=== PATIENT | male | born 1945 | race American Indian/Alaskan Native ===

== ENCOUNTER 2017-02-07 19:18 | Inpatient (IN) | payer MEDICARE ==
[2017-02-07 19:19] VITALS: PULSE 75; BMI 17.2
[2017-02-07 19:30] LABS: BASO # 0.01 K/mm3 (0.0-2.0); BASO % 0.2 % (0.0-3.0); EOS # 0.2 (0.0-0.7); EOS % 3.4 % (1.5-5.0); GRAN # 2.99 (1.4-6.5); GRAN % 48.1 % (50.0-68.0); HEMATOCRIT 41.7 % (42.0-52.0); LYMPH # 2.5 (1.2-3.4); LYMPH % 39.5 % (22.0-35.0); MEAN CELL VOLUME 87.1 fl (80.0-105.0); MEAN CORPUSCULAR HEMOGLOBIN 28.6 pg (25.0-35.0); MEAN CORPUSCULAR HGB CONC 32.9 g/dl (31.0-37.0); MEAN PLATELET VOLUME 8.7 fl (7.0-11.0); MONO # 0.6 (0.1-0.6); MONO % 8.8 % (1.0-6.0); RED CELL DISTRIBUTION WIDTH 14.7 % (11.5-14.5); WHITE BLOOD COUNT 6.2 10^3/ul (4.5-11.0)
[2017-02-07 19:40] LABS: ALB/GLOB RATIO 1.1 (1.1-1.8); ALKALINE PHOSPHATASE 67 U/L (38-126); ALT/SGPT 47 U/L (7-56); AST/SGOT 50 U/L (17-59); BILIRUBIN,TOTAL 0.7 mg/dL (0.2-1.3); BLOOD UREA NITROGEN 15 mg/dL (7-21); CALCIUM 9.9 mg/dL (8.4-10.5); CARBON DIOXIDE 28 mmol/L (21-33); CHLORIDE 102 mmol/L (98-107); CHOLESTEROL 155 mg/dL (130-200); GFR AFRICAN-AMERICAN > 60; GLUCOSE,RANDOM 103 mg/dL (70-110); POTASSIUM 4.7 mmol/L (3.6-5.0); SODIUM 142 mmol/L (132-148); TOTAL PROTEIN 8.5 g/dL (5.8-8.3)
[2017-02-07 19:42] LABS: INR 1.03 (0.93-1.08); PARTIAL THROMBOPLASTIN TIME 23.9 Seconds (23.7-30.8)
--- NOTE | 2017-02-07 19:49 | CT ---
EXAM: CT Head Without Intravenous Contrast EXAM DATE/TIME: 02/07/2017 7:22 PM CLINICAL HISTORY: The patient age is 71 years old and is male; Screening exam; Additional info: Code stroke Facility exam id and description: Ct headstroke head w/o (code stroke) TECHNIQUE: Axial computed tomography images of the head/brain without intravenous contrast. All CT scans at this facility use one or more dose reduction techniques, viz.: automated exposure control; ma/kV adjustment per patient size (including targeted exams where dose is matched to indication; i.e. head); or iterative reconstruction technique. COMPARISON: CT - HEAD W/O CONTRAST 09/29/2015 12:19:22 PM FINDINGS: Brain: The left middle cerebral artery is hyperdense, new compared to the prior study. This is concerning for a hyperdense MCA sign associated with acute ischemic change. An acute territorial type infarct is not visualized at this time. There are periventricular foci of hypodensity, likely representing small vessel ischemic disease in a patient this age. The acuity of the white matter disease is indeterminate. There is mild prominence of the sulci, compatible with atrophy. No acute intracranial hemorrhage is seen. Midline shift: There is no midline shift. Ventricles: There is stable ventriculomegaly. Bones/joints: The calvarium demonstrates no evidence for a depressed fracture. Soft tissues: No acute abnormality. Vasculature: There is atherosclerotic calcification of the cavernous internal carotid arteries and distal vertebral arteries. Sinuses: Unremarkable as visualized. No acute sinusitis. Mastoid air cells: No mastoid effusion. IMPRESSION: 1. The left middle cerebral artery is hyperdense, new compared to the prior study. This is concerning for a hyperdense MCA sign associated with acute ischemic change. An acute territorial type infarct is not visualized at this time. MRI/MRA is recommended, as clinically indicated. 2. No acute intracranial hemorrhage. 3. There are periventricular foci of hypodensity, likely representing small vessel ischemic disease in a patient this age. 4. Mild atrophy. 5. There is stable ventriculomegaly.
[2017-02-07 19:51] LABS: TROPONIN I 0.03 ng/mL
[2017-02-07 20:01] LABS: VENOUS BLOOD GAS BASE EXCESS 3.3 mmol/L (0.0-2.0); VENOUS BLOOD PH 7.39 (7.32-7.43)
--- NOTE | 2017-02-07 21:11 | CT ---
EXAM: CT Angiography Head With Intravenous Contrast EXAM DATE/TIME: 02/07/2017 8:07 PM CLINICAL HISTORY: The patient age is 71 years old and is male; Screening exam; CVA Facility exam id and description: Ct angiohd angiography head TECHNIQUE: Axial computed tomographic angiography images of the head with intravenous contrast using CT angiography protocol. All CT scans at this facility use one or more dose reduction techniques, viz.: automated exposure control; ma/kV adjustment per patient size (including targeted exams where dose is matched to indication; i.e. head); or iterative reconstruction technique. MIP reconstructed images were created and reviewed. Coronal and sagittal reformatted images were created and reviewed. CONTRAST: 139 mL of OMNI 350 administered intravenously. COMPARISON: CT - HEAD W/O (CODE STROKE) 02/07/2017 7:20:53 PM FINDINGS: Right internal carotid artery: Atherosclerotic changes are identified of the cavernous internal carotid arteries bilaterally. There is approximately 50% stenosis of the cavernous right internal carotid artery. No aneurysm. Right anterior cerebral artery: No occlusion or significant stenosis. No aneurysm. Right middle cerebral artery: No occlusion or significant stenosis. No aneurysm. Right posterior cerebral artery: The right P1 segment of the posterior cerebral artery is hypoplastic. No occlusion or significant stenosis. No aneurysm. Right vertebral artery: A dominant distal left vertebral artery is identified. There are focal areas of nonvisualized flow within the distal right vertebral artery, consistent with severe stenoses or occlusion. Otherwise, there is a diffuse decrease in caliber of the visualized right vertebral artery. Atherosclerosis is also visualized of the distal right vertebral artery. Left internal carotid artery: There is absence of flow within the petrous left internal carotid artery, consistent with occlusion. There is decreased enhancement within the proximal cavernous left internal carotid artery, consistent with decreased blood flow. Flow is poorly visualized within the distal extracranial internal carotid artery on the left side. There is a small linear focus of enhancement in this region, which may represent residual flow within the vessel versus occlusion of the internal carotid artery and a small accessory vessel. No aneurysm. Left anterior cerebral artery: No occlusion or significant stenosis. No aneurysm. Left middle cerebral artery: No occlusion or significant stenosis. No aneurysm. Left posterior cerebral artery: No occlusion or significant stenosis. No aneurysm. Left vertebral artery: See above. Basilar artery: No significant stenosis. No occlusion. No aneurysm. Sella: Small foci of gas are identified adjacent to the sella, which are nonspecific. IMPRESSION: 1. A dominant distal left vertebral artery is identified. There are focal areas of nonvisualized flow within the distal right vertebral artery, consistent with severe stenoses or occlusion. 2. There is absence of flow within the petrous left internal carotid artery, consistent with occlusion. There is decreased enhancement within the proximal cavernous left internal carotid artery, consistent with decreased blood flow. 3. Atherosclerotic changes are identified of the cavernous internal carotid arteries bilaterally. There is approximately 50% stenosis of the cavernous right internal carotid artery. 4. Flow is poorly visualized within the distal extracranial internal carotid artery on the left side. There is a small linear focus of enhancement in this region, which may represent residual flow within the vessel versus occlusion of the internal carotid artery and a small accessory vessel. Correlation with a CTA of the neck is recommended. 5. Additional CT findings described above.
--- NOTE | 2017-02-07 21:15 | ED PDOC ---
Arrival/HPI - General Chief Complaint: Weakness/Neurological Deficit Time Seen by Provider: 02/07/17 19:21 Historian: Patient - History of Present Illness Narrative History of Present Illness (Text): 02/07/17 19:21 Geo Ewing is a 71 year old male, whose past medical history includes hypertension, atrial fibrillation, throat cancer, COPD, dilated cardiomyopathy, cirrhosis, and dementia, presents to the emergency department complaining of sudden onset right sided weakness and slurred speech 25 minutes prior to arrival. Denies any fever, chills, headache, dizziness, chest pain, difficulty breathing, nausea, vomiting, diarrhea, urinary symptoms, or any other complaints at this time. Time/Duration: 1/2 hour Symptom Onset: Sudden Symptom Course: Improving Severity Level: Moderate Activities at Onset: Rest Context: Home Past Medical History - Provider Review Nursing Documentation Reviewed: Yes - Infectious Disease Hx of Infectious Diseases: None - Cardiac Hx Cardiac Disorders: Yes (cardiomyopathy) Hx Hypertension: Yes - Pulmonary Other/Comment: Throat CA 15 years ago - Neurological Hx Dementia: Yes - Hematological/Oncological Hx Anemia: Yes Hx Cancer: Yes (throat/lung) - Integumentary Other/Comment: multiple ble skin discolorations, laceration above left eyelid - Musculoskeletal/Rheumatological Hx Falls: Yes - Gastrointestinal Hx Liver Failure: Yes (cirrhosis) - Psychiatric Hx Depression: Yes Hx Substance Use: No - Surgical History Hx Inguinal Hernia Repair: Yes (right) - Anesthesia Hx Anesthesia Reactions: No Hx Malignant Hyperthermia: No - Suicidal Assessment Feels Threatened In Home Enviroment: No Family/Social History - Physician Review Nursing Documentation Reviewed: Yes Family/Social History: No Known Family HX Smoking Status: Former Smoker Hx Alcohol Use: No Hx Substance Use: No Allergies/Home Meds Allergies/Adverse Reactions: Allergies No Known Allergies Allergy (Verified 09/29/15 11:05) Home Medications: Home Meds Medication Instructions Recorded Confirmed Fludrocortisone [Florinef Acetate] 0.1 mg PO DAILY 02/07/17 02/07/17 Furosemide [Lasix] 40 mg PO DAILY 02/07/17 02/07/17 Metoprolol Tartrate 25 mg PO DAILY 02/07/17 02/07/17 Potassium Chloride [Klor-Con 10] 10 meq PO DAILY 02/07/17 02/07/17 Review of Systems - Physician Review All systems were reviewed & negative as marked: Yes - Review of Systems Constitutional: Normal. absent: Fatigue, Fevers Respiratory: Normal. absent: SOB, Cough, Sputum Cardiovascular: Normal. absent: Chest Pain, Palpitations Gastrointestinal: Normal. absent: Abdominal Pain, Diarrhea, Nausea, Vomiting Neurological: Speech Changes (slurred speech ), Other (right sided weakness ). absent: Headache, Dizziness Physical Exam Vital Signs Reviewed: Yes Vital Signs Temp Pulse Pulse Resp BP Pulse Ox 02/07/17 23:58 97.7 F 110 H 110 H 20 153/110 H 02/07/17 23:46 166/109 H 02/07/17 23:37 112 H 184/108 H 20 L 02/07/17 19:25 99.4 F 113 H 20 183/127 H 99 Temperature: Afebrile Blood Pressure: Hypertensive Pulse: Tachycardic Respiratory Rate: Normal Appearance: Positive for: Well-Appearing, Non-Toxic, Comfortable Pain Distress: None Mental Status: Positive for: Alert and Oriented X 3 Finger Stick Blood Glucose: 114 - Systems Exam Head: Present: Atraumatic, Normocephalic Pupils: Present: PERRL Conjunctiva: Present: Normal Mouth: Present: Moist Mucous Membranes Respiratory/Chest: Present: Clear to Auscultation, Good Air Exchange. No: Respiratory Distress, Accessory Muscle Use Cardiovascular: Present: Regular Rate and Rhythm, Normal S1, S2. No: Murmurs Abdomen: Present: Normal Bowel Sounds. No: Tenderness, Distention, Peritoneal Signs Upper Extremity: Present: NORMAL PULSES, Neurovascularly Intact, Other (right upper extremity weakness ). No: Cyanosis, Edema Lower Extremity: Present: NORMAL PULSES, Neurovascularly Intact, Other (right lower extremity weakness. ). No: Edema, CALF TENDERNESS Neurological: Present: GCS=15, CN II-XII Intact. No: Speech Normal (slurred speech ) Skin: Present: Warm, Dry, Normal Color. No: Rashes Psychiatric: Present: Alert, Oriented x 3 Medical Decision Making ED Course and Treatment: Impression: A 71 year old male who presents to the emergency department complaining of right sided weakness and slurred speech for 25 minutes prior to arrival. Plan: -- EKG -- CT Head -- Labs -- Chest X-ray -- Reassess and disposition Progress Notes: 02/07/17 19:[address] Head results reviewed: IMPRESSION: 1. The left middle cerebral artery is hyperdense, new compared to the prior study. This is concerning for a hyperdense MCA sign associated with acute ischemic change. An acute territorial type infarct is not visualized at this time. MRI/MRA is recommended, as clinically indicated. 2. No acute intracranial hemorrhage. 3. There are periventricular foci of hypodensity, likely representing small vessel ischemic disease in a patient this age. 4. Mild atrophy. 5. There is stable ventriculomegaly. CT angio head results reviewed: IMPRESSION: 1. A dominant distal left vertebral artery is identified. There are focal areas of nonvisualized flow within the distal right vertebral artery, consistent with severe stenoses or occlusion. 2. There is absence of flow within the petrous left internal carotid artery, consistent with occlusion. There is decreased enhancement within the proximal cavernous left internal carotid artery, consistent with decreased blood flow. 3. Atherosclerotic changes are identified of the cavernous internal carotid arteries bilaterally. There is approximately 50% stenosis of the cavernous right internal carotid artery. 4. Flow is poorly visualized within the distal extracranial internal carotid artery on the left side. There is a small linear focus of enhancement in this region, which may represent residual flow within the vessel versus occlusion of the internal carotid artery and a small accessory vessel. Correlation with a CTA of the neck is recommended. 5. Additional CT findings described above. 02/07/17 22:[address] Bray who is aware and agrees with the plan to admit patient to telemetry for TIA. Accepts patient under hospitalist service. - Lab Interpretations Lab Results: 02/07/17 19:22 02/07/17 19:22 Lab Results 02/07/17 19:50: pO2 44, VBG pH 7.39, VBG pCO2 48.0, VBG HCO3 29.1 H, VBG Total CO2 30.6 H, VBG O2 Sat (Calc) 83.5 H, VBG Base Excess 3.3 H, VBG Potassium 4.3, Glucose 107, Lactate 1.6, FiO2 21.0, Sodium 138.0, Chloride 104.0, Venous Blood Potassium 4.3 02/07/17 19:22: Blood Type O POSITIVE, Antibody Screen Negative, BBK History Checked Patient has bt 02/07/17 19:22: Hemoglobin A1c 5.3 02/07/17 19:22: Sodium 142, Potassium 4.7, Chloride 102, Carbon Dioxide 28, Anion Gap 17, BUN 15, Creatinine 1.3, Est GFR ( Amer) > 60, Est GFR (Non- Af Amer) 55, Random Glucose 103, Calcium 9.9, Total Bilirubin 0.7, AST 50, ALT 47, Alkaline Phosphatase 67, Troponin I 0.03 D, Total Protein 8.5 H, Albumin 4.5, Globulin 4.0, Albumin/Globulin Ratio 1.1, Triglycerides 85, Cholesterol 155 , LDL Cholesterol Direct 71, HDL Cholesterol 62 H 02/07/17 19:22: PT 11.1, INR 1.03, APTT 23.9 02/07/17 19:22: WBC 6.2, RBC 4.79, Hgb 13.7 L, Hct 41.7 L, MCV 87.1, MCH 28.6, MCHC 32.9, RDW 14.7 H, Plt Count 194, MPV 8.7, Gran % 48.1 L, Lymph % (Auto) 39.5 H, Calloway % (Auto) 8.8 H, Eos % (Auto) 3.4, Baso % (Auto) 0.2, Gran # 2.99, Lymph # 2.5, Calloway # 0.6, Eos # 0.2, Baso # 0.01 I have reviewed the lab results: Yes - RAD Interpretation Narrative RAD Interpretations (Text): EXAM: CT Head Without Intravenous Contrast FINDINGS: Brain: The left middle cerebral artery is hyperdense, new compared to the prior study. This is concerning for a hyperdense MCA sign associated with acute ischemic change. An acute territorial type infarct is not visualized at this time. There are periventricular foci of hypodensity, likely representing small vessel ischemic disease in a patient this age. The acuity of the white matter disease is indeterminate. There is mild prominence of the sulci, compatible with atrophy. No acute intracranial hemorrhage is seen. Midline shift: There is no midline shift. Ventricles: There is stable ventriculomegaly. Bones/joints: The calvarium demonstrates no evidence for a depressed fracture. Soft tissues: No acute abnormality. Vasculature: There is atherosclerotic calcification of the cavernous internal carotid arteries and distal vertebral arteries. Sinuses: Unremarkable as visualized. No acute sinusitis. Mastoid air cells: No mastoid effusion. IMPRESSION: 1. The left middle cerebral artery is hyperdense, new compared to the prior study. This is concerning for a hyperdense MCA sign associated with acute ischemic change. An acute territorial type infarct is not visualized at this time. MRI/MRA is recommended, as clinically indicated. 2. No acute intracranial hemorrhage. 3. There are periventricular foci of hypodensity, likely representing small vessel ischemic disease in a patient this age. 4. Mild atrophy. 5. There is stable ventriculomegaly. EXAM: CT Angiography Head With Intravenous Contrast Dictated and Authenticated by: Burke Morocho MD FINDINGS: Right internal carotid artery: Atherosclerotic changes are identified of the cavernous internal carotid arteries bilaterally. There is approximately 50% stenosis of the cavernous right internal carotid artery. No aneurysm. Right anterior cerebral artery: No occlusion or significant stenosis. No aneurysm. Right middle cerebral artery: No occlusion or significant stenosis. No aneurysm. Right posterior cerebral artery: The right P1 segment of the posterior cerebral artery is hypoplastic. No occlusion or significant stenosis. No aneurysm. Right vertebral artery: A dominant distal left vertebral artery is identified. There are focal areas of nonvisualized flow within the distal right vertebral artery, consistent with severe stenoses or occlusion. Otherwise, there is a diffuse decrease in caliber of the visualized right vertebral artery. Atherosclerosis is also visualized of the distal right vertebral artery. Left internal carotid artery: There is absence of flow within the petrous left internal carotid artery, consistent with occlusion. There is decreased enhancement within the proximal cavernous left internal carotid artery, consistent with decreased blood flow. Flow is poorly visualized within the distal extracranial internal carotid artery on the left side. There is a small linear focus of enhancement in this region, which may represent residual flow within the vessel versus occlusion of the internal carotid artery and a small accessory vessel. No aneurysm. Left anterior cerebral artery: No occlusion or significant stenosis. No aneurysm. Left middle cerebral artery: No occlusion or significant stenosis. No aneurysm. Left posterior cerebral artery: No occlusion or significant stenosis. No aneurysm. Left vertebral artery: See above. Basilar artery: No significant stenosis. No occlusion. No aneurysm. Sella: Small foci of gas are identified adjacent to the sella, which are nonspecific. IMPRESSION: 1. A dominant distal left vertebral artery is identified. There are focal areas of nonvisualized flow within the distal right vertebral artery, consistent with severe stenoses or occlusion. 2. There is absence of flow within the petrous left internal carotid artery, consistent with occlusion. There is decreased enhancement within the proximal cavernous left internal carotid artery, consistent with decreased blood flow. 3. Atherosclerotic changes are identified of the cavernous internal carotid arteries bilaterally. There is approximately 50% stenosis of the cavernous right internal carotid artery. 4. Flow is poorly visualized within the distal extracranial internal carotid artery on the left side. There is a small linear focus of enhancement in this region, which may represent residual flow within the vessel versus occlusion of the internal carotid artery and a small accessory vessel. Correlation with a CTA of the neck is recommended. 5. Additional CT findings described above. 02/07/17 22:08 Radiology Orders: 02/07/17 19:22 HEAD W/O (CODE STROKE) [CT] Stat CHEST PORTABLE [RAD] Stat 02/07/17 20:07 ANGIOGRAPHY HEAD [CT] Stat Remote Broadcast Technician: Radiologist - Medication Orders Current Medication Orders: Aspirin (Aspirin Chewable) 81 mg PO DAILY [facility] Atorvastatin Calcium (Lipitor) 40 mg PO DIN [facility] Docusate Sodium (Colace) 100 mg PO BID [facility] Last Admin: 02/08/17 11:18 Dose: 100 mg Fludrocortisone Acetate (Florinef) 0.1 mg PO DAILY [facility] Last Admin: 02/08/17 09:47 Dose: 0.1 mg Furosemide (Lasix) 40 mg PO DAILY [facility] Last Admin: 02/08/17 09:47 Dose: 40 mg Heparin Sodium (Porcine) (Heparin) 5,000 units SC Q12 [facility] PRN Reason: Protocol Last Admin: 02/08/17 09:48 Dose: 5,000 units Metoprolol Tartrate (Lopressor) 25 mg PO DAILY [facility] Last Admin: 02/08/17 09:47 Dose: 25 mg Pantoprazole Sodium (Protonix Inj) 40 mg IVP DAILY [facility] Last Admin: 02/08/17 09:48 Dose: 40 mg Polyethylene Glycol (Miralax) 17 gm PO DAILY [facility] Last Admin: 02/08/17 11:18 Dose: 17 gm Potassium Chloride (Klor-Con 10) 10 meq PO DAILY [facility] Last Admin: 02/08/17 09:46 Dose: 10 meq Thiamine HCl (Vitamin B1 Tab) 100 mg PO BID [facility] Discontinued Medications Aspirin (Aspirin) 325 mg PO DAILY [facility] Last Admin: 02/08/17 09:46 Dose: 325 mg Aspirin (Ecotrin) Confirm Administered Dose 325 mg PO .STK-MED ONE Stop: 02/07/17 23:54 Last Admin: 02/08/17 00:00 Dose: Aspirin (Ecotrin) 325 mg PO STAT STA Stop: 02/07/17 23:54 Last Admin: 02/07/17 23:59 Dose: 325 mg Iohexol (Omnipaque 350 150 Ml) Confirm Administered Dose 150 ml .ROUTE .STK-MED ONE Stop: 02/07/17 20:13 NIHSS Scale (Bessie) Time Performed: 19:22 - How Severe is the Stoke Baseline Level of Consciousness: 0=Alert LOC to Questions: 0=Both comments correct LOC to commands: 0=Obeys both correctly Best Gaze: 0=Normal Visual: 0=No visual loss Facial: 0=Normal Motor Arm - Left: 0=No drift Motor Arm - Right: 3=No effort against gravity (falls immediately) Motor Leg - Left: 0=No drift Motor Leg - Right: 3=No effort against gravity (falls immediately) Limb Ataxia: 1=Present Upper or Lower Sensory: 1=Mild to moderate loss Best Language: 0=No aphasia Dysarthia: 1=Mild to moderate slurring Extinction & Inattention (Neglect): 1=Partial neglect (mild alfa-attention) Score: 10 Risk Level: Mod Stroke Risk rTPA Inclusion/Exclusion - Refusal of Treatment Patient Refused Treatment: No - Inclusion Criteria for Altepase Patient is 18 years or Older: Yes The Clinical Diagnosis of Ischemic Stroke That is Causing a Potentially Disabling Neurological Deficit: Yes Time of Onset is Well Established to be Less Than 270 Minute Before Treatment Would Begin: Yes Risk/Benefit Discussed With Patient/Family Member Present: Yes - Exclusion Criteria for Altepase Uncontrolled Hypertension at Time of Treatment (Systolic BP above 185 or Diastolic BP above 110 mmHg): No Active Internal Bleeding: No Known Bleeding Diathesis Including but Not Limited to: Platelets Below 100,000/ mm,PTT Above 40 sec After Heparin Use, Current Use of Oral Anitcoagulant With INR Greater Than 1.7 or PT Greater Than 15 secs: No Evidence of an Intracranial Hemorrhage: No Evidence of Major Acute Infarct With Signs Greater Than 1/3 MCA Territory: No Suspicion of Subarachnoid Hemorrhage on Pretreatment Evaluation Even if CT Head Negative For Hemorrhage: No - Warning to TPA With Conditions Condition: Rapid Improvement - Scribe Statement The provider has reviewed the documentation as recorded by the Hadleyibe King Godinez Provider Attestation: Provider Scribe Attestation: All medical record entries made by the Fernando were at my direction and personally dictated by me. I have reviewed the chart and agree that the record accurately reflects my personal performance of the history, physical exam, medical decision making, and the department course for this patient. I have also personally directed, reviewed, and agree with the discharge instructions and disposition. Disposition/Present on Arrival - Present on Arrival Any Indicators Present on Arrival: No History of DVT/PE: No History of Uncontrolled Diabetes: No Urinary Catheter: No History of Decub. Ulcer: No History Surgical Site Infection Following: None - Disposition Have Diagnosis and Disposition been Completed?: Yes Diagnosis: Transient ischemic attack (TIA) Disposition: HOSPITALIZED Disposition Time: 22:00 Condition: FAIR
--- NOTE | 2017-02-07 23:39 | CP.PCM.HP ---
History of Present Illness - History of Present Illness History of Present Illness: Geo Ewing is a 71 year old male with PMH of hypertension, atrial fibrillation, throat cancer, COPD, dilated cardiomyopathy, cirrhosis, and dementia, presents with complaining of sudden onset right sided weakness and slurred speech 25 minutes prior to arrival. Unable to get a complete ROS due to mental status. PMH: hypertension, atrial fibrillation, throat cancer, COPD, dilated cardiomyopathy, cirrhosis, and dementia PSH: unable to obtain FamilyHx: unable to obtain Meds: Metropolol, Klor Con, Lasix, Fludrocortisone Allergies: NKDA Social: Tobacco use in the past Present on Admission - Present on Admission Any Indicators Present on Admission: No Review of Systems - Review of Systems Systems not reviewed;Unavailable: Dementia Past Patient History - Infectious Disease Hx of Infectious Diseases: None - Past Social History Smoking Status: Former Smoker - CARDIAC Hx Cardiac Disorders: Yes (cardiomyopathy) Hx Hypertension: Yes - PULMONARY Other/Comment: Throat CA 15 years ago - NEUROLOGICAL Hx Dementia: Yes - HEMATOLOGICAL/ONCOLOGICAL Hx Anemia: Yes Hx Cancer: Yes (throat/lung) - INTEGUMENTARY Other/Comment: multiple ble skin discolorations, laceration above left eyelid - MUSCULOSKELETAL/RHEUMATOLOGICAL Hx Falls: Yes - GASTROINTESTINAL Hx Liver Failure: Yes (cirrhosis) - PSYCHIATRIC Hx Depression: Yes Hx Substance Use: No - SURGICAL HISTORY Hx Herniorrhaphy: Yes - ANESTHESIA Hx Anesthesia Reactions: No Hx Malignant Hyperthermia: No Meds Home Medications: Home Medication List Medication Instructions Recorded Confirmed Type Atorvastatin [Lipitor] 40 mg PO DIN #30 tab 02/09/17 Rx Rivaroxaban [Xarelto] 20 mg PO DAILY #30 tab 02/09/17 Rx Thiamine [Vitamin B1 Tab] 100 mg PO BID #14 tab 02/09/17 Rx Allergies/Adverse Reactions: Allergies Allergy/AdvReac Type Severity Reaction Status Date / Time No Known Allergies Allergy Verified 09/29/15 11:05 Physical Exam - Constitutional Appears: Confused, Cachectic - Head Exam Head Exam: NORMAL INSPECTION - Eye Exam Eye Exam: Normal appearance - Respiratory Exam Respiratory Exam: NORMAL BREATHING PATTERN - Extremities Exam Additional comments: 4/5 Strength in upper and lower extremeties - Neurological Exam Neurological exam: Reflexes Normal Additional comments: not oriented to person, place or time Results - Vital Signs Recent Vital Signs: Last Vital Signs Temp 99.4 F 02/07/17 19:25 Pulse 113 H 09/12/17 19:25 Resp 20 02/07/17 19:25 BP 183/127 H 02/07/17 19:25 Pulse Ox 99 02/07/17 19:25 - Labs Result Diagrams: 02/09/17 06:50 02/09/17 06:50 Assessment & Plan - Assessment and Plan (Free Text) Assessment: Geo Ewing is a 71 year old male with PMH of hypertension, atrial fibrillation, throat cancer, COPD, dilated cardiomyopathy, cirrhosis, and dementia, presents with complaining of sudden onset right sided weakness and slurred speech 25 minutes prior to arrival. Patient worked up for TIA. Plan: 1. TIA- rule out acute stroke - code stroke called - began stroke workup - CT head ordered and obtained: The left middle cerebral artery is hyperdense, new compared to the prior study. This is concerning for a hyperdense MCA sign associated with acute ischemic change. An acute territorial type infarct is not visualized at this time. MRI/MRA is recommended , as clinically indicated. No acute intracranial hemorrhage. There are periventricular foci of hypodensity, likely representing small vessel ischemic disease in a patient this age. Mild atrophy. There is stable ventriculomegaly. - CT angio of the head ordered and obtained: A dominant distal left vertebral artery is identified. There are focal areas of nonvisualized flow within the distal right vertebral artery, consistent with severe stenoses or occlusion. There is absence of flow within the petrous left internal carotid artery, consistent with occlusion. There is decreased enhancement within the proximal cavernous left internal carotid artery, consistent with decreased blood flow. Atherosclerotic changes are identified of the cavernous internal carotid arteries bilaterally. There is approximately 50% stenosis of the cavernous right internal carotid artery. Flow is poorly visualized within the distal extracranial internal carotid artery on the left side. There is a small linear focus of enhancement in this region, which may represent residual flow within the vessel versus occlusion of the internal carotid artery and a small accessory vessel. -Per David from ED, Dr. Rivera was spoken to about the stenosis in the carotid artery and he mentioned the use of TPA to the daughter of the patient, and she she said no to the use of it. - Neurology Dr. Rivera consulted - Started on Aspirin 325 - Placed on Neuro Check every 4 hours - Stroke scale ordered - Swallow evaluation ordered - Lipid panel ordered 2. COPD - medication if needed currently pt not clinically in respiratory distress or wheezing 3. Dilated Cardiomyopathy - continue lasix 4. HTN -continue home med lasix 5. Hx Afib - continue metropolol 6. DVT Prophylaxis - started on heparin 7. GI prophylaxis -started on protonix
[2017-02-07] MEDS ORDERED: Aspirin 325 mg EC Tablets PO ONE (23:53)
[2017-02-07] MEDS ORDERED: Aspirin 325 mg EC Tablets PO STA (23:53)
[2017-02-08 07:10] LABS: ALB/GLOB RATIO 1.1 (1.1-1.8); ALKALINE PHOSPHATASE 48 U/L (38-126); ALT/SGPT 40 U/L (7-56); AST/SGOT 37 U/L (17-59); BILIRUBIN,TOTAL 0.7 mg/dL (0.2-1.3); BLOOD UREA NITROGEN 14 mg/dL (7-21); CALCIUM 9.3 mg/dL (8.4-10.5); CARBON DIOXIDE 27 mmol/L (21-33); CHLORIDE 104 mmol/L (98-107); GFR AFRICAN-AMERICAN > 60; GLUCOSE,RANDOM 89 mg/dL (70-110); POTASSIUM 4.3 mmol/L (3.6-5.0); SODIUM 140 mmol/L (132-148); TOTAL PROTEIN 6.7 g/dL (5.8-8.3)
--- NOTE | 2017-02-08 08:56 | RAD ---
HISTORY: cva COMPARISON: 09/29/2015 FINDINGS: LUNGS: No active pulmonary disease. PLEURA: No significant pleural effusion identified, no pneumothorax apparent. CARDIOVASCULAR: Normal. OSSEOUS STRUCTURES: No significant abnormalities. VISUALIZED UPPER ABDOMEN: Normal. OTHER FINDINGS: None. IMPRESSION: No active disease.
[2017-02-08] MEDS: Potassium Chloride 10 mEq ER Tab PO SCH (09:46)
[2017-02-08] MEDS ORDERED: POLYETHYLENE GLYCOL 3350 17 GM/Dose PACKET PO SCH (10:00)
--- NOTE | 2017-02-08 10:02 | CARD ---
APPROVED REPORT EKG Measurement Heart [id number] NH 208P [id number] <Conclusion> Sinus tachycardia Nonspecific ST and T wave abnormality High Voltage-LVH.
[2017-02-08] MEDS: POLYETHYLENE GLYCOL 3350 17 GM/Dose PACKET PO SCH (11:18)
[2017-02-08 11:49] LABS: CHOLESTEROL 127 mg/dL (130-200)
--- NOTE | 2017-02-08 11:50 | CP.PCM.PN ---
<PABLITO THAKKAR - Last Filed: 02/08/17 15:35> Subjective - Date & Time of Evaluation Date of Evaluation: 02/08/17 Time of Evaluation: 10:00 - Subjective Subjective: patient was seen and examined bedside. Unable to verbalize any complaints. Objective - Vital Signs/Intake and Output Vital Signs (last 24 hours): Temp Pulse Resp BP Pulse Ox 98.9 F 115 H 20 136/85 99 02/08/17 06:00 02/08/17 10:00 02/08/17 06:00 02/08/17 09:47 02/08/17 06:00 Intake and Output: 02/08/17 02/08/17 06:59 18:59 Intake Total 380 Output Total 400 Balance -20 - Medications Medications: Current Medications Aspirin (Aspirin) 325 mg PO DAILY [facility] Last Admin: 02/08/17 09:46 Dose: 325 mg Docusate Sodium (Colace) 100 mg PO BID [facility] Last Admin: 02/08/17 11:18 Dose: 100 mg Fludrocortisone Acetate (Florinef) 0.1 mg PO DAILY [facility] Last Admin: 02/08/17 09:47 Dose: 0.1 mg Furosemide (Lasix) 40 mg PO DAILY [facility] Last Admin: 02/08/17 09:47 Dose: 40 mg Heparin Sodium (Porcine) (Heparin) 5,000 units SC Q12 [facility] PRN Reason: Protocol Last Admin: 02/08/17 09:48 Dose: 5,000 units Metoprolol Tartrate (Lopressor) 25 mg PO DAILY [facility] Last Admin: 02/08/17 09:47 Dose: 25 mg Pantoprazole Sodium (Protonix Inj) 40 mg IVP DAILY [facility] Last Admin: 02/08/17 09:48 Dose: 40 mg Polyethylene Glycol (Miralax) 17 gm PO DAILY [facility] Last Admin: 02/08/17 11:18 Dose: 17 gm Potassium Chloride (Klor-Con 10) 10 meq PO DAILY [facility] Last Admin: 02/08/17 09:46 Dose: 10 meq - Labs Labs: 02/08/17 05:30 PT 11.1 Seconds (9.9-11.8) 02/07/17 19:22 INR 1.03 (0.93-1.08) 02/07/17 19:22 APTT 23.9 Seconds (23.7-30.8) 02/07/17 19:22 - Constitutional Appears: No Acute Distress, Confused, Cachectic, Chronically Ill - Head Exam Head Exam: ATRAUMATIC, NORMAL INSPECTION - Eye Exam Eye Exam: Normal appearance, PERRL - ENT Exam ENT Exam: Mucous Membranes Moist Additional comments: L cheek is more puffed than R s/p throat CA - Neck Exam Neck Exam: Normal Inspection. absent: Lymphadenopathy, Meningismus - Respiratory Exam Respiratory Exam: Clear to Ausculation Bilateral, NORMAL BREATHING PATTERN. absent: Rales, Rhonchi, Wheezes, Respiratory Distress - Cardiovascular Exam Cardiovascular Exam: Tachycardia, REGULAR RHYTHM. absent: Gallop, JVD, Rubs, Murmur - GI/Abdominal Exam GI & Abdominal Exam: Soft, Normal Bowel Sounds. absent: Distended, Tenderness - Extremities Exam Extremities Exam: Full ROM, Normal Inspection. absent: Pedal Edema - Back Exam Back Exam: Full ROM, NORMAL INSPECTION - Neurological Exam Neurological Exam: Altered (pt follows simple commands, but is not able to verbalize words). absent: Motor Sensory Deficit, Oriented x3 (oriented x1 ( responds to name, but unable to verbalize other answers)) Neuro motor strength exam: Left Upper Extremity: 5, Right Upper Extremity: 5, Left Lower Extremity: 5, Right Lower Extremity: 5 Additional comments: pt not slurring words pt is aphasic no facial drooping noted - Skin Skin Exam: Normal Color, Warm Assessment and Plan - Assessment and Plan (Free Text) Assessment: 71 year old male with PMH of hypertension, atrial fibrillation, throat cancer, COPD, dilated cardiomyopathy, cirrhosis, and baseline dementia, presents with sudden onset "right sided weakness and slurred speech 25 minutes prior to arrival." Code stroke was called; NIHSS in ED was 10. TIA likely because pt currently shows no focal deficits or facial palsy. Difficult to assess baseline due to aphasia 2/2 ?old CVA vs dementia Plan: 1. TIA vs CVA - CT head showed hyperdense MCA sign associated with acute ischemic change. No acute intracranial hemorrhage. There are periventricular foci of hypodensity, likely representing small vessel ischemic disease in a patient this age. Mild atrophy. There is stable ventriculomegaly. - CT angio of the head showed focal areas of nonvisualized flow within the distal right vertebral artery, consistent with severe stenoses or occlusion. absence of flow within the petrous left internal carotid artery, consistent with occlusion. There is approximately 50% stenosis of the cavernous right internal carotid artery. - tPA was offered to pt by Dr. Rivera, but daughter refused; unclear why at this point - Neurology consulted, recs appreciated - ASA 81 and Lipitor 40mg PO daily - thiamine 100mg PO BID started per Neuro recs - PT/OT eval - f/u brain MRI and MRA neck 2. Hx COPD - pt not clinically in resp distress or wheezing 3. Hx Dilated Cardiomyopathy - continue lasix 40mg PO daily 4. Hx HTN - continue home meds metropolol and lasix - maintain SBP 120-130's, avoid aggressive drops in BP to avoid watershed infarct 5. Hx Afib - currently sinus tachy - pt on metoprolol HHD heparin/protonix Patient was seen, evaluated and discussed with attending, Dr. Asa Thakkar PGY1 <Yohana Bray - Last Filed: 02/10/17 18:30> Objective - Vital Signs/Intake and Output Vital Signs (last 24 hours): Temp Pulse Resp BP Pulse Ox 91.3 F L 76 20 123/92 H 99 02/10/17 12:00 02/10/17 10:05 02/10/17 06:00 02/10/17 12:00 02/10/17 06:00 - Labs Labs: 02/10/17 06:40 02/10/17 06:40 PT 11.1 Seconds (9.9-11.8) 02/07/17 19:22 INR 1.03 (0.93-1.08) 02/07/17 19:22 APTT 23.9 Seconds (23.7-30.8) 02/07/17 19:22 Attending/Attestation - Attestation I have personally seen and examined this patient.: Yes I have fully participated in the care of the patient.: Yes I have reviewed all pertinent clinical information, including history, physical exam and plan: Yes Notes (Text): I have seen and examined the patient at bedside. Agree with the above note with the following additions/ exceptions: Briefly this is 71 year old male with dementia, HTN, PAF, throat cancer, COPD, DCMP and cirrhosis who was admitted with right sided weakness and slurred speech due to CVA. CT head was noted. TPA was refused by the patients daughter. Patient passed swallow eval. Continue aspirin, thiamine and lipitor. PT eval pending. Neuro recommended MRI and MRA. Patient is in sinus rhythm and is rate controlled. He was on xarelto however was non complaint due to the side effects. Dr Yohana Bray.
--- NOTE | 2017-02-08 13:16 | CP.PCM.CON ---
<Sam Luo - Last Filed: 02/08/17 13:04> History of Present Illness - History of Present Illness History of Present Illness: Neuorology Consult Note for Dr. Rivera Service Consulted for TIA HPI: This is a 71 yo AA M with PMH of hypertension, atrial fibrillation, throat cancer, COPD, dilated cardiomyopathy, cirrhosis, and dementia who was brought to [facility] for sudden onset right-sided weakness and slurred speech, ~25 minutes prior to arrival. HPI/ROS limited due to patient's dementia, and no family present at time of exam. Details obtained from ED charting and discussion with admitting team. Patient without clear right-sided weakness or motor deficit at time of examination by admitting team, some slurred speech but unclear what patient's baseline speech is. CT head was notable for hyperdense MCA sign on the left, and CT angio of head was obtained, notable for R verterbal artery stenosis vs occlusion and possible occlusion of petrous L ICA. In discussion with Neuro, tPA was recommended, but as per ED and admitting team notes, the patient's daughter refused tPA. Patient was given ASA 324 mg, PMH: as above PSH: right inguinal hernia repair (per charting) FHx: unknown SHx: Tobacco use documented in the past, no reported EtOH or Illicit use PMD: None recorded Review of Systems - Review of Systems Systems not reviewed;Unavailable: Dementia Past Patient History - Infectious Disease Hx of Infectious Diseases: None - Past Social History Smoking Status: Former Smoker - CARDIAC Hx Cardiac Disorders: Yes (cardiomyopathy) Hx Hypertension: Yes - PULMONARY Other/Comment: Throat CA 15 years ago - NEUROLOGICAL Hx Dementia: Yes - HEENT Hx HEENT Problems: No - RENAL Hx Chronic Kidney Disease: No - ENDOCRINE/METABOLIC Hx Endocrine Disorders: No - HEMATOLOGICAL/ONCOLOGICAL Hx Anemia: Yes Hx Cancer: Yes (throat/lung) - INTEGUMENTARY Other/Comment: multiple ble skin discolorations, laceration above left eyelid - MUSCULOSKELETAL/RHEUMATOLOGICAL Hx Falls: Yes - GASTROINTESTINAL Hx Liver Failure: Yes (cirrhosis) - PSYCHIATRIC Hx Depression: Yes Hx Substance Use: No - SURGICAL HISTORY Hx Herniorrhaphy: Yes - ANESTHESIA Hx Anesthesia Reactions: No Hx Malignant Hyperthermia: No Meds Allergies/Adverse Reactions: Allergies Allergy/AdvReac Type Severity Reaction Status Date / Time No Known Allergies Allergy Verified 09/29/15 11:05 - Medications Medications: Current Medications Aspirin (Aspirin) 325 mg PO DAILY [facility] Last Admin: 02/08/17 09:46 Dose: 325 mg Docusate Sodium (Colace) 100 mg PO BID [facility] Last Admin: 02/08/17 11:18 Dose: 100 mg Fludrocortisone Acetate (Florinef) 0.1 mg PO DAILY [facility] Last Admin: 02/08/17 09:47 Dose: 0.1 mg Furosemide (Lasix) 40 mg PO DAILY [facility] Last Admin: 02/08/17 09:47 Dose: 40 mg Heparin Sodium (Porcine) (Heparin) 5,000 units SC Q12 [facility] PRN Reason: Protocol Last Admin: 02/08/17 09:48 Dose: 5,000 units Metoprolol Tartrate (Lopressor) 25 mg PO DAILY [facility] Last Admin: 02/08/17 09:47 Dose: 25 mg Pantoprazole Sodium (Protonix Inj) 40 mg IVP DAILY [facility] Last Admin: 02/08/17 09:48 Dose: 40 mg Polyethylene Glycol (Miralax) 17 gm PO DAILY [facility] Last Admin: 02/08/17 11:18 Dose: 17 gm Potassium Chloride (Klor-Con 10) 10 meq PO DAILY [facility] Last Admin: 02/08/17 09:46 Dose: 10 meq Physical Exam - Constitutional Appears: Non-toxic, No Acute Distress, Chronically Ill Additional comments: Exam limited due to patient's poor comprehension, physically able to follow commands but often does not understand command or does opposite of command ( i.e. bending arm when told to straighten arm). - Head Exam Head Exam: ATRAUMATIC, NORMAL INSPECTION, NORMOCEPHALIC - Eye Exam Eye Exam: EOMI, Normal appearance, PERRL. absent: Conjunctival injection, Scleral icterus Pupil Exam: NORMAL ACCOMODATION, PERRL. absent: Fixed, Irregular, Unequal - ENT Exam ENT Exam: Mucous Membranes Moist. absent: Mucous Membranes Dry - Neck Exam Neck exam: Positive for: Full Rom - Respiratory Exam Respiratory Exam: Decreased Breath Sounds (mildly decreased breath sounds in all irwin), Clear to Auscultation Bilateral, NORMAL BREATHING PATTERN. absent : Accessory Muscle Use, Chest Wall Tenderness, Rales, Rhonchi, Wheezes - Cardiovascular Exam Cardiovascular Exam: Tachycardia, REGULAR RHYTHM, +S1, +S2. absent: Bradycardia , Irregular Rhythm, JVD, +S4 - GI/Abdominal Exam GI & Abdominal Exam: Normal Bowel Sounds, Soft. absent: Diminished Bowel Sounds , Distended, Firm, Guarding, Hyperactive Bowel Sounds, Hypoactive Bowel Sounds, Rigid, Tenderness - Extremities Exam Extremities exam: Positive for: normal capillary refill, normal inspection, pedal pulses present. Negative for: calf tenderness, pedal edema - Neurological Exam Additional comments: awake and alert, not oriented at all and speaking non-sensically Some spontaneous movements of all extremities Gross movement of extremities is intact, but (likely due to poor comprehension) not following commands appropriately Muscle strength 5/5 on bilateral UE and LE, 5/5 cash controller strength No facial muscle droop, no tongue fasiculations at rest or deviation when extruded, no ataxia with upper extremity movement, no resting or intention tremors, no pronator drift - Psychiatric Exam Additional comments: Not grossly agitated or anxious, pleasantly demented, not oriented at all Speaking non-sensically, can answer yes/no questions but unclear that he is answering appropriately Word finding difficulties - Skin Skin Exam: Dry, Intact, Normal Color, Warm Results - Vital Signs Recent Vital Signs: Last Vital Signs Temp 97.7 F 02/08/17 12:00 Pulse 111 H 02/08/17 12:00 Resp 20 02/08/17 12:00 BP 122/86 02/08/17 12:00 Pulse Ox 99 02/08/17 06:00 - Labs Result Diagrams: 02/07/17 19:22 02/08/17 05:30 Labs: Laboratory Results - last 24 hr 02/08/17 02/08/17 02/08/17 05:30 07:13 11:06 Sodium 140 Potassium 4.3 Chloride 104 Carbon Dioxide 27 Anion Gap 13 BUN 14 Creatinine 1.2 Est GFR ( Amer) > 60 Est GFR (Non-Af Amer) 60 POC Glucose (mg/dL) 96 100 Random Glucose 89 Calcium 9.3 Total Bilirubin 0.7 AST 37 ALT 40 Alkaline Phosphatase 48 Total Protein 6.7 Albumin 3.5 Globulin 3.3 Albumin/Globulin Ratio 1.1 Triglycerides Cholesterol LDL Cholesterol Direct HDL Cholesterol TSH 3rd Generation 02/08/17 02/08/17 11:30 11:30 Sodium Potassium Chloride Carbon Dioxide Anion Gap BUN Creatinine Est GFR ( Amer) Est GFR (Non-Af Amer) POC Glucose (mg/dL) Random Glucose Calcium Total Bilirubin AST ALT Alkaline Phosphatase Total Protein Albumin Globulin Albumin/Globulin Ratio Triglycerides 62 Cholesterol 127 L LDL Cholesterol Direct 57 HDL Cholesterol 47 TSH 3rd Generation 1.77 Assessment & Plan - Assessment and Plan (Free Text) Assessment: This is a 71 yo AA M with PMH of hypertension, atrial fibrillation, throat cancer, COPD, dilated cardiomyopathy, cirrhosis, and dementia who was brought to [facility] for sudden onset right-sided weakness and slurred speech, ~25 minutes prior to arrival. Due to concern for stroke at time of admission, tPA was recommended and offered, but patient's daughter refused. At this time, patient appears to have had a TIA, given resolution of his weakness and no signs of any sided neurological deficit. The possible occlusions on his CT angio of the head may represent vasospasm caught at time of scanning. Will obtain and MRI of brain and MRA of the neck to confirm no acute disease process. His altered mental status is likely 2/2 underlying dementia and chronic medical conditions, may also be a component of hospital- associated delirium. Given elevated BP's at time of admission (SBP 180's), likely a hypertensive urgency component as well. Plan: 1) ASA 81mg PO daily and Lipitor 40mg PO daily for stroke prevention 2) f/u Brain MRI and Neck MRA 3) Maintain SBP 120-130's, avoid aggressive drops in blood pressure to avoid watershed infarct 4) PT/OT 5) Thiamine 100mg PO BID 6) PT/OT Patient seen, reviewed, and examined with attending, Dr. Rivera. <Sunil Rivera - Last Filed: 02/08/17 13:35> Meds - Medications Medications: Current Medications Aspirin (Aspirin) 325 mg PO DAILY [facility] Last Admin: 02/08/17 09:46 Dose: 325 mg Docusate Sodium (Colace) 100 mg PO BID [facility] Last Admin: 02/08/17 11:18 Dose: 100 mg Fludrocortisone Acetate (Florinef) 0.1 mg PO DAILY [facility] Last Admin: 02/08/17 09:47 Dose: 0.1 mg Furosemide (Lasix) 40 mg PO DAILY [facility] Last Admin: 02/08/17 09:47 Dose: 40 mg Heparin Sodium (Porcine) (Heparin) 5,000 units SC Q12 [facility] PRN Reason: Protocol Last Admin: 02/08/17 09:48 Dose: 5,000 units Metoprolol Tartrate (Lopressor) 25 mg PO DAILY [facility] Last Admin: 09/13/17 09:47 Dose: 25 mg Pantoprazole Sodium (Protonix Inj) 40 mg IVP DAILY [facility] Last Admin: 02/08/17 09:48 Dose: 40 mg Polyethylene Glycol (Miralax) 17 gm PO DAILY [facility] Last Admin: 02/08/17 11:18 Dose: 17 gm Potassium Chloride (Klor-Con 10) 10 meq PO DAILY [facility] Last Admin: 02/08/17 09:46 Dose: 10 meq Results - Vital Signs Recent Vital Signs: Last Vital Signs Temp 97.7 F 02/08/17 12:00 Pulse 111 H 02/08/17 12:00 Resp 20 02/08/17 12:00 BP 122/86 02/08/17 12:00 Pulse Ox 99 02/08/17 06:00 - Labs Result Diagrams: 02/07/17 19:22 02/08/17 05:30 Labs: Laboratory Results - last 24 hr 02/08/17 02/08/17 02/08/17 05:30 07:13 11:06 Sodium 140 Potassium 4.3 Chloride 104 Carbon Dioxide 27 Anion Gap 13 BUN 14 Creatinine 1.2 Est GFR ( Amer) > 60 Est GFR (Non-Af Amer) 60 POC Glucose (mg/dL) 96 100 Random Glucose 89 Calcium 9.3 Total Bilirubin 0.7 AST 37 ALT 40 Alkaline Phosphatase 48 Total Protein 6.7 Albumin 3.5 Globulin 3.3 Albumin/Globulin Ratio 1.1 Triglycerides Cholesterol LDL Cholesterol Direct HDL Cholesterol TSH 3rd Generation 02/08/17 02/08/17 11:30 11:30 Sodium Potassium Chloride Carbon Dioxide Anion Gap BUN Creatinine Est GFR ( Amer) Est GFR (Non-Af Amer) POC Glucose (mg/dL) Random Glucose Calcium Total Bilirubin AST ALT Alkaline Phosphatase Total Protein Albumin Globulin Albumin/Globulin Ratio Triglycerides 62 Cholesterol 127 L LDL Cholesterol Direct 57 HDL Cholesterol 47 TSH 3rd Generation 1.77 Attending/Attestation - Attestation I have personally seen and examined this patient.: Yes I have fully participated in the care of the patient.: Yes I have reviewed all pertinent clinical information: Yes
--- NOTE | 2017-02-08 20:16 | MRI ---
EXAM: MR Head Without Intravenous Contrast EXAM DATE/TIME: 02/08/2017 11:17 AM CLINICAL HISTORY: The patient age is 71 years old and is male; Signs and symptoms; Other: CVA Facility exam id and description: Mri br s brain without contrast TECHNIQUE: Magnetic resonance images of the head/brain without intravenous contrast in multiple planes. COMPARISON: CT - ANGIOGRAPHY HEAD 02/07/2017 8:13:27 PM FINDINGS: Artifacts: Motion artifact limits this study. Brain: There is an area of restricted diffusion within the left frontal cortex and extending to the insular cortex. This is consistent with acute infarct. Additional foci of restricted diffusion are identified within the left frontal, parietal, and temporal lobes, also consistent with acute ischemic change in the left MCA territory. There is prominence of the ventricles and sulci, compatible with atrophy. There are scattered additional foci of high FLAIR signal intensity within the cerebral white matter. There is no mass effect or restricted diffusion associated with these foci. In a patient this age, this likely represents chronic small vessel ischemic disease. A few small foci of magnetic susceptibility are identified within the left frontal white matter, without abnormal signal intensity on the FLAIR sequence. This likely represents foci of hemosiderin or chronic hemorrhage. Additional foci of T2 hyperintensity are seen within the basal ganglia, bilateral thalami, and brainstem, consistent with chronic ischemic changes. Mild FLAIR hyperintense gliosis is identified within the right frontal cortex, consistent with chronic ischemic change. Ventricles: There is ventriculomegaly. Normal pressure hydrocephalus cannot be excluded. Bones/joints: No acute abnormality. Sinuses: No acute sinusitis. Mastoid air cells: Mild mucosal thickening of the left mastoid air cells. Orbits: Evaluation limited by motion artifact. Internal carotid arteries: There is loss of the normal flow void within the left internal carotid artery, concerning for hemodynamically significant decreased blood flow or occlusion. IMPRESSION: 1. There is an area of restricted diffusion within the left frontal cortex and extending to the insular cortex. This is consistent with acute infarct. Additional foci of restricted diffusion are identified within the left frontal, parietal, and temporal lobes, also consistent with acute ischemic change in the left MCA territory. 2. Atrophy. 3. There are scattered additional foci of high FLAIR signal intensity within the cerebral white matter. In a patient this age, this likely represents chronic small vessel ischemic disease. 4. There is ventriculomegaly. Normal pressure hydrocephalus cannot be excluded. 5. There is loss of the normal flow void within the left internal carotid artery, concerning for hemodynamically significant decreased blood flow or occlusion. This correlates with the findings on the previous CTA head. 6. Additional chronic ischemic changes are noted above. 7. A few small foci of magnetic susceptibility are identified within the left frontal white matter. This likely represents foci of hemosiderin or chronic hemorrhage.
[2017-02-09 07:30] LABS: BASO # 0.01 K/mm3 (0.0-2.0); BASO % 0.2 % (0.0-3.0); EOS # 0.2 (0.0-0.7); GRAN # 3.3 (1.4-6.5); HEMATOCRIT 38.5 % (42.0-52.0); LYMPH # 1.1 (1.2-3.4); MEAN CELL VOLUME 86.3 fl (80.0-105.0); MEAN CORPUSCULAR HEMOGLOBIN 27.6 pg (25.0-35.0); MEAN CORPUSCULAR HGB CONC 31.9 g/dl (31.0-37.0); MEAN PLATELET VOLUME 9.1 fl (7.0-11.0); MONO # 0.6 (0.1-0.6); MONO % 11.8 % (1.0-6.0); RED CELL DISTRIBUTION WIDTH 14.8 % (11.5-14.5); WHITE BLOOD COUNT 5.2 10^3/ul (4.5-11.0)
[2017-02-09 07:40] LABS: ALB/GLOB RATIO 1.1 (1.1-1.8); ALKALINE PHOSPHATASE 55 U/L (38-126); ALT/SGPT 42 U/L (7-56); AST/SGOT 42 U/L (17-59); BILIRUBIN,TOTAL 0.8 mg/dL (0.2-1.3); BLOOD UREA NITROGEN 20 mg/dL (7-21); CALCIUM 9.2 mg/dL (8.4-10.5); CARBON DIOXIDE 29 mmol/L (21-33); CHLORIDE 102 mmol/L (98-107); GFR AFRICAN-AMERICAN > 60; GLUCOSE,RANDOM 75 mg/dL (70-110); POTASSIUM 3.9 mmol/L (3.6-5.0); SODIUM 140 mmol/L (132-148)
[2017-02-09] MEDS: Potassium Chloride 10 mEq ER Tab PO SCH (12:50)
[2017-02-09] MEDS: POLYETHYLENE GLYCOL 3350 17 GM/Dose PACKET PO SCH (12:54)
--- NOTE | 2017-02-09 14:24 | CARD ---
APPROVED REPORT EXAM: Two-dimensional and M-mode echocardiogram with Doppler and color Doppler. INDICATION CVA/TIA 2D DIMENSIONS Left Atrium (2D)4.5 (1.6-4.0cm)IVSd1.3 (0.7-1.1cm) LVDd4.6 (3.9-5.9cm)PWd1.1 (0.7-1.1cm) LVDs4.1 (2.5-4.0cm)FS (%) 9.5 % LVEF (%)20.9 (>50%) M-Mode DIMENSIONS Aortic Root3.10 (2.2-3.7cm)Aortic Cusp Exc.2.10 (1.5-2.0cm) Aortic Valve AoV Peak [place]60.7cm/Dianne Peak GR.2mmHg Mitral Valve E/A ratio0.0 TDI E/Lateral E'0.0E/Medial E'0.0 Tricuspid Valve TR Peak [id number] [id number] Peak Gr.21mmHg [id number] LEFT VENTRICLE The left ventricle is normal size. There is borderline to mild concentric left ventricular hypertrophy. The systolic function is severely impaired.EF-20-25% There is mild to moderate hypokinesis in the apical anterior wall. Transmitral Doppler flow pattern is Grade II-pseudonormal filling dynamics. No left ventricle thrombus noted on this study. There is no ventricular septal defect visualized. There is no left ventricular aneurysm. There is no mass noted in the left ventricle. RIGHT VENTRICLE The right ventricle is normal size. There is normal right ventricular wall thickness. The right ventricular systolic function is normal. ATRIA The left atrium is severely dilated. The right atrium is mildly dilated. The interatrial septum is intact with no evidence for an atrial septal defect. AORTIC VALVE The aortic valve is thickened but opens well. No aortic regurgitation is present. There is no aortic valvular stenosis. There is no aortic valvular vegetation. MITRAL VALVE The mitral valve is thickened but opens well. Mitral regurgitation is mild. There is no mitral valve stenosis. There is no evidence of mitral valve prolapse. TRICUSPID VALVE The tricuspid valve leaflets are thickened , but open well. There is mild to moderate tricuspid regurgitation.RVSP-31 mmof hg. There is no tricuspid valve stenosis. There is no tricuspid valve prolapse or vegetation. PULMONIC VALVE The pulmonic valve is not well visualized. There is no pulmonic valvular regurgitation. There is no pulmonic valvular stenosis. GREAT VESSELS The aortic root is normal in size. The ascending aorta is normal in size. The pulmonary artery is normal. The IVC is normal in size and collapses >50% with inspiration. PERICARDIAL EFFUSION There is no pleural effusion. There is no pericardial effusion. <Conclusion> The left ventricle is normal size. There is borderline to mild concentric left ventricular hypertrophy. The systolic function is severely impaired.EF-20-25% Mitral regurgitation is mild. There is mild to moderate tricuspid regurgitation.RVSP-31 mmof hg. The IVC is normal in size and collapses >50% with inspiration. There is no pericardial effusion. No thrombus or vegetation Noted.
--- NOTE | 2017-02-09 17:49 | CP.PCM.PN ---
<Sam Luo - Last Filed: 02/09/17 17:45> Subjective - Date & Time of Evaluation Date of Evaluation: 02/09/17 Time of Evaluation: 09:10 - Subjective Subjective: Neurology Progress Note for Dr. Rivera Service Patient seen and examined at bedside. No acute events overnight. Mentation improved today; patient oriented to self (only), able to answer yes/no questions appropriately, following most commands appropriately. On 1:1 at time of exam. Brain MRI obtained yesterday, and read as left MCA territory infarct. Objective - Vital Signs/Intake and Output Vital Signs (last 24 hours): Temp Pulse Resp BP Pulse Ox 99 F 115 H 20 107/61 100 02/09/17 12:00 02/09/17 12:52 02/09/17 12:00 02/09/17 12:53 02/09/17 06:00 Intake and Output: 02/09/17 02/09/17 06:59 18:59 Intake Total 120 Balance 120 - Medications Medications: Current Medications Atorvastatin Calcium (Lipitor) 40 mg PO DIN [facility] Last Admin: 02/09/17 17:15 Dose: 40 mg Docusate Sodium (Colace) 100 mg PO BID [facility] Last Admin: 02/09/17 17:15 Dose: 100 mg Fludrocortisone Acetate (Florinef) 0.1 mg PO DAILY [facility] Last Admin: 02/09/17 12:51 Dose: 0.1 mg Furosemide (Lasix) 40 mg PO DAILY [facility] Last Admin: 02/09/17 12:53 Dose: 40 mg Metoprolol Tartrate (Lopressor) 25 mg PO DAILY [facility] Last Admin: 02/09/17 12:52 Dose: 25 mg Pantoprazole Sodium (Protonix Ec Tab) 40 mg PO 0600 [facility] Polyethylene Glycol (Miralax) 17 gm PO DAILY [facility] Last Admin: 02/09/17 12:54 Dose: 17 gm Potassium Chloride (Klor-Con 10) 10 meq PO DAILY [facility] Last Admin: 02/09/17 12:50 Dose: 10 meq Rivaroxaban (Xarelto) 20 mg PO DAILY [facility] PRN Reason: Protocol Last Admin: 02/09/17 17:15 Dose: 20 mg Thiamine HCl (Vitamin B1 Tab) 100 mg PO BID [facility] Last Admin: 02/09/17 17:15 Dose: 100 mg - Labs Labs: 02/09/17 06:50 02/09/17 06:50 PT 11.1 Seconds (9.9-11.8) 02/07/17 19:22 INR 1.03 (0.93-1.08) 02/07/17 19:22 APTT 23.9 Seconds (23.7-30.8) 02/07/17 19:22 - Additional Findings Additional findings: - Constitutional Appears: Non-toxic, No Acute Distress, Chronically Ill, Exam limited due to patient's poor comprehension (but improved over yesterday, easier to examine today) - Head Exam Head Exam: ATRAUMATIC, NORMAL INSPECTION, NORMOCEPHALIC - Eye Exam Eye Exam: Normal appearance. absent: Conjunctival injection, Scleral icterus Unable to examine pupils or test EOMI, patient intentionally keeping eyes closed and rolls eyes upward when eyelids pulled up by staff, avoiding direct light challenge for pupillary accommodation assessment - ENT Exam ENT Exam: Mucous Membranes Moist. absent: Mucous Membranes Dry - Neck Exam Neck exam: Positive for: Full Rom - Respiratory Exam Respiratory Exam: Decreased Breath Sounds (mildly decreased breath sounds in all [place]), Clear to Auscultation Bilateral, NORMAL BREATHING PATTERN. absent : Accessory Muscle Use, Chest Wall Tenderness, Rales, Rhonchi, Wheezes - Cardiovascular Exam Cardiovascular Exam: Tachycardia, REGULAR RHYTHM, +S1, +S2. absent: Bradycardia , Irregular Rhythm, JVD, +S4 - GI/Abdominal Exam GI & Abdominal Exam: Normal Bowel Sounds, Soft. absent: Diminished Bowel Sounds , Distended, Firm, Guarding, Hyperactive Bowel Sounds, Hypoactive Bowel Sounds, Rigid, Tenderness - Extremities Exam Extremities exam: Positive for: normal capillary refill, normal inspection, pedal pulses present. Negative for: calf tenderness, pedal edema - Neurological Exam awake and alert, oriented only to self and answering most yes/no questions appropriately Some spontaneous movements of all extremities Gross movement of extremities is intact, following some commands appropriately Muscle strength 5/5 on bilateral UE and LE, 5/5 ad taker strength No facial muscle droop, no tongue fasiculations at rest or deviation when extruded, no ataxia with upper extremity movement, no resting or intention tremors, no pronator drift - Psychiatric Exam Not grossly agitated or anxious, pleasantly demented, oriented only to self Word finding difficulties - Skin Skin Exam: Dry, Intact, Normal Color, Warm Assessment and Plan - Assessment and Plan (Free Text) Assessment: This is a 71 yo AA M with PMH of hypertension, atrial fibrillation, throat cancer, COPD, dilated cardiomyopathy, cirrhosis, and dementia who was brought to [facility] [place] for sudden onset right-sided weakness and slurred speech, ~25 minutes prior to arrival. Due to concern for stroke at time of admission, tPA was recommended and offered, but patient's daughter refused. MRI confirmed L MCA territory infarct, likely 2/2 diffuse atherosclerotic disease, and this infarct is likely a combination of ischemic and embolic. His weakness has resolved, but his dysarthria persists and is likely 2/2 to the infarct. His altered mental status is likely 2/2 underlying dementia and chronic medical conditions, may also be a component of hospital-associated delirium. Given elevated BP's at time of admission (SBP 180's), likely a hypertensive urgency component as well. Will need speech therapy and likely will need Sub-acute rehab after discharge as well. Given hx of afib and embolic stroke, would normally recommend anticoagulation, but given his deconditioning and risk of falls, will defer to cardiology to determine if anticoagulation appropriate. Will cover with ASA/Plavix/Lipitor for stroke prevention. Plan: 1) Continue ASA/Lipitor/Plavix for stroke prevention 2) Recommend Speech therapy and SB after discharge 3) Delirium precautions (frequent daytime reorientations, avoid nighttime interruptions) 4) Avoid strongly sedative medications, Xanax 0.25mg PO q12 PRN for agitation Patient seen, reviewed, and discussed with attending, Dr. Rivera. Neurologically stable at this time, will sign off. Please reconsult if patient experiences acute change in condition. <Sunil Rivera - Last Filed: 02/10/17 12:54> Objective - Vital Signs/Intake and Output Vital Signs (last 24 hours): Temp Pulse Resp BP Pulse Ox 97.9 F 76 20 136/72 99 02/10/17 06:00 02/10/17 10:05 02/10/17 06:00 02/10/17 10:07 02/10/17 06:00 - Medications Medications: Current Medications Alprazolam (Xanax) 0.25 mg PO [id number] PRN; Protocol PRN Reason: Agitation Stop: 02/16/17 18:01 Atorvastatin Calcium (Lipitor) 40 mg PO DIN [facility] Last Admin: 02/09/17 17:15 Dose: 40 mg Docusate Sodium (Colace) 100 mg PO BID [facility] Last Admin: 02/10/17 10:05 Dose: 100 mg Fludrocortisone Acetate (Florinef) 0.1 mg PO DAILY [facility] Last Admin: 02/10/17 10:06 Dose: 0.1 mg Furosemide (Lasix) 40 mg PO DAILY [facility] Last Admin: 02/10/17 10:07 Dose: 40 mg Metoprolol Tartrate (Lopressor) 25 mg PO BID [facility] Last Admin: 02/10/17 10:05 Dose: 25 mg Pantoprazole Sodium (Protonix Ec Tab) 40 mg PO 0600 [facility] Last Admin: 02/10/17 05:09 Dose: Not Given Polyethylene Glycol (Miralax) 17 gm PO DAILY [facility] Last Admin: 02/10/17 10:04 Dose: 17 gm Potassium Chloride (Klor-Con 10) 10 meq PO DAILY [facility] Last Admin: 02/10/17 10:04 Dose: 10 meq Rivaroxaban (Xarelto) 20 mg PO DAILY [facility] PRN Reason: Protocol Last Admin: 02/10/17 10:04 Dose: 20 mg Thiamine HCl (Vitamin B1 Tab) 100 mg PO BID [facility] Last Admin: 02/10/17 10:06 Dose: 100 mg - Labs Labs: 02/10/17 06:40 02/10/17 06:40 PT 11.1 Seconds (9.9-11.8) 02/07/17 19:22 INR 1.03 (0.93-1.08) 02/07/17 19:22 APTT 23.9 Seconds (23.7-30.8) 02/07/17 19:22 Attending/Attestation - Attestation I have personally seen and examined this patient.: Yes I have fully participated in the care of the patient.: Yes I have reviewed all pertinent clinical information, including history, physical exam and plan: Yes
--- NOTE | 2017-02-09 22:38 | CP.PCM.DIS ---
<PABLITO ESPINAL - Last Filed: 02/09/17 22:26> Provider - Provider Date of Admission: 02/07/17 22:06 Attending physician: Yohana Bray MD Primary care physician: NO PRIMARY CARE PROVIDER Time Spent in preparation of Discharge (in minutes): 45 Hospital Course - Lab Results Lab Results: Most Recent Lab Values WBC 5.2 10^3/ul (4.5-11.0) 02/09/17 06:50 RBC 4.46 10^6/uL (3.5-6.1) 02/09/17 06:50 Hgb 12.3 g/dL (14.0-18.0) L 02/09/17 06:50 Hct 38.5 % (42.0-52.0) L 02/09/17 06:50 MCV 86.3 fl (80.0-105.0) 02/09/17 06:50 MCH 27.6 pg (25.0-35.0) 02/09/17 06:50 MCHC 31.9 g/dl (31.0-37.0) 02/09/17 06:50 RDW 14.8 % (11.5-14.5) H 02/09/17 06:50 Plt Count 204 10^3/uL (120.0-450.0) 02/09/17 06:50 MPV 9.1 fl (7.0-11.0) 02/09/17 06:50 Gran % 63.0 % (50.0-68.0) 02/09/17 06:50 Lymph % (Auto) 21.0 % (22.0-35.0) L 02/09/17 06:50 Rankin % (Auto) 11.8 % (1.0-6.0) H 02/09/17 06:50 Eos % (Auto) 4.0 % (1.5-5.0) 02/09/17 06:50 Baso % (Auto) 0.2 % (0.0-3.0) 02/09/17 06:50 Gran # 3.30 (1.4-6.5) 02/09/17 06:50 Lymph # 1.1 (1.2-3.4) L 02/09/17 06:50 Rankin # 0.6 (0.1-0.6) 02/09/17 06:50 Eos # 0.2 (0.0-0.7) 02/09/17 06:50 Baso # 0.01 K/mm3 (0.0-2.0) 02/09/17 06:50 PT 11.1 Seconds (9.9-11.8) 02/07/17 19: INR 1.03 (0.93-1.08) 02/07/17 19:22 APTT 23.9 Seconds (23.7-30.8) 02/07/17 19:22 pO2 44 mm/Hg (30-55) 02/07/17 19:50 VBG pH 7.39 (7.32-7.43) 02/07/17 19:50 VBG pCO2 48.0 (40-60) 02/07/17 19:50 VBG HCO3 29.1 mmol/l (21-28) H 02/07/17 19:50 VBG Total CO2 30.6 mmol.L (22-28) H 02/07/17 19:50 VBG O2 Sat (Calc) 83.5 % (40-65) H 02/07/17 19:50 VBG Base Excess 3.3 mmol/L (0.0-2.0) H 02/07/17 19:50 VBG Potassium 4.3 mmol/L (3.6-5.2) 02/07/17 19:50 Sodium 138.0 mmol/L (132-148) 02/07/17 19:50 Chloride 104.0 mmol/L (98-107) 02/07/17 19:50 Glucose 107 mg/dl (75-110) 02/07/17 19:50 Lactate 1.6 mmol/L (0.7-2.1) 02/07/17 19:50 FiO2 21.0 % 02/07/17 19:50 Sodium 140 mmol/L (132-148) 02/09/17 06:50 Potassium 3.9 mmol/L (3.6-5.0) 02/09/17 06:50 Chloride 102 mmol/L (98-107) 02/09/17 06:50 Carbon Dioxide 29 mmol/L (21-33) 02/09/17 06:50 Anion Gap 13 (10-20) 02/09/17 06:50 BUN 20 mg/dL (7-21) 02/09/17 06:50 Creatinine 1.4 mg/dL (0.5-1.4) 02/09/17 06:50 Est GFR ( Amer) > 60 02/09/17 06:50 Est GFR (Non-Af Amer) 50 02/09/17 06:50 POC Glucose (mg/dL) 121 mg/dL (65-110) H 02/09/17 21:24 Random Glucose 75 mg/dL (70-110) 02/09/17 06:50 Hemoglobin A1c 5.3 % (4.2-6.5) 02/07/17 19:22 Calcium 9.2 mg/dL (8.4-10.5) 02/09/17 06:50 Total Bilirubin 0.8 mg/dL (0.2-1.3) 02/09/17 06:50 AST 42 U/L (17-59) 02/09/17 06:50 ALT 42 U/L (7-56) 02/09/17 06:50 Alkaline Phosphatase 55 U/L (38-126) 02/09/17 06:50 Troponin I 0.03 ng/mL D 02/07/17 19:22 Total Protein 7.0 g/dL (5.8-8.3) 02/09/17 06:50 Albumin 3.7 g/dL (3.0-4.8) 02/09/17 06:50 Globulin 3.4 gm/dL 02/09/17 06:50 Albumin/Globulin Ratio 1.1 (1.1-1.8) 02/09/17 06:50 Triglycerides 62 mg/dL (35-160) 02/08/17 11:30 Cholesterol 127 mg/dL (130-200) L 02/08/17 11:30 LDL Cholesterol Direct 57 mg/dL (0-129) 02/08/17 11:30 HDL Cholesterol 47 mg/dL (29-60) 02/08/17 11:30 TSH 3rd Generation 1.77 mIU/mL (0.46-4.68) 02/08/17 11:30 Venous Blood Potassium 4.3 mmol/L (3.6-5.2) 02/07/17 19:50 Blood Type O POSITIVE 02/07/17 19:22 Antibody Screen Negative 02/07/17 19:22 BBK History Checked Patient has bt 02/07/17 19:22 - Hospital Course Hospital Course: Geo Ewing is a 71 year old male with PMH of hypertension, atrial fibrillation, throat cancer, COPD, dilated cardiomyopathy, cirrhosis, and dementia, presents with complaining of sudden onset right sided weakness and slurred speech 25 minutes prior to arrival. CODE STROKE was called. Initially, unable to get a complete ROS due to mental status. No focal deficits were noted in ED. Neurology was consulted for TIA r/o CVA. Dr. Rivera spoke with pt's daughter regarding tPA but she declined. [facility]. Pt is noted to have aphasia and trouble forming sentences, likely due to baseline dementia vs CVA. No slurring of words, focal deficits, or facial asymmetry/droop were noted. CT head showed hyperdense MCA sign associated with acute ischemic change. No acute intracranial hemorrhage. There are periventricular foci of hypodensity, likely representing small vessel ischemic disease in a patient this age. Mild atrophy. There is stable ventriculomegaly. CT angio of the head showed focal areas of nonvisualized flow within the distal right vertebral artery, consistent with severe stenoses or occlusion. absence of flow within the petrous left internal carotid artery, consistent with occlusion. There is approximately 50% stenosis of the cavernous right internal carotid artery. MRI confirmed L MCA territory infarct. ASA, Lipitor and Plavix were started for stroke prevention. Echo was done and showed EF 20%, mild MR and TR, with no vegetations noted. Cardiology was consulted regarding anticoagulation due to hx Afib, and recommended dc ASA and Plavix and started Xarelto; pt was previously on Xarelto. PT eval rec home w / services; per daughter, there is strong social support at home and pt previously had aide at home. Patient was clear to d/c and on morning of d/c, he was more alert and oriented than prior days. He has no new focal deficits and is medically stable for d/c and continuing rehab. Pt prescribed Lipitor, Xarelto and thiamine and to cont home meds. - Date & Time of H&P Date of H&P: 02/07/17 Time of H&P: 23:35 Discharge Exam - Additional Findings Additional findings: - Constitutional Appears: No Acute Distress, Cachectic, Chronically Ill - Head Exam Head Exam: ATRAUMATIC, NORMAL INSPECTION - Eye Exam Eye Exam: Normal appearance, PERRL - ENT Exam ENT Exam: Mucous Membranes Moist Additional comments: L cheek is more puffed than R s/p throat CA - Neck Exam Neck Exam: Normal Inspection. absent: Lymphadenopathy, Meningismus - Respiratory Exam Respiratory Exam: Clear to Ausculation Bilateral, NORMAL BREATHING PATTERN. absent: Rales, Rhonchi, Wheezes, Respiratory Distress - Cardiovascular Exam Cardiovascular Exam: Tachycardia, REGULAR RHYTHM. absent: Gallop, JVD, Rubs, Murmur - GI/Abdominal Exam GI & Abdominal Exam: Soft, Normal Bowel Sounds. absent: Distended, Tenderness - Extremities Exam Extremities Exam: Full ROM, Normal Inspection. absent: Pedal Edema - Back Exam Back Exam: Full ROM, NORMAL INSPECTION - Neurological Exam Neurological Exam: Altered (pt follows simple commands, and is answering simple questions). absent: Motor Sensory Deficit, Oriented x3 (oriented x2 (person and place but not time)) Neuro motor strength exam: Left Upper Extremity: 5, Right Upper Extremity: 5, Left Lower Extremity: 5, Right Lower Extremity: 5 Additional comments: pt not slurring words pt is aphasic no facial drooping noted no pronator drift Discharge Plan - Discharge Medications Prescriptions: Atorvastatin [Lipitor] 40 mg PO DIN #30 tab Rivaroxaban [Xarelto] 20 mg PO DAILY #30 tab Thiamine [Vitamin B1 Tab] 100 mg PO BID #14 tab - Follow Up Plan Condition: FAIR Disposition: HOME/ ROUTINE Instructions: Transient Ischemic Attack (DC), Transient Ischemic Attack (GEN) Additional Instructions: speech therapy as an outpatient. Referrals: Mariana Fernandez MD [Staff Provider] - PCP,ELIAZAR [Primary Care Provider] - <Yohana Bray - Last Filed: 02/10/17 18:42> Provider - Provider Date of Admission: 02/07/17 22:06 Attending physician: Yohana Bray MD Primary care physician: NO PRIMARY CARE PROVIDER Hospital Course - Lab Results Lab Results: Most Recent Lab Values WBC 5.5 10^3/ul (4.5-11.0) 02/10/17 06:40 RBC 4.78 10^6/uL (3.5-6.1) 02/10/17 06:40 Hgb 13.3 g/dL (14.0-18.0) L 02/10/17 06:40 Hct 41.2 % (42.0-52.0) L 02/10/17 06:40 MCV 86.2 fl (80.0-105.0) 02/10/17 06:40 MCH 27.8 pg (25.0-35.0) 02/10/17 06:40 MCHC 32.3 g/dl (31.0-37.0) 02/10/17 06:40 RDW 14.3 % (11.5-14.5) 02/10/17 06:40 Plt Count 202 10^3/uL (120.0-450.0) 02/10/17 06:40 MPV 9.0 fl (7.0-11.0) 02/10/17 06:40 Gran % 61.5 % (50.0-68.0) 02/10/17 06:40 Lymph % (Auto) 22.3 % (22.0-35.0) 02/10/17 06:40 Rankin % (Auto) 12.0 % (1.0-6.0) H 02/10/17 06:40 Eos % (Auto) 3.8 % (1.5-5.0) 02/10/17 06:40 Baso % (Auto) 0.4 % (0.0-3.0) 02/10/17 06:40 Gran # 3.39 (1.4-6.5) 02/10/17 06:40 Lymph # 1.2 (1.2-3.4) 02/10/17 06:40 Rankin # 0.7 (0.1-0.6) H 02/10/17 06:40 Eos # 0.2 (0.0-0.7) 02/10/17 06:40 Baso # 0.02 K/mm3 (0.0-2.0) 02/10/17 06:40 PT 11.1 Seconds (9.9-11.8) 02/07/17 19:22 INR 1.03 (0.93-1.08) 02/07/17 19:22 APTT 23.9 Seconds (23.7-30.8) 02/07/17 19:22 pO2 44 mm/Hg (30-55) 02/07/17 19:50 VBG pH 7.39 (7.32-7.43) 02/07/17 19:50 VBG pCO2 48.0 (40-60) 02/07/17 19:50 VBG HCO3 29.1 mmol/l (21-28) H 02/07/17 19:50 VBG Total CO2 30.6 mmol.L (22-28) H 02/07/17 19:50 VBG O2 Sat (Calc) 83.5 % (40-65) H 02/07/17 19:50 VBG Base Excess 3.3 mmol/L (0.0-2.0) H 02/07/17 19:50 VBG Potassium 4.3 mmol/L (3.6-5.2) 02/07/17 19:50 Sodium 138.0 mmol/L (132-148) 02/07/17 19:50 Chloride 104.0 mmol/L (98-107) 02/07/17 19:50 Glucose 107 mg/dl (75-110) 02/07/17 19:50 Lactate 1.6 mmol/L (0.7-2.1) 02/07/17 19:50 FiO2 21.0 % 02/07/17 19:50 Sodium 138 mmol/L (132-148) 02/10/17 06:40 Potassium 4.6 mmol/L (3.6-5.0) 02/10/17 06:40 Chloride 98 mmol/L (95-110) 02/10/17 06:40 Carbon Dioxide 31 mmol/L (21-33) 02/10/17 06:40 Anion Gap 14 (10-20) 02/10/17 06:40 BUN 24 mg/dL (7-21) H 02/10/17 06:40 Creatinine 1.3 mg/dL (0.5-1.4) 02/10/17 06:40 Est GFR ( Amer) > 60 02/10/17 06:40 Est GFR (Non-Af Amer) 55 02/10/17 06:40 POC Glucose (mg/dL) 70 mg/dL (65-110) 02/10/17 11:39 Random Glucose 79 mg/dL (70-110) 02/10/17 06:40 Hemoglobin A1c 5.3 % (4.2-6.5) 02/07/17 19:22 Calcium 9.3 mg/dL (8.4-10.5) 02/10/17 06:40 Total Bilirubin 1.0 mg/dL (0.2-1.3) 02/10/17 06:40 AST 45 U/L (17-59) 02/10/17 06:40 ALT 43 U/L (7-56) 02/10/17 06:40 Alkaline Phosphatase 53 U/L (38-126) 02/10/17 06:40 Troponin I 0.03 ng/mL D 02/07/17 19:22 Total Protein 7.7 g/dL (5.8-8.3) 02/10/17 06:40 Albumin 3.8 g/dL (3.0-4.8) 02/10/17 06:40 Globulin 3.9 gm/dL 02/10/17 06:40 Albumin/Globulin Ratio 1.0 (1.1-1.8) L 02/10/17 06:40 Triglycerides 62 mg/dL (35-160) 02/08/17 11:30 Cholesterol 127 mg/dL (130-200) L 02/08/17 11:30 LDL Cholesterol Direct 57 mg/dL (0-129) 02/08/17 11:30 HDL Cholesterol 47 mg/dL (29-60) 02/08/17 11:30 TSH 3rd Generation 1.77 mIU/mL (0.46-4.68) 02/08/17 11:30 Venous Blood Potassium 4.3 mmol/L (3.6-5.2) 02/07/17 19:50 Blood Type O POSITIVE 02/07/17 19:22 Antibody Screen Negative 02/07/17 19:22 BBK History Checked Patient has bt 02/07/17 19:22 Attending/Attestation - Attestation I have personally seen and examined this patient.: Yes I have fully participated in the care of the patient.: Yes I have reviewed all pertinent clinical information, including history, physical exam and plan: Yes Notes (Text): I have seen and examined the patient at bedside. Agree with the above note with the following additions/ exceptions: Briefly this is 71 year old male with dementia, HTN, PAF, throat cancer, COPD, DCMP EF 20% and cirrhosis who was admitted with right sided weakness and slurred speech due to CVA. CT head was noted. TPA was refused by the patients daughter. MRI confirmed L MCA territory infarct. Patients stroke is most likely due to thromboembolism. Cardio consult appreciated. Will start patient on Xarelto. It was discussed in detail with patient's daughter. Patient passed swallow eval. PT cleared the patient for discharge. He will need speech therapy as an outpatient. Patient is in sinus rhythm and is rate controlled. Patient will follow up with Dr Fernandez as an outpatient. Dr Yohana Bray.
[2017-02-10 00:20] VITALS: RESP 20
--- NOTE | 2017-02-10 02:17 | CON ---
DATE: 02/09/2017 CONSULT SERVICE: Cardiology. REASON FOR THE CONSULTATION: History of atrial fibrillation and cardiac consult is called for anticoagulation option for atrial fibrillation in this gentleman. History of dementia. History of paroxysmal atrial fibrillation, admitted with TIA, and possible CVA. BRIEF CLINICAL HISTORY: This is 71-year-old male with past medical history significant for atrial fibrillation, multiple admissions with AFib, rapid ventricular rate, COPD, throat cancer, hypertension, dilated cardiomyopathy, cirrhosis, and dementia. In one of the chart, it is mentioned that the patient was on Xarelto at one point, but most recent medication on arrival did not mention Xarelto, who admitted at this time with altered mental status, slurring of speech, and right-sided weakness. CT of head was noticeable for MCA territory possibly infarct. The patient is demented, unable to give any history. Information obtained from the chart and from reel operator, Dr. Bray. PAST MEDICAL HISTORY: History of atrial fibrillation with the patient admitted 09/30/2015, dilated cardiomyopathy, hypertension, was on Xarelto in 2016 in the chart mentioned, and history of alcohol abuse in the past as well. SOCIAL HISTORY: Smokes and drinks and live with the daughter. As per family, the patient is very noncompliant. CURRENT MEDICATIONS: At home in the medication list mentioned, the patient is taking metoprolol 25 mg, potassium 40 once a day, Florinef 0.1 mg daily, and potassium chloride 10 mEq daily. Recent cardiac workup as follows, the patient had echocardiography done today that showed LV hypertrophy, decreased LV function, ejection fraction 20%-25%, mild mitral regurgitation, [id number] tricuspid regurgitation, and RV systolic pressure 31. No pericardial effusion. No thrombus or vegetation noted. The patient's prior echo in 2013 moderately dilated LA, RA, LV hypokinesis, dilated RV, pulmonary hypertension, RV systolic pressure at that time is 44, and ejection fraction 18%. Then, the patient had another echo on 09/30/2015, severely decreased LV function. At this admission, EKG shows normal sinus dated 02/07/2017. Prior EKG 10/01/2015, the patient's atrial fibrillation and flutter with 2:1 conduction and then again 09/28/2016, the patient atrial flutter. REVIEW OF SYSTEMS: As per HPI. PHYSICAL EXAMINATION: VITAL SIGNS: As follows; temperature afebrile, heart rate 109, and blood pressure 105/76. HEENT: PERRLA. Extraocular muscles intact. NECK: Supple. No carotid bruits or thyromegaly. CHEST: Clear to auscultation. HEART: S1 and S2 regular. ABDOMEN: Soft. EXTREMITIES: Clubbing and cyanosis negative. LABORATORY DATA: Blood workup as follows; WBC 5.8, hemoglobin 13.3, hematocrit 38.5, and platelet count 204. Sodium 140, potassium 3.9, chloride 102, carbon dioxide 29, anion gap of 13, BUN 20, and creatinine 1.4. EKG; sinus tachycardia. Most recent brain MRI done yesterday that showed area of restricted diffusion with left frontal cortex extending consistent with acute infarct and the MCA territory infarct. IMPRESSION AND PLAN: This is a 71-year-old male with past medical history significant for dilated cardiomyopathy as far as the report goes back since 2013, the patient has a dilated cardiomyopathy and atrial fibrillation, was at one point on Xarelto in 2005 and then it stopped sometime down the line possibly noncompliant. History of cirrhosis, throat cancer, probably secondary to dilated cardiomyopathy secondary to chemotherapy, dementia, admitted with middle cerebral artery territory infarct. History of chronic obstructive pulmonary disease and history of dilated cardiomyopathy more than 3 years and proximal atrial fibrillation. In view of above questions asked for the consult that what kind of anticoagulation suitable for him. Currently, the patient has been placed on aspirin and Plavix. If we calculate the patient's LEYDA score is high risk for thromboembolic complication because of atrial fibrillation. History of stroke that points to history of cardiomyopathy with severe decrease in left ventricular function, ejection fraction 20%-25% and underlying coronary artery disease and so that patient's risk score more than 3 and the patient's mandate long-term anticoagulation. The questions is if the patient's gait is very unstable, high risk of fall then aspirin and Plavix can be substituted, though it does not completely protect the patient from subsequent thromboembolic stroke or ischemic stroke and if the risk is not high then we will strongly recommend either novel anticoagulation and either Pradaxa, Eliquis, Xarelto, also compliance issues Xarelto once a day is better or conventional Coumadin with anticoagulation with the Coumadin. Try to reach the daughter, Eladia Knapp, telephone number [phone] discussed all this in length, but unfortunately could not get through, so I left the text message and try to reach again. Also discussed with Dr. Bray, attending. So, at this point, we are going to discontinue aspirin, discontinue Plavix, and start Xarelto. We will follow with you. Also, we will get lipid profile, TSH, and hemoglobin A1c. Thank you Dr. Bray for providing me the opportunity in taking care of the patient, Geo Ewing. Fatoumata Hyunh MD
[2017-02-10] MEDS ORDERED: Pantoprazole 40 mg EC Tab PO SCH (06:00)
[2017-02-10 06:30] VITALS: O2SAT 99
[2017-02-10 07:22] LABS: BASO # 0.02 K/mm3 (0.0-2.0); BASO % 0.4 % (0.0-3.0); EOS # 0.2 (0.0-0.7); EOS % 3.8 % (1.5-5.0); GRAN # 3.39 (1.4-6.5); GRAN % 61.5 % (50.0-68.0); HEMATOCRIT 41.2 % (42.0-52.0); LYMPH # 1.2 (1.2-3.4); LYMPH % 22.3 % (22.0-35.0); MEAN CELL VOLUME 86.2 fl (80.0-105.0); MEAN CORPUSCULAR HEMOGLOBIN 27.8 pg (25.0-35.0); MEAN CORPUSCULAR HGB CONC 32.3 g/dl (31.0-37.0); MONO # 0.7 (0.1-0.6); RED CELL DISTRIBUTION WIDTH 14.3 % (11.5-14.5); WHITE BLOOD COUNT 5.5 10^3/ul (4.5-11.0)
[2017-02-10 07:35] LABS: ALKALINE PHOSPHATASE 53 U/L (38-126); ALT/SGPT 43 U/L (7-56); AST/SGOT 45 U/L (17-59); BLOOD UREA NITROGEN 24 mg/dL (7-21); CALCIUM 9.3 mg/dL (8.4-10.5); CARBON DIOXIDE 31 mmol/L (21-33); CHLORIDE 98 mmol/L (95-110); GFR AFRICAN-AMERICAN > 60; GLUCOSE,RANDOM 79 mg/dL (70-110); POTASSIUM 4.6 mmol/L (3.6-5.0); SODIUM 138 mmol/L (132-148); TOTAL PROTEIN 7.7 g/dL (5.8-8.3)
[2017-02-10] MEDS: POLYETHYLENE GLYCOL 3350 17 GM/Dose PACKET PO SCH (10:04)
[2017-02-10] MEDS: Potassium Chloride 10 mEq ER Tab PO SCH (10:04)
[2017-02-10 10:08] VITALS: PULSE 76
[2017-02-10 14:47] VITALS: BP 123/92; TEMP 91.3
--- NOTE | 2017-02-10 15:35 | PN ---
DATE: REASON FOR CONSULTATION: History of atrial fibrillation, cardiomyopathy, admitted with CVA. SUBJECTIVE: Denies any chest pain, shortness of breath, any palpitation. OBJECTIVE: GENERAL: Lying flat on the bed, not in apparent distress. Examination as follows: VITAL SIGNS: Temperature afebrile, heart rate 81, blood pressure 104/69. HEENT: PERRLA. Extraocular muscles intact. NECK: Supple. No carotid bruit. No thyromegaly. CHEST: Clear to auscultation. HEART: S1 and S2 regular. ABDOMEN: Soft. EXTREMITIES: Clubbing and cyanosis negative. LABORATORY DATA: Blood workup as follows. WBC 5.5, hemoglobin 13, hematocrit 41.2, platelet count 202. Chemistry shows sodium 130, potassium 4.0, chloride 90, carbon dioxide 31, anion gap of 14, BUN 24, creatinine 1.3. IMPRESSION: A 71-year-old male with past medical history significant for paroxysmal atrial fibrillation in the past, history of cardiomyopathy dated go back to 2013. Most recent echo done yesterday that shows ejection fraction 20% to 25%, mild mitral regurgitation, [id number] tricuspid regurgitation and right ventricular systolic pressure 31, admitted with cardiovascular accident. Cardiac consult was called to assess the need of anticoagulation. The patient's high LEYDA score risk discussed with Dr. Yohana Bray, attending and also discussed with Dr. Sunil Rivera, neurologist. All are felt the patient is at high risk for subsequent future event for cerebrovascular accident because of high LEYDA score and paroxysmal atrial fibrillation. So, the patient was started on anticoagulation Xarelto, and Plavix and aspirin were discontinued because Plavix and aspirin would not substitute to prevent him from stroke as well as continuation of Plavix in addition to Xarelto will increase more risk of bleeding. So, we will continue Xarelto with increase metoprolol tartrate, he is taking once a day b.i.d. and discontinue telemetry. Discharge pending. Continue atorvastatin. Left the message to the daughter, Eladia, on above findings and options of the treatment. We will discontinue telemetry. Thank you Dr. Bray for providing me the opportunity in taking care of patient, Geo Ewing. Fatoumata Huynh MD [facility] # [id number]
--- NOTE | 2017-02-10 17:43 | CP.PCM.PN ---
<PABLITO THAKKAR - Last Filed: 02/10/17 17:38> Subjective - Date & Time of Evaluation Date of Evaluation: 02/10/17 Time of Evaluation: 09:00 - Subjective Subjective: pt was seen and examined. sitting on the chair. no complaints and is more alert. denies fever, chills, cp, sob. Ready to d/c. Per nurse, getting picked up today bt daughter Objective - Vital Signs/Intake and Output Vital Signs (last 24 hours): Temp Pulse Resp BP Pulse Ox 91.3 F L 76 20 123/92 H 99 02/10/17 12:00 02/10/17 10:05 02/10/17 06:00 02/10/17 12:00 02/10/17 06:00 - Medications Medications: Current Medications Alprazolam (Xanax) 0.25 mg PO [id number] PRN; Protocol PRN Reason: Agitation Stop: 02/16/17 18:01 Atorvastatin Calcium (Lipitor) 40 mg PO DIN [facility] Last Admin: 02/09/17 17:15 Dose: 40 mg Docusate Sodium (Colace) 100 mg PO BID [facility] Last Admin: 02/10/17 10:05 Dose: 100 mg Fludrocortisone Acetate (Florinef) 0.1 mg PO DAILY [facility] Last Admin: 02/10/17 10:06 Dose: 0.1 mg Furosemide (Lasix) 40 mg PO DAILY [facility] Last Admin: 02/10/17 10:07 Dose: 40 mg Metoprolol Tartrate (Lopressor) 25 mg PO BID [facility] Last Admin: 02/10/17 10:05 Dose: 25 mg Pantoprazole Sodium (Protonix Ec Tab) 40 mg PO 0600 [facility] Last Admin: 02/10/17 05:09 Dose: Not Given Polyethylene Glycol (Miralax) 17 gm PO DAILY [facility] Last Admin: 02/10/17 10:04 Dose: 17 gm Potassium Chloride (Klor-Con 10) 10 meq PO DAILY [facility] Last Admin: 02/10/17 10:04 Dose: 10 meq Rivaroxaban (Xarelto) 20 mg PO DAILY [facility] PRN Reason: Protocol Last Admin: 02/10/17 10:04 Dose: 20 mg Thiamine HCl (Vitamin B1 Tab) 100 mg PO BID [facility] Last Admin: 02/10/17 10:06 Dose: 100 mg - Labs Labs: 02/10/17 06:40 02/10/17 06:40 PT 11.1 Seconds (9.9-11.8) 02/07/17 19:22 INR 1.03 (0.93-1.08) 02/07/17 19:22 APTT 23.9 Seconds (23.7-30.8) 02/07/17 19:22 - Additional Findings Additional findings: - Constitutional Appears: No Acute Distress, Confused, Cachectic, Chronically Ill - Head Exam Head Exam: ATRAUMATIC, NORMAL INSPECTION - Eye Exam Eye Exam: Normal appearance, PERRL - ENT Exam ENT Exam: Mucous Membranes Moist Additional comments: L cheek is more puffed than R s/p throat CA - Neck Exam Neck Exam: Normal Inspection. absent: Lymphadenopathy, Meningismus - Respiratory Exam Respiratory Exam: Clear to Ausculation Bilateral, NORMAL BREATHING PATTERN. absent: Rales, Rhonchi, Wheezes, Respiratory Distress - Cardiovascular Exam Cardiovascular Exam: Tachycardia, REGULAR RHYTHM. absent: Gallop, JVD, Rubs, Murmur - GI/Abdominal Exam GI & Abdominal Exam: Soft, Normal Bowel Sounds. absent: Distended, Tenderness - Extremities Exam Extremities Exam: Full ROM, Normal Inspection. absent: Pedal Edema - Back Exam Back Exam: Full ROM, NORMAL INSPECTION - Neurological Exam Neurological Exam: Altered (pt follows simple commands, and verbalizing words). absent: Motor Sensory Deficit, Oriented x3 (oriented x1 (responds to name, but unable to verbalize other answers)) Neuro motor strength exam: Left Upper Extremity: 5, Right Upper Extremity: 5, Left Lower Extremity: 5, Right Lower Extremity: 5 Additional comments: pt not slurring words pt is aphasic no facial drooping noted - Skin Skin Exam: Normal Color, Warm Assessment and Plan - Assessment and Plan (Free Text) Assessment: 71 year old male with PMH of hypertension, atrial fibrillation, throat cancer, COPD, dilated cardiomyopathy, cirrhosis, and baseline dementia, presents with sudden onset "right sided weakness and slurred speech 25 minutes prior to arrival." Code stroke was called; NIHSS in ED was 10. TIA likely because pt currently shows no focal deficits or facial palsy. Awake and oriented, follows commands and able to ambulate. D/c order yesterday but pt did not go home due to social issues. will be picked up by daughter today. Plan: - refer to yesterday's d/c summary for details of discharge. Patient was seen, evaluated and discussed with attending, Dr. Asa Thakkar PGY1 <Yohana Bray - Last Filed: 02/10/17 18:43> Objective - Vital Signs/Intake and Output Vital Signs (last 24 hours): Temp Pulse Resp BP Pulse Ox 91.3 F L 76 20 123/92 H 99 02/10/17 12:00 02/10/17 10:05 02/10/17 06:00 02/10/17 12:00 02/10/17 06:00 - Labs Labs: 02/10/17 06:40 02/10/17 06:40 PT 11.1 Seconds (9.9-11.8) 02/07/17 19:22 INR 1.03 (0.93-1.08) 02/07/17 19:22 APTT 23.9 Seconds (23.7-30.8) 02/07/17 19:22 Attending/Attestation - Attestation I have personally seen and examined this patient.: Yes I have fully participated in the care of the patient.: Yes I have reviewed all pertinent clinical information, including history, physical exam and plan: Yes Notes (Text): I have seen and examined the patient at bedside. Agree with the above note with the following additions/ exceptions: Briefly this is 71 year old male with dementia, HTN, PAF, throat cancer, COPD, DCMP EF 20% and cirrhosis who was admitted with right sided weakness and slurred speech due to CVA. CT head was noted. TPA was refused by the patients daughter. MRI confirmed L MCA territory infarct. Patients stroke is most likely due to thromboembolism. Cardio consult appreciated. Will start patient on Xarelto. It was discussed in detail with patient's daughter. Patient passed swallow eval. PT cleared the patient for discharge. He will need speech therapy as an outpatient. Patient is in sinus rhythm and is rate controlled. He was supposed to go home yesterday but was unable to due to social reasons. Patient will follow up with Dr Fernandez as an outpatient. Dr Yohana Bray.
== END 2017-02-10 17:42 | disposition home or self-care (01) | DRG 65 ==
LOC: ED 19:18 → ERH 22:06 → 2RNO 02-08 00:11
PROVIDERS: ADMIT Hospitalist; ATTEND Hospitalist
DX: I63.412 Cerebral infarction due to embolism of left middle cerebral artery (principal); I42.0 Dilated cardiomyopathy; I16.0 Hypertensive urgency; F05 Delirium due to known physiological condition; I48.0 Paroxysmal atrial fibrillation; F03.90 Unspecified dementia, unspecified severity, without behavioral disturbance, psychotic disturbance, mood disturbance, and anxiety; K74.60 Unspecified cirrhosis of liver; J44.9 Chronic obstructive pulmonary disease, unspecified; R47.01 Aphasia; R47.1 Dysarthria and anarthria; R29.710 NIHSS score 10; Z85.819 Personal history of malignant neoplasm of unspecified site of lip, oral cavity, and pharynx; Z87.891 Personal history of nicotine dependence

== ENCOUNTER 2017-07-28 08:59 | Inpatient (IN) | payer MEDICARE, OTHER ==
[2017-07-28 08:59] VITALS: PULSE 75
[2017-07-28] MEDS: Sodium Chloride 0.9% 1,000 ML IV SCH ×2 (09:35→19:59)
--- NOTE | 2017-07-28 09:36 | ED PDOC ---
Arrival/HPI - General Chief Complaint: Weakness/Neurological Deficit Time Seen by Provider: 07/28/17 09:18 Historian: Patient, Other (daughter) - History of Present Illness Narrative History of Present Illness (Text): 07/28/17 09:20 A 71 year old male, whose past medical history includes A fib on Xarelto, hypertension, COPD, throat cancer, cirrhosis, Dementia and TIA with right sided weakness, 01/2017, was brought in by EMS to the emergency department for evaluation of left sided weakness witnessed at 08:00 this morning. Patient's daughter stated patient was last normal at 23:00 last night. This is the last time well. She found patient laying in bed, slanted, this morning with slurred speech. Reports patient was unable to move L arms and legs. Patient's daughter states patient's right sided function came back in less than a day, no permanent deficits from last TIA. Patient denies any fever, cough, dyspnea, vomiting, or other complaints at this time. Symptom Onset: Sudden Symptom Course: Unchanged Activities at Onset: Rest Context: Home Past Medical History - Provider Review Nursing Documentation Reviewed: Yes - Infectious Disease Hx of Infectious Diseases: None - Cardiac Hx Cardiac Disorders: Yes (cardiomyopathy) Hx Hypertension: Yes - Pulmonary Other/Comment: Throat CA 15 years ago - Neurological Hx Dementia: Yes - HEENT Hx HEENT Disorder: No - Renal Hx Renal Disorder: No - Endocrine/Metabolic Hx Endocrine Disorders: No - Hematological/Oncological Hx Anemia: Yes Hx Cancer: Yes (throat/lung) - Integumentary Other/Comment: multiple ble skin discolorations, laceration above left eyelid - Musculoskeletal/Rheumatological Hx Falls: Yes - Gastrointestinal Hx Liver Failure: Yes (cirrhosis) - Psychiatric Hx Depression: Yes Hx Substance Use: No - Surgical History Hx Inguinal Hernia Repair: Yes (right) - Anesthesia Hx Anesthesia Reactions: No Hx Malignant Hyperthermia: No - Suicidal Assessment Feels Threatened In Home Enviroment: No Family/Social History - Physician Review Nursing Documentation Reviewed: Yes Family/Social History: No Known Family HX Smoking Status: Former Smoker Hx Alcohol Use: No Hx Substance Use: No Allergies/Home Meds Allergies/Adverse Reactions: Allergies No Known Allergies Allergy (Verified 07/28/17 09:29) Review of Systems - Physician Review All systems were reviewed & negative as marked: Yes - Review of Systems Constitutional: absent: Fevers Respiratory: absent: SOB Physical Exam - Physical Exam Narrative Physical Exam (Text): 07/28/17 09:38 Constitutional: No acute distress. Head: Normocephalic. Atraumatic. Eyes: Rightward gaze ENT: Moist mucous membranes. Neck: Supple. Cardiovascular: Borderline tachycardic. Chest: No tenderness. Respiratory: Clear to auscultation bilaterally. GI: Soft. Nontender. Nondistended. Back: No CVA tenderness. Musculoskeletal: No tenderness or swelling of extremities. Skin: No rash. Neurologic: Alert. Moves all extremities (patient's daughter at bedside states he could not do just an hour prior at home.) Vital Signs Reviewed: Yes Vital Signs Pulse Resp BP Pulse Ox 07/28/17 10:46 109 H 18 172/112 H 96 Appearance: Positive for: Comfortable Pain Distress: None Finger Stick Blood Glucose: 94 Medical Decision Making ED Course and Treatment: 07/28/17 09:20 Impression: A 71 year old male with left sided weakness and slurred speech. Plan: -- EKG -- chest xray -- CTA head/neck -- CT head -- labs -- IV fluids -- Reassess and disposition Prior Visits: Notes and results from previous visits were reviewed. Patient was last seen in the emergency department on 02/07/17 for evaluation of right sided weakness and slurred speech. Progress Notes: 07/28/17 09:23 Code stroke called. 07/28/17 09:55 CT HEAD WITHOUT CONTRAST Creator : Daniel Woody MD FINDINGS: HEMORRHAGE: No intracranial hemorrhage. BRAIN: No mass effect or edema. There is encephalomalacia in the left frontal lobe which corresponds to the acute infarct seen on the previous MRI. There are no acute intracranial findings. VENTRICLES: Unremarkable. No hydrocephalus. CALVARIUM: Unremarkable. PARANASAL SINUSES: Unremarkable as visualized. No significant inflammatory changes. MASTOID AIR CELLS: Unremarkable as visualized. No inflammatory changes. OTHER FINDINGS: Dr. Marcelino was called at 9:48 a.m. IMPRESSION: No acute intracranial findings. 07/28/17 10:11 chest xray- Creator : Mariah Webb MD IMPRESSION: Right lower lobe atelectasis/pneumonia. Mild congestive heart failure with bilateral pleural effusions, larger on the right. 07/28/17 10:11 EKG: Ordered, reviewed, and independently interpreted the EKG. Rate : 110 BPM Rhythm : NSR Interpretation : No ST elevations, ST depression v6 07/28/17 11:55 CT Angiography of the neck with contrast Creator : Daniel Woody MD FINDINGS: RIGHT CAROTID ARTERIES: Common Carotid Artery: Normal. Carotid Bifurcation: Calcified plaque is seen in the carotid bifurcation without significant stenosis. Internal Carotid Artery:Normal. External Carotid Artery (proximal branches): Normal. LEFT CAROTID ARTERIES: Common Carotid Artery: Normal. Carotid Bifurcation: There is complete occlusion of the internal carotid Internal Carotid Artery:Complete occlusion External Carotid Artery (proximal branches): Normal. VERTEBRAL ARTERIES: Right Vertebral Artery: Normal. Left Vertebral Artery: Normal. IMPRESSION: Complete occlusion of the left internal carotid CT Angiography of the Brain IMPRESSION: Occlusion of the left internal carotid. Occlusion found on CTA chronic and consistent with prior presentation, not today 's. Dr. Pak recommends allow permissive HTN, will bolus [address] Fernandez accepts patient to her service. ASA not administered, on Xarelto. - Lab Interpretations Lab Results: 07/28/17 09:50 07/28/17 09:50 Lab Results 07/28/17 09:50: Blood Type O POSITIVE, Antibody Screen Negative, BBK History Checked Patient has bt 07/28/17 09:50: Sodium 141, Potassium 4.7, Chloride 106, Carbon Dioxide 24, Anion Gap 16, BUN 15, Creatinine 1.3, Est GFR ( Amer) > 60, Est GFR (Non- Af Amer) 55, Random Glucose 105, Calcium 9.7, Total Bilirubin 0.9, AST 43, ALT 40, Alkaline Phosphatase 59, Troponin I < 0.01 D, Total Protein 7.9, Albumin 4.1, Globulin 3.8, Albumin/Globulin Ratio 1.1, Triglycerides 85, Cholesterol 121 L, LDL Cholesterol Direct 47, HDL Cholesterol 54 07/28/17 09:50: PT 12.7 H, INR 1.10 H, APTT 27.3 07/28/17 09:50: WBC 6.9 D, RBC 4.69, Hgb 13.2 L, Hct 41.2 L, MCV 87.8, MCH 28.1 , MCHC 32.0, RDW 14.4, Plt Count 177, MPV 8.9, Gran % 85.5 H, Lymph % (Auto) 9.0 L, [place] % (Auto) 4.8, Eos % (Auto) 0.6 L, Baso % (Auto) 0.1, Gran # 5.89, Lymph # (Auto) 0.6 L, [place] # (Auto) 0.3, Eos # (Auto) 0.0, Baso # (Auto) 0.01 I have reviewed the lab results: Yes - RAD Interpretation Radiology Orders: 07/28/17 09:29 CTA HEAD/NECK CODE STROKE [CT] Stat HEAD W/O (CODE STROKE) [CT] Stat CHEST PORTABLE [RAD] Stat - EKG Interpretation Interpreted by ED Physician: Yes Type: 12 lead EKG - Medication Orders Current Medication Orders: Sodium Chloride (Sodium Chloride 0.9%) 1,000 mls @ 100 mls/hr IV .Q10H [facility]IDE Last Admin: 07/28/17 09:35 Dose: 100 mls/hr eMAR Start Stop Document 07/28/17 09:35 SRE (Rec: 07/28/17 10:38 SRE [id number]) Intravenous Solution Start Date 07/28/17 Start Time 09:35 Sodium Chloride (Sodium Chloride 0.9%) 1,000 mls @ 100 mls/hr IV .Q10H STA Stop: 07/28/17 21:08 Last Admin: 07/28/17 12:31 Dose: NIHSS Scale ([place]) Time Performed: 09:00 - How Severe is the Stoke Baseline Level of Consciousness: 0=Alert LOC to Questions: 0=Both comments correct LOC to commands: 0=Obeys both correctly Best Gaze: 2=Forced deviation Visual: 0=No visual loss Facial: 0=Normal Motor Arm - Left: 0=No drift Motor Arm - Right: 0=No drift Motor Leg - Left: 0=No drift Motor Leg - Right: 0=No drift Limb Ataxia: 0=Absent Sensory: 0=Normal Best Language: 0=No aphasia Dysarthia: 0=Normal articulation Extinction & Inattention (Neglect): 2=Profound neglect(does not recognize own hand or orients to one side) Score: 4 Risk Level: Minor Stroke Risk rTPA Inclusion/Exclusion - Refusal of Treatment Patient Refused Treatment: No - Inclusion Criteria for Altepase Patient is 18 years or Older: Yes The Clinical Diagnosis of Ischemic Stroke That is Causing a Potentially Disabling Neurological Deficit: Yes Time of Onset is Well Established to be Less Than 270 Minute Before Treatment Would Begin: No Risk/Benefit Discussed With Patient/Family Member Present: Yes - Scribe Statement The provider has reviewed the documentation as recorded by the Fernando Wilkerson Provider Scribe Attestation: All medical record entries made by the Scribe were at my direction and personally dictated by me. I have reviewed the chart and agree that the record accurately reflects my personal performance of the history, physical exam, medical decision making, and the department course for this patient. I have also personally directed, reviewed, and agree with the discharge instructions and disposition. Disposition/Present on Arrival - Present on Arrival Any Indicators Present on Arrival: No History of DVT/PE: No History of Uncontrolled Diabetes: No Urinary Catheter: No History of Decub. Ulcer: No History Surgical Site Infection Following: None - Disposition Have Diagnosis and Disposition been Completed?: Yes Diagnosis: Ischemic stroke Disposition: HOSPITALIZED Disposition Time: 12:00 Patient Plan: Admission, Telemetry Patient Problems: Current Active Problems Problem Status Onset Ischemic stroke Acute Condition: GUARDED Referrals: Darcie Morel, [Primary Care Provider] - Follow up with primary Forms: [employer] (Chinese)
--- NOTE | 2017-07-28 09:53 | CT ---
PROCEDURE: CT HEAD WITHOUT CONTRAST. HISTORY: Code Stroke COMPARISON: MRI of the brain 02/08/2017 TECHNIQUE: Axial computed tomography images were obtained through the head/brain without intravenous contrast. Radiation dose: Total exam DLP = 925 mGy-cm. This CT exam was performed using one or more of the following dose reduction techniques: Automated exposure control, adjustment of the mA and/or kV according to patient size, and/or use of iterative reconstruction technique. FINDINGS: HEMORRHAGE: No intracranial hemorrhage. BRAIN: No mass effect or edema. There is encephalomalacia in the left frontal lobe which corresponds to the acute infarct seen on the previous MRI. There are no acute intracranial findings. VENTRICLES: Unremarkable. No hydrocephalus. CALVARIUM: Unremarkable. PARANASAL SINUSES: Unremarkable as visualized. No significant inflammatory changes. MASTOID AIR CELLS: Unremarkable as visualized. No inflammatory changes. OTHER FINDINGS: Dr. Marcelino was called at 9:48 a.m. IMPRESSION: No acute intracranial findings
[2017-07-28 10:05] LABS: BASO # 0.01 K/mm3 (0.0-2.0); BASO % 0.1 % (0.0-3.0); EOS % 0.6 % (1.5-5.0); GRAN # 5.89 (1.4-6.5); GRAN % 85.5 % (50.0-68.0); HEMOGLOBIN 13.2 g/dL (14.0-18.0); LYMPH # 0.6 (1.2-3.4); MEAN CELL VOLUME 87.8 fl (80.0-105.0); MEAN CORPUSCULAR HEMOGLOBIN 28.1 pg (25.0-35.0); MEAN PLATELET VOLUME 8.9 fl (7.0-11.0); MONO # 0.3 (0.1-0.6); MONO % 4.8 % (1.0-6.0); RBC 4.69 10^6/uL (3.5-6.1); RED CELL DISTRIBUTION WIDTH 14.4 % (11.5-14.5); WHITE BLOOD COUNT 6.9 10^3/ul (4.5-11.0)
--- NOTE | 2017-07-28 10:10 | RAD ---
HISTORY: Code Stroke COMPARISON: 02/07/2017. FINDINGS: LUNGS: The lungs are well inflated. There is moderate airspace disease in the right lower lobe. There is mild pulmonary venous congestion. PLEURA: Bilateral pleural effusions, right larger than left stop, no pneumothorax apparent. CARDIOVASCULAR: There is mild cardiomegaly. OSSEOUS STRUCTURES: No significant abnormalities. VISUALIZED UPPER ABDOMEN: Normal. OTHER FINDINGS: None. IMPRESSION: Right lower lobe atelectasis/pneumonia. Mild congestive heart failure with bilateral pleural effusions, larger on the right.
[2017-07-28 10:15] LABS: ALB/GLOB RATIO 1.1 (1.1-1.8); ALBUMIN 4.1 g/dL (3.0-4.8); ALT/SGPT 40 U/L (7-56); AST/SGOT 43 U/L (17-59); BLOOD UREA NITROGEN 15 mg/dL (7-21); CALCIUM 9.7 mg/dL (8.4-10.5); GFR AFRICAN-AMERICAN > 60; GFR NON-AFRICAN AMERICAN 55; HDL CHOLESTEROL 54 mg/dL (29-60); INR 1.1 (0.93-1.08); PARTIAL THROMBOPLASTIN TIME 27.3 Seconds (25.1-36.5); PROTHROMBIN TIME 12.7 SECONDS (9.4-12.5)
[2017-07-28 10:25] LABS: TROPONIN I < 0.01 ng/mL
[2017-07-28 10:26] LABS: LDL CHOLESTEROL 47 mg/dL (0-129)
--- NOTE | 2017-07-28 11:45 | CP.PCM.CON ---
History of Present Illness - History of Present Illness History of Present Illness: Mr. Ewing is a 71-year-old man with a past medical history of A fib, hypertension, COPD, throat cancer, cirrhosis, Dementia, previous left frontal lobe infarct, on Xarelto, who was last at his baseline last night at around 11 PM. He was found this morning at 8 AM, with left side weakness that seemed to fluctuate with examination. He was brought to the ED and a stroke alert was called. CT scan of the head did not show any acute findings, but did demonstrate the chronic left frontal lobe infarct. When I saw the patient, he had a left side neglect, but not a significant amount of weakness. NIHSS=3. He was not a candidate for IV tPA due to being on Xarelto and was outside the 4.5 hour time window. Review of Systems - Review of Systems All systems: reviewed and no additional remarkable complaints except Past Patient History - Infectious Disease Hx of Infectious Diseases: None - Past Social History Smoking Status: Former Smoker - CARDIAC Hx Cardiac Disorders: Yes (cardiomyopathy) Hx Hypertension: Yes - PULMONARY Other/Comment: Throat CA 15 years ago - NEUROLOGICAL Hx Dementia: Yes - HEENT Hx HEENT Problems: No - RENAL Hx Chronic Kidney Disease: No - ENDOCRINE/METABOLIC Hx Endocrine Disorders: No - HEMATOLOGICAL/ONCOLOGICAL Hx Anemia: Yes Hx Cancer: Yes (throat/lung) - INTEGUMENTARY Other/Comment: multiple ble skin discolorations, laceration above left eyelid - MUSCULOSKELETAL/RHEUMATOLOGICAL Hx Falls: Yes - GASTROINTESTINAL Hx Liver Failure: Yes (cirrhosis) - PSYCHIATRIC Hx Depression: Yes Hx Substance Use: No - SURGICAL HISTORY Hx Herniorrhaphy: Yes - ANESTHESIA Hx Anesthesia Reactions: No Hx Malignant Hyperthermia: No Meds Allergies/Adverse Reactions: Allergies Allergy/AdvReac Type Severity Reaction Status Date / Time No Known Allergies Allergy Verified 07/28/17 09:29 - Medications Medications: Current Medications Sodium Chloride (Sodium Chloride 0.9%) 1,000 mls @ 100 mls/hr IV .Q10H [facility] Last Admin: 07/28/17 09:35 Dose: 100 mls/hr Sodium Chloride (Sodium Chloride 0.9%) 1,000 mls @ 100 mls/hr IV .Q10H STA Stop: 07/28/17 21:08 Physical Exam - Neurological Exam Additional comments: Awake, alert and oriented to person and place, not time. He had a right gaze preference and left side neglect. Strength was relatively symmetrical, but he had a pronator drift of the left arm. Reflexes were brisk throughout. Plantar response was upgoing on the right. Gait was not assessed. NIHSS = 4 Results - Vital Signs Recent Vital Signs: Last Vital Signs Temp Pulse 109 H 07/28/17 10:46 Resp 18 07/28/17 10:46 BP 172/112 H 07/28/17 10:46 Pulse Ox 96 07/28/17 10:46 - Labs Result Diagrams: 07/28/17 09:50 07/28/17 09:50 Labs: Laboratory Results - last 24 hr 07/28/17 07/28/17 07/28/17 09:50 09:50 09:50 WBC 6.9 D RBC 4.69 Hgb 13.2 L Hct 41.2 L MCV 87.8 MCH 28.1 MCHC 32.0 RDW 14.4 Plt Count 177 MPV 8.9 Gran % 85.5 H Lymph % (Auto) 9.0 L [place] % (Auto) 4.8 Eos % (Auto) 0.6 L Baso % (Auto) 0.1 Gran # 5.89 Lymph # (Auto) 0.6 L [place] # (Auto) 0.3 Eos # (Auto) 0.0 Baso # (Auto) 0.01 PT 12.7 H INR 1.10 H APTT 27.3 Sodium 141 Potassium 4.7 Chloride 106 Carbon Dioxide 24 Anion Gap 16 BUN 15 Creatinine 1.3 Est GFR ( Amer) > 60 Est GFR (Non-Af Amer) 55 Random Glucose 105 Calcium 9.7 Total Bilirubin 0.9 AST 43 ALT 40 Alkaline Phosphatase 59 Troponin I < 0.01 D Total Protein 7.9 Albumin 4.1 Globulin 3.8 Albumin/Globulin Ratio 1.1 Triglycerides 85 Cholesterol 121 L LDL Cholesterol Direct 47 HDL Cholesterol 54 Blood Type Antibody Screen BBK History Checked 07/28/17 09:50 WBC RBC Hgb Hct MCV MCH MCHC RDW Plt Count MPV Gran % Lymph % (Auto) [place] % (Auto) Eos % (Auto) Baso % (Auto) Gran # Lymph # (Auto) [place] # (Auto) Eos # (Auto) Baso # (Auto) PT INR APTT Sodium Potassium Chloride Carbon Dioxide Anion Gap BUN Creatinine Est GFR ( Amer) Est GFR (Non-Af Amer) Random Glucose Calcium Total Bilirubin AST ALT Alkaline Phosphatase Troponin I Total Protein Albumin Globulin Albumin/Globulin Ratio Triglycerides Cholesterol LDL Cholesterol Direct HDL Cholesterol Blood Type O POSITIVE Antibody Screen Negative BBK History Checked Patient has bt Assessment & Plan (1) Ischemic stroke Assessment and Plan: Symptoms are of acute onset and not in the same territory of the previous known stroke. I recommend the followin. Telemetry 2. STAT CTA of the head/neck 3. MRI of the brain without contrast, when logistically possible 4. Echocardiogram with bubble study 5. Continue Xarelto 6. Fluids with NS at 100 mL/hr 7. Permissive HTN (only treat BP that is higher than 220/110 mm Hg) 8. PT/OT eval and treat 9. Check HbA1c, lipid panel, B12, folate, TSH/T3/T4, Vitamin D levels. 10. Statin to maintain LDL< 70 mg/dL 11. Case management consult. Thank you for this consultation. Status: Acute Priority: High
--- NOTE | 2017-07-28 11:52 | CT ---
PROCEDURE: CT Angiography of the neck with contrast HISTORY: code stroke COMPARISON: None available. TECHNIQUE: Contiguous axial images of the neck were obtained from the level of the skull-base to the superior mediastinum in the arteriographic phase of enhancement. Coronal and sagittal reformats or also generated. IV contrast dose: 150 cc of Omni 350 Radiation Dose - DLP: 459 mGy-cm This CT exam was performed using one or more of the following dose reduction techniques: Automated exposure control, adjustment of the mA and/or kV according to patient size, and/or use of iterative reconstruction technique. FINDINGS: RIGHT CAROTID ARTERIES: Common Carotid Artery: Normal. Carotid Bifurcation: Calcified plaque is seen in the carotid bifurcation without significant stenosis. Internal Carotid Artery:Normal. External Carotid Artery (proximal branches): Normal. LEFT CAROTID ARTERIES: Common Carotid Artery: Normal. Carotid Bifurcation: There is complete occlusion of the internal carotid Internal Carotid Artery:Complete occlusion External Carotid Artery (proximal branches): Normal. VERTEBRAL ARTERIES: Right Vertebral Artery: Normal. Left Vertebral Artery: Normal. OTHER FINDINGS: None. IMPRESSION: Complete occlusion of the left internal carotid CT Angiography of the Brain. HISTORY: code stroke COMPARISON: None available. TECHNIQUE: CT angiography of the intracranial arteries was performed. Coronal and sagittal maximum intensity projection reformated images were generated. This CT exam was performed using one or more of the following dose reduction techniques: Automated exposure control, adjustment of the mA and/or kV according to patient size, and/or use of iterative reconstruction technique. FINDINGS: INTERNAL CEREBRAL ARTERIES: Occlusion of the left internal carotid ANTERIOR CEREBRAL ARTERIES: Unremarkable. A1 and A2 segments are widely patent. Smaller distal branches unremarkable, as visualized. MIDDLE CEREBRAL ARTERIES: Unremarkable. M1 and M2 segments are widely patent. Perisylvian branches grossly symmetric. POSTERIOR CIRCULATION: Basilar Artery: Unremarkable. Distal Vertebral Arteries: Unremarkable. Posterior Cerebral Arteries: Unremarkable. Posterior Inferior Cerebellar Arteries: Unremarkable. ANEURYSM/ VASCULAR MALFORMATIONS: None. OTHER FINDINGS: None. IMPRESSION: Occlusion of the left internal carotid.
[2017-07-28] MEDS: Sodium Chloride 0.9% 1,000 ML IV STA ×2 (12:31→17:31)
--- NOTE | 2017-07-28 15:31 | CARD ---
APPROVED REPORT EKG Measurement Heart [id number] <Conclusion> Sinus tachycardia with short SD Left ventricular hypertrophy with repolarization abnormality Abnormal ECG
[2017-07-28 18:21] VITALS: BMI 18.4
[2017-07-28] MEDS ORDERED: Pneumococcal 23-Valent Vaccine IM ONE (18:21)
[2017-07-28] MEDS ORDERED: Influenza Vaccine 60 mcg/0.5 mL SYR (4YR UP) IM ONE (18:21)
[2017-07-29] MEDS: Sodium Chloride 0.9% 1,000 ML IV SCH ×3 (02:50→12:39)
[2017-07-29] MEDS ORDERED: cefTRIAXone 1 gm 1 GM/100 ML BAG IVPB SCH (03:00)
--- NOTE | 2017-07-29 04:56 | CP.PCM.PN ---
Subjective - Date & Time of Evaluation Date of Evaluation: 07/29/17 Time of Evaluation: 03:00 - Subjective Subjective: called by nurse pt has temp of 101.pt is admitted yesterday , pt has multiple medical problems including throat cancer cirrhosis of liver htn copd .pt had chest x-ray showed rt lower lobe infiltrate.wbc was nl. Objective - Vital Signs/Intake and Output Vital Signs (last 24 hours): Temp Pulse Resp BP Pulse Ox 101.6 F H 118 H 18 136/81 96 07/29/17 02:10 07/29/17 02:10 07/29/17 02:10 07/28/17 23:33 07/28/17 23:33 - Medications Medications: Current Medications Acetaminophen (Tylenol 650 Mg Supp) 650 mg RC Q4H PRN PRN Reason: Fever >100.4 F Last Admin: 07/29/17 02:38 Dose: 650 mg Sodium Chloride (Sodium Chloride 0.9%) 1,000 mls @ 100 mls/hr IV .Q10H HEIDE Last Admin: 07/29/17 02:50 Dose: 100 mls/hr Ceftriaxone Sodium (Rocephin 1 Gram Ivpb) 1 gm in 100 mls @ 100 mls/hr IVPB DAILY HEIDE PRN Reason: Protocol Last Admin: 07/29/17 02:38 Dose: 100 mls/hr - Labs Labs: PT 12.7 SECONDS (9.4-12.5) H 07/28/17 09:50 INR 1.10 (0.93-1.08) H 07/28/17 09:50 APTT 27.3 Seconds (25.1-36.5) 07/28/17 09:50 - Constitutional Appears: No Acute Distress - Head Exam Head Exam: NORMOCEPHALIC - Eye Exam Eye Exam: PERRL - ENT Exam ENT Exam: Mucous Membranes Moist - Neck Exam Neck Exam: Normal Inspection - Respiratory Exam Respiratory Exam: NORMAL BREATHING PATTERN - Cardiovascular Exam Cardiovascular Exam: REGULAR RHYTHM, +S1, +S2 - GI/Abdominal Exam GI & Abdominal Exam: Soft, Normal Bowel Sounds - Extremities Exam Extremities Exam: Normal Inspection - Neurological Exam Neurological Exam: Awake - Psychiatric Exam Psychiatric exam: Normal Affect - Skin Skin Exam: Warm Assessment and Plan - Assessment and Plan (Free Text) Assessment: fever /rt lower lobe pneumonia. throat cancer . cirrhosis of liver. Plan: blood c/s stat. tylenol suppository. rocephine 1 gm stat.
[2017-07-29] MEDS: cefTRIAXone 1 gm 1 GM/100 ML BAG IVPB SCH (15:17)
[2017-07-29 16:46] LABS: IRON 75 ug/dL (45-180)
[2017-07-29 16:55] LABS: % IRON SATURATION 26 % (20-55); TOTAL IRON BINDING CAPACITY 284 ug/dL (261-462)
--- NOTE | 2017-07-29 17:30 | CP.PCM.CON ---
History of Present Illness - History of Present Illness History of Present Illness: Chief complaint: Dysphonia/dysphagia HPI: Patient is a 71 y/o Male admitted to [facility] [place]/community health with admitting diagnosis of acute CVA. Pt has a remote hx of Head and Neck Cancer (presumed throat cancer unclear type). Due to neck findings pt appears to have had a left radical neck dissection with subsequent XRT. Pt is a poor historian. He is coughing during the time of my exam. Patient denies voice changes. Noted coughing with swallowing saliva at time of questioning and exam. Patient denies pain. Review of Systems - Constitutional Constitutional: Weakness. absent: As Per HPI, Anorexia, Chills, Daytime Sleepiness, Excessive Sweating, Fatigue, Fever, Frequent Falls, Headache, Increased Appetite, Lethargy, Malaise, Night Sweats, Snoring, Sleep Apnea, Weight Gain, Weight Loss, Other - EENT Eyes: As Per HPI Ears: As Per HPI Nose/Mouth/Throat: As Per HPI, Dysphagia. absent: Change in Voice, Throat Swelling, Tongue Swelling, Facial Pain - Cardiovascular Cardiovascular: As Per HPI - Respiratory Respiratory: As Per HPI - Gastrointestinal Gastrointestinal: As Per HPI - Genitourinary Genitourinary: As Per HPI - Musculoskeletal Musculoskeletal: As Per HPI - Integumentary Integumentary: As Per HPI - Neurological Neurological: As Per HPI, Focal Weakness - Psychiatric Psychiatric: As Per HPI - Hematologic/Lymphatic Hematologic: As Per HPI Past Patient History - Infectious Disease Hx of Infectious Diseases: None - Past Medical History & Family History Past Medical History?: Yes - Past Social History Smoking Status: Former Smoker - CARDIAC Hx Cardiac Disorders: Yes Hx Hypertension: Yes - PULMONARY Hx Chronic Obstructive Pulmonary Disease (COPD): Yes - NEUROLOGICAL HX Cerebrovascular Accident: Yes (TIA 02/12) - HEENT Hx HEENT Problems: No - RENAL Hx Chronic Kidney Disease: No - ENDOCRINE/METABOLIC Hx Endocrine Disorders: No - HEMATOLOGICAL/ONCOLOGICAL Hx Cancer: Yes (throat) - INTEGUMENTARY Hx Dermatological Problems: Yes Other/Comment: multiple ble skin discolorations, laceration above left eyelid - MUSCULOSKELETAL/RHEUMATOLOGICAL Hx Musculoskeletal Disorders: Yes Hx Falls: Yes Hx Fractures: Yes (CLOSED FX ACETABULUM) - GASTROINTESTINAL Hx Gastrointestinal Disorders: Yes (L INGUINAL HERNIA) Hx Liver Failure: Yes (cirrhosis) - PSYCHIATRIC Hx Psychophysiologic Disorder: Yes Hx Depression: Yes Hx Substance Use: No - SURGICAL HISTORY Hx Surgeries: Yes - ANESTHESIA Hx Anesthesia Reactions: No Hx Malignant Hyperthermia: No Meds Allergies/Adverse Reactions: Allergies Allergy/AdvReac Type Severity Reaction Status Date / Time No Known Allergies Allergy Verified 07/28/17 13:29 - Medications Medications: Current Medications Acetaminophen (Tylenol 650 Mg Supp) 650 mg RC Q4H PRN PRN Reason: Fever >100.4 F Last Admin: 07/29/17 06:46 Dose: 650 mg Sodium Chloride (Sodium Chloride 0.9%) 1,000 mls @ 100 mls/hr IV .Q10H HEIDE Last Admin: 07/29/17 12:39 Dose: 100 mls/hr Ceftriaxone Sodium (Rocephin 1 Gram Ivpb) 1 gm in 100 mls @ 100 mls/hr IVPB DAILY HEIDE PRN Reason: Protocol Last Admin: 07/29/17 15:17 Dose: 100 mls/hr Pantoprazole Sodium (Protonix Inj) 40 mg IVP DAILY HEIDE Physical Exam - Constitutional Appears: Well, Non-toxic, No Acute Distress, Cachectic - Head Exam Head Exam: ATRAUMATIC, NORMAL INSPECTION, NORMOCEPHALIC - Eye Exam Eye Exam: EOMI, Normal appearance, PERRL - ENT Exam ENT Exam: Normal External Ear Exam, Normal Oropharynx, TM's Normal Bilaterally Additional comments: tympanic membranes wnl bilaterally PROCEDURE: FLEXIBLE FIBEROPTIC LARYNGOSCOPY: A flexible laryngoscopy exam was performed to further assess the patient's larynx. Fiberoptic exam was indicated for patient's anatomy and gag reflex would not allow for mirror exam. The scope was inserted into the left nares and advanced to the level of the supraglottis. Findings are listed as: Oropharynx: no mass, Base of tongue wnl. no lesions Supraglottis: post radiation changes, wnl no lesions/masses Glottis: wnl, post radiation changes no lesions/masses Hypopharynx: wnl no lesions/masses, post radiation changes Glottic motion: wnl Of note patient had brian aspiration of secretions during my exam. Thick mucus was going in and out of the glottis. Pt was coughing up the mucus. - Expanded ENT Exam Expanded Mouth exam: normal external inspection, tongue elevation, tongue normal Teeth exam: dental caries Throat exam: Normal Inspection - Neck Exam Neck exam: Negative for: Lymphadenopathy Additional comments: post surgical changes (radial neck dissection left side), radiation changes noted - Respiratory Exam Respiratory Exam: NORMAL BREATHING PATTERN - Psychiatric Exam Psychiatric exam: Normal Affect, Normal Mood Results - Vital Signs Recent Vital Signs: Last Vital Signs Temp 99.2 F 07/29/17 12:00 Pulse 111 H 07/29/17 14:00 Resp 20 07/29/17 12:00 BP 147/98 H 07/29/17 12:00 Pulse Ox 98 07/29/17 06:00 - Labs Result Diagrams: 07/28/17 09:50 07/28/17 09:50 Labs: Laboratory Results - last 24 hr 07/28/17 07/29/17 07/29/17 21:19 05:20 07:11 POC Glucose (mg/dL) 120 H 115 H Iron TIBC % Saturation Triglycerides LDL Cholesterol Direct HDL Cholesterol Procalcitonin 0.05 L 07/29/17 07/29/17 07/29/17 11:04 12:30 12:30 POC Glucose (mg/dL) 101 Iron 75 TIBC 284 % Saturation 26 Triglycerides 81 LDL Cholesterol Direct 42 HDL Cholesterol 46 Procalcitonin 07/29/17 16:15 POC Glucose (mg/dL) 85 Iron TIBC % Saturation Triglycerides LDL Cholesterol Direct HDL Cholesterol Procalcitonin Assessment & Plan (1) Ischemic stroke Status: Acute Priority: High (2) Transient ischemic attack (TIA) Status: Acute (3) Oropharyngeal aspiration Status: Acute Priority: High (4) Oropharyngeal dysphagia Status: Acute Priority: High (5) Other voice and resonance disorders Status: Acute (6) Cancer of neck Status: Acute (7) Head and neck malignancy Status: Acute (8) Aspiration into lower respiratory tract Status: Acute Priority: High - Assessment and Plan (Free Text) Assessment: as above assessment Plan: Recommend NPO status- based on witnessed aspiration of secretions on fiberoptic laryngoscopy exam, Recommend GI consult for nutrition. Your medical and neurology management of the patient. Further w/o regarding cancer surveillance as out patient. Thank you for the consultation - Date & Time Date: 07/29/17 Time: 17:27
[2017-07-29] MEDS: Enoxaparin 30 mg Syringe SC SCH (18:09)
[2017-07-29 21:27] LABS: FOLATE 12.3 ng/mL
[2017-07-30] MEDS: Sodium Chloride 0.9% 1,000 ML IV SCH (00:12)
--- NOTE | 2017-07-30 03:06 | HP ---
CHIEF COMPLAINT: Weakness, neurological deficit. HISTORY OF PRESENT ILLNESS: Mr. Geo Ewing is a 71-year-old male with past medical history of atrial fibrillation, on Xarelto; hypertension; COPD; throat cancer; cirrhosis; dementia; TIA, has right-sided weakness since 01/2017, was brought in by EMS to the Emergency Department for evaluation of left-sided weakness unwitnessed at 8 a.m. At the morning of admission, patient's daughter stated patient was last normal at 2300 last night. This is the last time he was well. He found the patient lying in the bed , with slurred speech. Reports the patient was unable to move left arm and leg. Patient's daughter states that the patient's right side function came back in less than a day. No permanent deficit from last TIA. Patient denies fever, chills, nausea, vomiting, diarrhea. I saw the patient earlier in the presence of the nurse. No fever. No chills. All this happened sudden and unchanged since admission. PAST MEDICAL HISTORY: As above. He has cardiomyopathy, hypertension, throat CA 15 years ago, dementia, multiple skin discoloration, laceration above the left eyelid, cirrhosis of the liver, inguinal hernia repair of the right side. FAMILY HISTORY: Father and mother, noncontributory. HABITS: Former smoker. No alcohol. No substance abuse. ALLERGIES: THE PATIENT IS NOT ALLERGIC TO ANY MEDICATIONS. REVIEW OF SYSTEMS: The patient was seen and examined at bedside in his room. Nurse was standing at the bedside. Having weakness on the left side. Right side power is normal. Conversing, but cannot eat. Last night failed swallowing evaluation. Today again supposed to go for swallowing evaluation. No fever. No chills. No nausea, vomiting, or diarrhea. PHYSICAL EXAMINATION: VITAL SIGNS: Pulse 109, respiratory rate 18, blood pressure 172/112, pulse oximetry 96. HEENT: Head normocephalic and atraumatic. Eyes PERRLA. Extraocular muscles intact. Conjunctivae clear. Nose patent. Mucous membrane moist. NECK: Supple. No carotid bruits, JVD, or thyromegaly. CHEST: Bilaterally symmetrical. HEART: S1, S2 positive. LUNGS: Clear to auscultation. ABDOMEN: Soft. Bowel sounds present. No organomegaly. EXTREMITIES: No edema. No cyanosis. NEUROLOGIC: The patient is awake, alert. LABORATORY DATA: White blood cells 6.9, hemoglobin 13.2, hematocrit 41.2, platelets 177. Sodium 141, potassium 4.7, BUN 15, creatinine 1.3, glucose 105. ASSESSMENT AND PLAN: Mr. Geo Ewing is a 71-year-old male with anemia, came with ischemic stroke. Seen by Dr. Rishabh Pak. Discussion done with Emergency Room physician, Dr. Giorgio Marcelino. Patient with history of atrial fibrillation, hypertension, chronic obstructive pulmonary disease, throat cancer, cirrhosis of the liver, dementia, previous left frontal lobe infarction, on Xarelto. It looks like he had acute onset and not in the same territory of the previous known stroke. Patient admitted to Telemetry prior to CTA of the head and neck done. MRA of the brain without contrast when logistically possible, echocardiography with bubble study. Continue Xarelto as per Dr. Pak, blood pressure control, physical therapy/occupational therapy. We will repeat labs. Discussion done with the patient's nursing staff. Patient went for swallow evaluation yesterday in Emergency Room and failed and today second evaluation done, but still he failed. Then we called consult with Gastroenterology and ENT to make sure that his previous throat cancer is not coming back. We will repeat labs. We will follow up. Mariana Fernandez MD MTDJaclyn
[2017-07-30] MEDS: Enoxaparin 30 mg Syringe SC SCH ×2 (04:15→16:48)
[2017-07-30 06:56] LABS: HEMOGLOBIN 11.9 g/dL (14.0-18.0); MEAN CELL VOLUME 86.9 fl (80.0-105.0); MEAN CORPUSCULAR HEMOGLOBIN 27.9 pg (25.0-35.0); MEAN CORPUSCULAR HGB CONC 32.1 g/dl (31.0-37.0); MEAN PLATELET VOLUME 9.4 fl (7.0-11.0); RBC 4.27 10^6/uL (3.5-6.1); RED CELL DISTRIBUTION WIDTH 14.4 % (11.5-14.5); WHITE BLOOD COUNT 6.5 10^3/ul (4.5-11.0)
[2017-07-30 07:27] LABS: BLOOD UREA NITROGEN 19 mg/dL (7-21); CALCIUM 9.3 mg/dL (8.4-10.5); GFR AFRICAN-AMERICAN > 60; GFR NON-AFRICAN AMERICAN 60
--- NOTE | 2017-07-30 11:03 | CP.PCM.CON ---
<Talya Monreal - Last Filed: 07/30/17 11:08> History of Present Illness - History of Present Illness History of Present Illness: Initial PGY4 GI Consult Note Geo Ewing is a 71M w/ hx acute CVA, dementia, HTN, HL, Neck cancer s/p neck dissection and radiation who presented to the hospital with left sided neglect. Pt has a remote hx of Head and Neck Cancer (presumed throat cancer unclear type). Due to neck findings, pt appears to have had a left radical neck dissection with subsequent XRT. Pt is a poor historian and all information was obtained from the chart and Daughter (Danuta). As per ENT and speech eval, there was significant aspiration during evaluation. As per daughter, he has had poor oral intake at home. He was refusing to eat at times and has declined in weight. He did have a PEG after his initial stroke and neck surgery. She notes that due to his dementia, he has pulled his PEG many times in the past. Denies any abd pain. Denies any BRBPR, melena, nausea, vomiting, or hematemesis. PMHx: acute CVA, dementia, HTN, HL, Neck cancer s/p neck dissection and radiation PSHx: Neck dissection and PEG placement + removal Social hx: unknown Family Hx: unknon Endo Hx: Unknown ROS: 12-point ROS conducted, neg other than above Past Patient History - Infectious Disease Hx of Infectious Diseases: None - Past Medical History & Family History Past Medical History?: Yes - Past Social History Smoking Status: Former Smoker - CARDIAC Hx Cardiac Disorders: Yes Hx Hypertension: Yes - PULMONARY Hx Chronic Obstructive Pulmonary Disease (COPD): Yes - NEUROLOGICAL HX Cerebrovascular Accident: Yes (TIA 02/12) - HEENT Hx HEENT Problems: No - RENAL Hx Chronic Kidney Disease: No - ENDOCRINE/METABOLIC Hx Endocrine Disorders: No - HEMATOLOGICAL/ONCOLOGICAL Hx Cancer: Yes (throat) - INTEGUMENTARY Hx Dermatological Problems: Yes Other/Comment: multiple ble skin discolorations, laceration above left eyelid - MUSCULOSKELETAL/RHEUMATOLOGICAL Hx Musculoskeletal Disorders: Yes Hx Falls: Yes Hx Fractures: Yes (CLOSED FX ACETABULUM) - GASTROINTESTINAL Hx Gastrointestinal Disorders: Yes (L INGUINAL HERNIA) Hx Liver Failure: Yes (cirrhosis) - PSYCHIATRIC Hx Psychophysiologic Disorder: Yes Hx Depression: Yes Hx Substance Use: No - SURGICAL HISTORY Hx Surgeries: Yes - ANESTHESIA Hx Anesthesia Reactions: No Hx Malignant Hyperthermia: No Meds Allergies/Adverse Reactions: Allergies Allergy/AdvReac Type Severity Reaction Status Date / Time No Known Allergies Allergy Verified 07/28/17 13:29 - Medications Medications: Current Medications Acetaminophen (Tylenol 650 Mg Supp) 650 mg RC Q4H PRN PRN Reason: Fever >100.4 F Last Admin: 07/29/17 06:46 Dose: 650 mg Enoxaparin Sodium (Lovenox) 30 mg SC Q12H [facility] PRN Reason: Protocol Last Admin: 07/30/17 04:15 Dose: 30 mg Sodium Chloride (Sodium Chloride 0.9%) 1,000 mls @ 100 mls/hr IV .Q10H [facility] Last Admin: 07/30/17 00:12 Dose: 100 mls/hr Ceftriaxone Sodium (Rocephin 1 Gram Ivpb) 1 gm in 100 mls @ 100 mls/hr IVPB DAILY [facility] PRN Reason: Protocol Last Admin: 07/29/17 15:17 Dose: 100 mls/hr Doxycycline Hyclate 100 mg/ (Sodium Chloride) 100 mls @ 100 mls/hr IVPB Q12 [facility] PRN Reason: Protocol Last Admin: 07/29/17 21:04 Dose: 100 mls/hr Pantoprazole Sodium (Protonix Inj) 40 mg IVP DAILY [facility] Last Admin: 07/29/17 18:08 Dose: 40 mg Physical Exam - Constitutional Appears: Well, No Acute Distress - Head Exam Head Exam: ATRAUMATIC, NORMOCEPHALIC - Eye Exam Eye Exam: Normal appearance - ENT Exam ENT Exam: Mucous Membranes Moist, Normal Exam - Neck Exam Additional comments: old scar vertical from previous surgery - Respiratory Exam Respiratory Exam: Clear to Auscultation Bilateral, NORMAL BREATHING PATTERN. absent: Rales, Rhonchi, Wheezes, Respiratory Distress - Cardiovascular Exam Cardiovascular Exam: REGULAR RHYTHM, +S1, +S2 - GI/Abdominal Exam GI & Abdominal Exam: Normal Bowel Sounds, Soft. absent: Guarding, Hernia, Organomegaly, Rebound, Rigid - Extremities Exam Extremities exam: Negative for: joint swelling, pedal edema - Neurological Exam Neurological exam: Alert, Oriented x3 - Psychiatric Exam Psychiatric exam: Normal Affect, Normal Mood - Skin Skin Exam: Dry, Intact, Normal Color, Warm Results - Vital Signs Recent Vital Signs: Last Vital Signs Temp 99.5 F 07/30/17 06:00 Pulse 115 H 07/30/17 06:00 Resp 20 07/30/17 06:00 BP 159/101 H 07/30/17 06:00 Pulse Ox 99 07/30/17 06:00 - Labs Result Diagrams: 07/30/17 06:30 07/30/17 06:30 Labs: Laboratory Results - last 24 hr 07/29/17 07/29/17 07/29/17 05:20 11:04 12:30 WBC RBC Hgb Hct MCV MCH MCHC RDW Plt Count MPV Sodium Potassium Chloride Carbon Dioxide Anion Gap BUN Creatinine Est GFR ( Amer) Est GFR (Non-Af Amer) POC Glucose (mg/dL) 101 Random Glucose Calcium Iron TIBC % Saturation Triglycerides 81 Cholesterol 112 L LDL Cholesterol Direct 42 HDL Cholesterol 46 Vitamin B12 286 Folate 12.3 Procalcitonin 0.05 L TSH 3rd Generation 07/29/17 07/29/17 07/29/17 12:30 16:15 21:43 WBC RBC Hgb Hct MCV MCH MCHC RDW Plt Count MPV Sodium Potassium Chloride Carbon Dioxide Anion Gap BUN Creatinine Est GFR ( Amer) Est GFR (Non-Af Amer) POC Glucose (mg/dL) 85 93 Random Glucose Calcium Iron 75 TIBC 284 % Saturation 26 Triglycerides Cholesterol LDL Cholesterol Direct HDL Cholesterol Vitamin B12 Folate Procalcitonin TSH 3rd Generation 07/30/17 07/30/17 07/30/17 06:30 06:30 06:30 WBC 6.5 RBC 4.27 Hgb 11.9 L Hct 37.1 L MCV 86.9 MCH 27.9 MCHC 32.1 RDW 14.4 Plt Count 138 MPV 9.4 Sodium 140 Potassium 3.8 Chloride 107 Carbon Dioxide 23 Anion Gap 13 BUN 19 Creatinine 1.2 Est GFR ( Amer) > 60 Est GFR (Non-Af Amer) 60 POC Glucose (mg/dL) Random Glucose 88 Calcium 9.3 Iron TIBC % Saturation Triglycerides Cholesterol LDL Cholesterol Direct HDL Cholesterol Vitamin B12 Folate Procalcitonin TSH 3rd Generation 1.48 07/30/17 07:23 WBC RBC Hgb Hct MCV MCH MCHC RDW Plt Count MPV Sodium Potassium Chloride Carbon Dioxide Anion Gap BUN Creatinine Est GFR ( Amer) Est GFR (Non-Af Amer) POC Glucose (mg/dL) 78 Random Glucose Calcium Iron TIBC % Saturation Triglycerides Cholesterol LDL Cholesterol Direct HDL Cholesterol Vitamin B12 Folate Procalcitonin TSH 3rd Generation Assessment & Plan - Assessment and Plan (Free Text) Assessment: Kaylin Guardado is a 71M w. hx of neck cancer s/p radiation and resection, CVA, dementia who presents to the hospital with new CVA. GI evaluation for Dyphagia and possible PEG Dysphagia, likely 2/2 CVA Poor oral intake Dementia Plan: -keep NPO for now -spoke with daughter (Danuta), is okay wih PEG placement, but will inform us tomorrow. -may need to hold lovenox if we proceed with PEG -will need neuro clearance to hold anticoag when the times arrives -strict aspiration precautions -hx of pulling PEG in the past, will need a binder -can place an NG if needed for meds and feeds -continue rest of care as per primary team D/W Dr. El <Gene El - Last Filed: 07/30/17 11:57> Meds - Medications Medications: Current Medications Acetaminophen (Tylenol 650 Mg Supp) 650 mg RC Q4H PRN PRN Reason: Fever >100.4 F Last Admin: 07/29/17 06:46 Dose: 650 mg Enoxaparin Sodium (Lovenox) 30 mg SC Q12H [facility] PRN Reason: Protocol Last Admin: 07/30/17 04:15 Dose: 30 mg Sodium Chloride (Sodium Chloride 0.9%) 1,000 mls @ 100 mls/hr IV .Q10H [facility] Last Admin: 07/30/17 00:12 Dose: 100 mls/hr Ceftriaxone Sodium (Rocephin 1 Gram Ivpb) 1 gm in 100 mls @ 100 mls/hr IVPB DAILY [facility] PRN Reason: Protocol Last Admin: 07/29/17 15:17 Dose: 100 mls/hr Doxycycline Hyclate 100 mg/ (Sodium Chloride) 100 mls @ 100 mls/hr IVPB Q12 [facility] PRN Reason: Protocol Last Admin: 07/30/17 11:21 Dose: 100 mls/hr Pantoprazole Sodium (Protonix Inj) 40 mg IVP DAILY [facility] Last Admin: 07/30/17 11:25 Dose: 40 mg Results - Vital Signs Recent Vital Signs: Last Vital Signs Temp 99.5 F 07/30/17 06:00 Pulse 115 H 07/30/17 06:00 Resp 20 07/30/17 06:00 BP 159/101 H 07/30/17 06:00 Pulse Ox 99 07/30/17 06:00 - Labs Result Diagrams: 07/30/17 06:30 07/30/17 06:30 Labs: Laboratory Results - last 24 hr 07/29/17 07/29/17 07/29/17 05:20 12:30 12:30 WBC RBC Hgb Hct MCV MCH MCHC RDW Plt Count MPV Sodium Potassium Chloride Carbon Dioxide Anion Gap BUN Creatinine Est GFR ( Amer) Est GFR (Non-Af Amer) POC Glucose (mg/dL) Random Glucose Calcium Iron 75 TIBC 284 % Saturation 26 Triglycerides 81 Cholesterol 112 L LDL Cholesterol Direct 42 HDL Cholesterol 46 Vitamin B12 286 Folate 12.3 Procalcitonin 0.05 L TSH 3rd Generation 07/29/17 07/29/17 07/30/17 16:15 21:43 06:30 WBC 6.5 RBC 4.27 Hgb 11.9 L Hct 37.1 L MCV 86.9 MCH 27.9 MCHC 32.1 RDW 14.4 Plt Count 138 MPV 9.4 Sodium Potassium Chloride Carbon Dioxide Anion Gap BUN Creatinine Est GFR ( Amer) Est GFR (Non-Af Amer) POC Glucose (mg/dL) 85 93 Random Glucose Calcium Iron TIBC % Saturation Triglycerides Cholesterol LDL Cholesterol Direct HDL Cholesterol Vitamin B12 Folate Procalcitonin TSH 3rd Generation 07/30/17 07/30/17 07/30/17 06:30 06:30 07:23 WBC RBC Hgb Hct MCV MCH MCHC RDW Plt Count MPV Sodium 140 Potassium 3.8 Chloride 107 Carbon Dioxide 23 Anion Gap 13 BUN 19 Creatinine 1.2 Est GFR ( Amer) > 60 Est GFR (Non-Af Amer) 60 POC Glucose (mg/dL) 78 Random Glucose 88 Calcium 9.3 Iron TIBC % Saturation Triglycerides Cholesterol LDL Cholesterol Direct HDL Cholesterol Vitamin B12 Folate Procalcitonin TSH 3rd Generation 1.48 07/30/17 11:09 WBC RBC Hgb Hct MCV MCH MCHC RDW Plt Count MPV Sodium Potassium Chloride Carbon Dioxide Anion Gap BUN Creatinine Est GFR ( Amer) Est GFR (Non-Af Amer) POC Glucose (mg/dL) 86 Random Glucose Calcium Iron TIBC % Saturation Triglycerides Cholesterol LDL Cholesterol Direct HDL Cholesterol Vitamin B12 Folate Procalcitonin TSH 3rd Generation Attending/Attestation - Attestation I have personally seen and examined this patient.: Yes I have fully participated in the care of the patient.: Yes I have reviewed all pertinent clinical information: Yes Notes (Text): 07/30/17 11:56 71 year old male with h/o head and neck tumor s/p surgery/xrt, stroke, with dysphagia and aspiration related to stroke. He will likely need a PEG. Will need to obtain consent from the family.
--- NOTE | 2017-07-30 11:42 | CP.PCM.PN ---
Subjective - Date & Time of Evaluation Date of Evaluation: 07/30/17 Time of Evaluation: 11:39 - Subjective Subjective: Mr. Ewing was seen and examined at the bedside. He is alert, oriented with dysarthria. He is able to answer and follow commands. He denies any headache, dizziness, lightheadedness, nausea. He remains on NPO due to dysphagia, EENT saw the patient with suggestion of peg placement. Patient cannot swallow even his own saliva. He has left facial droop, left side hemiphlegia. There was no untoward events overnight. Objective - Vital Signs/Intake and Output Vital Signs (last 24 hours): Temp Pulse Resp BP Pulse Ox 99.5 F 115 H 20 159/101 H 99 07/30/17 06:00 07/30/17 06:00 07/30/17 06:00 07/30/17 06:00 07/30/17 06:00 Intake and Output: 07/30/17 07/30/17 06:59 18:59 Intake Total 1200 Balance 1200 - Medications Medications: Current Medications Acetaminophen (Tylenol 650 Mg Supp) 650 mg RC Q4H PRN PRN Reason: Fever >100.4 F Last Admin: 07/29/17 06:46 Dose: 650 mg Enoxaparin Sodium (Lovenox) 30 mg SC Q12H [facility] PRN Reason: Protocol Last Admin: 07/30/17 04:15 Dose: 30 mg Sodium Chloride (Sodium Chloride 0.9%) 1,000 mls @ 100 mls/hr IV .Q10H [facility] Last Admin: 07/30/17 00:12 Dose: 100 mls/hr Ceftriaxone Sodium (Rocephin 1 Gram Ivpb) 1 gm in 100 mls @ 100 mls/hr IVPB DAILY [facility] PRN Reason: Protocol Last Admin: 07/29/17 15:17 Dose: 100 mls/hr Doxycycline Hyclate 100 mg/ (Sodium Chloride) 100 mls @ 100 mls/hr IVPB Q12 [facility] PRN Reason: Protocol Last Admin: 07/30/17 11:21 Dose: 100 mls/hr Pantoprazole Sodium (Protonix Inj) 40 mg IVP DAILY [facility] Last Admin: 07/30/17 11:25 Dose: 40 mg - Labs Labs: 07/30/17 06:30 07/30/17 06:30 PT 12.7 SECONDS (9.4-12.5) H 07/28/17 09:50 INR 1.10 (0.93-1.08) H 07/28/17 09:50 APTT 27.3 Seconds (25.1-36.5) 07/28/17 09:50 - Constitutional Appears: No Acute Distress - Head Exam Head Exam: NORMAL INSPECTION - Neurological Exam Neurological Exam: Alert, Awake, Oriented x3 Neuro motor strength exam: Left Upper Extremity: 0, Right Upper Extremity: 5, Left Lower Extremity: 0, Right Lower Extremity: 4 Additional comments: He is able to follow commands, left facial droop, left side paralysis. Assessment and Plan (1) Ischemic stroke Assessment & Plan: Case discussed with Dr. Pak, continue all current medical regimen. Recommend MRI of the brain, MRA of the head and neck. Due to patient dysphagia, lovenox was ordered. No aspirin is needed at this time, patient needs anti-coagulant than antiplatelet at this time. REcommend PT, OT, and speech therapies eval and treat. Echocardiogram with bubble study. Permissive HTN (only treat BP that is higher than 220/110 mm Hg) Status: Acute
[2017-07-30] MEDS ORDERED: Gadodiamide 287 MG/ML VIAL (15ML) IV ONE (14:11)
[2017-07-30] MEDS: Dextrose 5%/0.9% NS 1,000 ML IV SCH (15:57)
[2017-07-30] MEDS: cefTRIAXone 1 gm 1 GM/100 ML BAG IVPB SCH (15:58)
[2017-07-30] MEDS ORDERED: Vancomycin 1gm in NS 250ml 1 GM/250 ML BAG IVPB STA (16:04)
--- NOTE | 2017-07-30 16:16 | MRI ---
PROCEDURE: MRI BRAIN WITH AND WITHOUT CONTRAST HISTORY: Left hemiphegia COMPARISON: 07/28/2017 CT TECHNIQUE: Multiplanar, multisequence MR images of the brain were obtained with and without intravenous contrast enhancement. FINDINGS: HEMORRHAGE: None DWI: There is a new large infarct in the right hemisphere in the distribution of the middle cerebral artery. This involves the entire frontal lobe and portions of the parietal lobe and temporal lobe. There is edema and mass effect with effacement of the sulci and a mild amount of midline shift to the left. BRAIN PARENCHYMA: There is an old infarct in the left frontal lobe. ENHANCEMENT: No abnormal intracranial enhancement. VENTRICLES: Unremarkable. No hydrocephalus. CRANIUM: Unremarkable. ORBITS: Grossly unremarkable. PARANASAL SINUSES/MASTOIDS: Clear VASCULAR SYSTEM: Skull base flow voids intact. OTHER FINDINGS: None . IMPRESSION: Acute right hemispheric infarct in the distribution of the middle cerebral artery. There is a mild amount of mass effect with cortical edema and effacement of sulci. No evidence of hemorrhage
--- NOTE | 2017-07-30 16:24 | CP.PCM.CON ---
History of Present Illness - History of Present Illness History of Present Illness: 71 year old male with PMH of HTN, COPD, atrial fibrillation, throat cancer, dementia, history of CVA of left frontal lobe, liver cirrhosis was [place] [facility] [place] was noted to have increased weakness of his left side. In the ED , he was also noted to have fevers. CXR was done which showed right lower lobe airspace disease. There is no note of rhinorrhea, no vomiting, no loss of consciousness, no diarrhea, no convulsions. ROS is limited due to the patient's dementia. Infectious Diseases consult is requested to further evaluate and manage. Review of Systems - Review of Systems Systems not reviewed;Unavailable: Dementia Past Patient History - Infectious Disease Hx of Infectious Diseases: None - Past Medical History & Family History Past Medical History?: Yes - Past Social History Smoking Status: Former Smoker - CARDIAC Hx Cardiac Disorders: Yes Hx Hypertension: Yes - PULMONARY Hx Chronic Obstructive Pulmonary Disease (COPD): Yes - NEUROLOGICAL HX Cerebrovascular Accident: Yes (TIA 02/12) - HEENT Hx HEENT Problems: No - RENAL Hx Chronic Kidney Disease: No - ENDOCRINE/METABOLIC Hx Endocrine Disorders: No - HEMATOLOGICAL/ONCOLOGICAL Hx Cancer: Yes (throat) - INTEGUMENTARY Hx Dermatological Problems: Yes Other/Comment: multiple ble skin discolorations, laceration above left eyelid - MUSCULOSKELETAL/RHEUMATOLOGICAL Hx Musculoskeletal Disorders: Yes Hx Falls: Yes Hx Fractures: Yes (CLOSED FX ACETABULUM) - GASTROINTESTINAL Hx Gastrointestinal Disorders: Yes (L INGUINAL HERNIA) Hx Liver Failure: Yes (cirrhosis) - PSYCHIATRIC Hx Psychophysiologic Disorder: Yes Hx Depression: Yes Hx Substance Use: No - SURGICAL HISTORY Hx Surgeries: Yes - ANESTHESIA Hx Anesthesia Reactions: No Hx Malignant Hyperthermia: No Meds Allergies/Adverse Reactions: Allergies Allergy/AdvReac Type Severity Reaction Status Date / Time No Known Allergies Allergy Verified 07/28/17 13:29 - Medications Medications: Current Medications Acetaminophen (Tylenol 650 Mg Supp) 650 mg RC Q4H PRN PRN Reason: Fever >100.4 F Last Admin: 07/29/17 06:46 Dose: 650 mg Enoxaparin Sodium (Lovenox) 30 mg SC Q12H [facility] PRN Reason: Protocol Sodium Chloride (Sodium Chloride 0.9%) 1,000 mls @ 100 mls/hr IV .Q10H [facility] Last Admin: 07/29/17 12:39 Dose: 100 mls/hr Ceftriaxone Sodium (Rocephin 1 Gram Ivpb) 1 gm in 100 mls @ 100 mls/hr IVPB DAILY [facility] PRN Reason: Protocol Last Admin: 07/29/17 15:17 Dose: 100 mls/hr Doxycycline Hyclate 100 mg/ (Sodium Chloride) 100 mls @ 100 mls/hr IVPB Q12 [facility] PRN Reason: Protocol Pantoprazole Sodium (Protonix Inj) 40 mg IVP DAILY [facility] Physical Exam - Constitutional Appears: Non-toxic, Chronically Ill - Head Exam Head Exam: NORMAL INSPECTION - ENT Exam ENT Exam: Mucous Membranes Moist - Neck Exam Neck exam: Negative for: Meningismus - Respiratory Exam Respiratory Exam: Decreased Breath Sounds - Cardiovascular Exam Cardiovascular Exam: +S1, +S2 - GI/Abdominal Exam GI & Abdominal Exam: Soft. absent: Tenderness Results - Vital Signs Recent Vital Signs: Last Vital Signs Temp 99.2 F 07/29/17 12:00 Pulse 111 H 07/29/17 14:00 Resp 20 07/29/17 12:00 BP 147/98 H 07/29/17 12:00 Pulse Ox 98 07/29/17 06:00 - Labs Result Diagrams: 07/30/17 06:30 07/30/17 06:30 Labs: Laboratory Results - last 24 hr 07/28/17 07/29/17 07/29/17 21:19 05:20 07:11 POC Glucose (mg/dL) 120 H 115 H Iron TIBC % Saturation Triglycerides Cholesterol LDL Cholesterol Direct HDL Cholesterol Procalcitonin 0.05 L 07/29/17 07/29/17 07/29/17 11:04 12:30 12:30 POC Glucose (mg/dL) 101 Iron 75 TIBC 284 % Saturation 26 Triglycerides 81 Cholesterol 112 L LDL Cholesterol Direct 42 HDL Cholesterol 46 Procalcitonin 07/29/17 16:15 POC Glucose (mg/dL) 85 Iron TIBC % Saturation Triglycerides Cholesterol LDL Cholesterol Direct HDL Cholesterol Procalcitonin Assessment & Plan - Assessment and Plan (Free Text) Plan: Assessment Consider sepsis due to right lower lobe HCAP HTN COPD atrial fibrillation throat cancer dementia history of CVA of left frontal lobe liver cirrhosis Plan Started patient on Vancomycin, Cefepime and Doxycycline pending blood and sputum cx; follow up PCT; reviewed CXR follow up rapid Flu test will monitor clinically
--- NOTE | 2017-07-30 16:31 | MRI ---
PROCEDURE: Magnetic Resonance Angiography Brain HISTORY: L Hemiphelgia COMPARISON: CT angio 07/28/2017 TECHNIQUE: 3D time of flight MR angiography of the intracranial arteries was performed. Rotating maximum intensity projection images were generated. FINDINGS: INTERNAL CAROTID ARTERIES: As noted on the CT angio there is complete occlusion of the left internal carotid. Despite the presence of the large right hemispheric infarct flow is seen in the right middle cerebral artery. There is diminished flow in the left middle cerebral. ANTERIOR CEREBRAL ARTERIES: Unremarkable. A1 and A2 segments are widely patent. Smaller distal branches unremarkable, as visualized. MIDDLE CEREBRAL ARTERIES: Diminished flow on the mid left middle cerebral artery. No occlusions seen on the right POSTERIOR CIRCULATION: Basilar Artery: Unremarkable. Distal Vertebral Arteries: Unremarkable. Posterior Cerebral Arteries: Unremarkable. Posterior Inferior Cerebellar Arteries: Unremarkable. ANEURYSM/ VASCULAR MALFORMATIONS: None. OTHER FINDINGS: None. IMPRESSION: Occlusion of the left internal carotid artery with diminished flow in the left middle cerebral artery. No occlusion on the right side to correspond to the large right hemispheric infarct
--- NOTE | 2017-07-30 16:34 | MRI ---
PROCEDURE: MR Angiography of the neck without contrast HISTORY: CVA COMPARISON: CTA 07/28/2017 TECHNIQUE: 3D [id number] angiography of the neck was performed. Rotating maximum intensity projection images of the cervical carotid and vertebral arteries were generated. The origins of the common carotid arteries were not visualized, which is a limitation inherent to the non-contrast time of flight technique. FINDINGS: RIGHT CAROTID ARTERIES: Common Carotid Artery: Normal. Carotid Bifurcation: Normal. Internal Carotid Artery:Normal. External Carotid Artery (proximal branches): Normal. LEFT CAROTID ARTERIES: Common Carotid Artery: Normal. Carotid Bifurcation: Occluded left internal carotid Internal Carotid Artery:Occluded External Carotid Artery (proximal branches): Normal. VERTEBRAL ARTERIES: Right Vertebral Artery: Normal. Left Vertebral Artery: Dominant OTHER FINDINGS: None. IMPRESSION: Occlusion of the left internal carotid artery.
[2017-07-30] MEDS: Cefepime IV 2 gm in NS 2 GM/100 ML BAG IVPB SCH ×2 (19:26→22:04)
[2017-07-30] MEDS: Albuterol-Ipratrop 3 mg / 0.5 (3 ml) UD IH SCH (21:00)
--- NOTE | 2017-07-30 23:27 | PN ---
DATE: SUBJECTIVE: This is a 71-year-old male. The patient is seen and examined at the bedside, looking comfortable. No nausea, vomiting, or diarrhea. No hematuria or hematochezia. No headache or dizziness. No chest pain, no palpitation. No fever, no chills. Failed swallowing evaluation, cannot eat, planning to do PEG tube due to dysphagia, seen by neurologist. Still having weakness of the left side of the body, especially left lower extremity, has facial droop. Went for MRI today. PHYSICAL EXAMINATION: VITAL SIGNS: Temperature 98.6, pulse 111, respiratory rate 20, blood pressure 147/98, pulse oxymetry 98. HEENT: Head: Normocephalic and atraumatic. Eyes: PERRLA. Extraocular muscles intact. Conjunctivae clear. Nose: Patent. Mucous membranes moist. NECK: Supple. No carotid bruit, JVD, or thyromegaly. CHEST: Bilaterally symmetrical. HEART: S1, S2 positive. LUNGS: Clear to auscultation. ABDOMEN: Soft. Bowel sounds present. No organomegaly. EXTREMITIES: Left upper and lower extremities power is 0. Right upper and lower extremities power is 5/5. Obeying simple orders with dysarthria. MEDICATIONS: doxycycline, Lovenox, cefepime, Protonix, and Tylenol. LABORATORY DATA: White blood cells 6.5, hemoglobin 11.9, hematocrit 37.1, platelets 138. Sodium 140, potassium 3.8, BUN 90, creatinine 1.2, glucose 89. ASSESSMENT AND PLAN: Mr. Geo Ewing is a 71-year-old male who has multiple medical problems, hypertension, chronic obstructive pulmonary disease, atrial fibrillation, history of throat cancer, dementia, history of cerebrovascular accident of left frontal lobe, liver cirrhosis, anemia. Consider sepsis due to right lower lobe healthcare-associated pneumonia. The patient is getting vancomycin, cefepime, doxycycline. Blood and sputum cultures are pending. Follow up rapid flu test. Seen by Dr. Pak, neurologist. Found to have ischemic stroke. Dr. Pak recommended MRI of the brain, MRI of the head and neck. Lovenox ordered. PT/OT. Recommended echocardiographic bubble study. GI and DVT prophylaxes. Repeat labs. We will follow up with MRI. Mariana Fernandez MD JAMES
[2017-07-31] MEDS: Dextrose 5%/0.9% NS 1,000 ML IV SCH ×4 (01:32→22:41)
--- NOTE | 2017-07-31 02:35 | CON ---
DATE: 07/30/2017 REFERRING PHYSICIAN: Mariana Fernandez MD REASON FOR CONSULTATION: Aspiration pneumonia, chronic lung disease. HISTORY OF PRESENT ILLNESS: This is a 71-year-old gentleman with known history of some sort of throat cancer, history of head and neck surgery, hypertension, chronic lung disease, atrial fibrillation, history of old stroke, cirrhotic liver, brought into emergency room with weakness, fever, had a chest x-ray done which shows right lower lobe pneumonia, also found to have a new ischemic stroke, seen by Neurology. Presently, lying in the bed, head at 45 degrees. Has a facial droop, n.p.o. because of severe oropharyngeal dysphagia. No hemoptysis, hematemesis, hematuria, or diarrhea reported in the past. Had a G-tube which had been pulled out a while ago. PAST MEDICAL HISTORY: Chronic lung disease, hypertension, atrial fibrillation, history of throat cancer, dementia, CVA, cirrhotic liver, had a history of multiple skin discolorations, history of hip fracture. Has a inguinal hernia. ALLERGIES: NONE KNOWN SOCIAL HISTORY: Positive for history of smoking in the past. No history of alcohol abuse. FAMILY HISTORY: No significant cardiopulmonary disease is reported. MEDICATIONS: He is on IV fluid D5 normal [id number] mL/hour, doxycycline 100 mg twice a day, Lovenox 30 mg subcutaneous q. 12 hours, cefepime is 2 gm IV q. 8 hours, Protonix 40 mg daily, Tylenol p.r.n. REVIEW OF SYSTEMS: No headache, no rhinitis. Has mild cough. No sputum production. No hemoptysis or hematemesis. No hematuria or diarrhea reported. PHYSICAL EXAMINATION: GENERAL: Lying in the bed, no acute distress. VITAL SIGNS: Temperature is 98, heart rate is 101, respiratory rate is 20, blood pressure 160/99, pulse ox 99% on room air. HEENT: Moist mucous membrane. Crowded airway. Mallampati score 4. NECK: Supple. No JVD. LUNGS: Has a scattered rhonchi. HEART: S1 and S2, irregular. ABDOMEN: Soft, nontender. No organomegaly. EXTREMITIES: No edema. NEUROLOGICAL: Awake, alert, does follow simple commands. LABORATORY DATA: Shows hemoglobin 11.9, hematocrit 37.1, WBC 6.5, platelet is 138. Sodium 140, potassium 3.8, chloride 107, bicarbonate 23, BUN 19, creatinine 1.2, glucose 89, calcium is 9.3. Influenza A and B have been negative. Microbiology, blood culture so far there is no growth. Had an MRI of the brain done which shows acute right hemispheric infarct in the distribution of the middle cerebral artery. There is a mild amount of mass effect with cortical edema and effacement of the sulci. No hemorrhage reported. Head MRA is done, which shows occlusion of the left internal carotid artery with diminished flow in the left middle cerebral artery. No occlusion in the right side corresponding the edema reported. Had a chest x-ray done on admission, which shows mild congestive heart failure with bilateral pleural effusion, larger on the right. Also, has a right lower lobe pneumonia versus atelectasis. IMPRESSION AND PLAN: History of head and neck cancer, chronic obstructive lung disease, hypertension, cardiac arrhythmia, history of atrial fibrillation, ischemic stroke, also a carotid occlusion. The patient was seen by Neurology as well as Ear, Nose, and Throat, very poor gag reflex with respirations. Continue antibiotics. Keep head at 45 degrees, n.p.o. Hopefully, we can get the gastrostomy tube tomorrow or so, if not needs nasogastric tube to start feeding. Gastric prophylaxis, sequential compression devices to lower extremity. Deep venous thrombosis prophylaxis. Thank you, and we will follow with you. Fatoumata Cruz MD
[2017-07-31] MEDS: Albuterol-Ipratrop 3 mg / 0.5 (3 ml) UD IH SCH ×4 (02:40→20:45)
[2017-07-31] MEDS: Enoxaparin 30 mg Syringe SC SCH ×2 (05:19→19:13)
[2017-07-31] MEDS: Cefepime IV 2 gm in NS 2 GM/100 ML BAG IVPB SCH ×3 (05:19→22:42)
--- NOTE | 2017-07-31 11:01 | CP.PCM.PN ---
<LópezBrittany - Last Filed: 07/31/17 14:01> Subjective - Date & Time of Evaluation Date of Evaluation: 07/31/17 Time of Evaluation: 07:00 - Subjective Subjective: GI Fellow PGY 4 Progress Note Pt seen and evaluated at bedside, pt lethargic and difficult to arouse, on breathing treatment at this am. ROS: Unable to be obtained Objective - Vital Signs/Intake and Output Vital Signs (last 24 hours): Temp Pulse Resp BP Pulse Ox 98.1 F 103 H 18 161/105 H 100 07/30/17 23:55 07/31/17 05:47 07/30/17 23:55 07/30/17 23:55 07/30/17 23:55 Intake and Output: 07/31/17 07/31/17 06:59 18:59 Intake Total 1200 0 Balance 1200 0 - Medications Medications: Current Medications Acetaminophen (Tylenol 650 Mg Supp) 650 mg RC Q4H PRN PRN Reason: Fever >100.4 F Last Admin: 07/29/17 06:46 Dose: 650 mg Albuterol/Ipratropium (Duoneb 3 Mg/0.5 Mg (3 Ml) Ud) 3 ml IH [id number] HEIDE Last Admin: 07/31/17 08:09 Dose: 3 ml Enoxaparin Sodium (Lovenox) 30 mg SC Q12H HEIDE PRN Reason: Protocol Last Admin: 07/31/17 05:19 Dose: 30 mg Doxycycline Hyclate 100 mg/ (Sodium Chloride) 100 mls @ 100 mls/hr IVPB Q12 HEIDE PRN Reason: Protocol Last Admin: 07/31/17 09:21 Dose: 100 mls/hr Dextrose/Sodium Chloride (Dextrose 5%/0.9% Ns 1000 Ml) 1,000 mls @ 100 mls/hr IV .Q10H HEIDE Last Admin: 07/31/17 05:38 Dose: 100 mls/hr Cefepime HCl (Maxipime 2gm) 2 gm in 100 mls @ 100 mls/hr IVPB Q8 HEIDE PRN Reason: Protocol Stop: 08/04/17 16:16 Last Admin: 07/31/17 05:19 Dose: 100 mls/hr Pantoprazole Sodium (Protonix Inj) 40 mg IVP DAILY HEIDE Last Admin: 07/31/17 09:22 Dose: 40 mg - Labs Labs: 07/30/17 06:30 07/30/17 06:30 PT 12.7 SECONDS (9.4-12.5) H 07/28/17 09:50 INR 1.10 (0.93-1.08) H 07/28/17 09:50 APTT 27.3 Seconds (25.1-36.5) 07/28/17 09:50 - Constitutional Appears: Non-toxic, No Acute Distress, Cachectic, Chronically Ill - Head Exam Head Exam: ATRAUMATIC, NORMAL INSPECTION, NORMOCEPHALIC - ENT Exam ENT Exam: Mucous Membranes Dry - Respiratory Exam Respiratory Exam: Rhonchi, NORMAL BREATHING PATTERN - Cardiovascular Exam Cardiovascular Exam: REGULAR RHYTHM - GI/Abdominal Exam GI & Abdominal Exam: Soft, Normal Bowel Sounds. absent: Distended, Rigid, Tenderness - Extremities Exam Extremities Exam: Normal Inspection - Skin Skin Exam: Dry, Intact, Normal Color, Warm Assessment and Plan - Assessment and Plan (Free Text) Assessment: This is a 71M w. hx of neck cancer s/p radiation and resection, CVA, dementia who presents to the hospital with new CVA. GI evaluation for Dyphagia and possible PEG 1. Dysphagia, likely 2/2 CVA 2. Poor oral intake 3. Dementia 4. Hx of neck cancer s/p radiation and resection Plan: -Called and discussed with pt's daughter need for PEG for nutritional status and she would like to wait and see if he can start eating on his own. She is concerned he will pull out his PEG tube like in the past. Also, reports prior to coming into the hospital he was eating pureed food with no issues. Discussed with her finding from speech and swallow evaluation with concern for aspiration and recommend Npo. Pt's daughter will like to wait and hold for PEG and see if any clinical improvement. -keep NPO for now -strict aspiration precautions -hx of pulling PEG in the past, will need a binder -can place an NG if needed for meds and feeds -continue rest of care as per primary team -Please call if plan for PEG <Gene El - Last Filed: 07/31/17 14:45> Objective - Vital Signs/Intake and Output Vital Signs (last 24 hours): Temp Pulse Resp BP Pulse Ox 98.3 F 109 H 20 145/97 H 100 07/31/17 12:00 07/31/17 12:00 07/31/17 12:00 07/31/17 12:00 07/30/17 23:55 Intake and Output: 07/31/17 07/31/17 06:59 18:59 Intake Total 1200 0 Balance 1200 0 - Medications Medications: Current Medications Acetaminophen (Tylenol 650 Mg Supp) 650 mg RC Q4H PRN PRN Reason: Fever >100.4 F Last Admin: 07/29/17 06:46 Dose: 650 mg Albuterol/Ipratropium (Duoneb 3 Mg/0.5 Mg (3 Ml) Ud) 3 ml IH [id number] HEIDE Last Admin: 07/31/17 13:20 Dose: 3 ml Enoxaparin Sodium (Lovenox) 30 mg SC Q12H HEIDE PRN Reason: Protocol Last Admin: 07/31/17 05:19 Dose: 30 mg Doxycycline Hyclate 100 mg/ (Sodium Chloride) 100 mls @ 100 mls/hr IVPB Q12 HEIDE PRN Reason: Protocol Last Admin: 07/31/17 09:21 Dose: 100 mls/hr Dextrose/Sodium Chloride (Dextrose 5%/0.9% Ns 1000 Ml) 1,000 mls @ 100 mls/hr IV .Q10H HEIDE Last Admin: 07/31/17 05:38 Dose: 100 mls/hr Cefepime HCl (Maxipime 2gm) 2 gm in 100 mls @ 100 mls/hr IVPB Q8 HEIDE PRN Reason: Protocol Stop: 08/04/17 16:16 Last Admin: 07/31/17 14:29 Dose: 100 mls/hr Pantoprazole Sodium (Protonix Inj) 40 mg IVP DAILY [facility] Last Admin: 07/31/17 09:22 Dose: 40 mg - Labs Labs: 07/30/17 06:30 07/30/17 06:30 PT 12.7 SECONDS (9.4-12.5) H 07/28/17 09:50 INR 1.10 (0.93-1.08) H 07/28/17 09:50 APTT 27.3 Seconds (25.1-36.5) 07/28/17 09:50 Attending/Attestation - Attestation I have personally seen and examined this patient.: Yes I have fully participated in the care of the patient.: Yes I have reviewed all pertinent clinical information, including history, physical exam and plan: Yes Notes (Text): 07/31/17 14:44 71 year old male with h/o head and neck tumor s/p surgery/xrt, stroke, with dysphagia and aspiration related to stroke. He will likely need a PEG. Family reluctant to give consent. When they are agreeable, we can proceed with scheduling PEG.
--- NOTE | 2017-07-31 12:30 | CP.PCM.PN ---
Subjective - Date & Time of Evaluation Date of Evaluation: 07/31/17 Time of Evaluation: 10:25 - Subjective Subjective: Neuro progress note: Pt was seen and examined at the bedside. No acute events overnight. Pt still with left sided upper and lower weakness with facial droop. Baseline dementia. He remains on NPO due to dysphagia, EENT saw the patient with suggestion of peg placement but family do not wish PEG placement as of now. No other complaints. 12 Point ROS performed and neg other than stated above. Objective - Vital Signs/Intake and Output Vital Signs (last 24 hours): Temp Pulse Resp BP Pulse Ox 98.3 F 109 H 20 145/97 H 100 07/31/17 12:00 07/31/17 12:00 07/31/17 12:00 07/31/17 12:00 07/30/17 23:55 Intake and Output: 07/31/17 07/31/17 06:59 18:59 Intake Total 1200 0 Balance 1200 0 - Medications Medications: Current Medications Acetaminophen (Tylenol 650 Mg Supp) 650 mg RC Q4H PRN PRN Reason: Fever >100.4 F Last Admin: 07/29/17 06:46 Dose: 650 mg Albuterol/Ipratropium (Duoneb 3 Mg/0.5 Mg (3 Ml) Ud) 3 ml IH [id number] HEIDE Last Admin: 07/31/17 08:09 Dose: 3 ml Enoxaparin Sodium (Lovenox) 30 mg SC Q12H HEIDE PRN Reason: Protocol Last Admin: 07/31/17 05:19 Dose: 30 mg Doxycycline Hyclate 100 mg/ (Sodium Chloride) 100 mls @ 100 mls/hr IVPB Q12 HEIDE PRN Reason: Protocol Last Admin: 07/31/17 09:21 Dose: 100 mls/hr Dextrose/Sodium Chloride (Dextrose 5%/0.9% Ns 1000 Ml) 1,000 mls @ 100 mls/hr IV .Q10H HEIDE Last Admin: 07/31/17 05:38 Dose: 100 mls/hr Cefepime HCl (Maxipime 2gm) 2 gm in 100 mls @ 100 mls/hr IVPB Q8 HEIDE PRN Reason: Protocol Stop: 08/04/17 16:16 Last Admin: 07/31/17 05:19 Dose: 100 mls/hr Pantoprazole Sodium (Protonix Inj) 40 mg IVP DAILY [facility]IDE Last Admin: 07/31/17 09:22 Dose: 40 mg - Labs Labs: 07/30/17 06:30 07/30/17 06:30 PT 12.7 SECONDS (9.4-12.5) H 07/28/17 09:50 INR 1.10 (0.93-1.08) H 07/28/17 09:50 APTT 27.3 Seconds (25.1-36.5) 07/28/17 09:50 - Constitutional Appears: No Acute Distress - Eye Exam Eye Exam: EOMI, PERRL - Neurological Exam Neurological Exam: Alert, Awake. absent: Oriented x3 Neuro motor strength exam: Left Upper Extremity: 3, Right Upper Extremity: 5, Left Lower Extremity: 4, Right Lower Extremity: 5 Assessment and Plan - Assessment and Plan (Free Text) Assessment: 71 M with acute R hemispheric infarct in MCA distribution, mild mass effect and cortical edema; and Left ICA occlusion. - CTA showed occlusion of Left ICA - Dr Nolasco consulted for any possible neurointervention - MRI brain shows acute R hemispheric infarct in MCA distribution, mild mass effect and cortical edema - F/u MRA head and neck reviewed - Left ICA stenosis and diminished flow in L MCA - F/u echo with bubble study - pending - Currently on lovenox 30mg Q12 due to patients dysphagia - F/u family recs regarding PEG - Maintain BP control with systolic BP <220/110 for permissive hypertension for 24-36 hours post stroke - followed by systolic <160 - PT and OT; Speech eval case and plan was reviewed and discussed with Dr Quintana.
--- NOTE | 2017-07-31 14:46 | CP.PCM.PN ---
Subjective - Date & Time of Evaluation Date of Evaluation: 07/31/17 Time of Evaluation: 09:45 - Subjective Subjective: Comfortable, breathing better, improved cough, no fevers. Objective - Vital Signs/Intake and Output Vital Signs (last 24 hours): Temp Pulse Resp BP Pulse Ox 97.5 F L 98 H 20 160/95 H 99 07/30/17 12:00 07/30/17 12:00 07/30/17 12:00 07/30/17 12:00 07/30/17 06:00 Intake and Output: 07/30/17 07/30/17 06:59 18:59 Intake Total 1200 Balance 1200 - Medications Medications: Current Medications Acetaminophen (Tylenol 650 Mg Supp) 650 mg RC Q4H PRN PRN Reason: Fever >100.4 F Last Admin: 07/29/17 06:46 Dose: 650 mg Enoxaparin Sodium (Lovenox) 30 mg SC Q12H HEIDE PRN Reason: Protocol Last Admin: 07/30/17 04:15 Dose: 30 mg Doxycycline Hyclate 100 mg/ (Sodium Chloride) 100 mls @ 100 mls/hr IVPB Q12 HEIDE PRN Reason: Protocol Last Admin: 07/30/17 11:21 Dose: 100 mls/hr Dextrose/Sodium Chloride (Dextrose 5%/0.9% Ns 1000 Ml) 1,000 mls @ 100 mls/hr IV .Q10H HEIDE Cefepime HCl (Maxipime 2gm) 2 gm in 100 mls @ 100 mls/hr IVPB Q8 HEIDE PRN Reason: Protocol Stop: 08/04/17 16:16 Vancomycin HCl (Vancomycin 1gm) 1 gm in 250 mls @ 167 mls/hr IVPB STAT STA PRN Reason: Protocol Stop: 07/30/17 17:33 Pantoprazole Sodium (Protonix Inj) 40 mg IVP DAILY HEIDE Last Admin: 07/30/17 11:25 Dose: 40 mg - Labs Labs: 07/30/17 06:30 07/30/17 06:30 PT 12.7 SECONDS (9.4-12.5) H 07/28/17 09:50 INR 1.10 (0.93-1.08) H 07/28/17 09:50 APTT 27.3 Seconds (25.1-36.5) 07/28/17 09:50 - Constitutional Appears: Chronically Ill - Head Exam Head Exam: NORMAL INSPECTION - Neck Exam Neck Exam: absent: Meningismus - Respiratory Exam Respiratory Exam: Decreased Breath Sounds - Cardiovascular Exam Cardiovascular Exam: +S1, +S2 - GI/Abdominal Exam GI & Abdominal Exam: Soft. absent: Tenderness Assessment and Plan - Assessment and Plan (Free Text) Plan: Assessment Consider sepsis due to right lower lobe HCAP HTN COPD atrial fibrillation throat cancer dementia history of CVA of left frontal lobe liver cirrhosis Plan Started patient on a dose of IV Vancomycin and continue on Cefepime and Doxycycline day 2; blood cx are negative; PCT is 0.05 - if cultures continue to be negative, may d/c cefepime as well; reviewed CXR rapid Flu test is negative will continue to monitor clinically
--- NOTE | 2017-07-31 15:31 | CP.PCM.PN ---
<Iesha Ramos - Last Filed: 07/31/17 15:28> Subjective - Date & Time of Evaluation Date of Evaluation: 07/31/17 Time of Evaluation: 10:40 - Subjective Subjective: Chief complaint: AMS, dysphagia 71 yr male with history of Afib (on Xarelto), HTN, COPD, throat cancer (s/p radiation), cirrhosis, Dementia and TIA (R sided weakness). Pt admitted to [facility] [place] for AMS, slurred speech and new L onset sided weakness. Pt was found to have acute R hemispheric infarct with occlusion of L internal carotid. R lower lobe atelectasis/peumonia also being treated. Today, pt seen at bedside. He is confused and a poor historian. Denies any shortness of breath , chest pain, headache, fever, chills, diarrhea, constipation, paraesthesias, or urinary changes. Objective - Vital Signs/Intake and Output Vital Signs (last 24 hours): Temp Pulse Resp BP Pulse Ox 98.3 F 109 H 20 145/97 H 100 07/31/17 12:00 07/31/17 14:00 07/31/17 12:00 07/31/17 12:00 07/30/17 23:55 Intake and Output: 07/31/17 07/31/17 06:59 18:59 Intake Total 1200 0 Balance 1200 0 - Medications Medications: Current Medications Acetaminophen (Tylenol 650 Mg Supp) 650 mg RC Q4H PRN PRN Reason: Fever >100.4 F Last Admin: 07/29/17 06:46 Dose: 650 mg Albuterol/Ipratropium (Duoneb 3 Mg/0.5 Mg (3 Ml) Ud) 3 ml IH [id number] [facility] Last Admin: 07/31/17 13:20 Dose: 3 ml Enoxaparin Sodium (Lovenox) 30 mg SC Q12H HEIDE PRN Reason: Protocol Last Admin: 07/31/17 05:19 Dose: 30 mg Doxycycline Hyclate 100 mg/ (Sodium Chloride) 100 mls @ 100 mls/hr IVPB Q12 HEIDE PRN Reason: Protocol Last Admin: 07/31/17 09:21 Dose: 100 mls/hr Dextrose/Sodium Chloride (Dextrose 5%/0.9% Ns 1000 Ml) 1,000 mls @ 100 mls/hr IV .Q10H HEIDE Last Admin: 07/31/17 05:38 Dose: 100 mls/hr Cefepime HCl (Maxipime 2gm) 2 gm in 100 mls @ 100 mls/hr IVPB Q8 [facility] PRN Reason: Protocol Stop: 08/04/17 16:16 Last Admin: 07/31/17 14:29 Dose: 100 mls/hr Pantoprazole Sodium (Protonix Inj) 40 mg IVP DAILY [facility] Last Admin: 07/31/17 09:22 Dose: 40 mg - Labs Labs: 07/30/17 06:30 07/30/17 06:30 PT 12.7 SECONDS (9.4-12.5) H 07/28/17 09:50 INR 1.10 (0.93-1.08) H 07/28/17 09:50 APTT 27.3 Seconds (25.1-36.5) 07/28/17 09:50 - Constitutional Appears: Chronically Ill - Head Exam Head Exam: ATRAUMATIC Additional comments: L facial droop - Eye Exam Eye Exam: Normal appearance Pupil Exam: NORMAL ACCOMODATION, PERRL - ENT Exam ENT Exam: Mucous Membranes Dry - Neck Exam Neck Exam: Full ROM - Respiratory Exam Respiratory Exam: Clear to Ausculation Bilateral, Rhonchi - Cardiovascular Exam Cardiovascular Exam: REGULAR RHYTHM, +S1, +S2 - GI/Abdominal Exam GI & Abdominal Exam: Soft, Normal Bowel Sounds - Extremities Exam Extremities Exam: Pedal Edema Additional comments: L leg hemiplagia, L arm weakness R leg, R arm weakness - Back Exam Back Exam: NORMAL INSPECTION - Neurological Exam Neurological Exam: Alert - Psychiatric Exam Psychiatric exam: Normal Affect, Normal Mood - Skin Skin Exam: Dry, Intact, Normal Color, Warm Assessment and Plan (1) Anemia Status: Acute (2) Pneumonia Status: Acute (3) Congestive heart failure Status: Acute (4) Pleural effusion Status: Acute (5) Right hemisphere, cerebral infarction Status: Acute (6) Facial droop as late effect of cerebrovascular accident (CVA) Status: Acute (7) Aspiration into lower respiratory tract Status: Acute (8) Cancer of neck Status: Acute (9) Head and neck malignancy Status: Acute (10) Ischemic stroke Status: Acute (11) Oropharyngeal aspiration Status: Acute (12) Oropharyngeal dysphagia Status: Acute - Assessment and Plan (Free Text) Plan: ECHO ordered. Pt failed swallow eval x2, continue NPO diet. possible PEG tube placement pending. Aspiration precautions. PO doxycyline. IV cefepime. Blood cultures NEGATIVE. VTE/ GI prophlyaxis. PT/OT on board. Consults: Neuro - Dr. Nolasco Neuro - Dr. Pak GI - Dr. El ENT - Dr. Howard ID - Dr. Craig Pulmo - Dr. Cruz Reviewed: CXR = R lower lobe atelectasis/peumonia, mild congestive heart failure, with bilateral pleural effusions larger on R. CT head = WNL CT head/neck = occlusion of L internal carotid MRI brain = acute R hemispheric infarct in the distribution of the middle cerebral artery. mild amount of mass effect with cortical; edema & effacement of sulci MRA head = occlusion of L internal carotid artery w diminished flow in <Mariana Fernandez - Last Filed: 08/01/17 17:00> Objective - Vital Signs/Intake and Output Vital Signs (last 24 hours): Temp Pulse Resp BP Pulse Ox 98.7 F 109 H 20 155/99 H 98 08/01/17 11:51 08/01/17 14:00 08/01/17 11:51 08/01/17 11:51 08/01/17 06:00 Intake and Output: 08/01/17 08/01/17 06:59 18:59 Intake Total 1200 0 Output Total 0 Balance 1200 0 - Medications Medications: Current Medications Acetaminophen (Tylenol 650 Mg Supp) 650 mg RC Q4H PRN PRN Reason: Fever >100.4 F Last Admin: 07/29/17 06:46 Dose: 650 mg Albuterol/Ipratropium (Duoneb 3 Mg/0.5 Mg (3 Ml) Ud) 3 ml IH [id number] HEIDE Last Admin: 08/01/17 13:59 Dose: 3 ml Enoxaparin Sodium (Lovenox) 30 mg SC Q12H HEIDE PRN Reason: Protocol Last Admin: 08/01/17 05:55 Dose: 30 mg Doxycycline Hyclate 100 mg/ (Sodium Chloride) 100 mls @ 100 mls/hr IVPB Q12 HEIDE PRN Reason: Protocol Last Admin: 08/01/17 09:41 Dose: 100 mls/hr Dextrose/Sodium Chloride (Dextrose 5%/0.9% Ns 1000 Ml) 1,000 mls @ 100 mls/hr IV .Q10H [facility] Last Admin: 08/01/17 13:01 Dose: 100 mls/hr Cefepime HCl (Maxipime 2gm) 2 gm in 100 mls @ 100 mls/hr IVPB Q8 [facility] PRN Reason: Protocol Stop: 08/04/17 16:16 Last Admin: 08/01/17 15:06 Dose: 100 mls/hr Metoprolol Tartrate (Lopressor) 25 mg PO BRKDIN [facility] Last Admin: 08/01/17 09:21 Dose: Not Given Pantoprazole Sodium (Protonix Inj) 40 mg IVP DAILY [facility] Last Admin: 08/01/17 09:41 Dose: 40 mg - Labs Labs: 07/30/17 06:30 07/30/17 06:30 PT 12.7 SECONDS (9.4-12.5) H 07/28/17 09:50 INR 1.10 (0.93-1.08) H 07/28/17 09:50 APTT 27.3 Seconds (25.1-36.5) 07/28/17 09:50 Assessment and Plan - Assessment and Plan (Free Text) Plan: 71 yr male with history of Afib (on Xarelto), HTN, COPD, throat cancer (s/p radiation), cirrhosis, Dementia and TIA (R sided weakness). Pt admitted to [facility] for AMS, slurred speech and new L onset sided weakness. Pt was found to have acute R hemispheric infarct with occlusion of L internal carotid. R lower lobe atelectasis/peumonia also being treated. Today, pt seen at bedside. He is confused and a poor historian. Denies any shortness of breath , chest pain, headache, fever, chills, diarrhea, constipation, paraesthesias, or urinary changes.pt is seenand examined at bed side looking comfortable .agreed all chart, meds and labs noted
--- NOTE | 2017-07-31 21:41 | PN ---
DATE: 07/31/2017 PULMONARY PROGRESS NOTE REFERRING PHYSICIAN: Dr. Fernandez. SUBJECTIVE: He is lying in the bed, head at 45 degrees. Night was unremarkable. Had some cough. No sputum production. No hemoptysis. No hematemesis. No hematuria. No diarrhea reported. OBJECTIVE: GENERAL: In no acute distress. VITAL SIGNS: Temp is 98, heart rate is 109, respiratory rate is 20, blood pressure 151/106, pulse ox is 98% on room air. HEENT: Moist mucous membrane. Crowded airway. NECK: Supple. No JVD. LUNGS: Have a few scattered rhonchi. HEART: S1 and S2. ABDOMEN: Soft and nontender. No organomegaly. EXTREMITIES: No edema. NEUROLOGICAL: Awake and alert. Follows simple command. LABORATORY DATA: Reviewed and noted. Blood sugar is 96. Microbiology: Blood culture has been negative. MEDICATIONS: He is on IV fluid D5 normal [id number] mL/hour, doxycycline 100 mg twice a day, albuterol/Atrovent nebulizer q. 6 hours, Lovenox 30 mg q. 12 hours, cefepime 2 gm IV q. 8 hours, Protonix 40 mg daily, Tylenol p.r.n. basis. IMPRESSION AND PLAN: Head and neck cancer in the remote past, requiring radical dissection, chronic obstructive lung disease, hypertension, cardiac arrhythmia, history of atrial fibrillation, ischemic stroke. Has a left carotid occlusion. Spoke to nursing staff. Apparently, family refused gastrostomy tube placement understanding this covers recurrent aspiration. We will get swallow evaluation tomorrow. Continue bronchodilator. Keep head at 45 degrees. Gastric prophylaxis. Sequential compression device to lower extremity. We will start him on beta yessenia. Thank you and we will follow with you. Fatoumata Cruz MD
[2017-08-01] MEDS: Albuterol-Ipratrop 3 mg / 0.5 (3 ml) UD IH SCH ×4 (02:40→19:36)
[2017-08-01] MEDS ORDERED: Metoprolol 1 mg/ml Inj IVP ONE (05:21)
[2017-08-01] MEDS: Cefepime IV 2 gm in NS 2 GM/100 ML BAG IVPB SCH ×3 (05:55→22:45)
[2017-08-01] MEDS: Enoxaparin 30 mg Syringe SC SCH ×2 (05:55→17:43)
--- NOTE | 2017-08-01 05:57 | CP.PCM.PN ---
Subjective - Date & Time of Evaluation Date of Evaluation: 08/01/17 Time of Evaluation: 05:51 - Subjective Subjective: Patient was seen at bed side. His blood pressure is 149/101 mm Hg.HR 109/min. Monitor shows atrial fibrillation. Has little lightheadedness. No other complaints. Medical record was reviewed. He has an order for lopressor 25 mg PO daily. He has failed swallow eval. This 71 years old male is admitted with slurred speech, left arm and leg weakness. Has PMH of HTN,CMP, throat cancer,dementia, cirrhosis, right inguinal hernia repair. Objective - Vital Signs/Intake and Output Vital Signs (last 24 hours): Temp Pulse Resp BP Pulse Ox 97.4 F L 100 H 19 148/100 H 97 08/01/17 00:01 08/01/17 02:00 08/01/17 00:01 08/01/17 00:01 08/01/17 00:01 Intake and Output: 07/31/17 08/01/17 18:59 06:59 Intake Total 0 Balance 0 - Medications Medications: Current Medications Acetaminophen (Tylenol 650 Mg Supp) 650 mg RC Q4H PRN PRN Reason: Fever >100.4 F Last Admin: 07/29/17 06:46 Dose: 650 mg Albuterol/Ipratropium (Duoneb 3 Mg/0.5 Mg (3 Ml) Ud) 3 ml IH [id number] [facility] Last Admin: 08/01/17 02:40 Dose: 3 ml Enoxaparin Sodium (Lovenox) 30 mg SC Q12H HEIDE PRN Reason: Protocol Last Admin: 07/31/17 19:13 Dose: 30 mg Doxycycline Hyclate 100 mg/ (Sodium Chloride) 100 mls @ 100 mls/hr IVPB Q12 HEIDE PRN Reason: Protocol Last Admin: 07/31/17 22:43 Dose: 100 mls/hr Dextrose/Sodium Chloride (Dextrose 5%/0.9% Ns 1000 Ml) 1,000 mls @ 100 mls/hr IV .Q10H [facility] Last Admin: 07/31/17 22:41 Dose: Not Given Cefepime HCl (Maxipime 2gm) 2 gm in 100 mls @ 100 mls/hr IVPB Q8 HEIDE PRN Reason: Protocol Stop: 08/04/17 16:16 Last Admin: 07/31/17 22:42 Dose: 100 mls/hr Metoprolol Tartrate (Lopressor) 25 mg PO BRKDIN HEIDE Pantoprazole Sodium (Protonix Inj) 40 mg IVP DAILY HEIDE Last Admin: 07/31/17 09:22 Dose: 40 mg - Labs Labs: 07/30/17 06:30 07/30/17 06:30 PT 12.7 SECONDS (9.4-12.5) H 07/28/17 09:50 INR 1.10 (0.93-1.08) H 07/28/17 09:50 APTT 27.3 Seconds (25.1-36.5) 07/28/17 09:50 Micro Results 07/29/17 02:30 Blood-Venous Blood Culture - Preliminary NO GROWTH AFTER 3 DAYS 07/29/17 02:30 Blood-Venous Blood Culture - Preliminary NO GROWTH AFTER 3 DAYS Most Recent Lab Values WBC 6.5 10^3/ul (4.5-11.0) 07/30/17 06:30 RBC 4.27 10^6/uL (3.5-6.1) 07/30/17 06:30 Hgb 11.9 g/dL (14.0-18.0) L 07/30/17 06:30 Hct 37.1 % (42.0-52.0) L 07/30/17 06:30 MCV 86.9 fl (80.0-105.0) 07/30/17 06:30 MCH 27.9 pg (25.0-35.0) 07/30/17 06:30 MCHC 32.1 g/dl (31.0-37.0) 07/30/17 06:30 RDW 14.4 % (11.5-14.5) 07/30/17 06:30 Plt Count 138 10^3/uL (120.0-450.0) 07/30/17 06:30 MPV 9.4 fl (7.0-11.0) 07/30/17 06:30 Gran % 85.5 % (50.0-68.0) H 07/28/17 09:50 Lymph % (Auto) 9.0 % (22.0-35.0) L 07/28/17 09:50 [place] % (Auto) 4.8 % (1.0-6.0) 07/28/17 09:50 Eos % (Auto) 0.6 % (1.5-5.0) L 07/28/17 09:50 Baso % (Auto) 0.1 % (0.0-3.0) 07/28/17 09:50 Gran # 5.89 (1.4-6.5) 07/28/17 09:50 Lymph # (Auto) 0.6 (1.2-3.4) L 07/28/17 09:50 [place] # (Auto) 0.3 (0.1-0.6) 07/28/17 09:50 Eos # (Auto) 0.0 (0.0-0.7) 07/28/17 09:50 Baso # (Auto) 0.01 K/mm3 (0.0-2.0) 07/28/17 09:50 PT 12.7 SECONDS (9.4-12.5) H 07/28/17 09:50 INR 1.10 (0.93-1.08) H 07/28/17 09:50 APTT 27.3 Seconds (25.1-36.5) 07/28/17 09:50 Sodium 140 mmol/L (132-148) 07/30/17 06:30 Potassium 3.8 mmol/L (3.6-5.0) 07/30/17 06:30 Chloride 107 mmol/L (98-107) 07/30/17 06:30 Carbon Dioxide 23 mmol/L (21-33) 07/30/17 06:30 Anion Gap 13 (10-20) 07/30/17 06:30 BUN 19 mg/dL (7-21) 07/30/17 06:30 Creatinine 1.2 mg/dl (0.8-1.5) 07/30/17 06:30 Est GFR ( Amer) > 60 07/30/17 06:30 Est GFR (Non-Af Amer) 60 07/30/17 06:30 POC Glucose (mg/dL) 96 mg/dL (65-110) 07/31/17 16:52 Random Glucose 88 mg/dL (70-110) 07/30/17 06:30 Hemoglobin A1c 5.2 % (4.2-6.5) 07/30/17 06:30 Calcium 9.3 mg/dL (8.4-10.5) 07/30/17 06:30 Iron 75 ug/dL (45-180) 07/29/17 12:30 TIBC 284 ug/dL (261-462) 07/29/17 12:30 % Saturation 26 % (20-55) 07/29/17 12:30 Total Bilirubin 0.9 mg/dL (0.2-1.3) 07/28/17 09:50 AST 43 U/L (17-59) 07/28/17 09:50 ALT 40 U/L (7-56) 07/28/17 09:50 Alkaline Phosphatase 59 U/L (38-126) 07/28/17 09:50 Troponin I < 0.01 ng/mL D 07/28/17 09:50 Total Protein 7.9 g/dL (5.8-8.3) 07/28/17 09:50 Albumin 4.1 g/dL (3.0-4.8) 07/28/17 09:50 Globulin 3.8 gm/dL 07/28/17 09:50 Albumin/Globulin Ratio 1.1 (1.1-1.8) 07/28/17 09:50 Triglycerides 81 mg/dL (35-160) 07/29/17 12:30 Cholesterol 112 mg/dL (130-200) L 07/29/17 12:30 LDL Cholesterol Direct 42 mg/dL (0-129) 07/29/17 12:30 HDL Cholesterol 46 mg/dL (29-60) 07/29/17 12:30 Vitamin B12 286 pg/mL (239-931) 07/29/17 12:30 Folate 12.3 ng/mL 07/29/17 12:30 Procalcitonin 0.05 NG/ML (0.19-0.49) L 07/29/17 05:20 TSH 3rd Generation 1.48 mIU/mL (0.46-4.68) 07/30/17 06:30 Influenza Typ A,B (EIA) Negative for flu a/b (NEGATIVE) 07/30/17 16:15 Blood Type O POSITIVE 07/28/17 09:50 Antibody Screen Negative 07/28/17 09:50 BBK History Checked Patient has bt 07/28/17 09:50 - Constitutional Appears: Well, No Acute Distress - Head Exam Head Exam: ATRAUMATIC, NORMAL INSPECTION, NORMOCEPHALIC - Eye Exam Eye Exam: Normal appearance - ENT Exam ENT Exam: Normal External Ear Exam - Neck Exam Neck Exam: Normal Inspection - Respiratory Exam Respiratory Exam: NORMAL BREATHING PATTERN - Cardiovascular Exam Cardiovascular Exam: absent: JVD - GI/Abdominal Exam GI & Abdominal Exam: absent: Distended - Rectal Exam Rectal Exam: Deferred - Exam Additional comments: deferred. - Extremities Exam Extremities Exam: Normal Inspection - Back Exam Back Exam: NORMAL INSPECTION - Neurological Exam Neurological Exam: Alert - Psychiatric Exam Psychiatric exam: Normal Affect, Normal Mood - Skin Skin Exam: Normal Color Assessment and Plan - Assessment and Plan (Free Text) Assessment: Elevated blood pressure reading. Atrial fibrillation with moderate rate. Hypertension. TIa/CVA. HTN. Throat cancer. Dementia. Cirrhosis. Plan: Lopressor 2.5 mg IV x 1. Continue present management .
--- NOTE | 2017-08-01 09:57 | CP.PCM.PN ---
<López,Brittany - Last Filed: 08/01/17 12:18> Subjective - Date & Time of Evaluation Date of Evaluation: 08/01/17 Time of Evaluation: 06:00 - Subjective Subjective: GI Fellow PGY4 Progress Note Pt seen and evaluated at bedside, pt doing well this am, more alert and awake and answering questions. Pt does have dementia at baseline. No events overnight. ROS: A 12pt ROS was negative except as above Objective - Vital Signs/Intake and Output Vital Signs (last 24 hours): Temp Pulse Resp BP Pulse Ox 98 F 105 H 18 149/101 H 98 08/01/17 06:00 08/01/17 06:00 08/01/17 06:00 08/01/17 06:00 08/01/17 06:00 Intake and Output: 08/01/17 08/01/17 06:59 18:59 Intake Total 1200 Output Total 0 Balance 1200 - Medications Medications: Current Medications Acetaminophen (Tylenol 650 Mg Supp) 650 mg RC Q4H PRN PRN Reason: Fever >100.4 F Last Admin: 07/29/17 06:46 Dose: 650 mg Albuterol/Ipratropium (Duoneb 3 Mg/0.5 Mg (3 Ml) Ud) 3 ml IH [id number] HEIDE Last Admin: 08/01/17 07:54 Dose: 3 ml Enoxaparin Sodium (Lovenox) 30 mg SC Q12H HEIDE PRN Reason: Protocol Last Admin: 08/01/17 05:55 Dose: 30 mg Doxycycline Hyclate 100 mg/ (Sodium Chloride) 100 mls @ 100 mls/hr IVPB Q12 HEIDE PRN Reason: Protocol Last Admin: 08/01/17 09:41 Dose: 100 mls/hr Dextrose/Sodium Chloride (Dextrose 5%/0.9% Ns 1000 Ml) 1,000 mls @ 100 mls/hr IV .Q10H [facility] Last Admin: 07/31/17 22:41 Dose: Not Given Cefepime HCl (Maxipime 2gm) 2 gm in 100 mls @ 100 mls/hr IVPB Q8 HEIDE PRN Reason: Protocol Stop: 08/04/17 16:16 Last Admin: 08/01/17 05:55 Dose: 100 mls/hr Metoprolol Tartrate (Lopressor) 25 mg PO BRKDIN HE[facility] Last Admin: 08/01/17 09:21 Dose: Not Given Pantoprazole Sodium (Protonix Inj) 40 mg IVP DAILY [facility] Last Admin: 08/01/17 09:41 Dose: 40 mg - Labs Labs: 07/30/17 06:30 07/30/17 06:30 PT 12.7 SECONDS (9.4-12.5) H 07/28/17 09:50 INR 1.10 (0.93-1.08) H 07/28/17 09:50 APTT 27.3 Seconds (25.1-36.5) 07/28/17 09:50 - Constitutional Appears: Non-toxic, No Acute Distress, Older Than Stated Age, Cachectic - Head Exam Head Exam: ATRAUMATIC, NORMAL INSPECTION, NORMOCEPHALIC - Eye Exam Eye Exam: EOMI, Normal appearance, PERRL - ENT Exam ENT Exam: Mucous Membranes Dry - Neck Exam Neck Exam: Full ROM - Respiratory Exam Respiratory Exam: Clear to Ausculation Bilateral, NORMAL BREATHING PATTERN - Cardiovascular Exam Cardiovascular Exam: REGULAR RHYTHM - GI/Abdominal Exam GI & Abdominal Exam: Soft, Normal Bowel Sounds. absent: Distended, Guarding, Tenderness - Extremities Exam Extremities Exam: Normal Inspection - Back Exam Back Exam: NORMAL INSPECTION - Neurological Exam Neurological Exam: Alert, Awake - Psychiatric Exam Psychiatric exam: Normal Affect, Normal Mood - Skin Skin Exam: Dry, Intact, Normal Color, Warm Assessment and Plan - Assessment and Plan (Free Text) Assessment: This is a 71M w. hx of neck cancer s/p radiation and resection, CVA, dementia who presents to the hospital with new CVA. GI evaluation for Dyphagia and possible PEG 1. Dysphagia, likely 2/2 CVA 2. Poor oral intake 3. Dementia 4. Hx of neck cancer s/p radiation and resection Plan: -keep NPO for now -strict aspiration precautions -hx of pulling PEG in the past, will need a binder -continue rest of care as per primary team -Plan for possible PEG tomorrow, will discuss with daughter today and get consent <Gene El - Last Filed: 08/01/17 13:52> Objective - Vital Signs/Intake and Output Vital Signs (last 24 hours): Temp Pulse Resp BP Pulse Ox 98.7 F 98 H 20 155/99 H 98 08/01/17 11:51 08/01/17 11:51 08/01/17 11:51 08/01/17 11:51 08/01/17 06:00 Intake and Output: 08/01/17 08/01/17 06:59 18:59 Intake Total 1200 Output Total 0 Balance 1200 - Medications Medications: Current Medications Acetaminophen (Tylenol 650 Mg Supp) 650 mg RC Q4H PRN PRN Reason: Fever >100.4 F Last Admin: 07/29/17 06:46 Dose: 650 mg Albuterol/Ipratropium (Duoneb 3 Mg/0.5 Mg (3 Ml) Ud) 3 ml IH [id number] HEIDE Last Admin: 08/01/17 07:54 Dose: 3 ml Enoxaparin Sodium (Lovenox) 30 mg SC Q12H HEIDE PRN Reason: Protocol Last Admin: 08/01/17 05:55 Dose: 30 mg Doxycycline Hyclate 100 mg/ (Sodium Chloride) 100 mls @ 100 mls/hr IVPB Q12 HEIDE PRN Reason: Protocol Last Admin: 08/01/17 09:41 Dose: 100 mls/hr Dextrose/Sodium Chloride (Dextrose 5%/0.9% Ns 1000 Ml) 1,000 mls @ 100 mls/hr IV .Q10H [facility] Last Admin: 08/01/17 13:01 Dose: 100 mls/hr Cefepime HCl (Maxipime 2gm) 2 gm in 100 mls @ 100 mls/hr IVPB Q8 HEIDE PRN Reason: Protocol Stop: 08/04/17 16:16 Last Admin: 08/01/17 05:55 Dose: 100 mls/hr Metoprolol Tartrate (Lopressor) 25 mg PO BRKDIN [facility] Last Admin: 08/01/17 09:21 Dose: Not Given Pantoprazole Sodium (Protonix Inj) 40 mg IVP DAILY [facility] Last Admin: 08/01/17 09:41 Dose: 40 mg - Labs Labs: 07/30/17 06:30 07/30/17 06:30 PT 12.7 SECONDS (9.4-12.5) H 07/28/17 09:50 INR 1.10 (0.93-1.08) H 07/28/17 09:50 APTT 27.3 Seconds (25.1-36.5) 07/28/17 09:50 Attending/Attestation - Attestation I have personally seen and examined this patient.: Yes I have fully participated in the care of the patient.: Yes I have reviewed all pertinent clinical information, including history, physical exam and plan: Yes Notes (Text): 08/01/17 13:51 71 year old male with h/o head and neck tumor s/p surgery/xrt, stroke, with dysphagia and aspiration related to stroke. Plan for PEG tomorrow.
[2017-08-01] MEDS: Dextrose 5%/0.9% NS 1,000 ML IV SCH ×2 (10:02→13:01)
--- NOTE | 2017-08-01 10:33 | CP.PCM.PN ---
Subjective - Date & Time of Evaluation Date of Evaluation: 08/01/17 Time of Evaluation: 07:20 - Subjective Subjective: Neuro progress note: Pt was seen and examined at the bedside. No acute events overnight. Pt complaining of left sided upper and lower weakness. Baseline dementia. I spoke to the patient daughter regarding PEG tube placement as patient has failed swallow eval. Daughter seems agreeable and to finally decide later today. No other complaints. 12 Point ROS performed and neg other than stated above. Objective - Vital Signs/Intake and Output Vital Signs (last 24 hours): Temp Pulse Resp BP Pulse Ox 98 F 105 H 18 149/101 H 98 08/01/17 06:00 08/01/17 06:00 08/01/17 06:00 08/01/17 06:00 08/01/17 06:00 Intake and Output: 08/01/17 08/01/17 06:59 18:59 Intake Total 1200 Output Total 0 Balance 1200 - Medications Medications: Current Medications Acetaminophen (Tylenol 650 Mg Supp) 650 mg RC Q4H PRN PRN Reason: Fever >100.4 F Last Admin: 07/29/17 06:46 Dose: 650 mg Albuterol/Ipratropium (Duoneb 3 Mg/0.5 Mg (3 Ml) Ud) 3 ml IH [id number] [facility] Last Admin: 08/01/17 07:54 Dose: 3 ml Enoxaparin Sodium (Lovenox) 30 mg SC Q12H HEIDE PRN Reason: Protocol Last Admin: 08/01/17 05:55 Dose: 30 mg Doxycycline Hyclate 100 mg/ (Sodium Chloride) 100 mls @ 100 mls/hr IVPB Q12 HEIDE PRN Reason: Protocol Last Admin: 08/01/17 09:41 Dose: 100 mls/hr Dextrose/Sodium Chloride (Dextrose 5%/0.9% Ns 1000 Ml) 1,000 mls @ 100 mls/hr IV .Q10H [facility] Last Admin: 08/01/17 10:02 Dose: Not Given Cefepime HCl (Maxipime 2gm) 2 gm in 100 mls @ 100 mls/hr IVPB Q8 HEIDE PRN Reason: Protocol Stop: 08/04/17 16:16 Last Admin: 08/01/17 05:55 Dose: 100 mls/hr Metoprolol Tartrate (Lopressor) 25 mg PO BRKDIN HEIDE Last Admin: 08/01/17 09:21 Dose: Not Given Pantoprazole Sodium (Protonix Inj) 40 mg IVP DAILY [facility] Last Admin: 08/01/17 09:41 Dose: 40 mg - Labs Labs: 07/30/17 06:30 07/30/17 06:30 PT 12.7 SECONDS (9.4-12.5) H 07/28/17 09:50 INR 1.10 (0.93-1.08) H 07/28/17 09:50 APTT 27.3 Seconds (25.1-36.5) 07/28/17 09:50 - Constitutional Appears: No Acute Distress - Eye Exam Eye Exam: EOMI, PERRL Pupil Exam: NORMAL ACCOMODATION - Neurological Exam Neurological Exam: Alert, Awake Neuro motor strength exam: Left Upper Extremity: 3, Right Upper Extremity: 5, Left Lower Extremity: 4, Right Lower Extremity: 4 Assessment and Plan - Assessment and Plan (Free Text) Assessment: 71 M with acute R hemispheric infarct in MCA distribution, mild mass effect and cortical edema; and Left ICA occlusion. - CTA showed occlusion of Left ICA - Dr Joya consulted for any possible neurointervention - F/u family recs regarding PEG tube placement - currently NPO - MRI brain shows acute R hemispheric infarct in MCA distribution, mild mass effect and cortical edema - F/u MRA head and neck reviewed - Left ICA stenosis and diminished flow in L MCA - F/u echo with bubble study - pending - Currently on lovenox 30mg Q12 - Maintain BP control with systolic <160 - PT and OT; Speech eval case and plan was reviewed and discussed with Dr Quintana.
--- NOTE | 2017-08-01 15:08 | CP.PCM.CON ---
History of Present Illness - History of Present Illness History of Present Illness: The patient is a 71 y/o male with a PMH signifigant for afib, HTN, COPD, cancer of the throat, Cirrhosis, dementia and previous left frontal lobe infarction. The patient is on Xarelto. Initial presentation was for stroke with NIHSS of 3 for left sided neglect and mild weakness. CTH initally normal. Not an IV tpa candidate due to being on Xarelto and outside of the 4.5 hour time window. MRI showed an acute right MCA infarct. Non-invasive vascular imaging showed an occlusion of the left ICA on CTA and a suggestion of non-occlusive thrombus in the left MCA on MRA. Review of Systems - Constitutional Constitutional: As Per HPI - EENT Eyes: As Per HPI - Cardiovascular Cardiovascular: As Per HPI - Respiratory Respiratory: absent: As Per HPI, Cough, Dyspnea, Hemoptysis, Dyspnea on Exertion , Wheezing, Snoring, Stridor, Pain on Inspiration, Chest Congestion, Excessive Mucous Production, Change in Mucous Color, Pain with Coughing, Other - Gastrointestinal Gastrointestinal: As Per HPI - Musculoskeletal Musculoskeletal: As Per HPI, Abnormal Gait, Arthralgias, Atrophy, Back Pain, Deformity, Joint Swelling, Limited Range of Motion, Loss of Height, Muscle Cramps, Muscle Weakness, Myalgias, Neck Pain, Numbness, Radiating Pain into Limb , Stiffness, Tingling, Other - Neurological Neurological: As Per HPI Past Patient History - Infectious Disease Hx of Infectious Diseases: None - Past Medical History & Family History Past Medical History?: Yes - Past Social History Smoking Status: Former Smoker - CARDIAC Hx Cardiac Disorders: Yes Hx Hypertension: Yes - PULMONARY Hx Chronic Obstructive Pulmonary Disease (COPD): Yes - NEUROLOGICAL HX Cerebrovascular Accident: Yes (TIA 02/12) - HEENT Hx HEENT Problems: No - RENAL Hx Chronic Kidney Disease: No - ENDOCRINE/METABOLIC Hx Endocrine Disorders: No - HEMATOLOGICAL/ONCOLOGICAL Hx Cancer: Yes (throat) - INTEGUMENTARY Hx Dermatological Problems: Yes Other/Comment: multiple ble skin discolorations, laceration above left eyelid - MUSCULOSKELETAL/RHEUMATOLOGICAL Hx Musculoskeletal Disorders: Yes Hx Falls: Yes Hx Fractures: Yes (CLOSED FX ACETABULUM) - GASTROINTESTINAL Hx Gastrointestinal Disorders: Yes (L INGUINAL HERNIA) Hx Liver Failure: Yes (cirrhosis) - PSYCHIATRIC Hx Psychophysiologic Disorder: Yes Hx Depression: Yes Hx Substance Use: No - SURGICAL HISTORY Hx Surgeries: Yes - ANESTHESIA Hx Anesthesia Reactions: No Hx Malignant Hyperthermia: No Meds Allergies/Adverse Reactions: Allergies Allergy/AdvReac Type Severity Reaction Status Date / Time No Known Allergies Allergy Verified 07/28/17 13:29 - Medications Medications: Current Medications Acetaminophen (Tylenol 650 Mg Supp) 650 mg RC Q4H PRN PRN Reason: Fever >100.4 F Last Admin: 07/29/17 06:46 Dose: 650 mg Albuterol/Ipratropium (Duoneb 3 Mg/0.5 Mg (3 Ml) Ud) 3 ml IH [id number] [facility] Last Admin: 08/01/17 07:54 Dose: 3 ml Enoxaparin Sodium (Lovenox) 30 mg SC Q12H HEIDE PRN Reason: Protocol Last Admin: 08/01/17 05:55 Dose: 30 mg Doxycycline Hyclate 100 mg/ (Sodium Chloride) 100 mls @ 100 mls/hr IVPB Q12 HEIDE PRN Reason: Protocol Last Admin: 08/01/17 09:41 Dose: 100 mls/hr Dextrose/Sodium Chloride (Dextrose 5%/0.9% Ns 1000 Ml) 1,000 mls @ 100 mls/hr IV .Q10H [facility] Last Admin: 08/01/17 10:02 Dose: Not Given Cefepime HCl (Maxipime 2gm) 2 gm in 100 mls @ 100 mls/hr IVPB Q8 HEIDE PRN Reason: Protocol Stop: 08/04/17 16:16 Last Admin: 08/01/17 05:55 Dose: 100 mls/hr Metoprolol Tartrate (Lopressor) 25 mg PO BRKDIN [facility] Last Admin: 08/01/17 09:21 Dose: Not Given Pantoprazole Sodium (Protonix Inj) 40 mg IVP DAILY [facility] Last Admin: 08/01/17 09:41 Dose: 40 mg Physical Exam - Neurological Exam Additional comments: Awake and alert conversant +left facial droop left arm 0/5 left leg 3+/5 Results - Vital Signs Recent Vital Signs: Last Vital Signs Temp 98.7 F 08/01/17 11:51 Pulse 98 H 08/01/17 11:51 Resp 20 08/01/17 11:51 BP 155/99 H 08/01/17 11:51 Pulse Ox 98 03/06/18 06:00 - Labs Result Diagrams: 07/30/17 06:30 07/30/17 06:30 Labs: Laboratory Results - last 24 hr 07/31/17 07/31/17 08/01/17 11:55 16:52 07:26 POC Glucose (mg/dL) 98 96 85 Assessment & Plan - Assessment and Plan (Free Text) Assessment: 71 year old male with a large right MCA infarction. There is a left ICA occlusion which is chronic in appearance, and the likely mechanism of stroke was cardioembolic. Plan: 1-Continue current mangment as per Dr. Quintana of Neurology 2-Repeat CT head in next 24 hours for stability 3-Will have the patient follow up in the office after discharge - Date & Time Date: 08/01/17 Time: 15:08
--- NOTE | 2017-08-01 18:49 | CARD ---
APPROVED REPORT EXAM: Two-dimensional and M-mode echocardiogram with Doppler and color Doppler. INDICATION CVA/TIA 2D DIMENSIONS Left Atrium (2D)5.0 (1.6-4.0cm)IVSd1.2 (0.7-1.1cm) LVDd5.0 (3.9-5.9cm)PWd1.2 (0.7-1.1cm) LVDs4.4 (2.5-4.0cm)FS (%) 11.9 % LVEF (%)25.6 (>50%) M-Mode DIMENSIONS Aortic Root2.70 (2.2-3.7cm)Aortic Cusp Exc.1.90 (1.5-2.0cm) Aortic Valve AoV Peak Xyhzyhfw66.7cm/Dianne Peak GR.2mmHg Mitral Valve E/A ratio0.0 TDI E/Lateral E'0.0E/Medial E'0.0 Tricuspid Valve TR Peak [id number] [id number] Peak Gr.38mmHg [id number] LEFT VENTRICLE The Left Ventricle is borderline dilated. There is normal left ventricular wall thickness. The systolic function is severely impaired. There is global hypokinesis of the left ventricle. No left ventricle thrombus noted on this study. RIGHT VENTRICLE The right ventricle is normal size. There is normal right ventricular wall thickness. RV Systolic function is severely reduced. ATRIA The left atrium is moderately dilated. The right atrium is moderately dilated. The interatrial septum is intact with no evidence for an atrial septal defect. AORTIC VALVE The aortic valve is mildly thickened. No aortic regurgitation is present. There is no aortic valvular stenosis. MITRAL VALVE The mitral valve is mildly thickened. Mitral regurgitation is mild. TRICUSPID VALVE There is mild tricuspid regurgitation. There is mild to moderate pulmonary hypertension. GREAT VESSELS The aortic root is normal in size. PERICARDIAL EFFUSION There is no pericardial effusion. <Conclusion> The Left Ventricle is borderline dilated. There is normal left ventricular wall thickness. The systolic function is severely impaired. There is global hypokinesis of the left ventricle. No left ventricle thrombus noted on this study. Mitral regurgitation is mild. There is mild tricuspid regurgitation. There is mild to moderate pulmonary hypertension. The interatrial septum is intact with no evidence for an atrial septal defect.
--- NOTE | 2017-08-01 19:23 | PN ---
DATE: 08/01/2017 SUBJECTIVE: Patient was seen early this morning in room 267, bed 2. Patient is in bed, in no acute distress, nontoxic, uneventful night. PHYSICAL EXAMINATION: VITAL SIGNS: Temperature of 98, he has been afebrile now for several days with a heart rate of 98, blood pressure is 140/101, respiratory rate of 20. HEENT: Unremarkable. NECK: Supple. LUNGS: Decreased breath sounds. HEART: Normal S1, S2. ABDOMEN: Soft, nontender. LABORATORY EXAMINATION: Reveals the patient's white count of 6.5, hemoglobin of 11, and platelets of 138. Chemistries reveal creatinine of 1.2. Procalcitonin is 0.05. Serology is noted. Microbiology reveals the blood cultures are negative. Patient had an echo, the results are pending. Dr. Brenton Cummings's consultation is reviewed and Dr. El's note is reviewed. Dr. Quintana's progress note is appreciated. ASSESSMENT AND PLAN: A 71-year-old male who was seen early this morning in room 267, bed 2 with sepsis due to right lower lobe healthcare-associated aspiration pneumonia in a patient with hypertension, chronic obstructive lung disease, atrial fibrillation, throat cancer, dementia, history of cerebrovascular accident in the left frontal lobe, and liver cirrhosis; on vancomycin, cefepime, doxycycline day #3 with negative blood cultures and negative procalcitonin. The vancomycin was discontinued. The patient is on cefepime which will be discontinued within next 24 hours. Patient presenting with a new cerebrovascular accident. We will follow with you. Efra Craig MD
--- NOTE | 2017-08-01 20:31 | PCM.RRT ---
<Grady Cheema - Last Filed: 08/01/17 22:18> MANAGER CIVIL Nurse Assessment - Situation Date: 08/01/17 Time MANAGER CIVIL was called: 20:01 MANAGER CIVIL Responder Arrival Time: 20:05 MANAGER CIVIL Location:: [address] [place] [address] Room Number: [id number] MANAGER CIVIL Reason for Call: Tachycardia MANAGER CIVIL Called By: RN - IV IV Inserted during MANAGER CIVIL?: No - Respiratory Oxygen Delivery Method: Room Air - Medication Medications Administered During MANAGER CIVIL: Cardizem 10 mg IVP - Diagnostic Test Ordered EKG: Yes Chest X-Ray: No CT Scan: No - Stat Labs Ordered MANAGER CIVIL Stat Labs Ordered: CBC, TROPONIN CPR started during MANAGER CIVIL?: No - Vital Signs Vital Sign: Rapid Response Vital Sign Blood Pressure 125/106 Pulse Rate 210 Respiratory Rate 20 Temperature 98.4 F - Finger Stick Blood Glucose Finger Stick Blood Glucose: 110 - Time MANAGER CIVIL Ended Time MANAGER CIVIL Ended: 20:15 - Vital Signs at end of MANAGER CIVIL Vital Signs at end of MANAGER CIVIL: Rapid Response End Vital Sign Blood Pressure 110/70 Pulse Rate 113 Respiratory Rate 20 I.Reason for MANAGER CIVIL - A) Acute Change in Patient: Subjective: Rapid response was called on patient in bed 267-2 at 20:05. Arrived to room at 20:08. Patient lying in hospital bed in no apparent distress. Rapid response was called for elevated heart rate, reported by nursing staff to be 220-230s and irregularly irregular. Patient evaluated in room and found to have BP of 125 /106, Pulse 210 on portable monitor noted to be fluctuating from atrial fibrillation and atrial flutter, SaO2 98% on room air. Bedside EKG was preformed showing irregularly irregular rhythm with elevated heart rate. Patient was given IV cardizem 10mg push, peripheral IV line not intact, IV showed infiltrate, estimated 5mg delivery 5 mg infiltrated. New peripheral IV line insertion was placed on left forearm, 20 gauge. Patient was revaluated and found to have BP was 110/70, Pulse 113, SaO2 97% on room air. CBC, CMP, Mg, Phos and troponin. Patient will remain on telemetry floor for further medical management and observation. - Neurological Status (Select all that apply): Alert, Responsive, Verbal - Respiratory Oxygen Delivery Method: Room Air - Constitutional Appears: Non-toxic, No Acute Distress - Head Head Exam: ATRAUMATIC, NORMAL INSPECTION, NORMOCEPHALIC - Eyes Eye Exam: EOMI, PERRL - Respiratory Exam Respiratory Exam: Clear to Ausculation Bilateral, NORMAL BREATHING PATTERN. absent: Rhonchi, Wheezes - Cardiovascular Exam Cardiovascular Exam: Tachycardia, Irregular Rhythm - GI/Abdominal Exam GI & Abdominal Exam: Soft, Normal Bowel Sounds. absent: Guarding, Rigid, Tenderness - Neurological Exam Neurological Exam: Alert, Awake Additional exam: Residual left sided upper extremity and lower extremity weakness, hx prior CVA - Extremities Exam Extremities Exam: absent: Calf Tenderness, Pedal Edema Plan - Assessment of Findings&Treatment Plan - called for rapid afib - IV cardizem 10mg push administered, peripheral IV line not intact, IV showed infiltrate, estimated 5mg delivery 5 mg infiltrated - f/u labs CBC, CMP, Mg, Phos - Troponin at RR, repeat troponin in AM - Repeat EKG - continue telemetry monitoring <Mai Delvalle - Last Filed: 08/01/17 23:27> MANAGER CIVIL Nurse Assessment - Vital Signs Vital Sign: Rapid Response Vital Sign Blood Pressure 125/106 Pulse Rate 210 Respiratory Rate 20 Temperature 98.4 F - Vital Signs at end of MANAGER CIVIL Vital Signs at end of MANAGER CIVIL: Rapid Response End Vital Sign Blood Pressure 110/70 Pulse Rate 113 Respiratory Rate 20 Attending/Attestation - Attestation I have personally seen and examined this patient.: Yes I have fully participated in the care of the patient.: Yes I have reviewed all pertinent clinical information, including history, physical exam and plan: Yes Notes (Text): 08/01/17 23:26 Agree with documentation and orders placed
[2017-08-01 20:51] LABS: HEMOGLOBIN 11.6 g/dL (14.0-18.0); MEAN CELL VOLUME 86.3 fl (80.0-105.0); MEAN CORPUSCULAR HEMOGLOBIN 27.9 pg (25.0-35.0); MEAN CORPUSCULAR HGB CONC 32.3 g/dl (31.0-37.0); MEAN PLATELET VOLUME 8.8 fl (7.0-11.0); RBC 4.16 10^6/uL (3.5-6.1); RED CELL DISTRIBUTION WIDTH 14.1 % (11.5-14.5)
[2017-08-01 21:08] LABS: TROPONIN I 0.01 ng/mL
[2017-08-01 21:13] LABS: ALB/GLOB RATIO 0.9 (1.1-1.8); ALT/SGPT 31 U/L (7-56); AST/SGOT 40 U/L (17-59); BLOOD UREA NITROGEN 12 mg/dL (7-21); GFR AFRICAN-AMERICAN > 60; GFR NON-AFRICAN AMERICAN > 60
[2017-08-01] MEDS ORDERED: diltiaZEM IVPB 100mg in NS 100 ML IV SCH (22:00)
--- NOTE | 2017-08-01 22:18 | PN ---
DATE: SUBJECTIVE: The patient is seen and examined on the bedside, looking comfortable. No nausea, vomiting or diarrhea. No hematuria or hematochezia. No swelling of the leg. No chest pain, no palpitation. No acute event overnight. Complaining of left-sided upper and lower extremity weakness. The patient failed swallowing evaluation a couple of times. REVIEW OF SYSTEMS: A 12-point review of systems performed and negative other than stated above. PHYSICAL EXAMINATION: VITAL SIGNS: Temperature 98, pulse 105, respirations 18, blood pressure is 141/101, pulse oximetry is 98. HEENT: Head normocephalic, atraumatic. Eyes: PERRLA. Extraocular muscles intact. Conjunctivae clear. Nose patent. Mucous membrane moist. NECK: Supple. No carotid bruit. No JVD or thyromegaly. CHEST: Bilaterally symmetrical. HEART: S1 and S2 positive. LUNGS: Clear to auscultation. ABDOMEN: Soft. Bowel sounds present. No organomegaly. EXTREMITIES: No edema. No cyanosis. NEUROLOGICAL: The patient is awake and alert. Obeying simple order. MEDICATIONS: Tylenol, DuoNeb, Lovenox, doxycycline, dextrose, Maxipime, Lopressor, Protonix. LABORATORY DATA: White blood cell is 6.5, hemoglobin 11.9, hematocrit 37.1, platelets 138. ASSESSMENT AND PLAN: Mr. 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 CAT scan shows occlusion of the left internal carotid artery. Dr. Cummings consulted for any possible neuro intervention. Family is working on getting agreement of percutaneous endoscopic gastrostomy tube placement, n.p.o., failed swallowing evaluation. Magnetic resonance imaging of brain showed acute right hemispheric infarct in middle cerebral artery distribution and mild mass effect and cortical edema. Currently on Lovenox, physical therapy/occupational therapy, last neurology, neurologist on the case. Reviewed Dr. Brenton Cummings's notes, neuro interventionalist. patient is not IV tissue plasminogen activator candidate due to being on Xarelto and outside of time window. Continue current management as per Neurology, according to Dr. Cummings. The patient is seen by Dr. Gene El, customer equipment engineer. History of head and neck tumor status post surgery, dysphagia, aspiration precautions, gastrointestinal and deep venous thrombosis prophylaxis. Repeat labs. We will follow up. Mariana Fernandez MD MTDJaclyn
--- NOTE | 2017-08-01 22:46 | PN ---
DATE: 08/01/2017 PULMONARY PROGRESS NOTE REFERRING PHYSICIAN: Mariana Fernandez MD. SUBJECTIVE: He is lying in the bed, head at 45 degrees. Has some cough. No sputum production. No hemoptysis. No hematemesis. No hematuria. No diarrhea. Failed swallow evaluation. Finally, family agreed for a G-tube placement, will be scheduled for tomorrow. OBJECTIVE: GENERAL: In no acute distress. VITAL SIGNS: Temperature is 98, heart rate is 110, respiratory rate is 20, blood pressure 158/98, pulse ox 98% on room air. HEENT: Moist mucous membrane. Crowded airway. NECK: Supple. No JVD. LUNGS: Have a few scattered rhonchi. HEART: S1, S2. ABDOMEN: Soft, nontender. No organomegaly. EXTREMITIES: There is no edema. NEUROLOGIC: Awake, alert. Follows simple command. MEDICATIONS: He is on IV fluid normal saline 100 mL per hour, doxycycline 100 mg twice a day, nebulizer treatment albuterol/Atrovent q.6 hours, metoprolol tartrate 25 mg twice a day, Lovenox is 30 mg q.12 hours, cefepime 2 g IV q.8 hours, Protonix 40 mg daily and Tylenol p.r.n. basis. LABORATORY DATA: Microbiology, blood culture has been negative. Blood sugar today is 92. He had echocardiogram done today, which shows right ventricular systolic pressure is 48, systolic function is severely impaired of LV, global hypokinesia of the left ventricle. Has moderate pulmonary hypertension. IMPRESSION AND PLAN: Head and neck cancer in the remote past requiring surgery, chronic obstructive lung disease, hypertension, cardiac arrhythmia, history of atrial fibrillation, ischemic stroke, has a severe cardiomyopathy. Need to rule out cardiac thrombus. May need transesophageal echocardiogram. Keep head elevated at 45 degrees. Continue bronchodilator. Keep n.p.o. Scheduled for PEG tube placement. Aspiration precaution. Continue antibiotics. Gastric prophylaxis. Thank you and we will follow with you. Fatoumata Cruz MD
[2017-08-02] MEDS: Albuterol-Ipratrop 3 mg / 0.5 (3 ml) UD IH SCH ×5 (00:57→20:32)
[2017-08-02] MEDS: Dextrose 5%/0.9% NS 1,000 ML IV SCH ×3 (02:10→22:57)
[2017-08-02 06:28] LABS: HEMOGLOBIN 11.8 g/dL (14.0-18.0); MEAN CELL VOLUME 85.8 fl (80.0-105.0); MEAN CORPUSCULAR HEMOGLOBIN 27.5 pg (25.0-35.0); MEAN CORPUSCULAR HGB CONC 32.1 g/dl (31.0-37.0); MEAN PLATELET VOLUME 9.2 fl (7.0-11.0); RBC 4.29 10^6/uL (3.5-6.1); RED CELL DISTRIBUTION WIDTH 14.1 % (11.5-14.5); WHITE BLOOD COUNT 5.2 10^3/ul (4.5-11.0)
[2017-08-02] MEDS: Enoxaparin 30 mg Syringe SC SCH (06:44)
[2017-08-02 06:49] LABS: ALB/GLOB RATIO 0.8 (1.1-1.8); ALT/SGPT 37 U/L (7-56); AST/SGOT 40 U/L (17-59); BLOOD UREA NITROGEN 11 mg/dL (7-21); CALCIUM 8.9 mg/dL (8.4-10.5); GFR AFRICAN-AMERICAN > 60; GFR NON-AFRICAN AMERICAN > 60
[2017-08-02] MEDS: Cefepime IV 2 gm in NS 2 GM/100 ML BAG IVPB SCH ×2 (06:50→14:41)
[2017-08-02 06:56] LABS: TROPONIN I 0.02 ng/mL
[2017-08-02 06:58] LABS: INR 1.29 (0.93-1.08); PROTHROMBIN TIME 14.9 SECONDS (9.4-12.5)
--- NOTE | 2017-08-02 07:49 | CP.PCM.PN ---
Subjective - Date & Time of Evaluation Date of Evaluation: 08/02/17 Time of Evaluation: 07:00 - Subjective Subjective: Neuro progress note: Pt was seen and examined at the bedside. Patient had [employer] overnight for rapid afib placed on cardizem drip. NPO for PEG placement. Pt with L hemineglect and weakness of L sided extremities. Following commands. No complaints. 12 Point ROS performed and neg other than stated above. Objective - Vital Signs/Intake and Output Vital Signs (last 24 hours): Temp Pulse Resp BP Pulse Ox 98.1 F 107 H 18 140/86 94 L 08/02/17 06:00 08/02/17 06:00 08/02/17 06:00 08/02/17 06:00 08/02/17 06:00 Intake and Output: 08/02/17 08/02/17 06:59 18:59 Intake Total 1290 Balance 1290 - Medications Medications: Current Medications Acetaminophen (Tylenol 650 Mg Supp) 650 mg RC Q4H PRN PRN Reason: Fever >100.4 F Last Admin: 07/29/17 06:46 Dose: 650 mg Albuterol/Ipratropium (Duoneb 3 Mg/0.5 Mg (3 Ml) Ud) 3 ml IH [id number] [facility] Last Admin: 08/02/17 01:12 Dose: Not Given Enoxaparin Sodium (Lovenox) 30 mg SC Q12H [facility] PRN Reason: Protocol Last Admin: 08/02/17 06:44 Dose: Not Given Doxycycline Hyclate 100 mg/ (Sodium Chloride) 100 mls @ 100 mls/hr IVPB Q12 [facility] PRN Reason: Protocol Last Admin: 08/01/17 22:45 Dose: 100 mls/hr Dextrose/Sodium Chloride (Dextrose 5%/0.9% Ns 1000 Ml) 1,000 mls @ 100 mls/hr IV .Q10H [facility] Last Admin: 08/02/17 06:43 Dose: Not Given Cefepime HCl (Maxipime 2gm) 2 gm in 100 mls @ 100 mls/hr IVPB Q8 [facility] PRN Reason: Protocol Stop: 08/04/17 16:16 Last Admin: 08/02/17 06:50 Dose: 100 mls/hr diltiaZEM IVPB 100mg in NS (Cardizem 100mg In Ns) 100 mls @ 10 mls/hr IV .Q10H [facility] PRN Reason: 10 MG/HR Last Admin: 08/01/17 22:44 Dose: 10 mls/hr Potassium Chloride (Potassium Chloride 10 Meq/100 Ml) 10 meq in 100 mls @ 50 mls/hr IVPB Q2H [facility] Stop: 08/02/17 11:44 Metoprolol Tartrate (Lopressor) 25 mg PO BRKDIN [facility] Last Admin: 08/02/17 07:28 Dose: Not Given Pantoprazole Sodium (Protonix Inj) 40 mg IVP DAILY [facility] Last Admin: 08/01/17 09:41 Dose: 40 mg - Labs Labs: 08/02/17 06:00 08/02/17 06:00 PT 14.9 SECONDS (9.4-12.5) H 08/02/17 06:00 INR 1.29 (0.93-1.08) H 08/02/17 06:00 APTT 27.3 Seconds (25.1-36.5) 07/28/17 09:50 - Constitutional Appears: No Acute Distress - Eye Exam Eye Exam: EOMI, PERRL Pupil Exam: NORMAL ACCOMODATION - Neurological Exam Neurological Exam: Alert, Awake Neuro motor strength exam: Left Upper Extremity: 2/1, Right Upper Extremity: 5, Left Lower Extremity: 2/1, Right Lower Extremity: 4 Assessment and Plan - Assessment and Plan (Free Text) Assessment: 71 M with acute R hemispheric infarct in MCA distribution, mild mass effect and cortical edema; and Left ICA occlusion. - Plan for PEG placement today - CTA showed occlusion of Left ICA - Dr Joya consulted for any possible neurointervention - CT head for checking stability, - Follow up as outpatient - MRI brain shows acute R hemispheric infarct in MCA distribution, mild mass effect and cortical edema - F/u MRA head and neck reviewed - Left ICA stenosis and diminished flow in L MCA - Echo with bubble study - neg for PFO - Currently on lovenox 30mg Q12 - Hold - Maintain BP control with systolic <160 - PT and OT; Speech eval case and plan was reviewed and discussed with Dr Quintana.
--- NOTE | 2017-08-02 08:43 | CP.PCM.PN ---
<LópezBrittany - Last Filed: 08/02/17 18:47> Subjective - Date & Time of Evaluation Date of Evaluation: 08/02/17 Time of Evaluation: 07:00 - Subjective Subjective: GI Fellow PGY4 Progress Note Pt seen and evaluated at bedside, pt with no complaints, denies CP or SOB. Overnight pt went into Afib/Aflutter HR 200s, started on Cardizem drip. Pt's electrolytes low including K+ and Mag+. Pt then had a 2.36sec pause and cardizem drip was held. ROS: A 12pt ROS was negative except as above Objective - Vital Signs/Intake and Output Vital Signs (last 24 hours): Temp Pulse Resp BP Pulse Ox 98.1 F 107 H 18 140/86 94 L 08/02/17 06:00 08/02/17 06:00 08/02/17 06:00 08/02/17 06:00 08/02/17 06:00 Intake and Output: 08/02/17 08/02/17 06:59 18:59 Intake Total 1290 Balance 1290 - Medications Medications: Current Medications Acetaminophen (Tylenol 650 Mg Supp) 650 mg RC Q4H PRN PRN Reason: Fever >100.4 F Last Admin: 07/29/17 06:46 Dose: 650 mg Albuterol/Ipratropium (Duoneb 3 Mg/0.5 Mg (3 Ml) Ud) 3 ml IH [id number] [facility] Last Admin: 08/02/17 07:48 Dose: 3 ml Enoxaparin Sodium (Lovenox) 30 mg SC Q12H [facility] PRN Reason: Protocol Last Admin: 08/02/17 06:44 Dose: Not Given Doxycycline Hyclate 100 mg/ (Sodium Chloride) 100 mls @ 100 mls/hr IVPB Q12 [facility] PRN Reason: Protocol Last Admin: 08/01/17 22:45 Dose: 100 mls/hr Dextrose/Sodium Chloride (Dextrose 5%/0.9% Ns 1000 Ml) 1,000 mls @ 100 mls/hr IV .Q10H [facility] Last Admin: 08/02/17 06:43 Dose: Not Given Cefepime HCl (Maxipime 2gm) 2 gm in 100 mls @ 100 mls/hr IVPB Q8 [facility] PRN Reason: Protocol Stop: 08/04/17 16:16 Last Admin: 08/02/17 06:50 Dose: 100 mls/hr diltiaZEM IVPB 100mg in NS (Cardizem 100mg In Ns) 100 mls @ 10 mls/hr IV .Q10H [facility] PRN Reason: 10 MG/HR Last Admin: 08/01/17 22:44 Dose: 10 mls/hr Potassium Chloride (Potassium Chloride 10 Meq/100 Ml) 10 meq in 100 mls @ 50 mls/hr IVPB Q2H [facility] Stop: 08/02/17 11:44 Last Admin: 08/02/17 07:54 Dose: 50 mls/hr Metoprolol Tartrate (Lopressor) 25 mg PO BRKDIN [facility] Last Admin: 08/02/17 07:28 Dose: Not Given Pantoprazole Sodium (Protonix Inj) 40 mg IVP DAILY [facility] Last Admin: 08/01/17 09:41 Dose: 40 mg - Labs Labs: 08/02/17 06:00 08/02/17 06:00 PT 14.9 SECONDS (9.4-12.5) H 08/02/17 06:00 INR 1.29 (0.93-1.08) H 08/02/17 06:00 APTT 27.3 Seconds (25.1-36.5) 07/28/17 09:50 - Constitutional Appears: Non-toxic, No Acute Distress - Head Exam Head Exam: ATRAUMATIC, NORMAL INSPECTION, NORMOCEPHALIC - Eye Exam Eye Exam: EOMI, Normal appearance Pupil Exam: PERRL - ENT Exam ENT Exam: Mucous Membranes Dry - Neck Exam Neck Exam: Full ROM - Respiratory Exam Respiratory Exam: Clear to Ausculation Bilateral, NORMAL BREATHING PATTERN - Cardiovascular Exam Cardiovascular Exam: Tachycardia, Irregular Rhythm - GI/Abdominal Exam GI & Abdominal Exam: Soft, Normal Bowel Sounds. absent: Distended, Rigid, Tenderness - Extremities Exam Extremities Exam: Full ROM, Normal Inspection - Back Exam Back Exam: NORMAL INSPECTION - Neurological Exam Neurological Exam: Alert, Awake - Psychiatric Exam Psychiatric exam: Normal Affect, Normal Mood - Skin Skin Exam: Dry, Intact, Normal Color, Warm Assessment and Plan - Assessment and Plan (Free Text) Assessment: This is a 71M w. hx of neck cancer s/p radiation and resection, CVA, dementia who presents to the hospital with new CVA. GI evaluation for Dyphagia and possible PEG 1. Dysphagia, likely 2/2 CVA 2. Poor oral intake 3. Dementia 4. Hx of neck cancer s/p radiation and resection 5. CHF/Afib/Aflutter 6. CVA Plan: -Pt with cardiac issues at this time with irregular HR, afib/aflutter on cardizem drip -2d echo reviewed with EF 25% -Recommend to replete electrolytes with low K+ and Mag+ levels -Recommend cardiac optimization prior to any endoscopic PEG placement -Recommend starting PPN as pt has not been receiving any nutrition for days and will hold off on PEG with current cardiac events -Keep NPO for now due to strict aspiration precautions -Please call for PEG once pt has been medically optimized and cardiac clearance for endoscopic procedure <Sourav Goncalves - Last Filed: 08/02/17 19:06> Objective - Vital Signs/Intake and Output Vital Signs (last 24 hours): Temp Pulse Resp BP Pulse Ox 98.4 F 109 H 19 171/94 H 100 08/02/17 18:16 08/02/17 18:16 08/02/17 18:16 08/02/17 18:16 08/02/17 18:16 - Medications Medications: Current Medications Acetaminophen (Tylenol 650 Mg Supp) 650 mg RC Q4H PRN PRN Reason: Fever >100.4 F Last Admin: 07/29/17 06:46 Dose: 650 mg Albuterol/Ipratropium (Duoneb 3 Mg/0.5 Mg (3 Ml) Ud) 3 ml IH [id number] [facility] Last Admin: 08/02/17 14:01 Dose: 3 ml Doxycycline Hyclate 100 mg/ (Sodium Chloride) 100 mls @ 100 mls/hr IVPB Q12 [facility] PRN Reason: Protocol Last Admin: 08/02/17 09:46 Dose: 100 mls/hr Dextrose/Sodium Chloride (Dextrose 5%/0.9% Ns 1000 Ml) 1,000 mls @ 100 mls/hr IV .Q10H [facility] Last Admin: 08/02/17 06:43 Dose: Not Given Cefepime HCl (Maxipime 2gm) 2 gm in 100 mls @ 100 mls/hr IVPB Q8 [facility] PRN Reason: Protocol Stop: 08/04/17 16:16 Last Admin: 08/02/17 14:41 Dose: 100 mls/hr diltiaZEM IVPB 100mg in NS (Cardizem 100mg In Ns) 100 mls @ 10 mls/hr IV .Q10H [facility] PRN Reason: 10 MG/HR Last Admin: 08/01/17 22:44 Dose: 10 mls/hr Metoprolol Tartrate (Lopressor) 25 mg PO BRKDIN [facility] Last Admin: 08/02/17 17:12 Dose: Not Given Pantoprazole Sodium (Protonix Inj) 40 mg IVP DAILY [facility] Last Admin: 08/02/17 09:46 Dose: 40 mg - Labs Labs: 08/02/17 06:00 08/02/17 06:00 PT 14.9 SECONDS (9.4-12.5) H 08/02/17 06:00 INR 1.29 (0.93-1.08) H 08/02/17 06:00 APTT 27.3 Seconds (25.1-36.5) 07/28/17 09:50 Attending/Attestation - Attestation I have personally seen and examined this patient.: Yes I have fully participated in the care of the patient.: Yes I have reviewed all pertinent clinical information, including history, physical exam and plan: Yes Notes (Text): 08/02/17 19:00 Patient seen with GI fellow earlier this am. This is a 71 yr old M with history of neck cancer s/p radiation and resection, CVA, dementia who presents to the hospital with new CVA. GI evaluation for requested for dysphagia and possible PEG. He was scheduled for this am but had [employer] last night for new onset arrythmia. On cardiazem drip today. Due to new onset of cardiac issues at this time with irregular HR, afib/aflutter on cardizem drip will reschedule PEG once acute issues have subsided and cardiology cleared the patient for anesthesia. Recommend to replete electrolytes with low K+ and Mag+ levels. Start PPN for nutrition. Please reconsult prn
[2017-08-02] MEDS ORDERED: Magnesium Sulfate 2 GM in Sodium Chloride 0.9% 100 ML IVPB ONE (09:41)
--- NOTE | 2017-08-02 14:49 | CP.PCM.PN ---
<Iesha Ramos - Last Filed: 08/02/17 14:46> Subjective - Date & Time of Evaluation Date of Evaluation: 08/02/17 Time of Evaluation: 12:00 - Subjective Subjective: Chief complaint: AMS, dysphagia, Afib/Aflutter w. pauses 72 yr male with history of Afib (on Xarelto), HTN, COPD, throat cancer (s/p radiation), cirrhosis, Dementia and TIA (R sided weakness). Pt admitted to [facility] for AMS, slurred speech and new L onset sided weakness. Pt was found to have acute R hemispheric infarct with occlusion of L internal carotid. R lower lobe atelectasis/peumonia also being treated. Rapid response team called for acute Afib/Aflutter on 08/01. Pt stablized w/ IV cardizem, however , occassional pauses noted. Today, pt seen at bedside on his birthday. He is confused and a poor historian. Denies any shortness of breath, chest pain, headache, fever, chills, diarrhea, constipation, paraesthesias, or urinary changes. Objective - Vital Signs/Intake and Output Vital Signs (last 24 hours): Temp Pulse Resp BP Pulse Ox 98.3 F 109 H 20 148/103 H 94 L 08/02/17 12:00 08/02/17 12:00 08/02/17 12:00 08/02/17 12:00 08/02/17 06:00 Intake and Output: 08/02/17 08/02/17 06:59 18:59 Intake Total 1290 Balance 1290 - Medications Medications: Current Medications Acetaminophen (Tylenol 650 Mg Supp) 650 mg RC Q4H PRN PRN Reason: Fever >100.4 F Last Admin: 07/29/17 06:46 Dose: 650 mg Albuterol/Ipratropium (Duoneb 3 Mg/0.5 Mg (3 Ml) Ud) 3 ml IH [id number] HEIDE Last Admin: 08/02/17 14:01 Dose: 3 ml Doxycycline Hyclate 100 mg/ (Sodium Chloride) 100 mls @ 100 mls/hr IVPB Q12 HEIDE PRN Reason: Protocol Last Admin: 08/02/17 09:46 Dose: 100 mls/hr Dextrose/Sodium Chloride (Dextrose 5%/0.9% Ns 1000 Ml) 1,000 mls @ 100 mls/hr IV .Q10H [facility] Last Admin: 08/02/17 06:43 Dose: Not Given Cefepime HCl (Maxipime 2gm) 2 gm in 100 mls @ 100 mls/hr IVPB Q8 HEIDE PRN Reason: Protocol Stop: 08/04/17 16:16 Last Admin: 08/02/17 06:50 Dose: 100 mls/hr diltiaZEM IVPB 100mg in NS (Cardizem 100mg In Ns) 100 mls @ 10 mls/hr IV .Q10H HEIDE PRN Reason: 10 MG/HR Last Admin: 08/01/17 22:44 Dose: 10 mls/hr Metoprolol Tartrate (Lopressor) 25 mg PO BRKDIN [facility] Last Admin: 08/02/17 07:28 Dose: Not Given Pantoprazole Sodium (Protonix Inj) 40 mg IVP DAILY [facility] Last Admin: 08/02/17 09:46 Dose: 40 mg - Labs Labs: 08/02/17 06:00 08/02/17 06:00 PT 14.9 SECONDS (9.4-12.5) H 08/02/17 06:00 INR 1.29 (0.93-1.08) H 08/02/17 06:00 APTT 27.3 Seconds (25.1-36.5) 07/28/17 09:50 - Constitutional Appears: No Acute Distress, Chronically Ill - Head Exam Additional comments: L facial droop - Eye Exam Eye Exam: EOMI, Normal appearance, PERRL Pupil Exam: NORMAL ACCOMODATION, PERRL - ENT Exam ENT Exam: Mucous Membranes Dry - Neck Exam Neck Exam: Normal Inspection - Respiratory Exam Respiratory Exam: Clear to Ausculation Bilateral, NORMAL BREATHING PATTERN - Cardiovascular Exam Cardiovascular Exam: Tachycardia, Irregular Rhythm - GI/Abdominal Exam GI & Abdominal Exam: Soft, Normal Bowel Sounds. absent: Tenderness - Extremities Exam Extremities Exam: Pedal Edema Additional comments: L leg hemiplagia, L arm weakness R leg, R arm weakness - Neurological Exam Neurological Exam: Alert, Awake - Psychiatric Exam Psychiatric exam: Normal Affect, Normal Mood - Skin Skin Exam: Dry, Normal Color, Warm Assessment and Plan (1) Malnutrition Status: Acute (2) Pulmonary hypertension Status: Acute (3) Atrial fibrillation and flutter Status: Acute (4) Systolic dysfunction with heart failure Status: Acute (5) Anemia Status: Acute (6) Pneumonia Status: Acute (7) Congestive heart failure Status: Acute (8) Pleural effusion Status: Acute (9) Right hemisphere, cerebral infarction Status: Acute (10) Facial droop as late effect of cerebrovascular accident (CVA) Status: Acute (11) Aspiration into lower respiratory tract Status: Acute (12) Cancer of neck Status: Acute (13) Head and neck malignancy Status: Acute (14) Ischemic stroke Status: Acute (15) Oropharyngeal aspiration Status: Acute - Assessment and Plan (Free Text) Plan: Aspiration precautions. Pt failed swallow eval x2, continue NPO diet, recommend TPN. Possible PEG tube placement pending clearance by Cardio. IV cardizem drip. For pneumonia: PO doxycyline. IV cefepime. Blood cultures NEGATIVE. VTE/ GI prophlyaxis. PT/OT on board. Consults: Neuro - Dr. Nolasco Neuro - Dr. Pak GI - Dr. El ENT - Dr. Howard ID - Dr. Craig Pulmo - Dr. Cruz Reviewed: ECHO = LVEF 25.6% systolic function severely impaired, mild to mod pulmonary hypertension CXR = R lower lobe atelectasis/peumonia, mild congestive heart failure, with bilateral pleural effusions larger on R. CT head = WNL CT head/neck = occlusion of L internal carotid MRI brain = acute R hemispheric infarct in the distribution of the middle cerebral artery. mild amount of mass effect with cortical; edema & effacement of sulci MRA head = occlusion of L internal carotid artery w diminished flow in <Mariana Fernandez - Last Filed: 08/03/17 22:19> Objective - Vital Signs/Intake and Output Vital Signs (last 24 hours): Temp Pulse Resp BP Pulse Ox 98.4 F 109 H 20 164/94 H 98 08/03/17 17:23 08/03/17 18:00 08/03/17 17:23 08/03/17 17:53 08/03/17 12:35 Intake and Output: 08/03/17 08/04/17 18:59 06:59 Intake Total 1200 Balance 1200 - Medications Medications: Current Medications Acetaminophen (Tylenol 650 Mg Supp) 650 mg RC Q4H PRN PRN Reason: Fever >100.4 F Last Admin: 07/29/17 06:46 Dose: 650 mg Albuterol/Ipratropium (Duoneb 3 Mg/0.5 Mg (3 Ml) Ud) 3 ml IH [id number] [facility] Last Admin: 08/03/17 14:03 Dose: 3 ml Hydralazine HCl (Apresoline) 10 mg IVP Q6 PRN PRN Reason: for SBP>170 Last Admin: 08/03/17 17:53 Dose: 10 mg Dextrose/Sodium Chloride (Dextrose 5%/0.9% Ns 1000 Ml) 1,000 mls @ 50 mls/hr IV .Q20H [facility] Last Admin: 08/03/17 18:45 Dose: 50 mls/hr diltiaZEM IVPB 100mg in NS (Cardizem 100mg In Ns) 100 mls @ 10 mls/hr IV .Q10H [facility] PRN Reason: 10 MG/HR Last Admin: 08/03/17 21:49 Dose: 10 mls/hr Cefazolin Sodium (Ancef 1gm In Ns) 1 gm in 100 mls @ 100 mls/hr IVPB Q8 [facility] Last Admin: 08/03/17 21:50 Dose: 100 mls/hr Metoprolol Tartrate (Lopressor) 25 mg PO BRKDIN [facility] Last Admin: 08/03/17 17:49 Dose: Not Given Pantoprazole Sodium (Protonix Inj) 40 mg IVP DAILY [facility] Last Admin: 08/03/17 10:10 Dose: Not Given - Labs Labs: 08/03/17 05:00 08/03/17 05:30 PT 14.2 SECONDS (9.4-12.5) H 08/03/17 05:30 INR 1.23 (0.93-1.08) H 08/03/17 05:30 APTT 27.3 Seconds (25.1-36.5) 07/28/17 09:50 Assessment and Plan - Assessment and Plan (Free Text) Plan: 72 yr male with history of Afib (on Xarelto), HTN, COPD, throat cancer (s/p radiation), cirrhosis, Dementia and TIA (R sided weakness). Pt admitted to [facility] for AMS, slurred speech and new L onset sided weakness. Pt was found to have acute R hemispheric infarct with occlusion of L internal carotid. R lower lobe atelectasis/peumonia also being treated. Rapid response team called for acute Afib/Aflutter on 08/01. Pt stablized w/ IV cardizem, however , occassional pauses noted. Today, pt seen at bedside on his birthday. He is confused and a poor historian. Denies any shortness of breath, chest pain, headache, fever, chills, diarrhea, constipation, paraesthesias, or urinary changes.agreed all above . chart , meds and labs noted . d/d with structurer , will f/u
--- NOTE | 2017-08-02 17:19 | CARD ---
APPROVED REPORT EKG Measurement Heart [id number] <Conclusion> A Fib with RVR Nonspecific ST and T wave abnormality Abnormal ECG
--- NOTE | 2017-08-02 17:21 | CARD ---
APPROVED REPORT EKG Measurement Heart [id number] <Conclusion> A Fib with RVR Marked ST abnormality, possible inferolateral subendocardial injury Abnormal ECG
--- NOTE | 2017-08-02 19:14 | CON ---
DATE: CARDIOLOGY CONSULTATION REASON FOR CONSULTATION AND FOLLOWUP: Tachybrady syndrome, atrial fibrillation, sick sinus syndrome, rule out need for pacemaker. BRIEF CLINICAL HISTORY: A 72-year-old male with past medical history significant for atrial fibrillation, on Xarelto; hypertension; COPD; throat cancer; cirrhosis; dementia; TIA; right-sided weakness; who admitted initially on 07/28/2017. Since then, patient has multiple times pauses more than 3 second pauses, 3.5 on 07/28, 3.6 on 07/29, and 4 second 07/31. Yesterday, last night, patient had a rapid response because the heart rate went to 220. Cardizem bolus was given and drip started. At 2 a.m., patient's heart rate dropped to 40 with 2.5 seconds, it was discontinued. Patient denies any chest pain, shortness of breath, or any palpitation. Currently, patient is off Cardizem, heart rate in the 80, atrial fibrillation. PAST MEDICAL HISTORY: Significant for cardiomyopathy, hypertension, throat CA 15 years ago, radical neck dissection, dementia, multiple skin ulcers and laceration, history of CVA, swallowing difficulty, awaiting for placement of PEG and scheduled for today. SOCIAL HISTORY: Active smoker. No history of alcohol abuse. FAMILY HISTORY: Noncontributory. ALLERGIES: NO KNOWN DRUG ALLERGY. CURRENT MEDICATIONS: Patient is strict n.p.o., was on IV Cardizem last night, was held because of the bradycardia. Currently, not on medication except IV fluid. REVIEW OF SYSTEMS: As per HPI. PHYSICAL EXAMINATION: As follows: VITAL SIGNS: Temperature afebrile, heart rate 86, blood pressure 140/86. HEENT: PERRLA. Extraocular muscles intact. NECK: Supple. No carotid bruit or thyromegaly. CHEST: Clear to auscultation. HEART: S1 and S2, regular. ABDOMEN: Soft. EXTREMITIES: Clubbing and cyanosis negative. PREVIOUS MEDICATION: Patient told the patient was on Xarelto at home for atrial fibrillation. PREVIOUS CARDIAC WORKUP: As follows: Patient's echocardiography on 02/09/2017, that showed ejection fraction 20% to 25%, mild mitral regurgitation, [id number] tricuspid regurgitation, RV systolic pressure of 31. IVC dilated more than 50% on restricted mode in inspiration. No pericardial effusion. No thrombus or vegetation noted. History of atrial fibrillation, on Xarelto, on previous admission dated 02/07/2017. History of MCA territory infarct in the past and history of dementia. History of metoprolol on the previous admission. IMPRESSION: A 72-year-old male with past medical history significant for chronic atrial fibrillation, now admitted with history of cerebrovascular accident in the past with history of residual abnormality, atrial fibrillation on Xarelto in the past, cardiomyopathy, and the patient is on Xarelto since 2016 as per the old medical record. History of last echo showed ejection fraction 25%, mitral regurgitation, tricuspid regurgitation. Currently, patient is having tachybrady syndrome, sick sinus syndrome. Since admission, patient on 07/28, had multiple pauses; on 07/28, 3-second pause, on 07/29, 3.2-second pause and 4-second pause; last night, 2.5-second pause. So in view of above, we will cancel PEG placement and we will do a pacemaker tomorrow. We will discuss with daughter, Marcia and if they agree, we will proceed for implantation of the pacemaker. We will hold Lovenox and once the pacemaker was placed, patient needs PEG placement for feeding and medication p.o. We will keep off Cardizem drip and if the heart rate goes back again, we will start at 5 mg per hour. We will follow with you. We will stop Lovenox also for preparation of the pacemaker, off Xarelto since yesterday. Thank you, Dr. Fernandez for providing me the opportunity in taking care of the patient, Geo Ewing. Fatoumata Huynh MD
--- NOTE | 2017-08-02 20:42 | PN ---
DATE: PULMONARY PROGRESS NOTE REFERRING PHYSICIAN: Mariana Fernandez MD. SUBJECTIVE: He is lying in the bed, head at 45 degrees. Night was unremarkable. Not much cough. No sputum production. No hemoptysis, no hematemesis, no hematuria, no diarrhea reported. He is n.p.o. PHYSICAL EXAMINATION: GENERAL: In no acute distress. VITAL SIGNS: Temperature is 98, heart rate is 109, respiratory rate is 20, blood pressure 148/103, pulse ox 94% on room air. HEENT: Moist mucous membrane. Crowded airway. NECK: Supple. No JVD. LUNGS: Have a few scattered rhonchi. HEART: S1, S2. ABDOMEN: Soft, nontender. No organomegaly. EXTREMITIES: No edema. NEUROLOGIC: Awake, alert, follows simple commands. MEDICATIONS: He is on diltiazem IV drip, doxycycline 100 mg twice a day, albuterol/Atrovent nebulizer q.6 hours, metoprolol tartrate 25 mg twice a day, cefepime 2 g IV q.8 hours, Protonix 40 mg daily, Tylenol p.r.n. basis. LABORATORY DATA: Shows hemoglobin 11.8, hematocrit 36.8, WBC 5.2, platelet is 154; INR 1.29. Sodium 139, potassium 2.1, chloride 110, bicarbonate 21, BUN 11, creatinine 1.0, glucose is 90, calcium is 8.9, magnesium 1.5. AST 40, ALT 37, alkaline phosphatase is 41. Albumin is 3.0. Microbiology: Blood culture has been negative. IMPRESSION AND PLAN: Status post acute stroke with oropharyngeal dysphagia, history of head and neck cancer in the remote past, hypertension, cardiac arrhythmia, atrial fibrillation, has severe cardiomyopathy. Rapid response was called yesterday evening because of atrial fibrillation with rapid ventricular response and patient was placed on Cardizem, could not give p.o. beta-yessenia because of n.p.o. Awaiting gastrostomy tube placement. Continue antibiotics, head at 45 degrees, bronchodilators, gastric prophylaxis, anticoagulation when cleared by Neurology. Until then, try to keep rate control of atrial fibrillation. Thank you and we will follow with you. Fatoumata Cruz MD [facility] # [id number]
--- NOTE | 2017-08-02 23:42 | CP.PCM.PN ---
Subjective - Date & Time of Evaluation Date of Evaluation: 08/02/17 Time of Evaluation: 14:00 - Subjective Subjective: Patient seen and examined doing well. Events noted. Patient is a poor historian. Denies pain. Objective - Vital Signs/Intake and Output Vital Signs (last 24 hours): Temp Pulse Resp BP Pulse Ox 98.4 F 109 H 19 171/94 H 100 08/02/17 18:16 08/02/17 18:16 08/02/17 18:16 08/02/17 18:16 08/02/17 18:16 - Medications Medications: Current Medications Acetaminophen (Tylenol 650 Mg Supp) 650 mg RC Q4H PRN PRN Reason: Fever >100.4 F Last Admin: 07/29/17 06:46 Dose: 650 mg Albuterol/Ipratropium (Duoneb 3 Mg/0.5 Mg (3 Ml) Ud) 3 ml IH [id number] [facility] Last Admin: 08/02/17 20:32 Dose: 3 ml Dextrose/Sodium Chloride (Dextrose 5%/0.9% Ns 1000 Ml) 1,000 mls @ 100 mls/hr IV .Q10H [facility] Last Admin: 08/02/17 22:57 Dose: 100 mls/hr diltiaZEM IVPB 100mg in NS (Cardizem 100mg In Ns) 100 mls @ 10 mls/hr IV .Q10H [facility] PRN Reason: 10 MG/HR Last Admin: 08/01/17 22:44 Dose: 10 mls/hr Metoprolol Tartrate (Lopressor) 25 mg PO BRKDIN [facility] Last Admin: 08/02/17 17:12 Dose: Not Given Pantoprazole Sodium (Protonix Inj) 40 mg IVP DAILY [facility] Last Admin: 08/02/17 09:46 Dose: 40 mg - Labs Labs: 08/02/17 06:00 08/02/17 06:00 PT 14.9 SECONDS (9.4-12.5) H 08/02/17 06:00 INR 1.29 (0.93-1.08) H 08/02/17 06:00 APTT 27.3 Seconds (25.1-36.5) 07/28/17 09:50 - Constitutional Appears: Well, Non-toxic, No Acute Distress - Head Exam Head Exam: ATRAUMATIC, NORMAL INSPECTION, NORMOCEPHALIC - Eye Exam Eye Exam: Normal appearance - ENT Exam ENT Exam: Mucous Membranes Dry, Normal Exam, Normal External Ear Exam, Normal Oropharynx. absent: Mucous Membranes Moist - Neck Exam Neck Exam: Normal Inspection. absent: Full ROM, Lymphadenopathy, Meningismus, Tenderness, Thyromegaly - Respiratory Exam Respiratory Exam: NORMAL BREATHING PATTERN - Skin Skin Exam: Normal Color Assessment and Plan (1) Ischemic stroke Status: Acute (2) Transient ischemic attack (TIA) Status: Acute (3) Oropharyngeal aspiration Status: Acute (4) Oropharyngeal dysphagia Status: Acute (5) Other voice and resonance disorders Status: Acute (6) Cancer of neck Status: Acute (7) Head and neck malignancy Status: Acute (8) Aspiration into lower respiratory tract Status: Acute (9) Facial droop as late effect of cerebrovascular accident (CVA) Status: Acute - Assessment and Plan (Free Text) Assessment: Assessment As Above Plan: Continue with your GI, Neurology and medical management of the is patient.
--- NOTE | 2017-08-03 00:07 | PN ---
DATE: SUBJECTIVE: Patient is in bed, in no acute distress, nontoxic. PHYSICAL EXAMINATION: VITAL SIGNS: Temperature is 98, blood pressure is 170/90, respiratory rate of 18. HEENT: Unremarkable. NECK: Supple. LUNGS: Have decreased breath sounds. HEART: Normal S1, S2. ABDOMEN: Soft. LABORATORY DATA: Reveals the patient's white count is 5.2, hemoglobin of 11. Chemistries reveal a BUN of 11, creatinine of 1.0. Patient had a rapid response, report is reviewed which was written by Dr. Delvalle. ASSESSMENT AND PLAN: He is a 72-year-old male who was seen early this morning in room 267 with sepsis, right lower lobe healthcare-associated pneumonia, hypertension, chronic obstructive lung disease, history of cerebrovascular accident, throat cancer, dementia, chronic obstructive pulmonary disease, atrial fibrillation, hypertension, liver cirrhosis, and received vancomycin, cefepime, and doxycycline; today is day number 4. Vancomycin was discontinued. Cultures negative. Influenza negative. Procalcitonin is negative. We will discontinue the IV cefepime and IV doxycycline. Dr. Curz's note is reviewed. We will follow closely with you. Patient is at very high risk of developing nosocomial infections as completed the antibiotic therapy. Patient's x-ray, which was done on 07/28/2017 is noted. Moderate airspace disease, mild pulmonary congestion. Efra Craig MD
[2017-08-03] MEDS: Albuterol-Ipratrop 3 mg / 0.5 (3 ml) UD IH SCH ×4 (01:06→22:49)
[2017-08-03] MEDS ORDERED: Levalbuterol 0.63 MG/3 ML Inhal Soln UD IH STA (01:35)
--- NOTE | 2017-08-03 03:34 | PCM.RRT ---
IVF EMBRYOLOGIST Nurse Assessment - Situation Date: 08/03/17 Time IVF EMBRYOLOGIST was called: 01:25 IVF EMBRYOLOGIST Responder Arrival Time: 01:27 IVF EMBRYOLOGIST Location:: [address] [place] [address] Room Number: 267-2 IVF EMBRYOLOGIST Reason for Call: Tachycardia IVF EMBRYOLOGIST Called By: RN - IV IV Inserted during IVF EMBRYOLOGIST?: No - Respiratory Oxygen Delivery Method: Room Air Received Nebulizer Treatments:: Yes Was the Patient Ventilated with Bag/Mask 100% O2?: No Secretions Suctioned?: No Was the Patient Intubated?: No Was the Patient Placed on a Ventilator?: No - Medication Medications Administered During IVF EMBRYOLOGIST: Cardizem 10 mg IVP - Diagnostic Test Ordered EKG: Yes Chest X-Ray: No CT Scan: No - Stat Labs Ordered IVF EMBRYOLOGIST Stat Labs Ordered: CBC, TROPONIN CPR started during IVF EMBRYOLOGIST?: No - Vital Signs Vital Sign: Rapid Response Vital Sign Blood Pressure 157/108 Pulse Rate 217 Respiratory Rate 20 Temperature 98.6 F - Finger Stick Blood Glucose Finger Stick Blood Glucose: 96 - Time IVF EMBRYOLOGIST Ended Time IVF EMBRYOLOGIST Ended: 01:37 - Vital Signs at end of IVF EMBRYOLOGIST Vital Signs at end of IVF EMBRYOLOGIST: Rapid Response End Vital Sign Blood Pressure 164/108 Pulse Rate 116 Respiratory Rate 20 I.Reason for IVF EMBRYOLOGIST - A) Acute Change in Patient: Subjective: Rapid response was called on patient for elevated heart rate reported to be 210- 220 with rhythm strip suggesting SVT. Rapid response team arrived at patient bedside and evaluated patient. Patient was noted to be resting comfortably. Patient vital signs were taken and noted to be BP 164/108, heart rate of 116, RR of 20. At time of arrival patient rhythm was checked with bedside precast molder and showed irregular heart rate of 105-115. Patient reported no symptoms of chest discomfort, shortness of breath, nausea, vomiting. Verbal orders given to nursing staff for 5mg IV Cardizem push prn SVT HR>150, Xopenox, CMP, Mg, Phos. - Respiratory Oxygen Delivery Method: Room Air - Constitutional Appears: Non-toxic - Head Head Exam: ATRAUMATIC, NORMAL INSPECTION, NORMOCEPHALIC - Eyes Eye Exam: EOMI - Respiratory Exam Respiratory Exam: Clear to Ausculation Bilateral, NORMAL BREATHING PATTERN. absent: Rhonchi, Wheezes - Cardiovascular Exam Cardiovascular Exam: Irregular Rhythm, +S1, +S2 - GI/Abdominal Exam GI & Abdominal Exam: Soft, Normal Bowel Sounds. absent: Tenderness - Neurological Exam Neurological Exam: Alert, Awake, Oriented x3 - Extremities Exam Extremities Exam: Normal Inspection. absent: Calf Tenderness Plan - Assessment of Findings&Treatment Plan - CBC, Mg, Phos - Cardizem 5mg IV push prn SVT, heart rate >150 - Xopenex tx - f/u electrolytes
[2017-08-03 06:34] LABS: HEMOGLOBIN 12.4 g/dL (14.0-18.0); MEAN CELL VOLUME 85.7 fl (80.0-105.0); MEAN CORPUSCULAR HEMOGLOBIN 27.6 pg (25.0-35.0); MEAN CORPUSCULAR HGB CONC 32.2 g/dl (31.0-37.0); RBC 4.49 10^6/uL (3.5-6.1); RED CELL DISTRIBUTION WIDTH 14.1 % (11.5-14.5); WHITE BLOOD COUNT 5.3 10^3/ul (4.5-11.0)
[2017-08-03 06:57] LABS: INR 1.23 (0.93-1.08); PROTHROMBIN TIME 14.2 SECONDS (9.4-12.5)
[2017-08-03 07:15] LABS: ALB/GLOB RATIO 0.9 (1.1-1.8); ALBUMIN 3.2 g/dL (3.0-4.8); ALT/SGPT 37 U/L (7-56); AST/SGOT 41 U/L (17-59); BLOOD UREA NITROGEN 9 mg/dL (7-21); CALCIUM 9.1 mg/dL (8.4-10.5); GFR AFRICAN-AMERICAN > 60; GFR NON-AFRICAN AMERICAN > 60
--- NOTE | 2017-08-03 08:51 | CT ---
PROCEDURE: CT HEAD WITHOUT CONTRAST. HISTORY: Check stability of stroke COMPARISON: MRI brain without contrast from 07/30/2017. TECHNIQUE: Axial computed tomography images were obtained through the head/brain without intravenous contrast. Radiation dose: Total exam DLP = 918.20 mGy-cm. This CT exam was performed using one or more of the following dose reduction techniques: Automated exposure control, adjustment of the mA and/or kV according to patient size, and/or use of iterative reconstruction technique. FINDINGS: HEMORRHAGE: No intracranial hemorrhage. BRAIN: There is redemonstration of multifocal large low-attenuation areas in the right frontal and parietal lobes with mild associated edema and mass effect on the right lateral ventricle and 5 mm midline shift from right to left. There is cystic encephalomalacia in the left anterior parietal lobe. There are coarse atherosclerotic calcifications in the cavernous carotid arteries. There is no mass or extra-axial fluid collection. VENTRICLES: There is moderate age-related global parenchymal volume loss and proportionate enlargement of the ventricles and cortical sulci CALVARIUM: The skull base and calvarium are normal. PARANASAL SINUSES: Predominantly clear. MASTOID AIR CELLS: Predominantly clear. OTHER FINDINGS: None. IMPRESSION: No acute intracranial abnormality. Redemonstration of evolving large subacute right ALEXANDRE and MCA territory infarctions involving the frontal and parietal lobes with associated edema, regional mass effect on the right lateral ventricle and 5 mm midline shift from right to left. No evidence for hemorrhagic transformation.
[2017-08-03] MEDS ORDERED: Lidocaine 2% Inj (20ml) ONE (09:50)
[2017-08-03] MEDS ORDERED: Phenylephrine 10 mg/ml Inj ONE (09:50)
[2017-08-03] MEDS ORDERED: Midazolam 2 MG/2 ML VIAL ONE (10:06)
[2017-08-03] MEDS: Dextrose 5%/0.9% NS 1,000 ML IV SCH ×2 (10:07→18:45)
[2017-08-03] MEDS ORDERED: Iodixanol 320 MG/ML 100 ML BOTTLE IV ONE (10:38)
[2017-08-03] MEDS ORDERED: Flumazenil 0.1 mg/ml Inj (5ml) IVP ONE (11:31)
[2017-08-03] MEDS ORDERED: Naloxone 0.4 mg/ml Inj (Adult) ONE (11:31)
--- NOTE | 2017-08-03 12:01 | CARD ---
APPROVED REPORT HISTORY The Patient is a 72 year-old male with a history of Ch. Afib, Hx of CVA, H & N cancer in past , NPO B/c of dysphagia admitted with tachy destiny syndrome and multiple pauses without meds INDICATIONS SSS Tacybrady syndrome Multiple pauses more than 4 seconds without meds A fib RVR CONSCIOUS SEDATION AGENTS Versed Fentanyl 2mg versed and 100 mcg total give by dr. Huynh IMPLANTED DEVICES Medtronic 5092 - 58 cm 5092 - 58 cm 5092-58 cm V lead Passive Pulse generator SENSIA SR IS-1 Medtronic OPERATIVE NOTE The patient was brought to the Cardiac Catheterization Laboratory in a fasting state and was prepped and draped in a sterile manner. The left subclavian region was infiltrated with 2% Lidocaine, subcutaneous anesthesia. A transverse incision was made in the left subclavicular area. The subcutaneous pocket was formed via blunt dissection, Percutaneous venous access was achieved and an introducer sheath was inserted into the Lt Subclavian vein. Through the introducer sheath, the ventricular lead wire was postitioned in the right ventricular apex utilizing fluoroscopic guidance. THE VENTRICULAR ELECTRODE PARAMETERS R WAVE 12 THRESHOLD0.5 RESISTANCE 621 The ventricular lead was then secured using Silk 0. The subcutaneous pocket was irrigated with Betadine. The ventricular lead was attached to the appropriate receptacle on the pulse generator and set screws firmly tightened to insure adequate contact and stability. The lead and pulse generator were placed into the subcutaneous pocket. Sharp and sponge counts were confirmed to be correct. At this time the pocket was closed subcutaneously with a 2.0 Vicryl and the skin was closed with a 4.0 Vicryl .The operative site was dressed in sterile fashion. The patient tolerated the procedure well and was transferred to the floor in stable condition. COMPLICATIONS The patient tolerated the procedure well and there were no complications associated with the procedure. CONCLUSION Successful mplantation of VVIR Medtronic SENSIA SR IS-1 and ventricular Yenifer lead ( Passive). Arrangement has been made for F/u in PPM clinic at [place]. Pt. is cleared from cardiology point to go for PEG placement in am, CC; Romina Carlson MD
--- NOTE | 2017-08-03 12:43 | RAD ---
HISTORY: R/O pneumothorax, S/p PPM COMPARISON: 07/28/2017. FINDINGS: LUNGS: Examination is limited due to patient rotation to the left. There is a left retrocardiac opacity. PLEURA: There are layering pleural effusions, larger on the right, no pneumothorax apparent. CARDIOVASCULAR: The heart remains enlarged. There is interval placement of unipolar left-sided permanent pacing device. OSSEOUS STRUCTURES: No significant abnormalities. VISUALIZED UPPER ABDOMEN: Normal. OTHER FINDINGS: None. IMPRESSION: Limited portable examination, allowing for this no large pneumothorax. Interval placement of a unipolar left-sided permanent pacing device. Layering pleural effusions, larger on the right. Left retrocardiac opacity may represent atelectasis or pneumonia. Follow-up is advised.
[2017-08-03] MEDS: diltiaZEM IVPB 100mg in NS 100 ML IV SCH ×2 (13:00→21:49)
[2017-08-03] MEDS: ceFAZolin 1 gm in NS 1 GM/100 ML BAG IVPB SCH ×2 (13:58→21:50)
--- NOTE | 2017-08-03 20:57 | PN ---
DATE: 08/03/2017 SUBJECTIVE: Patient is in bed, in no acute distress, nontoxic. PHYSICAL EXAMINATION: VITAL SIGNS: Temperature is 97, blood pressure is 140/80, respiratory rate of 18, heart rate of 101. HEENT: Unremarkable. NECK: Supple. LUNGS: Have decreased breath sounds. HEART: Normal S1, S2. ABDOMEN: Soft, nontender. LABORATORY EXAMINATION: Reveals a white count of 5.3, hemoglobin of 12 and chemistries reveals a BUN of 9, creatinine of 1.0. Serology is noted. Microbiology reveals the blood cultures are negative and patient had a chest x-ray done today, which revealed limited study and a left-sided permanent pacemaker is noted. Dr. Huynh's cardiac procedure note is reviewed. ASSESSMENT AND PLAN: This 72-year-old male who was seen earlier this morning in room 267, bed 2, who was admitted with sepsis, right lower lobe healthcare-associated pneumonia, history of hypertension and chronic obstructive lung disease, cerebrovascular accident, throat cancer, dementia, atrial fibrillation, hypertension, liver cirrhosis, had received antibiotics of vancomycin, cefepime and doxycycline and patient had a tachybrady syndrome with multiple pauses without medications and now pacemaker placement, and patient is currently off of antibiotics. Patient was given cefazolin empirically for procedure of the pacemaker placement and risk for developing nosocomial infections. Efra Craig MD
--- NOTE | 2017-08-03 23:08 | PN ---
DATE: PULMONARY PROGRESS NOTE REFERRING PHYSICIAN: Mariana Fernandez MD. SUBJECTIVE: He is lying in the bed, head at 45 degrees, ended up receiving pacemaker because of destiny-tachy syndrome. No hemoptysis, no hematemesis, no hematuria, no diarrhea. No leg pain or leg swelling. OBJECTIVE: GENERAL: In no acute distress. VITAL SIGNS: Temperature 98, heart rate 108, respiratory rate is 20, blood pressure 164/94, pulse ox 98% on 3 L nasal cannula. HEENT: Moist mucous membrane. Crowded airway. NECK: Supple. No JVD. LUNGS: Fair air flow. No rhonchi. HEART: S1, S2. ABDOMEN: Soft, nontender. No organomegaly. EXTREMITIES: There is no edema. NEUROLOGIC: Awake, alert, does follow simple commands. MEDICATIONS: He is on Ancef 1 g IV q.8 hour, hydralazine 10 mg q.6 hour p.r.n., Cardizem IV 10 mL per hour, DuoNeb q.6 hour, metoprolol tartrate 25 mg twice a day, potassium with IV fluids 100 mL per hour, Protonix 40 mg daily, Tylenol p.r.n. basis. LABORATORY DATA: Hemoglobin 12.4, hematocrit 38.5, WBC 5.3, platelet count is 163, INR 1.23. Sodium 139, potassium 3.0, chloride 108, bicarbonate 23, BUN 9, creatinine 1.0, glucose 103, calcium is 9.1, magnesium 1.8. AST 14, ALT 37, alk phos is 49, albumin 3.2. Microbiology: Blood culture has been negative. Chest x-ray done this morning shows there is no pneumothorax, unipolar left-sided permanent pacemaker noted, has pleural effusion, could be left lower lobe some atelectasis/pneumonia. IMPRESSION AND PLAN: Status post acute stroke with oropharyngeal dysphagia. He is n.p.o. waiting for G-tube. Had a few rapid response because of atrial fibrillation with rapid ventricular response, also with hypertension, severe cardiomyopathy. Patient ended up with a pacemaker today. probably can increase beta-yessenia, calcium channel yessenia. Pulmonary point of view, keep head at 45 degree, continue antibiotics, bronchodilator, aspiration precaution. Thank you and we will follow with you. Fatoumata Cruz MD [facility] # [id number]
[2017-08-04] MEDS: Albuterol-Ipratrop 3 mg / 0.5 (3 ml) UD IH SCH ×4 (02:04→20:59)
--- NOTE | 2017-08-04 02:53 | PN ---
DATE: SUBJECTIVE: The patient is a 72-year-old male. The patient is seen and examined early in the morning, came back after defibrillator placement. Discussion done with Dr. Huynh. He cleared the patient for the defib. Patient is supposed to go for PEG tube tomorrow. No fever. No chills. No nausea, vomiting or diarrhea. Patient is still n.p.o. No headaches. No dizziness. PHYSICAL EXAMINATION: VITAL SIGNS: Temperature is 97, heart rate 101, blood pressure 140/80. HEENT: Head: Normocephalic, atraumatic. Eyes: PERRLA. Extraocular muscles intact. Conjunctivae clear. Nose patent. Mucous membrane moist. NECK: Supple. No carotid bruit. No JVD or thyromegaly. CHEST: Bilaterally symmetrical. HEART: S1 and S2 positive. LUNGS: Clear to auscultation. ABDOMEN: Soft. Bowel sounds present. No organomegaly. EXTREMITIES: No edema. No cyanosis. NEUROLOGIC: The patient is awake and alert. Moving all 4 extremities. No focal deficits. MEDICATIONS: Ancef, hydralazine, Cardizem, dextrose, DuoNeb, Lopressor, Protonix, and Tylenol. LABORATORY DATA: White blood cell is 5.3, hemoglobin 12.4, hematocrit 38.5, platelets 163. Sodium 139, potassium 3.0, chloride 108, BUN 9, creatinine 1.0, glucose is 102. ASSESSMENT AND PLAN: Mr. Geo Ewing is a 72-year-old male with anemia, hypokalemia, hyperchloremia, seen by Dr. Efra Craig, Infectious Disease specialist, has sepsis, right lower lobe healthcare associated pneumonia, history of hypertension, chronic obstructive lung disease, cerebrovascular accident, throat cancer, dementia, atrial fibrillation, hypertension, liver cirrhosis. Got vancomycin, cefepime and doxycycline. Patient had tachycardia syndrome with multiple pauses without medications and now pacemaker placement. Patient is currently off the antibiotics as per Infectious Disease. Patient was given . empirically for procedure of the pacemaker placement and risk of developing a nosocomial infection. Today there was rapid response later of the day. I reviewed that, due to tachycardia, slip tender is on the case. GI and DVT prophylaxis. Repeat labs. We will follow up. Mariana Fernandez MD [facility] # [id number] JAMES
[2017-08-04] MEDS: ceFAZolin 1 gm in NS 1 GM/100 ML BAG IVPB SCH ×3 (05:14→21:56)
[2017-08-04 06:53] LABS: BASO # 0.01 K/mm3 (0.0-2.0); BASO % 0.1 % (0.0-3.0); EOS # 0.1 (0.0-0.7); EOS % 1.6 % (1.5-5.0); GRAN # 5.68 (1.4-6.5); GRAN % 82.2 % (50.0-68.0); HEMOGLOBIN 12.2 g/dL (14.0-18.0); LYMPH # 0.6 (1.2-3.4); LYMPH % 8.2 % (22.0-35.0); MEAN CELL VOLUME 85.6 fl (80.0-105.0); MEAN CORPUSCULAR HEMOGLOBIN 27.9 pg (25.0-35.0); MEAN CORPUSCULAR HGB CONC 32.6 g/dl (31.0-37.0); MEAN PLATELET VOLUME 8.7 fl (7.0-11.0); MONO # 0.6 (0.1-0.6); MONO % 7.9 % (1.0-6.0); RBC 4.37 10^6/uL (3.5-6.1); RED CELL DISTRIBUTION WIDTH 14.3 % (11.5-14.5); WHITE BLOOD COUNT 6.9 10^3/ul (4.5-11.0)
[2017-08-04 07:18] LABS: BLOOD UREA NITROGEN 10 mg/dL (7-21); GFR AFRICAN-AMERICAN > 60; GFR NON-AFRICAN AMERICAN > 60
--- NOTE | 2017-08-04 08:35 | PN ---
DATE: 08/03/2017 REASON FOR CONSULTATION: Follow up of tachy-destniy syndrome, atrial fibrillation, sick sinus syndrome, status post permanent pacemaker. SUBJECTIVE: The patient denies any chest pain, shortness of breath or any palpitations. OBJECTIVE: GENERAL: Not in apparent distress. VITAL SIGNS: As follows: Temperature afebrile, heart rate 100, blood pressure 160/107. HEENT: PERRLA, intact. NECK: Supple. No carotid bruit or thyromegaly. CHEST: Clear to auscultation. HEART: S1 and S2, regular. ABDOMEN: Soft. EXTREMITIES: Clubbing and cyanosis negative. LABORATORY DATA: Blood workup as follows: WBC 5.3, hemoglobin 12.4, hematocrit 38.5, platelet count 163. Chemistry shows sodium 139, potassium 3, chloride 108, carbon dioxide 23, anion gap of 11, BUN 9, creatinine 1.0. IMPRESSION: Multiple electrolyte abnormality, sick sinus syndrome, tachy-destiny syndrome, atrial fibrillation, head and neck cancer, multiple pauses, got rapid response rapid rate, status post permanent pacemaker. RECOMMENDATIONS: We will start IV Cardizem 10 mg an hour, now patient with permanent pacemaker. Cut down the fluid to D5 normal at 50 mL an hour. Patient is cleared from Cardiology point of view to go for the PEG placement. Once the PEG is placed in, we will start Xarelto anticoagulation as well as beta-yessenia and Cardizem. Chest x-ray stat, rule out pneumonia, status post permanent pacemaker, followup chest x-ray in the morning. In physician communication, as mentioned, the patient is okay to go for PEG placement. Thank you Dr. Fernandez for providing us the opportunity in taking care of the patient, Geo Ewing. Fatoumata Huynh MD
[2017-08-04] MEDS: diltiaZEM IVPB 100mg in NS 100 ML IV SCH ×2 (08:40→19:16)
[2017-08-04] MEDS ORDERED: Magnesium Sulfate 2 GM in Sodium Chloride 0.9% 100 ML IVPB ONE (08:58)
--- NOTE | 2017-08-04 09:35 | PN ---
DATE: 08/04/2017 REASON FOR THE CONSULTATION: Follow up tachy-destiny syndrome, atrial fibrillation, sick sinus syndrome, status post permanent pacemaker. SUBJECTIVE: The patient denies any chest pain, shortness of breath, any palpitation. OBJECTIVE: GENERAL: Lying flat on the bed. VITAL SIGNS: Temperature afebrile, heart rate 107, blood pressure 122/76. HEENT: PERRLA. Extraocular muscles intact. NECK: Supple. No carotid bruit. No thyromegaly. CHEST: Clear to auscultation. HEART: S1 and S2 regular. ABDOMEN: Soft. EXTREMITIES: Clubbing and cyanosis negative. LABORATORY DATA: Blood workup as follows; WBC 6.9, hemoglobin 12.8, hematocrit 37.4, platelet count 158. Chemistry shows sodium 130, potassium 3.7, chloride 111, carbon dioxide 19, BUN 10, creatinine 1.0, magnesium 1.6. IMPRESSION: Multiple electrolytes abnormality. N.p.o. because of laryngeal dysphagia. High risk of aspiration. Sick sinus syndrome, tachycardia-bradycardia syndrome with status post permanent pacemaker, atrial fibrillation. RECOMMENDATION: The patient is cleared from cardiac point of view to go for PEG placement. We will start beta yessenia also 5 mg q. 6, first dose now and we will supplement aggressively potassium and magnesium. The patient is cleared from cardiac point of view to go for PEG. Once the PEG is placed, we will start p.o. meds and we will start anticoagulation as well for AFib. We will restart Xarelto. The patient was on Xarelto at home. The patient had echocardiography done 2 days ago in the [place] and read by Dr. Cruz as systolic function severely impaired, global hypokinesis of the left ventricle. Ejection fraction reported 25%. Prior to that, the patient had echo also on 02/09/2017, which shows ejection fraction 20-25%. Mild mitral regurgitation, mild to moderate tricuspid regurgitation, RV systolic pressure 31. Recommendation as mentioned above. Continue Cardizem. We will start IV Lopressor to control the heart rate. Once the PEG is placed, we will switch over to beta yessenia, Cardizem as well as restart Xarelto. The patient is off anticoagulation because of possible placement of the PEG. We will aggressively supplement magnesium and potassium. Thank you, Dr. Fernandez for providing us the opportunity in taking care of the patient, Geo Ewing. Fatoumata Huynh MD
--- NOTE | 2017-08-04 10:27 | RAD ---
HISTORY: R/O pneumothorax and compre COMPARISON: No prior. FINDINGS: LUNGS: No active pulmonary disease. PLEURA: Right-sided pleural effusion. No pneumothorax CARDIOVASCULAR: Normal. OSSEOUS STRUCTURES: No significant abnormalities. VISUALIZED UPPER ABDOMEN: Normal. OTHER FINDINGS: Single lead pacemaker IMPRESSION: Right-sided pleural effusion. No evidence of pneumothorax
[2017-08-04] MEDS: Metoprolol 1 mg/ml Inj IV SCH ×3 (11:03→21:56)
[2017-08-04] MEDS ORDERED: Etomidate 20 mg/10ml Inj IV ONE (11:08)
[2017-08-04] MEDS ORDERED: Lidocaine 1% Inj (20ml) ONE (11:09)
[2017-08-04] MEDS ORDERED: ePHEDrine 50 mg/ml Inj ONE (11:26)
--- NOTE | 2017-08-04 11:37 | CP.PCM.PN ---
<Iesha Ramos - Last Filed: 08/04/17 11:33> Subjective - Date & Time of Evaluation Date of Evaluation: 08/04/17 Time of Evaluation: 09:30 - Subjective Subjective: Chief complaint: LCW pacemaker, dysphagia 71 yr male with history of Afib (on Xarelto), HTN, COPD, throat cancer (s/p radiation), cirrhosis, Dementia and TIA (R sided weakness). Pt admitted to [facility] [place] for AMS, slurred speech and new L onset sided weakness. Pt was found to have acute R hemispheric infarct with occlusion of L internal carotid. R lower lobe atelectasis/peumonia also being treated. Rapid response team called for acute Afib/Aflutter on 08/01. Pt stablized w/ IV cardizem, however , occassional pauses noted. s/p AICD pacemaker insterion on 08/03. Today, pt seen at bedside. He is confused and a poor historian. Denies any shortness of breath , chest pain, headache, fever, chills, diarrhea, constipation, paraesthesias, or urinary changes. Objective - Vital Signs/Intake and Output Vital Signs (last 24 hours): Temp Pulse Resp BP Pulse Ox 98.1 F 107 H 18 122/76 18 L 08/04/17 06:00 08/04/17 11:03 08/04/17 06:00 08/04/17 11:03 08/04/17 06:00 Intake and Output: 08/04/17 08/04/17 06:59 18:59 Intake Total 920 Output Total 1 Balance 919 - Medications Medications: Current Medications Acetaminophen (Tylenol 650 Mg Supp) 650 mg RC Q4H PRN PRN Reason: Fever >100.4 F Last Admin: 07/29/17 06:46 Dose: 650 mg Albuterol/Ipratropium (Duoneb 3 Mg/0.5 Mg (3 Ml) Ud) 3 ml IH [id number] HEIDE Last Admin: 08/04/17 07:53 Dose: 3 ml Hydralazine HCl (Apresoline) 10 mg IVP Q6 PRN PRN Reason: for SBP>170 Last Admin: 08/03/17 17:53 Dose: 10 mg Dextrose/Sodium Chloride (Dextrose 5%/0.9% Ns 1000 Ml) 1,000 mls @ 50 mls/hr IV .Q20H [facility] Last Admin: 08/03/17 18:45 Dose: 50 mls/hr diltiaZEM IVPB 100mg in NS (Cardizem 100mg In Ns) 100 mls @ 10 mls/hr IV .Q10H [facility] PRN Reason: 10 MG/HR Last Admin: 08/04/17 08:40 Dose: 10 mls/hr Cefazolin Sodium (Ancef 1gm In Ns) 1 gm in 100 mls @ 100 mls/hr IVPB Q8 [facility] Last Admin: 08/04/17 05:14 Dose: 100 mls/hr Metoprolol Tartrate (Lopressor) 25 mg PO BRKDIN [facility] Last Admin: 08/04/17 08:39 Dose: 25 mg Metoprolol Tartrate (Lopressor) 5 mg IV Q6H [facility] Last Admin: 08/04/17 11:03 Dose: 5 mg Pantoprazole Sodium (Protonix Inj) 40 mg IVP DAILY [facility] Last Admin: 08/04/17 11:02 Dose: 40 mg - Labs Labs: 08/04/17 06:49 08/04/17 06:49 PT 14.2 SECONDS (9.4-12.5) H 08/03/17 05:30 INR 1.23 (0.93-1.08) H 08/03/17 05:30 APTT 27.3 Seconds (25.1-36.5) 07/28/17 09:50 - Constitutional Appears: Chronically Ill - Head Exam Head Exam: ATRAUMATIC, NORMAL INSPECTION, NORMOCEPHALIC Additional comments: L facial droop - Eye Exam Eye Exam: Normal appearance Pupil Exam: NORMAL ACCOMODATION - ENT Exam ENT Exam: Mucous Membranes Moist, Normal Exam - Neck Exam Neck Exam: Normal Inspection - Respiratory Exam Respiratory Exam: Clear to Ausculation Bilateral, NORMAL BREATHING PATTERN - Cardiovascular Exam Cardiovascular Exam: Irregular Rhythm, +S1, +S2 Additional comments: L CW dermabond - GI/Abdominal Exam GI & Abdominal Exam: Soft, Normal Bowel Sounds - Extremities Exam Additional comments: L leg hemiplagia, L arm weakness R leg, R arm weakness - Back Exam Back Exam: NORMAL INSPECTION - Neurological Exam Neurological Exam: Alert, Awake - Psychiatric Exam Psychiatric exam: Normal Affect, Normal Mood - Skin Skin Exam: Dry, Intact, Normal Color, Warm Assessment and Plan (1) Tachy-destiny syndrome Status: Resolved (2) SSS (sick sinus syndrome) Status: Resolved (3) Malnutrition Status: Acute (4) Pulmonary hypertension Status: Acute (5) Atrial fibrillation and flutter Status: Acute (6) Systolic dysfunction with heart failure Status: Acute (7) Anemia Status: Acute (8) Pneumonia Status: Acute (9) Congestive heart failure Status: Acute (10) Pleural effusion Status: Acute (11) Right hemisphere, cerebral infarction Status: Acute (12) Facial droop as late effect of cerebrovascular accident (CVA) Status: Acute (13) Aspiration into lower respiratory tract Status: Acute (14) Cancer of neck Status: Acute (15) Head and neck malignancy Status: Acute (16) Ischemic stroke Status: Acute (17) Oropharyngeal aspiration Status: Acute - Assessment and Plan (Free Text) Plan: Pt cleared by commercial accountant for Pegtube insertion today. Aspiration precautions. NPO diet. Pt failed swallow eval x2. For pneumonia: PO doxycyline. IV cefepime. Blood cultures NEGATIVE. VTE/ GI prophlyaxis. PT/OT on board. Consults: Neuro - Dr. Nolasco Neuro - Dr. Pak GI - Dr. El ENT - Dr. Howard ID - Dr. Craig Pulmo - Dr. Cruz Reviewed: CXR = 08/04 - R sided pleural effusion ECHO = LVEF 25.6% systolic function severely impaired. mild to mod pulmonary hypertension CXR = R lower lobe atelectasis/peumonia, mild congestive heart failure, with bilateral pleural effusions larger on R. CT head = WNL CT head/neck = occlusion of L internal carotid MRI brain = acute R hemispheric infarct in the distribution of the middle cerebral artery. mild amount of mass effect with cortical; edema & effacement of sulci MRA head = occlusion of L internal carotid artery w diminished flow <Mariana Fernandez - Last Filed: 08/04/17 20:58> Objective - Vital Signs/Intake and Output Vital Signs (last 24 hours): Temp Pulse Resp BP Pulse Ox 98.4 F 101 H 20 122/74 99 08/04/17 17:51 08/04/17 18:21 08/04/17 17:51 08/04/17 18:21 08/04/17 12:30 Intake and Output: 08/04/17 08/05/17 18:59 06:59 Intake Total 0 Balance 0 - Medications Medications: Current Medications Acetaminophen (Tylenol 650 Mg Supp) 650 mg RC Q4H PRN PRN Reason: Fever >100.4 F Last Admin: 07/29/17 06:46 Dose: 650 mg Albuterol/Ipratropium (Duoneb 3 Mg/0.5 Mg (3 Ml) Ud) 3 ml IH [id number] [facility] Last Admin: 08/04/17 13:29 Dose: 3 ml Hydralazine HCl (Apresoline) 10 mg IVP Q6 PRN PRN Reason: for SBP>170 Last Admin: 08/03/17 17:53 Dose: 10 mg Dextrose/Sodium Chloride (Dextrose 5%/0.9% Ns 1000 Ml) 1,000 mls @ 50 mls/hr IV .Q20H [facility] Last Admin: 08/03/17 18:45 Dose: 50 mls/hr diltiaZEM IVPB 100mg in NS (Cardizem 100mg In Ns) 100 mls @ 10 mls/hr IV .Q10H [facility] PRN Reason: 10 MG/HR Last Admin: 08/04/17 19:16 Dose: 10 mls/hr Cefazolin Sodium (Ancef 1gm In Ns) 1 gm in 100 mls @ 100 mls/hr IVPB Q8 [facility] Last Admin: 08/04/17 14:51 Dose: 100 mls/hr Metoprolol Tartrate (Lopressor) 25 mg PO BRKDIN [facility] Last Admin: 08/04/17 18:21 Dose: 25 mg Metoprolol Tartrate (Lopressor) 5 mg IV Q6H [facility] Last Admin: 08/04/17 15:08 Dose: 5 mg Pantoprazole Sodium (Protonix Inj) 40 mg IVP DAILY [facility] Last Admin: 08/04/17 11:02 Dose: 40 mg - Labs Labs: 08/04/17 06:49 08/04/17 06:49 PT 14.2 SECONDS (9.4-12.5) H 08/03/17 05:30 INR 1.23 (0.93-1.08) H 08/03/17 05:30 APTT 27.3 Seconds (25.1-36.5) 07/28/17 09:50 Assessment and Plan - Assessment and Plan (Free Text) Plan: 71 yr male with history of Afib (on Xarelto), HTN, COPD, throat cancer (s/p radiation), cirrhosis, Dementia and TIA (R sided weakness). Pt admitted to [facility] for AMS, slurred speech and new L onset sided weakness. Pt was found to have acute R hemispheric infarct with occlusion of L internal carotid. R lower lobe atelectasis/peumonia also being treated. Rapid response team called for acute Afib/Aflutter on 08/01. Pt stablized w/ IV cardizem, however , occassional pauses noted. s/p AICD pacemaker insterion on 08/03. Today, pt seen at bedside. He is confused and a poor historian. Denies any shortness of breath , chest pain, headache, fever, chills, diarrhea, constipation, paraesthesias, or urinary changes.pt is seen and examined at bed side . looking comfortable , agreed all above , chart , meds and labs noted , will f/u
--- NOTE | 2017-08-04 15:59 | CP.PCM.PN ---
Subjective - Date & Time of Evaluation Date of Evaluation: 08/04/17 Time of Evaluation: 10:05 - Subjective Subjective: Comfortable, no fevers. Objective - Vital Signs/Intake and Output Vital Signs (last 24 hours): Temp Pulse Resp BP Pulse Ox 98.1 F 107 H 18 122/76 18 L 08/04/17 06:00 08/04/17 08:39 08/04/17 06:00 08/04/17 08:39 08/04/17 06:00 Intake and Output: 08/04/17 08/04/17 06:59 18:59 Intake Total 920 Output Total 1 Balance 919 - Medications Medications: Current Medications Acetaminophen (Tylenol 650 Mg Supp) 650 mg RC Q4H PRN PRN Reason: Fever >100.4 F Last Admin: 07/29/17 06:46 Dose: 650 mg Albuterol/Ipratropium (Duoneb 3 Mg/0.5 Mg (3 Ml) Ud) 3 ml IH [id number] HEIDE Last Admin: 08/04/17 07:53 Dose: 3 ml Hydralazine HCl (Apresoline) 10 mg IVP Q6 PRN PRN Reason: for SBP>170 Last Admin: 08/03/17 17:53 Dose: 10 mg Dextrose/Sodium Chloride (Dextrose 5%/0.9% Ns 1000 Ml) 1,000 mls @ 50 mls/hr IV .Q20H [facility] Last Admin: 08/03/17 18:45 Dose: 50 mls/hr diltiaZEM IVPB 100mg in NS (Cardizem 100mg In Ns) 100 mls @ 10 mls/hr IV .Q10H [facility] PRN Reason: 10 MG/HR Last Admin: 08/04/17 08:40 Dose: 10 mls/hr Cefazolin Sodium (Ancef 1gm In Ns) 1 gm in 100 mls @ 100 mls/hr IVPB Q8 [facility] Last Admin: 08/04/17 05:14 Dose: 100 mls/hr Potassium Chloride (Potassium Chloride 20 Meq/100 Ml) 20 meq in 100 mls @ 50 mls/hr IVPB ONCE ONE Stop: 08/04/17 10:57 Metoprolol Tartrate (Lopressor) 25 mg PO BRKDIN [facility] Last Admin: 08/04/17 08:39 Dose: 25 mg Metoprolol Tartrate (Lopressor) 5 mg IV Q6H [facility] Pantoprazole Sodium (Protonix Inj) 40 mg IVP DAILY [facility] Last Admin: 08/03/17 10:10 Dose: Not Given - Labs Labs: 08/04/17 06:49 08/04/17 06:49 PT 14.2 SECONDS (9.4-12.5) H 08/03/17 05:30 INR 1.23 (0.93-1.08) H 08/03/17 05:30 APTT 27.3 Seconds (25.1-36.5) 07/28/17 09:50 - Constitutional Appears: Chronically Ill - Head Exam Head Exam: NORMAL INSPECTION - ENT Exam ENT Exam: Mucous Membranes Moist - Neck Exam Neck Exam: absent: Meningismus - Respiratory Exam Respiratory Exam: Decreased Breath Sounds - Cardiovascular Exam Cardiovascular Exam: +S1, +S2 - GI/Abdominal Exam GI & Abdominal Exam: Soft. absent: Tenderness Assessment and Plan - Assessment and Plan (Free Text) Plan: Assessment S/P sepsis due to right lower lobe HCAP HTN COPD atrial fibrillation throat cancer dementia history of CVA of left frontal lobe liver cirrhosis Plan completed course of Vancomycin, Cefepime and Doxycycline will continue to monitor clinically off antibiotics since he is at risk for nosocomial infections
[2017-08-04] MEDS: Dextrose 5%/0.9% NS 1,000 ML IV SCH (21:58)
--- NOTE | 2017-08-04 22:28 | PN ---
DATE: 08/04/2017 PULMONARY PROGRESS NOTE REFERRING PHYSICIAN: Dr. Fernandez. SUBJECTIVE: He is lying in the bed, head at 45 degrees. Night was unremarkable status post G-tube placement. No cough. No sputum production. No chest pain. Mild abdominal discomfort. No nausea, no vomiting. No diarrhea. No leg pain or leg swelling. OBJECTIVE: GENERAL: In no acute distress. VITAL SIGNS: Temperature is 98, heart rate is 101, respiratory rate is 20, blood pressure 122/74, pulse ox of 99% on 2 liters nasal cannula. HEENT: Moist mucous membrane. Crowded airway. NECK: Supple. No JVD. LUNGS: Has fair airflow with few rhonchi. HEART: S1 and S2. ABDOMEN: G-tube area looks okay. EXTREMITIES: There is no edema. NEUROLOGIC: Awake and alert, follows simple command. MEDICATIONS: Shows he is on Ancef 1 g q.8 hour, hydralazine 10 mg IV q. 6 hours p.r.n., diltiazem IV drips, DuoNeb q. 6 hours, metoprolol tartrate 25 mg twice a day, also on metoprolol IV, Protonix 40 mg daily, Tylenol p.r.n. basis. LABORATORY DATA: Shows hemoglobin 12.7, hematocrit 37.4, WBC 6.9, platelet is 158. Sodium 137, potassium 2.6, chloride 111, bicarbonate 19, BUN 10, creatinine 1.0, glucose is 95, calcium is 9.0, phosphorus 2.9, magnesium 1.6. Serology is negative for influenza. Microbiology, blood culture has been negative. IMPRESSION AND PLAN: Status post acute stroke, oropharyngeal dysphagia, status post gastrotomy tube placement, had a destiny tachy syndrome requiring pacemaker and atrial fibrillation, hypertension, severe cardiomyopathy, may have sleep apnea syndrome. Pulmonary point view, doing okay. Keep head at 45 degrees. Aspiration precaution. Start gastrotomy tube feeding when cleared by GI, gastric prophylaxis. Sequential compression device to lower extremity. Also has a small effusion on the right side on x-ray. Thank you and we will follow with you. Fatoumata Cruz MD [facility] # [phone]
[2017-08-05] MEDS: Albuterol-Ipratrop 3 mg / 0.5 (3 ml) UD IH SCH ×4 (02:56→19:15)
[2017-08-05] MEDS: diltiaZEM IVPB 100mg in NS 100 ML IV SCH ×3 (03:58→22:55)
[2017-08-05] MEDS: Metoprolol 1 mg/ml Inj IV SCH ×3 (04:16→16:37)
[2017-08-05] MEDS: ceFAZolin 1 gm in NS 1 GM/100 ML BAG IVPB SCH (05:19)
--- NOTE | 2017-08-05 06:46 | CP.PCM.PN ---
Subjective - Date & Time of Evaluation Date of Evaluation: 08/05/17 Time of Evaluation: 08:00 - Subjective Subjective: GI Fellow PGY4 Progress Note Pt seen and evaluated at bedside, pt with no complaints, denies abdominal pain. Pt is s/p PEG placement with no complications. ROS: A 12pt ROS was negative except as above Objective - Vital Signs/Intake and Output Vital Signs (last 24 hours): Temp Pulse Resp BP Pulse Ox 98.1 F 108 H 18 124/81 99 08/05/17 06:00 08/05/17 06:00 08/05/17 06:00 08/05/17 06:00 08/05/17 06:00 Intake and Output: 08/04/17 08/05/17 18:59 06:59 Intake Total 0 820 Output Total 0 Balance 0 820 - Medications Medications: Current Medications Acetaminophen (Tylenol 650 Mg Supp) 650 mg RC Q4H PRN PRN Reason: Fever >100.4 F Last Admin: 07/29/17 06:46 Dose: 650 mg Albuterol/Ipratropium (Duoneb 3 Mg/0.5 Mg (3 Ml) Ud) 3 ml IH [id number] [facility] Last Admin: 08/05/17 02:56 Dose: 3 ml Hydralazine HCl (Apresoline) 10 mg IVP Q6 PRN PRN Reason: for SBP>170 Last Admin: 08/03/17 17:53 Dose: 10 mg Dextrose/Sodium Chloride (Dextrose 5%/0.9% Ns 1000 Ml) 1,000 mls @ 50 mls/hr IV .Q20H [facility] Last Admin: 08/04/17 21:58 Dose: 50 mls/hr diltiaZEM IVPB 100mg in NS (Cardizem 100mg In Ns) 100 mls @ 10 mls/hr IV .Q10H [facility] PRN Reason: 10 MG/HR Last Admin: 08/05/17 03:58 Dose: 10 mls/hr Cefazolin Sodium (Ancef 1gm In Ns) 1 gm in 100 mls @ 100 mls/hr IVPB Q8 [facility] Last Admin: 08/05/17 05:19 Dose: 100 mls/hr Metoprolol Tartrate (Lopressor) 25 mg PO BRKDIN [facility] Last Admin: 08/04/17 18:21 Dose: 25 mg Metoprolol Tartrate (Lopressor) 5 mg IV Q6H [facility] Last Admin: 08/05/17 04:16 Dose: 5 mg Pantoprazole Sodium (Protonix Inj) 40 mg IVP DAILY [facility] Last Admin: 08/04/17 11:02 Dose: 40 mg - Labs Labs: 08/04/17 06:49 08/04/17 06:49 PT 14.2 SECONDS (9.4-12.5) H 08/03/17 05:30 INR 1.23 (0.93-1.08) H 08/03/17 05:30 APTT 27.3 Seconds (25.1-36.5) 07/28/17 09:50 - Constitutional Appears: Toxic, No Acute Distress, Cachectic - Head Exam Head Exam: ATRAUMATIC, NORMAL INSPECTION, NORMOCEPHALIC - Eye Exam Eye Exam: EOMI, Normal appearance, PERRL - ENT Exam ENT Exam: Mucous Membranes Dry - Respiratory Exam Respiratory Exam: Clear to Ausculation Bilateral, NORMAL BREATHING PATTERN - Cardiovascular Exam Cardiovascular Exam: Irregular Rhythm - GI/Abdominal Exam GI & Abdominal Exam: Distended, Soft, Normal Bowel Sounds. absent: Guarding, Tenderness Additional comments: PEG - Extremities Exam Extremities Exam: Normal Inspection - Neurological Exam Neurological Exam: Alert, Awake - Psychiatric Exam Psychiatric exam: Normal Affect, Normal Mood - Skin Skin Exam: Dry, Intact, Normal Color, Warm Assessment and Plan - Assessment and Plan (Free Text) Assessment: This is a 71M w. hx of neck cancer s/p radiation and resection, CVA, dementia who presents to the hospital with new CVA. GI evaluation for Dyphagia and possible PEG 1. Dysphagia s/p PEG POD#1 2. Poor oral intake 3. Dementia 4. Hx of neck cancer s/p radiation and resection 5. CHF/Afib/Aflutter 6. CVA Plan: -Continue supportive care -Pt is s/p PEG with no complications -PEG bummer loosened at bedside -Okay to start TF at 20cc/hr and increase as tolerated and water flushes, meds via PEG today, discussed with RN aware of order -Recommend nutritional cs for TF goals -Continue PPI -Bowel regimen with miralax -Okay to restart OAC -Please call with any questions or concerns
[2017-08-05] MEDS ORDERED: Magnesium Sulfate 1 gm in D5W 1 GM/100 ML BAG IVPB ONE (12:24)
--- NOTE | 2017-08-05 13:26 | PN ---
DATE: 08/05/2017 SUBJECTIVE: The patient is in bed, in no acute distress, nontoxic. PHYSICAL EXAMINATION: VITAL SIGNS: Temperature is 97, blood pressure is 114/70, respiratory rate of 18, heart rate of 89. HEENT: Examination of HEENT is unremarkable. NECK: Supple. LUNGS: Have decreased breath sounds. HEART: Normal S1 and S2. ABDOMEN: Soft. LABORATORY DATA: Laboratory examination reveals a white count of 6.9, hemoglobin of 12, platelets of 158. Chemistries revealed a BUN of 10, creatinine of 1.0. Serology is noted. Influenza is negative. Microbiology is noted. Blood cultures are negative. ASSESSMENT AND PLAN: A 71-year-old with sepsis status post secondary to right lower lobe healthcare-associated pneumonia, hypertension, chronic obstructive lung disease, atrial fibrillation, dementia, history of cerebrovascular accidents in left frontal lobe. Completed a course of the antibiotics. Currently, off of antibiotics. He was seen early this morning in 264, bed 1. Review of orders reveals the patient is still on the cefazolin for pacemaker placement. The patient has had tachycardia-bradycardia syndrome requiring a pacemaker. We will discontinue the Ancef. Efra Craig MD
--- NOTE | 2017-08-05 15:40 | PN ---
DATE: SUBJECTIVE: The patient is 72 years old male. The patient seen and examined on the bedside, checking cleaning up from the staff, still n.p.o. No complaints, no nausea, vomiting or diarrhea. Status post PEG tube placement without complications. I spoke to the nurse. We will start feeding today. No hematuria, no hematochezia, no fever, no chills. REVIEW OF SYSTEMS: A 12-point review of system negative except as above. PHYSICAL EXAMINATION: VITAL SIGNS: Temperature 98.1, pulse 108, respirations 18, blood pressure 124/81, pulse oximetry 99%. HEENT: Head: Normocephalic, atraumatic. Eyes: PERRLA. Extraocular muscles intact. Conjunctivae clear. Nose patent. NECK: Supple. No carotid bruit, no JVD or thyromegaly. CHEST: Bilaterally symmetrical. HEART: S1, S2 positive. LUNGS: Clear to auscultation. ABDOMEN: Soft, bowel sounds present. No organomegaly. EXTREMITIES: No edema, no cyanosis. NEUROLOGIC: Patient awake and alert, obeying simple orders. MEDICATIONS: Tylenol, DuoNeb, hydralazine, dextrose, diltiazem, cefazolin, Lopressor, Protonix. LABORATORY DATA: White blood cells 6.9, hemoglobin 12.2, hematocrit 37.4, platelets 158. Sodium 137, potassium 3.6, BUN 12, creatinine 1.0, glucose 95. ASSESSMENT AND PLAN: Mr. Geo Ewing is a 72-year-old male with anemia, hyperchloremia, history of neck cancer, status post radiation and resection, cerebrovascular accident, dementia, came with new onset cerebrovascular accident, has dysphagia, GI evaluation done, status post percutaneous endoscopic gastrostomy tube placement, poor oral intake, congestive heart failure, atrial fibrillation/flutter. Continue supportive care. We will start feeding today and according to GI, start tube feeding at 20 mL per hour, increase as tolerated with water flush and medicine so can use percutaneous endoscopic gastrostomy tube. Discussion done with patient's nurse and staff. have proton pump inhibitor. Appreciated GI input, seen by Dr. Cruz, Infectious Disease by Dr. Clark Desouza, see the receiving barn custodian for abnormal heart rate, tachycardia. Patient has destiny-tachyarrhythmia syndrome requiring pacemaker and atrial fibrillation, severe cardiomyopathy, sleep apnea syndrome, still aspiration precautions, physical therapy. We will follow up. Mariana Fernandez MD [facility]
--- NOTE | 2017-08-05 16:45 | PN ---
DATE: 08/05/2017 LOCATION: Room 264, bed 1. REASON FOR CONSULTATION AND FOLLOWUP: Tachy-destiny syndrome, atrial fibrillation, sick sinus syndrome, status post permanent pacemaker insertion, status post PEG insertion, gastrostomy tube. SUBJECTIVE: The patient is lying flat in bed without chest pain, shortness of breath, or palpitation. PHYSICAL EXAMINATION: VITAL SIGNS: Blood pressure 124/81, respiration 18, pulse 108, temperature 98.1. HEENT: Head is normocephalic. Eyes: Pupils normal. Conjunctivae slightly pale. NECK: JVP low. Carotid equal. THORAX: AP diameter normal. LUNGS: Clear. CARDIOVASCULAR: S1 and S2. Pacemaker site healing well. ABDOMEN: Soft. No organomegaly. The patient has PEG tube. EXTREMITIES: No clubbing. No cyanosis. LABORATORY DATA: WBC 6.9, hemoglobin 12.2, hematocrit 37.4, and platelets 158. Sodium 137, potassium 3.6, BUN 10, creatinine 1.0, magnesium 1.6. Calcium and phosphorous normal. Echo on 02/09/2017 showed ejection fraction 20% to 25%, mild mitral regurgitation, [id number] tricuspid regurgitation, RV systolic pressure 31 mmHg. ASSESSMENT: status post percutaneous endoscopic gastrostomy insertion, tachy-destiny syndrome, status post pacemaker insertion, atrial fibrillation, cardiomyopathy. PLAN: We will continue the patient on diltiazem drip, IV fluid, metoprolol 25 b.i.d. Magnesium oxide was given yesterday. We will give another magnesium bolus today. We will repeat labs in the morning. Protonix 40 IV daily. We will monitor the patient. We will follow with you. Fatoumata Torres MD
[2017-08-05] MEDS: Dextrose 5%/0.9% NS 1,000 ML IV SCH (19:46)
--- NOTE | 2017-08-05 20:32 | PN ---
DATE: 08/05/2017 PULMONARY PROGRESS NOTE REFERRING PHYSICIAN: Dr. Fernandez. SUBJECTIVE: Patient lying in the bed, head at 45 degrees. Speech therapy at bedside. Night was unremarkable, status post G-tube. G-tube feeding is being started. Not much cough. No sputum production. No nausea. No leg pain or leg swelling. OBJECTIVE: GENERAL: In no acute distress. VITAL SIGNS: Temperature is 98, heart rate is 89, respiratory rate is 18, blood pressure 114/71, pulse ox 99% on room air. HEENT: Moist mucous membrane. Crowded airway. NECK: Supple. No JVD. LUNGS: Has fair airflow with few rhonchi. HEART: S1 and S2. ABDOMEN: Soft, nontender. No organomegaly. G-tube area looks okay. EXTREMITIES: No edema. NEUROLOGIC: Awake and alert, follows simple command. MEDICATIONS: He is on hydralazine 10 mg q. 6 hours p.r.n., Cardizem IV, also on DuoNeb q. 6 hours, metoprolol tartrate 25 mg twice a day and also metoprolol tartrate 5 mg IV q. 6 hours, Protonix 40 mg daily, Tylenol p.r.n. basis. LABORATORY DATA: Shows no new lab is available since yesterday. IMPRESSION AND PLAN: Status post acute stroke, oropharyngeal dysphagia, status post gastrostomy tube placement, destiny tachy syndrome end up receiving pacemaker, hypertension, severe cardiomyopathy, may have sleep apnea syndrome. Case discussed speech therapy. Pulmonary point of view, doing okay. Continue bronchodilator, keep head at 45 degrees. Aspiration precaution. May discontinue intravenous beta yessenia and continue gastrotomy tube beta-yessenia, taper of Cardizem. Aspiration precaution. Thank you and we will follow with you. Fatoumata Cruz MD
[2017-08-06] MEDS: Albuterol-Ipratrop 3 mg / 0.5 (3 ml) UD IH SCH ×5 (01:28→20:17)
--- NOTE | 2017-08-06 06:03 | CP.PCM.PN ---
Subjective - Date & Time of Evaluation Date of Evaluation: 08/06/17 Time of Evaluation: 06:01 - Subjective Subjective: Mr. berumen was seen and examined at the bedside. He is alert, but unable to verbalize place and time. He is able to answer some questions appropriately and follow simple commands. He remains with left hemiplegia. He is tolerating peg feedings. He is currently receiving Cardizem drip for his A-fib. He has bilateral lower extremities SCD's. There was no untoward events overnight. Objective - Vital Signs/Intake and Output Vital Signs (last 24 hours): Temp Pulse Resp BP Pulse Ox 99.2 F 84 20 120/70 98 08/05/17 23:22 08/06/17 03:00 08/05/17 23:22 08/05/17 23:22 08/05/17 17:11 - Medications Medications: Current Medications Acetaminophen (Tylenol 650 Mg Supp) 650 mg RC Q4H PRN PRN Reason: Fever >100.4 F Last Admin: 07/29/17 06:46 Dose: 650 mg Albuterol/Ipratropium (Duoneb 3 Mg/0.5 Mg (3 Ml) Ud) 3 ml IH [id number] [facility] Last Admin: 08/06/17 01:30 Dose: Not Given Hydralazine HCl (Apresoline) 10 mg IVP Q6 PRN PRN Reason: for SBP>170 Last Admin: 08/03/17 17:53 Dose: 10 mg Dextrose/Sodium Chloride (Dextrose 5%/0.9% Ns 1000 Ml) 1,000 mls @ 50 mls/hr IV .Q20H [facility] Last Admin: 08/05/17 19:46 Dose: Not Given diltiaZEM IVPB 100mg in NS (Cardizem 100mg In Ns) 100 mls @ 10 mls/hr IV .Q10H [facility] PRN Reason: 10 MG/HR Last Admin: 08/05/17 22:55 Dose: 10 mls/hr Metoprolol Tartrate (Lopressor) 50 mg PO BRKDIN [facility] Last Admin: 08/05/17 17:10 Dose: Not Given Pantoprazole Sodium (Protonix Inj) 40 mg IVP DAILY [facility] Last Admin: 08/05/17 10:03 Dose: 40 mg - Labs Labs: 08/04/17 06:49 08/04/17 06:49 PT 14.2 SECONDS (9.4-12.5) H 08/03/17 05:30 INR 1.23 (0.93-1.08) H 08/03/17 05:30 APTT 27.3 Seconds (25.1-36.5) 07/28/17 09:50 - Constitutional Appears: No Acute Distress - Head Exam Head Exam: NORMAL INSPECTION - Neurological Exam Neurological Exam: Alert, Awake Neuro motor strength exam: Left Upper Extremity: 2/1, Right Upper Extremity: 5, Left Lower Extremity: 2/1, Right Lower Extremity: 5 Additional comments: He is able to answer questions and follows commands. Sensation remains intact. Assessment and Plan (1) Ischemic stroke Assessment & Plan: Case discussed with Dr. Quintana, continue all current medical, physical, and occupational therapies. Recommend blood pressure control and any cardiology orders for his A-fib. Status: Acute
[2017-08-06 07:31] LABS: BLOOD UREA NITROGEN 11 mg/dL (7-21); CALCIUM 9.1 mg/dL (8.4-10.5); GFR AFRICAN-AMERICAN > 60; GFR NON-AFRICAN AMERICAN > 60
[2017-08-06] MEDS ORDERED: Potassium Chloride 20 mEq/15 ml LIQ UD PEG STA (09:25)
[2017-08-06] MEDS: diltiaZEM IVPB 100mg in NS 100 ML IV SCH (11:45)
--- NOTE | 2017-08-06 14:19 | PN ---
DATE: 08/05/2017 LOCATION: The patient in room 264, bed 1. REASON FOR CONSULTATION AND FOLLOWUP: Tachy-destiny syndrome, status post pacemaker insertion; atrial fibrillation; status post PEG insertion. SUBJECTIVE: The patient lying flat in bed without any chest pain, shortness of breath or palpitation. PHYSICAL EXAMINATION VITAL SIGNS: Blood pressure 117/72, respirations 20, pulse 102, temperature 98.4. HEENT: Head is normocephalic. Eyes, pupils normal. Conjunctivae, slightly pale. NECK: JVP low. Carotid equal. THORAX: AP diameter normal. LUNGS: Clear. CARDIOVASCULAR: S1 and S2. ABDOMEN: The patient has PEG tube. EXTREMITIES: No clubbing. No cyanosis. LABORATORY DATA: WBC 6.9, hemoglobin 12.2, hematocrit 37.4, platelets 158,000. Sodium 136, potassium 3.3, BUN 11, creatinine 1.0, calcium 9.1, phosphorus 2.4, magnesium 1.8. DIAGNOSES: Atrial fibrillation; tachy-destiny syndrome, status post pacemaker insertion; feeding gastrostomy tube; cardiomyopathy. PLAN: We will change Cardizem 60 mg q. 8 hours through the feeding tube and we will stop the Cardizem drip. The patient also will receive Lopressor 50 mg b.i.d. through the feeding tube. The patient is on Protonix 40 mg IV daily. We will also start Xarelto, no PEG tube has been put in. Echo was done which showed LV ejection fraction 25%. [id number] tricuspid regurgitation, mild mitral regurgitation, RV systolic pressure of 31. We will discontinue IV fluids. We will follow with you. Fatoumata Torres MD
--- NOTE | 2017-08-06 16:22 | PN ---
DATE: 08/06/2017 SUBJECTIVE: The patient is in bed, in no acute distress, was seen early this morning in 264. No fevers and no chills, uneventful night. PHYSICAL EXAMINATION: VITAL SIGNS: Temperature is 98, blood pressure is 112/70, respiratory 20, heart rate of 102. HEENT: Unremarkable. NECK: Supple. LUNGS: Have decreased breath sounds. HEART: Normal S1, S2. ABDOMEN: Soft, nontender. LABORATORY DATA: Reveals a white count of 6.9, hemoglobin of 12, platelets of 158. Chemistry reveals a BUN of 11, creatinine of 1 and procalcitonin 0.05. Influenza is negative. ASSESSMENT AND PLAN: A 72-year-old male who was seen earlier this morning initially sepsis, status post secondary to right lower lobe healthcare-associated pneumonia, hypertension, chronic obstructive lung disease, atrial fibrillation, dementia, history of cerebrovascular accident that completed a course of antibiotics and the patient had tachycardia-bradycardia and required pacemaker placement, currently off of antibiotics, afebrile. Review of the orders reveals and confirms the patient to be off of antibiotics. The patient is at risk for developing nosocomial infection. Efra Craig MD
--- NOTE | 2017-08-06 19:55 | PN ---
DATE: SUBJECTIVE: The patient is a 72-year-old male. The patient is seen and examined at the bedside. Getting the feeding with PEG tube, tolerating it very well. No overnight event happened. Following simple commands, but is not oriented x3. No fever. No chills. No headache. No dizziness. The patient is a poor historian. PHYSICAL EXAMINATION: VITAL SIGNS: Temperature 99.2, pulse 84, respiratory rate 20, blood pressure 120/70, and pulse oximetry 98. HEENT: Head normocephalic, atraumatic. Eyes: PERRLA. Extraocular muscles intact. Conjunctivae clear. Nose patent. Mucous membrane moist. NECK: Supple. No carotid bruit. No JVD or thyromegaly. CHEST: Bilaterally symmetrical. HEART: S1, S2 positive. LUNGS: Clear to auscultation. ABDOMEN: Soft, has PEG tube. EXTREMITIES: No edema, no cyanosis. NEUROLOGICAL: The patient is awake and alert, but not oriented x3. MEDICATIONS: Acetaminophen, hydralazine, dextrose, diltiazem, Lopressor, and pantoprazole. LABORATORY DATA: White blood cells 6.9, hemoglobin 12.2, hematocrit 37.4, and platelets 158. Sodium 137, potassium 3.6, BUN 10, creatinine 1, and glucose 95. ASSESSMENT AND PLAN: Mr. Geo Ewing is a 72-year-old male with anemia; hyperchloremia; has ischemic stroke, seen by neurologist and neurosurgeon, need physical and occupational therapy; has dysphagia, got percutaneous endoscopic gastrostomy tube, getting feeding with the percutaneous endoscopic gastrostomy tube; status post destiny-tachyarrhythmia syndrome, ended up receiving pacemaker; hypertension; severe cardiomyopathy; sleep apnea syndrome. Continue bronchodilators, beta-blockers, tapering dose of Cardizem. We will talk to the family about rehab. ID is on the case. The patient has dementia. Continue present treatment. Gastrointestinal and deep venous thrombosis prophylaxis. Repeat labs. Out of bed, physical therapy. Mariana Fernandez MD
--- NOTE | 2017-08-07 01:06 | PN ---
DATE: 08/06/2017 PULMONARY PROGRESS NOTE REFERRING PHYSICIAN: Dr. Fernandez. SUBJECTIVE: The patient is lying in the bed, head at 45 degrees, night was unremarkable, tolerating G-tube feeding well. No cough, no sputum production, no nausea, no diarrhea, no leg swelling reported. OBJECTIVE: GENERAL: In no acute distress. VITAL SIGNS: Temperature is 98, heart rate is 80, respiratory rate is 18, blood pressure 104/69, pulse ox 98% on room air. HEENT: Moist mucous membrane. No ulcer or thrush noted. NECK: Supple. No JVD. LUNGS: Have a fair airflow with a few rhonchi. HEART: S1 and S2 ABDOMEN: Soft, nontender. No organomegaly. EXTREMITIES: No edema. NEUROLOGIC: Awake, alert. Follows simple commands. MEDICATIONS: He is on hydralazine 10 mg q. 6 hour p.r.n., Cardizem 60 mg q. 8 hours, DuoNeb q. 6 hours round the clock, Eliquis 5 mg twice a day, metoprolol tartrate 50 mg twice a day, Protonix 40 mg daily, Tylenol p.r.n. basis. LABORATORY DATA: Reviewed. Noted sodium 136, potassium , chloride 108, bicarbonate 21, BUN 11, creatinine 1.0, glucose 102, calcium 9.1, phosphorus 3.4, magnesium is 1.8. Microbiology: Blood culture was negative. IMPRESSION AND PLAN: Status post acute stroke, oropharyngeal dysphagia ended up with gastrostomy tube, destiny-tachy syndrome requiring pacemaker, hypertension, severe cardiomyopathy, may have sleep apnea syndrome. From a Pulmonary point of view, doing okay. Keep head at 45 degrees, careful with sedation, continue antibiotics, bronchodilator, aspiration precaution, gastric prophylaxis on anticoagulation, out of bed to chair, will benefit from acute inpatient rehab. Thank you and we will follow with you. Fatoumata Cruz MD
[2017-08-07] MEDS: Albuterol-Ipratrop 3 mg / 0.5 (3 ml) UD IH SCH ×3 (01:27→13:45)
[2017-08-07 06:36] LABS: HEMOGLOBIN 13.2 g/dL (14.0-18.0); MEAN CELL VOLUME 85.8 fl (80.0-105.0); MEAN CORPUSCULAR HEMOGLOBIN 27.9 pg (25.0-35.0); MEAN CORPUSCULAR HGB CONC 32.5 g/dl (31.0-37.0); MEAN PLATELET VOLUME 8.9 fl (7.0-11.0); RBC 4.73 10^6/uL (3.5-6.1); RED CELL DISTRIBUTION WIDTH 14.4 % (11.5-14.5); WHITE BLOOD COUNT 9.1 10^3/ul (4.5-11.0)
[2017-08-07 06:58] VITALS: RESP 18; O2SAT 97
[2017-08-07 07:05] LABS: BLOOD UREA NITROGEN 18 mg/dL (7-21); CALCIUM 9.5 mg/dL (8.4-10.5); GFR AFRICAN-AMERICAN > 60; GFR NON-AFRICAN AMERICAN > 60
[2017-08-07 12:40] VITALS: BP 136/96; PULSE 106; TEMP 97.9
--- NOTE | 2017-08-07 12:47 | CP.PCM.DIS ---
<RamosIeshaz - Last Filed: 08/07/17 12:41> Provider - Provider Date of Admission: 07/28/17 12:43 Attending physician: Mariana Fernandez MD Consults: Neuro - Dr. Nolasco Neuro - Dr. Mellisa HUITRON - Dr. El ENT - Dr. Lee WHELAN - Dr. Rafa See - Dr. Cruz Time Spent in preparation of Discharge (in minutes): 50 Diagnosis - Discharge Diagnosis (1) Tachy-destiny syndrome Status: Resolved (2) SSS (sick sinus syndrome) Status: Resolved (3) Malnutrition Status: Acute (4) Pulmonary hypertension Status: Acute (5) Atrial fibrillation and flutter Status: Acute (6) Systolic dysfunction with heart failure Status: Acute (7) Anemia Status: Acute (8) Pneumonia Status: Acute (9) Congestive heart failure Status: Acute (10) Pleural effusion Status: Acute (11) Right hemisphere, cerebral infarction Status: Acute (12) Facial droop as late effect of cerebrovascular accident (CVA) Status: Acute (13) Aspiration into lower respiratory tract Status: Acute Priority: High (14) Cancer of neck Status: Acute (15) Head and neck malignancy Status: Acute (16) Ischemic stroke Status: Acute Priority: High (17) Oropharyngeal aspiration Status: Acute Priority: High Hospital Course - Lab Results Lab Results: Micro Results 07/29/17 02:30 Blood-Venous Blood Culture - Final NO GROWTH AFTER 5 DAYS 07/29/17 02:30 Blood-Venous Gram Stain - Final TEST NOT PERFORMED 07/29/17 02:30 Blood-Venous Blood Culture - Final NO GROWTH AFTER 5 DAYS 07/29/17 02:30 Blood-Venous Gram Stain - Final TEST NOT PERFORMED Most Recent Lab Values WBC 9.1 10^3/ul (4.5-11.0) D 08/07/17 05:30 RBC 4.73 10^6/uL (3.5-6.1) 08/07/17 05:30 Hgb 13.2 g/dL (14.0-18.0) L 08/07/17 05:30 Hct 40.6 % (42.0-52.0) L 08/07/17 05:30 MCV 85.8 fl (80.0-105.0) 08/07/17 05:30 MCH 27.9 pg (25.0-35.0) 08/07/17 05:30 MCHC 32.5 g/dl (31.0-37.0) 08/07/17 05:30 RDW 14.4 % (11.5-14.5) 08/07/17 05:30 Plt Count 217 10^3/uL (120.0-450.0) 08/07/17 05:30 MPV 8.9 fl (7.0-11.0) 08/07/17 05:30 Gran % 82.2 % (50.0-68.0) H 08/04/17 06:49 Lymph % (Auto) 8.2 % (22.0-35.0) L 08/04/17 06:49 [place] % (Auto) 7.9 % (1.0-6.0) H 08/04/17 06:49 Eos % (Auto) 1.6 % (1.5-5.0) 08/04/17 06:49 Baso % (Auto) 0.1 % (0.0-3.0) 08/04/17 06:49 Gran # 5.68 (1.4-6.5) 08/04/17 06:49 Lymph # (Auto) 0.6 (1.2-3.4) L 08/04/17 06:49 [place] # (Auto) 0.6 (0.1-0.6) 08/04/17 06:49 Eos # (Auto) 0.1 (0.0-0.7) 08/04/17 06:49 Baso # (Auto) 0.01 K/mm3 (0.0-2.0) 08/04/17 06:49 PT 14.2 SECONDS (9.4-12.5) H 08/03/17 05:30 INR 1.23 (0.93-1.08) H 08/03/17 05:30 APTT 27.3 Seconds (25.1-36.5) 07/28/17 09:50 Sodium 138 mmol/L (132-148) 08/07/17 05:30 Potassium 4.1 mmol/L (3.6-5.0) 08/07/17 05:30 Chloride 110 mmol/L (98-107) H 08/07/17 05:30 Carbon Dioxide 23 mmol/L (21-33) 08/07/17 05:30 Anion Gap 10 (10-20) 08/07/17 05:30 BUN 18 mg/dL (7-21) 08/07/17 05:30 Creatinine 1.1 mg/dl (0.8-1.5) 08/07/17 05:30 Est GFR ( Amer) > 60 08/07/17 05:30 Est GFR (Non-Af Amer) > 60 08/07/17 05:30 POC Glucose (mg/dL) 93 mg/dL (65-110) 08/04/17 03:50 Random Glucose 116 mg/dL (70-110) H 08/07/17 05:30 Hemoglobin A1c 5.2 % (4.2-6.5) 07/30/17 06:30 Calcium 9.5 mg/dL (8.4-10.5) 08/07/17 05:30 Phosphorus 3.9 mg/dL (2.5-4.5) 08/07/17 05:30 Magnesium 1.7 mg/dL (1.7-2.2) 08/07/17 05:30 Iron 75 ug/dL (45-180) 07/29/17 12:30 TIBC 284 ug/dL (261-462) 07/29/17 12:30 % Saturation 26 % (20-55) 07/29/17 12:30 Total Bilirubin 1.0 mg/dL (0.2-1.3) 08/03/17 05:30 AST 41 U/L (17-59) 08/03/17 05:30 ALT 37 U/L (7-56) 08/03/17 05:30 Alkaline Phosphatase 49 U/L (38-126) 08/03/17 05:30 Troponin I 0.02 ng/mL D 08/02/17 06:00 Total Protein 6.8 g/dL (5.8-8.3) 08/03/17 05:30 Albumin 3.2 g/dL (3.0-4.8) 08/03/17 05:30 Globulin 3.6 gm/dL 08/03/17 05:30 Albumin/Globulin Ratio 0.9 (1.1-1.8) L 08/03/17 05:30 Triglycerides 81 mg/dL (35-160) 07/29/17 12:30 Cholesterol 112 mg/dL (130-200) L 07/29/17 12:30 LDL Cholesterol Direct 42 mg/dL (0-129) 07/29/17 12:30 HDL Cholesterol 46 mg/dL (29-60) 07/29/17 12:30 Vitamin B12 286 pg/mL (239-931) 07/29/17 12:30 Folate 12.3 ng/mL 07/29/17 12:30 Procalcitonin 0.05 NG/ML (0.19-0.49) L 07/29/17 05:20 TSH 3rd Generation 1.48 mIU/mL (0.46-4.68) 07/30/17 06:30 Influenza Typ A,B (EIA) Negative for flu a/b (NEGATIVE) 07/30/17 16:15 Blood Type O POSITIVE 07/28/17 09:50 Antibody Screen Negative 07/28/17 09:50 BBK History Checked Patient has bt 07/28/17 09:50 - Hospital Course Hospital Course: 72 yr male with history of Afib (on Xarelto), HTN, COPD, throat cancer (s/p radiation), cirrhosis, Dementia and TIA (R sided weakness). Pt admitted to [facility] for AMS, slurred speech and new L onset sided weakness. Pt was found to have acute R hemispheric infarct with occlusion of L internal carotid. R lower lobe atelectasis/peumonia also being treated. Rapid response team called for acute Afib/Aflutter on 08/01. Pt stablized w/ IV cardizem, however , occasional pauses noted. Pt is s/p AICD pacemaker insterion on 08/03. Pegtube insertion done 08/04/17. Continue aspiration precautions & NPO diet. Pt failed swallow eval x2. Pt was treate for pneumonia: with PO doxycyline, IV cefepime and IV vancomycin. Blood cultures NEGATIVE. Pt is cleared for SB in [facility]. He will continue PO cardizem, PO eliquis, and PT/OT in facility. Reviewed: CXR = 08/04 - R sided pleural effusion ECHO = LVEF 25.6% systolic function severely impaired. mild to mod pulmonary hypertension CXR = R lower lobe atelectasis/peumonia, mild congestive heart failure, with bilateral pleural effusions larger on R. CT head = WNL CT head/neck = occlusion of L internal carotid MRI brain = acute R hemispheric infarct in the distribution of the middle cerebral artery. mild amount of mass effect with cortical; edema & effacement of sulci MRA head = occlusion of L internal carotid artery w diminished flow - Date & Time of H&P Date of H&P: 08/07/17 Time of H&P: 11:30 Discharge Exam - Head Exam Head Exam: NORMAL INSPECTION Discharge Plan - Follow Up Plan Condition: GUARDED Disposition: TRANSF TO [facility] Instructions: Stroke (DC), Heart Failure (DC), Pacemaker (DC), Pulmonary Edema (DC), Malnutrition (DC), Ascites (DC) Additional Instructions: Patient being transferred to [facility] Referrals: Mariana Fernandez MD [Staff Provider] - <Mariana Fernandez - Last Filed: 08/07/17 21:52> Provider - Provider Date of Admission: 07/28/17 12:43 Attending physician: Mariana Fernandez MD Hospital Course - Lab Results Lab Results: Micro Results 07/29/17 02:30 Blood-Venous Blood Culture - Final NO GROWTH AFTER 5 DAYS 07/29/17 02:30 Blood-Venous Gram Stain - Final TEST NOT PERFORMED 07/29/17 02:30 Blood-Venous Blood Culture - Final NO GROWTH AFTER 5 DAYS 07/29/17 02:30 Blood-Venous Gram Stain - Final TEST NOT PERFORMED Most Recent Lab Values WBC 9.1 10^3/ul (4.5-11.0) D 08/07/17 05:30 RBC 4.73 10^6/uL (3.5-6.1) 08/07/17 05:30 Hgb 13.2 g/dL (14.0-18.0) L 08/07/17 05:30 Hct 40.6 % (42.0-52.0) L 08/07/17 05:30 MCV 85.8 fl (80.0-105.0) 08/07/17 05:30 MCH 27.9 pg (25.0-35.0) 08/07/17 05:30 MCHC 32.5 g/dl (31.0-37.0) 08/07/17 05:30 RDW 14.4 % (11.5-14.5) 08/07/17 05:30 Plt Count 217 10^3/uL (120.0-450.0) 08/07/17 05:30 MPV 8.9 fl (7.0-11.0) 08/07/17 05:30 Gran % 82.2 % (50.0-68.0) H 08/04/17 06:49 Lymph % (Auto) 8.2 % (22.0-35.0) L 08/04/17 06:49 [place] % (Auto) 7.9 % (1.0-6.0) H 08/04/17 06:49 Eos % (Auto) 1.6 % (1.5-5.0) 08/04/17 06:49 Baso % (Auto) 0.1 % (0.0-3.0) 08/04/17 06:49 Gran # 5.68 (1.4-6.5) 08/04/17 06:49 Lymph # (Auto) 0.6 (1.2-3.4) L 08/04/17 06:49 [place] # (Auto) 0.6 (0.1-0.6) 08/04/17 06:49 Eos # (Auto) 0.1 (0.0-0.7) 08/04/17 06:49 Baso # (Auto) 0.01 K/mm3 (0.0-2.0) 08/04/17 06:49 PT 14.2 SECONDS (9.4-12.5) H 08/03/17 05:30 INR 1.23 (0.93-1.08) H 08/03/17 05:30 APTT 27.3 Seconds (25.1-36.5) 07/28/17 09:50 Sodium 138 mmol/L (132-148) 08/07/17 05:30 Potassium 4.1 mmol/L (3.6-5.0) 08/07/17 05:30 Chloride 110 mmol/L (98-107) H 08/07/17 05:30 Carbon Dioxide 23 mmol/L (21-33) 08/07/17 05:30 Anion Gap 10 (10-20) 08/07/17 05:30 BUN 18 mg/dL (7-21) 08/07/17 05:30 Creatinine 1.1 mg/dl (0.8-1.5) 08/07/17 05:30 Est GFR ( Amer) > 60 08/07/17 05:30 Est GFR (Non-Af Amer) > 60 08/07/17 05:30 POC Glucose (mg/dL) 93 mg/dL (65-110) 08/04/17 03:50 Random Glucose 116 mg/dL (70-110) H 08/07/17 05:30 Hemoglobin A1c 5.2 % (4.2-6.5) 07/30/17 06:30 Calcium 9.5 mg/dL (8.4-10.5) 08/07/17 05:30 Phosphorus 3.9 mg/dL (2.5-4.5) 08/07/17 05:30 Magnesium 1.7 mg/dL (1.7-2.2) 08/07/17 05:30 Iron 75 ug/dL (45-180) 07/29/17 12:30 TIBC 284 ug/dL (261-462) 07/29/17 12:30 % Saturation 26 % (20-55) 07/29/17 12:30 Total Bilirubin 1.0 mg/dL (0.2-1.3) 08/03/17 05:30 AST 41 U/L (17-59) 08/03/17 05:30 ALT 37 U/L (7-56) 08/03/17 05:30 Alkaline Phosphatase 49 U/L (38-126) 08/03/17 05:30 Troponin I 0.02 ng/mL D 08/02/17 06:00 Total Protein 6.8 g/dL (5.8-8.3) 08/03/17 05:30 Albumin 3.2 g/dL (3.0-4.8) 08/03/17 05:30 Globulin 3.6 gm/dL 08/03/17 05:30 Albumin/Globulin Ratio 0.9 (1.1-1.8) L 08/03/17 05:30 Triglycerides 81 mg/dL (35-160) 07/29/17 12:30 Cholesterol 112 mg/dL (130-200) L 07/29/17 12:30 LDL Cholesterol Direct 42 mg/dL (0-129) 07/29/17 12:30 HDL Cholesterol 46 mg/dL (29-60) 07/29/17 12:30 Vitamin B12 286 pg/mL (239-931) 07/29/17 12:30 Folate 12.3 ng/mL 07/29/17 12:30 Procalcitonin 0.05 NG/ML (0.19-0.49) L 07/29/17 05:20 TSH 3rd Generation 1.48 mIU/mL (0.46-4.68) 07/30/17 06:30 Influenza Typ A,B (EIA) Negative for flu a/b (NEGATIVE) 07/30/17 16:15 Blood Type O POSITIVE 07/28/17 09:50 Antibody Screen Negative 07/28/17 09:50 BBK History Checked Patient has bt 07/28/17 09:50 - Hospital Course Hospital Course: pt is seen and examined at bed side , looking comfortable , agreed all above , chart , meds and labs noted , will f/u dc pt to [facility] for cont. of care ,
--- NOTE | 2017-08-07 13:25 | CP.PCM.PN ---
Subjective - Date & Time of Evaluation Date of Evaluation: 08/07/17 Time of Evaluation: 10:55 - Subjective Subjective: Comfortable, no fevers. Objective - Vital Signs/Intake and Output Vital Signs (last 24 hours): Temp Pulse Resp BP Pulse Ox 98.0 F 108 H 18 154/103 H 97 08/07/17 06:00 08/07/17 08:36 08/07/17 06:00 08/07/17 08:36 08/07/17 06:00 Intake and Output: 08/07/17 08/07/17 06:59 18:59 Intake Total 1240 Balance 1240 - Medications Medications: Current Medications Acetaminophen (Tylenol 650 Mg Supp) 650 mg RC Q4H PRN PRN Reason: Fever >100.4 F Last Admin: 07/29/17 06:46 Dose: 650 mg Albuterol/Ipratropium (Duoneb 3 Mg/0.5 Mg (3 Ml) Ud) 3 ml IH [id number] [facility] Last Admin: 08/07/17 08:01 Dose: 3 ml Apixaban (Eliquis) 5 mg PEG BID HEIDE PRN Reason: Protocol Last Admin: 08/07/17 10:18 Dose: 5 mg Diltiazem HCl (Cardizem) 60 mg PEG Q8 [facility] Last Admin: 08/07/17 06:30 Dose: 60 mg Hydralazine HCl (Apresoline) 10 mg IVP Q6 PRN PRN Reason: for SBP>170 Last Admin: 08/03/17 17:53 Dose: 10 mg Metoprolol Tartrate (Lopressor) 50 mg PEG BRKDIN [facility] Last Admin: 08/07/17 08:36 Dose: 50 mg Pantoprazole Sodium (Protonix Inj) 40 mg IVP DAILY [facility] Last Admin: 08/07/17 10:19 Dose: 40 mg - Labs Labs: 08/07/17 05:30 08/07/17 05:30 PT 14.2 SECONDS (9.4-12.5) H 08/03/17 05:30 INR 1.23 (0.93-1.08) H 08/03/17 05:30 APTT 27.3 Seconds (25.1-36.5) 07/28/17 09:50 - Constitutional Appears: Chronically Ill - Head Exam Head Exam: NORMAL INSPECTION - Respiratory Exam Respiratory Exam: Decreased Breath Sounds - Cardiovascular Exam Cardiovascular Exam: +S1, +S2 - GI/Abdominal Exam GI & Abdominal Exam: Soft. absent: Tenderness Assessment and Plan - Assessment and Plan (Free Text) Plan: Assessment S/P sepsis due to right lower lobe HCAP HTN COPD atrial fibrillation throat cancer dementia history of CVA of left frontal lobe liver cirrhosis Plan will continue to monitor clinically off antibiotics while the patient is in the hospital since he is at risk for hospital-acquired infections
--- NOTE | 2017-08-07 13:51 | CP.PCM.PN ---
Subjective - Date & Time of Evaluation Date of Evaluation: 08/07/17 Time of Evaluation: 13:49 - Subjective Subjective: Mr. berumen was seen and examined at the bedside. He is alert, but unable to verbalize place and time. He is able to answer some questions appropriately and follow simple commands. He remains with left side weakness. He is tolerating peg feedings. He has bilateral lower extremities SCD's. There was no untoward events overnight. Objective - Vital Signs/Intake and Output Vital Signs (last 24 hours): Temp Pulse Resp BP Pulse Ox 97.9 F 106 H 18 136/96 H 97 08/07/17 12:00 08/07/17 12:00 08/07/17 12:00 08/07/17 12:00 08/07/17 06:00 Intake and Output: 08/07/17 08/07/17 06:59 18:59 Intake Total 1240 Balance 1240 - Medications Medications: Current Medications Acetaminophen (Tylenol 650 Mg Supp) 650 mg RC Q4H PRN PRN Reason: Fever >100.4 F Last Admin: 07/29/17 06:46 Dose: 650 mg Albuterol/Ipratropium (Duoneb 3 Mg/0.5 Mg (3 Ml) Ud) 3 ml IH [id number] [facility] Last Admin: 08/07/17 13:45 Dose: 3 ml Apixaban (Eliquis) 5 mg PEG BID [facility] PRN Reason: Protocol Last Admin: 08/07/17 10:18 Dose: 5 mg Diltiazem HCl (Cardizem) 60 mg PEG Q8 [facility] Last Admin: 08/07/17 06:30 Dose: 60 mg Hydralazine HCl (Apresoline) 10 mg IVP Q6 PRN PRN Reason: for SBP>170 Last Admin: 08/03/17 17:53 Dose: 10 mg Metoprolol Tartrate (Lopressor) 50 mg PEG BRKDIN [facility] Last Admin: 08/07/17 08:36 Dose: 50 mg Pantoprazole Sodium (Protonix Inj) 40 mg IVP DAILY [facility] Last Admin: 08/07/17 10:19 Dose: 40 mg - Labs Labs: 08/07/17 05:30 08/07/17 05:30 PT 14.2 SECONDS (9.4-12.5) H 08/03/17 05:30 INR 1.23 (0.93-1.08) H 08/03/17 05:30 APTT 27.3 Seconds (25.1-36.5) 07/28/17 09:50 - Constitutional Appears: No Acute Distress - Head Exam Head Exam: NORMAL INSPECTION - Neurological Exam Neurological Exam: Alert, Awake Neuro motor strength exam: Left Upper Extremity: 2/1, Right Upper Extremity: 4, Left Lower Extremity: 2/1, Right Lower Extremity: 4 Additional comments: Neurological unchanged from previous examination. Assessment and Plan (1) Ischemic stroke Assessment & Plan: Case discussed with Dr. Pak, continue all current medical, physical, occupational, and speech therapies. Recommend rehab placement for discharge planning, and blood pressure control. Status: Acute
--- NOTE | 2017-08-07 16:20 | PN ---
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 SUBJECTIVE: The patient denies any chest pain, shortness of breath, denied any palpitation. OBJECTIVE: GENERAL: Not in any apparent distress. VITAL SIGNS: Temperature afebrile, heart rate 108, blood pressure 154/103. HEENT: PERRLA. Extraocular muscles are intact. NECK: Supple. No carotid bruit. No thyromegaly. CHEST: Clear to auscultation. HEART: S1 and S2 regular. ABDOMEN: Soft. EXTREMITIES: Clubbing and cyanosis negative. LABORATORY DATA: Blood workup are as follows: WBC 9.2, hemoglobin 13.2, hematocrit 40.6, platelet count 217,000. Chemistry shows sodium of 130, potassium 4.0, chloride 110, carbon dioxide 23, anion gap 10, BUN 18, creatinine 1.1. IMPRESSION: Chronic atrial fibrillation, sick sinus syndrome with status post permanent pacemaker, bradycardia with atrial fibrillation with slow rate, tachy-destiny syndrome, swallowing difficulty, status post percutaneous endoscopic gastrostomy placement. RECOMMENDATIONS: We will start Cardizem p.o. through the feeding tube. Discontinue Cardizem drip. I will start of with Lopressor 50 mg. We will start Xarelto also. We will discontinue telemetry. Last echo showed ejection fraction of 25%, mild to moderate tricuspid regurgitation, mild mitral regurgitation, right ventricular systolic pressure of 31. Dr. Torres started Eliquis 5 mg p.o. b.i.d., also started Cardizem 60 mg q. 8h. and metoprolol 50 mg b.i.d., we will continue. We have started free fluid through the PEG. Discontinue IV fluid, and we will discontinue telemetry. Thank you, Dr. Fernandez, for providing us the opportunity in taking care of the patient, Geo Ewing. Fatoumata Huynh MD
== END 2017-08-07 15:47 | DRG 40 ==
LOC: ED 08:59 → ERH 12:43 → UNDODISIN 14:44 → 2RNO 14:47
PROVIDERS: ADMIT Internal Medicine; ATTEND Internal Medicine
PROC: 3E0F7GC Introduction of Other Therapeutic Substance into Respiratory Tract, Via Natural or Artificial Opening (ICD-10-PCS; 2017-07-30)
PROC: 0JH605Z Insertion of Pacemaker, Single Chamber Rate Responsive into Chest Subcutaneous Tissue and Fascia, Open Approach (ICD-10-PCS; principal; 2017-08-03)
PROC: 02HK3JZ Insertion of Pacemaker Lead into Right Ventricle, Percutaneous Approach (ICD-10-PCS; 2017-08-03)
PROC: 0DH63UZ Insertion of Feeding Device into Stomach, Percutaneous Approach (ICD-10-PCS; 2017-08-04)
PROC: 0DJ08ZZ Inspection of Upper Intestinal Tract, Via Natural or Artificial Opening Endoscopic (ICD-10-PCS; 2017-08-04)
PROC: 3E0G76Z Introduction of Nutritional Substance into Upper GI, Via Natural or Artificial Opening (ICD-10-PCS; 2017-08-05)
DX: I63.511 Cerebral infarction due to unspecified occlusion or stenosis of right middle cerebral artery (principal); A41.9 Sepsis, unspecified organism; J69.0 Pneumonitis due to inhalation of food and vomit; I50.21 Acute systolic (congestive) heart failure; E46 Unspecified protein-calorie malnutrition; I27.20 Pulmonary hypertension, unspecified; G81.94 Hemiplegia, unspecified affecting left nondominant side; R13.12 Dysphagia, oropharyngeal phase; I08.1 Rheumatic disorders of both mitral and tricuspid valves; I42.9 Cardiomyopathy, unspecified; I48.2 Chronic atrial fibrillation; I48.92 Unspecified atrial flutter; R41.4 Neurologic neglect syndrome; Z68.1 Body mass index [BMI] 19.9 or less, adult; I49.5 Sick sinus syndrome; I11.0 Hypertensive heart disease with heart failure; D64.9 Anemia, unspecified; J44.9 Chronic obstructive pulmonary disease, unspecified; K74.60 Unspecified cirrhosis of liver; F03.90 Unspecified dementia, unspecified severity, without behavioral disturbance, psychotic disturbance, mood disturbance, and anxiety; K40.90 Unilateral inguinal hernia, without obstruction or gangrene, not specified as recurrent; R29.704 NIHSS score 4; I65.22 Occlusion and stenosis of left carotid artery; I69.392 Facial weakness following cerebral infarction; E87.6 Hypokalemia; G47.30 Sleep apnea, unspecified; Y95 Nosocomial condition; F17.200 Nicotine dependence, unspecified, uncomplicated; Z79.01 Long term (current) use of anticoagulants; Z85.819 Personal history of malignant neoplasm of unspecified site of lip, oral cavity, and pharynx; Z87.81 Personal history of (healed) traumatic fracture; Z92.3 Personal history of irradiation

== ENCOUNTER 2017-11-25 21:11 | Inpatient (IN) | payer MEDICARE, OTHER ==
[2017-11-25 21:12] VITALS: PULSE 75
--- NOTE | 2017-11-25 21:54 | ED PDOC ---
Arrival/HPI - General Chief Complaint: Seizure Time Seen by Provider: 11/25/17 21:15 Historian: Patient - History of Present Illness Narrative History of Present Illness (Text): 11/25/17 21:48 72 year old male, with past medical history of A-fib on Eliquis, hypertension, COPD, throat cancer, cirrhosis, dementia, TIA, and CVA (01/2017) with right sided hemiparesis, presents to the Emergency department for evaluation following a witnessed seizure at 5pm today according to collateral information attained. Patient is transferred from [facility] for medical evaluation. Upon arrival to the Emergency department, patient is awake and alert , but does not recall the event. Patient does not remember any head trauma or loss of consciousness. Patient denies any headache, chest pain, shortness of breath, neck pain, back pain, fever, chills, nausea, vomiting, diarrhea, abdominal pain or any other complaints. PMD: Dr. Fernandez Time/Duration: Other (5pm) Symptom Onset: Sudden Symptom Course: Improving Activities at Onset: Light Context: Other ([facility]) Past Medical History - Provider Review Nursing Documentation Reviewed: Yes - Infectious Disease Hx of Infectious Diseases: None - Cardiac Hx Cardiac Disorders: Yes Hx Hypertension: Yes - Pulmonary Hx Chronic Obstructive Pulmonary Disease (COPD): Yes - Neurological HX Cerebrovascular Accident: Yes (TIA 02/12) - HEENT Hx HEENT Disorder: No - Renal Hx Renal Disorder: No - Endocrine/Metabolic Hx Endocrine Disorders: No - Hematological/Oncological Hx Blood Transfusions: No Hx Blood Transfusion Reaction: No - Integumentary Hx Dermatological Disorder: Yes Other/Comment: multiple ble skin discolorations, laceration above left eyelid - Musculoskeletal/Rheumatological Hx Musculoskeletal Disorders: Yes Hx Falls: Yes Hx Fractures: Yes (CLOSED FX ACETABULUM) - Gastrointestinal Hx Gastrointestinal Disorders: Yes (L INGUINAL HERNIA) Hx Liver Failure: Yes (cirrhosis) - Psychiatric Hx Psychophysiologic Disorder: Yes Hx Depression: Yes Hx Substance Use: No - Surgical History Hx Inguinal Hernia Repair: Yes (right) - Anesthesia Hx Anesthesia Reactions: No Hx Malignant Hyperthermia: No - Suicidal Assessment Feels Threatened In Home Enviroment: No Family/Social History - Physician Review Nursing Documentation Reviewed: Yes Family/Social History: No Known Family HX Smoking Status: Former Smoker Hx Alcohol Use: No Hx Substance Use: No Allergies/Home Meds Allergies/Adverse Reactions: Allergies No Known Allergies Allergy (Verified 07/28/17 13:29) Review of Systems - Physician Review All systems were reviewed & negative as marked: Yes - Review of Systems Constitutional: Normal. absent: Fevers Eyes: Normal ENT: Normal Respiratory: Normal. absent: SOB Cardiovascular: Normal. absent: Chest Pain Gastrointestinal: Normal. absent: Abdominal Pain, Diarrhea, Nausea, Vomiting Genitourinary Male: Normal Musculoskeletal: Normal. absent: Back Pain, Neck Pain Skin: Normal Neurological: Seizure. absent: Headache Endocrine: Normal Hemo/Lymphatic: Normal Psychiatric: Normal Physical Exam Vital Signs Reviewed: Yes Vital Signs Temp Pulse Resp BP Pulse Ox 11/25/17 21:32 98.5 F 108 H 20 153/97 H 100 Temperature: Afebrile Blood Pressure: Hypertensive Pulse: Tachycardic Respiratory Rate: Normal Appearance: Positive for: Well-Appearing, Non-Toxic, Comfortable Pain Distress: None Mental Status: Positive for: Alert and Oriented X 3 - Systems Exam Head: Present: Atraumatic, Normocephalic Pupils: Present: PERRL Extroacular Muscles: Present: EOMI Conjunctiva: Present: Normal Mouth: Present: Moist Mucous Membranes Neck: Present: Normal Range of Motion Respiratory/Chest: Present: Clear to Auscultation, Good Air Exchange. No: Respiratory Distress, Accessory Muscle Use Cardiovascular: Present: Regular Rate and Rhythm, Normal S1, S2. No: Murmurs Abdomen: No: Tenderness, Distention, Peritoneal Signs Back: Present: Normal Inspection Upper Extremity: Present: Normal Inspection. No: Cyanosis, Edema Lower Extremity: Present: Normal Inspection. No: Edema Neurological: Present: GCS=15, CN II-XII Intact, Speech Normal, Other (right sided hemiparesis) Skin: Present: Warm, Dry, Normal Color. No: Rashes Psychiatric: Present: Alert, Oriented x 3, Normal Insight, Normal Concentration Medical Decision Making ED Course and Treatment: 11/25/17 21:48 Impression: 72 year old male presents to the Emergency department for evaluation of witnessed seizure. Differential Diagnosis included but are not limited to: Seizure Plan: -- CT of Head -- EKG -- Labs -- CXR -- Reassess and disposition Prior Visits: Notes and results from previous visits were reviewed. Progress Notes: 11/25/17 23:57 Chest X-ray reviewed, shows no acute processes. 11/26/17 00:44 CT head reviewed by radiologist, shows: Age-appropriate atrophy and chronic microvascular change. 11/26/17 02:51 EKG: Ordered, reviewed, and independently interpreted the EKG. Rate : 107 BPM Rhythm : A-fib Interpretation : Non Specific ST/T wave changes. 11/26/17 02:[address] Fernandez, who is aware and agrees with Emergency department management plan, accepts patient under her service to Telemetry/ Observation. Remains questionable regarding history of syncopal episode and possible seizure. As per request, Dr. Rivera will be on neurology consult. - Lab Interpretations Lab Results: 11/25/17 21:50 11/25/17 21:50 Lab Results 11/25/17 21:50: WBC 7.0 D, RBC 4.27, Hgb 11.4 L, Hct 34.0 L, MCV 79.6 L D, MCH 26.7, MCHC 33.5, RDW 13.9, Plt Count 338, MPV 8.3 11/25/17 21:50: Sodium 134, Potassium 4.1, Chloride 99, Carbon Dioxide 25, Anion Gap 15, BUN 19, Creatinine 0.9, Est GFR ( Amer) > 60, Est GFR (Non- Af Amer) > 60, Random Glucose 95, Calcium 9.3, Total Bilirubin 0.6, AST 50, ALT 45, Alkaline Phosphatase 71, Lactate Dehydrogenase 603, Total Creatine Kinase 224, Troponin I 0.01 D, Total Protein 7.8, Albumin 3.7, Globulin 4.1, Albumin/ Globulin Ratio 0.9 L 11/25/17 21:50: PT 19.3 H, INR 1.68 H, APTT 30.9 - RAD Interpretation Radiology Orders: 11/25/17 21:48 HEAD W/O CONTRAST [CT] Stat CHEST PORTABLE [RAD] Stat Glass Sander: ED Physician, Radiologist - EKG Interpretation Interpreted by ED Physician: Yes Type: 12 lead EKG - Scribe Statement The provider has reviewed the documentation as recorded by the Scribe Hao Lara. All medical record entries made by the Scribe were at my direction and personally dictated by me. I have reviewed the chart and agree that the record accurately reflects my personal performance of the history, physical exam, medical decision making, and the department course for this patient. I have also personally directed, reviewed, and agree with the discharge instructions and disposition. Disposition/Present on Arrival - Present on Arrival Any Indicators Present on Arrival: No History of DVT/PE: No History of Uncontrolled Diabetes: No Urinary Catheter: No History of Decub. Ulcer: No History Surgical Site Infection Following: None - Disposition Have Diagnosis and Disposition been Completed?: Yes Diagnosis: Syncope, Seizure Disposition: HOSPITALIZED Disposition Time: 02:53 Patient Plan: Observation Patient Problems: Current Active Problems Problem Status Onset Seizure Acute Syncope Acute Condition: STABLE Discharge Instructions (ExitCare): Syncope (ED) Referrals: Mariana Fernandez MD [Primary Care Provider] - Follow up with primary Forms: [facility] ([place])
[2017-11-25 22:03] LABS: HEMOGLOBIN 11.4 g/dL (14.0-18.0); MEAN CELL VOLUME 79.6 fl (80.0-105.0); MEAN CORPUSCULAR HEMOGLOBIN 26.7 pg (25.0-35.0); MEAN CORPUSCULAR HGB CONC 33.5 g/dl (31.0-37.0); MEAN PLATELET VOLUME 8.3 fl (7.0-11.0); RBC 4.27 10^6/uL (3.5-6.1); RED CELL DISTRIBUTION WIDTH 13.9 % (11.5-14.5)
[2017-11-25 22:13] LABS: INR 1.68 (0.93-1.08); PARTIAL THROMBOPLASTIN TIME 30.9 Seconds (25.1-36.5); PROTHROMBIN TIME 19.3 SECONDS (9.4-12.5)
[2017-11-25 22:15] LABS: ALB/GLOB RATIO 0.9 (1.1-1.8); ALBUMIN 3.7 g/dL (3.0-4.8); ALT/SGPT 45 U/L (7-56); AST/SGOT 50 U/L (17-59); BLOOD UREA NITROGEN 19 mg/dL (7-21); CALCIUM 9.3 mg/dL (8.4-10.5); GFR AFRICAN-AMERICAN > 60; GFR NON-AFRICAN AMERICAN > 60
[2017-11-25 22:26] LABS: TROPONIN I 0.01 ng/mL
--- NOTE | 2017-11-26 08:42 | CT ---
PROCEDURE: CT HEAD WITHOUT CONTRAST. HISTORY: seizure COMPARISON: None available. TECHNIQUE: Axial computed tomography images were obtained through the head/brain without intravenous contrast. Radiation dose: Total exam DLP = 896.78 mGy-cm. This CT exam was performed using one or more of the following dose reduction techniques: Automated exposure control, adjustment of the mA and/or kV according to patient size, and/or use of iterative reconstruction technique. FINDINGS: HEMORRHAGE: No intracranial hemorrhage. BRAIN: No mass effect or edema. Encephalomalacia change related to left frontal infarction. Encephalomalacia change right frontal parietal region the sequela of prior infarcts. Additional area of cortical infarction convexity right parietal lobe. VENTRICLES: Unremarkable. No hydrocephalus. CALVARIUM: Unremarkable. PARANASAL SINUSES: Unremarkable as visualized. No significant inflammatory changes. MASTOID AIR CELLS: Unremarkable as visualized. No inflammatory changes. OTHER FINDINGS: None. IMPRESSION: No acute findings. There is a subacute cortical infarction identified August 03, 2017 are now encephalomalacia regions. Underlying atrophy identified.
--- NOTE | 2017-11-26 10:25 | RAD ---
HISTORY: Fever COMPARISON: 08/04/2017. FINDINGS: LUNGS: No active pulmonary disease. PLEURA: No significant pleural effusion identified, no pneumothorax apparent. CARDIOVASCULAR: No radiographic findings to suggest acute or significant cardiovascular disease. Position/ configuration of pacemaker device: Satisfactory. OSSEOUS STRUCTURES: No significant abnormalities. VISUALIZED UPPER ABDOMEN: Normal. OTHER FINDINGS: None. IMPRESSION: No active disease. No significant interval change compared to the prior examination(s).
[2017-11-26 12:41] LABS: HDL CHOLESTEROL 47 mg/dL (29-60)
[2017-11-26 12:44] LABS: IRON 68 ug/dL (45-180)
[2017-11-26 12:53] LABS: % IRON SATURATION 22 % (20-55); LDL CHOLESTEROL 64 mg/dL (0-129); TOTAL IRON BINDING CAPACITY 314 ug/dL (261-462)
--- NOTE | 2017-11-26 17:01 | CARD ---
APPROVED REPORT EKG Measurement Heart [id number] <Conclusion> A Fib with RVR Voltage criteria for left ventricular hypertrophy Marked ST abnormality, possible inferior subendocardial injury Abnormal ECG
[2017-11-26 17:20] LABS: FOLATE > 20.0 ng/mL
--- NOTE | 2017-11-27 01:56 | CON ---
DATE: 11/26/2017 This is [facility] visit on the telemetry floor. Consult for Dr. Phipps on the telemetry floor. CHIEF COMPLAINT: Witnessed seizure, weight loss. HISTORY OF PRESENT ILLNESS: The patient is a 72-year-old black male with past medical history significant for atrial fibrillation, COPD, dementia, TIA, CVA with right hemiparesis, having had a witnessed seizure early yesterday with transfer from [facility] as per Dr. Llamas, his primary doctor with the patient postictal in the Emergency Room not recalling the event with denying any trauma or loss of consciousness. At present, he appears in no acute distress with the patient known to have a PEG tube, which has not been used as the patient is tolerating p.o. better than previous visits according to Dr. Fernandez. The patient has a history of throat cancer, which is not readily available as he may have been treated at different facility with this information not apparent. However, the patient was hospitalized earlier this year with evaluation by Dr. Howard, Ear, Nose, and Throat design consultant in 08/13 with the patient having had a left radical neck dissection with subsequent radiation with evaluation at that time Dr. Howard reporting the patient having had brian aspiration of secretions during the exam with no masses seen at that time. At present, he appears to be in no acute distress. ALLERGIES: NO KNOWN ALLERGIES. MEDICATIONS: The patient's meds at this point include Eliquis, Lopressor, Pepcid, Tylenol, and Zofran. PAST MEDICAL HISTORY: Significant for atrial fibrillation, hypertension, history of throat cancer, alcohol abuse with cirrhosis, dementia, history of tobacco use, COPD, status post previous left frontal lobe infarct with left-sided hemiparesis with aspiration, status post PEG tube placement. The patient is also status post heart failure with pacer, history of pulmonary edema, malnutrition. The pacer was for tachybrady syndrome with severe cardiomyopathy. SOCIAL HISTORY: History of increased tobacco use, history of alcohol abuse, otherwise noncontributory. REVIEW OF SYSTEMS: Twelve-point review of systems is done, which was negative to questioning except for items mentioned in the history of present illness. PHYSICAL EXAMINATION: VITAL SIGNS: Temperature 98, pulse 109, respirations 18, blood pressure 170/96, pulse ox 98%. HEENT: Unremarkable. Tongue is moist. NECK: Supple. HEART: Regular rate, occasional ectopic beat. LUNGS: Clear. ABDOMEN: Soft with a viable functional PEG tube. EXTREMITIES: No edema. History of right hemiparesis with decreased use of the right upper extremity. SKIN: Warm and dry. NEUROLOGIC: Awake and alert. The patient also has a pacer. LABORATORY DATA: The patient's labs were done. White blood cell count 7, hemoglobin 11.4, hematocrit of 34, platelet count of 338,000 with a chem metabolic panel completely within normal range. Iron saturation of 22. His INR is 1.68. The patient's other tests include a chest x-ray done yesterday. It was read as no active disease, no significant interval change compared to prior exams. The CAT scan of his head was done yesterday. It was read as no acute findings, subacute cortical infarction identified on 08/03/2017 are now encephalomalacia regions, underlying atrophy identified. He had an EKG done which was read by the emergency room doctor with rate of 107 with AFib, nonspecific ST-T changes. ASSESSMENT: For this patient is that of witnessed seizure activity, history of cerebrovascular accident, transient ischemic attack, right hemiparesis, dementia, history of throat cancer, chronic obstructive pulmonary disease, hypertension, atrial fibrillation, status post pacemaker, ethanol abuse history, cardiomyopathy, and also weight loss, questionable. PLAN: For this patient after conversation with Dr. Phipps is to continue present medical regimen with his Eliquis continuing. Medications at this point include Eliquis, Lopressor, Pepcid, Tylenol, and Zofran. Eliquis is to continue. We will ask for consult with Dr. Rivera regarding his questionable seizure activity with testing as per findings. We will repeat his labs in the morning including TSH with recommendations for a swallowing evaluation with considerations for a calorie count. We will also order for a CEA value with consideration for a PET CT scan once he is able to be discharged as this is not done in the hospital due to insurance issues. The patient is now on a modified consistency diet. We will stop his heart healthy diet, which is recommended by the emergency room doctor with further recommendations once the results of testing as above is known. Prognosis for this patient is guarded. Also, consideration for seizure prophylaxis as per Dr. Rivera. This is a complex patient with a comprehensive medically necessary and appropriate visit carried out in excess of 45 minutes with half that time spent with [id number] contact with the patient with the history obtained from Dr. Fernandez at the bedside, also with the patient's previous hospitalization records reviewed at length. We will also ask for a calorie count. Ck Warren MD
--- NOTE | 2017-11-27 07:03 | HP ---
DATE OF EXAM: 11/26/2017 CHIEF COMPLAINT: Seizure. HISTORY OF PRESENT ILLNESS: Mr. Geo Ewing is a 72-year-old male with past medical history of atrial fibrillation on Eliquis, hypertension, COPD, throat cancer, cirrhosis of the liver, dementia, TIA, CVA with right-sided hemiparesis, came to the emergency room for evaluation of dizziness with seizures at 05:00 p.m. on the day of admission. collateral information , patient transferred from [facility] to [facility] upon my request by EMT, but does not recall the event. Patient does not remember any head injury or loss of consciousness. Patient denies any headache, nausea, vomiting or diarrhea. Patient is a poor historian. Dr. Dakotah Juarez covering for Dr. Phipps was standing on the bedside also. PAST MEDICAL HISTORY: Hypertension, COPD, TIA, multiple skin discolorations, laceration above the left eyelid, history of closed acetabulum fracture, inguinal hernia, cirrhosis, depression. FAMILY HISTORY: Father and mother noncontributory. HABITS: Former smoker, now not smoking. No drugs. No ethanol. ALLERGIES: THE PATIENT IS NOT ALLERGIC WITH ANY MEDICATIONS. REVIEW OF SYSTEMS: The patient was seen and examined at the bedside. Looking comfortable. No shortness of breath. No fever. No chills. No headache. No dizziness. No hematuria. No hematochezia. PHYSICAL EXAMINATION: VITAL SIGNS: Temperature 98.5, pulse 108, respiratory rate 20, blood pressure 120/97 . HEENT: Head: Normocephalic, atraumatic. Eyes: PERRLA. Extraocular muscles are intact. Conjunctivae are clear. Nose patent. Mucous membrane moist. NECK: Supple. No carotid bruits, JVD or thyromegaly. CHEST: Bilaterally symmetrical. HEART: S1 and S2 positive. LUNGS: Clear to auscultation. ABDOMEN: Soft, nontender, having PEG tube, looks like has discontinued. EXTREMITIES: No edema, no cyanosis. NEUROLOGIC: Patient is awake and alert, follows simple commands, but he is not a good historian. LABORATORY DATA: White blood cells 7, hemoglobin 11.4, hematocrit 34, platelets 338. Sodium 134, potassium 4.1, BUN 19, creatinine 0.9. Glucose 95. ASSESSMENT AND PLAN: Mr. Geo Ewing is a 72-year-old male with anemia, came with syncopal attack, new onset seizures witnessed by [facility] staff, history of atrial fibrillation - on Eliquis, hypertension, chronic obstructive pulmonary disease, throat cancer, cirrhosis, dementia, transient ischemic attack, cerebrovascular accident in 01/2017. We admitted the patient. Neurology consult called with Dr. Rivera. CAT scan of the head was done. Consult called with Oncology. Hypertension, restarted patient on metoprolol. Gastrointestinal prophylaxis was given. Zofran was started. Tylenol for mild pain. Length of time discussion done with Dr. Dakotah Juarez covering Dr. Phipps about patient's losing in the [facility]. Gastrointestinal and deep venous thrombosis prophylaxis. Repeat labs. We will follow up. Mariana Fernandez MD JAMES
[2017-11-27 07:25] LABS: BLOOD UREA NITROGEN 23 mg/dL (7-21); CALCIUM 9.4 mg/dL (8.4-10.5); GFR AFRICAN-AMERICAN > 60; GFR NON-AFRICAN AMERICAN 60
[2017-11-27 07:29] LABS: HEMOGLOBIN 12.7 g/dL (14.0-18.0); MEAN CELL VOLUME 80.5 fl (80.0-105.0); MEAN CORPUSCULAR HEMOGLOBIN 26.3 pg (25.0-35.0); MEAN CORPUSCULAR HGB CONC 32.7 g/dl (31.0-37.0); RBC 4.82 10^6/uL (3.5-6.1); RED CELL DISTRIBUTION WIDTH 13.9 % (11.5-14.5); WHITE BLOOD COUNT 6.9 10^3/ul (4.5-11.0)
--- NOTE | 2017-11-27 09:59 | CP.PCM.PN ---
Subjective - Date & Time of Evaluation Date of Evaluation: 11/27/17 Time of Evaluation: 07:40 - Subjective Subjective: Praneeth Mata PGY-[address] Phipps. Pt seen and examined at bedside. Pt did not respond to questions or commands. History of vascular dementia, and at baseline is nonverbal. Objective - Vital Signs/Intake and Output Vital Signs (last 24 hours): Temp Pulse Resp BP Pulse Ox 98.1 F 112 H 19 110/72 94 L 11/27/17 06:00 11/27/17 09:53 11/27/17 06:00 11/27/17 09:53 11/27/17 06:00 Intake and Output: 11/27/17 11/27/17 06:59 18:59 Intake Total 120 Balance 120 - Medications Medications: Current Medications Acetaminophen (Tylenol 325mg Tab) 650 mg PO Q4H PRN PRN Reason: pain fever Apixaban (Eliquis) 5 mg PO BID [facility] PRN Reason: Protocol Last Admin: 11/27/17 09:53 Dose: 5 mg Famotidine (Pepcid) 40 mg PO HS [facility] Last Admin: 11/26/17 22:00 Dose: 40 mg Metoprolol Tartrate (Lopressor) 50 mg PO DAILY [facility] Last Admin: 11/27/17 09:53 Dose: 50 mg Ondansetron HCl (Zofran Inj) 4 mg IVP Q6 PRN PRN Reason: Nausea/Vomiting - Labs Labs: 11/27/17 06:30 11/27/17 06:30 PT 19.3 SECONDS (9.4-12.5) H 11/25/17 21:50 INR 1.68 (0.93-1.08) H 11/25/17 21:50 APTT 30.9 Seconds (25.1-36.5) 11/25/17 21:50 - Constitutional Appears: Chronically Ill - Head Exam Head Exam: ATRAUMATIC - Respiratory Exam Respiratory Exam: Clear to Ausculation Bilateral, NORMAL BREATHING PATTERN - Cardiovascular Exam Cardiovascular Exam: REGULAR RHYTHM, RRR, +S1, +S2 - GI/Abdominal Exam GI & Abdominal Exam: Normal Bowel Sounds - Rectal Exam Rectal Exam: Deferred - Extremities Exam Extremities Exam: Normal Inspection - Neurological Exam Neurological Exam: Awake Additional comments: neuro exam limited due to pt inability to follow and obey commands. - Psychiatric Exam Psychiatric exam: Flat Affect - Skin Skin Exam: Normal Color Assessment and Plan - Assessment and Plan (Free Text) Plan: 72 year old male, with past medical history of A-fib on Eliquis, hypertension, COPD, throat cancer s/p left radical neck dissection with radiation therapy, cirrhosis, dementia, TIA, and CVA (01/2017) with right sided hemiparesis, presents to the Emergency department for evaluation following a witnessed seizure at 5pm today according to collateral information attained. CT of the head showed No acute findings. There is a subacute cortical infarction identified August 03, 2017 are now encephalomalacia regions. Underlying atrophy identified. Per neurology, Dr Rivera, EEG ordered. Discussed the possibility of metastases from head and neck cancer and the utility of MRI. Pt started on prophylaxis Keppra and continuing Beta yessenia and Eliquis, per primary. [place] [facility] [place] and treatments related to pt cancer. Would recommend MRI to rule out metastatic lesions to the brain.
[2017-11-27] MEDS: levETIRAcetam 500mg IVPB 500 MG/100 ML BAG IV SCH ×2 (11:32→21:42)
--- NOTE | 2017-11-27 15:01 | CON ---
DATE: 11/27/2017 CHIEF COMPLAINT: Seizure. HISTORY OF PRESENT ILLNESS: A 72-year-old man with past medical history of bilateral MCA territory infarct with right spastic hemiplegia, which is in 07/29/2017; history of cirrhosis of liver; history of vascular dementia; TIA; COPD; atrial fibrillation, on Eliquis and left carotid artery stenosis who came in to the Emergency Room for evaluation of dizziness at 05:00 p.m. and questionable seizure-like event and the patient does not remember the event at all. He has also a history of head and neck cancer, which Dr. Phipps is evaluating. CAT scan of the head show bilateral encephalomalacia in the left frontal and right frontoparietal and right temporal areas. Currently, the patient responds to commands, he follows simple commands though he is alert and oriented to person and place, not much to month or year. He is slow to respond. Poor insight. Poor attention span. Slow thought process. He answers questions appropriately. He has chronic right-sided weakness as well as bilateral weakness overall from bilateral CVAs. PAST MEDICAL HISTORY: As above. SOCIAL HISTORY: No illicit drug use, smoking, or EtOH abuse at this time. FAMILY HISTORY: Noncontributory. ALLERGIES: NO KNOWN DRUG ALLERGIES. MEDICATIONS: Reviewed by nurse per reconciliation sheet. LABORATORY DATA: Sodium is 126, potassium 4.2, chloride 90, carbon dioxide 27. BUN of 23, creatinine 1.2. Random glucose of 84. PHYSICAL EXAMINATION: VITAL SIGNS: Temperature of 98.1, pulse rate of , blood pressure 120/87, respiratory rate 19, oxygen saturation 98% via nasal cannula. GENERAL: The patient is sitting up in bed, in no acute distress. HEENT: Atraumatic, normocephalic. PERRLA. Extraocular muscles intact. NECK: Supple. No JVD. No adenopathy noted. LUNGS: Clear to auscultation. No adventitious sounds. HEART: S1, S2. Normal rate and rhythm. No murmurs, rubs or gallops. ABDOMEN: Soft, nontender and nondistended. Bowel sounds are present. EXTREMITIES: No clubbing. No cyanosis. Peripheral pulses 2+ felt bilaterally. NEUROLOGIC: The patient is alert and oriented to person and place, not much to month or year. Poor attention span and slow thought process. Recall is 0/3, flat affect. Cranial nerves II through XII intact. Motor exam: Spastic, bilateral weakness mostly on the right when compared to left as 4/5 throughout, from bilateral CVAs. Sensory exam, light touch intact. DTRs are 1+ throughout. Coordination: Gait deferred for now. ASSESSMENT AND PLAN: This is a 72-year-old man with past medical history of bilateral cerebrovascular accident especially in the left frontal and right frontoparietal as well as temporal areas, last being 07/2017 with a left internal carotid artery stenosis. History of atrial fibrillation, on Eliquis; hypertension; chronic obstructive pulmonary disease; history of throat cancer, being managed by Oncology, he had a witnessed seizure, his witness seizure is secondary to bilateral encephalomalacia in the left frontal and right frontal and parietal areas, which is a seizure focus. At this time, we will recommend, 1. We will place him on Keppra 500 mg p.o. b.i.d. for seizure prophylaxis. 2. Delirium precaution is advised. 3. Keep his systolic blood pressure between 130s to 140s and diastolic 70s to 80s. 4. He should be rate controlled due to his underlying tachycardia, history of atrial fibrillation. 5. MRI of the brain and EEG. Thank you for this consult. Sunil Rivera MD
--- NOTE | 2017-11-28 00:26 | PN ---
DATE: 11/27/2017 SUBJECTIVE: The patient was seen and examined on the bedside, looking comfortable. No nausea, vomiting, diarrhea. No hematuria or hematochezia. No swelling of the legs. No chest pain. No palpitation. No headache. No dizziness. PHYSICAL EXAMINATION: VITAL SIGNS: Temperature 98, heart rate 80, blood pressure 120/87, respiratory rate 18, oxygen saturation 98%. HEENT: Head normocephalic, atraumatic. Eyes PERRLA. Extraocular muscles intact. Conjunctivae clear. Nose patent. Mucous membrane moist. NECK: Supple. No carotid bruit. No JVD or thyromegaly. CHEST: Bilaterally symmetrical. HEART: S1 and S2 positive. LUNGS: Clear to auscultation. ABDOMEN: Soft. Bowel sounds positive. No organomegaly. EXTREMITIES: No edema. No cyanosis. NEUROLOGICAL: The patient is awake and alert. Moving all 4 extremities. No focal deficits. MEDICATIONS: Eliquis, Keppra, Lopressor, Pepcid, Tylenol, Zofran. LABORATORY DATA: White blood cells 6.9, hemoglobin 12.7, hematocrit 38.8, platelets 345. Sodium 136, potassium 4.2, BUN 23, creatinine 1.2. ASSESSMENT AND PLAN: Mr. Geo Ewing, 72-year-old male with anemia, new onset seizures, syncopal attack, history of atrial fibrillation, Eliquis, hypertension, chronic obstructive pulmonary disease, throat cancer, status post left radical neck dissection with radiation therapy, cirrhosis of the liver, mild dementia, transient ischemic attack, cerebrovascular accident with right-sided hemiparesis. CT of the head shows no acute findings. CAT scan and EEG reviewed. Discussed with possibility of metastasis from head and neck cancer and the utility of MRI. The patient started on prophylaxis, Keppra and continue beta blockers and Eliquis per vulcanizer operator. The patient was referred to [facility]. Accordingly to neurologist, they will try to get from there. Recommend MRI to rule out metastatic lesion to the brain. Gastrointestinal, deep venous thrombosis prophylaxis. Appreciated Dr. Phipps's input. Repeat labs. We will follow up. Mariana Fernandez MD
--- NOTE | 2017-11-28 06:54 | CP.PCM.PN ---
Subjective - Date & Time of Evaluation Date of Evaluation: 11/28/17 Time of Evaluation: 06:45 - Subjective Subjective: Pt seen and examined at bedside this morning. Pt awake and alert. Able to answer questions after a long delay. Follows simple commands. Pt denies n/v/c/d , chest pain, SOB. Objective - Vital Signs/Intake and Output Vital Signs (last 24 hours): Temp Pulse Resp BP Pulse Ox 97.9 F 107 H 21 120/83 99 11/28/17 00:01 11/28/17 02:00 11/28/17 00:01 11/28/17 00:01 11/28/17 00:01 Intake and Output: 11/27/17 11/28/17 18:59 06:59 Intake Total 820 120 Balance 820 120 - Medications Medications: Current Medications Acetaminophen (Tylenol 325mg Tab) 650 mg PO Q4H PRN PRN Reason: pain fever Apixaban (Eliquis) 5 mg PO BID [facility] PRN Reason: Protocol Last Admin: 11/27/17 17:51 Dose: 5 mg Famotidine (Pepcid) 40 mg PO HS [facility] Last Admin: 11/27/17 21:43 Dose: 40 mg Levetiracetam (Keppra 500mg Ivpb) 500 mg in 100 mls @ 400 mls/hr IV Q12 [facility] Last Admin: 11/27/17 21:42 Dose: 400 mls/hr Metoprolol Tartrate (Lopressor) 50 mg PO DAILY [facility] Last Admin: 11/27/17 09:53 Dose: 50 mg Ondansetron HCl (Zofran Inj) 4 mg IVP Q6 PRN PRN Reason: Nausea/Vomiting - Labs Labs: 11/27/17 06:30 11/27/17 06:30 PT 19.3 SECONDS (9.4-12.5) H 11/25/17 21:50 INR 1.68 (0.93-1.08) H 11/25/17 21:50 APTT 30.9 Seconds (25.1-36.5) 11/25/17 21:50 - Constitutional Appears: No Acute Distress, Chronically Ill - Head Exam Head Exam: ATRAUMATIC - Eye Exam Eye Exam: EOMI - ENT Exam ENT Exam: Normal Exam - Neck Exam Neck Exam: Normal Inspection - Respiratory Exam Respiratory Exam: Clear to Ausculation Bilateral, NORMAL BREATHING PATTERN - Cardiovascular Exam Cardiovascular Exam: Tachycardia, RRR, +S1, +S2 - GI/Abdominal Exam GI & Abdominal Exam: Soft, Normal Bowel Sounds Additional comments: PEG tube in place - Rectal Exam Rectal Exam: Deferred - Extremities Exam Extremities Exam: Normal Inspection Additional comments: no pedal edema, no pain to palpation - Neurological Exam Neurological Exam: Alert, Awake, CN II-XII Intact Additional comments: limited neuro exam do to long delay after given commands, moves all 4 extremities spontaneously Assessment and Plan - Assessment and Plan (Free Text) Assessment: 72 year old male, with past medical history of A-fib on Eliquis, hypertension, COPD, throat cancer s/p left radical neck dissection with radiation therapy, cirrhosis, dementia, TIA, and CVA (01/2017) with right sided hemiparesis, presents to the Emergency department for evaluation following a witnessed seizure. CT of the head showed No acute findings. There is a subacute cortical infarction identified August 03, 2017 are now encephalomalacia regions. Underlying atrophy identified. Per neurology, Dr Rivera, EEG showed slow waves, no sz activity, continue with Keppra and follow up out pt. Pt cannot undergo MRI because he has a pacemaker. Continue prophylaxis Keppra and continuing Beta yessenia and Eliquis, per primary. Dietitian consult. DC oral feedings, continue to use PEG tube because of increased risk of aspiration.
[2017-11-28] MEDS: levETIRAcetam 500mg IVPB 500 MG/100 ML BAG IV SCH (10:13)
--- NOTE | 2017-11-28 11:22 | CP.PCM.PCO ---
Physician Communication Note - Physician Communication Note Physician Communication Note: EEG showed slow waves, no sz activity. c/w ale f/u outpt.
--- NOTE | 2017-11-28 12:02 | EEG ---
DATE: 11/28/2017 CONDITION OF THE RECORDING: Drowsy. DIAGNOSIS: Seizure. MEDICATIONS: Reviewed by nurse's reconciliation sheet. INTERPRETATION: This is a 16-channel international recording. Background activity of this tracing was composed of 6-7 cycles per second. There was small amount of beta activity of 16-20 cycles per second seen in this recording. There was increased amount of theta activity of 5-7 cycles per second seen in this tracing. Drowsiness was characterized by mixed beta and theta activities. The sleep was characterized by vertex transient waves, sleep spindles and bilateral slowing. Photic stimulation showed no changes in the tracing. No paroxysmal activities noted in the recording. CONCLUSION: This is an abnormal electroencephalogram due to presence of diffuse slowing throughout the recording consistent with moderate bilateral cerebral dysfunction. No evidence of any epileptiform activity. Please clinically correlate. Sunil Rivera MD
[2017-11-28] MEDS ORDERED: Sodium Chloride 0.9% 1,000 ML IV SCH (15:00)
--- NOTE | 2017-11-29 10:27 | CP.PCM.PN ---
Subjective - Date & Time of Evaluation Date of Evaluation: 11/29/17 Time of Evaluation: 08:45 - Subjective Subjective: Praneeth Mata DO, PGY-1. Hematology Oncology Progress Note for Dr Phipps Pt seen and examined. Pt laying comfortably in bed. Pt is in no acute distress. Pt is able to answer questions and follow simple commands. Pt has a very long delay before being able to answer. Per nursing, pt did not experience any adverse events overnight. Pt denies n/v/c/d, chest pain or SOB. Objective - Vital Signs/Intake and Output Vital Signs (last 24 hours): Temp Pulse Resp BP Pulse Ox 97.5 F L 107 H 18 132/83 100 11/29/17 05:54 11/29/17 05:54 11/29/17 05:54 11/29/17 05:54 11/29/17 05:54 Intake and Output: 11/29/17 11/29/17 06:59 18:59 Intake Total 360 Balance 360 - Medications Medications: Current Medications Acetaminophen (Tylenol 325mg Tab) 650 mg PO Q4H PRN PRN Reason: pain fever Apixaban (Eliquis) 5 mg PO BID [facility] PRN Reason: Protocol Last Admin: 11/29/17 09:20 Dose: 5 mg Famotidine (Pepcid) 40 mg PO [facility] Last Admin: 11/28/17 21:17 Dose: 40 mg Levetiracetam (Keppra) 500 mg PO BID [facility] Last Admin: 11/29/17 09:20 Dose: 500 mg Metoprolol Tartrate (Lopressor) 50 mg PO DAILY [facility] Last Admin: 11/29/17 09:20 Dose: 50 mg Ondansetron HCl (Zofran Inj) 4 mg IVP Q6 PRN PRN Reason: Nausea/Vomiting - Labs Labs: 11/27/17 06:30 11/27/17 06:30 PT 19.3 SECONDS (9.4-12.5) H 11/25/17 21:50 INR 1.68 (0.93-1.08) H 11/25/17 21:50 APTT 30.9 Seconds (25.1-36.5) 11/25/17 21:50 - Constitutional Appears: No Acute Distress, Chronically Ill - Head Exam Head Exam: ATRAUMATIC, NORMAL INSPECTION, NORMOCEPHALIC - Eye Exam Eye Exam: EOMI, Normal appearance - ENT Exam ENT Exam: Mucous Membranes Moist, Normal Exam - Neck Exam Neck Exam: Full ROM, Normal Inspection - Respiratory Exam Respiratory Exam: Clear to Ausculation Bilateral, NORMAL BREATHING PATTERN - Cardiovascular Exam Cardiovascular Exam: REGULAR RHYTHM, RRR, +S1, +S2 - GI/Abdominal Exam GI & Abdominal Exam: Soft, Normal Bowel Sounds - Rectal Exam Rectal Exam: Deferred - Extremities Exam Extremities Exam: Normal Inspection - Neurological Exam Neurological Exam: Awake Assessment and Plan - Assessment and Plan (Free Text) Assessment: 72 year old male, with past medical history of A-fib on Eliquis, hypertension, COPD, throat cancer s/p left radical neck dissection with radiation therapy, cirrhosis, dementia, TIA, and 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 CT of the head at that time showed No acute findings. There is a subacute cortical infarction identified August 03, 2017 are now encephalomalacia regions. Underlying atrophy identified. Per neurology, Dr Rivera, EEG showed slow waves, no sz activity, continue with Keppra and follow up out pt. Pt has been switched from IV to PO Keppra. Discussed the possibility of metastases from head and neck cancer and the utility of MRI, although given that pt has a pacemaker, MRI is contraindicated. Continuing Beta yessenia and Eliquis, per primary. Continue to use PEG tube because of increased risk of aspiration. Dietary consult recommendations: Calorie Count for one day completed. Est intake, 955 calories/42 gms Protein. Meeting 50% of est Calorie needs, 63% of Protein needs. Suggested to consider Bolus feed of Jevity 1.2. 1 can per meal for 3 meals. Case reviewed and discussed with Dr. Oglesby. Praneeth Mata PGY-1
--- NOTE | 2017-11-29 10:38 | CP.PCM.PN ---
<Magy Davenport - Last Filed: 11/29/17 10:30> Subjective - Date & Time of Evaluation Date of Evaluation: 11/29/17 Time of Evaluation: 07:00 - Subjective Subjective: Medicine Progress Note for Dr. Wong (covering for Dr. Fernandez), Darío Davenport PGY3 Patient seen and examined at bedside. There were no acute overnight events as per nursing staff. Patient was resting comfortably in bed. He is A&O to person. He denies chest pain, shortness of breath, nausea/vomiting/diarrhea, fever/ chills, numbness/tingling, dysuria or hematuria. Objective - Vital Signs/Intake and Output Vital Signs (last 24 hours): Temp Pulse Resp BP Pulse Ox 97.5 F L 107 H 18 132/83 100 11/29/17 05:54 11/29/17 05:54 11/29/17 05:54 11/29/17 05:54 11/29/17 05:54 Intake and Output: 11/29/17 11/29/17 06:59 18:59 Intake Total 360 Balance 360 - Medications Medications: Current Medications Acetaminophen (Tylenol 325mg Tab) 650 mg PO Q4H PRN PRN Reason: pain fever Apixaban (Eliquis) 5 mg PO BID [facility] PRN Reason: Protocol Last Admin: 11/29/17 09:20 Dose: 5 mg Famotidine (Pepcid) 40 mg PO HS [facility] Last Admin: 11/28/17 21:17 Dose: 40 mg Levetiracetam (Keppra) 500 mg PO BID [facility] Last Admin: 11/29/17 09:20 Dose: 500 mg Metoprolol Tartrate (Lopressor) 50 mg PO DAILY [facility] Last Admin: 11/29/17 09:20 Dose: 50 mg Ondansetron HCl (Zofran Inj) 4 mg IVP Q6 PRN PRN Reason: Nausea/Vomiting - Labs Labs: 11/27/17 06:30 11/27/17 06:30 PT 19.3 SECONDS (9.4-12.5) H 11/25/17 21:50 INR 1.68 (0.93-1.08) H 11/25/17 21:50 APTT 30.9 Seconds (25.1-36.5) 11/25/17 21:50 - Constitutional Appears: No Acute Distress, Chronically Ill - Head Exam Head Exam: ATRAUMATIC, NORMAL INSPECTION, NORMOCEPHALIC - Eye Exam Eye Exam: Normal appearance, PERRL Pupil Exam: NORMAL ACCOMODATION, PERRL - ENT Exam ENT Exam: Mucous Membranes Moist - Respiratory Exam Respiratory Exam: Clear to Ausculation Bilateral, NORMAL BREATHING PATTERN. absent: Rales, Rhonchi, Wheezes - Cardiovascular Exam Cardiovascular Exam: REGULAR RHYTHM, +S1, +S2. absent: Gallop, Rubs, Murmur - GI/Abdominal Exam GI & Abdominal Exam: Soft, Normal Bowel Sounds. absent: Rigid, Tenderness, Mass , Rebound - Extremities Exam Extremities Exam: absent: Pedal Edema - Neurological Exam Neurological Exam: Awake, CN II-XII Intact - Skin Skin Exam: Dry, Warm Assessment and Plan - Assessment and Plan (Free Text) Assessment: This is a 72yo male with past medical history of anemia of chronic disease, a.fib (on Eliquis), HTN, dementia, liver cirrhosis, CVA w/ residual R hemiplegia , throat cancer who was admitted for 1. Syncope - can be secondary seizure from bilateral encephalomalacia seen on head CT - EEG showed no evidence of seizure 2. A.fib - rate controlled 3. HTN 4. Anemia of chronic dz - Hgb stable 5. CVA w/ residual R hemiplegia 6. Hx of throat cancer Plan: Neurology consulted and recommended Keppra for seizure prophylaxis. Patient is on Eliquis and Metoprolol. Hgb has been stable without over signs of bleeding. Patient is on Pepcid as well as Zofran prn. Oncology recommended PET scan as outpatient. Of note, patient was discharged yesterday. Patient was sent in from [facility] [place], but daughter wanted to bring patient home. Daughter has not been answering or returning phone calls. Case seen, discussed and reviewed with Dr. Wong. Darío Davenport PGY3 <Tylor Wong - Last Filed: 11/29/17 11:51> Objective - Vital Signs/Intake and Output Vital Signs (last 24 hours): Temp Pulse Resp BP Pulse Ox 97.5 F L 107 H 18 132/83 100 11/29/17 05:54 11/29/17 05:54 11/29/17 05:54 11/29/17 05:54 11/29/17 05:54 Intake and Output: 11/29/17 11/29/17 06:59 18:59 Intake Total 360 Balance 360 - Medications Medications: Current Medications Acetaminophen (Tylenol 325mg Tab) 650 mg PO Q4H PRN PRN Reason: pain fever Apixaban (Eliquis) 5 mg PO BID [facility] PRN Reason: Protocol Last Admin: 11/29/17 09:20 Dose: 5 mg Famotidine (Pepcid) 40 mg PO HS [facility] Last Admin: 11/28/17 21:17 Dose: 40 mg Levetiracetam (Keppra) 500 mg PO BID [facility] Last Admin: 11/29/17 09:20 Dose: 500 mg Metoprolol Tartrate (Lopressor) 50 mg PO DAILY [facility] Last Admin: 11/29/17 09:20 Dose: 50 mg Ondansetron HCl (Zofran Inj) 4 mg IVP Q6 PRN PRN Reason: Nausea/Vomiting - Labs Labs: 11/27/17 06:30 11/27/17 06:30 PT 19.3 SECONDS (9.4-12.5) H 11/25/17 21:50 INR 1.68 (0.93-1.08) H 11/25/17 21:50 APTT 30.9 Seconds (25.1-36.5) 11/25/17 21:50 Assessment and Plan - Assessment and Plan (Free Text) Plan: Pt seen and examined by me. The labs and medications have been reviewed. I reviewed the note of the spanish medical interpreter and I agree with it.D/C tele. Pt is waiting to go home and be picked up by daughter. Daughter did not want rehab/ NH.
--- NOTE | 2017-11-29 16:02 | PN ---
DATE: 11/28/2017 SUBJECTIVE: The patient is a 72-year-old male. The patient was seen and examined on the bedside on 11/28/2017, looks comfortable. Awake and alert. Answering most of the questions. Physical therapy is on the case for evaluation. No nausea, vomiting, or diarrhea. No hematuria. No hematochezia. Discussion done with Tori nurse practitioner and Dr. Mirian Barry. PHYSICAL EXAMINATION: VITAL SIGNS: Temperature 97.9, pulse 107, respiratory rate 21, blood pressure 120/86, pulse oximetry 99%. HEENT: Head: Normocephalic, atraumatic. Eyes: PERRLA. Extraocular muscles intact. Conjunctivae clear. Nose: Patent. Mucous membrane moist. NECK: Supple. No carotid bruit. No JVD or thyromegaly. CHEST: Bilaterally symmetrical. HEART: S1 and S2 positive. LUNGS: Clear to auscultation. ABDOMEN: Soft. Bowel sounds positive. No organomegaly. Has PEG tube, looks healthy. EXTREMITIES: No edema. No cyanosis. NEUROLOGIC: Patient is awake and alert. Answering simple questions. MEDICATIONS: Eliquis, Pepcid, Keppra, Lopressor, and Zofran. LABORATORY DATA: White blood cells 6.9, hemoglobin 12.7, hematocrit 38.8, and platelets 345. Sodium 136, potassium 4.2. BUN 23, creatinine 1.2. Glucose 84. ASSESSMENT AND PLAN: Mr. Geo Ewing is 72 years old male with anemia, history of atrial fibrillation on Eliquis, hypertension, chronic obstructive pulmonary disease, throat cancer, status post left radical neck dissection with radiation therapy, cirrhosis of the liver, dementia, transient ischemic attack, cerebrovascular accident, and history of dysphagia. Has a percutaneous endoscopic gastrostomy tube. Right-sided hemiparesis, has a new onset of witnessed seizure. The CAT scan of the head done showed no acute findings. Neurologist is on the case. EEG and CAT scan reviewed. According to Dr. Rivear, EEG showed slow wave, no seizure activity. Plan is continue with Keppra. The patient cannot undergo MRI because of his pacemaker. Continue prophylaxis, Keppra, beta-blockers, and Eliquis. Because of increased risk of aspiration, continue PEG tube as per Neurology physician. Discussion done with nurse mary Valle. The patient will go home on 11/28/2017, starting physical therapy, GI and DVT prophylaxes, repeat labs. We will follow up. Mariana Fernandez MD
[2017-11-30 06:41] VITALS: O2SAT 96
--- NOTE | 2017-11-30 07:44 | CP.PCM.PN ---
Subjective - Date & Time of Evaluation Date of Evaluation: 11/30/17 Time of Evaluation: 07:30 - Subjective Subjective: Praneeth Mata DO, PGY-1. Hematology Oncology Progress Note for Dr Phipps Pt seen and examined this morning at bedside. Pt sleeping comfortably upon arrival. He denies any n/v/c/d, chest pain or SOB. Pt has no new complaints at this time. Pt is able to answer questions but his answers are delayed and require a long pause. He has no new complaints at this time. Objective - Vital Signs/Intake and Output Vital Signs (last 24 hours): Temp Pulse Resp BP Pulse Ox 98.3 F 54 L 19 127/87 96 11/30/17 06:00 11/30/17 06:00 11/30/17 06:00 11/30/17 06:00 11/30/17 06:00 Intake and Output: 11/30/17 11/30/17 06:59 18:59 Intake Total 360 Balance 360 - Medications Medications: Current Medications Acetaminophen (Tylenol 325mg Tab) 650 mg PO Q4H PRN PRN Reason: pain fever Apixaban (Eliquis) 5 mg PO BID [facility] PRN Reason: Protocol Last Admin: 11/29/17 17:13 Dose: 5 mg Famotidine (Pepcid) 40 mg PO HS [facility] Last Admin: 11/29/17 22:36 Dose: 40 mg Levetiracetam (Keppra) 500 mg PO BID [facility] Last Admin: 11/29/17 17:13 Dose: 500 mg Metoprolol Tartrate (Lopressor) 50 mg PO DAILY [facility] Last Admin: 11/29/17 09:20 Dose: 50 mg Ondansetron HCl (Zofran Inj) 4 mg IVP Q6 PRN PRN Reason: Nausea/Vomiting - Labs Labs: 11/27/17 06:30 11/27/17 06:30 PT 19.3 SECONDS (9.4-12.5) H 11/25/17 21:50 INR 1.68 (0.93-1.08) H 11/25/17 21:50 APTT 30.9 Seconds (25.1-36.5) 11/25/17 21:50 - Constitutional Appears: No Acute Distress - Head Exam Head Exam: ATRAUMATIC, NORMAL INSPECTION, NORMOCEPHALIC - Eye Exam Eye Exam: EOMI Pupil Exam: NORMAL ACCOMODATION - Neck Exam Neck Exam: Full ROM - Respiratory Exam Respiratory Exam: Clear to Ausculation Bilateral, NORMAL BREATHING PATTERN - Cardiovascular Exam Cardiovascular Exam: REGULAR RHYTHM, RRR, +S1, +S2 - GI/Abdominal Exam GI & Abdominal Exam: Soft, Normal Bowel Sounds - Rectal Exam Rectal Exam: Deferred - Neurological Exam Neurological Exam: Alert, Awake - Psychiatric Exam Psychiatric exam: Normal Affect - Skin Skin Exam: Normal Color Assessment and Plan - Assessment and Plan (Free Text) Assessment: 72 year old male, with past medical history of A-fib on Eliquis, hypertension, COPD, throat cancer s/p left radical neck dissection with radiation therapy, cirrhosis, dementia, TIA, and 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 CT of the head at that time showed No acute findings. There is a subacute cortical infarction identified August 03, 2017 are now encephalomalacia regions. Underlying atrophy identified. Per neurology, Dr Rivera, EEG showed slow waves, no sz activity, continue with Keppra and follow up out pt. Pt has been switched from IV to PO Keppra. Discussed the possibility of metastases from head and neck cancer and the utility of MRI, although given that pt has a pacemaker, MRI is contraindicated. Continuing Beta yessenia and Eliquis, per primary. Continue PEG tube feedings because of increased risk of aspiration. 11/29/17 After a one day calorie count, dietary found that pt is only meeting 50% of est Calorie needs, 63% of Protein needs, and suggested to consider bolus feed of Jevity 1.2. 1 can per meal for 3 meals. Per nursing note, pt daughter was reached today, she is going to mushroom picker her father sometime today. Case reviewed and discussed with Dr. Oglesby, Dr Phipps. Praneeth Mata DO, PGY-1
[2017-11-30 09:36] VITALS: BP 142/88
--- NOTE | 2017-11-30 11:11 | CP.PCM.DIS ---
<IssacMagy - Last Filed: 11/30/17 11:05> Provider - Provider Date of Admission: 11/26/17 02:54 Attending physician: Mariana Fernandez MD Primary care physician: Mariana Fernandez MD Consults: Neuro: Dr. Rivera Heme/Onc: Dr. Phipps Time Spent in preparation of Discharge (in minutes): 35 Hospital Course - Lab Results Lab Results: Most Recent Lab Values WBC 6.9 10^3/ul (4.5-11.0) 11/27/17 06:30 RBC 4.82 10^6/uL (3.5-6.1) 11/27/17 06:30 Hgb 12.7 g/dL (14.0-18.0) L 11/27/17 06:30 Hct 38.8 % (42.0-52.0) L 11/27/17 06:30 MCV 80.5 fl (80.0-105.0) 11/27/17 06:30 MCH 26.3 pg (25.0-35.0) 11/27/17 06:30 MCHC 32.7 g/dl (31.0-37.0) 11/27/17 06:30 RDW 13.9 % (11.5-14.5) 11/27/17 06:30 Plt Count 345 10^3/uL (120.0-450.0) 11/27/17 06:30 MPV 9.0 fl (7.0-11.0) 11/27/17 06:30 PT 19.3 SECONDS (9.4-12.5) H 11/25/17 21:50 INR 1.68 (0.93-1.08) H 11/25/17 21:50 APTT 30.9 Seconds (25.1-36.5) 11/25/17 21:50 Sodium 136 mmol/L (132-148) 11/27/17 06:30 Potassium 4.2 mmol/L (3.6-5.0) 11/27/17 06:30 Chloride 98 mmol/L (98-107) 11/27/17 06:30 Carbon Dioxide 27 mmol/L (21-33) 11/27/17 06:30 Anion Gap 15 (10-20) 11/27/17 06:30 BUN 23 mg/dL (7-21) H 11/27/17 06:30 Creatinine 1.2 mg/dl (0.8-1.5) 11/27/17 06:30 Est GFR ( Amer) > 60 11/27/17 06:30 Est GFR (Non-Af Amer) 60 11/27/17 06:30 Random Glucose 84 mg/dL (70-110) 11/27/17 06:30 Hemoglobin A1c 5.4 % (4.2-6.5) 11/26/17 12:00 Calcium 9.4 mg/dL (8.4-10.5) 11/27/17 06:30 Iron 68 ug/dL (45-180) 11/26/17 12:00 TIBC 314 ug/dL (261-462) 11/26/17 12:00 % Saturation 22 % (20-55) 11/26/17 12:00 Total Bilirubin 0.6 mg/dL (0.2-1.3) 11/25/17 21:50 AST 50 U/L (17-59) 11/25/17 21:50 ALT 45 U/L (7-56) 11/25/17 21:50 Alkaline Phosphatase 71 U/L (38-126) 11/25/17 21:50 Lactate Dehydrogenase 603 U/L (333-699) 11/25/17 21:50 Total Creatine Kinase 224 U/L (35-230) 11/25/17 21:50 Troponin I 0.01 ng/mL D 11/25/17 21:50 Total Protein 7.8 g/dL (5.8-8.3) 11/25/17 21:50 Albumin 3.7 g/dL (3.0-4.8) 11/25/17 21:50 Globulin 4.1 gm/dL 11/25/17 21:50 Albumin/Globulin Ratio 0.9 (1.1-1.8) L 11/25/17 21:50 Triglycerides 65 mg/dL (35-160) 11/26/17 12:00 Cholesterol 135 mg/dL (130-200) 11/26/17 12:00 LDL Cholesterol Direct 64 mg/dL (0-129) 11/26/17 12:00 HDL Cholesterol 47 mg/dL (29-60) 11/26/17 12:00 Carcinoembryonic Ag 2.0 ng/mL (0.0-3.0) 11/27/17 06:30 Vitamin B12 647 pg/mL (239-931) 11/26/17 12:00 Folate > 20.0 ng/mL 11/26/17 12:00 TSH 3rd Generation 3.10 mIU/mL (0.46-4.68) 11/27/17 06:30 - Hospital Course Hospital Course: This is a 72yo male with past medical history of anemia of chronic disease, a.fib (on Eliquis), pacer, HTN, dementia, liver cirrhosis, CVA w/ residual R hemiplegia, throat cancer who was admitted for syncope. Neurology was consulted and patient was found to have bilateral encephalomalacia on head CT. EEG was done which does not show evidence of seizure. Patient unable to get MRI due to history of pacemaker. He will continue Keppra for seizure prophylaxis and follow up with neurology as outpatient. Home medications were continued. Hgb has been stable without over signs of bleeding. Patient is tolerating diet and plan for peg tube removal as outpatient. Oncology recommended PET scan as outpatient. Patient will be d/c home with daughter who wants to be optometric technologist for her father. Patient will also follow up with PMD, Dr. Fernandez as outpatient upon discharge. - Date & Time of H&P Date of H&P: 11/26/17 Time of H&P: 09:00 Discharge Exam - Head Exam Head Exam: ATRAUMATIC, NORMAL INSPECTION, NORMOCEPHALIC - Eye Exam Eye Exam: Normal appearance, PERRL Pupil Exam: NORMAL ACCOMODATION - ENT Exam ENT Exam: Mucous Membranes Moist - Respiratory Exam Respiratory Exam: Clear to PA & Lateral, NORMAL BREATHING PATTERN, UNREMARKABLE. absent: Rales, Wheezes, Respiratory Distress - Cardiovascular Exam Cardiovascular Exam: REGULAR RHYTHM, +S1, +S2. absent: Gallop, Rubs, Systolic Murmur - GI/Abdominal Exam GI & Abdominal Exam: Normal Bowel Sounds, Soft, Unremarkable. absent: Rigid, Tenderness Additional comments: peg in place- clean and dry - Extremities Exam Extremities exam: normal inspection - Neurological Exam Neurological exam: Alert - Skin Skin Exam: Dry, Warm Discharge Plan - Follow Up Plan Condition: STABLE Disposition: HOME/ ROUTINE Instructions: Preventing Falls in the Older Adult, Syncope (Fainting) (DC), Preventing Falls, Seizures, Dysphagia (DC), Syncope (DC), Syncope (GEN) Additional Instructions: Discharge instructions: Please follow up with primary physician Dr. Fernandez within one week. Please discharge patient with "elastic binder" and utilize daily. Please also schedule procedure to removed PEG tube - as outpatient. Schedule follow up appointments with Dr. Phipps and neurologist within 1-2 weeks. Due to high risks of aspirations; discontinue PEG feedings. Home physical therapy was ordered and needs to continue to strengthen. Diet: Advance bite size - level 3 with [place] Thicken liquids;. Ensure pudding 3x/day. NO STRAWS! NO SPOON! Only cups. Referrals: Mariana Fernandez MD [Primary Care Provider] - <Tylor Wong S - Last Filed: 11/30/17 18:58> Provider - Provider Date of Admission: 11/27/17 23:38 Attending physician: Mariana Fernandez MD Primary care physician: Mariana Fernandez MD Hospital Course - Lab Results Lab Results: Most Recent Lab Values WBC 6.9 10^3/ul (4.5-11.0) 11/27/17 06:30 RBC 4.82 10^6/uL (3.5-6.1) 11/27/17 06:30 Hgb 12.7 g/dL (14.0-18.0) L 11/27/17 06:30 Hct 38.8 % (42.0-52.0) L 11/27/17 06:30 MCV 80.5 fl (80.0-105.0) 11/27/17 06:30 MCH 26.3 pg (25.0-35.0) 11/27/17 06:30 MCHC 32.7 g/dl (31.0-37.0) 11/27/17 06:30 RDW 13.9 % (11.5-14.5) 11/27/17 06:30 Plt Count 345 10^3/uL (120.0-450.0) 11/27/17 06:30 MPV 9.0 fl (7.0-11.0) 11/27/17 06:30 PT 19.3 SECONDS (9.4-12.5) H 11/25/17 21:50 INR 1.68 (0.93-1.08) H 11/25/17 21:50 APTT 30.9 Seconds (25.1-36.5) 11/25/17 21:50 Sodium 136 mmol/L (132-148) 11/27/17 06:30 Potassium 4.2 mmol/L (3.6-5.0) 11/27/17 06:30 Chloride 98 mmol/L (98-107) 11/27/17 06:30 Carbon Dioxide 27 mmol/L (21-33) 11/27/17 06:30 Anion Gap 15 (10-20) 11/27/17 06:30 BUN 23 mg/dL (7-21) H 11/27/17 06:30 Creatinine 1.2 mg/dl (0.8-1.5) 11/27/17 06:30 Est GFR ( Amer) > 60 11/27/17 06:30 Est GFR (Non-Af Amer) 60 11/27/17 06:30 Random Glucose 84 mg/dL (70-110) 11/27/17 06:30 Hemoglobin A1c 5.4 % (4.2-6.5) 11/26/17 12:00 Calcium 9.4 mg/dL (8.4-10.5) 11/27/17 06:30 Iron 68 ug/dL (45-180) 11/26/17 12:00 TIBC 314 ug/dL (261-462) 11/26/17 12:00 % Saturation 22 % (20-55) 11/26/17 12:00 Total Bilirubin 0.6 mg/dL (0.2-1.3) 11/25/17 21:50 AST 50 U/L (17-59) 11/25/17 21:50 ALT 45 U/L (7-56) 11/25/17 21:50 Alkaline Phosphatase 71 U/L (38-126) 11/25/17 21:50 Lactate Dehydrogenase 603 U/L (333-699) 11/25/17 21:50 Total Creatine Kinase 224 U/L (35-230) 11/25/17 21:50 Troponin I 0.01 ng/mL D 11/25/17 21:50 Total Protein 7.8 g/dL (5.8-8.3) 11/25/17 21:50 Albumin 3.7 g/dL (3.0-4.8) 11/25/17 21:50 Globulin 4.1 gm/dL 11/25/17 21:50 Albumin/Globulin Ratio 0.9 (1.1-1.8) L 11/25/17 21:50 Triglycerides 65 mg/dL (35-160) 11/26/17 12:00 Cholesterol 135 mg/dL (130-200) 11/26/17 12:00 LDL Cholesterol Direct 64 mg/dL (0-129) 11/26/17 12:00 HDL Cholesterol 47 mg/dL (29-60) 11/26/17 12:00 Carcinoembryonic Ag 2.0 ng/mL (0.0-3.0) 11/27/17 06:30 Vitamin B12 647 pg/mL (239-931) 11/26/17 12:00 Folate > 20.0 ng/mL 11/26/17 12:00 TSH 3rd Generation 3.10 mIU/mL (0.46-4.68) 11/27/17 06:30 - Hospital Course Hospital Course: Pt seen and examined. I have reviewed the note of the medical pathologist and agree with it. I have discussed the assessment and plan with the resident. I have reviewed the patient's labs and medications. Pt will go home today. 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
[2017-11-30 13:22] VITALS: PULSE 104; RESP 20; TEMP 97.7
== END 2017-11-30 16:01 | disposition home or self-care (01) | DRG 71 ==
LOC: ED 21:11 → ERH 11-26 02:54 → 2RSO 11-26 04:58 → OBSVTOIN 11-27 23:38
PROVIDERS: ADMIT Internal Medicine; ATTEND Internal Medicine
DX: G93.89 Other specified disorders of brain (principal); I69.351 Hemiplegia and hemiparesis following cerebral infarction affecting right dominant side; R56.9 Unspecified convulsions; I42.9 Cardiomyopathy, unspecified; K74.60 Unspecified cirrhosis of liver; I48.91 Unspecified atrial fibrillation; D63.8 Anemia in other chronic diseases classified elsewhere; I10 Essential (primary) hypertension; J44.9 Chronic obstructive pulmonary disease, unspecified; F01.50 Vascular dementia, unspecified severity, without behavioral disturbance, psychotic disturbance, mood disturbance, and anxiety; I65.22 Occlusion and stenosis of left carotid artery; Z79.01 Long term (current) use of anticoagulants; Z85.819 Personal history of malignant neoplasm of unspecified site of lip, oral cavity, and pharynx; Z93.1 Gastrostomy status; Z92.3 Personal history of irradiation; Z95.0 Presence of cardiac pacemaker; Z87.891 Personal history of nicotine dependence

== ENCOUNTER 2017-12-04 10:56 | Inpatient (IN) | payer MEDICARE, OTHER ==
[2017-12-04 10:57] VITALS: PULSE 75
--- NOTE | 2017-12-04 11:19 | ED PDOC ---
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 Patient denies any other complaints and requests medical evaluation. HPI and ROS limited due to dementia and poor response. Time/Duration: Prior to Arrival Symptom Onset: Sudden Symptom Course: Unchanged Quality: Aching Activities at Onset: Light Context: Home Past Medical History - Provider Review Nursing Documentation Reviewed: Yes - Infectious Disease Hx of Infectious Diseases: None - Cardiac Hx Cardiac Disorders: Yes Hx Hypertension: Yes - Pulmonary Hx Chronic Obstructive Pulmonary Disease (COPD): Yes - Neurological HX Cerebrovascular Accident: Yes (R sided weakness) - HEENT Hx HEENT Disorder: No - Renal Hx Renal Disorder: No - Endocrine/Metabolic Hx Endocrine Disorders: No - Hematological/Oncological Hx Cancer: Yes (throat) - Integumentary Hx Dermatological Disorder: Yes Other/Comment: multiple ble skin discolorations, laceration above left eyelid - Musculoskeletal/Rheumatological Hx Falls: No - Gastrointestinal Hx Gastrointestinal Disorders: Yes (L INGUINAL HERNIA) Hx Liver Failure: Yes (cirrhosis) - Psychiatric Hx Psychophysiologic Disorder: Yes Hx Depression: Yes Hx Substance Use: No - Surgical History Hx Inguinal Hernia Repair: Yes (right) - Anesthesia Hx Anesthesia Reactions: No Hx Malignant Hyperthermia: No - Suicidal Assessment Feels Threatened In Home Enviroment: No Family/Social History - Physician Review Nursing Documentation Reviewed: Yes Family/Social History: No Known Family HX Smoking Status: Unknown If Ever Smoked Hx Alcohol Use: No Hx Substance Use: No Allergies/Home Meds Allergies/Adverse Reactions: Allergies No Known Allergies Allergy (Verified 12/04/17 11:06) Home Medications: Home Meds Medication Instructions Recorded Confirmed levETIRAcetam [Keppra] 500 mg PO Q12 11/28/17 12/04/17 Review of Systems - Review of Systems Systems not reviewed;Unavailable: Other (Dementia) Musculoskeletal: Other (left wrist pain) Physical Exam - Physical Exam Narrative Physical Exam (Text): 12/04/17 11:20 Gen: VS reviewed, alert, well developed, cachectic, nontoxic, mild distress ENT: dry mucus membrane, normal pharynx Eye: EOMI, PERRL Neck: no JVD, supple, no adenopathy CV: regular rate, regular rhythm, no rubs,no murmur, no gallops, S1, S2, pulses equal and strong Pulm: no distress, clear to auscultation, no wheeze, no rhonchi, breath sounds equal, no rales Abd: Binder in place, feeding tube in place, dry and intact Ext: no edema, swelling and bruising noted on left wrist Skin: good color, no rash, no cyanosis Psych: limited secondary to dementia Neuro: limited secondary to dementia Vital Signs Reviewed: Yes Vital Signs Temp Pulse Resp BP Pulse Ox 12/04/17 12:57 107 H 21 155/99 H 100 12/04/17 10:57 97.8 F 108 H 18 121/82 100 Temperature: Afebrile Blood Pressure: Normal Pulse: Tachycardic Respiratory Rate: Normal Appearance: Positive for: Cachectic Pain Distress: Mild Mental Status: Positive for: other (limited secondary to dementia) Medical Decision Making ED Course and Treatment: 12/04/17 11:28 Impression: 72 year old male presents to the Emergency department for left wrist pain. Plan: --CT cervical spine --CT head --EKG --labs --Chest X-ray --Urine Culture --X-ray of left forearm --X-ray of pelvis --X-ray of left wrist --Urinalysis -- Reassess and disposition Prior Visits: Notes and results from previous visits were reviewed. Progress Notes: 12/04/17 11:32 12/04/17 11:49 patient seen for weakness and suspected fall, patient is an unreliable historian second to dementia. patient found to have swelling of the left wrist and clearly withdraws arms when palpated. will workup for trauma. Patient does admit to a fall but cannot elaborate on circumstance. 12/04/17 13:33 discussed with daughter, Eladia, number file, states that the patient did not fall at home. she states that the patient was walking with a walker after CVA, subsequently had a seizure and was admitted to the hospital for 5 days, discharged home this past but has not eaten or drank anything since getting home. She also states that she does not have a food to give through feeding tube. She states physical therapy was at home today but could not provide service second to pain(site unknown). 12/04/17 13:[address] ortega, patient to be admitted for dehydration, failure to thrive, left wrist pain but no overt fracture on xray. ivf held in the ED due to extensive cardiac hx including CHF. - Lab Interpretations Lab Results: 12/04/17 11:30 12/04/17 11:30 Lab Results 12/04/17 13:46: Uric Acid 5.6 12/04/17 11:30: Urine Color Yellow, Urine Appearance Clear, Urine pH 6.0, Ur Specific [place] 1.025, Urine Protein Trace H, Urine Glucose (UA) Negative, Urine Ketones Trace H, Urine Blood Negative, Urine Nitrate Negative, Urine Bilirubin Negative, Urine Urobilinogen 0.2, Ur Leukocyte Esterase Negative, Urine RBC 0 - 2, Urine WBC 0 - 2, Ur Epithelial Cells 0 - 2, Amorphous Sediment Few, Urine Bacteria Mod 12/04/17 11:30: WBC 7.8, RBC 4.93, Hgb 13.2 L, Hct 39.9 L, MCV 80.9, MCH 26.8, MCHC 33.1, RDW 14.1, Plt Count 312, MPV 8.8, Gran % 76.8 H, Lymph % (Auto) 15.2 L, [place] % (Auto) 7.3 H, Eos % (Auto) 0.6 L, Baso % (Auto) 0.1, Gran # 6.01, Lymph # (Auto) 1.2, [place] # (Auto) 0.6, Eos # (Auto) 0.1, Baso # (Auto) 0.01 12/04/17 11:30: Sodium 142, Potassium 4.3, Chloride 104, Carbon Dioxide 26, Anion Gap 16, BUN 19, Creatinine 1.1, Est GFR ( Amer) > 60, Est GFR (Non- Af Amer) > 60, Random Glucose 103, Calcium 9.7, Phosphorus 3.9, Magnesium 1.5 L , Total Bilirubin 0.7, AST 74 H D, ALT 43, Alkaline Phosphatase 69, Total Protein 8.4 H, Albumin 3.9, Globulin 4.5, Albumin/Globulin Ratio 0.9 L - RAD Interpretation Narrative RAD Interpretations (Text): 12/04/17 13:20 CT of head reviewed by radiologist, shows: No acute parenchymal, subarachnoid nor extra-axial hemorrhage. Re- demonstrated are extensive cystic encephalomalacia changes right frontal lobe, to a slightly lesser degree right parietal, anterior superior temporal lobes and anterolateral basal ganglia. Lesser cystic encephalomalacia changes noted in the left frontal lobe and anterolateral basal ganglia. . Note that the possibility of a small hyperacute infarct cannot be excluded based on this exam Significant atrophy. CT of cervical spine reviewed by radiologist, shows: No acute fractures. Multilevel degenerative spondylosis. These changes most notably affect the exit foramina at nearly every level. X-ray of left wrist reviewed by radiologist, shows: Limited study demonstrating no definitive evidence of acute displaced fracture nor dislocation. calcification changes of the triangular fibrocartilage. There appear to be mild degenerative changes at the radiocarpal articulation Degenerative osteoarthritis seen at the 1st metacarpal/ greater multangular articulation. X-ray of left forearm reviewed by radiologist, shows: No definitive evidence of acute displaced fracture nor dislocation. If symptoms persist or occult fracture suspected clinically recommend followup on radiographs in 7-10 days as most fractures should become radiographically evident in this timeframe. . X-ray of pelvis reviewed by radiologist, shows: No definitive radiographic evidence of acute displaced fracture of the right and left hips or pelvis. Chest x-ray reviewed by radiologist, shows: No acute consolidation. Radiology Orders: 12/04/17 11:17 CHEST ONE VIEW [RAD] Stat 12/04/17 11:18 PELVIS ONE VIEW [RAD] Stat 12/04/17 11:19 FOREARM LEFT [RAD] Stat WRIST, LEFT 3 VIEWS [RAD] Stat 12/04/17 11:20 CERVICAL SPINE W/O CONTRAST [CT] Stat HEAD W/O CONTRAST [CT] Stat - EKG Interpretation EKG Interpretation (Text): 12/04/17 11:17 Sinus tach @ 109 bpm, nml qrs, nml axis, nonspecific lateral t wave abnormality. Interpreted by ED Physician: Yes Type: 12 lead EKG - Scribe Statement The provider has reviewed the documentation as recorded by the Scribe Taye Dominguez, training under [facility]. All medical record entries made by the Scribe were at my direction and personally dictated by me. I have reviewed the chart and agree that the record accurately reflects my personal performance of the history, physical exam, medical decision making, and the department course for this patient. I have also personally directed, reviewed, and agree with the discharge instructions and disposition. Disposition/Present on Arrival - Present on Arrival Any Indicators Present on Arrival: No History of DVT/PE: No History of Uncontrolled Diabetes: No Urinary Catheter: No History of Decub. Ulcer: Yes History Surgical Site Infection Following: None - Disposition Have Diagnosis and Disposition been Completed?: Yes Diagnosis: Failure to thrive Disposition Time: 14:11 Condition: GOOD Forms: [facility] (Kiswahili)
[2017-12-04 12:12] LABS: BASO # 0.01 K/mm3 (0.0-2.0); BASO % 0.1 % (0.0-3.0); EOS # 0.1 (0.0-0.7); EOS % 0.6 % (1.5-5.0); GRAN # 6.01 (1.4-6.5); GRAN % 76.8 % (50.0-68.0); HEMOGLOBIN 13.2 g/dL (14.0-18.0); LYMPH # 1.2 (1.2-3.4); LYMPH % 15.2 % (22.0-35.0); MEAN CELL VOLUME 80.9 fl (80.0-105.0); MEAN CORPUSCULAR HEMOGLOBIN 26.8 pg (25.0-35.0); MEAN CORPUSCULAR HGB CONC 33.1 g/dl (31.0-37.0); MEAN PLATELET VOLUME 8.8 fl (7.0-11.0); MONO # 0.6 (0.1-0.6); MONO % 7.3 % (1.0-6.0); RBC 4.93 10^6/uL (3.5-6.1); RED CELL DISTRIBUTION WIDTH 14.1 % (11.5-14.5); URINE BILIRUBIN NEGATIVE (NEGATIVE); URINE BLOOD NEGATIVE (NEGATIVE); URINE GLUCOSE (UA) NEGATIVE (NEGATIVE); URINE LEUKOCYTE ESTERASE NEGATIVE Leu/uL (NEGATIVE); URINE PROTEIN TRACE mg/dL (<30 mg/dL); URINE UROBILINOGEN 0.2 E.U./dL (<1 E.U./dL); WHITE BLOOD COUNT 7.8 10^3/ul (4.5-11.0)
[2017-12-04 12:16] LABS: ALB/GLOB RATIO 0.9 (1.1-1.8); ALBUMIN 3.9 g/dL (3.0-4.8); ALT/SGPT 43 U/L (7-56); AST/SGOT 74 U/L (17-59); BLOOD UREA NITROGEN 19 mg/dL (7-21); CALCIUM 9.7 mg/dL (8.4-10.5); GFR AFRICAN-AMERICAN > 60; GFR NON-AFRICAN AMERICAN > 60; URINE APPEARANCE CLEAR (CLEAR); URINE COLOR YELLOW (YELLOW)
[2017-12-04 12:34] LABS: URINE AMORPHOUS SEDIMENT FEW; URINE BACTERIA MOD (NEG); URINE EPITHELIAL CELLS 0 - 2 /hpf (0-5); URINE RBC 0 - 2 /hpf (0-2); URINE WBC 0 - 2 /hpf (0-6)
--- NOTE | 2017-12-04 12:37 | CT ---
PROCEDURE: CT HEAD WITHOUT CONTRAST. HISTORY: Trauma COMPARISON: Comparison made with CT scan brain 11/25/2017 TECHNIQUE: Axial computed tomography images were obtained through the head/brain without intravenous contrast. Radiation dose: Total exam DLP = 799.25 mGy-cm. This CT exam was performed using one or more of the following dose reduction techniques: Automated exposure control, adjustment of the mA and/or kV according to patient size, and/or use of iterative reconstruction technique. FINDINGS: HEMORRHAGE: No acute parenchymal, subarachnoid nor extra-axial hemorrhage. BRAIN: Re- demonstrated are extensive cystic encephalomalacia changes right frontal lobe, to a slightly lesser degree right parietal, anterior superior temporal lobes and anterolateral basal ganglia. Lesser cystic encephalomalacia changes noted in the left frontal lobe and anterolateral basal ganglia. .Small chronic left pontine infarct. Note that the possibility of a small hyperacute infarct cannot be excluded based on this exam . Significant atrophy. Vascular calcifications both carotid siphons. VENTRICLES: There is ex vacuo dilatation of the ventricles due to the aforementioned cystic encephalomalacia as well mild central volume loss. CALVARIUM: No acute calvarial fractures. PARANASAL SINUSES: Unremarkable as visualized. No significant inflammatory changes. MASTOID AIR CELLS: Unremarkable as visualized. No inflammatory changes. OTHER FINDINGS: None. IMPRESSION: No acute parenchymal, subarachnoid nor extra-axial hemorrhage. Re- demonstrated are extensive cystic encephalomalacia changes right frontal lobe, to a slightly lesser degree right parietal, anterior superior temporal lobes and anterolateral basal ganglia. Lesser cystic encephalomalacia changes noted in the left frontal lobe and anterolateral basal ganglia. . Note that the possibility of a small hyperacute infarct cannot be excluded based on this exam Significant atrophy.
--- NOTE | 2017-12-04 12:44 | RAD ---
PROCEDURE: Radiographs of the pelvis. HISTORY: fall COMPARISON: Comparison made with the pelvis right hip radiographs and CT scan pelvis right hip dated 07/08/2015 and 06/02/2015 respectively. The the FINDINGS: BONES: Pelvic Bones: Unremarkable. Hips: Grossly unremarkable. JOINTS: Hip joints: Mild degenerative osteoarthritis both hip joints Sacroiliac Joints: Unremarkable. Pubic Symphysis: Unremarkable. OTHER FINDINGS: Mild vascular calcifications IMPRESSION: No definitive radiographic evidence of acute displaced fracture of the right and left hips or pelvis.
--- NOTE | 2017-12-04 12:56 | RAD ---
PROCEDURE: Left forearm dated 12/04/2017. Two cross-table lateral views of the left forearm obtained. HISTORY: Injury. COMPARISON: Correlation made with concurrent radiographs of the left wrist. Note that the study is somewhat limited due to poor patient positioning on the lateral projection TECHNIQUE: Frontal and lateral views obtained. FINDINGS: BONES: No definitive radiographic evidence of acute displaced fracture nor dislocation. JOINT SPACES: There are calcification changes of the triangular fibrocartilage. There appear to be mild degenerative changes at the radiocarpal articulation Degenerative osteoarthritis seen at the 1st metacarpal/ greater multangular articulation. . There is a tiny enthesophyte arising from the posterior margin of the olecranon OTHER FINDINGS: Vascular calcifications are present. IMPRESSION: No definitive evidence of acute displaced fracture nor dislocation. If symptoms persist or occult fracture suspected clinically recommend followup on radiographs in 7-10 days as most fractures should become radiographically evident in this timeframe. .
--- NOTE | 2017-12-04 12:57 | RAD ---
PROCEDURE: Left Wrist Radiographs. Three cross table lateral views of the left wrist performed HISTORY: trauma COMPARISON: Correlation made with concurrent radiographs of the left forearm. FINDINGS: BONES: No evidence acute displaced fracture nor dislocation. Osseous structures appear intact so far as can be seen. JOINTS: There are calcification changes of the triangular fibrocartilage. There appear to be mild degenerative changes at the radiocarpal articulation Degenerative osteoarthritis seen at the 1st metacarpal/ greater multangular articulation. . SOFT TISSUES: Vascular calcifications are noted OTHER FINDINGS: None. IMPRESSION: Limited study demonstrating no definitive evidence of acute displaced fracture nor dislocation. calcification changes of the triangular fibrocartilage. There appear to be mild degenerative changes at the radiocarpal articulation Degenerative osteoarthritis seen at the 1st metacarpal/ greater multangular articulation. .
--- NOTE | 2017-12-04 12:59 | RAD ---
PROCEDURE: CHEST RADIOGRAPH, 1 VIEW. The study is slightly limited due to patient rotation to the left side. HISTORY: Status post fall COMPARISON: None available. FINDINGS: LUNGS: Clear. PLEURA: No pneumothorax or pleural fluid seen. Minor biapical pleural thickening CARDIOVASCULAR: Heart is upper limits normal/ borderline enlarged. No change single lead pacemaker/defibrillator OSSEOUS STRUCTURES: Osseous structures appear intact so far as can be seen VISUALIZED UPPER ABDOMEN: Normal. OTHER FINDINGS: None. IMPRESSION: No acute consolidation.
--- NOTE | 2017-12-04 13:22 | CT ---
PROCEDURE: CT scan cervical spine 12/04/2017 HISTORY: Injury COMPARISON: None available. TECHNIQUE: Contiguous helical/transaxial computed tomography images were obtained of the cervical spine without the use of intravenous contrast. Coronal and sagittal reformatted images were created and reviewed. Radiation dose: Total exam DLP = 321.37 mGy-cm. This CT exam was performed using one or more of the following dose reduction techniques: Automated exposure control, adjustment of the mA and/or kV according to patient size, and/or use of iterative reconstruction technique. FINDINGS: VERTEBRAE: No evidence of acute compression nor displaced fracture nor retropulsed fragments. Minor chronic appearing anterior stature loss of the C6 segment and to a lesser degree C5 segments felt to be degenerative in origin. Remaining vertebral bodies otherwise exhibit relatively normal stature. Minimal posterior subluxation C5 over C6. The remaining vertebral bodies otherwise exhibit normal alignment. Facets normally aligned. DISCS/SPINAL CANAL/NEURAL FORAMINA: Multilevel degenerative spondylosis is present. At the C5-C6 level, there is disc space narrowing degenerative endplate/chronic Schmorl's nodes changes on end what appears represent a peripherally calcified central and bilateral focal disc herniation which indents the ventral surface of the thecal sac and also appears to indent the ventral surface cord. The overall central canal appears marginal to adequate at this level. Uncovertebral and facet arthropathy present. Exit foramina are narrowed bilaterally right greater than left. At the C6-C7 level, there is relatively adequate disc height. Small posteriorly a calcified focal disc bulge indents the ventral surface of the thecal sac. Due to crossing streak and beam hardening artifact the central canal is somewhat obscured however the bony canal appears adequate so far as can be determined. Exit foramina appear mildly narrowed due to overgrown uncovertebral joints. At the C4-C5 level, there is minimal intradiscal calcification and minor posterior disc space narrowing. . Small broad-based bulge of the posterior annulus with associated tiny posterior calcification flattens the ventral surface of the thecal sac reaching but not significantly compressing the cord so far as can be seen. Seven canal appears adequate. Uncovertebral facets are hypertrophic the latter more so than former with bilateral foraminal stenosis. At the C3-C4 level, small amount of intradiscal calcifications present. There is some minor flattening of the ventral surface of the thecal sac with no obvious significant cord compression. Central canal is marginal to adequate. The facet joints are quite hypertrophic on the right and mildly hypertrophic on the left. The uncovertebral joints also hypertrophic. Exit foramina stenotic bilaterally right greater than left. At the C2-C3 level, there is also mild disc space narrowing with small broad-based disc bulge that also flattens the ventral surface of the thecal sac. The central canal appears quite capacious facet joints are hypertrophic. The uncovertebral joints also mildly overgrown. Exit foramina stenotic bilaterally. PARASPINAL SOFT TISSUES: Unremarkable. OTHER FINDINGS: Vascular calcifications both the distal common carotid artery is/carotid bifurcations and proximal internal carotid artery's more so on the right. Mild biapical pleural thickening right greater than left. Some curvilinear calcification changes within the left apical pleural thickening likely due to chronic inflammation IMPRESSION: No acute fractures. Multilevel degenerative spondylosis. These changes most notably affect the exit foramina at nearly every level.
--- NOTE | 2017-12-04 15:42 | CARD ---
APPROVED REPORT EKG Measurement Heart [id number] <Conclusion> Sinus tachycardia with short GA ST & T wave abnormality, consider lateral ischemia Abnormal ECG
[2017-12-04] MEDS: Sodium Chloride 0.9% 1,000 ML IV SCH (17:31)
[2017-12-04] MEDS ORDERED: Pneumococcal 23-Valent Vaccine IM ONE (18:17)
[2017-12-04 18:18] VITALS: BMI 20.1
--- NOTE | 2017-12-05 05:35 | HP ---
Patient was seen and examined at the bedside on 12/04/2017. CHIEF COMPLAINTS: Weakness, neurological deficit. HISTORY OF PRESENT ILLNESS: Mr. Geo Ewing, 72-year-old male, well known to me from previous admission and rehab with past medical history of atrial fibrillation, on Eliquis; hypertension; COPD; throat cancer; cirrhosis of the liver; dementia; TIA; CVA with right-sided hemiparesis. Came to the Emergency Department via EMS complaining of left wrist discomfort status post fall at home prior to arrival. Patient denies any other complaints , Patient has history of PEG tube. As per family, the patient has poor appetite. We admitted the patient, did x-ray of the wrist. PAST MEDICAL HISTORY: As above, hypertension, COPD, right-sided weakness, throat cancer, multiple skin discoloration, laceration above the left eyelid, cirrhosis of the liver, depression, inguinal hernia repair. ALLERGIES: THE PATIENT IS NOT ALLERGIC WITH ANY MEDICATION. HOME MEDICATIONS: Keppra. REVIEW OF SYSTEMS: Patient was seen and examined on the bedside, looking comfortable, having left wrist pain. No fever. No chills. No hematuria. No hematochezia. No headache, no dizziness. Patient is a poor historian. PHYSICAL EXAMINATION: VITAL SIGNS: Temperature 97.8, pulse 108, respiratory rate 18, blood pressure 120/82, pulse oximetry 100. HEENT: Head: Normocephalic, atraumatic. Eyes: PERRLA. Extraocular muscles intact. Conjunctivae clear. Nose: Patent. Mucous membrane moist. NECK: Supple. No carotid bruit. No JVD or thyromegaly. CHEST: Bilaterally symmetrical. HEART: S1 and S2 positive. LUNGS: Clear to auscultation. ABDOMEN: Soft. Bowel sounds positive. No organomegaly. EXTREMITIES: Lower extremities, no edema, no cyanosis. NEUROLOGICAL: Patient is awake, alert. Follows simple commands. LABORATORY DATA: White blood cells 7.8, hemoglobin 13.2, hematocrit 39.9, platelet 312. Sodium 142, potassium 4.3, BUN 19, creatinine 1.1, glucose 103. ASSESSMENT AND PLAN: Mr. Geo Ewing, a 72-year-old male with anemia. CT of the head done, reviewed by me. CT of cervical spine done, has multilevel degenerative spondylosis. X-ray of the left wrist, no definitive evidence of acute displaced fracture or dislocation. X-ray of the left forearm done. No definite evidence of acute displaced fracture. X-ray of the pelvis was done. No definitive radiographic evidence of acute displaced fracture of the right and left hip and pelvis. History of fall, failure to thrive, dehydration. We admitted the patient. Restarted home medications. History of atrial fibrillation, he is on Eliquis; hypertension; chronic obstructive pulmonary disease; throat cancer; is heigh risk for aspiration pneumonia , so should at 45 degree , so nick hspital bed , to adjust position , pt is bed ridden , at risk for decubetus ulers , position should be changed more often , had cirrhosis of the liver; dementia; transient ischemic attack; cerebrovascular accident in 01/2017 with right-sided hemiparesis. Left wrist discomfort status post fall. Gastrointestinal, deep venous thrombosis prophylaxis. Repeat labs. We will follow up. Mariana Fernandez MD MTDJaclyn
[2017-12-05 06:39] LABS: HEMOGLOBIN 11.6 g/dL (14.0-18.0); MEAN CELL VOLUME 80.9 fl (80.0-105.0); MEAN CORPUSCULAR HEMOGLOBIN 26.1 pg (25.0-35.0); MEAN CORPUSCULAR HGB CONC 32.2 g/dl (31.0-37.0); MEAN PLATELET VOLUME 8.5 fl (7.0-11.0); RBC 4.45 10^6/uL (3.5-6.1); RED CELL DISTRIBUTION WIDTH 14.1 % (11.5-14.5); WHITE BLOOD COUNT 6.5 10^3/ul (4.5-11.0)
[2017-12-05 06:53] LABS: HDL CHOLESTEROL 35 mg/dL (29-60)
[2017-12-05 06:56] LABS: IRON 27 ug/dL (45-180)
[2017-12-05 07:06] LABS: LDL CHOLESTEROL 49 mg/dL (0-129)
[2017-12-05 07:09] LABS: % IRON SATURATION 11 % (20-55); TOTAL IRON BINDING CAPACITY 256 ug/dL (261-462)
--- NOTE | 2017-12-05 13:30 | CON ---
DATE: 12/05/2017 REFERRING PHYSICIAN: Dr. Mariana Fernandez. REASON FOR CONSULTATION: History of throat cancer, chronic obstructive lung disease, status post multiple falls. HISTORY OF PRESENT ILLNESS: This is a 72-year-old gentleman with multiple medical issues including history of throat cancer, chronic obstructive lung disease and hypertension, atrial fibrillation, history of stroke, has left-sided hemiparesis, brought into ER with multiple falls, had multiple x-rays done, was unremarkable for any fractures. Presently lying in the bed. Has some cough and shortness of breath with exertion. No nausea, no vomiting, leg pain or leg swelling. PAST MEDICAL HISTORY: As per history of present illness. Also has cirrhotic liver, depression, history of inguinal hernia hypertension. ALLERGIES: NONE KNOWN. SOCIAL HISTORY Not active smoker. Denies any alcohol use. FAMILY HISTORY: No significant cardiopulmonary disease reported. MEDICATIONS: He is on Eliquis 5 mg twice a day, Keppra 500 mg twice a day, metoprolol tartrate 50 mg twice a day, Pepcid 20 mg at bedtime, IV fluid normal saline 100 mL per hour. REVIEW OF SYSTEM: No headache, no rhinitis. Mild cough and shortness of breath. No chest pain. No nausea, no vomiting. Poor appetite. No dysuria. No leg pain or leg swelling. PHYSICAL EXAMINATION: GENERAL: Lying in the bed, no acute distress. VITAL SIGNS: Temperature is 98, heart rate 106, respiratory rate is 20, blood pressure 140/90, pulse ox 99% on room air. HEENT: Dry mucous membrane. Crowded airway. NECK: Supple. No JVD. LUNGS: Had few scattered rhonchi. HEART: S1, S2. ABDOMEN: Soft, nontender, nondistended. G-tube area looks okay. EXTREMITIES: No edema. NEUROLOGIC: Awake, alert, does follow simple commands. LABORATORY DATA: Shows hemoglobin 11.6, hematocrit 36, WBC 6.5, platelet is 281. Sodium 142, potassium 4.3, chloride 104, bicarbonate 26, BUN 19, creatinine 1.1, uric acid 5.6, calcium 9.7, phosphorus 3.9, magnesium 1.5. Iron is 27, AST 74, ALT 43, alk phos is 69. Albumin is 3.9. Cholesterol is 112. TSH 2.58. Urinalysis shows rbc's 0 to 2, wbc's 0 to 2. Chest x-ray done in ER does not show any infiltrate. Also had a head CAT scan which was unremarkable. IMPRESSION AND PLAN: Chronic obstructive lung disease, history of throat cancer, oropharyngeal dysphagia requiring G-tube, atrial fibrillation, history of cerebrovascular accident with left hemiparesis, history of liver cirrhosis, hypertension. We will add inhaled bronchodilator. Keep head at 45 degrees. Aspiration precaution. May continue feeding through the G-tube. Gastric prophylaxis. Pressure ulcer precaution, dietitian consult to readjust G-tube feeding. Follow up labs in the morning. Thank you and we will follow with you. Fatoumata Cruz MD
[2017-12-05] MEDS: Sodium Chloride 0.9% 1,000 ML IV SCH ×2 (13:59→23:28)
[2017-12-05 14:21] LABS: FOLATE > 20.0 ng/mL
--- NOTE | 2017-12-05 16:37 | CON ---
DATE: 12/05/2017 ORTHOPEDIC CONSULT LOCATION: Room 276, bed 2. I was asked to see him for left wrist pain with a history of falling at home and injuring his left wrist. It appears that he has left upper extremity spastic paresis with tenderness to the left wrist. X-rays within normal limits. There is calcified artery on the radial side and has no undue swelling, but he appears to have tenderness to deep palpation as if he has a left wrist sprain, but no fracture that is obvious on the left wrist area by x-ray. I will put him in a left wrist splint since this actually happened a couple of days ago when he fell and we will see how he does with protection and because he is starting to get a flexion contracture of his left wrist, this will keep at neutral. FINAL DIAGNOSIS: Left wrist sprain with spastic paresis of his left upper extremity and we will get him up out of bed and therapy he get indoor. Daniel Segal DO
[2017-12-05 18:35] LABS: BASO # 0.02 K/mm3 (0.0-2.0); BASO % 0.3 % (0.0-3.0); EOS # 0.1 (0.0-0.7); EOS % 2.2 % (1.5-5.0); GRAN # 4.48 (1.4-6.5); GRAN % 76.5 % (50.0-68.0); HEMOGLOBIN 12.2 g/dL (14.0-18.0); LYMPH # 0.9 (1.2-3.4); LYMPH % 15.4 % (22.0-35.0); MEAN CELL VOLUME 82.6 fl (80.0-105.0); MEAN CORPUSCULAR HEMOGLOBIN 26.2 pg (25.0-35.0); MEAN CORPUSCULAR HGB CONC 31.7 g/dl (31.0-37.0); MEAN PLATELET VOLUME 8.8 fl (7.0-11.0); MONO # 0.3 (0.1-0.6); MONO % 5.6 % (1.0-6.0); RBC 4.66 10^6/uL (3.5-6.1); RED CELL DISTRIBUTION WIDTH 14.1 % (11.5-14.5); WHITE BLOOD COUNT 5.9 10^3/ul (4.5-11.0)
[2017-12-05 18:40] LABS: BLOOD UREA NITROGEN 22 mg/dL (7-21); CALCIUM 9.3 mg/dL (8.4-10.5); GFR AFRICAN-AMERICAN > 60; GFR NON-AFRICAN AMERICAN > 60
--- NOTE | 2017-12-05 18:59 | CON ---
DATE: 12/05/2017 SERVICE: Cardiology. REASON FOR THE CONSULTATION AND FOLLOWUP: Atrial fibrillation, flutter, arrhythmia. Admitted with failure to thrive. BRIEF CLINICAL HISTORY: This is a 72-year-old male with past medical history significant for atrial fibrillation, on Eliquis; hypertension; COPD; throat cancer; cirrhosis of the liver; dementia; TIA; CVA with right-sided hemiparesis. Came to the Emergency Room after having a fall and complaining of left wrist. The patient was found to be failure to thrive, so admitted here. PAST MEDICAL HISTORY: Past history significant for history of PEG placement, history of CVA, history of throat cancer, history of COPD, history of atrial fibrillation. Past history significant for cardiomyopathy, hypertension, throat CA 15 years ago, radical neck dissection, dementia, multiple skin ulcers and laceration, history of CVA, swallowing difficulty, status post PEG placement, history of sick sinus syndrome, status post multiple pauses, history of chronic atrial fibrillation, history of permanent pacemaker, successful implantation of VVI pacemaker on 08/03/2017. PREVIOUS CARDIAC WORKUP: History of atrial fibrillation, sick sinus syndrome with status post permanent pacemaker because of bradycardia on 08/03/2017. History of last echocardiography on 08/01/2017 shows normal LV size, normal LV thickness, systolic function severely impaired, global hypokinesis of LV, mild mitral regurgitation, mild tricuspid regurgitation, [id number] pulmonary hypertension, RV systolic pressure of 48, calculated ejection fraction 25% dated 08/01/2017, read by Dr. Cruz. Multiple EKG shows atrial fibrillation on the previous admission. PAST SURGICAL HISTORY: Significant for head and neck cancer, status post radical resection of the neck, status post PEG placement in 07/2017, status post permanent pacemaker placement on 08/01/2017, history of CVA, history of swallowing difficulty. SOCIAL HISTORY: History of smoking in the past. No history of alcohol abuse. FAMILY HISTORY: Noncontributory. ALLERGIES: NO KNOWN DRUG ALLERGY. CURRENT MEDICATIONS: The patient is taking at home Keppra 500 mg daily, metoprolol tartrate 50 mg daily, Eliquis 5 mg p.o. b.i.d, Pepcid 40 mg daily. REVIEW OF SYSTEMS: As per HPI. PHYSICAL EXAMINATION: VITAL SIGNS: Temperature afebrile, heart rate 103, blood pressure 141/90. HEENT: PERRLA. Extraocular muscles intact. NECK: Supple. No carotid bruit. No thyromegaly. CHEST: Clear to auscultation. HEART: S1 and S2 regular. ABDOMEN: Soft. EXTREMITIES: Clubbing and cyanosis negative. LABORATORY DATA: Blood workup as follows: WBC 6.5, hemoglobin 11.6, hematocrit 36, platelet count 281. Chemistry shows sodium 140, potassium 4.3, chloride 104, carbon dioxide 26, anion gap of 16, BUN 19, creatinine 1.1, total protein 8.4, albumin 3.9, albumin and globulin ratio 0.9, TSH 2.58. EKG shows sinus tach, short ND interval. IMPRESSION: A 72-year-old male with past medical history significant for head and neck cancer, status post radical resection, admitted with failure to thrive, cardiac evaluation for atrial fibrillation, with status post permanent pacemaker on 08/01/2017 for tachy-destiny syndrome with multiple long pauses, history of difficulty in swallowing because of the head and neck cancer, status post percutaneous endoscopic gastrostomy placement, failure to thrive, severely decreased left ventricular function, ejection fraction 25%, [id number] mitral regurgitation, mild pulmonary hypertension. RECOMMENDATIONS: Resume back anticoagulation, increase nutritional support, continue Eliquis. Resume back metoprolol 50 p.o. b.i.d. to control the heart rate. The patient . We will follow with you. History of left-sided CVA, history of seizure disorder, history of dementia. As mentioned, history of throat cancer 15 years ago, status post radical neck dissection, dementia, multiple ulcers, laceration, history of cerebrovascular accident. Continue supportive care. We will increase the beta yessenia. Further recommendations depending on the hospital course. We will increase the beta yessenia to 50 b.i.d. If needs, we will put verapamil as well. Thank you, Dr. Fernandez, for providing us the opportunity in taking care of the patient, Geo Ewing. Fatoumata Huynh MD
[2017-12-05] MEDS: Arformoterol 15 mcg/2 ml Inh Sol IH SCH (20:12)
[2017-12-05] MEDS: Budesonide 0.5 mg/2 ml Inhal Susp UD IH SCH (20:12)
--- NOTE | 2017-12-06 00:40 | PN ---
DATE: 12/05/2017 SUBJECTIVE: Patient is a 72-year-old male. Patient is seen and examined at the bedside complaining of pain in the left wrist, having brace on that. No nausea or vomiting. Appetite is not great. Getting bolus feeding with G-tube three times a day. No fever, no chills. No headache, no dizziness. Patient is a very quiet man, not a big historian. Mild cough and shortness of breath on exertion. No chest pain. No dysuria. No swelling of lower extremities. PHYSICAL EXAMINATION: VITAL SIGNS: Temperature 98, heart rate 102, respiratory rate is 20, blood pressure 140/90, pulse oximetry 99% on room air. HEENT: Head: Normocephalic, atraumatic. Eyes: PERRLA. Extraocular muscles intact. Conjunctivae clear. Nose: Patent. Mucous membrane moist. NECK: Supple. No carotid bruits. No JVD or thyromegaly. CHEST: Bilaterally symmetrical. HEART: S1 and S2 positive. LUNGS: Clear to auscultation. ABDOMEN: Soft. Has PEG tube. Nondistended. G-tube looking healthy. EXTREMITIES: Lower extremities: No edema, no cyanosis. Upper extremities: Left wrist is tender and having brace. LABS: Hemoglobin 11.6, hematocrit noted , white blood cell 6.5, platelets 281. Sodium 142, potassium 4.3. BUN 19, creatinine 1.1. AST 74, ALT 43. ASSESSMENT AND PLAN: Mr. Geo Ewing with multiple medical problems that has a fall at home, pain in the left wrist, chronic obstructive lung disease, history of throat cancer, oropharyngeal dysphagia requiring a G-tube, atrial fibrillation, history of cerebrovascular accident with left hemiparesis, history of liver cirrhosis, hypertension. Dr. Cruz added inhaled bronchodilators. Keep head elevated at 45 degrees. Aspiration precautions. Continue feeding through the G-tube. Given bolus feeding. Dietitian evaluation done with speech pathology evaluation. Pressure ulcer precaution. Orthopedic is on the case. Dr. Segal saw the patient. It appears that he has left upper extremity spastic paresis with tenderness of the left wrist, actually within normal limits, difficult to find artery on the radial side and has no undue swelling, but he appears to have tenderness on deep palpation as if he has left wrist sprain, but no fractures that is obvious on the left wrist x-rays. Dr. Segal put a left wrist splint since this actually happened a couple of days ago when he fell and we will see how he does with protection and because of his starting to get flexion, contraction of left wrist, this will keep the neutral position by splint. So, patient had left wrist pain with spastic paresis of the left upper extremity. We will do physical therapy, getting him out of the bed. Discussion done with Tori, nurse practitioner. Appreciated all doctors' input. Mariana Fernandez MD MTDD
[2017-12-06 06:39] LABS: BASO # 0.01 K/mm3 (0.0-2.0); BASO % 0.2 % (0.0-3.0); EOS # 0.2 (0.0-0.7); EOS % 3.2 % (1.5-5.0); GRAN # 3.82 (1.4-6.5); GRAN % 71.5 % (50.0-68.0); HEMOGLOBIN 10.8 g/dL (14.0-18.0); MEAN CELL VOLUME 81.6 fl (80.0-105.0); MEAN CORPUSCULAR HEMOGLOBIN 25.5 pg (25.0-35.0); MEAN CORPUSCULAR HGB CONC 31.3 g/dl (31.0-37.0); MEAN PLATELET VOLUME 8.9 fl (7.0-11.0); MONO # 0.4 (0.1-0.6); MONO % 7.1 % (1.0-6.0); RBC 4.23 10^6/uL (3.5-6.1); RED CELL DISTRIBUTION WIDTH 14.1 % (11.5-14.5); WHITE BLOOD COUNT 5.3 10^3/ul (4.5-11.0)
[2017-12-06 07:10] LABS: ALB/GLOB RATIO 0.8 (1.1-1.8); ALBUMIN 2.8 g/dL (3.0-4.8); ALT/SGPT 38 U/L (7-56); AST/SGOT 36 U/L (17-59); BLOOD UREA NITROGEN 17 mg/dL (7-21); GFR AFRICAN-AMERICAN > 60; GFR NON-AFRICAN AMERICAN > 60
[2017-12-06] MEDS: Budesonide 0.5 mg/2 ml Inhal Susp UD IH SCH ×2 (07:43→19:39)
[2017-12-06] MEDS: Arformoterol 15 mcg/2 ml Inh Sol IH SCH ×2 (07:43→19:39)
[2017-12-06] MEDS ORDERED: Magnesium 2 gm/50 ml NS 2 GM/50 ML BAG IVPB ONE (08:38)
[2017-12-06] MEDS: Magnesium Oxide 400 mg Tab UD PO SCH ×2 (10:16→17:35)
[2017-12-06] MEDS: Sodium Chloride 0.9% 1,000 ML IV SCH (10:17)
--- NOTE | 2017-12-06 10:52 | PN ---
DATE: 12/06/2017 LOCATION: The patient in room 276, bed 2. REASON FOR CONSULTATION: Follow up atrial flutter/fibrillation, failure to thrive, throat cancer, cirrhosis of liver, dementia, COPD, hypertension, CVA with right-sided hemiparesis. BRIEF CLINICAL HISTORY: The patient is known to have above conditions. Admitted with fall and complaining left wrist pain. The patient was found to be in failure to thrive situation. The patient denies chest pain, shortness of breath or palpitation. PHYSICAL EXAMINATION: VITAL SIGNS: Blood pressure 131/84, respirations 20, pulse is 103, temperature 97.5. HEENT: Head is normocephalic. Eyes: Pupils normal. Conjunctivae slightly pale. NECK: JVP low. Carotids equal. THORAX: AP diameter normal. LUNGS: No significant rales. CARDIOVASCULAR: S1 and S2. Irregular rhythm due to atrial fibrillation. ABDOMEN: Soft, nontender. No organomegaly. Bowel sounds normal. EXTREMITIES: No clubbing. No cyanosis. LABORATORY DATA: Labs show WBC 5.3, hemoglobin 10.8, hematocrit 34.5, platelet 284. Sodium 142, potassium 4.1, BUN 17, creatinine 0.7, calcium 9, phosphorus 2.8, magnesium 1.4. AST, ALT normal. Total protein 6.4, albumin 2.8. Echocardiography: The patient had an echo on 08/01/2017, showed normal-sized LV, normal LV thickness, systolic function severely impaired, global hypokinesis. Calculated ejection fraction about 25%. Mild tricuspid regurg, mild to moderate pulmonary hypertension. RV systolic pressure of 48 mmHg. Multiple EKGs in the past had shown atrial flutter/fibrillation. The patient also has pacemaker insertion for bradyarrhythmias on 08/01/2017. DIAGNOSES: Atrial flutter/fibrillation, status post permanent pacemaker insertion, history of throat cancer, chronic obstructive pulmonary disease, old cerebrovascular accident with hemiparesis, difficulty in swallowing, head and neck cancer, history of gastrostomy tube placement, failure to thrive, cardiomyopathy with ejection fraction of 25%, mild to moderate mitral regurgitation, mild pulmonary hypertension. PLAN: To increase the nutritional support. The patient's magnesium level is low. We will replace the magnesium IV. The patient is on Eliquis 5 mg b.i.d., iron sucrose IV has been already ordered, Keppra 500 mg p.o. every 12 hours, metoprolol tartrate 50 mg b.i.d, magnesium oxide 400 mg b.i.d., mag sulfate 2 g IV has been ordered for today, Pepcid 20 mg at bedtime. The patient is getting sodium chloride 100 mL an hour fluid. Chest x-ray on 12/04/2017: Lung, clear lungs. We will continue present therapy. We will repeat CBC, SMA-7, magnesium level in the morning. We will follow with you. Fatoumata Torres MD
--- NOTE | 2017-12-06 13:14 | PN ---
DATE: 12/06/2017 PULMONARY PROGRESS NOTE REFERRING PHYSICIAN: Mariana Fernandez MD. SUBJECTIVE: He is lying in the bed, head at 45 degrees, sleepy, arousable. Mild cough. No shortness breath. No chest pain. No nausea. No vomiting. No diarrhea. No dysuria, leg pain, leg swelling. OBJECTIVE: GENERAL: In no acute distress. VITAL SIGNS: Temperature is 98, heart rate is 102, respiratory rate is 20, blood pressure 123/76, pulse ox 95% on room air. HEENT: Moist mucous membrane. Crowded airway. NECK: Supple. No JVD. LUNGS: Have a fair airflow with rhonchi. HEART: S1 and S2. ABDOMEN: Soft, nontender, nondistended. G-tube area looks okay. EXTREMITIES: There is no edema. NEUROLOGICAL: Sleepy, arousable. Follows simple command. MEDICATIONS: He is on Brovana inhaled twice a day, Eliquis 5 mg twice a day, Keppra 500 mg twice a day, metoprolol tartrate 50 mg twice a day, mag oxide 400 mg twice a day, Pepcid 20 mg at bedtime, Pulmicort inhaled twice a day, IV fluid normal saline 100 mL/hour. LABORATORY DATA: Shows hemoglobin 10.8, hematocrit 34.5, WBC 5.3, platelet count is 284. Sodium 142, potassium 4.1, chloride 111, bicarbonate is 22, BUN 17, creatinine 0.7, glucose is 86, calcium is 9, phosphorus is 2.8, magnesium is 1.4, AST 36, ALT 38, alk phos is 56, albumin is 2.8. Microbiology: Urine culture, there is no growth. IMPRESSION AND PLAN: Chronic obstructive lung disease, history of head and neck cancer, oropharyngeal dysphagia requiring gastrostomy tube, atrial fibrillation, history of cerebrovascular accident, left hemiparesis, cirrhotic liver, hypertension, malnutrition. Pulmonary point of view, continue bronchodilator, keep head at 45 degrees, aspiration precaution. Can have Speech to evaluate the patient for oropharyngeal dysphagia, dietitian for gastrostomy tube recommendations. Gastric prophylaxis, anticoagulation, out of bed to chair, fall precaution. We will get therapy involved. Thank you and we will follow with you. Fatoumata Cruz MD [facility] # [id number]
--- NOTE | 2017-12-07 00:11 | PN ---
DATE: 12/06/2017 SUBJECTIVE: The patient is a 72-year-old male. The patient was seen and examined at the bedside on 12/06/2017, looking comfortable. No nausea, vomiting or diarrhea. No hematuria. No hematochezia. His head is at 45 degrees. Sleepy, arousable. Mild coughing. No fever, no chills. No dysuria. No swelling of the leg. PHYSICAL EXAMINATION: VITAL SIGNS: Temperature 98, heart rate 102, respiratory rate 20, blood pressure 143/76, pulse oximetry 95% on room air. HEENT: Head: Normocephalic, atraumatic. Eyes: PERRLA. Extraocular muscles intact. Conjunctivae clear. Nose: Patent. Mucous membrane moist. NECK: Supple. No carotid bruits. No JVD or thyromegaly. CHEST: Bilaterally symmetrical. HEART: S1 and S2 positive. LUNGS: Fair air flow with rhonchi. ABDOMEN: Soft, nontender. No organomegaly, Nondistended. Has G-tube area looking okay. EXTREMITIES: No edema, no cyanosis. NEUROLOGIC: The patient is sleepy, arousable, following simple commands. MEDICATIONS: Brovana, Eliquis, Keppra, metoprolol, Pepcid, Pulmicort, Lipitor. LABORATORY DATA: Hemoglobin 10.8, hematocrit 34.5, white blood cells 5.6, platelets 284. Sodium 142, potassium 4.1. BUN 17, creatinine 0.7, glucose 86. AST 36, ALT 38. ASSESSMENT AND PLAN: Mr. Geo Ewing is a 72-year-old male with multiple medical problems, history of chronic obstructive lung disease, history of head and neck cancer, oropharyngeal dysphagia requiring gastrostomy tube, atrial fibrillation, history of cerebrovascular accident with left hemiparesis, cirrhosis of liver, hypertension, malnutrition. Plan is to continue bronchodilators, aspiration precautions. Speech evaluation for the patient to see oropharyngeal dysphagia, consulted dietitian for G-tube feeding recommendation, gastric prophylaxis. Out of bed to the chair, fall precautions. Length of time discussion done with the patient's daughter, Eladia. All questions answered. The patient requires hospital bed for frequent positioning to alleviate pain and decubitus ulcers, not feasible with ordinary bed. The patient already has ulcers on the feet, heel and in distal scrotal area as per family and the patient has pharyngeal carcinoma and is on aspiration risk, so we requires head of the bed to be elevated more than 30 degrees most of the time due to copd , with hemiparesis . The patient has history of , ca of head and neck so had dysphagia , is at risk for aspiration and skin breakdown , has PEG tube. We will continue present treatment. Gastrointestinal and deep venous thrombosis prophylaxis. Repeat labs. We will follow. Mariana Fernandez MD MTDJaclyn
[2017-12-07 06:41] LABS: BASO # 0.01 K/mm3 (0.0-2.0); BASO % 0.2 % (0.0-3.0); EOS # 0.2 (0.0-0.7); GRAN # 4.1 (1.4-6.5); GRAN % 67.7 % (50.0-68.0); HEMOGLOBIN 10.8 g/dL (14.0-18.0); LYMPH # 1.2 (1.2-3.4); LYMPH % 20.5 % (22.0-35.0); MEAN CELL VOLUME 80.8 fl (80.0-105.0); MEAN CORPUSCULAR HGB CONC 32.1 g/dl (31.0-37.0); MEAN PLATELET VOLUME 8.8 fl (7.0-11.0); MONO # 0.5 (0.1-0.6); MONO % 7.6 % (1.0-6.0); RBC 4.16 10^6/uL (3.5-6.1); RED CELL DISTRIBUTION WIDTH 14.1 % (11.5-14.5); WHITE BLOOD COUNT 6.1 10^3/ul (4.5-11.0)
[2017-12-07 06:47] LABS: BLOOD UREA NITROGEN 15 mg/dL (7-21); CALCIUM 8.4 mg/dL (8.4-10.5); GFR AFRICAN-AMERICAN > 60; GFR NON-AFRICAN AMERICAN > 60
[2017-12-07] MEDS: Arformoterol 15 mcg/2 ml Inh Sol IH SCH ×2 (08:07→19:55)
[2017-12-07] MEDS: Budesonide 0.5 mg/2 ml Inhal Susp UD IH SCH ×2 (08:07→19:55)
--- NOTE | 2017-12-07 09:45 | CP.PCM.PN ---
Subjective - Date & Time of Evaluation Date of Evaluation: 12/07/17 Time of Evaluation: 07:00 - Subjective Subjective: Lying in bed, awake, no distress Reason for consultation and follow up:Cardiac evaluation,history of atrial fibrillation on Eliquis,TIA, CVA (01/2017), right sided weakness/hemiparesis, hypertension, COPD,throat cancer, cirrhosis, dementia Seen and examined by me and Dr. Huynh Objective - Vital Signs/Intake and Output Vital Signs (last 24 hours): Temp Pulse Resp BP Pulse Ox 98.1 F 101 H 20 119/88 98 12/07/17 00:01 12/07/17 06:00 12/07/17 00:01 12/07/17 00:01 12/07/17 00:01 Intake and Output: 12/07/17 12/07/17 06:59 18:59 Intake Total 240 Balance 240 - Medications Medications: Current Medications Apixaban (Eliquis) 5 mg PO BID [facility] PRN Reason: Protocol Last Admin: 12/06/17 17:35 Dose: 5 mg Arformoterol Tartrate (Brovana) 15 mcg IH [id number] [facility] Last Admin: 12/07/17 08:07 Dose: 15 mcg Budesonide (Pulmicort Respules) 0.5 mg IH [id number] [facility] Last Admin: 12/07/17 08:07 Dose: 0.5 mg Famotidine (Pepcid) 20 mg PO HS [facility] Last Admin: 12/06/17 22:20 Dose: 20 mg Levetiracetam (Keppra) 500 mg PO Q12 [facility] Last Admin: 12/06/17 22:20 Dose: 500 mg Magnesium Oxide (Mag-Ox) 400 mg PO BID [facility] Last Admin: 12/06/17 17:35 Dose: 400 mg Metoprolol Tartrate (Lopressor) 50 mg PO BID [facility] Last Admin: 12/06/17 17:36 Dose: 50 mg - Labs Labs: 12/07/17 06:15 12/07/17 06:15 - Constitutional Appears: No Acute Distress - ENT Exam ENT Exam: Mucous Membranes Dry - Respiratory Exam Respiratory Exam: Decreased Breath Sounds, NORMAL BREATHING PATTERN - Cardiovascular Exam Cardiovascular Exam: Irregular Rhythm, +S1, +S2 Additional comments: Afib/Aflutter 100's - GI/Abdominal Exam GI & Abdominal Exam: Soft, Normal Bowel Sounds Additional comments: PEG intact - Extremities Exam Additional comments: left heel ulcer - Neurological Exam Neurological Exam: Alert, Awake - Skin Skin Exam: Dry, Warm Assessment and Plan - Assessment and Plan (Free Text) Assessment: A 72 year old male who came to the ER due to left wrist pain from fall. Admitted for failure to thrive.History of atrial fibrillation on Eliquis,TIA, CVA (01/2017), right sided weakness/hemiparesis, hypertension, COPD,cirrhosis, dementia, throat cancer 15 years ago with radical neck dissection, swallowing difficulty post PEG insertion, history of sick sinus syndrome with multiple pauses thus PPM inserted (VVI PPM 08/03/2017) ECHO 08/01/2017 LVEF 25%,systolic function severely impaired, glocal hypokinesis , mild MR/TR, moderate pulmonary hypertension, EKG- atrial fibrillation. Plan: Swallowing evaluation done-bite size food Nutritional support Jevity via PEG Aspiration precaution Heart rate 100's Atrial flutter Continue Eliquis 5 mg BID,Lopressor 50 mg BID Blood pressure controlled Replenish magnesium Continue current treatment Continue current medications Will follow up Plan and treatment discussed with Dr. Huynh
[2017-12-07] MEDS: Magnesium Oxide 400 mg Tab UD PO SCH ×2 (10:05→18:29)
[2017-12-07] MEDS ORDERED: Magnesium Sulfate 2 gm/50 ml 2 GM/50 ML BAG IVPB ONE (10:11)
--- NOTE | 2017-12-08 00:26 | PN ---
DATE: 12/07/2017 PULMONARY PROGRESS NOTE REFERRING PHYSICIAN: Mariana Fernandez MD. SUBJECTIVE: He is lying in the bed, head at 45 degrees. Has a poor appetite. Nursing staff at bedside. No headache, no rhinitis. Short of breath on exertion. No nausea, no dysuria. No leg pain, no leg swelling. OBJECTIVE: GENERAL: In no acute distress. VITAL SIGNS: Temperature is 98, heart is 101, respiratory rate is 20, blood pressure 135/72, pulse ox 38% on nasal cannula. HEENT: Moist mucous membranes. No ulcer or thrush noted. NECK: Supple. No JVD. LUNGS: Have a fair airflow with rhonchi. HEART: S1 and S2. ABDOMEN: Soft, nontender, nondistended. G-tube area looks okay. EXTREMITIES: There is no edema. NEUROLOGIC: Awake, alert, follows simple command. MEDICATIONS: He is on Brovana inhaled twice a day, Eliquis 5 mg twice a day, Keppra 500 mg twice a day, metoprolol tartrate 100 mg twice a day, magnesium oxide 400 mg twice a day, Pepcid 20 mg daily, Pulmicort inhale twice a day. LABORTORY DATA: Shows hemoglobin 10.8, hematocrit 33.6, WBC 6.1, platelet count is 249. Sodium 139, potassium 3.8, chloride 110, bicarbonate 22, BUN 15, creatinine 0.7, glucose 88, calcium is 8.4, phosphorus 2.5, magnesium 1.5. AST 36, ALT 38, alk phos is 56, albumin 2.8. IMPRESSION AND PLAN: Chronic obstructive lung disease, history of head and neck cancer, oropharyngeal dysphagia requiring gastrostomy tube, atrial fibrillation, history of cerebrovascular accident with left hemipareses, cirrhotic liver, hypertension, malnutrition. Spoke to nursing staff. Requested the patient needs less than 75% of the meal. May give Ensure one can three times a day with the meal. Continue inhaled bronchodilator. Keep head at 45 degrees. Gastric and deep venous thrombosis prophylaxis. Thank you and we will follow with you. Fatoumata Cruz MD [facility] # [id number]
--- NOTE | 2017-12-08 02:27 | PN ---
DATE: 12/07/2017 SUBJECTIVE: Patient is a 72-year-old male. Patient seen and examined on the bedside, looking comfortable. Sometime coughing especially when he was eating, getting shortness of breath, but better. No fever. No chills. No headache. No dizziness. No nausea, vomiting, or diarrhea. PHYSICAL EXAMINATION: VITAL SIGNS: Temperature 97.3, pulse 101, blood pressure 120/80 respiratory rate 20. HEENT: Head normocephalic, atraumatic. Eyes PERRLA. Extraocular muscles intact. Conjunctivae clear. Nose patent. Mucous membrane moist. NECK: Supple. No carotid bruit. No JVD or thyromegaly. CHEST: Bilaterally symmetrical. HEART: S1 and S2 positive. LUNGS: Positive wheezing bilaterally. ABDOMEN: Soft. Bowel sounds present. No organomegaly. Having PEG tube. EXTREMITIES: Lower extremities, no edema, no cyanosis. Left upper hand has brace. NEUROLOGIC: Patient is awake. Follow simple commands. MEDICATIONS: Brovana inhalers, Eliquis, Keppra, metoprolol, Pepcid, Pulmicort, and IV fluid. LABORATORY DATA: White blood cells 6.1, hemoglobin 10.8, hematocrit 33.6, platelets 88. Sodium 139, potassium 3.8, BUN 15, creatinine 0.7, glucose 117, magnesium 1.5. ASSESSMENT: Mr. Geo Ewing is a 72-year-old male with anemia, hyperchloremia, hyperglycemia, hypomagnesemia, hypoalbuminemia, proteinuria, ketonuria, has chronic obstructive lung disease, history of head and neck cancer, oropharyngeal dysphagia, requiring a gastrostomy tube, atrial fibrillation, history of cerebrovascular accident, history of hemiparesis, cirrhosis of the liver, hypertension, malnutrition, cachexic. PLAN: Continue bronchodilator. Keep head elevated at more than 30 degrees. Patient has COPD. Need head elevation more than 30 degrees and need hospital bed for frequent changing of position. Patient has a history of aspiration pneumonia and due to the cancer of the head and neck, he is at risk for more aspiration and because of COPD in his lying position, he cannot breathe very well, need to change patient position more often and had to keep head at more than 45 degree due to COPD and because of decubitus ulcer, patient's position should be changed also more often and that is not feasible with regular bed, need hospital bed. Social workers are working on that. Gastric prophylaxis. Anticoagulation. Fall precautions. We will follow up. Mariana Fernandez MD MTDD
--- NOTE | 2017-12-08 06:48 | CP.PCM.PN ---
Subjective - Date & Time of Evaluation Date of Evaluation: 12/08/17 Time of Evaluation: 06:10 - Subjective Subjective: Awake,lying in bed, awake, no distress Reason for consultation and follow up:Cardiac evaluation,history of atrial fibrillation on Eliquis,TIA, CVA (01/2017), right sided weakness/hemiparesis, hypertension, COPD,throat cancer, cirrhosis, dementia Seen and examined by me and Dr. Huynh Objective - Vital Signs/Intake and Output Vital Signs (last 24 hours): Temp Pulse Resp BP Pulse Ox 97.3 F L 101 H 21 135/72 98 12/07/17 12:00 12/07/17 12:00 12/07/17 12:00 12/07/17 18:29 12/07/17 00:01 Intake and Output: 12/07/17 12/08/17 18:59 06:59 Intake Total 50 420 Balance 50 420 - Medications Medications: Current Medications Apixaban (Eliquis) 5 mg PO BID [facility] PRN Reason: Protocol Last Admin: 12/07/17 18:29 Dose: 5 mg Arformoterol Tartrate (Brovana) 15 mcg IH [id number] [facility] Last Admin: 12/07/17 19:55 Dose: 15 mcg Budesonide (Pulmicort Respules) 0.5 mg IH [id number] [facility] Last Admin: 12/07/17 19:55 Dose: 0.5 mg Famotidine (Pepcid) 20 mg PO HS [facility] Last Admin: 12/07/17 21:28 Dose: 20 mg Levetiracetam (Keppra) 500 mg PO Q12 [facility] Last Admin: 12/07/17 21:28 Dose: 500 mg Magnesium Oxide (Mag-Ox) 400 mg PO BID [facility] Last Admin: 12/07/17 18:29 Dose: 400 mg Metoprolol Tartrate (Lopressor) 100 mg PO BID [facility] Last Admin: 12/07/17 18:29 Dose: 100 mg - Labs Labs: 12/07/17 06:15 12/07/17 06:15 - Constitutional Appears: No Acute Distress - Eye Exam Eye Exam: Normal appearance - ENT Exam ENT Exam: Mucous Membranes Moist - Respiratory Exam Respiratory Exam: Clear to Ausculation Bilateral, NORMAL BREATHING PATTERN - Cardiovascular Exam Cardiovascular Exam: +S1, +S2 - GI/Abdominal Exam GI & Abdominal Exam: Soft, Normal Bowel Sounds Additional comments: PEG - Extremities Exam Extremities Exam: Normal Capillary Refill - Neurological Exam Neurological Exam: Alert, Awake - Psychiatric Exam Psychiatric exam: Normal Affect - Skin Skin Exam: Intact, Warm Assessment and Plan - Assessment and Plan (Free Text) Assessment: A 72 year old male who came to the ER due to left wrist pain from fall. Admitted for failure to thrive.History of atrial fibrillation on Eliquis,TIA, CVA (01/2017), right sided weakness/hemiparesis, hypertension, COPD,cirrhosis, dementia, throat cancer 15 years ago with radical neck dissection, swallowing difficulty post PEG insertion, history of sick sinus syndrome with multiple pauses thus PPM inserted (VVI PPM 08/03/2017) ECHO 08/01/2017 LVEF 25%,systolic function severely impaired, glocal hypokinesis , mild MR/TR, moderate pulmonary hypertension, EKG- atrial fibrillation.Swallowing evaluation done-bite size food, Jevity to PEG. Plan: Verbalized doing okay Aspiration precaution Stable cardiac status Off telemetry Heart rate controlled Continue Eliquis 5 mg BID,Lopressor 50 mg BID Blood pressure controlled Continue current treatment Continue current medications Will follow up Plan and treatment discussed with Dr. Huynh
[2017-12-08] MEDS: Budesonide 0.5 mg/2 ml Inhal Susp UD IH SCH (07:18)
[2017-12-08] MEDS: Arformoterol 15 mcg/2 ml Inh Sol IH SCH (07:18)
[2017-12-08] MEDS: Magnesium Oxide 400 mg Tab UD PO SCH ×2 (09:38→16:59)
[2017-12-08] MEDS ORDERED: Magnesium Sulfate 1 gm in D5W 1 GM/100 ML BAG IVPB ONE (10:01)
[2017-12-08 17:53] VITALS: BP 130/89; PULSE 102; RESP 20; TEMP 97.9; O2SAT 100
--- NOTE | 2017-12-08 21:43 | PN ---
DATE: 12/08/2017 PULMONARY PROGRESS NOTE REFERRING PHYSICIAN: Mariana Fernandez MD. SUBJECTIVE: Patient is sitting up in bed, feels okay. Ate entire breakfast this morning. He is pending discharge today. No headache. No rhinitis. Has some shortness of breath. No cough. No nausea. No hematuria. No leg pain or leg swelling reported. OBJECTIVE: VITAL SIGNS: Temperature 98.5, blood pressure 135/72, pulse 87, respirations 18, pulse ox 98% on room air. GENERAL: Patient is sitting up in bed, in no acute distress. HEENT: Moist mucous membrane. NECK: Supple. No JVD. LUNGS: Fair airflow with few rhonchi. CARDIAC: S1, S2. ABDOMEN: Soft, nontender. G-tube site looks okay. EXTREMITIES: No edema. NEUROLOGIC: Awake, alert, follows command. LABORATORY DATA: Reviewed. Magnesium 1.6. No other results since yesterday. MEDICATIONS: Reviewed. Magnesium sulfate IV piggyback 1 g one time dose. No other changes to medications since yesterday. IMPRESSION AND PLAN: Chronic obstructive lung disease, history of head and neck cancer, oropharyngeal dysphagia requiring G-tube, atrial fibrillation, history of cerebrovascular accident with left hemiparesis, on anticoagulation, cirrhotic liver, hypertension, malnutrition. Pulmonary point of view, case discussed with nursing staff. Discharge planning for today. Continue supplemental nutrition when patient eats less than 75% via Gtube. Keep head elevated at 45 degrees. Gastric prophylaxis, deep vein thrombosis prophylaxis. Continue inhaled bronchodilators. This patient was examined with Dr. Cruz and discussed assessment and plan as described above. Thank you for this consult and we will follow with you. Aruna Pang APN Fatoumata Cruz MD. MTDJaclyn
== END 2017-12-08 18:20 | disposition home or self-care (01) | DRG 563 ==
LOC: ED 10:56 → ERH 13:45 → 2RSO 15:33 → 5RNO 12-07 14:23
PROVIDERS: ADMIT Internal Medicine; ATTEND Internal Medicine
DX: S63.502A Unspecified sprain of left wrist, initial encounter (principal); I42.9 Cardiomyopathy, unspecified; I69.351 Hemiplegia and hemiparesis following cerebral infarction affecting right dominant side; I69.354 Hemiplegia and hemiparesis following cerebral infarction affecting left non-dominant side; W19.XXXA Unspecified fall, initial encounter; Y92.009 Unspecified place in unspecified non-institutional (private) residence as the place of occurrence of the external cause; I10 Essential (primary) hypertension; Z85.819 Personal history of malignant neoplasm of unspecified site of lip, oral cavity, and pharynx; R13.12 Dysphagia, oropharyngeal phase; M47.9 Spondylosis, unspecified; D64.9 Anemia, unspecified; E83.42 Hypomagnesemia; E87.8 Other disorders of electrolyte and fluid balance, not elsewhere classified; E88.09 Other disorders of plasma-protein metabolism, not elsewhere classified; F03.90 Unspecified dementia, unspecified severity, without behavioral disturbance, psychotic disturbance, mood disturbance, and anxiety; I08.1 Rheumatic disorders of both mitral and tricuspid valves; I27.20 Pulmonary hypertension, unspecified; I48.2 Chronic atrial fibrillation; J44.9 Chronic obstructive pulmonary disease, unspecified; K74.60 Unspecified cirrhosis of liver; L89.619 Pressure ulcer of right heel, unspecified stage; R29.6 Repeated falls; R62.7 Adult failure to thrive; Z79.01 Long term (current) use of anticoagulants; Z87.891 Personal history of nicotine dependence; Z91.81 History of falling; Z93.1 Gastrostomy status; Z95.0 Presence of cardiac pacemaker; L89.629 Pressure ulcer of left heel, unspecified stage

== ENCOUNTER 2018-02-06 19:01 | Inpatient (IN) | payer MEDICARE, OTHER ==
[2018-02-06 19:01] VITALS: PULSE 75
[2018-02-06 21:32] LABS: BASO # 0.01 K/mm3 (0.0-2.0); BASO % 0.1 % (0.0-3.0); EOS # 0.1 (0.0-0.7); EOS % 1.9 % (1.5-5.0); GRAN # 5.14 (1.4-6.5); GRAN % 74.5 % (50.0-68.0); HEMOGLOBIN 12.1 g/dL (14.0-18.0); LYMPH # 1.2 (1.2-3.4); LYMPH % 16.7 % (22.0-35.0); MEAN CELL VOLUME 81.9 fl (80.0-105.0); MEAN CORPUSCULAR HEMOGLOBIN 26.4 pg (25.0-35.0); MEAN CORPUSCULAR HGB CONC 32.3 g/dl (31.0-37.0); MEAN PLATELET VOLUME 8.7 fl (7.0-11.0); MONO # 0.5 (0.1-0.6); MONO % 6.8 % (1.0-6.0); RBC 4.58 10^6/uL (3.5-6.1); RED CELL DISTRIBUTION WIDTH 15.8 % (11.5-14.5); WHITE BLOOD COUNT 6.9 10^3/ul (4.5-11.0)
[2018-02-06 21:41] LABS: INR 1.2; PARTIAL THROMBOPLASTIN TIME 26.6 Seconds (25.1-36.5); PROTHROMBIN TIME 13.7 SECONDS (9.4-12.5)
[2018-02-06 22:06] LABS: ALB/GLOB RATIO 0.9 (1.1-1.8); ALBUMIN 3.4 g/dL (3.0-4.8); ALT/SGPT 37 U/L (7-56); AST/SGOT 44 U/L (17-59); BLOOD UREA NITROGEN 23 mg/dL (7-21); CALCIUM 9.2 mg/dL (8.4-10.5); GFR NON-AFRICAN AMERICAN > 60
[2018-02-06 22:18] LABS: TROPONIN I 0.02 ng/mL
[2018-02-06] MEDS ORDERED: Vancomycin 1gm in NS 250ml 1 GM/250 ML BAG IVPB STA (22:20)
[2018-02-06] MEDS ORDERED: metroNIDAZOLE IV 500 mg/100 ml 500 MG/100 ML BAG IVPB STA (22:21)
[2018-02-06] MEDS: Sodium Chloride 0.9% 1,000 ML IV SCH (22:48)
--- NOTE | 2018-02-06 23:49 | ED PDOC ---
Arrival/HPI - General Chief Complaint: Upper Extremity Problem/Injury Time Seen by Provider: 02/06/18 19:31 Historian: Patient - History of Present Illness Narrative History of Present Illness (Text): 02/06/18 19:31 72 year old male, whose past medical history includes A fib, hypertension, COPD , throat cancer, cirrhosis, Dementia and TIA, presents to the emergency department by family members, for evaluation of generalized weakness and poor appetite. Patient is confused and unable to offer ROS. HPI is limited due to patient's mental state. Time/Duration: Prior to Arrival Symptom Onset: Gradual Symptom Course: Unchanged Past Medical History - Provider Review Nursing Documentation Reviewed: Yes - Infectious Disease Hx of Infectious Diseases: None - Cardiac Hx Hypertension: Yes - Pulmonary Hx Chronic Obstructive Pulmonary Disease (COPD): Yes - Neurological HX Cerebrovascular Accident: Yes (L sided weakness) - HEENT Hx HEENT Disorder: No - Renal Hx Renal Disorder: No - Endocrine/Metabolic Hx Endocrine Disorders: No - Hematological/Oncological Hx Blood Disorders: Yes Hx Anemia: Yes Hx Cancer: Yes (throat) - Integumentary Hx Dermatological Disorder: Yes Other/Comment: multiple ble skin discolorations, laceration above left eyelid - Musculoskeletal/Rheumatological Hx Arthritis: Yes - Gastrointestinal Hx Gastrointestinal Disorders: Yes (L INGUINAL HERNIA) Hx Liver Failure: Yes (cirrhosis) - Genitourinary/Gynecological Hx Genitourinary Disorders: Yes Hx Incontinence: Yes - Psychiatric Hx Psychophysiologic Disorder: Yes Hx Depression: Yes Hx Substance Use: No - Surgical History Hx Inguinal Hernia Repair: Yes (right) - Anesthesia Hx Anesthesia Reactions: No Hx Malignant Hyperthermia: No - Suicidal Assessment Feels Threatened In Home Enviroment: No Family/Social History - Physician Review Nursing Documentation Reviewed: Yes Family/Social History: No Known Family HX Smoking Status: Unknown If Ever Smoked Hx Alcohol Use: No Hx Substance Use: No Allergies/Home Meds Allergies/Adverse Reactions: Allergies No Known Allergies Allergy (Verified 02/06/18 22:49) Home Medications: Home Meds Medication Instructions Recorded Confirmed levETIRAcetam [Keppra] 500 mg PO Q12 11/28/17 02/06/18 Review of Systems - Review of Systems Systems not reviewed;Unavailable: Altered Mental Status Physical Exam Vital Signs Reviewed: Yes Vital Signs Temp Pulse Resp BP Pulse Ox 02/06/18 23:32 98.1 F 106 H 18 146/93 H 100 02/06/18 22:52 107 H 18 147/97 H 100 Temperature: Afebrile Blood Pressure: Normal Pulse: Regular Respiratory Rate: Normal Appearance: Positive for: Well-Appearing, Non-Toxic, Comfortable Pain Distress: None Mental Status: Positive for: Alert and Oriented X 3 - Systems Exam Head: Present: Atraumatic, Normocephalic Pupils: Present: PERRL Extroacular Muscles: Present: EOMI Conjunctiva: Present: Normal Mouth: Present: Moist Mucous Membranes Neck: Present: Normal Range of Motion Respiratory/Chest: Present: Clear to Auscultation, Good Air Exchange. No: Respiratory Distress, Accessory Muscle Use Cardiovascular: Present: Regular Rate and Rhythm, Normal S1, S2. No: Murmurs Abdomen: Present: Other (purulent material surrounding G-Tube). No: Tenderness , Distention, Peritoneal Signs Back: Present: Normal Inspection Upper Extremity: Present: Normal Inspection, NORMAL PULSES, Neurovascularly Intact. No: Cyanosis, Edema, Deformity Lower Extremity: Present: Normal Inspection. No: Edema Neurological: Present: GCS=15, CN II-XII Intact, Speech Normal. No: Motor Func Grossly Intact (left sided weakness) Skin: Present: Warm, Dry, Normal Color. No: Rashes Psychiatric: Present: Alert Medical Decision Making ED Course and Treatment: 02/06/18 20:00 Impression: 72 year old male presents to the emergency department sent by family for evaluation status post generalized weakness and poor appetite. Plan: -- EKG -- Chest X-ray -- CT Head -- Labs -- Flagyl -- Vancomycin -- X-ray left wrist -- Reassess and disposition Prior Visits: Notes and results from previous visits were reviewed. case d/w dr lewis will admit for iv ab Progress Notes: 02/07/18 00:38 - Lab Interpretations Lab Results: 02/06/18 21:20 02/06/18 21:45 Lab Results 02/06/18 21:45: Sodium 136, Potassium 4.7, Chloride 103, Carbon Dioxide 30, Anion Gap 8 L, BUN 23 H, Creatinine 0.8, Est GFR ( Amer) > 60, Est GFR ( Non-Af Amer) > 60, Random Glucose 96, Calcium 9.2, Total Bilirubin 0.4, AST 44, ALT 37, Alkaline Phosphatase 68, Troponin I 0.02 D, Total Protein 7.3, Albumin 3.4, Globulin 3.9, Albumin/Globulin Ratio 0.9 L 02/06/18 21:20: PT 13.7 H, INR 1.20, APTT 26.6 02/06/18 21:20: WBC 6.9, RBC 4.58, Hgb 12.1 L, Hct 37.5 L, MCV 81.9, MCH 26.4, MCHC 32.3, RDW 15.8 H, Plt Count 348, MPV 8.7, Gran % 74.5 H, Lymph % (Auto) 16.7 L, Emanuel % (Auto) 6.8 H, Eos % (Auto) 1.9, Baso % (Auto) 0.1, Gran # 5.14, Lymph # (Auto) 1.2, Emanuel # (Auto) 0.5, Eos # (Auto) 0.1, Baso # (Auto) 0.01 - RAD Interpretation Radiology Orders: 02/06/18 20:08 HEAD W/O CONTRAST [CT] Stat 02/06/18 20:09 CHEST ONE VIEW [RAD] Stat WRIST, LEFT 3 VIEWS [RAD] Stat - EKG Interpretation EKG Interpretation (Text): 02/07/18 00:18 nsr rate 105 lvh with strain nssts changes - Medication Orders Current Medication Orders: Acetaminophen (Tylenol 325mg Tab) 650 mg PO Q4H PRN PRN Reason: Pain, Mild (1-3) Sodium Chloride (Sodium Chloride 0.9%) 1,000 mls @ 80 mls/hr IV .[id number] [facility] Last Admin: 02/06/18 22:48 Dose: 80 mls/hr eMAR Start Stop Document 02/06/18 22:48 HI (Rec: 02/06/18 22:48 HI [id number]) Intravenous Solution Start Date 02/06/18 Start Time 21:00 Sodium Chloride (Sodium Chloride 0.9%) 1,000 mls @ 100 mls/hr IV .Q10H STA Stop: 02/07/18 10:03 Last Admin: 02/07/18 00:31 Dose: 100 mls/hr eMAR Start Stop Document 02/07/18 00:31 OCS (Rec: 02/07/18 00:32 OCS [id number]) Intravenous Solution Start Date 02/07/18 Start Time 00:31 Discontinued Medications Metronidazole (Flagyl) 500 mg in 100 mls @ 100 mls/hr IVPB STAT STA PRN Reason: Protocol Stop: 02/06/18 23:20 Last Admin: 02/06/18 22:47 Dose: 100 mls/hr eMAR Start Stop Document 02/06/18 22:47 HI (Rec: 02/06/18 22:48 HI [id number]) Intravenous Solution Start Date 02/06/18 Start Time 22:48 Vancomycin HCl (Vancomycin 1gm) 1 gm in 250 mls @ 167 mls/hr IVPB STAT STA PRN Reason: Protocol Stop: 02/06/18 23:49 Last Admin: 02/07/18 00:30 Dose: 167 mls/hr eMAR Start Stop Document 02/07/18 00:30 OCS (Rec: 02/07/18 00:31 OCS [id number]) Intravenous Solution Start Date 02/07/18 Start Time 00:31 End Date 02/07/18 End time 02:01 Total Infusion Time 90 - Scribe Statement The provider has reviewed the documentation as recorded by the Fernando Dominguez Provider Scribe Attestation: All medical record entries made by the Fernando were at my direction and personally dictated by me. I have reviewed the chart and agree that the record accurately reflects my personal performance of the history, physical exam, medical decision making, and the department course for this patient. I have also personally directed, reviewed, and agree with the discharge instructions and disposition. Disposition/Present on Arrival - Present on Arrival Any Indicators Present on Arrival: No History of DVT/PE: No History of Uncontrolled Diabetes: No Urinary Catheter: No History of Decub. Ulcer: No History Surgical Site Infection Following: None - Disposition Have Diagnosis and Disposition been Completed?: Yes Diagnosis: Malnutrition, Abdominal wall cellulitis Disposition: HOSPITALIZED Disposition Time: 20:00 Condition: FAIR
[2018-02-07] MEDS ORDERED: Sodium Chloride 0.9% 1,000 ML IV STA (00:04)
[2018-02-07 03:14] VITALS: BMI 24.4
--- NOTE | 2018-02-07 09:16 | CT ---
Date of service: 02/07/2018 PROCEDURE: CT HEAD WITHOUT CONTRAST. HISTORY: weakness COMPARISON: 12/04/2017 TECHNIQUE: Axial computed tomography images were obtained through the head/brain without intravenous contrast. Radiation dose: Total exam DLP = 918 mGy-cm. This CT exam was performed using one or more of the following dose reduction techniques: Automated exposure control, adjustment of the mA and/or kV according to patient size, and/or use of iterative reconstruction technique. FINDINGS: HEMORRHAGE: No intracranial hemorrhage. BRAIN: No mass effect or edema. Multiple areas of cystic encephalomalacia can be seen in the right frontal and right parietal lobes as well as left frontal lobe. There are no acute findings. VENTRICLES: Unremarkable. No hydrocephalus. CALVARIUM: Unremarkable. PARANASAL SINUSES: Unremarkable as visualized. No significant inflammatory changes. MASTOID AIR CELLS: Unremarkable as visualized. No inflammatory changes. OTHER FINDINGS: None. IMPRESSION: No acute intracranial findings
[2018-02-07 09:33] LABS: HDL CHOLESTEROL 31 mg/dL (29-60)
[2018-02-07 09:37] LABS: IRON 46 ug/dL (45-180)
[2018-02-07 09:44] LABS: LDL CHOLESTEROL 43 mg/dL (0-129)
[2018-02-07 09:47] LABS: % IRON SATURATION 20 % (20-55); TOTAL IRON BINDING CAPACITY 226 ug/dL (261-462)
[2018-02-07] MEDS: Magnesium Oxide 400 mg Tab UD PO SCH ×2 (10:07→17:44)
--- NOTE | 2018-02-07 10:45 | RAD ---
Date of service: 02/06/2018 PROCEDURE: CHEST RADIOGRAPH, 1 VIEW HISTORY: pain COMPARISON: 12/04/2017 FINDINGS: LUNGS: Clear. PLEURA: No pneumothorax or pleural fluid seen. CARDIOVASCULAR: Mild cardiomegaly. Single lead pacemaker OSSEOUS STRUCTURES: No significant abnormalities. VISUALIZED UPPER ABDOMEN: Normal. OTHER FINDINGS: None. IMPRESSION: No active disease.
[2018-02-07] MEDS: Sodium Chloride 0.9% 1,000 ML IV SCH (11:05)
--- NOTE | 2018-02-07 11:18 | CARD ---
APPROVED REPORT Date of service: 02/06/2018 EKG Measurement Heart [id number] 104P [id number] <Conclusion> Poor data quality, interpretation may be adversely affected Sinus tachycardia with short [place] Voltage criteria for left ventricular hypertrophy ST-T Changes. Abnormal ECG
--- NOTE | 2018-02-07 12:19 | RAD ---
Date of service: 02/07/2018 PROCEDURE: Left Wrist Radiographs. HISTORY: fall COMPARISON: None. FINDINGS: BONES: Normal. No fracture. JOINTS: Normal. No dislocation. SOFT TISSUES: Normal. OTHER FINDINGS: None. IMPRESSION: No acute findings
[2018-02-07] MEDS ORDERED: Barium Sulfate Susp 2.1% w/v, 2.0% w/w 450 mL Bottle PO ONE (13:25)
--- NOTE | 2018-02-07 13:29 | CP.PCM.CON ---
<Robert Mcpherson - Last Filed: 02/07/18 13:26> History of Present Illness - History of Present Illness History of Present Illness: Podiatry Consult Note for Dr. Herndon 72M with PMH A fib, hypertension, COPD, throat cancer, cirrhosis, Dementia and TIA seen at bedside for left heel ulceration and DTI. Patient is asleep during visit but easily arousable. Per nursing no recent N/V/F/C/CP/SOB/D Review of Systems - Review of Systems All systems: reviewed and no additional remarkable complaints except Review of Systems: as per HPI Past Patient History - Infectious Disease Hx of Infectious Diseases: None - Past Medical History & Family History Past Medical History?: Yes - Past Social History Smoking Status: Unknown If Ever Smoked - CARDIAC Hx Hypertension: Yes Hx Pacemaker: Yes - PULMONARY Hx Chronic Obstructive Pulmonary Disease (COPD): Yes - NEUROLOGICAL HX Cerebrovascular Accident: Yes (L sided weakness) - HEENT Hx HEENT Problems: No - RENAL Hx Chronic Kidney Disease: No - ENDOCRINE/METABOLIC Hx Endocrine Disorders: No - HEMATOLOGICAL/ONCOLOGICAL Hx Blood Disorders: Yes Hx Anemia: Yes Hx Cancer: Yes (throat) - INTEGUMENTARY Other/Comment: multiple ble skin discolorations - MUSCULOSKELETAL/RHEUMATOLOGICAL Hx Falls: Yes - GASTROINTESTINAL Hx Gastrointestinal Disorders: Yes (L INGUINAL HERNIA) Hx Liver Failure: Yes (cirrhosis) - GENITOURINARY/GYNECOLOGICAL Hx Incontinence: Yes - PSYCHIATRIC Hx Psychophysiologic Disorder: Yes Hx Depression: Yes - SURGICAL HISTORY Hx Surgeries: Yes - ANESTHESIA Hx Anesthesia Reactions: No Hx Malignant Hyperthermia: No Meds Allergies/Adverse Reactions: Allergies Allergy/AdvReac Type Severity Reaction Status Date / Time No Known Allergies Allergy Verified 02/06/18 22:49 - Medications Medications: Current Medications Acetaminophen (Tylenol 325mg Tab) 650 mg PO Q4H PRN PRN Reason: Pain, Mild (1-3) Apixaban (Eliquis) 5 mg PO BID [facility] PRN Reason: Protocol Last Admin: 02/07/18 10:06 Dose: 5 mg Arformoterol Tartrate (Brovana) 15 mcg IH [id number] [facility] Budesonide (Pulmicort Respules) 0.5 mg IH [id number] [facility] Famotidine (Pepcid) 40 mg PO HS [facility] Sodium Chloride (Sodium Chloride 0.9%) 1,000 mls @ 80 mls/hr IV .[id number] [facility] Last Admin: 02/07/18 11:05 Dose: 80 mls/hr Levetiracetam (Keppra) 500 mg PO Q12 [facility] Last Admin: 02/07/18 11:06 Dose: 500 mg Magnesium Oxide (Mag-Ox) 400 mg PO BID [facility] Last Admin: 02/07/18 10:07 Dose: 400 mg Metoprolol Tartrate (Lopressor) 100 mg PO BID [facility] Last Admin: 02/07/18 11:07 Dose: 100 mg Physical Exam - Constitutional Appears: Well, Non-toxic, No Acute Distress - Extremities Exam Additional comments: LE focused exam: Vasc: DP/PT pulses fainly palpable 1/4 b/l. Skin temperature warm to warm from proximal to distal. CFT < 3 seconds to all digits b/l. No edema noted b/l Neuro: Epicritic and protective sensation grossly intact b/l Derm: Ulceration and DTI noted to left heel. No erythema, malodor, drainage, tracking, tunneling, undermining, probe to bone, or other clinical signs of infection noted MSK: Minimal tenderness on palpation to left heel. Rigid contractures of all digits 1-5 b/l. Otherwise, no gross deformities noted. Unable to assess muscle strength secondary to patient mental status - Neurological Exam Neurological exam: Alert, Altered - Psychiatric Exam Psychiatric exam: Normal Affect, Normal Mood Results - Vital Signs Recent Vital Signs: Last Vital Signs Temp 98.2 F 02/07/18 06:04 Pulse 101 H 02/07/18 11:07 Resp 18 02/07/18 06:04 BP 148/100 H 02/07/18 11:07 Pulse Ox 100 02/07/18 06:04 - Labs Result Diagrams: 02/06/18 21:20 02/06/18 21:45 Labs: Laboratory Results - last 24 hr 02/07/18 02/07/18 09:20 09:20 Iron 46 TIBC 226 L % Saturation 20 Triglycerides 67 Cholesterol 99 L LDL Cholesterol Direct 43 HDL Cholesterol 31 Assessment & Plan - Assessment and Plan (Free Text) Assessment: 72M with PMH A fib, hypertension, COPD, throat cancer, cirrhosis, Dementia and TIA seen at bedside for left heel ulceration and DTI Plan: Patient seen and evaluated with Dr. Herndon Afebrile, absent leukocytosis Wound appears clinically stable at this time Both heals dressed with Exuderm dressings Offloading boots applied to b/l heels No plan for surgical intervention at this time Podiatry will continue follow while patient in house - Date & Time Date: 02/07/18 Time: 13:35 <Mona Herndon - Last Filed: 02/18/18 18:57> Results - Vital Signs Recent Vital Signs: Last Vital Signs Temp 99 F 02/12/18 14:28 Pulse 105 H 02/12/18 17:23 Resp 20 02/12/18 14:28 BP 115/65 02/12/18 17:23 Pulse Ox 99 02/12/18 14:28 - Labs Result Diagrams: 02/12/18 06:15 02/12/18 06:15 Attending/Attestation - Attestation I have personally seen and examined this patient.: Yes I have fully participated in the care of the patient.: Yes I have reviewed all pertinent clinical information: Yes
--- NOTE | 2018-02-07 15:46 | CON ---
DATE: 02/07/2018 PULMONARY CONSULT REFERRING PHYSICIAN: Mariana Fernandez MD. REASON FOR CONSULT: Chronic lung disease. HISTORY OF PRESENT ILLNESS: This is a 72-year gentleman with past medical history significant for chronic obstructive lung disease; history of throat cancer, resected; also atrial fibrillation; hypertension; cirrhotic liver; dementia brought in because of poor appetite, not eating well, generalized weakness, confused, sleepy and presently lying in the bed, does not follow command. Getting IV fluids. Has some cough. No sputum production. No hemoptysis. No hematemesis. No hematuria. Has a lower extremity heel protector. PAST MEDICAL HISTORY: Chronic lung disease, history of throat cancer, oropharyngeal dysphagia, cirrhotic liver, dementia, TIA, hypertension, atrial fibrillation. FAMILY HISTORY: No significant cardiopulmonary disease reported. ALLERGIES: NONE KNOWN. MEDICATIONS: He is on Brovana inhaled twice a day, Eliquis 5 mg twice a day, Keppra 500 mg twice a day, metoprolol tartrate 100 mg twice a day, magnesium oxide 400 mg twice a day, Pepcid 40 mg daily, Pulmicort inhaled twice a day, IV fluid normal saline 80 mL/hour, Tylenol on p.r.n. basis. REVIEW OF SYSTEMS: Sleepy, tired. Mild cough. No sputum production. No vomiting, no hematuria, no diarrhea; leg swelling. Has pressure ulcers in the heel. PHYSICAL EXAMINATION: GENERAL: In no acute distress. VITAL SIGNS: Temperature 98, heart rate is 101, respiratory rate is 18, blood pressure 148/100, pulse ox 100% on nasal cannula. HEENT: Small oral cavity. Crowded airway. NECK: Supple. No JVD. LUNGS: Have a few scattered rhonchi. HEART: S1, S2. Irregular. ABDOMEN: Soft, nontender. No organomegaly. EXTREMITIES: Has pressure ulcers on the heels. NEUROLOGIC: Awake, alert, nonverbal, does not follow much commands. DATA: Laboratory data shows hemoglobin 12.1, hematocrit 37.5, WBC 6.9, platelet is 348. INR 1.20. PTT 27. Sodium 136, potassium 4.7, chloride 103, bicarbonate 30, BUN 23, creatinine 0.8, glucose 96, calcium 9.2. Iron is 46, total bili 0.4, AST 44, ALT 37, alkaline phosphatase is 68. Albumin is 3.4. Cholesterol is 99. B12 is pending. Folate is pending. CAT scan of the head done on admission shows no acute intracranial finding. Chest x-ray done in the ER shows no infiltrate or effusion. IMPRESSION AND PLAN: 1. Chronic obstructive lung disease. 2. History of head and neck cancer. 3. Oropharyngeal dysphagia, requiring gastrostomy tube. 4. Atrial fibrillation. 5. History of cerebrovascular accident. 6. Left hemiparesis. 7. Cirrhotic liver. 8. Hypertension. 9. Malnutrition. We will continue inhaled bronchodilator. Keep head at 45 degrees. We will get ABG to assess pCO2 and O2. Speech therapy evaluation. Continue gastric prophylaxis, anticoagulation. Follow up labs in the morning. Thank you and we will follow with you. Fatoumata Cruz MD
--- NOTE | 2018-02-07 16:07 | CP.PCM.CON ---
History of Present Illness - History of Present Illness History of Present Illness: Infectious Disease Consultation: February 07, 2018 72 yo male with PMHx of Hypertension, Atrial Fibrillation, COPD, cirrhosis, TIA , Dementia, left sided hemiparesis, and throat cancer. The patient presents with left heel ulcer, generalized weakness, fatigue, and poor appetite. Patient is a poor historian and has a known history of dementia. PMHx: Hypertension, Atrial Fibrillation, COPD, cirrhosis, TIA, Dementia, left sided hemiparesis, depression, multiple skin ulcers and lacerations, sick sinus syndrome, and throat cancer PSHx: PEG, Radical neck dissection, permanent pacemaker (VVI pacemaker on 08/03/2017) Allergies: NKDA Social hx: No tobacco, EtOH, or illicit drug use. Patient is an Ex-smoker Active Medications Acetaminophen (Tylenol 325mg Tab) 650 mg PO Q4H PRN PRN Reason: Pain, Mild (1-3) Apixaban (Eliquis) 5 mg PO BID [facility] PRN Reason: Protocol Last Admin: 02/07/18 10:06 Dose: 5 mg Arformoterol Tartrate (Brovana) 15 mcg IH [id number] [facility] Budesonide (Pulmicort Respules) 0.5 mg IH [id number] [facility] Famotidine (Pepcid) 40 mg PO HS [facility] Sodium Chloride (Sodium Chloride 0.9%) 1,000 mls @ 80 mls/hr IV .[id number] [facility] Last Admin: 02/07/18 11:05 Dose: 80 mls/hr Ampicillin Sodium/Sulbactam (Sodium 3 gm/ Sodium Chloride) 100 mls @ 100 mls/ hr IVPB Q8 [facility] PRN Reason: Protocol Last Admin: 02/07/18 15:10 Dose: 100 mls/hr Levetiracetam (Keppra) 500 mg PO Q12 [facility] Last Admin: 02/07/18 11:06 Dose: 500 mg Magnesium Oxide (Mag-Ox) 400 mg PO BID [facility] Last Admin: 02/07/18 10:07 Dose: 400 mg Metoprolol Tartrate (Lopressor) 100 mg PO BID [facility] Last Admin: 02/07/18 11:07 Dose: 100 mg Family Hx: none given ROS: Unable to obtain from the patient. Past Patient History - Infectious Disease Hx of Infectious Diseases: None - Past Medical History & Family History Past Medical History?: Yes - Past Social History Smoking Status: Unknown If Ever Smoked - CARDIAC Hx Hypertension: Yes Hx Pacemaker: Yes - PULMONARY Hx Chronic Obstructive Pulmonary Disease (COPD): Yes - NEUROLOGICAL HX Cerebrovascular Accident: Yes (L sided weakness) - HEENT Hx HEENT Problems: No - RENAL Hx Chronic Kidney Disease: No - ENDOCRINE/METABOLIC Hx Endocrine Disorders: No - HEMATOLOGICAL/ONCOLOGICAL Hx Blood Disorders: Yes Hx Anemia: Yes Hx Cancer: Yes (throat) - INTEGUMENTARY Other/Comment: multiple ble skin discolorations - MUSCULOSKELETAL/RHEUMATOLOGICAL Hx Falls: Yes - GASTROINTESTINAL Hx Gastrointestinal Disorders: Yes (L INGUINAL HERNIA) Hx Liver Failure: Yes (cirrhosis) - GENITOURINARY/GYNECOLOGICAL Hx Incontinence: Yes - PSYCHIATRIC Hx Psychophysiologic Disorder: Yes Hx Depression: Yes - SURGICAL HISTORY Hx Surgeries: Yes - ANESTHESIA Hx Anesthesia Reactions: No Hx Malignant Hyperthermia: No Meds Allergies/Adverse Reactions: Allergies Allergy/AdvReac Type Severity Reaction Status Date / Time No Known Allergies Allergy Verified 02/06/18 22:49 - Medications Medications: Current Medications Acetaminophen (Tylenol 325mg Tab) 650 mg PO Q4H PRN PRN Reason: Pain, Mild (1-3) Apixaban (Eliquis) 5 mg PO BID [facility] PRN Reason: Protocol Last Admin: 02/07/18 10:06 Dose: 5 mg Arformoterol Tartrate (Brovana) 15 mcg IH [id number] [facility] Budesonide (Pulmicort Respules) 0.5 mg IH [id number] [facility] Famotidine (Pepcid) 40 mg PO HS [facility] Sodium Chloride (Sodium Chloride 0.9%) 1,000 mls @ 80 mls/hr IV .[id number] [facility] Last Admin: 02/07/18 11:05 Dose: 80 mls/hr Ampicillin Sodium/Sulbactam (Sodium 3 gm/ Sodium Chloride) 100 mls @ 100 mls/ hr IVPB Q8 [facility] PRN Reason: Protocol Last Admin: 02/07/18 15:10 Dose: 100 mls/hr Levetiracetam (Keppra) 500 mg PO Q12 [facility] Last Admin: 02/07/18 11:06 Dose: 500 mg Magnesium Oxide (Mag-Ox) 400 mg PO BID [facility] Last Admin: 02/07/18 10:07 Dose: 400 mg Metoprolol Tartrate (Lopressor) 100 mg PO BID [facility] Last Admin: 02/07/18 11:07 Dose: 100 mg Physical Exam - Constitutional Appears: Non-toxic, No Acute Distress, Chronically Ill - Head Exam Head Exam: ATRAUMATIC, NORMOCEPHALIC - Eye Exam Eye Exam: EOMI, PERRL Pupil Exam: NORMAL ACCOMODATION, PERRL - ENT Exam ENT Exam: Mucous Membranes Moist, Normal External Ear Exam, TM's Normal Bilaterally - Neck Exam Neck exam: Positive for: Full Rom, Normal Inspection - Respiratory Exam Respiratory Exam: Clear to Auscultation Bilateral, NORMAL BREATHING PATTERN. absent: Rales, Rhonchi, Wheezes - Cardiovascular Exam Cardiovascular Exam: REGULAR RHYTHM, RRR, +S1, +S2 - GI/Abdominal Exam GI & Abdominal Exam: Normal Bowel Sounds, Soft. absent: Distended, Tenderness - Extremities Exam Additional comments: Ulceration and DTI noted to left heel. No erythema, malodor, drainage, tracking , tunneling, undermining, probe to bone, or other clinical signs of infection noted. Weak distal pulses. Debridement by Dr. Herndon at bedside this morning... at worse Stage II ulcer. Results - Vital Signs Recent Vital Signs: Last Vital Signs Temp 98.2 F 02/07/18 06:04 Pulse 101 H 02/07/18 11:07 Resp 18 02/07/18 06:04 BP 148/100 H 02/07/18 11:07 Pulse Ox 100 02/07/18 06:04 - Labs Result Diagrams: 02/06/18 21:20 02/06/18 21:45 Labs: Laboratory Results - last 24 hr 02/07/18 02/07/18 09:20 09:20 Iron 46 TIBC 226 L % Saturation 20 Triglycerides 67 Cholesterol 99 L LDL Cholesterol Direct 43 HDL Cholesterol 31 Assessment & Plan - Assessment and Plan (Free Text) Assessment: 72 yo male with left heel ulceration and an extensive medical history. No erythema or drainage. No leukocytosis. Spoke with Dr. Herndon. Currently on Unasyn for antibiotic coverage. Given physical appearance of the heel and the lack of fevers or leukocytosis, will maintain on Unasyn alone. No need at this time to add Vancomycin IV. Local wound care as per podiatry. Thank you for allowing me to participate in the care of the patient, we will follow with you.
--- NOTE | 2018-02-07 16:26 | US ---
PROCEDURE: Left upper extremity venous ultrasound HISTORY: Arm pain and swelling. Evaluate for deep venous thrombosis. PHYSICIAN(S): Taye Meraz MD. FINDINGS: The patient is in a position unable to cooperate. The left internal jugular vein is not visualized and presumed occluded. The visualized segments of the left subclavian vein are patent. The left axillary vein is patent. The visualized segments of the proximal left upper extremity are patent. IMPRESSION: 1. Chronically occluded left internal jugular vein 2. No evidence of acute DVT. 3. Very limited ultrasound
[2018-02-07 16:28] LABS: ARTERIAL BLOOD GAS HCO3 23.1 mmol/L (21-28); ARTERIAL BLOOD GAS HEMOGLOBIN 10.7 g/dL (11.7-17.4); ARTERIAL BLOOD GAS O2 CAPACITY 14.7 mL/dl (16-24); ARTERIAL BLOOD GAS O2 CONTENT 14.5 ML/dl (15-23); ARTERIAL BLOOD GAS O2 SAT 98.7 % (95-98); ARTERIAL BLOOD GAS PCO2 34 mm/Hg (35-45); ARTERIAL BLOOD GAS PH 7.44 (7.35-7.45); ARTERIAL BLOOD GAS TCO2 24.1 mmol.L (22-28)
[2018-02-07 16:50] LABS: FOLATE > 20.0 ng/mL
--- NOTE | 2018-02-07 17:01 | CP.PCM.CON ---
Addendum entered by Charley Malik MD 02/08/18 23:43: Original Note: <Karli Edward - Last Filed: 02/07/18 17:00> History of Present Illness - History of Present Illness History of Present Illness: Seen and examined at bedside, chart reviewed. Request for consult is for evaluation g-tube/abdominal wall cellulitis. HPI: Mr. Baker is a 72 y.o male with a PMH of Throat cancer, Atrial fibrillation on Eliquis,COPD, Dementia, and /CVA w/ left sided weakness,TIA was taken to the ER by family for further evaluation of patient having generalized weakness and poor appetite. Patient is awake , alert and appear a the moment oriented. He answers question but is a poor historian. History obtained from medical chart and nursing staff. Patient has PEG tube and there is a concern for cellulitis of abdominal wall. The PEGD is reported to be used only when the patient is not taking proper nutrition, otherwise the patient consumes soft diet as per nursing staff. Patient denies N/V , abdominal pain, dysphagia, diarrhea or overt GI bleeding. He had EGD/PEG on 07/[address] Caldwell and found gastritis. PMH: as stated above PSH: egd/peg 07/2017 Allergies: MEDs: reviewed as per MAR Social Hx: Family HX: noncontributory at this time ROS: systems reviewed w/ positive findings, see hpi Past Patient History - Infectious Disease Hx of Infectious Diseases: None - Past Medical History & Family History Past Medical History?: Yes - Past Social History Smoking Status: Unknown If Ever Smoked - CARDIAC Hx Hypertension: Yes Hx Pacemaker: Yes - PULMONARY Hx Chronic Obstructive Pulmonary Disease (COPD): Yes - NEUROLOGICAL HX Cerebrovascular Accident: Yes (L sided weakness) - HEENT Hx HEENT Problems: No - RENAL Hx Chronic Kidney Disease: No - ENDOCRINE/METABOLIC Hx Endocrine Disorders: No - HEMATOLOGICAL/ONCOLOGICAL Hx Blood Disorders: Yes Hx Anemia: Yes Hx Cancer: Yes (throat) - INTEGUMENTARY Other/Comment: multiple ble skin discolorations - MUSCULOSKELETAL/RHEUMATOLOGICAL Hx Falls: Yes - GASTROINTESTINAL Hx Gastrointestinal Disorders: Yes (L INGUINAL HERNIA) Hx Liver Failure: Yes (cirrhosis) - GENITOURINARY/GYNECOLOGICAL Hx Incontinence: Yes - PSYCHIATRIC Hx Psychophysiologic Disorder: Yes Hx Depression: Yes - SURGICAL HISTORY Hx Surgeries: Yes - ANESTHESIA Hx Anesthesia Reactions: No Hx Malignant Hyperthermia: No Meds Allergies/Adverse Reactions: Allergies Allergy/AdvReac Type Severity Reaction Status Date / Time No Known Allergies Allergy Verified 02/06/18 22:49 - Medications Medications: Current Medications Acetaminophen (Tylenol 325mg Tab) 650 mg PO Q4H PRN PRN Reason: Pain, Mild (1-3) Apixaban (Eliquis) 5 mg PO BID [facility] PRN Reason: Protocol Last Admin: 02/07/18 10:06 Dose: 5 mg Arformoterol Tartrate (Brovana) 15 mcg IH [id number] [facility] Budesonide (Pulmicort Respules) 0.5 mg IH [id number] [facility] Famotidine (Pepcid) 40 mg PO HS [facility] Sodium Chloride (Sodium Chloride 0.9%) 1,000 mls @ 80 mls/hr IV .[id number] [facility] Last Admin: 02/07/18 11:05 Dose: 80 mls/hr Ampicillin Sodium/Sulbactam (Sodium 3 gm/ Sodium Chloride) 100 mls @ 100 mls/hr IVPB Q8 [facility] PRN Reason: Protocol Last Admin: 02/07/18 15:10 Dose: 100 mls/hr Levetiracetam (Keppra) 500 mg PO Q12 [facility] Last Admin: 02/07/18 11:06 Dose: 500 mg Magnesium Oxide (Mag-Ox) 400 mg PO BID [facility] Last Admin: 02/07/18 10:07 Dose: 400 mg Metoprolol Tartrate (Lopressor) 100 mg PO BID [facility] Last Admin: 02/07/18 11:07 Dose: 100 mg Physical Exam - Constitutional Appears: No Acute Distress - Head Exam Head Exam: NORMOCEPHALIC - Eye Exam Eye Exam: Normal appearance. absent: Scleral icterus - ENT Exam ENT Exam: Mucous Membranes Moist - Neck Exam Neck exam: Positive for: Normal Inspection - Respiratory Exam Respiratory Exam: NORMAL BREATHING PATTERN. absent: Respiratory Distress - Cardiovascular Exam Cardiovascular Exam: +S1, +S2 - GI/Abdominal Exam GI & Abdominal Exam: Normal Bowel Sounds, Soft. absent: Guarding, Rebound, Tenderness Additional comments: (+) PEG, no drainage noted at this time, PEG tube has secretion that appear red, PEG tube flushed and aspirated, appear pink tinge, medication., nontender, although near insertion site of PEG at 11-12 oclock felt raised on palpation, no erythema. - Extremities Exam Extremities exam: Positive for: pedal pulses present. Negative for: calf tenderness Additional comments: left arm contracted - Neurological Exam Neurological exam: Alert - Skin Skin Exam: Dry, Warm Results - Vital Signs Recent Vital Signs: Last Vital Signs Temp 98.2 F 02/07/18 06:04 Pulse 101 H 02/07/18 11:07 Resp 18 02/07/18 06:04 BP 148/100 H 02/07/18 11:07 Pulse Ox 100 02/07/18 06:04 - Labs Result Diagrams: 02/06/18 21:20 02/06/18 21:45 Labs: Laboratory Results - last 24 hr 02/07/18 02/07/18 02/07/18 09:20 09:20 09:20 pCO2 pO2 HCO3 ABG pH ABG Total CO2 ABG O2 Saturation ABG O2 Content ABG Base Excess ABG Hemoglobin ABG Carboxyhemoglobin POC ABG HHb (Measured) ABG Methemoglobin ABG O2 Capacity Hgb O2 Saturation FiO2 Hemoglobin A1c 5.3 Iron 46 TIBC 226 L % Saturation 20 Triglycerides 67 Cholesterol 99 L LDL Cholesterol Direct 43 HDL Cholesterol 31 02/07/18 16:25 pCO2 34 L pO2 81.0 HCO3 23.1 ABG pH 7.44 ABG Total CO2 24.1 ABG O2 Saturation 98.7 H ABG O2 Content 14.5 L ABG Base Excess -0.7 ABG Hemoglobin 10.7 L ABG Carboxyhemoglobin 2.1 H POC ABG HHb (Measured) 1.3 ABG Methemoglobin 0.8 ABG O2 Capacity 14.7 L Hgb O2 Saturation 95.7 FiO2 21.0 Hemoglobin A1c Iron TIBC % Saturation Triglycerides Cholesterol LDL Cholesterol Direct HDL Cholesterol Assessment & Plan - Assessment and Plan (Free Text) Assessment: ASSESSMENT: Abdominal wall cellulites Throat cancer S/P PEG (07/2017) Atrial fibrillation on Eliquis COPD Dementia CVA, left side weak PLAN: request for ct scan with only oral contrast via PEG continue Pepcid s/p swallow evaluation. on puree diet IV antibiotics continue IVF on Eliquis Thank you for this consult and for allowing us to participate in your patient care, further recommendation based upon clinical course. Seen and discussed w/ Dr. Malik. <Charley Malik V - Last Filed: 02/08/18 23:38> Meds - Medications Medications: Current Medications Acetaminophen (Tylenol 325mg Tab) 650 mg PO Q4H PRN PRN Reason: Pain, Mild (1-3) Apixaban (Eliquis) 5 mg PO BID [facility] PRN Reason: Protocol Last Admin: 02/08/18 17:57 Dose: 5 mg Arformoterol Tartrate (Brovana) 15 mcg IH [id number] [facility] Last Admin: 02/08/18 07:15 Dose: 15 mcg Budesonide (Pulmicort Respules) 0.5 mg IH [id number] [facility] Last Admin: 02/08/18 07:15 Dose: 0.5 mg Famotidine (Pepcid) 40 mg PO HS [facility] Last Admin: 02/08/18 22:14 Dose: 40 mg Sodium Chloride (Sodium Chloride 0.9%) 1,000 mls @ 80 mls/hr IV .[id number] [facility] Last Admin: 02/08/18 01:00 Dose: 80 mls/hr Ampicillin Sodium/Sulbactam (Sodium 3 gm/ Sodium Chloride) 100 mls @ 100 mls/hr IVPB Q8 [facility] PRN Reason: Protocol Last Admin: 02/08/18 22:14 Dose: 100 mls/hr Levetiracetam (Keppra) 500 mg PO Q12 [facility] Last Admin: 02/08/18 22:14 Dose: 500 mg Magnesium Oxide (Mag-Ox) 400 mg PO BID [facility] Last Admin: 02/08/18 17:58 Dose: 400 mg Metoprolol Tartrate (Lopressor) 100 mg PO BID [facility] Last Admin: 02/08/18 17:57 Dose: 100 mg Polyethylene Glycol (Miralax) 17 gm PO QID [facility] Last Admin: 02/08/18 22:14 Dose: 17 gm Results - Vital Signs Recent Vital Signs: Last Vital Signs Temp 98.2 F 02/08/18 23:18 Pulse 107 H 02/08/18 23:18 Resp 20 02/08/18 23:18 BP 116/76 02/08/18 23:18 Pulse Ox 98 02/08/18 23:18 - Labs Result Diagrams: 02/08/18 06:15 02/08/18 06:15 Labs: Laboratory Results - last 24 hr 02/08/18 02/08/18 02/08/18 06:15 06:15 06:15 WBC 6.9 RBC 4.17 Hgb 10.7 L Hct 33.5 L MCV 80.3 MCH 25.7 MCHC 31.9 RDW 15.3 H Plt Count 310 MPV 8.4 Sodium 136 Potassium 4.1 Chloride 106 Carbon Dioxide 23 Anion Gap 11 BUN 14 Creatinine 0.7 L Est GFR ( Amer) > 60 Est GFR (Non-Af Amer) > 60 Random Glucose 80 Calcium 8.4 TSH 3rd Generation 2.95 Attending/Attestation - Attestation I have personally seen and examined this patient.: Yes I have fully participated in the care of the patient.: Yes I have reviewed all pertinent clinical information: Yes Notes (Text): This is an addendum to GI cconsult report dictated by Karli Edward APN.The patient was seen and examined earlier. Medical records, lab studies, imagings were reviewed. Last 24 hours events reviewed. Agreed with the above treatment plan as outlined in Karli Edward APN's notes with the addition of the following This patient tolerates PO as per family rarely uses PEG tube CT requested to locate the PEG tube location and to rule out abdominal wall infection ordered 02/08/18 23:36
[2018-02-07] MEDS ORDERED: POLYETHYLENE GLYCOL 3350 17 GM/Dose PACKET PO ONE (21:18)
[2018-02-07] MEDS: Budesonide 0.5 mg/2 ml Inhal Susp UD IH SCH (21:30)
[2018-02-07] MEDS: Arformoterol 15 mcg/2 ml Inh Sol IH SCH (21:30)
[2018-02-08] MEDS: Sodium Chloride 0.9% 1,000 ML IV SCH (01:00)
--- NOTE | 2018-02-08 01:42 | PN ---
DATE: 02/07/2018 The patient is a 72-year-old male. SUBJECTIVE: The patient was seen and examined on the bedside on 02/07/2018, looking comfortable. Left upper extremity swollen. No fever, no chills. Looks tired. Mild cough. No sputum production. No vomiting. No hematuria. No diarrhea. No swelling of the leg. Has pressure ulcer on the heel. PHYSICAL EXAMINATION VITAL SIGNS: Temperature 98, heart rate 101, respiratory rate 18, HEENT: Head is normocephalic and atraumatic. Eyes; PERRLA. Extraocular muscles are intact. Conjunctivae are clear. Nose is patent. Mucous membranes are moist. NECK: Supple. No carotid bruit. No JVD or thyromegaly. CHEST: Bilaterally symmetrical. HEART: S1 and S2 positive. LUNGS: Clear to auscultation. ABDOMEN: Soft. Bowel sounds are positive. No organomegaly. EXTREMITIES: No edema. No cyanosis. NEUROLOGICAL: The patient is awake and alert. Moving all four extremities. No focal deficit. LABORATORY DATA: Hemoglobin 12.1, hematocrit 37.5, white blood cells 6.9, and platelets 348. Sodium 136, potassium 4.7. AST 44, ALT 37. CAT scan of the head, on admission, showed no acute intracranial finding. ASSESSMENT AND PLAN: Mr. Geo Ewing has chronic obstructive lung disease; history of head and neck cancer; oropharyngeal dysphagia, requiring gastrostomy tube in the past; today the patient passed the swallowing evaluation and restarted for feeding; atrial fibrillation; he had history of cerebrovascular accident; left hemiparesis; cirrhosis of the liver; hypertension; malnutrition. PEG tube looks like infected. Inhaled bronchodilators. Speech Therapy evaluation. Gastrointestinal and deep venous thrombosis prophylaxes. Appreciated Dr. Cruz's, Dr. Ferrara's, and Karli Edward' input. CAT scan of abdomen and pelvis done. Upper extremity ultrasound done. Has abdominal wall cellulitis. Getting antibiotics. Atrial fibrillation, on Eliquis. Dementia. Continue Pepcid. We will follow up. Mariana Fernandez MD JAMES
[2018-02-08 06:47] LABS: HEMOGLOBIN 10.7 g/dL (14.0-18.0); MEAN CELL VOLUME 80.3 fl (80.0-105.0); MEAN CORPUSCULAR HEMOGLOBIN 25.7 pg (25.0-35.0); MEAN CORPUSCULAR HGB CONC 31.9 g/dl (31.0-37.0); MEAN PLATELET VOLUME 8.4 fl (7.0-11.0); RBC 4.17 10^6/uL (3.5-6.1); RED CELL DISTRIBUTION WIDTH 15.3 % (11.5-14.5); WHITE BLOOD COUNT 6.9 10^3/ul (4.5-11.0)
[2018-02-08] MEDS: Budesonide 0.5 mg/2 ml Inhal Susp UD IH SCH ×2 (07:15→23:48)
[2018-02-08] MEDS: Arformoterol 15 mcg/2 ml Inh Sol IH SCH ×2 (07:15→23:48)
[2018-02-08 07:16] LABS: BLOOD UREA NITROGEN 14 mg/dL (7-21); CALCIUM 8.4 mg/dL (8.4-10.5); GFR NON-AFRICAN AMERICAN > 60
--- NOTE | 2018-02-08 09:38 | CT ---
Date of service: 02/07/2018 PROCEDURE: CT Abdomen and Pelvis with contrast HISTORY: drain from PEG COMPARISON: None. TECHNIQUE: Helical CT of the abdomen and pelvis was performed following oral contrast administration. Intravenous contrast was not administered as per referring physician request. Coronal and sagittal reformats were generated. Contrast dose: None Radiation dose: Total exam DLP = 292.89 mGy-cm. This CT exam was performed using one or more of the following dose reduction techniques: Automated exposure control, adjustment of the mA and/or kV according to patient size, and/or use of iterative reconstruction technique. FINDINGS: LOWER THORAX: Trace right pleural effusion identified. Limited bilateral basilar atelectasis. Cardiomegaly. Pacemaker lead identified in the right heart. LIVER: Unremarkable. No gross lesion or ductal dilatation. GALLBLADDER AND BILE DUCTS: Unremarkable. PANCREAS: Unremarkable. No gross lesion or ductal dilatation. SPLEEN: Unremarkable. ADRENALS: Right adrenal gland appears unremarkable left renal gland may be hyperplastic. Artifacts obscure its evaluation somewhat. KIDNEYS AND URETERS: Unremarkable. No hydronephrosis. No solid mass. VASCULATURE: Unremarkable. No aortic aneurysm. BOWEL: Gastrostomy tube is identified within the antrum lumen. No extravasation of oral contrast material appreciated. No fluid collections appreciated in the anterior abdominal wall including the level of the gastrostomy. Stomach is mildly distend with retained oral contrast and air. No bowel obstruction appreciable. Small bowel is unremarkable. Prominent retained fecal material scattered throughout the large bowel with borderline rectal fecal impaction developing. APPENDIX: None identified. No CT evidence to suggest appendicitis. PERITONEUM: Unremarkable. No free fluid. No free air. LYMPH NODES: Unremarkable. No enlarged lymph nodes. BLADDER: Unremarkable. REPRODUCTIVE: Mild prostate gland enlargement. BONES: Multiple anterior wedge compression fracture of indeterminate age including T9, T12, L1, L2 and L4. OTHER FINDINGS: None. IMPRESSION: 1. Left upper quadrant gastrostomy placement appears unremarkable with no extravasation of oral contrast material or local fluid collection appreciated, including the anterior abdominal wall. 2. Moderate constipation suspected with borderline rectal fecal impaction. No bowel obstruction, perienteric or pericolic reactive change. 3. Mild prostate gland enlargement. 4. Incidental multilevel thoracolumbar compression fractures of indeterminate age.
[2018-02-08] MEDS: Magnesium Oxide 400 mg Tab UD PO SCH ×2 (09:49→17:58)
[2018-02-08] MEDS: POLYETHYLENE GLYCOL 3350 17 GM/Dose PACKET PO SCH ×4 (09:49→22:14)
--- NOTE | 2018-02-08 12:36 | CP.PCM.PN ---
<Eddie Rothman - Last Filed: 02/08/18 12:32> Subjective - Date & Time of Evaluation Date of Evaluation: 02/08/18 Time of Evaluation: 12:32 - Subjective Subjective: GI Progress Note for Dr. Malik's Service- Good, PGY2 Patient seen and assessed at bedside. No acute events noted overnight. He has been tolerating his diet well according to nursing reports. Patient denies any BM since admission at this time. Patient denies any fevers, chills, chest pain, SOB, abdominal pain, N/V/D, hematochezia, melena, changes in urine output or any skin changes. Objective - Vital Signs/Intake and Output Vital Signs (last 24 hours): Temp Pulse Resp BP Pulse Ox 97.4 F L 100 H 18 130/82 100 02/08/18 06:00 02/08/18 09:47 02/08/18 06:00 02/08/18 09:47 02/08/18 06:00 Intake and Output: 02/08/18 02/08/18 06:59 18:59 Intake Total 2039 Balance 2039 - Medications Medications: Current Medications Acetaminophen (Tylenol 325mg Tab) 650 mg PO Q4H PRN PRN Reason: Pain, Mild (1-3) Apixaban (Eliquis) 5 mg PO BID HEIDE PRN Reason: Protocol Last Admin: 02/08/18 09:47 Dose: 5 mg Arformoterol Tartrate (Brovana) 15 mcg IH [id number] [facility] Last Admin: 02/08/18 07:15 Dose: 15 mcg Budesonide (Pulmicort Respules) 0.5 mg IH [id number] [facility] Last Admin: 02/08/18 07:15 Dose: 0.5 mg Famotidine (Pepcid) 40 mg PO HS [facility] Last Admin: 02/07/18 21:59 Dose: 40 mg Sodium Chloride (Sodium Chloride 0.9%) 1,000 mls @ 80 mls/hr IV .[id number] [facility] Last Admin: 02/08/18 01:00 Dose: 80 mls/hr Ampicillin Sodium/Sulbactam (Sodium 3 gm/ Sodium Chloride) 100 mls @ 100 mls/ hr IVPB Q8 HEIDE PRN Reason: Protocol Last Admin: 09/13/18 05:30 Dose: 100 mls/hr Levetiracetam (Keppra) 500 mg PO Q12 [facility] Last Admin: 02/08/18 09:47 Dose: 500 mg Magnesium Oxide (Mag-Ox) 400 mg PO BID [facility] Last Admin: 02/08/18 09:49 Dose: 400 mg Metoprolol Tartrate (Lopressor) 100 mg PO BID [facility] Last Admin: 02/08/18 09:47 Dose: 100 mg Polyethylene Glycol (Miralax) 17 gm PO TID [facility] Last Admin: 02/08/18 09:49 Dose: 17 gm - Labs Labs: 02/08/18 06:15 02/08/18 06:15 PT 13.7 SECONDS (9.4-12.5) H 02/06/18 21:20 INR 1.20 02/06/18 21:20 APTT 26.6 Seconds (25.1-36.5) 02/06/18 21:20 - Constitutional Appears: Non-toxic, No Acute Distress - Head Exam Head Exam: ATRAUMATIC, NORMOCEPHALIC - Eye Exam Eye Exam: EOMI - ENT Exam ENT Exam: Mucous Membranes Moist - Neck Exam Neck Exam: Full ROM - Respiratory Exam Respiratory Exam: NORMAL BREATHING PATTERN. absent: Accessory Muscle Use, Respiratory Distress - Cardiovascular Exam Cardiovascular Exam: RRR, +S1, +S2 - GI/Abdominal Exam GI & Abdominal Exam: Soft, Normal Bowel Sounds. absent: Distended, Firm, Guarding, Rigid, Tenderness, Hernia, Mass Additional comments: PEG tube noted in LUQ with no drainage noted at this time; Surrounding non- tender without signs of clinical infection - Rectal Exam Rectal Exam: Deferred - Extremities Exam Extremities Exam: absent: Calf Tenderness Additional comments: LUE edematous distally extending proximally from the hand to the distal forearm ; No erythema or discharge noted; Multiple healing lacerations on left hand - Neurological Exam Neurological Exam: Alert, Awake - Skin Skin Exam: Dry, Intact, Normal Color, Warm Assessment and Plan - Assessment and Plan (Free Text) Assessment: 72 year old male with a past medical history significant for prior CVA with residual left sided weakness, Atrial Fibrillation on Eliquis, COPD, dementia, unspecified throat cancer s/p PEG (07/2017) who presented to the GI service with presumed abdominal wall cellulitis. Plan: -CT Abdomen/Pelvis showed left upper quadrant gastrostomy placement appears unremarkable with no extravasation of oral contrast material or local fluid collection appreciated, including the anterior abdominal wall and moderate constipation with borderline rectal fecal impaction. No bowel obstruction, perienteric or pericolic reactive change were noted. -Continue Miralax -Continue IVF -Pureed Diet with Thin Liquids and Ensure Enlive supplementation BID -Continue Pepcid -Continue Unasyn, all ID recommendations appreciated Patient seen and case discussed with attending, Dr. Malik. <Charley Malik V - Last Filed: 02/08/18 23:40> Objective - Vital Signs/Intake and Output Vital Signs (last 24 hours): Temp Pulse Resp BP Pulse Ox 98.2 F 107 H 20 116/76 98 02/08/18 23:18 02/08/18 23:18 02/08/18 23:18 02/08/18 23:18 02/08/18 23:18 Intake and Output: 02/08/18 02/09/18 18:59 06:59 Intake Total 240 Balance 240 - Medications Medications: Current Medications Acetaminophen (Tylenol 325mg Tab) 650 mg PO Q4H PRN PRN Reason: Pain, Mild (1-3) Apixaban (Eliquis) 5 mg PO BID HEIDE PRN Reason: Protocol Last Admin: 02/08/18 17:57 Dose: 5 mg Arformoterol Tartrate (Brovana) 15 mcg IH [id number] [facility] Last Admin: 02/08/18 07:15 Dose: 15 mcg Budesonide (Pulmicort Respules) 0.5 mg IH [id number] [facility] Last Admin: 02/08/18 07:15 Dose: 0.5 mg Famotidine (Pepcid) 40 mg PO HS [facility] Last Admin: 02/08/18 22:14 Dose: 40 mg Sodium Chloride (Sodium Chloride 0.9%) 1,000 mls @ 80 mls/hr IV .[id number] [facility] Last Admin: 02/08/18 01:00 Dose: 80 mls/hr Ampicillin Sodium/Sulbactam (Sodium 3 gm/ Sodium Chloride) 100 mls @ 100 mls/ hr IVPB Q8 HEIDE PRN Reason: Protocol Last Admin: 02/08/18 22:14 Dose: 100 mls/hr Levetiracetam (Keppra) 500 mg PO Q12 [facility] Last Admin: 02/08/18 22:14 Dose: 500 mg Magnesium Oxide (Mag-Ox) 400 mg PO BID [facility] Last Admin: 02/08/18 17:58 Dose: 400 mg Metoprolol Tartrate (Lopressor) 100 mg PO BID [facility] Last Admin: 02/08/18 17:57 Dose: 100 mg Polyethylene Glycol (Miralax) 17 gm PO QID [facility] Last Admin: 02/08/18 22:14 Dose: 17 gm - Labs Labs: 02/08/18 06:15 02/08/18 06:15 PT 13.7 SECONDS (9.4-12.5) H 02/06/18 21:20 INR 1.20 02/06/18 21:20 APTT 26.6 Seconds (25.1-36.5) 02/06/18 21:20 Attending/Attestation - Attestation I have personally seen and examined this patient.: Yes I have fully participated in the care of the patient.: Yes I have reviewed all pertinent clinical information, including history, physical exam and plan: Yes Notes (Text): This is an addendum to GI followup report dictated by the [employer] Vice President. The patient was seen and evaluated earlier. Medical records, lab studies, imagings were reviewed. Last 24 hours events reviewed. Agreed with the above treatment plan as outlined in [employer] Vice President 's notes with the addition of the following CT scan was reviewed no significant inflammatory change noticed at abdominal wall Significant constipation large amount of stool in the colon Will start Miralax via G tube 02/08/18 23:39
--- NOTE | 2018-02-08 18:48 | CP.PCM.PN ---
Subjective - Date & Time of Evaluation Date of Evaluation: 02/08/18 Time of Evaluation: 18:00 - Subjective Subjective: Infectious Disease Follow Up: February 08, 2018 72 yo male with PMHx of Hypertension, Atrial Fibrillation, COPD, cirrhosis, TIA , Dementia, left sided hemiparesis, and throat cancer. The patient presents with left heel ulcer, generalized weakness, fatigue, and poor appetite. Patient is a poor historian and has a known history of dementia. Mild cellulitis at PEG site but overall PEG site appears well maintained. Patient appears fairly comfortable. Objective - Vital Signs/Intake and Output Vital Signs (last 24 hours): Temp Pulse Resp BP Pulse Ox 97.4 F L 100 H 18 117/80 99 02/08/18 14:00 02/08/18 17:57 02/08/18 14:00 02/08/18 17:57 02/08/18 14:00 Intake and Output: 02/08/18 02/08/18 06:59 18:59 Intake Total 2039 Balance 2040 - Medications Medications: Current Medications Acetaminophen (Tylenol 325mg Tab) 650 mg PO Q4H PRN PRN Reason: Pain, Mild (1-3) Apixaban (Eliquis) 5 mg PO BID HEIDE PRN Reason: Protocol Last Admin: 02/08/18 17:57 Dose: 5 mg Arformoterol Tartrate (Brovana) 15 mcg IH [id number] [facility] Last Admin: 02/08/18 07:15 Dose: 15 mcg Budesonide (Pulmicort Respules) 0.5 mg IH [id number] [facility] Last Admin: 02/08/18 07:15 Dose: 0.5 mg Famotidine (Pepcid) 40 mg PO HS [facility] Last Admin: 02/07/18 21:59 Dose: 40 mg Sodium Chloride (Sodium Chloride 0.9%) 1,000 mls @ 80 mls/hr IV .[id number] [facility] Last Admin: 02/08/18 01:00 Dose: 80 mls/hr Ampicillin Sodium/Sulbactam (Sodium 3 gm/ Sodium Chloride) 100 mls @ 100 mls/ hr IVPB Q8 HEIDE PRN Reason: Protocol Last Admin: 02/08/18 13:20 Dose: 100 mls/hr Levetiracetam (Keppra) 500 mg PO Q12 [facility] Last Admin: 02/08/18 09:47 Dose: 500 mg Magnesium Oxide (Mag-Ox) 400 mg PO BID [facility] Last Admin: 02/08/18 17:58 Dose: 400 mg Metoprolol Tartrate (Lopressor) 100 mg PO BID [facility] Last Admin: 02/08/18 17:57 Dose: 100 mg Polyethylene Glycol (Miralax) 17 gm PO TID [facility] Last Admin: 02/08/18 17:59 Dose: 17 gm - Labs Labs: 02/08/18 06:15 02/08/18 06:15 PT 13.7 SECONDS (9.4-12.5) H 02/06/18 21:20 INR 1.20 02/06/18 21:20 APTT 26.6 Seconds (25.1-36.5) 02/06/18 21:20 - Constitutional Appears: Non-toxic, No Acute Distress, Chronically Ill - Head Exam Head Exam: ATRAUMATIC, NORMOCEPHALIC - Eye Exam Eye Exam: EOMI, PERRL Pupil Exam: NORMAL ACCOMODATION, PERRL - ENT Exam ENT Exam: Mucous Membranes Moist, Normal External Ear Exam, TM's Normal Bilaterally - Neck Exam Neck Exam: Full ROM, Normal Inspection - Respiratory Exam Respiratory Exam: Clear to Ausculation Bilateral, NORMAL BREATHING PATTERN. absent: Rales, Rhonchi, Wheezes - Cardiovascular Exam Cardiovascular Exam: REGULAR RHYTHM, RRR, +S1, +S2 - GI/Abdominal Exam GI & Abdominal Exam: Soft, Normal Bowel Sounds. absent: Distended, Tenderness Additional comments: PEG in place... overall well maintained. - Extremities Exam Additional comments: Ulceration and DTI noted to left heel. No erythema, malodor, drainage, tracking , tunneling, undermining, probe to bone, or other clinical signs of infection noted. Weak distal pulses. Debridement by Dr. Herndon at bedside this morning... at worse Stage II ulcer. - Neurological Exam Neurological Exam: Alert, Awake, CN II-XII Intact - Psychiatric Exam Psychiatric exam: Normal Affect, Normal Mood - Skin Skin Exam: Intact, Normal Color Assessment and Plan - Assessment and Plan (Free Text) Assessment: 72 yo male with left heel ulceration and an extensive medical history. No erythema or drainage. No leukocytosis. Spoke with Dr. Herndon. Currently on Unasyn for antibiotic coverage. Given physical appearance of the heel and the lack of fevers or leukocytosis, will maintain on Unasyn alone. No need at this time to add Vancomycin IV. Local wound care as per podiatry. PEG site appears fairly clean. While in hospital, maintain on Unasyn. Thank you for allowing me to participate in the care of the patient, we will follow with you.
--- NOTE | 2018-02-08 22:46 | PN ---
DATE: 02/08/2018 PULMONARY PROGRESS NOTE REFERRING PHYSICIAN: Mariana Fernandez MD. SUBJECTIVE: He is lying in the bed, head at 45 degrees. Awake, alert. No cough. No sputum production. No chest pain. No abdominal pain. No dysuria. No leg pain or leg swelling. PHYSICAL EXAMINATION: GENERAL: In no acute distress. VITAL SIGNS: Temperature is 98, heart rate is 100, respiratory rate is 18, blood pressure 117/80, pulse ox 99% on room air. HEENT: Moist mucous membrane. Crowded airway. NECK: Supple. No JVD. LUNGS: Have a fair airflow with rhonchi. HEART: S1 and S2. ABDOMEN: Soft. G-tube area looks okay. EXTREMITIES: There is no edema. Has bilateral heel ulcers. NEUROLOGIC: Awake, alert, and follows simple command. MEDICATIONS: He is on Unasyn 3 g IV every 8 hours, Brovana inhaled twice a day, Eliquis 5 mg twice a day, Keppra 500 mg twice a day, metoprolol tartrate 100 mg twice a day, mag oxide 400 mg twice a day, MiraLax 17 g four times a day, Pepcid 40 mg at bedtime, Pulmicort inhaled twice a day, IV fluid normal saline 80 mL per hour, Tylenol p.r.n. LABORATORY DATA: Shows hemoglobin 10.7, hematocrit 33.5, WBC 6.9, platelet is 310. Sodium 136, potassium 4.1, chloride 106, bicarbonate 23, BUN 14, creatinine 0.7, glucose 80, calcium is 8.4. Microbiology, blood culture has been negative. IMPRESSION AND PLAN: Chronic obstructive lung disease, head and neck cancer, history of tumor resection in the past, oropharyngeal dysphagia, has a gastrostomy tube, atrial fibrillation, history of cerebrovascular accident, left hemiparesis, cirrhotic liver, hypertension, malnutrition, sepsis. We will continue antibiotics. Keep head elevated at 45 degrees. Gastric prophylaxis. Pressure ulcer precaution. Being followed by Infectious Diseases and GI. Thank you and we will follow with you. Fatoumata Cruz MD
--- NOTE | 2018-02-09 01:21 | PN ---
DATE: 02/08/2018 SUBJECTIVE: Patient is a 72-year-old male. Patient was seen and examined on the bedside on 02/08/2018, awake, alert, and looking comfortable. No fever. No chills. No nausea, vomiting, or diarrhea. No abdominal pain. No hematuria or hematochezia. No swelling of the legs. PHYSICAL EXAMINATION: VITAL SIGNS: Temperature 98, heart rate 102, respiratory rate 18, blood pressure 120/80, pulse oximetry 99% on room air. HEENT: Head: Normocephalic, atraumatic. Eyes: PERRLA. Extraocular muscles intact. Conjunctivae clear. Nose patent. Mucous membrane moist. NECK: Supple. No carotid bruit, JVD, or thyromegaly. LUNGS: Have fair airflow with few rhonchi. HEART: S1 and S2 positive. ABDOMEN: Soft. G-tube surrounding area looking better. EXTREMITIES: No edema. No cyanosis except for bilateral heel have ulcers. NEUROLOGIC: Awake, alert. Follows simple commands. MEDICATIONS: Unasyn, Brovana, Eliquis, Keppra, metoprolol, magnesium oxide, MiraLax, Pepcid, Pulmicort, Tylenol. LABORATORY DATA: Hemoglobin 10.7, hematocrit 33.5, white blood cells 9.7, platelets 310. Sodium 136, potassium 4.1, BUN 14, creatinine 0.7, glucose 80. Blood cultures are negative. ASSESSMENT AND PLAN: Mr. Geo Ewing is a 72-year-old male with chronic obstructive lung disease, head and neck cancer, history of dysphagia, has a gastrostomy tube, history of tumor resection in the past, atrial fibrillation, cerebrovascular accident, left hemiparesis, cirrhosis of the liver, hypertension, malnutrition, sepsis, anorexia, fatigue. Started patient on antibiotics. Continue antibiotics as per Infectious Disease. Gastric prophylaxis. Pressure ulcer precautions. Gastrointestinal and deep venous thrombosis prophylaxes. Repeat labs. We will follow up. Mariana Fernandez MD
[2018-02-09] MEDS: Sodium Chloride 0.9% 1,000 ML IV SCH (05:28)
[2018-02-09] MEDS: Budesonide 0.5 mg/2 ml Inhal Susp UD IH SCH ×2 (07:32→20:24)
[2018-02-09] MEDS: Arformoterol 15 mcg/2 ml Inh Sol IH SCH ×2 (07:33→20:24)
--- NOTE | 2018-02-09 09:36 | CP.PCM.PN ---
<Eddie Rothman - Last Filed: 02/09/18 15:58> Subjective - Date & Time of Evaluation Date of Evaluation: 02/09/18 Time of Evaluation: 09:34 - Subjective Subjective: GI Progress Note for Dr. Malik's Service- Good, PGY2 Patient seen and assessed at bedside. No acute events noted overnight. Patient had one large formed BM yesterday. Nursing staff report adequate use and function of PEG for medication administration. Patient denies any fevers, chills , chest pain, SOB, abdominal pain, N/V/D/C, hematochezia, melena, changes in urine output or any skin changes. Objective - Vital Signs/Intake and Output Vital Signs (last 24 hours): Temp Pulse Resp BP Pulse Ox 98.2 F 107 H 18 130/80 99 02/09/18 06:00 02/09/18 06:00 02/09/18 06:00 02/09/18 06:00 02/09/18 06:00 Intake and Output: 02/09/18 02/09/18 06:59 18:59 Intake Total 240 Balance 240 - Medications Medications: Current Medications Acetaminophen (Tylenol 325mg Tab) 650 mg PO Q4H PRN PRN Reason: Pain, Mild (1-3) Apixaban (Eliquis) 5 mg PO BID HEIDE PRN Reason: Protocol Last Admin: 02/08/18 17:57 Dose: 5 mg Arformoterol Tartrate (Brovana) 15 mcg IH [id number] [facility] Last Admin: 02/09/18 07:33 Dose: 15 mcg Budesonide (Pulmicort Respules) 0.5 mg IH [id number] [facility] Last Admin: 02/09/18 07:32 Dose: 0.5 mg Famotidine (Pepcid) 40 mg PO HS [facility] Last Admin: 02/08/18 22:14 Dose: 40 mg Sodium Chloride (Sodium Chloride 0.9%) 1,000 mls @ 80 mls/hr IV .[id number] [facility] Last Admin: 02/09/18 05:28 Dose: 80 mls/hr Ampicillin Sodium/Sulbactam (Sodium 3 gm/ Sodium Chloride) 100 mls @ 100 mls/ hr IVPB Q8 HEIDE PRN Reason: Protocol Last Admin: 02/09/18 05:28 Dose: 100 mls/hr Levetiracetam (Keppra) 500 mg PO Q12 [facility] Last Admin: 02/08/18 22:14 Dose: 500 mg Magnesium Oxide (Mag-Ox) 400 mg PO BID [facility] Last Admin: 02/08/18 17:58 Dose: 400 mg Metoprolol Tartrate (Lopressor) 100 mg PO BID [facility] Last Admin: 02/08/18 17:57 Dose: 100 mg Polyethylene Glycol (Miralax) 17 gm PO QID [facility] Last Admin: 02/08/18 22:14 Dose: 17 gm - Labs Labs: 02/08/18 06:15 02/08/18 06:15 PT 13.7 SECONDS (9.4-12.5) H 02/06/18 21:20 INR 1.20 02/06/18 21:20 APTT 26.6 Seconds (25.1-36.5) 02/06/18 21:20 - Constitutional Appears: Non-toxic, No Acute Distress - Head Exam Head Exam: ATRAUMATIC, NORMOCEPHALIC - Eye Exam Eye Exam: EOMI - ENT Exam ENT Exam: Mucous Membranes Moist - Neck Exam Neck Exam: Full ROM - Respiratory Exam Respiratory Exam: NORMAL BREATHING PATTERN. absent: Accessory Muscle Use, Respiratory Distress - Cardiovascular Exam Cardiovascular Exam: REGULAR RHYTHM, RRR, +S1, +S2 - GI/Abdominal Exam GI & Abdominal Exam: Soft, Normal Bowel Sounds. absent: Bruit, Distended, Firm , Guarding, Rigid, Tenderness, Diminished Bowel Sounds, Hernia, Hyperactive Bowel Sounds, Hypoactive Bowel Sounds, Organomegaly, Pulsatile Mass, Rebound, Mass Additional comments: PEG tube noted in LUQ; Surrounding non-tender without signs of clinical infection - Rectal Exam Rectal Exam: Deferred - Extremities Exam Additional comments: LUE edema noted to have interval improvement - Neurological Exam Neurological Exam: Alert, Awake - Psychiatric Exam Psychiatric exam: Normal Affect, Normal Mood - Skin Skin Exam: Dry, Intact, Normal Color, Warm Assessment and Plan - Assessment and Plan (Free Text) Assessment: 72 year old male with a past medical history significant for prior CVA with residual left sided weakness, Atrial Fibrillation on Eliquis, COPD, dementia, unspecified throat cancer s/p PEG (07/2017) who presented to the GI service with presumed abdominal wall cellulitis. Plan: -CT Abdomen/Pelvis showed left upper quadrant gastrostomy placement appears unremarkable with no extravasation of oral contrast material or local fluid collection appreciated, including the anterior abdominal wall and moderate constipation with borderline rectal fecal impaction. No bowel obstruction, perienteric or pericolic reactive change were noted. -Continue Miralax QID -Continue IVF -Pureed Diet with Thin Liquids and Ensure Enlive supplementation BID -Continue Pepcid -Continue Unasyn, all ID recommendations appreciated Patient seen and case discussed with attending, Dr. Malik. <Charley Malik V - Last Filed: 02/10/18 00:14> Objective - Vital Signs/Intake and Output Vital Signs (last 24 hours): Temp Pulse Resp BP Pulse Ox 98.1 F 108 H 18 124/87 10 L 02/09/18 23:15 02/09/18 23:15 02/09/18 23:15 02/09/18 23:15 02/09/18 23:15 - Medications Medications: Current Medications Acetaminophen (Tylenol 325mg Tab) 650 mg PO Q4H PRN PRN Reason: Pain, Mild (1-3) Apixaban (Eliquis) 5 mg PO BID [facility] PRN Reason: Protocol Last Admin: 02/09/18 18:21 Dose: 5 mg Arformoterol Tartrate (Brovana) 15 mcg IH [id number] [facility] Last Admin: 02/09/18 20:24 Dose: 15 mcg Budesonide (Pulmicort Respules) 0.5 mg IH [id number] [facility] Last Admin: 02/09/18 20:24 Dose: 0.5 mg Famotidine (Pepcid) 40 mg PO HS [facility] Last Admin: 02/09/18 21:33 Dose: 40 mg Sodium Chloride (Sodium Chloride 0.9%) 1,000 mls @ 80 mls/hr IV .[id number] [facility] Last Admin: 02/09/18 05:28 Dose: 80 mls/hr Ampicillin Sodium/Sulbactam (Sodium 3 gm/ Sodium Chloride) 100 mls @ 100 mls/ hr IVPB Q8 [facility] PRN Reason: Protocol Last Admin: 02/09/18 21:33 Dose: 100 mls/hr Levetiracetam (Keppra) 500 mg PO Q12 [facility] Last Admin: 02/09/18 21:33 Dose: 500 mg Magnesium Oxide (Mag-Ox) 400 mg PO BID [facility] Last Admin: 02/09/18 18:20 Dose: 400 mg Metoprolol Tartrate (Lopressor) 100 mg PO BID [facility] Last Admin: 02/09/18 18:21 Dose: 100 mg Polyethylene Glycol (Miralax) 17 gm PO QID [facility] Last Admin: 02/09/18 21:34 Dose: Not Given - Labs Labs: 02/08/18 06:15 02/08/18 06:15 PT 13.7 SECONDS (9.4-12.5) H 02/06/18 21:20 INR 1.20 02/06/18 21:20 APTT 26.6 Seconds (25.1-36.5) 02/06/18 21:20 Attending/Attestation - Attestation I have personally seen and examined this patient.: Yes I have fully participated in the care of the patient.: Yes I have reviewed all pertinent clinical information, including history, physical exam and plan: Yes Notes (Text): This is an addendum to GI followup report dictated by the Certified Home Health Aide. The patient was seen and evaluated earlier. Medical records, lab studies, imagings were reviewed. Last 24 hours events reviewed. Agreed with the above treatment plan as outlined in Certified Home Health Aide 's notes with the addition of the following Patient started moving bowls would start GOLYTELY 1/2 a gallon as patient has significant amount of retained chay in right colon 02/10/18 00:13
[2018-02-09] MEDS: Magnesium Oxide 400 mg Tab UD PO SCH ×2 (11:36→18:20)
[2018-02-09] MEDS: POLYETHYLENE GLYCOL 3350 17 GM/Dose PACKET PO SCH ×4 (11:37→21:34)
--- NOTE | 2018-02-09 14:41 | CP.PCM.PN ---
Subjective - Date & Time of Evaluation Date of Evaluation: 02/09/18 Time of Evaluation: 14:00 - Subjective Subjective: Infectious Disease Follow Up: February 09, 2018 72 yo male with PMHx of Hypertension, Atrial Fibrillation, COPD, cirrhosis, TIA , Dementia, left sided hemiparesis, and throat cancer. The patient presents with left heel ulcer, generalized weakness, fatigue, and poor appetite. Patient is a poor historian and has a known history of dementia. Mild cellulitis at PEG site but overall PEG site appears well maintained. Patient appears fairly comfortable. Patient is not making any complaints. Objective - Vital Signs/Intake and Output Vital Signs (last 24 hours): Temp Pulse Resp BP Pulse Ox 98.2 F 107 H 18 130/80 99 02/09/18 06:00 02/09/18 11:34 02/09/18 06:00 02/09/18 11:34 02/09/18 06:00 Intake and Output: 02/09/18 02/09/18 06:59 18:59 Intake Total 240 Balance 240 - Medications Medications: Current Medications Acetaminophen (Tylenol 325mg Tab) 650 mg PO Q4H PRN PRN Reason: Pain, Mild (1-3) Apixaban (Eliquis) 5 mg PO BID HEIDE PRN Reason: Protocol Last Admin: 02/09/18 11:36 Dose: 5 mg Arformoterol Tartrate (Brovana) 15 mcg IH [id number] [facility] Last Admin: 02/09/18 07:33 Dose: 15 mcg Budesonide (Pulmicort Respules) 0.5 mg IH [id number] [facility] Last Admin: 02/09/18 07:32 Dose: 0.5 mg Famotidine (Pepcid) 40 mg PO HS [facility] Last Admin: 02/08/18 22:14 Dose: 40 mg Sodium Chloride (Sodium Chloride 0.9%) 1,000 mls @ 80 mls/hr IV .[id number] [facility] Last Admin: 02/09/18 05:28 Dose: 80 mls/hr Ampicillin Sodium/Sulbactam (Sodium 3 gm/ Sodium Chloride) 100 mls @ 100 mls/ hr IVPB Q8 [facility]IDE PRN Reason: Protocol Last Admin: 02/09/18 14:21 Dose: 100 mls/hr Levetiracetam (Keppra) 500 mg PO Q12 [facility] Last Admin: 02/09/18 11:36 Dose: 500 mg Magnesium Oxide (Mag-Ox) 400 mg PO BID [facility] Last Admin: 02/09/18 11:36 Dose: 400 mg Metoprolol Tartrate (Lopressor) 100 mg PO BID [facility] Last Admin: 02/09/18 11:34 Dose: 100 mg Polyethylene Glycol (Miralax) 17 gm PO QID [facility] Last Admin: 02/09/18 11:37 Dose: 17 gm - Labs Labs: 02/08/18 06:15 02/08/18 06:15 PT 13.7 SECONDS (9.4-12.5) H 02/06/18 21:20 INR 1.20 02/06/18 21:20 APTT 26.6 Seconds (25.1-36.5) 02/06/18 21:20 - Constitutional Appears: Non-toxic, No Acute Distress, Chronically Ill - Head Exam Head Exam: ATRAUMATIC, NORMOCEPHALIC - Eye Exam Eye Exam: EOMI, PERRL Pupil Exam: NORMAL ACCOMODATION, PERRL - ENT Exam ENT Exam: Mucous Membranes Moist, Normal External Ear Exam, TM's Normal Bilaterally - Neck Exam Neck Exam: Full ROM, Normal Inspection - Respiratory Exam Respiratory Exam: Clear to Ausculation Bilateral, NORMAL BREATHING PATTERN. absent: Rales, Rhonchi, Wheezes - Cardiovascular Exam Cardiovascular Exam: REGULAR RHYTHM, RRR, +S1, +S2 - GI/Abdominal Exam GI & Abdominal Exam: Soft, Normal Bowel Sounds. absent: Distended, Tenderness Additional comments: PEG in place... overall well maintained. - Extremities Exam Additional comments: Ulceration and DTI noted to left heel. No erythema, malodor, drainage, tracking , tunneling, undermining, probe to bone, or other clinical signs of infection noted. Weak distal pulses. Debridement by Dr. Herndon at bedside this morning... at worse Stage II ulcer. - Neurological Exam Neurological Exam: Alert, Awake, CN II-XII Intact, Oriented x3 - Psychiatric Exam Psychiatric exam: Normal Affect, Normal Mood - Skin Skin Exam: Intact, Normal Color Assessment and Plan - Assessment and Plan (Free Text) Assessment: 72 yo male with left heel ulceration and an extensive medical history. No erythema or drainage. No leukocytosis. Spoke with Dr. Herndon. Currently on Unasyn for antibiotic coverage. Given physical appearance of the heel and the lack of fevers or leukocytosis, will maintain on Unasyn alone. No need at this time to add Vancomycin IV. Local wound care as per podiatry. PEG site appears fairly clean. While in hospital, maintain on Unasyn. CT scan suggested moderate fecal impaction. Thank you for allowing me to participate in the care of the patient, we will follow with you.
--- NOTE | 2018-02-09 22:11 | PN ---
DATE: 02/09/2018 PULMONARY PROGRESS NOTE REFERRING PHYSICIAN: Mariana Fernandez MD. SUBJECTIVE: The patient is lying in the bed, head at 45 degrees. Much more awake and alert. Feels okay. No chest pain. No nausea. No abdominal pain. No dysuria. Has a heel protector on the lower extremity. OBJECTIVE: GENERAL: In no acute distress. VITAL SIGNS: Temperature is 98, heart rate is 105, respiratory rate is 18, blood pressure 119/80, pulse ox 100% on room air. HEENT: Moist mucous membrane. No ulcer or thrush noted. NECK: Supple. No JVD. LUNGS: Have a fair airflow with rhonchi. HEART: S1 and S2. ABDOMEN: Soft, nontender, nondistended. G-tube area looks okay. EXTREMITIES: There is no edema. Has a heel protector on lower extremities. NEUROLOGICAL: Awake and alert. Does follow simple command. MEDICATIONS: He is on Unasyn 3 g IV every 8 hours, Brovana inhaled twice a day, Eliquis 5 mg twice a day, Keppra 500 mg twice a day, metoprolol tartrate 100 mg twice a day, mag oxide 400 mg twice a day, MiraLax 17 g four times a day, Pepcid is 40 mg daily, Pulmicort inhaled twice a day, IV fluid normal saline 80 mL/hour, Tylenol p.r.n. basis. LABORATORY DATA: Shows no new lab is available since yesterday. Microbiology: Blood culture has been negative. IMPRESSION AND PLAN: Chronic obstructive lung disease, history of head and neck cancer requiring surgery, oropharyngeal dysphagia, has a gastrostomy tube, atrial fibrillation, history of cerebrovascular accident, left hemiparesis, cirrhotic liver, hypertension, malnutrition. Pulmonary point of view, doing okay. Continue bronchodilator. Keep head at 45 degrees. Aspiration precaution. On antibiotics. Gastric prophylaxis. Anticoagulation. High risk for pressure ulcers. Thank you and we will follow with you. Fatoumata Cruz MD
[2018-02-10] MEDS: Sodium Chloride 0.9% 1,000 ML IV SCH ×2 (05:04→23:27)
[2018-02-10] MEDS: Arformoterol 15 mcg/2 ml Inh Sol IH SCH ×2 (07:20→20:20)
[2018-02-10] MEDS: Budesonide 0.5 mg/2 ml Inhal Susp UD IH SCH ×2 (07:20→20:20)
[2018-02-10] MEDS: POLYETHYLENE GLYCOL 3350 17 GM/Dose PACKET PO SCH ×4 (10:13→23:12)
[2018-02-10] MEDS: Magnesium Oxide 400 mg Tab UD PO SCH ×2 (10:13→17:18)
--- NOTE | 2018-02-10 11:26 | CP.PCM.PN ---
Subjective - Date & Time of Evaluation Date of Evaluation: 02/10/18 Time of Evaluation: 11:23 - Subjective Subjective: Podiatry Progress note for Dr. Montero 72M with seen and evaluated at bedside for left heel ulceration and DTI. Patient is awake, alert and oriented X 3, with a bedside aide present. Patient and aide deny any acute overnight events. Patient seen with Multipodus boots on bilateral lower extremities. Per nursing no recent N/V/F/C/CP/SOB/D Objective - Vital Signs/Intake and Output Vital Signs (last 24 hours): Temp Pulse Resp BP Pulse Ox 98.4 F 100 H 18 136/97 H 99 02/10/18 06:00 02/10/18 10:13 02/10/18 06:00 02/10/18 10:13 02/10/18 06:00 Intake and Output: 02/10/18 02/10/18 06:59 18:59 Intake Total 120 Balance 120 - Medications Medications: Current Medications Acetaminophen (Tylenol 325mg Tab) 650 mg PO Q4H PRN PRN Reason: Pain, Mild (1-3) Apixaban (Eliquis) 5 mg PO BID HEIDE PRN Reason: Protocol Last Admin: 02/10/18 10:14 Dose: 5 mg Arformoterol Tartrate (Brovana) 15 mcg IH [id number] [facility] Last Admin: 02/10/18 07:20 Dose: 15 mcg Budesonide (Pulmicort Respules) 0.5 mg IH [id number] [facility] Last Admin: 02/10/18 07:20 Dose: 0.5 mg Famotidine (Pepcid) 40 mg PO HS [facility] Last Admin: 02/09/18 21:33 Dose: 40 mg Sodium Chloride (Sodium Chloride 0.9%) 1,000 mls @ 80 mls/hr IV .[id number] [facility] Last Admin: 02/10/18 05:04 Dose: 80 mls/hr Ampicillin Sodium/Sulbactam (Sodium 3 gm/ Sodium Chloride) 100 mls @ 100 mls/hr IVPB Q8 [facility] PRN Reason: Protocol Last Admin: 02/10/18 05:08 Dose: 100 mls/hr Levetiracetam (Keppra) 500 mg PO Q12 [facility] Last Admin: 02/10/18 10:14 Dose: 500 mg Magnesium Oxide (Mag-Ox) 400 mg PO BID [facility] Last Admin: 02/10/18 10:13 Dose: 400 mg Metoprolol Tartrate (Lopressor) 100 mg PO BID [facility] Last Admin: 02/10/18 10:13 Dose: 100 mg Polyethylene Glycol (Miralax) 17 gm PO QID [facility] Last Admin: 02/10/18 10:13 Dose: 17 gm - Labs Labs: 02/08/18 06:15 02/08/18 06:15 PT 13.7 SECONDS (9.4-12.5) H 02/06/18 21:20 INR 1.20 02/06/18 21:20 APTT 26.6 Seconds (25.1-36.5) 02/06/18 21:20 - Constitutional Appears: Well, Non-toxic, No Acute Distress - Head Exam Head Exam: ATRAUMATIC, NORMOCEPHALIC - Extremities Exam Additional comments: LE focused exam: Vasc: DP/PT pulses fainly palpable 1/4 b/l. Skin temperature warm to warm from proximal to distal. CFT < 3 seconds to all digits b/l. No edema noted b/l Neuro: Epicritic and protective sensation grossly intact b/l Derm: Ulceration and DTI noted to left heel. No erythema, malodor, drainage, tracking, tunneling, undermining, probe to bone, or other clinical signs of infection noted MSK: Minimal tenderness on palpation to left heel. Rigid contractures of all digits 1-5 b/l. Otherwise, no gross deformities noted. Unable to assess muscle strength secondary to patient mental status - Neurological Exam Neurological Exam: Alert, Awake, Oriented x3 - Psychiatric Exam Psychiatric exam: Normal Affect, Normal Mood Assessment and Plan - Assessment and Plan (Free Text) Assessment: 72 y/o male seen and evaluated at bedside for left heel ulceration and DTI Plan: Patient seen and evaluated with Dr. Montero Afebrile, absent leukocytosis Wound appears clinically stable at this time Both heals dressed with Optifoam dressings Offloading boots applied to b/l heels No plan for surgical intervention at this time Podiatry will continue follow while patient in house
--- NOTE | 2018-02-10 13:20 | CP.PCM.PN ---
<Sebastian Helm - Last Filed: 02/10/18 13:15> Subjective - Date & Time of Evaluation Date of Evaluation: 02/10/18 Time of Evaluation: 13:15 - Subjective Subjective: GI Fellow PGY4, no acute overnight events. 2 BM today. No complaints. Nursing reports he is eating well when prompted. Objective - Vital Signs/Intake and Output Vital Signs (last 24 hours): Temp Pulse Resp BP Pulse Ox 98.4 F 100 H 18 136/97 H 99 02/10/18 06:00 02/10/18 10:13 02/10/18 06:00 02/10/18 10:13 02/10/18 06:00 Intake and Output: 02/10/18 02/10/18 06:59 18:59 Intake Total 120 Balance 120 - Medications Medications: Current Medications Acetaminophen (Tylenol 325mg Tab) 650 mg PO Q4H PRN PRN Reason: Pain, Mild (1-3) Apixaban (Eliquis) 5 mg PO BID HEIDE PRN Reason: Protocol Last Admin: 02/10/18 10:14 Dose: 5 mg Arformoterol Tartrate (Brovana) 15 mcg IH [id number] [facility] Last Admin: 02/10/18 07:20 Dose: 15 mcg Budesonide (Pulmicort Respules) 0.5 mg IH [id number] [facility] Last Admin: 02/10/18 07:20 Dose: 0.5 mg Famotidine (Pepcid) 40 mg PO HS [facility] Last Admin: 02/09/18 21:33 Dose: 40 mg Sodium Chloride (Sodium Chloride 0.9%) 1,000 mls @ 80 mls/hr IV .[id number] [facility] Last Admin: 02/10/18 05:04 Dose: 80 mls/hr Ampicillin Sodium/Sulbactam (Sodium 3 gm/ Sodium Chloride) 100 mls @ 100 mls/ hr IVPB Q8 [facility] PRN Reason: Protocol Last Admin: 02/10/18 05:08 Dose: 100 mls/hr Levetiracetam (Keppra) 500 mg PO Q12 [facility] Last Admin: 02/10/18 10:14 Dose: 500 mg Magnesium Oxide (Mag-Ox) 400 mg PO BID [facility] Last Admin: 02/10/18 10:13 Dose: 400 mg Metoprolol Tartrate (Lopressor) 100 mg PO BID [facility] Last Admin: 02/10/18 10:13 Dose: 100 mg Polyethylene Glycol (Miralax) 17 gm PO QID [facility] Last Admin: 02/10/18 10:13 Dose: 17 gm - Labs Labs: 02/08/18 06:15 02/08/18 06:15 PT 13.7 SECONDS (9.4-12.5) H 02/06/18 21:20 INR 1.20 02/06/18 21:20 APTT 26.6 Seconds (25.1-36.5) 02/06/18 21:20 - Constitutional Appears: No Acute Distress, Cachectic, Chronically Ill - Head Exam Head Exam: NORMAL INSPECTION - Eye Exam Eye Exam: Normal appearance - ENT Exam ENT Exam: Mucous Membranes Moist - Respiratory Exam Respiratory Exam: Clear to Ausculation Bilateral, NORMAL BREATHING PATTERN - Cardiovascular Exam Cardiovascular Exam: REGULAR RHYTHM - GI/Abdominal Exam GI & Abdominal Exam: Soft, Normal Bowel Sounds. absent: Tenderness Additional comments: PEG in place, functioning well. - Extremities Exam Extremities Exam: Normal Inspection - Neurological Exam Neurological Exam: Alert, Awake - Psychiatric Exam Psychiatric exam: Normal Affect, Normal Mood - Skin Skin Exam: Dry, Normal Color Assessment and Plan - Assessment and Plan (Free Text) Assessment: 72 year old male with a past medical history significant for prior CVA with residual left sided weakness, Atrial Fibrillation on Eliquis, COPD, dementia, unspecified throat cancer s/p PEG (07/2017) who presented to the GI service with presumed abdominal wall cellulitis. Plan: -CT Abdomen/Pelvis showed left upper quadrant gastrostomy placement appears unremarkable with no extravasation of oral contrast material or local fluid collection appreciated, including the anterior abdominal wall and moderate constipation with borderline rectal fecal impaction. No bowel obstruction, perienteric or pericolic reactive change were noted. -Continue Miralax QID -Continue IVF -Pureed Diet with Thin Liquids and Ensure Enlive supplementation BID -Continue Pepcid -Continue Unasyn, all ID recommendations appreciated <King,Kovil V - Last Filed: 02/10/18 21:20> Objective - Vital Signs/Intake and Output Vital Signs (last 24 hours): Temp Pulse Resp BP Pulse Ox 98.1 F 108 H 18 124/87 100 02/10/18 21:02 02/10/18 21:02 02/10/18 21:02 02/10/18 21:02 02/10/18 21:02 Intake and Output: 02/10/18 02/11/18 18:59 06:59 Intake Total 300 Balance 300 - Medications Medications: Current Medications Acetaminophen (Tylenol 325mg Tab) 650 mg PO Q4H PRN PRN Reason: Pain, Mild (1-3) Apixaban (Eliquis) 5 mg PO BID [facility] PRN Reason: Protocol Last Admin: 02/10/18 17:18 Dose: 5 mg Arformoterol Tartrate (Brovana) 15 mcg IH [id number] [facility] Last Admin: 02/10/18 20:20 Dose: 15 mcg Budesonide (Pulmicort Respules) 0.5 mg IH [id number] [facility] Last Admin: 02/10/18 20:20 Dose: 0.5 mg Famotidine (Pepcid) 40 mg PO HS [facility] Last Admin: 02/09/18 21:33 Dose: 40 mg Sodium Chloride (Sodium Chloride 0.9%) 1,000 mls @ 80 mls/hr IV .[id number] [facility] Last Admin: 02/10/18 05:04 Dose: 80 mls/hr Ampicillin Sodium/Sulbactam (Sodium 3 gm/ Sodium Chloride) 100 mls @ 100 mls/ hr IVPB Q8 [facility] PRN Reason: Protocol Last Admin: 02/10/18 15:03 Dose: 100 mls/hr Levetiracetam (Keppra) 500 mg PO Q12 [facility] Last Admin: 02/10/18 10:14 Dose: 500 mg Magnesium Oxide (Mag-Ox) 400 mg PO BID [facility] Last Admin: 02/10/18 17:18 Dose: 400 mg Metoprolol Tartrate (Lopressor) 100 mg PO BID [facility] Last Admin: 02/10/18 17:18 Dose: 100 mg Polyethylene Glycol (Miralax) 17 gm PO QID [facility] Last Admin: 02/10/18 17:30 Dose: Not Given - Labs Labs: 02/08/18 06:15 02/08/18 06:15 PT 13.7 SECONDS (9.4-12.5) H 02/06/18 21:20 INR 1.20 02/06/18 21:20 APTT 26.6 Seconds (25.1-36.5) 02/06/18 21:20 Attending/Attestation - Attestation I have personally seen and examined this patient.: Yes I have fully participated in the care of the patient.: Yes I have reviewed all pertinent clinical information, including history, physical exam and plan: Yes Notes (Text): This is an addendum to GI progress report dictated by the GI Fellow.The patient was seen and examined earlier. Medical records, lab studies, imagings were reviewed. Last 24 hours events reviewed. Agreed with the above treatment plan as outlined in GI Fellow 's notes with the addition of the following Patient had good bowl movements on Miralax PO intake remains low Discussed with nursing staff Will start GT feeding 02/10/18 21:19
--- NOTE | 2018-02-10 17:01 | CP.PCM.PN ---
Subjective - Date & Time of Evaluation Date of Evaluation: 02/10/18 Time of Evaluation: 16:00 - Subjective Subjective: Infectious Disease Follow Up: February 10, 2018 72 yo male with PMHx of Hypertension, Atrial Fibrillation, COPD, cirrhosis, TIA , Dementia, left sided hemiparesis, and throat cancer. The patient presents with left heel ulcer, generalized weakness, fatigue, and poor appetite. Patient is a poor historian and has a known history of dementia. Mild cellulitis at PEG site but overall PEG site appears well maintained. Patient appears fairly comfortable. Patient is not making any complaints. The patient appears to be eating well. Objective - Vital Signs/Intake and Output Vital Signs (last 24 hours): Temp Pulse Resp BP Pulse Ox 98.4 F 108 H 17 129/67 100 02/10/18 14:00 02/10/18 14:00 02/10/18 14:00 02/10/18 14:00 02/10/18 14:00 Intake and Output: 02/10/18 02/10/18 06:59 18:59 Intake Total 120 Balance 120 - Medications Medications: Current Medications Acetaminophen (Tylenol 325mg Tab) 650 mg PO Q4H PRN PRN Reason: Pain, Mild (1-3) Apixaban (Eliquis) 5 mg PO BID [facility] PRN Reason: Protocol Last Admin: 02/10/18 10:14 Dose: 5 mg Arformoterol Tartrate (Brovana) 15 mcg IH [id number] [facility] Last Admin: 02/10/18 07:20 Dose: 15 mcg Budesonide (Pulmicort Respules) 0.5 mg IH [id number] [facility] Last Admin: 02/10/18 07:20 Dose: 0.5 mg Famotidine (Pepcid) 40 mg PO HS [facility] Last Admin: 02/09/18 21:33 Dose: 40 mg Sodium Chloride (Sodium Chloride 0.9%) 1,000 mls @ 80 mls/hr IV .[id number] [facility] Last Admin: 02/10/18 05:04 Dose: 80 mls/hr Ampicillin Sodium/Sulbactam (Sodium 3 gm/ Sodium Chloride) 100 mls @ 100 mls/ hr IVPB Q8 [facility] PRN Reason: Protocol Last Admin: 02/10/18 15:03 Dose: 100 mls/hr Levetiracetam (Keppra) 500 mg PO Q12 [facility] Last Admin: 02/10/18 10:14 Dose: 500 mg Magnesium Oxide (Mag-Ox) 400 mg PO BID [facility] Last Admin: 02/10/18 10:13 Dose: 400 mg Metoprolol Tartrate (Lopressor) 100 mg PO BID [facility] Last Admin: 02/10/18 10:13 Dose: 100 mg Polyethylene Glycol (Miralax) 17 gm PO QID [facility] Last Admin: 02/10/18 10:13 Dose: 17 gm - Labs Labs: 02/08/18 06:15 02/08/18 06:15 PT 13.7 SECONDS (9.4-12.5) H 02/06/18 21:20 INR 1.20 02/06/18 21:20 APTT 26.6 Seconds (25.1-36.5) 02/06/18 21:20 - Constitutional Appears: Non-toxic, No Acute Distress, Chronically Ill - Head Exam Head Exam: ATRAUMATIC, NORMOCEPHALIC - Eye Exam Eye Exam: EOMI, PERRL Pupil Exam: NORMAL ACCOMODATION, PERRL - ENT Exam ENT Exam: Mucous Membranes Moist, Normal External Ear Exam, TM's Normal Bilaterally - Neck Exam Neck Exam: Full ROM, Normal Inspection - Respiratory Exam Respiratory Exam: Clear to Ausculation Bilateral, NORMAL BREATHING PATTERN. absent: Rales, Rhonchi, Wheezes - Cardiovascular Exam Cardiovascular Exam: REGULAR RHYTHM, RRR, +S1, +S2 - GI/Abdominal Exam GI & Abdominal Exam: Soft, Normal Bowel Sounds. absent: Distended, Tenderness Additional comments: PEG in place... overall appears well maintained. - Extremities Exam Additional comments: Ulceration and DTI noted to left heel. No erythema, malodor, drainage, tracking , tunneling, undermining, probe to bone, or other clinical signs of infection noted. Weak distal pulses. Debridement by Dr. Herndon at bedside during this hospitalization... at worse Stage II ulcer. - Neurological Exam Neurological Exam: Alert, Awake, CN II-XII Intact - Psychiatric Exam Psychiatric exam: Normal Affect, Normal Mood - Skin Skin Exam: Intact, Normal Color Assessment and Plan - Assessment and Plan (Free Text) Assessment: 72 yo male with left heel ulceration and an extensive medical history. No erythema or drainage. No leukocytosis. Spoke with Dr. Dworkin. Currently on Unasyn for antibiotic coverage. Given physical appearance of the heel and the lack of fevers or leukocytosis, will maintain on Unasyn alone. No need at this time to add Vancomycin IV. Local wound care as per podiatry. PEG site appears fairly clean. While in hospital, maintain on Unasyn. Can consider a switch to oral Keflex. CT scan suggested moderate fecal impaction. Thank you for allowing me to participate in the care of the patient, we will follow with you.
--- NOTE | 2018-02-10 18:56 | PN ---
DATE: 02/10/2018 PULMONARY PROGRESS NOTE REFERRING PHYSICIAN: Mariana Fernandez MD SUBJECTIVE: He is lying in the bed, sleepy, arousable. Follows simple commands, very poor appetite, not when he eats lunch, not much cough. No sputum production. No hemoptysis. No emesis. No hematuria. No diarrhea reported. Heels are protected with the heel protector. OBJECTIVE: GENERAL: In no acute distress. VITAL SIGNS: Temperature is 98, heart rate is 108, respiratory rate is 18, blood pressure 129/67, pulse ox 99% on room air. HEENT: Moist mucous membranes. Small oral cavity. NECK: Supple. No JVD. LUNGS: Have a fair airflow with rhonchi. HEART: S1 and S2. ABDOMEN: Soft, nontender, nondistended. G-tube area looks okay. EXTREMITIES: There is no edema. Has a heel ulcer with a heel protector. NEUROLOGICAL: Sleepy, arousable. Follows simple command, but confused. MEDICATIONS: He is on Unasyn 3 g IV every 8 hours, Brovana inhaled twice a day, Eliquis 5 mg twice a day, Keppra 500 mg twice a day, metoprolol tartrate 100 mg twice a day, magnesium oxide 400 mg twice a day, MiraLax 17 g q.i.d., Pepcid 40 mg at bedtime, Pulmicort inhaled twice a day, IV fluid normal saline 80 mL/hour, Tylenol p.r.n. basis. LABORATORY DATA: Reviewed and no new lab is available since yesterday. Microbiology: Blood culture has been negative. IMPRESSION AND PLAN: Chronic obstructive lung disease, history of head and neck cancer requiring surgery, oropharyngeal dysphagia, has a gastrostomy tube, atrial fibrillation, history of cerebrovascular accident, hemiparesis, cirrhotic liver, hypertension, malnutrition, heel ulcers. Pulmonary point of view, doing okay. Continue antibiotics. Keep head at 45 degrees. Bronchodilator, aspiration precaution. May benefit from dietitian consult. Pressure ulcer precaution. Thank you and we will follow with you. Fatoumata Cruz MD
[2018-02-11] MEDS: Arformoterol 15 mcg/2 ml Inh Sol IH SCH ×2 (07:18→20:25)
[2018-02-11] MEDS: Budesonide 0.5 mg/2 ml Inhal Susp UD IH SCH ×2 (07:18→20:25)
[2018-02-11] MEDS: Magnesium Oxide 400 mg Tab UD PO SCH ×2 (09:13→17:28)
[2018-02-11] MEDS: POLYETHYLENE GLYCOL 3350 17 GM/Dose PACKET PO SCH ×4 (09:14→21:41)
--- NOTE | 2018-02-11 12:08 | CP.PCM.PN ---
<Sebastian Helm - Last Filed: 02/11/18 12:06> Subjective - Date & Time of Evaluation Date of Evaluation: 02/11/18 Time of Evaluation: 12:06 - Subjective Subjective: GI Fellow PGY4, Sleeping. No complaints. PEG functioning well. started on tube feeds. Objective - Vital Signs/Intake and Output Vital Signs (last 24 hours): Temp Pulse Resp BP Pulse Ox 98.1 F 100 H 18 157/107 H 100 02/11/18 06:00 02/11/18 06:00 02/11/18 06:00 02/11/18 06:00 02/11/18 06:00 Intake and Output: 02/11/18 02/11/18 06:59 18:59 Intake Total 2220 Balance 2220 - Medications Medications: Current Medications Acetaminophen (Tylenol 325mg Tab) 650 mg PO Q4H PRN PRN Reason: Pain, Mild (1-3) Apixaban (Eliquis) 5 mg PO BID [facility] PRN Reason: Protocol Last Admin: 02/11/18 09:13 Dose: 5 mg Arformoterol Tartrate (Brovana) 15 mcg IH [id number] [facility] Last Admin: 02/11/18 07:18 Dose: 15 mcg Budesonide (Pulmicort Respules) 0.5 mg IH [id number] [facility] Last Admin: 02/11/18 07:18 Dose: 0.5 mg Famotidine (Pepcid) 40 mg PO HS [facility] Last Admin: 02/10/18 23:12 Dose: 40 mg Sodium Chloride (Sodium Chloride 0.9%) 1,000 mls @ 80 mls/hr IV .[id number] [facility] Last Admin: 02/10/18 23:27 Dose: 80 mls/hr Ampicillin Sodium/Sulbactam (Sodium 3 gm/ Sodium Chloride) 100 mls @ 100 mls/ hr IVPB Q8 [facility] PRN Reason: Protocol Last Admin: 02/11/18 05:28 Dose: 100 mls/hr Levetiracetam (Keppra) 500 mg PO Q12 [facility] Last Admin: 02/11/18 09:13 Dose: 500 mg Magnesium Oxide (Mag-Ox) 400 mg PO BID [facility] Last Admin: 02/11/18 09:13 Dose: 400 mg Metoprolol Tartrate (Lopressor) 100 mg PO BID [facility] Last Admin: 02/11/18 09:13 Dose: 100 mg Polyethylene Glycol (Miralax) 17 gm PO QID [facility] Last Admin: 02/11/18 09:14 Dose: Not Given - Labs Labs: 02/08/18 06:15 02/08/18 06:15 PT 13.7 SECONDS (9.4-12.5) H 02/06/18 21:20 INR 1.20 02/06/18 21:20 APTT 26.6 Seconds (25.1-36.5) 02/06/18 21:20 - Constitutional Appears: Non-toxic, No Acute Distress, Chronically Ill - Head Exam Head Exam: NORMAL INSPECTION - Eye Exam Eye Exam: Normal appearance - Respiratory Exam Respiratory Exam: Clear to Ausculation Bilateral, NORMAL BREATHING PATTERN - Cardiovascular Exam Cardiovascular Exam: REGULAR RHYTHM - GI/Abdominal Exam GI & Abdominal Exam: Soft, Normal Bowel Sounds. absent: Tenderness - Extremities Exam Extremities Exam: absent: Normal Inspection - Neurological Exam Neurological Exam: Alert, Awake, Oriented x3 - Psychiatric Exam Psychiatric exam: Normal Affect, Normal Mood - Skin Skin Exam: Normal Color Assessment and Plan - Assessment and Plan (Free Text) Assessment: 72 year old male with a past medical history significant for prior CVA with residual left sided weakness, Atrial Fibrillation on Eliquis, COPD, dementia, unspecified throat cancer s/p PEG (07/2017) who presented to the GI service with presumed abdominal wall cellulitis. Plan: -CT Abdomen/Pelvis showed left upper quadrant gastrostomy placement appears unremarkable with no extravasation of oral contrast material or local fluid collection appreciated, including the anterior abdominal wall and moderate constipation with borderline rectal fecal impaction. No bowel obstruction, perienteric or pericolic reactive change were noted. -Continue Miralax QID -Bolus tube feeds TID with FWF. -Continue Pepcid -Continue Unasyn, all ID recommendations appreciated -Patient is tolerating tube feeds. Would recommend d/c IVF and give fluids per PEG tube. <King,Kovil V - Last Filed: 02/12/18 00:18> Objective - Vital Signs/Intake and Output Vital Signs (last 24 hours): Temp Pulse Resp BP Pulse Ox 98.1 F 105 H 18 123/83 100 02/11/18 14:00 02/11/18 14:00 02/11/18 14:00 02/11/18 14:00 02/11/18 14:00 Intake and Output: 02/11/18 02/12/18 18:59 06:59 Intake Total 0 Balance 0 - Medications Medications: Current Medications Acetaminophen (Tylenol 325mg Tab) 650 mg PO Q4H PRN PRN Reason: Pain, Mild (1-3) Apixaban (Eliquis) 5 mg PO BID [facility] PRN Reason: Protocol Last Admin: 02/11/18 17:28 Dose: 5 mg Arformoterol Tartrate (Brovana) 15 mcg IH [id number] [facility] Last Admin: 02/11/18 20:25 Dose: 15 mcg Budesonide (Pulmicort Respules) 0.5 mg IH [id number] [facility] Last Admin: 02/11/18 20:25 Dose: 0.5 mg Famotidine (Pepcid) 40 mg PO HS [facility] Last Admin: 02/11/18 21:41 Dose: 40 mg Sodium Chloride (Sodium Chloride 0.9%) 1,000 mls @ 80 mls/hr IV .[id number] [facility] Last Admin: 02/11/18 13:19 Dose: 80 mls/hr Ampicillin Sodium/Sulbactam (Sodium 3 gm/ Sodium Chloride) 100 mls @ 100 mls/ hr IVPB Q8 [facility] PRN Reason: Protocol Last Admin: 02/11/18 21:41 Dose: 100 mls/hr Levetiracetam (Keppra) 500 mg PO Q12 [facility] Last Admin: 02/11/18 21:41 Dose: 500 mg Magnesium Oxide (Mag-Ox) 400 mg PO BID [facility] Last Admin: 02/11/18 17:28 Dose: 400 mg Metoprolol Tartrate (Lopressor) 100 mg PO BID [facility] Last Admin: 02/11/18 17:28 Dose: 100 mg Polyethylene Glycol (Miralax) 17 gm PO QID [facility] Last Admin: 02/11/18 21:41 Dose: Not Given - Labs Labs: 02/08/18 06:15 02/08/18 06:15 PT 13.7 SECONDS (9.4-12.5) H 02/06/18 21:20 INR 1.20 02/06/18 21:20 APTT 26.6 Seconds (25.1-36.5) 02/06/18 21:20 Attending/Attestation - Attestation I have personally seen and examined this patient.: Yes I have fully participated in the care of the patient.: Yes I have reviewed all pertinent clinical information, including history, physical exam and plan: Yes Notes (Text): This is an addendum to GI progress report dictated by the GI Fellow.The patient was seen and examined earlier. Medical records, lab studies, imagings were reviewed. Last 24 hours events reviewed. Agreed with the above treatment plan as outlined in GI Fellow 's notes with the addition of the following On miralax tolerating bolus feeding PO intake remains low Adjust GT feeding at least two hours after PO 02/12/18 00:16
[2018-02-11] MEDS: Sodium Chloride 0.9% 1,000 ML IV SCH (13:19)
--- NOTE | 2018-02-11 14:11 | CP.PCM.PN ---
Subjective - Date & Time of Evaluation Date of Evaluation: 02/11/18 Time of Evaluation: 13:00 - Subjective Subjective: Infectious Disease Follow Up: February 11, 2018 72 yo male with PMHx of Hypertension, Atrial Fibrillation, COPD, cirrhosis, TIA , Dementia, left sided hemiparesis, and throat cancer. The patient presents with left heel ulcer, generalized weakness, fatigue, and poor appetite. Patient is a poor historian and has a known history of dementia. Mild cellulitis at PEG site but overall PEG site appears well maintained. Patient appears fairly comfortable. Patient is not making any complaints. The patient started on tube feeds. Has pleasure feeds. Objective - Vital Signs/Intake and Output Vital Signs (last 24 hours): Temp Pulse Resp BP Pulse Ox 98.1 F 100 H 18 157/107 H 100 02/11/18 06:00 02/11/18 06:00 02/11/18 06:00 02/11/18 06:00 02/11/18 06:00 Intake and Output: 02/11/18 02/11/18 06:59 18:59 Intake Total 2220 Balance 2220 - Medications Medications: Current Medications Acetaminophen (Tylenol 325mg Tab) 650 mg PO Q4H PRN PRN Reason: Pain, Mild (1-3) Apixaban (Eliquis) 5 mg PO BID [facility] PRN Reason: Protocol Last Admin: 02/11/18 09:13 Dose: 5 mg Arformoterol Tartrate (Brovana) 15 mcg [facility] [id number] [facility] Last Admin: 02/11/18 07:18 Dose: 15 mcg Budesonide (Pulmicort Respules) 0.5 mg IH [id number] [facility] Last Admin: 02/11/18 07:18 Dose: 0.5 mg Famotidine (Pepcid) 40 mg PO HS [facility] Last Admin: 02/10/18 23:12 Dose: 40 mg Sodium Chloride (Sodium Chloride 0.9%) 1,000 mls @ 80 mls/hr IV .[id number] [facility] Last Admin: 02/11/18 13:19 Dose: 80 mls/hr Ampicillin Sodium/Sulbactam (Sodium 3 gm/ Sodium Chloride) 100 mls @ 100 mls/ hr IVPB Q8 [facility] PRN Reason: Protocol Last Admin: 02/11/18 13:20 Dose: 100 mls/hr Levetiracetam (Keppra) 500 mg PO Q12 [facility] Last Admin: 02/11/18 09:13 Dose: 500 mg Magnesium Oxide (Mag-Ox) 400 mg PO BID [facility] Last Admin: 02/11/18 09:13 Dose: 400 mg Metoprolol Tartrate (Lopressor) 100 mg PO BID [facility] Last Admin: 02/11/18 09:13 Dose: 100 mg Polyethylene Glycol (Miralax) 17 gm PO QID [facility] Last Admin: 02/11/18 13:20 Dose: Not Given - Labs Labs: 02/08/18 06:15 02/08/18 06:15 PT 13.7 SECONDS (9.4-12.5) H 02/06/18 21:20 INR 1.20 02/06/18 21:20 APTT 26.6 Seconds (25.1-36.5) 02/06/18 21:20 - Constitutional Appears: Non-toxic, No Acute Distress, Chronically Ill - Head Exam Head Exam: ATRAUMATIC, NORMOCEPHALIC - Eye Exam Eye Exam: EOMI, PERRL Pupil Exam: NORMAL ACCOMODATION, PERRL - ENT Exam ENT Exam: Mucous Membranes Moist, Normal External Ear Exam, TM's Normal Bilaterally - Neck Exam Neck Exam: Full ROM, Normal Inspection - Respiratory Exam Respiratory Exam: Clear to Ausculation Bilateral, NORMAL BREATHING PATTERN. absent: Rales, Rhonchi, Wheezes - Cardiovascular Exam Cardiovascular Exam: REGULAR RHYTHM, RRR, +S1, +S2 - GI/Abdominal Exam GI & Abdominal Exam: Soft, Normal Bowel Sounds. absent: Distended, Tenderness Additional comments: PEG in place... overall appears well maintained. - Extremities Exam Additional comments: Ulceration and DTI noted to left heel. No erythema, malodor, drainage, tracking , tunneling, undermining, probe to bone, or other clinical signs of infection noted. Weak distal pulses. Debridement by Dr. Herndon at bedside during this hospitalization... at worse Stage II ulcer. - Neurological Exam Neurological Exam: Alert, Awake, CN II-XII Intact - Psychiatric Exam Psychiatric exam: Normal Affect, Normal Mood - Skin Skin Exam: Normal Color Assessment and Plan - Assessment and Plan (Free Text) Assessment: 72 yo male with left heel ulceration and an extensive medical history. No erythema or drainage. No leukocytosis. Spoke with Dr. Herndon. Currently on Unasyn for antibiotic coverage. Given physical appearance of the heel and the lack of fevers or leukocytosis, will maintain on Unasyn alone. No need at this time to add Vancomycin IV. Local wound care as per podiatry. PEG site appears fairly clean. While in hospital, maintain on Unasyn. Can consider a switch to oral Keflex. CT scan suggested moderate fecal impaction. Thank you for allowing me to participate in the care of the patient, we will follow with you.
--- NOTE | 2018-02-11 20:48 | PN ---
DATE: 02/11/2018 SUBJECTIVE: The patient is a 72-year-old male. Patient was seen and examined at the bedside on 02/11/2018. I am doing dictation for 02/11/2018. Patient is awake, looking comfortable. No fever. No chills. No nausea, vomiting or diarrhea. No hematuria or hematochezia. No swelling of the legs. Feeding tube is working very well. Surrounding looks healthy. No more pusy discharge. PHYSICAL EXAMINATION: VITAL SIGNS: Temperature 98.5, pulse 100, respiratory rate 18, blood pressure 157/107, pulse oximetry 100%. HEENT: Head: Normocephalic and atraumatic. Eyes: PERRLA. Extraocular muscles intact. Conjunctivae clear. Nose patent. Mucous membrane moist. NECK: Supple. No carotid bruits. No JVD or thyromegaly. CHEST: Bilaterally symmetrical. HEART: S1, S2 positive. LUNGS: Clear to auscultation. ABDOMEN: Soft. Bowel sounds positive. Has PEG tube. EXTREMITIES: No edema. No cyanosis. NEUROLOGIC: Patient is awake, alert. Follows simple command. MEDICATIONS: Eliquis, Brovana, Pulmicort, Pepcid, NS, ampicillin/sulbactam, Keppra, magnesium oxide, Lopressor, MiraLax. LABORATORY DATA: White blood cell 6.9, hemoglobin 10.7, hematocrit 33.5, platelets 310.. Sodium 136, potassium 4.1, BUN 14, creatinine 0.7. Glucose 80. ASSESSMENT AND PLAN: Mr. Geo Ewing is a 72-year-old male with anemia, with past medical history of cerebrovascular accident with acute left-sided weakness, atrial fibrillation on Eliquis, chronic obstructive pulmonary disease, dementia, history of throat cancer, status post percutaneous endoscopic gastrostomy tube placement and was admitted for anorexia, fatigue, cellulitis of abdominal wall. CT of abdomen and pelvis shows left upper quadrant gastrostomy placement appear remarkable with no extravasation of the oral contrast material for fluid collection, include anterior wall and moderate constipation with borderline left fecal impaction. No bowel obstruction and GI started MiraLax, bolus tube feeding. Continue Pepcid. Continue Unasyn. Patient is tolerating feeding very well. Appreciated GI input. Seen by Dr. Cruz, exterior designer and Infectious Disease, Dr. Ferrara. Patient has history of atrial fibrillation, hypertension, chronic obstructive pulmonary disease, Patient has left heel ulcer. Patient is a poor historian and has dementia also. Percutaneous endoscopic gastrostomy site is improving. Gastrointestinal and deep venous thrombosis prophylaxes. Repeat labs. We will follow up. Mariana Fernandez MD MTDD
--- NOTE | 2018-02-12 00:41 | PN ---
DATE: 02/11/2018 PULMONARY PROGRESS NOTE REFERRING PHYSICIAN: Mariana Fernandez MD. SUBJECTIVE: He is lying in the bed, head at 45 degrees. Night was unremarkable. Very poor p.o. intake. No cough. No sputum production. No abdominal pain, leg pain or leg swelling. Has some heel ulcer. OBJECTIVE: GENERAL: In no acute distress. VITAL SIGNS: Temperature is 98, heart rate is 105, respiratory rate is 18, blood pressure 123/83, pulse ox 100% on room air. HEENT: Moist mucous membrane. No ulcer or thrush. NECK: Supple. No JVD. LUNGS: Have a fair airflow with rhonchi. HEART: S1 and S2. ABDOMEN: Soft, nontender, nondistended. G-tube area looks okay. EXTREMITIES: Has a heel ulcer with a heel protector. NEUROLOGIC: Awake, alert. Follows simple command. MEDICATIONS: He is on Unasyn 3 g IV every 8 hours, Brovana inhaled twice a day, Eliquis 5 mg twice a day, Keppra 500 mg twice a day, metoprolol tartrate 100 mg twice a day, mag oxide 400 mg twice a day, MiraLax 17 g four times a day, Pepcid 40 mg at bedtime, Pulmicort inhaled twice a day, IV fluid normal saline 80 mL per hour, Tylenol p.r.n. basis. LABORATORY DATA: Reviewed. No new lab is available. Microbiology, blood culture has been negative. IMPRESSION AND PLAN: Chronic obstructive lung disease, history of head and neck cancer requiring surgery, oropharyngeal dysphagia, has a G-tube, atrial fibrillation, history of cerebrovascular accident, hemiparesis, cirrhotic liver, hypertension, malnutrition, heel ulcer, very poor p.o. intake. Supplement by G-tube. Continue antibiotics. Aspiration precaution. Bronchodilator. Pressure ulcer precaution. Out of bed to chair if possible. Thank you and we will follow with you. Fatoumata Cruz MD
[2018-02-12 07:08] LABS: HEMOGLOBIN 9.9 g/dL (14.0-18.0); MEAN CELL VOLUME 80.8 fl (80.0-105.0); MEAN CORPUSCULAR HEMOGLOBIN 25.3 pg (25.0-35.0); MEAN CORPUSCULAR HGB CONC 31.3 g/dl (31.0-37.0); MEAN PLATELET VOLUME 8.5 fl (7.0-11.0); RBC 3.91 10^6/uL (3.5-6.1); RED CELL DISTRIBUTION WIDTH 15.8 % (11.5-14.5); WHITE BLOOD COUNT 6.3 10^3/ul (4.5-11.0)
[2018-02-12] MEDS: Budesonide 0.5 mg/2 ml Inhal Susp UD IH SCH ×2 (07:34→19:17)
[2018-02-12] MEDS: Arformoterol 15 mcg/2 ml Inh Sol IH SCH ×2 (07:34→19:16)
[2018-02-12 07:44] LABS: BLOOD UREA NITROGEN 10 mg/dL (7-21); CALCIUM 8.2 mg/dL (8.4-10.5); GFR NON-AFRICAN AMERICAN > 60
--- NOTE | 2018-02-12 09:09 | PN ---
DATE: 02/09/2018 SUBJECTIVE: Patient is a 72-year-old male. Patient was seen and examined on the bedside, looking comfortable, getting dinner, somebody was feeding him, he was eating comfortably. No dysphagia. No dysuria. No hematuria. No coughing. No fever. No chills. PHYSICAL EXAMINATION; VITAL SIGNS: Temperature 98, heart rate 105, respiratory rate 18, blood pressure 119/80, pulse oximetry 100% on room air. HEENT: Head: Normocephalic, atraumatic. Eyes: PERRLA. Extraocular muscles intact. Conjunctivae clear. Nose patent. NECK: Supple. No carotid bruit, JVD, thyromegaly. CHEST: Bilaterally symmetrical. HEART: S1 and S2 positive. LUNGS: Clear to auscultation. ABDOMEN: Soft. Bowel sounds present. No organomegaly. EXTREMITIES: No edema. No cyanosis. NEUROLOGIC: Patient is awake and alert. Moving all 4 extremities. No focal deficit. MEDICATIONS: Unasyn, Brovana, Eliquis, Keppra, metoprolol, magnesium oxide, MiraLax, Pepcid, Pulmicort, IV saline, Tylenol. LABORATORY DATA: We do not have recent lab today, but I reviewed old labs. ASSESSMENT AND PLAN: Mr. Geo Ewing is a 72-year-old male with chronic obstructive lung disease; history of head and neck cancer, requiring surgery; oropharyngeal dysphagia, has gastrostomy tube; atrial fibrillation; history of cerebrovascular accident; left hemiparesis; cirrhosis of liver; hypertension; hypercholesterolemia; malnutrition; history of percutaneous endoscopic gastrostomy tube placement; loosing weight. As per patient's daughter, no good appetite. We will continue present treatment. Gastrointestinal and deep venous thrombosis prophylaxes. Repeat labs. We will follow up. Mariana Fernandez MD
[2018-02-12] MEDS: Magnesium Oxide 400 mg Tab UD PO SCH ×2 (10:43→17:23)
[2018-02-12] MEDS: POLYETHYLENE GLYCOL 3350 17 GM/Dose PACKET PO SCH ×3 (13:18→17:17)
[2018-02-12 14:27] VITALS: RESP 20; O2SAT 99
[2018-02-12 14:29] VITALS: TEMP 99
--- NOTE | 2018-02-12 16:13 | CP.PCM.PN ---
<Sebastian Helm - Last Filed: 02/12/18 16:10> Subjective - Date & Time of Evaluation Date of Evaluation: 02/12/18 Time of Evaluation: 16:10 - Subjective Subjective: GI Fellow PGY4 No complaints. Laying bed, tolerating bolus feeds. no acute events overnight. Objective - Vital Signs/Intake and Output Vital Signs (last 24 hours): Temp Pulse Resp BP Pulse Ox 99 F 104 H 20 119/85 99 02/12/18 14:28 02/12/18 14:28 02/12/18 14:28 02/12/18 14:28 02/12/18 14:28 Intake and Output: 02/12/18 02/12/18 06:59 18:59 Intake Total 1920 240 Balance 1920 240 - Medications Medications: Current Medications Acetaminophen (Tylenol 325mg Tab) 650 mg PO Q4H PRN PRN Reason: Pain, Mild (1-3) Apixaban (Eliquis) 5 mg PO BID [facility] PRN Reason: Protocol Last Admin: 02/12/18 10:43 Dose: 5 mg Arformoterol Tartrate (Brovana) 15 mcg IH [id number] [facility] Last Admin: 02/12/18 07:34 Dose: 15 mcg Budesonide (Pulmicort Respules) 0.5 mg IH [id number] [facility] Last Admin: 02/12/18 07:34 Dose: 0.5 mg Famotidine (Pepcid) 40 mg PO HS [facility] Last Admin: 02/11/18 21:41 Dose: 40 mg Ampicillin Sodium/Sulbactam (Sodium 3 gm/ Sodium Chloride) 100 mls @ 100 mls/ hr IVPB Q8 [facility] PRN Reason: Protocol Last Admin: 02/12/18 13:27 Dose: 100 mls/hr Levetiracetam (Keppra) 500 mg PO Q12 [facility] Last Admin: 02/12/18 10:43 Dose: 500 mg Magnesium Oxide (Mag-Ox) 400 mg PO BID [facility] Last Admin: 02/12/18 10:43 Dose: 400 mg Metoprolol Tartrate (Lopressor) 100 mg PO BID [facility] Last Admin: 02/12/18 10:43 Dose: 100 mg Polyethylene Glycol (Miralax) 17 gm PO QID [facility] Last Admin: 02/12/18 13:24 Dose: Not Given - Labs Labs: 02/12/18 06:15 02/12/18 06:15 PT 13.7 SECONDS (9.4-12.5) H 02/06/18 21:20 INR 1.20 02/06/18 21:20 APTT 26.6 Seconds (25.1-36.5) 02/06/18 21:20 - Constitutional Appears: No Acute Distress, Cachectic, Chronically Ill - Head Exam Head Exam: NORMAL INSPECTION - ENT Exam ENT Exam: Mucous Membranes Moist - Respiratory Exam Respiratory Exam: Clear to Ausculation Bilateral, NORMAL BREATHING PATTERN - Cardiovascular Exam Cardiovascular Exam: REGULAR RHYTHM, +S1, +S2 - GI/Abdominal Exam GI & Abdominal Exam: Soft, Normal Bowel Sounds. absent: Tenderness Additional comments: PEG functioning - Extremities Exam Extremities Exam: absent: Normal Inspection - Neurological Exam Neurological Exam: Alert, Awake, Oriented x3 - Psychiatric Exam Psychiatric exam: Flat Affect - Skin Skin Exam: Normal Color Assessment and Plan - Assessment and Plan (Free Text) Assessment: 72 year old male with a past medical history significant for prior CVA with residual left sided weakness, Atrial Fibrillation on Eliquis, COPD, dementia, unspecified throat cancer s/p PEG (07/2017) who presented to the GI service with presumed abdominal wall cellulitis. Plan: -CT Abdomen/Pelvis showed left upper quadrant gastrostomy placement appears unremarkable with no extravasation of oral contrast material or local fluid collection appreciated, including the anterior abdominal wall and moderate constipation with borderline rectal fecal impaction. No bowel obstruction, perienteric or pericolic reactive change were noted. -Continue Miralax QID -Bolus tube feeds TID with FWF. -Continue Pepcid -Abx per ID -Patient is tolerating tube feeds. -No planned procedures <King,Kovil V - Last Filed: 02/12/18 22:55> Objective - Vital Signs/Intake and Output Vital Signs (last 24 hours): Temp Pulse Resp BP Pulse Ox 99 F 105 H 20 115/65 99 02/12/18 14:28 02/12/18 17:23 02/12/18 14:28 02/12/18 17:23 02/12/18 14:28 Intake and Output: 02/12/18 02/13/18 18:59 06:59 Intake Total 240 Balance 240 - Labs Labs: 02/12/18 06:15 02/12/18 06:15 PT 13.7 SECONDS (9.4-12.5) H 02/06/18 21:20 INR 1.20 02/06/18 21:20 APTT 26.6 Seconds (25.1-36.5) 02/06/18 21:20 Attending/Attestation - Attestation I have personally seen and examined this patient.: Yes I have fully participated in the care of the patient.: Yes I have reviewed all pertinent clinical information, including history, physical exam and plan: Yes Notes (Text): This is an addendum to GI progress report dictated by the GI Fellow.The patient was seen and examined earlier. Medical records, lab studies, imagings were reviewed. Last 24 hours events reviewed. Agreed with the above treatment plan as outlined in GI Fellow 's notes with the addition of the following Patient PO intake has improved Would benefit from Ensure supplement Can use PEG tube as needed 02/12/18 22:54
[2018-02-12 17:34] VITALS: BP 115/65; PULSE 105
--- NOTE | 2018-02-12 18:00 | CP.PCM.PN ---
Subjective - Date & Time of Evaluation Date of Evaluation: 02/12/18 Time of Evaluation: 17:00 - Subjective Subjective: Infectious Disease Follow Up: February 12, 2018 72 yo male with PMHx of Hypertension, Atrial Fibrillation, COPD, cirrhosis, TIA , Dementia, left sided hemiparesis, and throat cancer. The patient presents with left heel ulcer, generalized weakness, fatigue, and poor appetite. Patient is a poor historian and has a known history of dementia. Mild cellulitis at PEG site but overall PEG site appears well maintained. Patient appears fairly comfortable. Patient is not making any complaints. The patient started on tube feeds. Has pleasure feeds. Objective - Vital Signs/Intake and Output Vital Signs (last 24 hours): Temp Pulse Resp BP Pulse Ox 99 F 105 H 20 115/65 99 02/12/18 14:28 02/12/18 17:23 02/12/18 14:28 02/12/18 17:23 02/12/18 14:28 Intake and Output: 02/12/18 02/12/18 06:59 18:59 Intake Total 1920 240 Balance 1920 240 - Medications Medications: Current Medications Acetaminophen (Tylenol 325mg Tab) 650 mg PO Q4H PRN PRN Reason: Pain, Mild (1-3) Apixaban (Eliquis) 5 mg PO BID HEIDE PRN Reason: Protocol Last Admin: 02/12/18 17:23 Dose: 5 mg Arformoterol Tartrate (Brovana) 15 mcg IH [id number] [facility] Last Admin: 02/12/18 07:34 Dose: 15 mcg Budesonide (Pulmicort Respules) 0.5 mg IH [id number] [facility] Last Admin: 02/12/18 07:34 Dose: 0.5 mg Famotidine (Pepcid) 40 mg PO HS [facility] Last Admin: 02/11/18 21:41 Dose: 40 mg Ampicillin Sodium/Sulbactam (Sodium 3 gm/ Sodium Chloride) 100 mls @ 100 mls/ hr IVPB Q8 HEIDE PRN Reason: Protocol Last Admin: 02/12/18 13:27 Dose: 100 mls/hr Levetiracetam (Keppra) 500 mg PO Q12 [facility] Last Admin: 02/12/18 10:43 Dose: 500 mg Magnesium Oxide (Mag-Ox) 400 mg PO BID [facility] Last Admin: 02/12/18 17:23 Dose: 400 mg Metoprolol Tartrate (Lopressor) 100 mg PO BID [facility] Last Admin: 02/12/18 17:23 Dose: 100 mg Polyethylene Glycol (Miralax) 17 gm PO QID [facility] Last Admin: 02/12/18 17:17 Dose: Not Given - Labs Labs: 02/12/18 06:15 02/12/18 06:15 PT 13.7 SECONDS (9.4-12.5) H 02/06/18 21:20 INR 1.20 02/06/18 21:20 APTT 26.6 Seconds (25.1-36.5) 02/06/18 21:20 - Constitutional Appears: Non-toxic, No Acute Distress, Chronically Ill - Head Exam Head Exam: ATRAUMATIC, NORMOCEPHALIC - Eye Exam Eye Exam: EOMI, PERRL Pupil Exam: NORMAL ACCOMODATION, PERRL - ENT Exam ENT Exam: Mucous Membranes Moist, Normal External Ear Exam, TM's Normal Bilaterally - Neck Exam Neck Exam: Full ROM, Normal Inspection - Respiratory Exam Respiratory Exam: Clear to Ausculation Bilateral, NORMAL BREATHING PATTERN. absent: Rales, Rhonchi, Wheezes - Cardiovascular Exam Cardiovascular Exam: REGULAR RHYTHM, RRR, +S1, +S2 - GI/Abdominal Exam GI & Abdominal Exam: Soft, Normal Bowel Sounds. absent: Distended, Tenderness Additional comments: PEG in place... overall appears well maintained. - Extremities Exam Additional comments: Ulceration and DTI noted to left heel. No erythema, malodor, drainage, tracking , tunneling, undermining, probe to bone, or other clinical signs of infection noted. Weak distal pulses. Debridement by Dr. Herndon at bedside during this hospitalization... at worse Stage II ulcer. - Neurological Exam Neurological Exam: Alert, Awake, CN II-XII Intact, Oriented x3 - Psychiatric Exam Psychiatric exam: Normal Affect, Normal Mood - Skin Skin Exam: Intact, Normal Color Assessment and Plan - Assessment and Plan (Free Text) Assessment: 72 yo male with left heel ulceration and an extensive medical history. No erythema or drainage. No leukocytosis. Spoke with Dr. Herndon. Currently on Unasyn for antibiotic coverage. Given physical appearance of the heel and the lack of fevers or leukocytosis, will maintain on Unasyn alone. No need at this time to add Vancomycin IV. Local wound care as per podiatry. PEG site appears fairly clean. While in hospital, maintain on Unasyn. Can consider a switch to oral Keflex. CT scan suggested moderate fecal impaction. Thank you for allowing me to participate in the care of the patient, we will follow with you.
--- NOTE | 2018-02-12 18:37 | CP.PCM.PN ---
Subjective - Date & Time of Evaluation Date of Evaluation: 02/12/18 Time of Evaluation: 18:31 - Subjective Subjective: Podiatry Progress note for Dr. Montero 72M with seen and evaluated at bedside for left heel ulceration and DTI. Patient is poor historian. Patient seen with Multipodus boots on bilateral lower extremities. His nurse denies any overnight N/V/F/C/CP/SOB/D. She denies any other pedal complaint of him at this time. Objective - Vital Signs/Intake and Output Vital Signs (last 24 hours): Temp Pulse Resp BP Pulse Ox 99 F 105 H 20 115/65 99 02/12/18 14:28 02/12/18 17:23 02/12/18 14:28 02/12/18 17:23 02/12/18 14:28 Intake and Output: 02/12/18 02/12/18 06:59 18:59 Intake Total 1920 240 Balance 1920 240 - Medications Medications: Current Medications Acetaminophen (Tylenol 325mg Tab) 650 mg PO Q4H PRN PRN Reason: Pain, Mild (1-3) Apixaban (Eliquis) 5 mg PO BID HEIDE PRN Reason: Protocol Last Admin: 02/12/18 17:23 Dose: 5 mg Arformoterol Tartrate (Brovana) 15 mcg IH [id number] [facility] Last Admin: 02/12/18 07:34 Dose: 15 mcg Budesonide (Pulmicort Respules) 0.5 mg IH [id number] [facility] Last Admin: 02/12/18 07:34 Dose: 0.5 mg Famotidine (Pepcid) 40 mg PO HS [facility] Last Admin: 02/11/18 21:41 Dose: 40 mg Ampicillin Sodium/Sulbactam (Sodium 3 gm/ Sodium Chloride) 100 mls @ 100 mls/ hr IVPB Q8 HEIDE PRN Reason: Protocol Last Admin: 02/12/18 13:27 Dose: 100 mls/hr Levetiracetam (Keppra) 500 mg PO Q12 [facility] Last Admin: 02/12/18 10:43 Dose: 500 mg Magnesium Oxide (Mag-Ox) 400 mg PO BID [facility] Last Admin: 02/12/18 17:23 Dose: 400 mg Metoprolol Tartrate (Lopressor) 100 mg PO BID [facility] Last Admin: 02/12/18 17:23 Dose: 100 mg Polyethylene Glycol (Miralax) 17 gm PO QID [facility] Last Admin: 02/12/18 17:17 Dose: Not Given - Labs Labs: 02/12/18 06:15 02/12/18 06:15 PT 13.7 SECONDS (9.4-12.5) H 02/06/18 21:20 INR 1.20 02/06/18 21:20 APTT 26.6 Seconds (25.1-36.5) 02/06/18 21:20 - Constitutional Appears: Non-toxic, No Acute Distress - Head Exam Head Exam: ATRAUMATIC - Extremities Exam Additional comments: LE focused exam: Vasc: DP/PT pulses fainly palpable 1/4 b/l. Skin temperature warm to cool from proximal to distal. Cap refill < 3 seconds to all digits b/l. No edema noted b/l Neuro: Gross and protective sensation grossly intact b/l Derm: Superficial Ulceration and DTI noted to left heel. No erythema, malodor, drainage, tracking, tunneling, undermining, probe to bone, or other clinical signs of infection noted. Small superficial ulcer noted at the right heel which is almost closed by hard scab. No erythema, malodor, drainage, tracking, tunneling, undermining, probe to bone, or other clinical signs of infection noted MSK: Minimal tenderness on palpation to left heel. Rigid contractures of all digits 1-5 b/l. Unable to assess muscle strength secondary to patient mental status 7 - Neurological Exam Neurological Exam: Awake Assessment and Plan - Assessment and Plan (Free Text) Assessment: 2 y/o male seen and evaluated at bedside for left heel ulceration and DTI Plan: Patient seen and evaluated with Dr. Herndon Plan discussed with attending Dr. Herndon Chart, labs and vitals reviewed; Afebrile, no leukocytosis Wound appears clinically stable at this time Both heels dressed with Optifoam dressings Multipodus boots applied to b/l heels No plan for surgical intervention at this time Patient will be discharged later today by the primary team Podiatry will continue follow while patient in house Patient will follow up in the wound care center upon discharge.
--- NOTE | 2018-02-12 18:50 | PN ---
DATE: 02/12/2018 PULMONARY PROGRESS NOTE REFERRING PHYSICIAN: Mariana Fernandez MD SUBJECTIVE: Patient is lying in the bed, head at 45 degrees. Night was unremarkable. No headache, no rhinitis. No cough. No nausea. No abdominal pain. No leg swelling. OBJECTIVE: GENERAL: In no acute distress. VITAL SIGNS: Temperature is 99, heart rate is 104, respiratory rate is 20, blood pressure 119/85, pulse of 99% on room air. HEENT: Moist mucous membranes. No ulcer or thrush noted. NECK: Supple. No JVD. LUNGS: A fair airflow. HEART: S1 and S2. ABDOMEN: Soft. G-tube area looks okay. EXTREMITIES: There is no edema. NEUROLOGIC: Awake, alert, and does follows simple commands, but confused. MEDICATIONS: He is on Unasyn 3 g IV every 8 hours, Brovana inhaled twice a day, Eliquis 5 mg twice a day, Keppra 500 mg twice a day, metoprolol tartrate 100 mg twice a day, mag oxide 400 mg twice a day, MiraLax 17 g p.o. four times a day, Pepcid 40 mg daily, budesonide inhaled twice a day, Tylenol p.r.n. basis. LABORATORY DATA: Shows hemoglobin 9.9, hematocrit 31.6, WBC 6.3, and platelets 314. Sodium 137, potassium 2.7, chloride 108, bicarbonate 27. BUN 10, creatinine 0.7. Glucose 80. Calcium is 8.2. Microbiology: Blood culture, there is no growth. IMPRESSION AND PLAN: Chronic obstructive lung disease, history of head and neck cancer requiring resection, oropharyngeal dysphagia, has a G-tube, atrial fibrillation, history of cerebrovascular accident, cirrhotic liver, hypertension, malnutrition, heel ulcers. Pulmonary point of view, doing okay. Keep head at 45 degrees. Aspiration precaution. Antibiotics, bronchodilator. Pressure ulcer precaution. Thank you and we will follow with you. Fatoumata Cruz MD
--- NOTE | 2018-02-14 10:29 | HP ---
date 02/06/18 CHIEF COMPLAINT: Not eating very well, PEG tube area looks like infected. HISTORY OF PRESENT ILLNESS: Mr. Geo Ewing is a 72-year-old male with past medical history of atrial fibrillation, hypertension, COPD, throat cancer, cirrhosis of the liver, dementia, TIA, came to the Emergency Department with daughter for evaluation of generalized weakness, poor appetite, abdominal pain due to infected GI tube. The patient is confused, unable to offer history and physical, review of systems, but I know this patient very well, was admitted last time with me and was in [facility] under my service. After that, daughter was taking care of the patient at home and now, she called my office that father is not doing well, then we sent the patient to the hospital. PAST MEDICAL HISTORY: Hypertension, COPD, left-sided weakness, anemia, throat cancer, multiple skin discoloration, laceration above left eyelid, left inguinal hernia, cirrhosis of the liver, urinary incontinence, dysphagia, having PEG tube. FAMILY HISTORY: Father and mother, noncontributory. HABITS: No smoking. No drugs. No ethanol. ALLERGIES: THE PATIENT IS NOT ALLERGIC WITH ANY MEDICATIONS. HOME MEDICATIONS: Keppra. REVIEW OF SYSTEMS: The patient was seen and examined, complaining about fatigue, tired, not eating very well. No fever. No chills. No headache. No dizziness. No chest pain. No palpitations. No hematuria or hematochezia. PHYSICAL EXAMINATION: VITAL SIGNS: Temperature is 98.1, pulse 106, respiratory rate 18, blood pressure 142/93. HEENT: Head is normocephalic and atraumatic. Eyes PERRLA. Extraocular muscles are intact. Conjunctivae clear. Nose patent. Mucous membranes moist. NECK: Supple. No carotid bruit, JVD or thyromegaly. CHEST: Bilaterally symmetrical. HEART: S1 and S2 positive. LUNGS: Clear to auscultation. ABDOMEN: Soft. Purulent material surrounding the G-tube. No tenderness. No distention. EXTREMITIES: No edema. No cyanosis. NEUROLOGICAL: The patient is awake and alert. Speech is normal. Cranial nerves II through XII are grossly intact. LABORATORY DATA: White blood cell is 6.9, hemoglobin 12.1, hematocrit 37.5, and platelets 348. Sodium 136, potassium 4.7, BUN 23, creatinine 0.8, and glucose 96. ASSESSMENT AND PLAN: Mr. Geo Ewing is a 72-year-old male with anemia with renal insufficiency, has anorexia, cellulitis of abdominal G-tube area, malnutrition, abdominal wall cellulitis. Readmitted the patient. GI consult called. The patient has history of atrial fibrillation, hypertension, chronic obstructive pulmonary disease, throat cancer, cirrhosis of liver, dementia, transient ischemic attack. We did CAT scan of the head, chest x-ray, wrist x-ray, electrocardiogram. Pelvis and abdomen x-ray was done. Extremity ultrasound ordered. Gastrointestinal and deep venous thrombosis prophylaxes. Discussion done with the patient's daughter. Home medications started. Seizure precautions. We will follow. Mariana Fernandez MD MTDD
--- NOTE | 2018-02-14 15:33 | DS ---
The patient was seen and examined at bedside by me on 02/12/2018. CHIEF COMPLAINT: Fatigue, anorexia. HISTORY OF PRESENT ILLNESS: Mr. Geo Ewing, a 72-year-old male, well known to me from previous hospitalization and [facility]. Came to [facility] for anorexia, not eating very well, fatigue, tired. Anterior abdominal wall has pussy discharge from the PEG tube placement. We admitted the patient, did CAT scan of the head, CAT scan of the abdomen and pelvis, extremity ultrasound. Seen by Dr. Malik; Dr. Cruz; Dr. Ferrara, Infectious Disease. Antibiotics given. The patient improved. Swallowing evaluation was done. The patient is eating thickened diet and getting boluses with the PEG tube. Discharged home with the prescription of medications and boluses of feeding tin was given. PAST MEDICAL HISTORY: Hypertension, COPD, left-sided weakness, throat cancer, multiple skin discoloration, left inguinal hernia, cirrhosis, incontinence, depression, history of inguinal hernia, PEG tube placement. HABITS: No smoking. No drugs. No ethanol. FAMILY HISTORY: Father and mother, noncontributory. ALLERGIES: THE PATIENT IS NOT ALLERGIC WITH ANY MEDICATIONS. REVIEW OF SYSTEMS: The patient was seen and examined at the bedside, looking comfortable. Excited to go home. No fever. No chills. No headache. No dizziness. No chest pain. No palpitation. Appetite is getting better. No swelling of the leg. No cough. No nausea, vomiting, diarrhea. Night was unremarkable. PHYSICAL EXAMINATION: VITAL SIGNS: Temperature 99, heart rate 104, respiratory rate 20, blood pressure 111/85, pulse oximetry 99. HEENT: Head normocephalic, atraumatic. Eyes PERRLA. Extraocular muscles intact. Conjunctivae clear. Nose patent. NECK: Supple. No carotid bruit. No JVD or thyromegaly. CHEST: Bilaterally symmetrical. HEART: S1 and S2 positive. LUNGS: Clear to auscultation. ABDOMEN: Soft. Bowel sounds positive. No organomegaly. EXTREMITIES: No edema. No cyanosis. NEUROLOGICAL: The patient is awake and alert. Follows simple commands. MEDICATIONS: Unasyn, Brovana, Eliquis, Keppra, metoprolol, magnesium oxide, MiraLax, Pepcid, Tylenol. LABORATORY DATA: Hemoglobin 9.9, hematocrit 31.6, white blood cells 6.3, platelets 314. Sodium 137, potassium 2.7, BUN 10, creatinine 0.7. ASSESSMENT AND PLAN: Mr. Geo Ewing, a 72-year-old male, with chronic obstructive lung disease, history of head and neck cancer requiring resection, oropharyngeal dysphagia, has gastrostomy tube placement , history of cerebrovascular accident, cirrhosis of the liver, transient ischemic attack, hypertension, malnutrition, heel ulcers. Swallowing evaluation was done. Started eating. Boluses are given with percutaneous endoscopic gastrostomy tube. Pharmacy called for the authorization to get nutrition. Gastrointestinal, deep venous thrombosis prophylaxes. Medicine was provided at the bedside. We will follow up as outpatient. Mariana Fernandez MD MTDD
--- NOTE | 2018-02-21 21:00 | PQF ---
PROVIDER RESPONSE TEXT: Severe REVIEWER QUERY TEXT: Malnutrition Severity Malnutrition is documented in the Medical Record. Please specify the severity Such as: -- Mild - first degree -- Moderate - second degree -- Severe - third degree -- Severe malnutrition with marasmus -- Other, please specify The patient's Clinical Indicators include: Please see below. Thank you. Query created by: Darby Bundy on 02/15/2018 12:37 PM Electronically signed by: Mariana Fernandez MD 02/21/2018 8:56 PM
== END 2018-02-12 20:06 | disposition home or self-care (01) | DRG 602 ==
LOC: ED 19:01 → ERH 22:21 → 5RNO 02-07 02:11
PROVIDERS: ADMIT Internal Medicine; ATTEND Internal Medicine
DX: L03.311 Cellulitis of abdominal wall (principal); E43 Unspecified severe protein-calorie malnutrition; I69.354 Hemiplegia and hemiparesis following cerebral infarction affecting left non-dominant side; L97.429 Non-pressure chronic ulcer of left heel and midfoot with unspecified severity; R53.1 Weakness; Z85.819 Personal history of malignant neoplasm of unspecified site of lip, oral cavity, and pharynx; K74.60 Unspecified cirrhosis of liver; J44.9 Chronic obstructive pulmonary disease, unspecified; I48.91 Unspecified atrial fibrillation; I10 Essential (primary) hypertension; F03.90 Unspecified dementia, unspecified severity, without behavioral disturbance, psychotic disturbance, mood disturbance, and anxiety; R13.12 Dysphagia, oropharyngeal phase; Z95.0 Presence of cardiac pacemaker; L89.152 Pressure ulcer of sacral region, stage 2; L89.622 Pressure ulcer of left heel, stage 2; D64.9 Anemia, unspecified; E78.00 Pure hypercholesterolemia, unspecified; K29.70 Gastritis, unspecified, without bleeding; Z87.891 Personal history of nicotine dependence; M19.90 Unspecified osteoarthritis, unspecified site; R40.2412 Glasgow coma scale score 13-15, at arrival to emergency department; N28.9 Disorder of kidney and ureter, unspecified

== ENCOUNTER 2018-02-14 13:17 | Inpatient (IN) | payer MEDICARE, OTHER ==
[2018-02-14 13:18] VITALS: PULSE 75
[2018-02-14 14:06] VITALS: BMI 16.9
--- NOTE | 2018-02-14 14:26 | ED PDOC ---
Arrival/HPI - General Chief Complaint: Upper Extremity Problem/Injury Time Seen by Provider: 02/14/18 13:54 Historian: Patient EM Caveat: Dementia - History of Present Illness Narrative History of Present Illness (Text): 02/14/18 14:25 72 y/o M w/ h/o CVA and dementia, who was brought to the emergency department by EMS for left arm swelling. Patient was recently admitted to the hospital for episodes of syncope. He states that he normally ambulates on his own. Patient denies chest pain, sob, dizziness, headache, or abdominal pain. A more complete HPI was unable to be obtained due to the patient's clinical condition PCP: Dr. Fernandez Time/Duration: Prior to Arrival Symptom Onset: Sudden Symptom Course: Worsening Quality: Pressure Severity Level: Moderate Activities at Onset: Rest Context: Home Past Medical History - Provider Review Nursing Documentation Reviewed: Yes - Travel History Have you recently traveled outside [place] w/in the past 3 mons?: No - Infectious Disease Hx of Infectious Diseases: None - Cardiac Hx Hypertension: Yes - Pulmonary Hx Chronic Obstructive Pulmonary Disease (COPD): Yes - Neurological HX Cerebrovascular Accident: Yes (L sided weakness) - HEENT Hx HEENT Disorder: No - Renal Hx Renal Disorder: No - Endocrine/Metabolic Hx Endocrine Disorders: No - Hematological/Oncological Hx Blood Disorders: Yes Hx Anemia: Yes Hx Cancer: Yes (throat) - Integumentary Other/Comment: multiple ble skin discolorations - Musculoskeletal/Rheumatological Hx Falls: Yes - Gastrointestinal Hx Gastrointestinal Disorders: Yes (L INGUINAL HERNIA) Hx Liver Failure: Yes (cirrhosis) - Genitourinary/Gynecological Hx Incontinence: Yes - Psychiatric Hx Psychophysiologic Disorder: Yes Hx Depression: Yes Hx Substance Use: No - Surgical History Hx Inguinal Hernia Repair: Yes (right) - Anesthesia Hx Anesthesia Reactions: No Hx Malignant Hyperthermia: No - Suicidal Assessment Feels Threatened In Home Enviroment: No Family/Social History - Physician Review Nursing Documentation Reviewed: Yes Family/Social History: No Known Family HX Smoking Status: Unknown If Ever Smoked Hx Alcohol Use: No Hx Substance Use: No Allergies/Home Meds Allergies/Adverse Reactions: Allergies No Known Allergies Allergy (Verified 02/06/18 22:49) Home Medications: Home Meds Medication Instructions Recorded Confirmed levETIRAcetam [Keppra] 500 mg PO Q12 07/03/18 09/11/18 Review of Systems - Review of Systems Systems not reviewed;Unavailable: Dementia Respiratory: absent: SOB Cardiovascular: absent: Chest Pain Gastrointestinal: absent: Abdominal Pain Neurological: absent: Headache, Dizziness Physical Exam Vital Signs Reviewed: Yes Vital Signs Temp Pulse Resp BP Pulse Ox 02/15/18 02:29 105 H 18 123/77 100 02/15/18 02:10 105 H 18 128/81 100 02/15/18 01:19 105 H 18 126/80 100 02/15/18 01:01 104 H 18 124/72 100 02/15/18 00:43 105 H 119/60 02/15/18 00:36 115 H 126/72 02/15/18 00:31 115 H 126/72 02/14/18 23:41 191 H 18 93/29 L 100 02/14/18 23:37 212 H 16 100 02/14/18 21:26 108 H 18 135/87 100 02/14/18 17:53 150/96 H 02/14/18 14:31 98.7 F 105 H 19 147/96 H 99 Temperature: Afebrile Blood Pressure: Hypertensive Pulse: Tachycardic Respiratory Rate: Normal Appearance: Positive for: Well-Appearing, Comfortable, Cachectic Mental Status: Positive for: other (Alert and oriented x 1(place)) - Systems Exam Head: Present: Atraumatic, Normocephalic Pupils: Present: PERRL Extroacular Muscles: Present: EOMI Conjunctiva: Present: Normal Mouth: Present: Dry Neck: Present: Normal Range of Motion Respiratory/Chest: Present: Clear to Auscultation, Good Air Exchange, Other ( Implantable device noted to left hemithorax). No: Respiratory Distress, Accessory Muscle Use Cardiovascular: Present: Regular Rate and Rhythm, Normal S1, S2. No: Murmurs Abdomen: No: Tenderness, Distention, Peritoneal Signs Back: Present: Normal Inspection Upper Extremity: Present: Edema, NORMAL PULSES (strong bilateral radial pulses) , Tenderness (Left upper extremity tender to palpation), Swelling ( Circumferential swelling of left upper extremity to the digits.), Capillary Refill < 2s. No: Cyanosis Lower Extremity: Present: Normal Inspection, Other (Ulcer noted to left ankle and heel.). No: Edema Neurological: Present: GCS=15, CN II-XII Intact, Speech Normal Skin: Present: Warm, Dry, Other (Ecchymosis to right upper extremity.). No: Rashes Psychiatric: Present: Alert, Other (Oriented x 1 (place)) Medical Decision Making ED Course and Treatment: 02/14/18 14:25 Impression: 72 year old male brought in by EMS for left upper extremity swelling. Differential Diagnosis included but are not limited to: Lymphedema DVT Cellulitis Plan: -- VBG -- EKG --Labs -- Lasix -- Chest X-ray -- Upper extremity Duplex -- Urinalysis -- Reassess and disposition Prior Visits: Notes and results from previous visits were reviewed. Patient was last seen in the Emergency Department on 02/06/18 and was admitted for infected G-tube under Dr. Weber Progress Notes: 02/14/18 15:24 US oil heat technician called to inform me of negative DVT results for patient. Pending labs 02/14/18 17:26 Labs [place] 7550. No leukocytosis noted. CXR reveals Lasix ordered. Call placed to Dr. Weber. 02/14/18 17:43 Discussed case with , who is aware of and agrees to accept patient for observation telemetry under her service. Request consult with ( plater printed circuit board panels). - Lab Interpretations Lab Results: 02/14/18 16:23 02/14/18 16:23 Lab Results 02/15/18 10:50: Iron 34 L, TIBC 237 L, % Saturation 14 L 02/15/18 09:45: Troponin I 0.01 02/15/18 09:30: Hemoglobin A1c 5.3 02/15/18 09:30: Triglycerides 57, Cholesterol 81 L, LDL Cholesterol Direct 43, HDL Cholesterol 22 L, Vitamin B12 738, Folate > 20.0 02/15/18 04:15: Troponin I < 0.01 02/14/18 16:23: PT 15.9 H, INR 1.39, APTT 34.8 02/14/18 16:23: Sodium 136, Chloride 101, Potassium 4.4, Carbon Dioxide 27, Anion Gap 12, BUN 11, Creatinine 0.8, Est GFR ( Amer) > 60, Est GFR (Non- Af Amer) > 60, Random Glucose 91, Calcium 8.9, Total Bilirubin 0.4, AST 44, ALT 33, Alkaline Phosphatase 61, Troponin I < 0.01 D, NT-Pro-B Natriuret Pep 7550 H , Total Protein 7.3, Albumin 3.3, Globulin 4.0, Albumin/Globulin Ratio 0.8 L 02/14/18 16:23: pO2 41, VBG pH 7.40, VBG pCO2 48.0, VBG HCO3 29.7 H, VBG Total CO2 31.2 H, VBG O2 Sat (Calc) 71.8 H, VBG Base Excess 4.0 H, VBG Potassium 4.4, Sodium 135.0, Chloride 102.0, Glucose 89, Lactate 1.3, FiO2 21.0, Venous Blood Potassium 4.4 02/14/18 16:23: WBC 9.3 D, RBC 4.55, Hgb 11.9 L D, Hct 36.9 L, MCV 81.1, MCH 26.2, MCHC 32.2, RDW 16.1 H, Plt Count 313, MPV 8.5, Gran % 83.9 H, Lymph % ( Auto) 10.2 L, [place] % (Auto) 5.2, Eos % (Auto) 0.6 L, Baso % (Auto) 0.1, Gran # 7.82 H, Lymph # (Auto) 1.0 L, [place] # (Auto) 0.5, Eos # (Auto) 0.1, Baso # (Auto ) 0.01 I have reviewed the lab results: Yes - RAD Interpretation Narrative RAD Interpretations (Text): 02/14/18 Chest X-ray: Dictator : Mariah Webb MD IMPRESSION: No active pulmonary disease. 02/14/18 Left Upper Extremity Venous Ultrasound: Dictator : Taye Cleaning MD IMPRESSION: 1. No sonographic evidence for deep venous thrombosis in the visualized segments of the left upper extremity. 2. Limited study. Radiology Orders: 02/14/18 14:11 CHEST PORTABLE [RAD] Stat 02/14/18 14:12 DUPLEX UPPER EXTRM VEIN LEFT [US] Stat 02/15/18 04:20 FOREARM LEFT [RAD] Routine Fermenter: Radiologist - EKG Interpretation EKG Interpretation (Text): Sinus tachycardia @ 108bpm Prolonged QT intervals. LVH. Interpreted by ED Physician: Yes Type: 12 lead EKG - Medication Orders Current Medication Orders: Apixaban (Eliquis) 5 mg PO BID HEIDE PRN Reason: Protocol Last Admin: 02/18/18 18:02 Dose: 5 mg Arformoterol Tartrate (Brovana) 15 mcg IH [id number] [facility] Last Admin: 02/19/18 07:47 Dose: 15 mcg Budesonide (Pulmicort Respules) 0.5 mg IH [id number] [facility] Last Admin: 02/19/18 07:47 Dose: 0.5 mg Diltiazem HCl (Cardizem) 30 mg PO QID [facility] Last Admin: 02/18/18 22:55 Dose: 30 mg MAR Pulse and Blood Pressure Document 02/18/18 22:55 KOPPS (Rec: 02/18/18 22:55 KOS [id number]) Pulse Pulse Rate (60-90) 90 Famotidine (Pepcid) 40 mg PO HS [facility] Last Admin: 02/18/18 22:55 Dose: 40 mg Furosemide (Lasix) 20 mg PO DAILY [facility] Last Admin: 02/18/18 09:16 Dose: 20 mg MAR Blood Pressure Document 02/18/18 09:16 [facility] (Rec: 02/18/18 09:16 [id number] Blood Pressure Blood Pressure (100/60-150/90) 115/70 Hydralazine HCl (Apresoline) 10 mg IVP Q6 PRN PRN Reason: elevated blood pressure Last Admin: 02/15/18 17:16 Dose: 10 mg IVP Administration Document 02/15/18 17:16 (Rec: 02/15/18 17:16 [id number]) Charges for Administration # of IVP Administrations 1 MAR Pulse and Blood Pressure Document 02/15/18 17:16 (Rec: 02/15/18 17:16 [id number]) Blood Pressure Blood Pressure (100/60-150/90) 155/106 Ketorolac Tromethamine (Toradol) 15 mg IVP Q6H [facility] Last Admin: 02/19/18 05:48 Dose: Not Given Non-Admin Reason: Patient Refused Levetiracetam (Keppra) 500 mg PO Q12 [facility] Last Admin: 02/18/18 22:55 Dose: 500 mg Lorazepam (Ativan) 1 mg IVP ONCE PRN; Protocol PRN Reason: Seizure activity Last Admin: 02/16/18 08:29 Dose: 1 mg IVP Administration Document 02/16/18 08:29 [facility] (Rec: 02/16/18 08:31 [id number] Charges for Administration # of IVP Administrations 1 Behavioural Document 02/16/18 08:29 EUSTL (Rec: 02/16/18 08:31 [id number] Maintenance Maintenance Dose No Nonmedicinal Nonmedicinal Interventions See nurse's notes Behavior Behavior for Medication: Anxiety Behavior Comment seizures Re-Assess: Reassess Psych Meds Document 02/16/18 08:59 EUS (Rec: 02/16/18 10:15 [id number]) Reassess Psych Med Effective Lorazepam (Ativan) 0.5 mg IVP Q8H PRN; Protocol PRN Reason: Seizure activity Magnesium Oxide (Mag-Ox) 400 mg PO BID [facility] Last Admin: 02/18/18 18:02 Dose: 400 mg Metoprolol Tartrate (Lopressor) 100 mg PO BID [facility] Last Admin: 02/18/18 18:03 Dose: 100 mg [facility] Pulse and Blood Pressure Document 02/18/18 18:03 [facility] (Rec: 02/18/18 18:03 [facility] [id number]) Pulse Pulse Rate (60-90) 105 Blood Pressure Blood Pressure (100/60-150/90) 112/66 Polyethylene Glycol (Miralax) 17 gm PO BID [facility] Last Admin: 02/18/18 18:03 Dose: Not Given Non-Admin Reason: Patient Refused Discontinued Medications Diltiazem HCl (Cardizem) 10 mg IVP STAT STA Stop: 02/15/18 00:37 Last Admin: 02/15/18 00:36 Dose: 10 mg IVP Administration Document 02/15/18 00:36 AD (Rec: 02/15/18 01:04 AD [id number]) Charges for Administration # of IVP Administrations 1 MAR Pulse and Blood Pressure Document 02/15/18 00:36 AD (Rec: 02/15/18 01:04 AD [id number]) Pulse Pulse Rate (60-90) 115 Blood Pressure Blood Pressure (100/60-150/90) 126/72 Furosemide (Lasix) 40 mg IVP STAT STA Stop: 02/14/18 17:23 Last Admin: 02/14/18 17:53 Dose: 40 mg MAR Blood Pressure Document 02/14/18 17:53 GMD (Rec: 02/14/18 17:56 GMD [id number]) Blood Pressure Blood Pressure (100/60-150/90) 150/96 IVP Administration Document 02/14/18 17:53 GMD (Rec: 02/14/18 17:56 GMD [id number]) Charges for Administration # of IVP Administrations 1 Hydralazine HCl (Apresoline) 10 mg PO ONCE ONE Stop: 02/15/18 12:22 Last Admin: 02/15/18 12:45 Dose: 10 mg MAR Pulse and Blood Pressure Document 02/15/18 12:45 (Rec: 02/15/18 12:48 [id number]) Pulse Pulse Rate (60-90) 102 Blood Pressure Blood Pressure (100/60-150/90) 149/106 Sodium Chloride (Sodium Chloride 0.9%) 1,000 mls @ 50 mls/hr IV .Q20H STA Stop: 02/15/18 17:51 Last Admin: 02/14/18 22:18 Dose: 50 mls/hr eMAR Start Stop Document 02/14/18 22:18 AD (Rec: 02/14/18 22:19 AD [id number]) Intravenous Solution Start Date 02/14/18 Start Time 22:18 Sodium Chloride (Sodium Chloride 0.9%) 500 mls @ 999 mls/hr IV .Q31M STA Stop: 02/15/18 00:48 Ketorolac Tromethamine (Toradol) 15 mg IVP STAT STA Stop: 02/15/18 00:11 Last Admin: 02/15/18 00:18 Dose: Ketorolac Tromethamine (Toradol) 15 mg IVP Q4H [facility] Last Admin: 02/17/18 21:10 Dose: 15 mg MAR Pain Assessment Document 02/17/18 21:10 EMANUEL (Rec: 02/17/18 21:10 EMANUEL [id number]) Pain Reassessment Is this a pain reassessment? No Sleep Is patient sleeping during reassessment? No Presence of Pain Presence of Pain Yes Location Pain Location Body Site Back IVP Administration Document 02/17/18 21:10 EMANUEL (Rec: 02/17/18 21:10 EMANUEL [id number]) Charges for Administration # of IVP Administrations 1 Re-Assess: [facility] Pain Assessment Document 02/17/18 22:10 EMANUEL (Rec: 02/18/18 01:32 EMANUEL [id number]) Pain Reassessment Is this a pain reassessment? Yes Sleep Is patient sleeping during reassessment? Yes Lorazepam (Ativan) 1 mg IVP Q6H PRN; Protocol PRN Reason: Seizure activity Morphine Sulfate (Morphine) 2 mg IVP STAT STA Stop: 02/15/18 00:13 Last Admin: 02/15/18 00:21 Dose: Morphine Sulfate (Morphine) 2 mg IVP Q6H PRN PRN Reason: Pain, severe (8-10) Last Admin: 02/15/18 16:11 Dose: 2 mg [facility] Pain Assessment Document 02/15/18 16:11 (Rec: 02/15/18 16:11 [id number]) Pain Reassessment Is this a pain reassessment? No Presence of Pain Presence of Pain Yes Pain Scale Used Pain Scale Used [place] Location Pain Location Body Site Generalized IVP Administration Document 02/15/18 16:11 (Rec: 02/15/18 16:11 [id number]) Charges for Administration # of IVP Administrations 1 Re-Assess: [facility] Pain Assessment Document 02/15/18 17:11 (Rec: 02/15/18 17:47 [id number][facility] Pain Reassessment Is this a pain reassessment? Yes Sleep Is patient sleeping during reassessment? Yes - Scribe Statement The provider has reviewed the documentation as recorded by the Scribe Robert Lyon Provider Scribe Attestation: All medical record entries made by the Scribe were at my direction and personally dictated by me. I have reviewed the chart and agree that the record accurately reflects my personal performance of the history, physical exam, medical decision making, and the department course for this patient. I have also personally directed, reviewed, and agree with the discharge instructions and disposition. Disposition/Present on Arrival - Present on Arrival Any Indicators Present on Arrival: No History of DVT/PE: No History of Uncontrolled Diabetes: No Urinary Catheter: No History of Decub. Ulcer: No History Surgical Site Infection Following: None - Disposition Have Diagnosis and Disposition been Completed?: Yes Diagnosis: Edema Disposition: HOSPITALIZED Disposition Time: 17:43 Patient Plan: Admission Condition: STABLE
[2018-02-14 16:30] LABS: VENOUS BLOOD GAS PO2 41 mm/Hg (30-55)
[2018-02-14 16:37] LABS: BASO # 0.01 K/mm3 (0.0-2.0); BASO % 0.1 % (0.0-3.0); EOS # 0.1 (0.0-0.7); EOS % 0.6 % (1.5-5.0); GRAN # 7.82 (1.4-6.5); GRAN % 83.9 % (50.0-68.0); HEMOGLOBIN 11.9 g/dL (14.0-18.0); LYMPH % 10.2 % (22.0-35.0); MEAN CELL VOLUME 81.1 fl (80.0-105.0); MEAN CORPUSCULAR HEMOGLOBIN 26.2 pg (25.0-35.0); MEAN CORPUSCULAR HGB CONC 32.2 g/dl (31.0-37.0); MEAN PLATELET VOLUME 8.5 fl (7.0-11.0); MONO # 0.5 (0.1-0.6); MONO % 5.2 % (1.0-6.0); RBC 4.55 10^6/uL (3.5-6.1); RED CELL DISTRIBUTION WIDTH 16.1 % (11.5-14.5); WHITE BLOOD COUNT 9.3 10^3/ul (4.5-11.0)
[2018-02-14 16:38] LABS: INR 1.39; PARTIAL THROMBOPLASTIN TIME 34.8 Seconds (25.1-36.5); PROTHROMBIN TIME 15.9 SECONDS (9.4-12.5)
[2018-02-14 16:40] LABS: ALB/GLOB RATIO 0.8 (1.1-1.8); ALBUMIN 3.3 g/dL (3.0-4.8); ALT/SGPT 33 U/L (7-56); AST/SGOT 44 U/L (17-59); BLOOD UREA NITROGEN 11 mg/dL (7-21); CALCIUM 8.9 mg/dL (8.4-10.5); GFR NON-AFRICAN AMERICAN > 60
[2018-02-14 16:51] LABS: B-TYPE NATRIURETIC PEPTIDE 7550 pg/mL (0-450); TROPONIN I < 0.01 ng/mL
--- NOTE | 2018-02-14 18:19 | RAD ---
Date of service: 02/14/2018 HISTORY: sob COMPARISON: 02/06/2018 FINDINGS: LUNGS: The lungs are well inflated and clear. PLEURA: No significant pleural effusion identified, no pneumothorax apparent. CARDIOVASCULAR: Mild cardiomegaly. There is stable position of left-sided permanent pacing device. OSSEOUS STRUCTURES: No significant abnormalities. VISUALIZED UPPER ABDOMEN: Normal. OTHER FINDINGS: None. IMPRESSION: No active pulmonary disease.
--- NOTE | 2018-02-14 19:37 | US ---
PROCEDURE: Left upper extremity venous ultrasound HISTORY: Arm pain and swelling. Evaluate for deep venous thrombosis. PHYSICIAN(S): Taye Meraz MD. FINDINGS: The exam is limited by the patient's inability to cooperate. The visualized leftinternal jugular vein is sonographically normal and compressible. No evidence of obstruction or thrombus is seen. The visualized segments of the left subclavian vein are patent with normal waveforms. No sonographic evidence of obstruction or thrombosis is seen. The visualized deep venous system of the proximal leftupper extremity is sonographically normal and compressible. IMPRESSION: 1. No sonographic evidence for deep venous thrombosis in the visualized segments of the left upper extremity. 2. Limited study.
--- NOTE | 2018-02-14 20:49 | CARD ---
APPROVED REPORT Date of service: 02/14/2018 EKG Measurement Heart [id number] [place] 120P [id number] <Conclusion> Sinus tachycardia Left ventricular hypertrophy with repolarization abnormality Abnormal ECG
[2018-02-14] MEDS ORDERED: Sodium Chloride 0.9% 1,000 ML IV STA (21:52)
[2018-02-15] MEDS ORDERED: Morphine 2 mg/ml ISec ONE (00:08)
[2018-02-15] MEDS ORDERED: Morphine 2 mg/ml ISec IVP STA (00:12)
[2018-02-15] MEDS ORDERED: Sodium Chloride 0.9% 500 ML IV STA (00:18)
--- NOTE | 2018-02-15 01:41 | CP.PCM.CON ---
<Ata Amor - Last Filed: 02/15/18 03:19> History of Present Illness - History of Present Illness History of Present Illness: Ata Amor DO PGY-1, ICU consult note for Dr. Kirk This is a 72 year old male with PMH of afib, HTN, COPD, throat ca, Cirrhosis of the liver, dementia, TIA who was BIBA for evaluation of left arm swelling. ICU was consulted to evaluate due to tachycardia, in the 140s. Pt seen and evaluated at bedside. Pt is a poor historian. Pt denies chest pain, shortness of breath. Full ROS was unobtainable because pt is unwilling to answer questions, easily agitated. PMH: afib, HTN, COPD, throat ca, Cirrhosis of the liver, dementia, TIA PSH: inguinal hernia repair Meds: as per MAR Allx: NKDA Review of Systems - Review of Systems Systems not reviewed;Unavailable: Uncooperative All systems: reviewed and no additional remarkable complaints except (as per HPI ) Past Patient History - Infectious Disease Hx of Infectious Diseases: None - Past Medical History & Family History Past Medical History?: Yes - Past Social History Smoking Status: Unknown If Ever Smoked - CARDIAC Hx Hypertension: Yes - PULMONARY Hx Chronic Obstructive Pulmonary Disease (COPD): Yes - NEUROLOGICAL HX Cerebrovascular Accident: Yes (L sided weakness) - HEENT Hx HEENT Problems: No - RENAL Hx Chronic Kidney Disease: No - ENDOCRINE/METABOLIC Hx Endocrine Disorders: No - HEMATOLOGICAL/ONCOLOGICAL Hx Blood Disorders: Yes Hx Anemia: Yes Hx Cancer: Yes (throat) - INTEGUMENTARY Other/Comment: multiple ble skin discolorations - MUSCULOSKELETAL/RHEUMATOLOGICAL Hx Falls: Yes - GASTROINTESTINAL Hx Gastrointestinal Disorders: Yes (L INGUINAL HERNIA) Hx Liver Failure: Yes (cirrhosis) - GENITOURINARY/GYNECOLOGICAL Hx Incontinence: Yes - PSYCHIATRIC Hx Psychophysiologic Disorder: Yes Hx Depression: Yes Hx Substance Use: No - SURGICAL HISTORY Hx Surgeries: Yes - ANESTHESIA Hx Anesthesia Reactions: No Hx Malignant Hyperthermia: No Meds Allergies/Adverse Reactions: Allergies Allergy/AdvReac Type Severity Reaction Status Date / Time No Known Allergies Allergy Verified 02/06/18 22:49 - Medications Medications: Current Medications Sodium Chloride (Sodium Chloride 0.9%) 1,000 mls @ 50 mls/hr IV .Q20H STA Stop: 02/15/18 17:51 Last Admin: 02/14/18 22:18 Dose: 50 mls/hr Levetiracetam (Keppra) 500 mg PO Q12 [facility] Metoprolol Tartrate (Lopressor) 100 mg PO BID [facility] Physical Exam - Constitutional Appears: Well, No Acute Distress - Head Exam Head Exam: ATRAUMATIC, NORMAL INSPECTION - Eye Exam Eye Exam: EOMI, Normal appearance - ENT Exam ENT Exam: Mucous Membranes Dry - Neck Exam Neck exam: Positive for: Normal Inspection - Respiratory Exam Respiratory Exam: Rhonchi, NORMAL BREATHING PATTERN. absent: Rales, Wheezes, Respiratory Distress - Cardiovascular Exam Cardiovascular Exam: Tachycardia, +S1, +S2 - GI/Abdominal Exam GI & Abdominal Exam: Soft. absent: Tenderness - Extremities Exam Extremities exam: Positive for: pedal pulses present. Negative for: calf tenderness, pedal edema - Back Exam Back exam: NORMAL INSPECTION - Neurological Exam Neurological exam: Alert - Psychiatric Exam Psychiatric exam: Normal Mood - Skin Skin Exam: Normal Color, Warm Results - Vital Signs Recent Vital Signs: Last Vital Signs Temp 98.7 F 02/14/18 14:31 Pulse 105 H 02/15/18 01:19 Resp 18 02/15/18 01:19 BP 126/80 02/15/18 01:19 Pulse Ox 100 02/15/18 01:19 - Labs Result Diagrams: 02/14/18 16:23 02/14/18 16:23 Assessment & Plan - Assessment and Plan (Free Text) Assessment: This is a 72 year old male with PMH of afib, HTN, COPD, throat ca, Cirrhosis of the liver, dementia, TIA who was BIBA for evaluation of left arm swelling. While waiting for placement in the ED, developed sinus tachycardia in the 150s. In the ED, he was given Adenosine 6 mg , followed by Adenosine 12 mg IV. HR remained in the 120s. ICU was consulted due to tachycardia. Left arm swelling - Doppler in the ED shows prelim no evidence of DVT - left arm x-ray - Analgesia with morphine and toradol ST vs SVT; possibly secondary to pain, dehydration - Cardizem 10 mg IVP given with resolution of tachycardia - NS IVF 500 mL bolus - Pt has been satting 100% on RA. S/p cardizem administration: HR is around 90s- low 100s. BP is 120s/70s - Analgesia with Morphine and Toradol - Troponin x1 is normal, will trend troponin x2 Q6H - CXR shows no active pulmonary disease - Primary team has consulted cardiology Pt does not need ICU admission at this time. Please feel free to reconsult if needed. Case was reviewed and discussed with attending physician, Dr. Kirk. <Adam Kirk - Last Filed: 02/15/18 06:20> Meds - Medications Medications: Current Medications Sodium Chloride (Sodium Chloride 0.9%) 1,000 mls @ 50 mls/hr IV .Q20H STA Stop: 02/15/18 17:51 Last Admin: 02/14/18 22:18 Dose: 50 mls/hr Ketorolac Tromethamine (Toradol) 15 mg IVP Q4H [facility] Levetiracetam (Keppra) 500 mg PO Q12 [facility] Last Admin: 02/15/18 01:30 Dose: 500 mg Metoprolol Tartrate (Lopressor) 100 mg PO BID [facility] Morphine Sulfate (Morphine) 2 mg IVP Q6H PRN PRN Reason: Pain, severe (8-10) Results - Vital Signs Recent Vital Signs: Last Vital Signs Temp 97.8 F 02/15/18 06:00 Pulse 106 H 02/15/18 06:00 Resp 20 02/15/18 06:00 BP 142/78 02/15/18 06:00 Pulse Ox 99 02/15/18 06:00 - Labs Result Diagrams: 02/14/18 16:23 02/14/18 16:23 Labs: Laboratory Results - last 24 hr 02/15/18 04:15 Troponin I < 0.01 Attending/Attestation - Attestation I have personally seen and examined this patient.: Yes I have fully participated in the care of the patient.: Yes I have reviewed all pertinent clinical information: Yes Notes (Text): 02/15/18 06:17 Pt. was giving adenosine x 2 doses. SVT vs. Sinus Tach started after pt. was given 40 mg of IV lasix. Lungs appears to be congested on exam although pt. looks clinically dry, possible secretions. Recommend holding diuretics and lasix at this time. Tachycardia improved after Adenosine, morphine and toradol.
[2018-02-15] MEDS ORDERED: Morphine 2 mg/ml ISec IVP PRN (03:24)
[2018-02-15] MEDS ORDERED: LACTOSE REDUCED FOOD PEG SCH (10:00)
--- NOTE | 2018-02-15 10:11 | RAD ---
Date of service: 02/15/2018 PROCEDURE: Radiographs of the Left Forearm HISTORY: left arm swelling COMPARISON: None available. TECHNIQUE: Frontal and lateral views obtained. FINDINGS: BONES: There is diffuse bone demineralization. There is no acute displaced fracture or bone destruction. Bone alignment is normal. JOINT SPACES: There is moderate degenerative osteoarthrosis in the radiocarpal joint. There is a well circumscribed lucency in the scaphoid, nonspecific. OTHER FINDINGS: Atherosclerotic vascular calcifications are present. IMPRESSION: No acute fracture or bone destruction. Well-circumscribed lucency in the scaphoid, nonspecific.
[2018-02-15] MEDS: POLYETHYLENE GLYCOL 3350 17 GM/Dose PACKET PO SCH ×2 (10:20→17:47)
[2018-02-15] MEDS: Magnesium Oxide 400 mg Tab UD PO SCH ×2 (10:20→17:47)
[2018-02-15 10:30] LABS: HDL CHOLESTEROL 22 mg/dL (29-60)
[2018-02-15 10:42] LABS: LDL CHOLESTEROL 43 mg/dL (0-129)
--- NOTE | 2018-02-15 10:45 | HP ---
DATE OF EXAM: 02/14/2018 HISTORY OF PRESENT ILLNESS: Mr. Geo Ewing, 72-year-old male with history of CVA, dementia, who was brought to the Emergency Department by EMS for left arm swelling. The patient was recently admitted to the hospital for episode of syncope. He states that he normally ambulates on his own as per the patient. The patient denies chest pain, shortness of breath, dizziness, headache, abdominal pain, but he is complaining about fatigue and tired. We admitted the patient, did Doppler of the extremity. PAST MEDICAL HISTORY: As above, hypertension, COPD, left-sided weakness, history of throat cancer, history of PEG tube placement, multiple skin discoloration, left inguinal hernia, incontinence, depression, right inguinal hernia repair. FAMILY HISTORY: Father and mother, noncontributory. HABITS: Smoking, questionable alcohol. No substance abuse. ALLERGIES: THE PATIENT IS NOT ALLERGIC WITH ANY MEDICATIONS. HOME MEDICATIONS: Keppra. REVIEW OF SYSTEMS: The patient was seen and examined on the bedside in the emergency room. No shortness of breath. No chest pain. Feeling fatigue and tired. Swelling of the left upper extremity, especially . No headache. No dizziness. PHYSICAL EXAMINATION: VITAL SIGNS: Temperature 98.7, pulse 105, respiratory rate 19, blood pressure 147/96. HEENT: Head normocephalic, atraumatic. Eyes PERRLA. Extraocular muscles intact. Conjunctivae clear. Nose patent. Mucous membrane moist. NECK: Supple. No carotid bruit. No JVD or thyromegaly. CHEST: Bilaterally symmetrical. HEART: S1 and S2 positive. LUNGS: Clear to auscultation. ABDOMEN: Soft. Bowel sounds positive. No organomegaly. EXTREMITIES: Left upper extremity tender to palpation, swelling. Circumferential swelling of the left upper extremity to the digits and the hand. Lower extremities, no edema, no cyanosis. NEUROLOGICAL: The patient is awake, alert. Follows simple commands. LABORATORY DATA: White blood cell is 9.3, hemoglobin 11.9, hematocrit 36.9, platelets 313. Sodium 133, potassium 4.4, BUN 11, creatinine 0.8, glucose 91. ASSESSMENT AND PLAN: Mr. Geo Ewing, 72-year-old male with anemia, history of cerebrovascular accident. Left upper extremity venous ultrasound is done. No sonographic evidence of deep vein thrombosis in the visualized segment of the left upper extremity. History of throat cancer, chronic obstructive pulmonary disease, multiple skin discoloration, left inguinal hernia, cirrhosis of the liver, right inguinal hernia repair, history of dysphagia, having percutaneous endoscopic gastrostomy tube, history of hypertension, left-sided weakness, depression. Admitted the patient. Restarted old medications. Cardiology consult called with Dr. Torres. Gastrointestinal, deep venous thrombosis prophylaxis. Repeat labs. We will follow up. Mariana Fernandez MD
[2018-02-15 11:27] LABS: IRON 34 ug/dL (45-180)
[2018-02-15 11:37] LABS: % IRON SATURATION 14 % (20-55); TOTAL IRON BINDING CAPACITY 237 ug/dL (261-462)
--- NOTE | 2018-02-15 13:08 | CP.PCM.CON ---
History of Present Illness - History of Present Illness History of Present Illness: Awake, no distress Reason for consultation: Cardiac evaluation for congestive heart failure, admitted due to arm swelling, history of CVA, left sided weakness Brief history of present illness:A 72 year old emaciated male who was brought to the ER due to left arm swelling. History of hypertension, CVA, left sided weakness, throat cancer, history of PEG placement, left inguinal hernia, incontinence,depression,COPD,anemia, liver cirrhosis,depression. Atrial fibrillation on Eliquis, PPM for tachycardia-bradycardia syndrome. Left arm negative for DVT. Seen and examined by me and Dr. Huynh Review of Systems - Review of Systems All systems: reviewed and no additional remarkable complaints except Review of Systems: except from HPI Past Patient History - Infectious Disease Hx of Infectious Diseases: None - Past Medical History & Family History Past Medical History?: Yes - Past Social History Smoking Status: Unknown If Ever Smoked - CARDIAC Hx Hypertension: Yes Hx Pacemaker: Yes - PULMONARY Hx Chronic Obstructive Pulmonary Disease (COPD): Yes - NEUROLOGICAL HX Cerebrovascular Accident: Yes (L sided weakness) - HEENT Hx HEENT Problems: No - RENAL Hx Chronic Kidney Disease: No - ENDOCRINE/METABOLIC Hx Endocrine Disorders: No - HEMATOLOGICAL/ONCOLOGICAL Hx Blood Disorders: Yes Hx Anemia: Yes Hx Cancer: Yes (throat) - INTEGUMENTARY Other/Comment: multiple ble skin discolorations - MUSCULOSKELETAL/RHEUMATOLOGICAL Hx Falls: Yes - GASTROINTESTINAL Hx Gastrointestinal Disorders: Yes (L INGUINAL HERNIA) Hx Liver Failure: Yes (cirrhosis) - GENITOURINARY/GYNECOLOGICAL Hx Incontinence: Yes - PSYCHIATRIC Hx Psychophysiologic Disorder: Yes Hx Depression: Yes - SURGICAL HISTORY Hx Surgeries: Yes - ANESTHESIA Hx Anesthesia Reactions: No Hx Malignant Hyperthermia: No Meds Allergies/Adverse Reactions: Allergies Allergy/AdvReac Type Severity Reaction Status Date / Time No Known Allergies Allergy Verified 02/06/18 22:49 - Medications Medications: Current Medications Apixaban (Eliquis) 5 mg PO BID [facility] PRN Reason: Protocol Last Admin: 02/15/18 10:20 Dose: 5 mg Arformoterol Tartrate (Brovana) 15 mcg IH [id number] [facility] Budesonide (Pulmicort Respules) 0.5 mg IH [id number] [facility] Famotidine (Pepcid) 40 mg PO HS [facility] Sodium Chloride (Sodium Chloride 0.9%) 1,000 mls @ 50 mls/hr IV .Q20H STA Stop: 02/15/18 17:51 Last Admin: 02/14/18 22:18 Dose: 50 mls/hr Ketorolac Tromethamine (Toradol) 15 mg IVP Q4H [facility] Levetiracetam (Keppra) 500 mg PO Q12 [facility] Last Admin: 02/15/18 09:37 Dose: 500 mg Magnesium Oxide (Mag-Ox) 400 mg PO BID [facility] Last Admin: 02/15/18 10:20 Dose: 400 mg Metoprolol Tartrate (Lopressor) 100 mg PO BID [facility] Last Admin: 02/15/18 09:36 Dose: 100 mg Morphine Sulfate (Morphine) 2 mg IVP Q6H PRN PRN Reason: Pain, severe (8-10) Polyethylene Glycol (Miralax) 17 gm PO BID [facility] Last Admin: 02/15/18 10:20 Dose: 17 gm Physical Exam - Constitutional Appears: No Acute Distress - ENT Exam ENT Exam: Mucous Membranes Dry - Respiratory Exam Respiratory Exam: Decreased Breath Sounds, NORMAL BREATHING PATTERN - Cardiovascular Exam Cardiovascular Exam: +S1, +S2 Additional comments: PPM Telemetry Sinus tachycardia - GI/Abdominal Exam GI & Abdominal Exam: Normal Bowel Sounds, Soft Additional comments: PEG - Extremities Exam Additional comments: left arm swelling left sided weakness - Neurological Exam Neurological exam: Alert - Psychiatric Exam Psychiatric exam: Normal Affect - Skin Skin Exam: Intact, Warm Results - Vital Signs Recent Vital Signs: Last Vital Signs Temp 98 F 02/15/18 12:00 Pulse 102 H 02/15/18 12:45 Resp 18 02/15/18 12:00 BP 149/106 H 02/15/18 12:45 Pulse Ox 99 02/15/18 06:00 - Labs Result Diagrams: 02/14/18 16:23 02/14/18 16:23 Labs: Laboratory Results - last 24 hr 02/15/18 02/15/18 02/15/18 04:15 09:30 09:45 Iron TIBC % Saturation Troponin I < 0.01 0.01 Triglycerides 57 Cholesterol 81 L LDL Cholesterol Direct 43 HDL Cholesterol 22 L 02/15/18 10:50 Iron 34 L TIBC 237 L % Saturation 14 L Troponin I Triglycerides Cholesterol LDL Cholesterol Direct HDL Cholesterol Assessment & Plan - Assessment and Plan (Free Text) Assessment: Brief history of present illness:A 72 year old emaciated male who was brought to the ER due to left arm swelling. History of hypertension, CVA, left sided weakness,pulmonary hypertension,Atrial fibrillation on Eliquis, PPM for tachycardia-bradycardia syndrome. cardiomyopathy LVEF- 25%throat cancer, history of PEG placement, left inguinal hernia, incontinence,depression,COPD, anemia, liver cirrhosis,depression. Left arm negative for DVT.Consult called to evaluate for congestive heart failure. Chest X ray normal with no congestion, mild cardiomegaly. Denies shortness of breath, however BNP elevated. EKG sinus tachycardia with left ventricular hypertrophy, Left forearm swelling negative for DVT. X ray of left forearm negative for fracture. Previous cardiac work up: 08/01/17- ECHO- Severely impaired systolic function LVEF 25% Mild MR/TR Moderate pulmonary hypertension. 08/03/17- PPM insertion V[facility]IR [employer] (Tachycardia/Bradycardia Syndrome Plan: Denies shortness of breath,no distress Uncontrolled heart rate and blood pressure PRN hydralazine given Ordered PRN hydralazine On Eliquis 5 mg BID, Lopressor 100 mg BID,Hydralazine 10 mg PRN. Will start Coreg 12.5 mg BID Lasix 40 mg daily Continue current medications Continue current treatment Further recommendation during hospital course Will follow up Plan and treatment discussed with Dr. Huynh Thank you Dr. Fernandez for the opportunity of taking care of Mr. Geo Ewing - Date & Time Date: 02/15/18 Time: 07:15
[2018-02-15 16:31] LABS: FOLATE > 20.0 ng/mL
[2018-02-15] MEDS: Budesonide 0.5 mg/2 ml Inhal Susp UD IH SCH (19:30)
[2018-02-15] MEDS: Arformoterol 15 mcg/2 ml Inh Sol IH SCH (19:30)
--- NOTE | 2018-02-15 22:06 | PN ---
DATE: 02/15/2018 SUBJECTIVE: The patient was seen and examined on the bedside on 02/15/2018. Looking comfortable. Still complaining about left hand pain. No hematuria or hematochezia. No headache. No dizziness. Having left-sided weakness. PHYSICAL EXAMINATION: VITAL SIGNS: Temperature 98, pulse 102, respiratory rate 18, blood pressure 149/106, pulse oximetry 99. HEENT: Head normocephalic, atraumatic. Eyes PERRLA. Extraocular muscles intact. Conjunctivae clear. Nose patent. Mucous membrane moist. NECK: Supple. No carotid bruit. No JVD or thyromegaly. CHEST: Bilaterally symmetrical. HEART: S1 and S2 positive. LUNGS: Clear to auscultation. ABDOMEN: Soft. Bowel sounds positive. No organomegaly. EXTREMITIES: Lower extremity, trace edema. NEUROLOGICAL: The patient is awake and alert. Follows simple commands. MEDICATIONS: Eliquis, Brovana, Pulmicort, Pepcid, NS, Toradol, Keppra, magnesium oxide, Lopressor, morphine, MiraLax. LABORATORY DATA: White blood cells 9.3, hemoglobin 11.9, hematocrit 36.9, platelets 330. Sodium 133, potassium 4.4, BUN 11, creatinine 0.8, glucose 91. ASSESSMENT AND PLAN: Mr. Geo Ewing, 72-year-old male with anemia, has history of hypertension; cerebrovascular accident; left-sided weakness; pulmonary hypertension; atrial fibrillation, on Eliquis; tachycardia bradyarrhythmia syndrome; cardiomyopathy, left ventricular ejection fraction 25%; throat and tongue cancer; history of percutaneous endoscopic gastrostomy tube placement; left inguinal hernia repair; incontinent; depression; chronic obstructive pulmonary disease; anemia; liver cirrhosis; left arm negative for deep venous thrombosis; congestive heart failure; BNP is high; dry shortness of breath at this moment, elevated BNP. EKG shows sinus tachycardia with left ventricular hypertrophy, left forearm swelling. Negative for deep venous thrombosis. X-ray of left forearm negative for fracture. It looks like dependent edema. Uncontrolled heart rate and blood pressure. P.r.n. hydralazine started. On Eliquis, Lopressor. Started Coreg, Lasix. Continue current medications. Gastrointestinal, deep venous thrombosis prophylaxis. Repeat labs. We will follow up. Mariana Fernadnez MD
--- NOTE | 2018-02-16 05:58 | CON ---
DATE: 02/15/2018 PULMONARY CONSULTATION NOTE REFERRING PHYSICIAN: Dr. Fernandez REASON FOR CONSULTATION: Chronic lung disease. HISTORY OF PRESENT ILLNESS: This is a 72-year-old gentleman with past medical history significant for stroke, dementia, history of head and neck cancer requiring surgery, oropharyngeal dysphagia requiring G-tube. The patient has swelling of left upper extremity, also recent syncopal episode, more lethargic than usual, came to emergency room where was admitted for and kept for observation for further workup. Presently lying in the bed, lethargic, arousable. Does follow simple command. No hemoptysis, no hematemesis. No hematuria or diarrhea reported. PAST MEDICAL HISTORY: As per history of present illness. History of depression, inguinal hernia. FAMILY HISTORY: No significant cardiopulmonary disease reported. SOCIAL HISTORY: Positive history of smoking. No alcohol use. ALLERGIES: NONE KNOWN. MEDICATIONS: He is on hydralazine 10 mg every 6 hours p.r.n., Brovana inhaled twice a day, diltiazem 30 mg four times a day, Eliquis 5 mg twice a day, Keppra 500 mg twice a day, Lasix 20 mg daily, metoprolol tartrate 100 mg twice a day, Mag-Oxide 400 mg twice a day, MiraLax 17 g twice a day, morphine 2 mg IV every 6 hours p.r.n., Pepcid 40 mg at bedtime, Pulmicort inhaled twice a day, Toradol 15 mg every 4 hours. REVIEW OF SYSTEMS: Sleepy, arousable. Follows simple commands. No hemoptysis or emesis. No hematuria, no diarrhea reported. Had some rectum swelling. PHYSICAL EXAMINATION: GENERAL: No acute distress. VITAL SIGNS: Temperature is 98, heart rate 82, respiratory rate is 20, blood pressure 155/106, pulse ox 99% on nasal cannula. HEENT: Moist mucous membrane. Crowded airway. NECK: Supple. No JVD. LUNGS: Have fair airflow with rhonchi. HEART: S1 and S2. ABDOMEN: Soft, nontender, nondistended. G-tube area looks okay. EXTREMITIES: There is no edema. NEUROLOGICALLY: Sleepy, arousable. LABORATORY DATA: Shows hemoglobin 11.9, hematocrit 36.9, WBC 9.3, platelet is 313. INR 1.39. PTT 35. VBG show pH 7.4, pCO2 of 48, O2 41. Sodium 136, potassium 4.4, chloride 101, bicarbonate 27, BUN 11, creatinine 0.8, glucose 91, calcium 8.9, AST 44, ALT 33, alk phos is 61. ProBNP 7550. Cholesterol is 81. B12 738. Folate is more than 20. Had a chest x-ray done on admission, shows no infiltrate or effusion. Also upper extremity ultrasound done in ER shows no sonographic evidence of DVT, thrombus in the visualized segment of the left upper extremity. Also had EKG done which shows sinus tachycardia, left ventricular hypertrophy with repolarization abnormality. IMPRESSION AND PLAN: Chronic obstructive lung disease, history of stroke, head and neck cancer requiring surgery, feeding difficulty requiring G-tube, inguinal hernia, cirrhotic liver, hypertension. Pulmonary point of view, doing okay. Continue bronchodilator. Keep head at 45 degrees. There is also component of heart failure. Gastric prophylaxis. Deep venous thrombosis prophylaxis. Seen by Cardiology. Follow up labs in the morning. Thank you and we will follow with you. Fatoumata Cruz MD
--- NOTE | 2018-02-16 07:07 | CP.PCM.PN ---
Subjective - Date & Time of Evaluation Date of Evaluation: 02/16/18 Time of Evaluation: 06:20 - Subjective Subjective: Lying in bed,awake, no distress Reason for consultation: Cardiac evaluation for congestive heart failure, admitted due to arm swelling, history of CVA, left sided weakness Seen and examined by me and Dr. Huynh Objective - Vital Signs/Intake and Output Vital Signs (last 24 hours): Temp Pulse Resp BP Pulse Ox 98.9 F 103 H 19 148/79 96 02/16/18 06:00 02/16/18 06:00 02/16/18 06:00 02/16/18 06:00 02/16/18 06:00 Intake and Output: 02/16/18 02/16/18 06:59 18:59 Intake Total 0 Balance 0 - Medications Medications: Current Medications Apixaban (Eliquis) 5 mg PO BID [facility] PRN Reason: Protocol Last Admin: 02/15/18 17:47 Dose: 5 mg Arformoterol Tartrate (Brovana) 15 mcg IH [id number] [facility] Last Admin: 02/15/18 19:30 Dose: 15 mcg Budesonide (Pulmicort Respules) 0.5 mg IH [id number] [facility] Last Admin: 02/15/18 19:30 Dose: 0.5 mg Diltiazem HCl (Cardizem) 30 mg PO QID [facility] Last Admin: 02/15/18 22:41 Dose: 30 mg Famotidine (Pepcid) 40 mg PO HS [facility] Last Admin: 02/15/18 22:46 Dose: 40 mg Furosemide (Lasix) 20 mg PO DAILY [facility] Hydralazine HCl (Apresoline) 10 mg IVP Q6 PRN PRN Reason: elevated blood pressure Last Admin: 02/15/18 17:16 Dose: 10 mg Ketorolac Tromethamine (Toradol) 15 mg IVP Q4H [facility] Last Admin: 02/15/18 22:42 Dose: 15 mg Levetiracetam (Keppra) 500 mg PO Q12 [facility] Last Admin: 02/15/18 22:41 Dose: 500 mg Magnesium Oxide (Mag-Ox) 400 mg PO BID [facility] Last Admin: 02/15/18 17:47 Dose: 400 mg Metoprolol Tartrate (Lopressor) 100 mg PO BID [facility] Last Admin: 02/15/18 17:47 Dose: 100 mg Morphine Sulfate (Morphine) 2 mg IVP Q6H PRN PRN Reason: Pain, severe (8-10) Last Admin: 02/15/18 16:11 Dose: 2 mg Polyethylene Glycol (Miralax) 17 gm PO BID [facility] Last Admin: 02/15/18 17:47 Dose: 17 gm - Labs Labs: PT 15.9 SECONDS (9.4-12.5) H 02/14/18 16:23 INR 1.39 02/14/18 16:23 APTT 34.8 Seconds (25.1-36.5) 02/14/18 16:23 - Constitutional Appears: No Acute Distress - Eye Exam Eye Exam: Normal appearance - ENT Exam ENT Exam: Mucous Membranes Moist - Respiratory Exam Respiratory Exam: Clear to Ausculation Bilateral, NORMAL BREATHING PATTERN - Cardiovascular Exam Cardiovascular Exam: +S1, +S2 Additional comments: PPM - GI/Abdominal Exam GI & Abdominal Exam: Soft, Normal Bowel Sounds Additional comments: PEG - Extremities Exam Additional comments: left arm 1-2+edema - Back Exam Additional comments: left side weakness - Neurological Exam Neurological Exam: Alert, Awake, Oriented x3 - Psychiatric Exam Psychiatric exam: Normal Affect - Skin Skin Exam: Intact, Warm Assessment and Plan - Assessment and Plan (Free Text) Assessment: A 72 year old emaciated male who was brought to the ER due to left arm swelling. History of hypertension, CVA, left sided weakness,pulmonary hypertension,Atrial fibrillation on Eliquis, PPM for tachycardia-bradycardia syndrome. cardiomyopathy LVEF- 25%throat cancer, history of PEG placement, left inguinal hernia, incontinence,depression,COPD,anemia, liver cirrhosis, depression. Left arm negative for DVT.Consult called to evaluate for congestive heart failure. Chest X ray normal with no congestion, mild cardiomegaly. Denies shortness of breath, however BNP elevated. EKG sinus tachycardia with left ventricular hypertrophy, Left forearm swelling negative for DVT. X ray of left forearm negative for fracture. Previous cardiac work up: 08/01/17- ECHO- Severely impaired systolic function LVEF 25% Mild MR/TR Moderate pulmonary hypertension. 08/03/17- PPM insertion VVIR [employer] (Tachycardia/Bradycardia Syndrome Plan: No distress,Denies shortness of breath Controlled heart rate and blood pressure Telemetry Afib/ sinus tachycardia 100's- On Eliquis Left arm swelling, negative for DVT or fracture, started low dose Lasix On Eliquis 5 mg BID, Lopressor 100 mg BID,Hydralazine 10 mg PRN. Coreg 12.5 mg BID, Lasix 40 mg daily Continue current medications Continue current treatment Further recommendation during hospital course Will follow up Plan and treatment discussed with Dr. Huynh
[2018-02-16 07:21] LABS: HEMOGLOBIN 12.1 g/dL (14.0-18.0); MEAN CORPUSCULAR HEMOGLOBIN 25.9 pg (25.0-35.0); MEAN CORPUSCULAR HGB CONC 31.9 g/dl (31.0-37.0); MEAN PLATELET VOLUME 8.9 fl (7.0-11.0); RBC 4.68 10^6/uL (3.5-6.1); RED CELL DISTRIBUTION WIDTH 15.8 % (11.5-14.5); WHITE BLOOD COUNT 7.8 10^3/ul (4.5-11.0)
[2018-02-16 07:42] LABS: BLOOD UREA NITROGEN 15 mg/dL (7-21); CALCIUM 8.7 mg/dL (8.4-10.5); GFR NON-AFRICAN AMERICAN > 60
[2018-02-16] MEDS: Budesonide 0.5 mg/2 ml Inhal Susp UD IH SCH ×2 (07:45→20:24)
[2018-02-16] MEDS: Arformoterol 15 mcg/2 ml Inh Sol IH SCH ×2 (07:45→20:24)
--- NOTE | 2018-02-16 08:17 | PCM.RRT ---
<Alan Monreal - Last Filed: 02/16/18 11:40> [employer] Nurse Assessment - Situation Date: 02/16/18 Time [employer] was called: 08:00 [employer] Responder Arrival Time: 08:02 [employer] Location:: [address] [place] [address] Room Number: [id number] [employer] Reason for Call: Change in Mental Status, Looks Sicker [employer]ER Called By: RN - IV IV Inserted during WOODS OVERSEER?: No - Respiratory Oxygen Delivery Method: Nasal Cannula @L/min Oxygen Flow Rate: 2 Received Nebulizer Treatments:: No Was the Patient Ventilated with Bag/Mask 100% O2?: No Secretions Suctioned?: Yes Was the Patient Intubated?: No Was the Patient Placed on a Ventilator?: No - Medication Medications Administered During WOODS OVERSEER: none - Diagnostic Test Ordered EKG: Yes CT Scan: Yes (head) - Stat Labs Ordered [employer] Stat Labs Ordered: BMP CPR started during WOODS OVERSEER?: No - Vital Signs Vital Sign: Rapid Response Vital Sign Blood Pressure 148/63 Pulse Rate 77 Respiratory Rate 18 Temperature 98.5 F Oxygen Saturation 100 - Finger Stick Blood Glucose Finger Stick Blood Glucose: 106 - Magdalene Coma Scale Coma Scale Eye Opening: No response Coma Scale Motor: None Coma Scale Verbal: No response - Time WO[employer]S OVER[employer]ER Ended Time WO[employer] OVER[employer]ER Ended: 08:09 - Vital Signs at end of [employer]ER Vital Signs at end of [employer] OVER[employer]ER: Rapid Response End Vital Sign Blood Pressure 105/55 Pulse Rate 105 Respiratory Rate 18 Temperature 98 F O2 Sat by Pulse Oximetry 97 - Recommendations Notifications: Attending Physician, Consultations - Respiratory Oxygen Delivery Method: Nasal Cannula @L/min Oxygen Flow Rate: 2 Plan - Assessment of Findings&Treatment Plan Alan Monreal- Internal Medicine Resident- House Doctor Subjective: WO[employer] OVER[employer]ER called on patient by RN for seizure like activity. As per staff, patient was seen shaking his body and did not respond to verbal stimuli prior to WO[employer]ER. Event lasted for approximately 120 seconds. Patient seen and examined. Patient was awake, alert, responded to verbal stimuli, answered questions appropriately , and followed commands. Patient did not recall aforementioned event. Admits to baseline left upper extremity contraction. Denies associated dizziness, visual/ auditory changes, chest palpitations, and neurological deficits. Further denies fever, chills, chest pain, shortness of breath, abdominal pain, nausea/vomiting , diarrhea, constipation, and urinary symptoms. 12 Point ROS negative except as indicated in HPI Physical Examination: - Constitutional Appears: No Acute Distress - Head Exam Head Exam: ATRAUMATIC - Eye Exam Eye Exam: EOMI Pupil Exam: PERRL - ENT Exam ENT Exam: Mucous Membranes Moist - Respiratory Exam Respiratory Exam: Clear to Auscultation Bilateral. absent: Respiratory Distress - Cardiovascular Exam Cardiovascular Exam: Tachycardic, +S1, +S2 - GI/Abdominal Exam GI & Abdominal Exam: Normal Bowel Sounds. absent: Firm, Guarding - Extremities Exam Extremities exam: Positive for: normal inspection. Negative for: calf tenderness - Neurological Exam Neurological exam: AAO x 2, CN II-XII Intact, muscle strength 5/5 right upper extremity, left upper extremity is contracted, 5/5 bilateral lower extremities, sensation intake to touch throughout - Skin Skin Exam: Normal Color, Warm Assessment and Plan: Patient is a 72 year old male whom a [employer] OVER[employer]ER was called upon patient for seizure like activity. Seizure Like Activity, Hx of Seizures - Seizure subsided and patient is hemodynamically stable - EKG reviewed and appreciated- sinus tachycardia, HR 105bpm, qtC 465ms - Head CT without contrast stat - High risk fall precautions - Seizure precautions - Neuro checks q4 hrs - ativan 1mg once prn seizure activity - Neurology consult placed as per primary team's request Primary team made aware patient case. Patient case endorsed to and plan approved by attending physician, Dr. Ramos. <Mary Jo Ramos - Last Filed: 02/16/18 16:15> [employer] Nurse Assessment - Vital Signs Vital Sign: Rapid Response Vital Sign Blood Pressure 148/63 Pulse Rate 77 Respiratory Rate 18 Temperature 98.5 F Oxygen Saturation 100 - Vital Signs at end of WO[employer] OVER[employer]ER Vital Signs at end of WOODS OVERSEER: Rapid Response End Vital Sign Blood Pressure 105/55 Pulse Rate 105 Respiratory Rate 18 Temperature 98 F O2 Sat by Pulse Oximetry 97 Attending/Attestation - Attestation I have personally seen and examined this patient.: Yes I have fully participated in the care of the patient.: Yes I have reviewed all pertinent clinical information, including history, physical exam and plan: Yes Notes (Text): 02/16/18 16:12 Attending note; Patient seen and examined during [employer]. Patient had a brief episode of seizure. Patient with a history of seizure disorder on Keppra. Currently patient is alert. Awake. Baseline dysarthria. Vitals stable. Not in any acute distress. Labs reviewed. CT head ordered. Case discussed with PMD Dr. Fernandez in detail. Neurology evaluation requested. Nursing staff informed. Ativan when necessary ordered. Fall precautions/seizure precautions/aspiration precautions.
--- NOTE | 2018-02-16 09:15 | CON ---
DATE: 02/15/2018 REASON FOR CONSULTATION AND FOLLOWUP: Admitted with heart failure, history of CVA, history of pacemaker, history of atrial fibrillation. This note is an addendum to the initial progress note dictated by our nurse practitioner, Suzan Ceja. Patient has a history of atrial fibrillation at home and was on Eliquis, last time we started; history of pacemaker; history of PEG. Pressure is still uncontrolled, so we will resume back his baseline medication including Eliquis and metoprolol. I thought the patient is already on metoprolol initially. Plan was to start Coreg, but we will discontinue Coreg and continue metoprolol. Add Cardizem because the patient is still tachycardic and has elevated blood pressure. We will continue p.r.n. hydralazine. We will also resume back gentle diuretics. If remains stable, we will discontinue telemetry tomorrow. We will follow with you. Thank you, Dr. Fernandez, for providing us the opportunity in taking care of the patient, Geo Ewing. Fatoumata Huynh MD
--- NOTE | 2018-02-16 09:24 | CT ---
Date of service: 02/16/2018 PROCEDURE: CT HEAD WITHOUT CONTRAST. HISTORY: seizure like activity COMPARISON: 02/07/2018 TECHNIQUE: Axial computed tomography images were obtained through the head/brain without intravenous contrast. Radiation dose: Total exam DLP = 1088 mGy-cm. This CT exam was performed using one or more of the following dose reduction techniques: Automated exposure control, adjustment of the mA and/or kV according to patient size, and/or use of iterative reconstruction technique. FINDINGS: HEMORRHAGE: No intracranial hemorrhage. BRAIN: No mass effect or edema. Severe chronic encephalomalacia bilaterally right greater than left in the frontal lobes. VENTRICLES: Unremarkable. No hydrocephalus. CALVARIUM: Unremarkable. PARANASAL SINUSES: Unremarkable as visualized. No significant inflammatory changes. MASTOID AIR CELLS: Unremarkable as visualized. No inflammatory changes. OTHER FINDINGS: None. IMPRESSION: Severe chronic encephalomalacia in both hemispheres. No acute intracranial findings
[2018-02-16] MEDS: Magnesium Oxide 400 mg Tab UD PO SCH ×2 (10:22→17:58)
[2018-02-16] MEDS: POLYETHYLENE GLYCOL 3350 17 GM/Dose PACKET PO SCH ×2 (10:44→17:59)
--- NOTE | 2018-02-16 12:07 | CARD ---
APPROVED REPORT Date of service: 02/16/2018 EKG Measurement Heart [id number] <Conclusion> Sinus tachycardia Nonspecific ST and T wave abnormality Abnormal ECG
--- NOTE | 2018-02-16 14:08 | CON ---
DATE: 02/16/2018 HISTORY OF PRESENT ILLNESS: This is a 72-year-old male with past medical history of stroke, dementia and head and neck cancer and dysphagia. Came to the emergency room. The patient also has a permanent pacemaker, AFib. Came with possible seizure. The patient is on Keppra twice a day. The patient is very drowsy, not following simple commands and just say yes or no. Spontaneous movement of the extremities noted. Deep tendon reflexes 1+. Plantars are downgoing. Sensory appears intact. Cerebellar, gait deferred. IMPRESSION: A 72-year-old male with past medical history of stroke, permanent pacemaker, atrial fibrillation and and chronic obstructive pulmonary disease. The patient appears to have a breakthrough seizure. He is on Keppra 500 twice a day. Continue present management. We will follow up. Javi Rivera MD
--- NOTE | 2018-02-16 16:24 | PQF ---
PROVIDER RESPONSE TEXT: CHF secondary to aTRIAL FIBRILATOPN, AND DIASTOL;IC DYSFUNCTION. REVIEWER QUERY TEXT: CHF Acuity and Type Congestive Heart Failure is documented in the Medical Record. Please document the type and acuity (in cludes probable or suspected) Such as: Type: -- Systolic -- Diastolic -- Combined -- Other, please specify Acuity: -- Acute -- Chronic -- Acute on chronic -- Other, please specify Also please document the underlying cause of the CHF (includes probable or suspected) The patient's Clinical Indicators include: This patient with hx CHF was admitted with swelling left arm. Cardiology consult (done by Suzan Ceja APN) notes that patient is being evaluated for CHF and a lthough CXR negative, BNP elevated and patient has LVH and EF 25% with severely impaired systolic dys function. Patient started on po Lasix. Please document specifically if patient has CHF and whether acute or chronic. Query created by: Cookie Deshpande on 02/16/2018 8:00 AM Electronically signed by: Fatoumata Huynh 02/16/2018 4:21 PM
--- NOTE | 2018-02-16 17:12 | CP.PCM.PCO ---
Physician Communication Note - Physician Communication Note Physician Communication Note: breathpatrick sz. c/w keppra 500mg bid. no need to increase yet.
--- NOTE | 2018-02-16 21:51 | PN ---
DATE: 02/16/2018 PULMONARY PROGRESS NOTE REFERRING PHYSICIAN: Mariana Fernandez MD SUBJECTIVE: The patient is lying in the bed, sleepy, arousable. Night was unremarkable. No cough. No sputum production. No hemoptysis. No hematemesis. No hematuria. No diarrhea reported. OBJECTIVE: GENERAL: In no acute distress. VITAL SIGNS: Temperature is 98, heart rate 92, respiratory rate is 18, blood pressure 116/87, pulse ox 97% on room air. HEENT: Moist mucous membrane. No ulcer or thrush noted. NECK: Supple. No JVD. LUNGS: Have a fair airflow with rhonchi. HEART: S1 and S2. ABDOMEN: Soft, nontender. No organomegaly. G-tube area looks okay. EXTREMITIES: No edema. NEUROLOGICAL: Sleepy, arousable. MEDICATIONS: He is on hydralazine 10 mg every 6 hours p.r.n., lorazepam 1 mg was given today, also lorazepam 1 mg every 6 hours p.r.n. for seizure activity, Brovana 15 mcg inhaled twice a day, Cardizem 30 mg four times a day, Eliquis 5 mg twice a day, Keppra 500 mg twice a day, Lasix 20 mg daily, metoprolol tartrate 100 mg twice a day, Mag-Oxide 400 mg twice a day, MiraLax 17 g twice a day, morphine 2 mg every 6 hours p.r.n., Pepcid 40 mg daily, Pulmicort inhaled twice a day, Toradol 15 mg IV every 4 hours for pain. LABORATORY DATA: Shows hemoglobin 12.1, hematocrit 37.9, WBC 7.8, platelet is 340. Sodium 135, potassium 3.8, chloride 99, bicarbonate is 24, BUN 15, creatinine 0.7. Glucose 106. Calcium is 8.7, magnesium 1.7, iron is 34. TSH 4.3. DIAGNOSTIC DATA: CAT scan of the head was done, show severe chronic encephalomalacia in both hemispheres, no acute intracranial finding. PLAN: Rapid response was called this morning. Had a witnessed seizures, seen by Neurology on antiseizure medication. Continue bronchodilator. Keep head at 45 degrees. Avoid aspiration. Thank you and we will follow with you. Fatoumata Cruz MD [facility] # [id number]
--- NOTE | 2018-02-17 03:20 | PN ---
DATE: 02/16/2018 SUBJECTIVE: Patient is a 72-year-old male. Patient was seen and examined on the bedside on 02/16/2018. Patient was seen on 02/16/2018, looking comfortable. Episodes of seizure today in the morning. No cough. No shortness of breath. No nausea, vomiting, or diarrhea. No hematuria or hematochezia. Still has swelling of the left upper extremity. Discussion done with house physician and staff. Patient was seen by neurologist. PHYSICAL EXAMINATION: VITAL SIGNS: Temperature 98, heart rate 92, respiratory rate 18, blood pressure 116/87, pulse oximetry 97% on room air. HEENT: Head: Normocephalic, atraumatic. Eyes: PERRLA. Extraocular muscles intact. Conjunctivae clear. Nose patent. NECK: Supple. No carotid bruit, JVD, or thyromegaly. CHEST: Bilaterally symmetrical. HEART: S1 and S2 positive. LUNGS: Clear to auscultation. ABDOMEN: Soft and nontender. No organomegaly. G-tube area looks okay. EXTREMITIES: Lower extremities, no edema, no cyanosis. NEUROLOGIC: Patient is awake and alert. MEDICATIONS: Hydralazine, lorazepam, Brovana, Cardizem, Eliquis, Keppra, Lasix, metoprolol, magnesium oxide, MiraLax, morphine, Pepcid, Pulmicort, Toradol. LABORATORY DATA: Hemoglobin 12.1, hematocrit 37.9, white blood cells 7.8, platelets 340. Sodium 135, potassium 3.8, BUN 15, creatinine 0.7. TSH 4.3. ASSESSMENT AND PLAN: Mr. Geo Ewing is a 72-year-old male with a history of seizures. Today, he has seizure. Rapid response was called this morning, had witnessed seizures. Seen by neurologist and house physician. Patient is on antiseizure medications. Continue watching. Patient is on seizure precautions. CAT scan of the head was done, shows severe chronic encephalomalacia in both hemispheres. No acute intracranial findings. History of cancer of the head and neck; history of dysphagia, having the percutaneous endoscopic gastrostomy tube; history of anemia; hypertension; cerebrovascular accident; left-sided weakness; pulmonary hypertension; atrial fibrillation, on Eliquis; tachy-destiny arrhythmia with cardiomyopathy, left ventricular ejection fraction is 25%. Gastrointestinal and deep venous thrombosis prophylaxes. Repeat labs. We will follow up. Mariana Fernandez MD
--- NOTE | 2018-02-17 07:54 | CP.PCM.PN ---
Subjective - Date & Time of Evaluation Date of Evaluation: 02/17/18 Time of Evaluation: 06:30 - Subjective Subjective: Awake, no distress, no complaints Reason for consultation: Cardiac evaluation for congestive heart failure, admitted due to left arm swelling, history of CVA, left sided weakness, atrial fibrillation, PPM Seen and examined by me and Dr. Torres Objective - Vital Signs/Intake and Output Vital Signs (last 24 hours): Temp Pulse Resp BP Pulse Ox 98.0 F 100 H 20 122/63 100 02/17/18 05:51 02/17/18 05:51 02/17/18 05:51 02/17/18 05:51 02/17/18 05:51 Intake and Output: 02/17/18 02/17/18 06:59 18:59 Intake Total 300 Balance 300 - Medications Medications: Current Medications Apixaban (Eliquis) 5 mg PO BID [facility] PRN Reason: Protocol Last Admin: 02/16/18 17:58 Dose: 5 mg Arformoterol Tartrate (Brovana) 15 mcg IH [id number] [facility] Last Admin: 02/16/18 20:24 Dose: 15 mcg Budesonide (Pulmicort Respules) 0.5 mg IH [id number] [facility] Last Admin: 02/16/18 20:24 Dose: 0.5 mg Diltiazem HCl (Cardizem) 30 mg PO QID [facility] Last Admin: 02/16/18 22:32 Dose: 30 mg Famotidine (Pepcid) 40 mg PO HS [facility] Last Admin: 02/16/18 22:32 Dose: 40 mg Furosemide (Lasix) 20 mg PO DAILY [facility] Last Admin: 02/16/18 10:21 Dose: 20 mg Hydralazine HCl (Apresoline) 10 mg IVP Q6 PRN PRN Reason: elevated blood pressure Last Admin: 02/15/18 17:16 Dose: 10 mg Ketorolac Tromethamine (Toradol) 15 mg IVP Q4H [facility] Last Admin: 02/17/18 02:44 Dose: Not Given Levetiracetam (Keppra) 500 mg PO Q12 [facility] Last Admin: 02/16/18 22:35 Dose: 500 mg Lorazepam (Ativan) 1 mg IVP ONCE PRN; Protocol PRN Reason: Seizure activity Last Admin: 02/16/18 08:29 Dose: 1 mg Lorazepam (Ativan) 1 mg IVP Q6H PRN; Protocol PRN Reason: Seizure activity Magnesium Oxide (Mag-Ox) 400 mg PO BID [facility] Last Admin: 02/16/18 17:58 Dose: 400 mg Metoprolol Tartrate (Lopressor) 100 mg PO BID [facility] Last Admin: 02/16/18 17:59 Dose: 100 mg Morphine Sulfate (Morphine) 2 mg IVP Q6H PRN PRN Reason: Pain, severe (8-10) Last Admin: 02/15/18 16:11 Dose: 2 mg Polyethylene Glycol (Miralax) 17 gm PO BID [facility] Last Admin: 02/16/18 17:59 Dose: 17 gm - Labs Labs: 02/16/18 06:30 02/16/18 06:30 PT 15.9 SECONDS (9.4-12.5) H 02/14/18 16:23 INR 1.39 02/14/18 16:23 APTT 34.8 Seconds (25.1-36.5) 02/14/18 16:23 - Constitutional Appears: No Acute Distress - Eye Exam Eye Exam: Normal appearance - ENT Exam ENT Exam: Mucous Membranes Moist - Respiratory Exam Respiratory Exam: Decreased Breath Sounds, Clear to Ausculation Bilateral, NORMAL BREATHING PATTERN - Cardiovascular Exam Cardiovascular Exam: REGULAR RHYTHM, +S1, +S2 Additional comments: normal sinus rhthym PPM - GI/Abdominal Exam GI & Abdominal Exam: Soft, Normal Bowel Sounds Additional comments: PEG - Extremities Exam Additional comments: left arm swelling left sided weakness 2-3+ leg edema - Neurological Exam Neurological Exam: Alert, Awake - Psychiatric Exam Psychiatric exam: Flat Affect - Skin Skin Exam: Warm Assessment and Plan - Assessment and Plan (Free Text) Assessment: A 72 year old emaciated male who was brought to the ER due to left arm swelling. History of hypertension, CVA, left sided weakness,pulmonary hypertension,Atrial fibrillation on Eliquis, PPM for tachycardia-bradycardia syndrome. cardiomyopathy LVEF- 25%throat cancer, history of PEG placement, left inguinal hernia, incontinence,depression,seizures,COPD,anemia, liver cirrhosis, depression. Left arm negative for DVT.Consult called to evaluate for congestive heart failure. Chest X ray normal with no congestion, mild cardiomegaly. Denies shortness of breath, however BNP elevated. EKG sinus tachycardia with left ventricular hypertrophy, Left forearm swelling negative for DVT. X ray of left forearm negative for fracture.08/01/17- ECHO- Severely impaired systolic function, LVEF 25%, Mild MR/TR, Moderate pulmonary hypertension. Acute on chronic diastolic congestive heart failure due to low ejection fraction (cardiomyopathy ) and atrial fibrillation. 08/03/17- PPM insertion VVIR [employer] (Tachycardia/Bradycardia Syndrome). Post [employer]NEY yesterday due to seizure like activity. Neuro on consult. on Keppra. Plan: No distress,Denies shortness of breath Post [employer]NEY yesterday for seizure like activity Neuro on consult, on Keppra Controlled heart rate and blood pressure Telemetry sinus rhythm Electrolytes within normal limits On Eliquis 5 mg BID, Cardizem 30 mg QID,Hydralazine 10 mg PRN, Keppra 500 mg every 12 hours Lasix 20 mg daily, Lopressor 100 mg BID, Continue current medications Continue current treatment Will follow up Plan and treatment discussed with Dr. Torres
[2018-02-17] MEDS: Budesonide 0.5 mg/2 ml Inhal Susp UD IH SCH ×2 (08:19→19:45)
[2018-02-17] MEDS: Arformoterol 15 mcg/2 ml Inh Sol IH SCH ×2 (08:19→19:45)
--- NOTE | 2018-02-17 09:12 | PCM.EEG ---
Electroencephalogram Report - Electroencephalogram Report Procedure Date: 02/16/18 Interpretation: Clinical Information: Dementia. Technical Information: This was a 21 -channel EEG, 1-channel EKG routine EEG performed using an [employer] machine. Electrodes were applied using the 10/20 international placement system. EEG Detail: During active states, the EEG contained symmetric 10-20 Hz ,20-30 uV activity seen bi-frontally. . During resting wakefulness there was a symmetric posterior dominant rhythm at 7.5 Hz, 30-50 uV, which was reactive to eye opening and closing. . Drowsiness was associated with fragmentation of the posterior dominant rhythm and with slow roving eye movements. There was intermittent bi frontal slowing. Hyperventilation was not performed. Photic stimulation was performed and there were no changes on the record. Interictal activity; none. Focal abnormality; none Impression: This is an abnormal EEG record that demonstrate the presence of a mild non specific diffuse disturbance of cortical activity, this is keeping with a diffuse saldnaa matter dysfunction, these findings re not specific. Low amplitude record, this is a non specific finding. No seizures seen.
[2018-02-17] MEDS: POLYETHYLENE GLYCOL 3350 17 GM/Dose PACKET PO SCH ×2 (09:51→17:42)
[2018-02-17] MEDS: Magnesium Oxide 400 mg Tab UD PO SCH ×2 (09:52→17:41)
--- NOTE | 2018-02-17 14:31 | PN ---
DATE: 02/17/2018 NEUROLOGY FOLLOWUP CHIEF COMPLAINT: Follow up for breakthrough seizure. SUBJECTIVE: The patient is emaciated looking. His continuous EEG showed mild bilateral cerebral dysfunction, no evidence of epileptiform activity, he is currently on Keppra for seizure prophylaxis. No further seizure breakthrough and his breakthrough seizure was likely secondary to CHF exacerbation and poor sleep hygiene and hypertensive episodes. PAST MEDICAL HISTORY: History of bilateral cerebrovascular accidents associated with left frontal and right frontoparietal as well as temporal areas with history of left internal carotid artery stenosis; ____ atrial fibrillation, on Eliquis; CHF; COPD; severe pulmonary hypertension; cardiomyopathy with less ejection fraction of 25%, throat cancer, history of PEG placement, right inguinal hernia, seizures from encephalomalacia bilaterally from CVAs who is being admitted for possible seizure exacerbation and Cardiology is on board; history of pulmonary hypertension and low EF of 25%, breakthrough seizures and continuous EEG showed no evidence of any epileptiform activities, there is chronic slowing. PHYSICAL EXAMINATION: NEUROLOGIC: Alert and oriented to person and place, not much of month or year. He has cognitive impairment. Poor attention span and slow thought process. Recall after 5 minutes is 0/3. Cranial nerves 11 through XII intact. Motor exam: Spastic bilateral weakness, mostly in the right when compared to the left,4/5; bilateral CVAs. Sensory exam: Evidence of neuropathy. DTRs are 1+ throughout. Coordination and gait is deferred. At this time, we recommend to keep him on his Keppra, keep systolic blood pressures between 130s-140s and diastolic 70s-80s. Continue with monitoring of electrolytes and correct accordingly and PT/OT evaluation and Cardiology followup. Thank you for this followup. Sunil Rivera MD
--- NOTE | 2018-02-17 20:46 | PN ---
DATE: 02/17/2018 PULMONARY PROGRESS NOTE SUBJECTIVE: The patient is lying in bed, feels okay, night was unremarkable. No cough. No sputum. No hemoptysis. No hematemesis. No hematuria or diarrhea reported. PHYSICAL EXAMINATION: VITAL SIGNS: Temperature 98.9, pulse 102, blood pressure 133/88, respiratory rate 19. GENERAL: Lying in bed, sleepy, arousable. No acute distress. HEENT: Moist mucous membranes. NECK: Supple. No JVD. LUNGS: Fair airflow. HEART: S1 and S2. ABDOMEN: Soft, nontender. No organomegaly. G-tube site looks okay. EXTREMITIES: No edema. NEUROLOGIC: Sleepy, arousable. Follows simple commands. LABORATORY DATA: Results reviewed. No new labs since yesterday. MEDICATIONS: No new medications added since yesterday. IMPRESSION AND PLAN: Chronic obstructive lung disease, throat cancer, cardiomyopathy, ejection fraction 25%. Continue inhaled bronchodilators, keep head elevated at 45 degrees, aspiration precaution, on diuretics. Gastric prophylaxis, seizure precaution, pain management. This patient was examined with Dr. Cruz, and discussed assessment and plan as described above. Thank you for this consult and we will follow with you. Aruna Pang APN Fatoumata Cruz MD JAMES
--- NOTE | 2018-02-18 02:52 | PN ---
DATE: 02/17/2018 SUBJECTIVE: The patient is 72-year-old male. The patient was seen and examined at bedside on 02/17/2018, looking comfortable, sleepy, arousable. No fever, no chills. No nausea, vomiting, or diarrhea. No hematuria, no hematochezia. No more seizures. PHYSICAL EXAMINATION: VITAL SIGNS: Temperature 98.9, pulse 102, blood pressure 133/88, respiratory rate 19. HEENT: Head normocephalic, atraumatic. Eyes: PERRLA, extraocular muscles intact. Conjunctivae clear. Nose patent. Mucous membranes moist, NECK: Supple. No carotid bruit. No JVD, thyromegaly. CHEST: Bilaterally symmetrical. HEART: S1, S2 positive. LUNGS: Clear to auscultation. ABDOMEN: Soft. Bowel sounds present. No organomegaly. EXTREMITIES: No edema, no cyanosis. NEUROLOGIC: The patient is sleepy, arousable. Follows simple commands. LABORATORY DATA: We do not have recent labs today, but I reviewed old labs. Sugar 106, magnesium 1.7, iron 34. MEDICATIONS: Hydralazine, Ativan, Brovana, Cardizem, Eliquis, Keppra, Lasix, Lopressor, magnesium oxide, MiraLax, morphine, Pepcid, Pulmicort, and Toradol. ASSESSMENT AND PLAN: Mr. Geo Ewing is a 72-year-old male with history of seizures, has cognitive impairment, history of cerebrovascular accident. According to neurologist, continue Keppra, bedside physical and occupational therapy. Seen by Cardiology and Pulmonary also. History of chronic obstructive pulmonary disease, throat cancer, cardiomyopathy, ejection fraction 25%. Continue with inhaled bronchodilators, aspiration precautions, gastric prophylaxis, seizure precaution, pain management. Repeat labs. We will follow. Mariana Fernandez MD
--- NOTE | 2018-02-18 07:08 | CP.PCM.PN ---
Subjective - Date & Time of Evaluation Date of Evaluation: 02/18/18 Time of Evaluation: 06:20 - Subjective Subjective: Sleepin but easily awaken,no complaints, feels okay, no distress Reason for consultation: Cardiac evaluation for congestive heart failure, admitted due to left arm swelling, history of CVA, left sided weakness, atrial fibrillation, PPM Seen and examined by me and Dr. Torres Objective - Vital Signs/Intake and Output Vital Signs (last 24 hours): Temp Pulse Resp BP Pulse Ox 98.2 F 100 H 18 115/70 98 02/18/18 06:00 02/18/18 06:00 02/18/18 06:00 02/18/18 06:00 02/18/18 06:00 Intake and Output: 02/18/18 02/18/18 06:59 18:59 Intake Total 0 Balance 0 - Medications Medications: Current Medications Apixaban (Eliquis) 5 mg PO BID [facility] PRN Reason: Protocol Last Admin: 02/17/18 17:41 Dose: 5 mg Arformoterol Tartrate (Brovana) 15 mcg IH [id number] [facility] Last Admin: 02/17/18 19:45 Dose: 15 mcg Budesonide (Pulmicort Respules) 0.5 mg IH [id number] [facility] Last Admin: 02/17/18 19:45 Dose: 0.5 mg Diltiazem HCl (Cardizem) 30 mg PO QID [facility] Last Admin: 02/17/18 21:12 Dose: 30 mg Famotidine (Pepcid) 40 mg PO HS [facility] Last Admin: 02/17/18 21:09 Dose: 40 mg Furosemide (Lasix) 20 mg PO DAILY [facility] Last Admin: 02/17/18 09:51 Dose: 20 mg Hydralazine HCl (Apresoline) 10 mg IVP Q6 PRN PRN Reason: elevated blood pressure Last Admin: 02/15/18 17:16 Dose: 10 mg Ketorolac Tromethamine (Toradol) 15 mg IVP Q6H [facility] Last Admin: 02/18/18 05:51 Dose: Not Given Levetiracetam (Keppra) 500 mg PO Q12 [facility] Last Admin: 02/17/18 21:05 Dose: 500 mg Lorazepam (Ativan) 1 mg IVP ONCE PRN; Protocol PRN Reason: Seizure activity Last Admin: 02/16/18 08:29 Dose: 1 mg Lorazepam (Ativan) 0.5 mg IVP Q8H PRN; Protocol PRN Reason: Seizure activity Magnesium Oxide (Mag-Ox) 400 mg PO BID [facility] Last Admin: 02/17/18 17:41 Dose: 400 mg Metoprolol Tartrate (Lopressor) 100 mg PO BID [facility] Last Admin: 02/17/18 17:41 Dose: 100 mg Polyethylene Glycol (Miralax) 17 gm PO BID [facility] Last Admin: 02/17/18 17:42 Dose: 17 gm - Labs Labs: 02/16/18 06:30 02/16/18 06:30 PT 15.9 SECONDS (9.4-12.5) H 02/14/18 16:23 INR 1.39 02/14/18 16:23 APTT 34.8 Seconds (25.1-36.5) 02/14/18 16:23 - Constitutional Appears: No Acute Distress - Eye Exam Eye Exam: Normal appearance - ENT Exam ENT Exam: Mucous Membranes Dry - Respiratory Exam Respiratory Exam: Decreased Breath Sounds, Clear to Ausculation Bilateral, NORMAL BREATHING PATTERN - Cardiovascular Exam Cardiovascular Exam: Irregular Rhythm, +S1, +S2 Additional comments: Aflutter 100's Telemetry PPM - GI/Abdominal Exam GI & Abdominal Exam: Soft, Normal Bowel Sounds Additional comments: PEG - Extremities Exam Extremities Exam: Normal Capillary Refill Additional comments: left sided weakness Left arm swelling 1-2+ - Neurological Exam Neurological Exam: Alert, Awake, Oriented x3 - Psychiatric Exam Psychiatric exam: Normal Affect - Skin Skin Exam: Dry, Warm Assessment and Plan - Assessment and Plan (Free Text) Assessment: A 72 year old emaciated male who was brought to the ER due to left arm swelling. History of hypertension, CVA, left sided weakness,pulmonary hypertension,Atrial fibrillation on Eliquis, PPM for tachycardia-bradycardia syndrome. cardiomyopathy LVEF- 25%throat cancer, history of PEG placement, left inguinal hernia, incontinence,depression,seizures,COPD,anemia, liver cirrhosis, depression. Left arm negative for DVT.Consult called to evaluate for congestive heart failure. Chest X ray normal with no congestion, mild cardiomegaly. Denies shortness of breath, however BNP elevated. EKG sinus tachycardia with left ventricular hypertrophy, Left forearm swelling negative for DVT. X ray of left forearm negative for fracture.08/01/17- ECHO- Severely impaired systolic function, LVEF 25%, Mild MR/TR, Moderate pulmonary hypertension. Acute on chronic diastolic congestive heart failure due to low ejection fraction (cardiomyopathy ) and atrial fibrillation. 08/03/17- PPM insertion VVIR [employer] (Tachycardia/ Bradycardia Syndrome). 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 Neuro on consult. on Keppra. Today, Stable, no episode of seizures. Plan: No distress,Denies shortness of breath, no seizures Cardiac status stable Controlled blood pressure Telemetry Afib/Aflutter controlled rate Neuro on consult, on Keppra On Eliquis 5 mg BID, Cardizem 30 mg QID,Hydralazine 10 mg PRN, Keppra 500 mg every 12 hours Lasix 20 mg daily, Lopressor 100 mg BID, Continue current medications Continue current treatment Will follow up Plan and treatment discussed with Dr. Torres
[2018-02-18] MEDS: Arformoterol 15 mcg/2 ml Inh Sol IH SCH ×2 (08:00→20:01)
[2018-02-18] MEDS: Budesonide 0.5 mg/2 ml Inhal Susp UD IH SCH ×2 (08:00→20:01)
[2018-02-18 08:10] LABS: HEMOGLOBIN 11.1 g/dL (14.0-18.0); MEAN CELL VOLUME 81.3 fl (80.0-105.0); MEAN CORPUSCULAR HEMOGLOBIN 25.3 pg (25.0-35.0); MEAN CORPUSCULAR HGB CONC 31.2 g/dl (31.0-37.0); MEAN PLATELET VOLUME 8.8 fl (7.0-11.0); RBC 4.38 10^6/uL (3.5-6.1); RED CELL DISTRIBUTION WIDTH 15.4 % (11.5-14.5); WHITE BLOOD COUNT 7.1 10^3/ul (4.5-11.0)
[2018-02-18] MEDS: Magnesium Oxide 400 mg Tab UD PO SCH ×2 (09:16→18:02)
[2018-02-18] MEDS: POLYETHYLENE GLYCOL 3350 17 GM/Dose PACKET PO SCH ×2 (09:16→18:03)
[2018-02-18 09:57] LABS: ALB/GLOB RATIO 0.8 (1.1-1.8); ALBUMIN 3.1 g/dL (3.0-4.8); ALT/SGPT 35 U/L (7-56); AST/SGOT 50 U/L (17-59); BLOOD UREA NITROGEN 12 mg/dL (7-21); CALCIUM 8.7 mg/dL (8.4-10.5); GFR NON-AFRICAN AMERICAN > 60
--- NOTE | 2018-02-18 18:49 | PN ---
DATE: 02/18/2018 PULMONARY PROGRESS NOTE REFERRING PHYSICIAN: Mariana Fernandez MD SUBJECTIVE: He is lying in bed, head up at 45 degrees. No headache. No rhinitis. No nausea. No vomiting. No diarrhea. No leg pain or leg swelling. PHYSICAL EXAMINATION: GENERAL: In no acute distress. VITAL SIGNS: Temperature is 98, heart rate is 101, respiratory rate is 20, blood pressure 127/86, pulse ox 98% on room air. HEENT: Moist mucous membrane. No ulcer or thrush noted. NECK: Supple. No JVD. LUNGS: Have a fair airflow with rhonchi. HEART: S1 and S2. ABDOMEN: Soft, nontender. No organomegaly. G-tube area looks okay. EXTREMITIES: There is no edema. NEUROLOGICAL: Awake and alert. Follows simple command. MEDICATIONS: He is on hydralazine 10 mg every 6 hours p.r.n., lorazepam 1 mg was given yesterday, also 0.5 mg every 8 hours p.r.n. for seizure, Brovana inhaled twice a day, diltiazem 30 mg q.i.d., Eliquis 5 mg twice a day, Keppra 500 mg twice a day, Lasix 20 mg daily, metoprolol tartrate 100 mg twice a day, magnesium oxide 400 mg twice a day, MiraLax 17 g twice a day, Pepcid 40 mg daily, Pulmicort inhaled twice a day, Toradol 15 mg every 6 hours p.r.n. LABORATORY DATA: Shows hemoglobin 11.1, hematocrit 35.6, WBC is 7.1, platelet is 327. Blood sugar 106. IMPRESSION AND PLAN: Chronic obstructive lung disease, history of head and neck cancer, cardiomyopathy, ejection fraction is 25%, seizure disorder, oropharyngeal dysphagia, requiring G-tube, malnourished, pulmonary point of view is doing okay, probably his whole change in mental status and weakness are secondary to his recurrent seizure, seen by Neurology, on anti-seizure medication now. Continue bronchodilator, gastric prophylaxis, deep venous thrombosis prophylaxis. Discharge planning. Thank you and we will follow with you. Fatoumata Cruz MD [facility] # [id number]
--- NOTE | 2018-02-18 23:24 | PN ---
DATE: 02/18/2018 SUBJECTIVE: The patient was seen and examined at bedside on 02/18/2018, looking comfortable. No nausea, vomiting, or diarrhea. No hematuria, no hematochezia. No headache, no dizziness. No chest pain, no palpitations. PHYSICAL EXAMINATION: VITAL SIGNS: Temperature 98, heart rate 101, respiratory rate 20, blood pressure 127/86, pulse oximetry is 98% on room air. HEENT: Head normocephalic, atraumatic. Eyes: PERRLA, extraocular muscles intact. Conjunctivae clear. Nose patent. Mucous membranes moist, NECK: Supple. No carotid bruit. No JVD or thyromegaly. CHEST: Bilaterally symmetrical. HEART: S1, S2 positive. LUNGS: Clear to auscultation. ABDOMEN: Soft. Bowel sounds present. No organomegaly. EXTREMITIES: No edema, no cyanosis. NEUROLOGIC: The patient is awake, alert. Follows simple commands. MEDICATIONS: Hydralazine, lorazepam, Brovana, diltiazem, Eliquis, Keppra, Lasix, metoprolol, magnesium, MiraLax, Pepcid, Pulmicort, Toradol. LABORATORY DATA: Hemoglobin 11.1, hematocrit 35.6, white blood cells 7.1, platelets 327. Blood sugar 106. ASSESSMENT AND PLAN: Mr. Geo Ewing is a 72-year-old male with chronic obstructive pulmonary disease, history of head and neck cancer, history of dysphagia, has PEG tube, cardiomegaly, ejection fraction 25%, seizure disorder, malnutrition, urinary tract infection, the patient is bedridden, anorexia, history of recurrent seizures. Neurologist is on the case. Gastrointestinal and deep vein thrombosis prophylaxes. Repeat labs. Bedside physical therapy. We will follow up. Mariana Fernandez MD
[2018-02-19 05:15] VITALS: O2SAT 100
--- NOTE | 2018-02-19 06:48 | CP.PCM.PN ---
Subjective - Date & Time of Evaluation Date of Evaluation: 02/19/18 Time of Evaluation: 06:10 - Subjective Subjective: Awake,,no complaints, feels okay, no distress Reason for consultation: Cardiac evaluation for congestive heart failure, admitted due to left arm swelling, history of CVA, left sided weakness, atrial fibrillation, PPM Seen and examined by me and Dr. Huynh Objective - Vital Signs/Intake and Output Vital Signs (last 24 hours): Temp Pulse Resp BP Pulse Ox 98.2 F 100 H 20 133/71 100 02/19/18 05:46 02/19/18 06:00 02/19/18 05:46 02/19/18 05:46 02/19/18 05:46 Intake and Output: 02/18/18 02/19/18 18:59 06:59 Intake Total 0 220 Balance 0 220 - Medications Medications: Current Medications Apixaban (Eliquis) 5 mg PO BID [facility] PRN Reason: Protocol Last Admin: 02/18/18 18:02 Dose: 5 mg Arformoterol Tartrate (Brovana) 15 mcg IH [id number] [facility] Last Admin: 02/18/18 20:01 Dose: 15 mcg Budesonide (Pulmicort Respules) 0.5 mg IH [id number] [facility] Last Admin: 02/18/18 20:01 Dose: 0.5 mg Diltiazem HCl (Cardizem) 30 mg PO QID [facility] Last Admin: 02/18/18 22:55 Dose: 30 mg Famotidine (Pepcid) 40 mg PO HS [facility] Last Admin: 02/18/18 22:55 Dose: 40 mg Furosemide (Lasix) 20 mg PO DAILY [facility] Last Admin: 02/18/18 09:16 Dose: 20 mg Hydralazine HCl (Apresoline) 10 mg IVP Q6 PRN PRN Reason: elevated blood pressure Last Admin: 02/15/18 17:16 Dose: 10 mg Ketorolac Tromethamine (Toradol) 15 mg IVP Q6H [facility] Last Admin: 02/19/18 05:48 Dose: Not Given Levetiracetam (Keppra) 500 mg PO Q12 [facility] Last Admin: 02/18/18 22:55 Dose: 500 mg Lorazepam (Ativan) 1 mg IVP ONCE PRN; Protocol PRN Reason: Seizure activity Last Admin: 02/16/18 08:29 Dose: 1 mg Lorazepam (Ativan) 0.5 mg IVP Q8H PRN; Protocol PRN Reason: Seizure activity Magnesium Oxide (Mag-Ox) 400 mg PO BID [facility] Last Admin: 02/18/18 18:02 Dose: 400 mg Metoprolol Tartrate (Lopressor) 100 mg PO BID [facility] Last Admin: 02/18/18 18:03 Dose: 100 mg Polyethylene Glycol (Miralax) 17 gm PO BID [facility] Last Admin: 02/18/18 18:03 Dose: Not Given - Labs Labs: 02/18/18 07:00 02/16/18 06:30 PT 15.9 SECONDS (9.4-12.5) H 02/14/18 16:23 INR 1.39 02/14/18 16:23 APTT 34.8 Seconds (25.1-36.5) 02/14/18 16:23 - Constitutional Appears: No Acute Distress - Eye Exam Eye Exam: Normal appearance - ENT Exam ENT Exam: Mucous Membranes Dry - Respiratory Exam Respiratory Exam: Decreased Breath Sounds, Clear to Ausculation Bilateral, NORMAL BREATHING PATTERN - Cardiovascular Exam Cardiovascular Exam: +S1, +S2 Additional comments: PPM - GI/Abdominal Exam GI & Abdominal Exam: Soft, Normal Bowel Sounds Additional comments: PEG - Extremities Exam Additional comments: left side weakness Left arm swelling better 1+edema - Neurological Exam Neurological Exam: Alert, Awake, Oriented x3 - Psychiatric Exam Psychiatric exam: Normal Affect - Skin Skin Exam: Dry, Warm Assessment and Plan - Assessment and Plan (Free Text) Assessment: A 72 year old emaciated male who was brought to the ER due to left arm swelling. History of hypertension, CVA, left sided weakness,pulmonary hypertension,Atrial fibrillation on Eliquis, PPM for tachycardia-bradycardia syndrome. cardiomyopathy LVEF- 25%throat cancer, history of PEG placement, left inguinal hernia, incontinence,depression,seizures,COPD,anemia, liver cirrhosis,depression. Left arm negative for DVT.Consult called to evaluate for congestive heart failure. Chest X ray normal with no congestion, mild cardiomegaly. Denies shortness of breath, however BNP elevated. EKG sinus tachycardia with left ventricular hypertrophy, Left forearm swelling negative for DVT. X ray of left forearm negative for fracture.08/01/17- ECHO- Severely impaired systolic function,LVEF 25%, Mild MR/TR, Moderate pulmonary hypertension. Acute on chronic diastolic congestive heart failure due to low ejection fraction (cardiomyopathy) and atrial fibrillation. 08/03/17- PPM insertion VVIR Medtr[employer] (Tachycardia/Bradycardia Syndrome). 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 Neuro on consult. on Keppra. Today, Stable, no episode of seizures. Plan: Awake, no distress No episode of siezures Cardiac status stable Controlled blood pressure Telemetry Aflutter controlled rate 90-100's On Eliquis 5 mg BID, Cardizem 30 mg QID,Hydralazine 10 mg PRN, Keppra 500 mg every 12 hours Lasix 20 mg daily, Lopressor 100 mg BID, Continue current medications Continue current treatment Physical therapy Will follow up Plan and treatment discussed with Dr. Huynh
[2018-02-19] MEDS: Budesonide 0.5 mg/2 ml Inhal Susp UD IH SCH ×2 (07:47→20:06)
[2018-02-19] MEDS: Arformoterol 15 mcg/2 ml Inh Sol IH SCH ×2 (07:47→20:06)
--- NOTE | 2018-02-19 08:49 | PN ---
DATE: 02/17/2018 LOCATION: The patient in room 269, bed 1. The patient's progress note already dictated by Suzan Ceja APN. SUBJECTIVE: The patient, who has multiple medical problems, was admitted with left arm swelling, history of hypertension, CVA, left-sided weakness, pulmonary hypertension, atrial fibrillation, on Eliquis, status post permanent pacemaker insertion, cardiomyopathy, ejection fraction 25%, throat cancer, history of PEG placement, left inguinal hernia, incontinence of urine, depression, seizure disorder, COPD, liver cirrhosis, depression. The patient developed seizure yesterday. Today, the patient is lying flat in bed without any respiratory distress. The patient had echo on 08/01/2017, which shows severely impaired systolic function with LV ejection of 25%, mild MR, mild TR, moderate pulmonary hypertension, cardiomyopathy. PLAN: The patient does not seem to be in any acute distress and labs are also stable. We will continue diltiazem 30 mg p.o. four times daily, Eliquis 5 b.i.d., Fosamax 20 mg p.o. daily, metoprolol tartrate 100 mg b.i.d., mag oxide 400 mg b.i.d. The patient received Ativan before, mag oxide 400 mg b.i.d., Keppra 500 mg p.o. every 12 hours. Since yesterday, the patient had no seizure since on Keppra. He is known to have seizures in the past, so clinically cardiac status seems to be stable at this point. We will continue present therapy. We will monitor with you. Fatoumata Torres MD
--- NOTE | 2018-02-19 09:24 | PN ---
DATE: 02/16/2018 This is an addendum to the initial progress note dictated by nurse practitioner. REASON FOR ADDENDUM: Patient had rapid response seizure, awake and alert. Still postictal. Going for CAT scan. Hemodynamically stable. History of AFib on Eliquis. Continue Cardizem 30 q.i.d. and discontinue IV fluids. We will get a CAT scan stat. If the CAT scan is negative, we will continue Eliquis for now. We will follow the CAT scan. Patient has AFib, chronic history of pacemaker, history of PEG placement. Thank you, Dr. Fernandez, for providing us the opportunity in taking care of the patient, Geo Ewing. Fatoumata Huynh MD
[2018-02-19] MEDS: POLYETHYLENE GLYCOL 3350 17 GM/Dose PACKET PO SCH ×2 (10:01→17:34)
[2018-02-19] MEDS: Magnesium Oxide 400 mg Tab UD PO SCH ×2 (10:01→17:32)
--- NOTE | 2018-02-19 13:22 | PN ---
DATE: 02/19/2018 NEUROLOGY FOLLOWUP CHIEF COMPLAINT: Followup for breakthrough seizures. SUBJECTIVE: The patient is emaciated looking. His continuous EEG showed mild bilateral cerebral dysfunction, no evidence of epileptiform activity, no further seizures which is breakthrough. He is currently on Keppra for seizure prophylaxis and is stable. PAST MEDICAL HISTORY: History of bilateral cerebrovascular accidents associated with left frontal and right frontoparietal as well as temporal areas with left internal carotid artery stenosis; atrial fibrillation, on Eliquis; CHF; COPD; severe pulmonary hypertension; cardiomyopathy with ejection fraction less than 25%; history of neck and throat cancer, history of PEG placement, right inguinal hernia. REVIEW OF SYSTEMS: Fourteen-point review of systems is negative except as per the HPI. FAMILY HISTORY Noncontributory. SOCIAL HISTORY: No illicit drug use, smoking or EtOH abuse at this time. DATA: No new labs done today. PHYSICAL EXAMINATION: VITAL SIGNS: Temperature is afebrile, pulse rate of 102, blood pressure 130/95, respiratory rate of 18, oxygen saturation 95% by room air. GENERAL: The patient is sitting up in bed, in no acute distress, emaciated looking. HEENT: Atraumatic, normocephalic. PERRLA. Extraocular muscles intact. NECK: Supple. No JVD, no adenopathy noted. LUNGS: Clear to auscultation. No adventitious sounds. HEART: S1, S2. Normal rate and rhythm. No murmurs, rubs or gallops. ABDOMEN: Soft, nontender and nondistended. Bowel sounds are present. EXTREMITIES: No clubbing. No cyanosis. Peripheral pulses 2+ felt bilaterally. NEUROLOGIC: The patient is alert and oriented to person and place, not much of month or year. He has cognitive impairment. Poor attention span and slow thought process. Recall after 5 minutes is 0/3. Cranial nerves II through XII intact. Motor exam: Has bilateral spastic weakness; increased tone throughout, more on the right when compared to the left and 4/5 bilateral weakness. Sensory exam: Decreased light touch and pinprick up to the calves bilaterally. Has evidence of neuropathy. DTRs are 1+ throughout. Coordination and gait is deferred for now. IMPRESSION: Breakthrough seizures secondary to bilateral encephalomalacia and he had breakthrough seizures likely secondary to congestive heart failure exacerbation, poor sleep hygiene and hypertensive episodes. At this time, recommend: 1. Keep his systolic blood pressures between 130s to 140s, diastolic 70 to 80s. 2. Continue his Keppra 500 mg p.o. b.i.d. 3. Monitor his electrolytes and correct accordingly. Cardiology followup and he is stable from neurological standpoint. Sunil Rivera MD
[2018-02-19 16:59] VITALS: RESP 20; TEMP 98.5
[2018-02-19 21:49] VITALS: BP 135/78; PULSE 82
--- NOTE | 2018-02-20 01:52 | PN ---
DATE: 02/19/2018 PULMONARY PROGRESS NOTE REFERRING PHYSICIAN: Mariana Fernandez MD SUBJECTIVE: He is lying in the bed, head at 45 degrees. Feels okay. Did eat his dinner. No cough. No sputum production. No nausea, vomiting or diarrhea. No leg pain or leg swelling. OBJECTIVE: GENERAL: In no acute distress. VITAL SIGNS: Temperature is 98, heart rate 103, respiratory rate is 20, blood pressure 123/83, pulse ox 100% on room air. HEENT: Moist mucous membrane. No ulcer or thrush noted. NECK: Supple. No JVD. LUNGS: Have a fair airflow. HEART: S1 and S2. ABDOMEN: Soft, nontender, nondistended. G-tube area looks okay. EXTREMITIES: No edema. NEUROLOGICAL: Awake and alert. Follows simple command. MEDICATIONS: He is on hydralazine 10 mg every 6 hours p.r.n., lorazepam 1 mg p.r.n., Brovana inhaled twice a day, diltiazem 30 mg four times a day, Eliquis 5 mg twice a day, Keppra 500 mg twice a day, Lasix 20 mg daily, metoprolol tartrate 100 mg twice a day, magnesium oxide 400 mg twice a day, MiraLax 17 g twice a day, Pepcid 40 mg at bedtime, Pulmicort inhaled twice a day. LABORATORY DATA: Reviewed. No new lab is available since yesterday. IMPRESSION AND PLAN: Chronic obstructive lung disease, history of head and neck cancer requiring resection, cardiomyopathy, had an ejection fraction of 25%, seizure disorder, oropharyngeal dysphagia, has a gastrostomy tube, malnutrition. Pulmonary point of view doing okay. Continue antiseizure medication, bronchodilator. Keep head at 45 degrees. Aspiration precaution. Follow up labs in the morning. Discharge planning. Spoke to nursing staff. Thank you and we will follow with you. Fatoumata Cruz MD
--- NOTE | 2018-02-20 05:24 | PN ---
DATE: 02/19/2018 SUBJECTIVE: The patient is 72-year-old male. The patient was seen and examined at bedside on 02/19/2018, looking comfortable. No nausea, vomiting, or diarrhea. No hematuria or hematochezia. No swelling of the leg. No chest pain, no palpitation. No headache, no dizziness. PHYSICAL EXAMINATION: VITAL SIGNS: Temperature 98.6, heart rate of 102, blood pressure 130/95, respiratory rate 18. HEENT: Head: Normocephalic, atraumatic. Eyes: PERRLA. Extraocular muscles intact. Conjunctivae clear. Nose patent. NECK: Supple. No carotid bruit. No JVD or thyromegaly. CHEST: Bilaterally symmetrical. HEART: S1, S2 positive. LUNGS: Clear to auscultation. ABDOMEN: Soft. Bowel sounds present, no organomegaly. EXTREMITIES: No edema, no cyanosis. NEUROLOGICAL: The patient is awake, alert. Follow simple commands. MEDICATIONS: Hydralazine, Ativan, Brovana, Cardizem, Eliquis, Keppra, Lasix, Lopressor, magnesium oxide. LABORATORY DATA: White blood cell is 7.1, hemoglobin 11.1, hematocrit 35.6, platelets 327, glucose 106. ASSESSMENT AND PLAN: Mr. Geo Ewing is a 72-year-old male with anemia, iron deficiency, history of seizures, has acute seizure in the [facility], history of stroke, cancer of mouth and tongue, history of dysphagia, has PEG tube, chronic obstructive lung disease, cardiomyopathy, ejection fraction 25%, malnourished, seen by the neurologist and intelligence chief, cleared the patient for discharge, my office and hospital nursing, nurse practitioner. Talked to the patient's daughter, Eladia multiple times. Medicine provided at bedside. We will follow. Mariana Fernandez MD
--- NOTE | 2018-02-20 08:27 | PN ---
DATE: 02/19/2018 REASON FOR DICTATION: Addendum to initial progress note dictated this morning. The patient feels okay, not in apparent distress. History of chronic atrial fibrillation, status post permanent pacemaker. RECOMMENDATIONS: Continue Eliquis b.i.d., continue Cardizem. Rate is well controlled on 80s and . We will discontinue telemetry. Aggressive medical treatment. Thank you, Dr. Fernandez, for providing us the opportunity in taking care of the patient, Geo Ewing. Fatoumata Huynh MD
== END 2018-02-19 23:56 | disposition home health service (06) | DRG 292 ==
LOC: ED 13:17 → ERH 18:13 → 2RNO 02-15 02:52 → OBSVTOIN 02-15 16:53
PROVIDERS: ADMIT Internal Medicine; ATTEND Internal Medicine
PROC: 3E0F7GC Introduction of Other Therapeutic Substance into Respiratory Tract, Via Natural or Artificial Opening (ICD-10-PCS; principal; 2018-02-15)
DX: I11.0 Hypertensive heart disease with heart failure (principal); I69.354 Hemiplegia and hemiparesis following cerebral infarction affecting left non-dominant side; R64 Cachexia; Z68.1 Body mass index [BMI] 19.9 or less, adult; I50.33 Acute on chronic diastolic (congestive) heart failure; I27.20 Pulmonary hypertension, unspecified; K74.60 Unspecified cirrhosis of liver; J44.9 Chronic obstructive pulmonary disease, unspecified; I48.2 Chronic atrial fibrillation; G93.89 Other specified disorders of brain; I42.9 Cardiomyopathy, unspecified; G40.909 Epilepsy, unspecified, not intractable, without status epilepticus; R13.12 Dysphagia, oropharyngeal phase; F03.90 Unspecified dementia, unspecified severity, without behavioral disturbance, psychotic disturbance, mood disturbance, and anxiety; Z85.810 Personal history of malignant neoplasm of tongue; Z93.1 Gastrostomy status; Z79.01 Long term (current) use of anticoagulants; Z85.819 Personal history of malignant neoplasm of unspecified site of lip, oral cavity, and pharynx; Z95.0 Presence of cardiac pacemaker; Z87.891 Personal history of nicotine dependence

== ENCOUNTER 2018-03-14 12:08 | Inpatient (IN) | payer MEDICARE, OTHER ==
[2018-03-14 12:10] VITALS: PULSE 75
--- NOTE | 2018-03-14 12:50 | ED PDOC ---
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 As per EMS, patient's daughter called 911 for the presented symptoms and requested medical evaluation. Upon arrival to the ED, patient is a poor historian and does not verbalize any complaints. Patient denies any fever, cough, chest pain, shortness of breath or abdominal pain. HPI limited secondary to patient's limited response. Time/Duration: Prior to Arrival Symptom Onset: Gradual Symptom Course: Unchanged Activities at Onset: Light Context: Home Past Medical History - Provider Review Nursing Documentation Reviewed: Yes - Infectious Disease Hx of Infectious Diseases: None - Cardiac Hx Hypertension: Yes - Pulmonary Hx Chronic Obstructive Pulmonary Disease (COPD): Yes - Neurological HX Cerebrovascular Accident: Yes (L sided weakness) Hx Dementia: Yes - HEENT Hx HEENT Disorder: No - Renal Hx Renal Disorder: No - Endocrine/Metabolic Hx Endocrine Disorders: No - Hematological/Oncological Hx Blood Disorders: Yes Hx Anemia: Yes Hx Cancer: Yes (throat) - Integumentary Other/Comment: multiple ble skin discolorations - Musculoskeletal/Rheumatological Hx Falls: Yes - Gastrointestinal Hx Gastrointestinal Disorders: Yes (L INGUINAL HERNIA) Hx Liver Failure: Yes (cirrhosis) - Genitourinary/Gynecological Hx Incontinence: Yes - Psychiatric Hx Psychophysiologic Disorder: Yes Hx Depression: Yes Hx Substance Use: No - Surgical History Hx Inguinal Hernia Repair: Yes (right) - Anesthesia Hx Anesthesia Reactions: No Hx Malignant Hyperthermia: No - Suicidal Assessment Feels Threatened In Home Enviroment: No Family/Social History - Physician Review Nursing Documentation Reviewed: Yes Family/Social History: No Known Family HX Smoking Status: Unknown If Ever Smoked Hx Alcohol Use: No Hx Substance Use: No Allergies/Home Meds Allergies/Adverse Reactions: Allergies No Known Allergies Allergy (Verified 03/14/18 17:42) Home Medications: Home Meds Medication Instructions Recorded Confirmed RX: levETIRAcetam [Keppra] 500 mg PO Q12 11/28/17 03/14/18 Review of Systems - Review of Systems Systems not reviewed;Unavailable: Other (Poor historian) Constitutional: absent: Fevers Respiratory: absent: SOB, Cough Cardiovascular: absent: Chest Pain Gastrointestinal: absent: Abdominal Pain Physical Exam Vital Signs Reviewed: Yes Vital Signs Temp Pulse Resp BP Pulse Ox 03/14/18 12:24 97.9 F 110 H 18 119/82 100 Temperature: Afebrile Blood Pressure: Normal Pulse: Tachycardic Respiratory Rate: Normal Appearance: Positive for: Other (contracted ) Pain Distress: None Mental Status: Positive for: other (AAOx2) - Systems Exam Head: Present: Atraumatic, Normocephalic Pupils: Present: PERRL Extroacular Muscles: Present: EOMI Conjunctiva: Present: Normal Mouth: Present: Moist Mucous Membranes Neck: Present: Normal Range of Motion Respiratory/Chest: Present: Clear to Auscultation, Good Air Exchange. No: Respiratory Distress, Accessory Muscle Use Cardiovascular: Present: Regular Rate and Rhythm, Normal S1, S2. No: Murmurs Abdomen: Present: Other (PEG tube in place ). No: Tenderness, Distention, Peritoneal Signs Back: Present: Normal Inspection Upper Extremity: Present: Normal Inspection. No: Cyanosis, Edema Lower Extremity: Present: Normal Inspection. No: Edema Neurological: Present: GCS=15, CN II-XII Intact Skin: Present: Warm, Dry, Normal Color. No: Rashes Psychiatric: Present: Alert Medical Decision Making ED Course and Treatment: 03/14/18 12:31 Impression: 72 year old male presents to the Emergency Department for evaluation of visual hallucinations. Differential Diagnosis included but are not limited to: UTI vs metabolic vs infectious vs intracranil vs baseline dementia Plan: -- CT of Head -- EKG -- Labs -- Chest X-ray -- Urinalysis -- Reassess and disposition Prior Visits: Notes and results from previous visits were reviewed. Progress Notes: 03/14/18 12:31 EKG: Ordered, reviewed, and independently interpreted the EKG. Rate : 110 BPM Rhythm : Sinus Tachycardia Interpretation Non-specific ST/T wave changes. No interval change from previous. 03/14/18 13:30 CT of head reviewed by radiologist, shows: FINDINGS: HEMORRHAGE: No intracranial hemorrhage. BRAIN: No mass effect or edema. Severe encephalomalacia is seen in the right frontal and parietal lobes as well as the left frontal lobe. There is severe atrophy. There are no acute findings VENTRICLES: Unremarkable. No hydrocephalus. CALVARIUM: Unremarkable. PARANASAL SINUSES: Unremarkable as visualized. No significant inflammatory changes. MASTOID AIR CELLS: Unremarkable as visualized. No inflammatory changes. OTHER FINDINGS: None. IMPRESSION: Severe chronic encephalomalacia. No acute findings 03/14/18 14:18 Chest X-ray reviewed by radiologist, shows no active disease. 03/15/18 11:[address] neg. ua pendign. discussed with pmd jordan. accpts obs ua pendign. - RAD Interpretation Radiology Orders: 03/14/18 12:31 CHEST PORTABLE [RAD] Stat 03/14/18 12:32 HEAD W/O CONTRAST [CT] Stat Windscreen Fitter: Radiologist - EKG Interpretation Interpreted by ED Physician: Yes Type: 12 lead EKG - Scribe Statement The provider has reviewed the documentation as recorded by the Scribe Hao Lara. All medical record entries made by the Scribe were at my direction and personally dictated by me. I have reviewed the chart and agree that the record accurately reflects my personal performance of the history, physical exam, medical decision making, and the department course for this patient. I have also personally directed, reviewed, and agree with the discharge instructions and disposition. Disposition/Present on Arrival - Present on Arrival Any Indicators Present on Arrival: No History of DVT/PE: No History of Uncontrolled Diabetes: No Urinary Catheter: No History of Decub. Ulcer: Yes History Surgical Site Infection Following: None - Disposition Have Diagnosis and Disposition been Completed?: Yes Diagnosis: Altered mental status Disposition: HOSPITALIZED Disposition Time: 07:00 Condition: STABLE
[2018-03-14 13:21] LABS: BASO # 0.01 K/mm3 (0.0-2.0); BASO % 0.1 % (0.0-3.0); EOS # 0.1 (0.0-0.7); EOS % 1.3 % (1.5-5.0); GRAN # 8.14 (1.4-6.5); GRAN % 80.5 % (50.0-68.0); HEMOGLOBIN 11.9 g/dL (14.0-18.0); LYMPH # 1.2 (1.2-3.4); LYMPH % 11.6 % (22.0-35.0); MEAN CELL VOLUME 81.6 fl (80.0-105.0); MEAN CORPUSCULAR HEMOGLOBIN 25.8 pg (25.0-35.0); MEAN CORPUSCULAR HGB CONC 31.6 g/dl (31.0-37.0); MEAN PLATELET VOLUME 9.2 fl (7.0-11.0); MONO # 0.7 (0.1-0.6); MONO % 6.5 % (1.0-6.0); RBC 4.61 10^6/uL (3.5-6.1); RED CELL DISTRIBUTION WIDTH 15.6 % (11.5-14.5); WHITE BLOOD COUNT 10.1 10^3/ul (4.5-11.0)
[2018-03-14 13:32] LABS: INR 1.39; PROTHROMBIN TIME 16.1 SECONDS (9.4-12.5)
[2018-03-14 13:33] LABS: ALB/GLOB RATIO 0.8 (1.1-1.8); ALBUMIN 3.9 g/dL (3.0-4.8); ALT/SGPT 38 U/L (7-56); AST/SGOT 73 U/L (17-59); BLOOD UREA NITROGEN 26 mg/dL (7-21); CALCIUM 9.8 mg/dL (8.4-10.5); GFR NON-AFRICAN AMERICAN > 60
--- NOTE | 2018-03-14 13:33 | RAD ---
Date of service: 03/14/2018 HISTORY: ams COMPARISON: 02/14/2018 FINDINGS: LUNGS: No active pulmonary disease. PLEURA: No significant pleural effusion identified, no pneumothorax apparent. CARDIOVASCULAR: Normal. OSSEOUS STRUCTURES: No significant abnormalities. VISUALIZED UPPER ABDOMEN: Normal. OTHER FINDINGS: Single lead pacemaker IMPRESSION: No active disease.
[2018-03-14 13:43] LABS: TROPONIN I < 0.01 ng/mL
[2018-03-14 13:48] LABS: CK-MB 0.7 ng/mL (0.0-3.6)
--- NOTE | 2018-03-14 14:07 | CT ---
Date of service: 03/14/2018 PROCEDURE: CT HEAD WITHOUT CONTRAST. HISTORY: ams COMPARISON: 02/16/2018 CT TECHNIQUE: Axial computed tomography images were obtained through the head/brain without intravenous contrast. Radiation dose: Total exam DLP = 925.98 mGy-cm. This CT exam was performed using one or more of the following dose reduction techniques: Automated exposure control, adjustment of the mA and/or kV according to patient size, and/or use of iterative reconstruction technique. FINDINGS: HEMORRHAGE: No intracranial hemorrhage. BRAIN: No mass effect or edema. Severe encephalomalacia is seen in the right frontal and parietal lobes as well as the left frontal lobe. There is severe atrophy. There are no acute findings VENTRICLES: Unremarkable. No hydrocephalus. CALVARIUM: Unremarkable. PARANASAL SINUSES: Unremarkable as visualized. No significant inflammatory changes. MASTOID AIR CELLS: Unremarkable as visualized. No inflammatory changes. OTHER FINDINGS: None. IMPRESSION: Severe chronic encephalomalacia. No acute findings
[2018-03-14] MEDS ORDERED: Sodium Chloride 0.9% 100 ML IV SCH (20:30)
[2018-03-14] MEDS: Sodium Chloride 0.9% 1,000 ML IV SCH (20:57)
[2018-03-14 23:59] VITALS: BMI 18.2
[2018-03-14] MEDS ORDERED: Influenza Vaccine 60 mcg/0.5 mL SYR (4YR UP) IM ONE (23:59)
[2018-03-14] MEDS ORDERED: Pneumococcal 23-Valent Vaccine IM ONE (23:59)
[2018-03-15] MEDS: Arformoterol 15 mcg/2 ml Inh Sol IH SCH ×2 (07:21→19:49)
[2018-03-15] MEDS: Budesonide 0.25 mg/2 ml Inhal Susp UD IH SCH ×2 (07:21→19:49)
[2018-03-15] MEDS ORDERED: POLYETHYLENE GLYCOL 3350 17 GM/Dose PACKET PO SCH (10:00)
[2018-03-15] MEDS ORDERED: Magnesium Oxide 400 mg Tab UD PO SCH (10:00)
[2018-03-15] MEDS ORDERED: Furosemide 40 mg/5 mL Oral Soln UD PO SCH (10:31)
[2018-03-15] MEDS ORDERED: levETIRAcetam 500 mg/5ml UD cups PO SCH ×2 (10:32→18:00)
--- NOTE | 2018-03-15 11:07 | CARD ---
APPROVED REPORT Date of service: 03/14/2018 EKG Measurement Heart [id number] ID [id number] <Conclusion> Atrial flutter with 2:[address] changes Abnormal ECG
[2018-03-15] MEDS ORDERED: levETIRAcetam 500 mg/5ml UD cups PO ONE (12:15)
[2018-03-15] MEDS ORDERED: levETIRAcetam 500 mg/5ml UD cups PEG ONE (12:30)
[2018-03-15] MEDS: Furosemide 40 mg/5 mL Oral Soln UD PO SCH (13:15)
--- NOTE | 2018-03-15 13:41 | HP ---
DATE OF EXAM: 03/14/2018 CHIEF COMPLAINT: Altered mental status. The patient is a 72-year-old male. The patient was seen and examined on the bedside on 03/14/2018. HISTORY OF PRESENT ILLNESS: Mr. Geo Ewing is a 72-year-old male with past medical history of atrial fibrillation, on Eliquis; hypertension; COPD; throat cancer; cirrhosis of the liver; dementia; TIA; CVA with right-sided hemiparesis, came to the emergency department via EMS for reported visual hallucination since 2 days , visiting nurse called me that the patient is delusional and not feeling very well. I told him to send the patient to the emergency room. The patient's daughter called 911 for the presented symptoms and requested medical evaluation. Upon arrival to the ED, the patient is a poor historian. Does not verbalize any complaint. The patient denies any fevers, chills. No nausea or vomiting. No diarrhea. I saw the patient in his room on the 5th floor, looks dehydrated and altered mental status. PAST MEDICAL HISTORY: As above. Hypertension, COPD, left-sided weakness, anemia, throat cancer, multiple skin discolorations, urine incontinent, history of depression. FAMILY HISTORY: Currently noncontributory. HABITS: No smoking. No drugs. No ethanol. ALLERGIES: THE PATIENT IS NOT ALLERGIC WITH ANY MEDICATIONS. MEDICATIONS: Brovana, Cardizem, Eliquis, Keppra, Lasix, Lopressor, magnesium oxide, MiraLax, Pepcid, Pulmicort, REVIEW OF SYSTEMS: The patient was seen and examined at the bedside, altered mental status. Poor historian. No fever. No chills. No chest pain. No abdominal pain. No hematochezia. PHYSICAL EXAMINATION VITAL SIGNS: Temperature 97.9, pulse 110, respirations 18, blood pressure 120/80, pulse oximetry 100. HEENT: Head: Normocephalic, atraumatic. Eyes: PERRLA. Extraocular muscles intact. Conjunctivae are clear. Nose patent. Mucous membranes moist. NECK: Supple. No carotid bruit. No JVD or thyromegaly. CHEST: Bilaterally symmetrical. CARDIOPULMONARY: Heart S1, S2 positive. LUNGS: Clear to auscultation. ABDOMEN: Soft, has PEG tube in place. Nontender. No distention. No peritoneal signs. BACK: Slight asymmetry is noted but not cyanosis. The patient has sacral decubitus ulcer. NEUROLOGIC: Awake, alert, but is not following simple commands. ASSESSMENT AND PLAN: Mr. Geo Ewing is a 72-year-old male with multiple medica problems. He has atrial fibrillation, he is on Eliquis; hypertension; chronic obstructive pulmonary disease; throat cancer; dysphagia, has PEG tube; cirrhosis of the liver; dementia; TIA; CVA; right-sided hemiparesis; was in the rehab for a long time, and now at home, daughter is taking care of all; having multiple skin discolorations; decubitus ulcer on the back. The patient came with altered mental status and hallucination. CAT scan of the head is done, reviewed by me. We restarted the patient on medications. Cultures are done. GI prophylaxis given. the patient's decubitus are infected. That is why the patient is septic and is hallucinating. We will follow up. Mariana Fernandez MD MTDD
[2018-03-15] MEDS ORDERED: Oxycodone/Acetaminophen 5/325 mg Tab PEG PRN (13:49)
--- NOTE | 2018-03-15 14:02 | CP.PCM.CON ---
<Azeem Henao - Last Filed: 03/15/18 14:05> History of Present Illness - History of Present Illness History of Present Illness: Consult note for Dr. Carson Reason for consult: Sacral decubiti 72M with past medical history of throat CA, A-fib on Eliquis, HTN , COPD,cirrhosis, dementia, TIA, and CVA with right sided hemiparesis, presents to [facility] for visual hallucinations. General surgery was consulted for evaluation of sacral decubiti. Patient denies fever/chills, chest pain, shortness of breath, abdominal pain, low back pain. PMH: as stated above PSH: right inguinal herniorrhaphy All: NKDA Review of Systems - Review of Systems Review of Systems: 10 pt ROS unremarkable, except as stated in HPI Past Patient History - Infectious Disease Hx of Infectious Diseases: None - Past Medical History & Family History Past Medical History?: Yes - Past Social History Smoking Status: Unknown If Ever Smoked - CARDIAC Hx Hypertension: Yes - PULMONARY Hx Chronic Obstructive Pulmonary Disease (COPD): Yes - NEUROLOGICAL HX Cerebrovascular Accident: Yes (L sided weakness) Hx Dementia: Yes - HEENT Hx HEENT Problems: No - RENAL Hx Chronic Kidney Disease: No - ENDOCRINE/METABOLIC Hx Endocrine Disorders: No - HEMATOLOGICAL/ONCOLOGICAL Hx Blood Disorders: Yes Hx Anemia: Yes Hx Cancer: Yes (throat) - INTEGUMENTARY Other/Comment: multiple ble skin discolorations - MUSCULOSKELETAL/RHEUMATOLOGICAL Hx Falls: Yes - GASTROINTESTINAL Hx Gastrointestinal Disorders: Yes (L INGUINAL HERNIA) Hx Liver Failure: Yes (cirrhosis) - GENITOURINARY/GYNECOLOGICAL Hx Incontinence: Yes - PSYCHIATRIC Hx Psychophysiologic Disorder: Yes Hx Depression: Yes Hx Substance Use: No - SURGICAL HISTORY Hx Surgeries: Yes - ANESTHESIA Hx Anesthesia Reactions: No Hx Malignant Hyperthermia: No Meds Allergies/Adverse Reactions: Allergies Allergy/AdvReac Type Severity Reaction Status Date / Time No Known Allergies Allergy Verified 03/14/18 17:42 - Medications Medications: Current Medications Apixaban (Eliquis) 5 mg PEG BID [facility]; Protocol Arformoterol Tartrate (Brovana) 15 mcg I[facility] [id number] Last Admin: 03/15/18 07:21 Dose: 15 mcg Budesonide (Pulmicort Respules) 0.25 mg IH [id number] [facility] Last Admin: 03/15/18 07:21 Dose: 0.25 mg Collagenase (Santyl) 0 gm TOP DAILY [facility] Diltiazem HCl (Cardizem) 30 mg PEG DAILY [facility] Famotidine (Pepcid) 40 mg PEG HS [facility] Furosemide (Lasix) 20 mg PO DAILY [facility] Last Admin: 03/15/18 13:15 Dose: 20 mg Sodium Chloride (Sodium Chloride 0.9%) 1,000 mls @ 40 mls/hr IV .Q24H [facility] Last Admin: 03/14/18 20:57 Dose: 40 mls/hr Levetiracetam (Keppra) 500 mg PEG BID [facility] Magnesium Oxide (Mag-Ox) 400 mg PEG BID [facility] Metoprolol Tartrate (Lopressor) 100 mg PEG BID [facility] Oxycodone/Acetaminophen (Percocet 5/325 Mg Tab) 1 tab PEG Q6H PRN PRN Reason: Pain, severe (8-10) Stop: 03/18/18 13:50 Physical Exam - Constitutional Appears: No Acute Distress - Head Exam Head Exam: NORMOCEPHALIC - ENT Exam ENT Exam: Mucous Membranes Moist - Respiratory Exam Respiratory Exam: NORMAL BREATHING PATTERN - Cardiovascular Exam Cardiovascular Exam: +S1, +S2 - GI/Abdominal Exam GI & Abdominal Exam: Soft - Neurological Exam Neurological exam: Alert - Psychiatric Exam Psychiatric exam: Normal Mood - Skin Skin Exam: Warm Additional comments: left unstageable trochanteric ulcer x3 stage II ulcers along right gluteal region Results - Vital Signs Recent Vital Signs: Last Vital Signs Temp 98.5 F 03/15/18 06:00 Pulse 108 H 03/15/18 07:25 Resp 20 03/15/18 06:00 BP 132/88 03/15/18 13:15 Pulse Ox 100 03/15/18 06:00 - Labs Result Diagrams: 03/14/18 13:03 03/14/18 13:03 Assessment & Plan - Assessment and Plan (Free Text) Assessment: 72M with unstageable left trochanteric ulcer and x3 right sacral decubiti ulcers Plan: -Turn Q2 -Air mattress - Apply Santyl on left trochanteric ulcer -Optifoam daily for right sacral decubiti -Wound nursing care consult -D/w Dr. Alli Cardoza PGY3 <Garcia Carson - Last Filed: 03/16/18 20:37> Meds - Medications Medications: Current Medications Apixaban (Eliquis) 5 mg PEG BID [facility]; Protocol Last Admin: 03/16/18 18:25 Dose: 5 mg Arformoterol Tartrate (Brovana) 15 mcg IH [id number] [facility] Last Admin: 03/16/18 20:20 Dose: 15 mcg Budesonide (Pulmicort Respules) 0.25 mg IH [id number] [facility] Last Admin: 03/16/18 20:20 Dose: 0.25 mg Collagenase (Santyl) 0 gm TOP DAILY [facility] Last Admin: 03/16/18 10:48 Dose: 1 applic Diltiazem HCl (Cardizem) 30 mg PEG DAILY [facility] Last Admin: 03/16/18 10:46 Dose: 30 mg Doxycycline Hyclate (Doryx) 100 mg PO Q12 [facility]; Protocol Stop: 03/24/18 22:01 Last Admin: 03/16/18 10:47 Dose: 100 mg Famotidine (Pepcid) 40 mg PEG HS [facility] Last Admin: 03/15/18 22:17 Dose: 40 mg Furosemide (Lasix) 20 mg PO DAILY [facility] Last Admin: 03/16/18 10:46 Dose: 20 mg Sodium Chloride (Sodium Chloride 0.9%) 1,000 mls @ 40 mls/hr IV .Q24H [facility] Last Admin: 03/15/18 22:41 Dose: 40 mls/hr Cefepime HCl (Maxipime 1gm) 1 gm in 100 mls @ 100 mls/hr IVPB Q8 [facility]; Protocol Stop: 03/24/18 22:01 Last Admin: 03/16/18 13:41 Dose: 100 mls/hr Levetiracetam (Keppra) 500 mg PEG BID [facility] Last Admin: 03/16/18 18:24 Dose: 500 mg Magnesium Oxide (Mag-Ox) 400 mg PEG BID [facility] Last Admin: 03/16/18 18:25 Dose: 400 mg Metoprolol Tartrate (Lopressor) 100 mg PEG BID [facility] Last Admin: 03/16/18 18:25 Dose: 100 mg Oxycodone/Acetaminophen (Percocet 5/325 Mg Tab) 1 tab PEG Q6H PRN PRN Reason: Pain, severe (8-10) Stop: 03/18/18 13:50 Last Admin: 03/15/18 23:02 Dose: 1 tab Results - Vital Signs Recent Vital Signs: Last Vital Signs Temp 97.8 F 03/16/18 06:00 Pulse 90 03/16/18 10:47 Resp 20 03/16/18 06:00 BP 143/83 03/16/18 10:47 Pulse Ox 100 03/16/18 06:00 - Labs Result Diagrams: 03/16/18 06:30 03/16/18 06:30 Labs: Laboratory Results - last 24 hr 03/16/18 03/16/18 03/16/18 06:10 06:30 06:30 WBC 9.8 RBC 4.31 Hgb 10.8 L Hct 35.2 L MCV 81.7 MCH 25.1 MCHC 30.7 L RDW 15.5 H Plt Count 415 MPV 8.9 Sodium 141 Potassium 3.9 Chloride 106 Carbon Dioxide 29 Anion Gap 10 BUN 26 H Creatinine 0.7 L Est GFR ( Amer) > 60 Est GFR (Non-Af Amer) > 60 Random Glucose 137 H Calcium 9.0 Urine Color Yellow Urine Appearance Cloudy Urine pH 6.0 Ur Specific [place] 1.025 Urine Protein Trace H Urine Glucose (UA) Negative Urine Ketones Negative Urine Blood Negative Urine Nitrate Negative Urine Bilirubin Negative Urine Urobilinogen 0.2 Ur Leukocyte Esterase Moderate H Urine RBC 0 - 2 Urine WBC Tntc Ur Epithelial Cells 1 - 3 Urine Bacteria Small Hyaline Casts 0 - 2 Assessment & Plan - Assessment and Plan (Free Text) Plan: This consult done under my direct supervision Ngoc Carson MD FACS
[2018-03-15] MEDS ORDERED: levETIRAcetam Solution 100 MG/ML BOTTLE PEG SCH (18:00)
[2018-03-15] MEDS: Magnesium Oxide 400 mg Tab UD PEG SCH (18:12)
[2018-03-15] MEDS: Collagenase 250 Units/gm Ointment(30 gm) TOP SCH (18:16)
[2018-03-15] MEDS ORDERED: Cefepime 1gm in NS 100ml 1 GM/100 ML BAG IVPB SCH (22:00)
[2018-03-15] MEDS: Cefepime 1gm in NS 100ml 1 GM/100 ML BAG IVPB SCH (22:16)
[2018-03-15] MEDS: Sodium Chloride 0.9% 1,000 ML IV SCH (22:41)
--- NOTE | 2018-03-16 02:17 | CON ---
DATE: 03/15/2018 The patient is in room 565, bed 1. CHIEF COMPLAINT: Weakness times 1 day. HISTORY OF PRESENT ILLNESS: A 72-year-old male who is admitted through the emergency room with diagnosis of altered mental status. The patient was seen in the emergency room by Dr. Carlo Giraldo, and the patient had been reported to have weakness and change in mental status in a patient with a history of AFib, on Eliquis; hypertension; chronic obstructive lung disease. The patient has throat cancer, cirrhosis, dementia, TIA, CVA with right-sided hemiparesis, and infectious disease consultation to rule out infectious causes. The patient is a poor historian. REVIEW OF SYSTEMS: Reveals there have been no fevers reported. No chills. There is mild shortness of breath. No chest pain. There is no cough. No abdominal pain reported. There is mild shortness of breath, and no dysuria or frequency. No headaches or blurred vision reported. A 12-point review of systems performed. PAST MEDICAL HISTORY: Significant for atrial fibrillation, hypertension, chronic obstructive lung disease, high cholesterol, throat cancer, dementia, cirrhosis, TIA, CVA, depression. PAST SURGICAL HISTORY: Noncontributory. ALLERGIES: THE PATIENT HAS NO KNOWN ALLERGIES. MEDICATIONS AT HOME: Reviewed and include Keppra, Cardizem. PHYSICAL EXAMINATION: On exam, the patient is in bed with temperature 98, blood pressure is 130/70, respiratory rate of 23, heart rate of 111. Examination of HEENT is unremarkable. Neck is supple. Lungs have decreased breath sounds. Heart exam, normal S1, S2. Abdomen examination is soft. Laboratory examination reveals a white count of 10,000, hemoglobin 11, platelets of 514 with a coagulation as noted and INR of 1.39. Chemistries reveals AST is 73, LDH is 706, and BUN is 26. No urinalysis available and urine culture is not available. Left hip culture is pending. The patient also had a chest x-ray. ASSESSMENT/PLAN: This is a 72-year-old male, chronically ill, debilitated, was admitted with a change of mental status, tachycardia, dyspnea with, 1. Systemic inflammatory response syndrome with a negative chest x-ray, normal white count. Blood cultures will be ordered. Urine cultures will be ordered. Urinalysis will be ordered, and we will start the patient empirically on antibiotics, pending epps-culture results. I will empirically start the patient on Maxipime and doxycycline. We will make further recommendations upon availability of initial results. We will follow with you. Efra Craig MD
[2018-03-16 06:22] LABS: URINE BILIRUBIN NEGATIVE (NEGATIVE); URINE BLOOD NEGATIVE (NEGATIVE); URINE GLUCOSE (UA) NEGATIVE (NEGATIVE); URINE LEUKOCYTE ESTERASE MODERATE Leu/uL (NEGATIVE); URINE PROTEIN TRACE mg/dL (<30 mg/dL); URINE UROBILINOGEN 0.2 E.U./dL (<1 E.U./dL)
[2018-03-16 06:34] LABS: URINE APPEARANCE CLOUDY (CLEAR); URINE COLOR YELLOW (YELLOW)
[2018-03-16] MEDS: Cefepime 1gm in NS 100ml 1 GM/100 ML BAG IVPB SCH ×3 (06:48→21:10)
[2018-03-16 06:51] LABS: URINE BACTERIA SMALL (NEG); URINE HYALINE CAST 0 - 2 /hpf; URINE RBC 0 - 2 /hpf (0-2); URINE WBC TNTC /hpf (0-6)
[2018-03-16 06:54] LABS: HEMOGLOBIN 10.8 g/dL (14.0-18.0); MEAN CELL VOLUME 81.7 fl (80.0-105.0); MEAN CORPUSCULAR HEMOGLOBIN 25.1 pg (25.0-35.0); MEAN CORPUSCULAR HGB CONC 30.7 g/dl (31.0-37.0); MEAN PLATELET VOLUME 8.9 fl (7.0-11.0); RBC 4.31 10^6/uL (3.5-6.1); RED CELL DISTRIBUTION WIDTH 15.5 % (11.5-14.5); WHITE BLOOD COUNT 9.8 10^3/ul (4.5-11.0)
[2018-03-16] MEDS: Arformoterol 15 mcg/2 ml Inh Sol IH SCH ×2 (07:18→20:20)
[2018-03-16] MEDS: Budesonide 0.25 mg/2 ml Inhal Susp UD IH SCH ×2 (07:18→20:20)
[2018-03-16 07:57] LABS: BLOOD UREA NITROGEN 26 mg/dL (7-21); GFR NON-AFRICAN AMERICAN > 60
[2018-03-16] MEDS: levETIRAcetam 500 mg/5ml UD cups PEG SCH ×2 (10:45→18:24)
[2018-03-16] MEDS: Furosemide 40 mg/5 mL Oral Soln UD PO SCH (10:46)
[2018-03-16] MEDS: Magnesium Oxide 400 mg Tab UD PEG SCH ×2 (10:47→18:25)
[2018-03-16] MEDS: Collagenase 250 Units/gm Ointment(30 gm) TOP SCH (10:48)
[2018-03-16] MEDS: Sodium Chloride 0.9% 1,000 ML IV SCH (21:12)
--- NOTE | 2018-03-16 22:44 | PN ---
DATE: 03/16/2018 SUBJECTIVE: The patient is in bed, in no acute distress, nontoxic. PHYSICAL EXAMINATION: VITAL SIGNS: Temperature is 97, blood pressure is 140/80, respiratory rate of 20, heart rate of 90. HEENT: Unremarkable. NECK: Supple. LUNGS: Have decreased breath sounds. HEART: Normal S1, S2. ABDOMEN: Soft, nontender. LABORATORY EXAMINATION: Reveals a white count of 9.8, BUN of 26, creatinine 0.7, LDH is 706. Urinalysis is noted. Microbiology reveals the hip cultures, gram negative rods, gram positive cocci. ASSESSMENT AND PLAN: A 72-year-old admitted through the emergency room who appears chronically ill, debilitated with change in mental status, tachycardia, and dyspnea with systemic inflammatory response syndrome, with multiple decubiti, on Maxipime and doxycycline with gram negative and gram positive cocci, decubitus cultured in the left hip. Overall prognosis is poor. We will follow with you. Efra Craig MD
--- NOTE | 2018-03-17 00:32 | PN ---
DATE: 03/16/2018 SUBJECTIVE: The patient was seen and examined on the bedside on 03/16/2018. I am doing progress note for 03/16/2018. The patient is looking comfortable. No change in the status. No fever. No chills. No nausea, vomiting, diarrhea. Looks like a little better hydrated. PHYSICAL EXAMINATION: VITAL SIGNS: Temperature 98.1, pulse 114, blood pressure 110/76, respiratory rate 18. HEENT: Head normocephalic, atraumatic. Eyes PERRLA. Extraocular muscles intact. Conjunctivae clear. Nose patent. Mucous membrane moist. NECK: Supple. No carotid bruit. No JVD or thyromegaly. CHEST: Bilaterally symmetrical. HEART: S1 and S2 positive. LUNGS: Clear to auscultation. ABDOMEN: Soft. Bowel sounds positive. No organomegaly. EXTREMITIES: No edema. No cyanosis. NEUROLOGICAL: The patient is awake and alert. Moving all 4 extremities. No focal deficits. LABORATORY DATA: White blood cells 9.8, hemoglobin 10.8, hematocrit 35.2, platelets 415. Sodium 141, potassium 3.9, BUN 26, creatinine 0.7, glucose 137. ASSESSMENT AND PLAN: Mr. Geo Ewing, a 72-year-old male with anemia, thrombocytosis, renal insufficiency, diabetes mellitus, abnormal liver function test, has proteinuria, urinary tract infection. Looks like chronically ill, debilitated with changes in the mental status, tachycardia and dyspnea with systemic inflammatory response syndrome with multiple decubiti. On Maxipime and doxycycline with gram-negative and gram-positive cocci, decubitus ulcers in the left hip. Overall prognosis is poor, but getting antibiotics. The patient has percutaneous endoscopic gastrostomy tube, getting feeding with the percutaneous endoscopic gastrostomy tube. Gastrointestinal, deep venous thrombosis prophylaxes. Repeat labs. We will follow up. Mariana Fernandez MD
--- NOTE | 2018-03-17 02:49 | PN ---
DATE: 03/15/2018 SUBJECTIVE: Patient is 72-year-old male. Patient was seen and examined at the bedside on 03/15/2018, looking comfortable, feeling better. No fever. No chills. No nausea, vomiting, or diarrhea. No headache. No dizziness. PHYSICAL EXAMINATION: VITAL SIGNS: Temperature 98, blood pressure 130/70, respiratory rate 20, heart rate 110. HEENT: Head: Normocephalic, atraumatic. Eyes: PERRLA. Extraocular muscles intact. Conjunctivae clear. Nose patent. Mucous membrane moist. NECK: Supple. No carotid bruit. No JVD or thyromegaly. CHEST: Bilaterally symmetrical. HEART: S1 and S2 positive. LUNGS: Clear to auscultation. ABDOMEN: Soft. Bowel sounds positive. No organomegaly. EXTREMITIES: No edema. No cyanosis. NEUROLOGIC: The patient is awake and alert. Moving all 4 extremities. No focal deficit. MEDICATIONS: Brovana, Cardizem, doxycycline, Eliquis, Keppra, Lasix, Lopressor, magnesium oxide, Maxipime, Pepcid, Percocet, Pulmicort, and NS. LABORATORY DATA: White blood cells 10.1, hemoglobin 11.9, hematocrit 37.6, platelets 514. Sodium 139, potassium 4.3, BUN 23, creatinine 0.8, glucose 89. AST 73. ASSESSMENT AND PLAN: Mr. Geo Ewing is a 72-year-old male with anemia, thrombocytosis, abnormal liver function test, proteinuria, urinary tract infection. He is chronically ill, debilitated, was admitted for altered mental status, hallucinations, tachycardia, dyspnea, has systemic inflammatory response syndrome with negative chest x-ray, abnormal white blood cell count. Blood cultures will be ordered. Urine cultures will be ordered as per Dr. Craig. Urinalysis will be ordered. Patient was started empirically on antibiotics, depending on the culture, we will change. Patient was started on Maxipime and doxycycline. Patient has decubitus ulcer. He has history of atrial fibrillation, hypertension, chronic obstructive lung disease, hypercholesterolemia, throat cancer, dementia, cirrhosis, transient ischemic attack, cerebrovascular accident, depression. Appreciated ID's disease input and surgical team input. Length of time discussion done with Dr. Carson today. Patient denies fever and chills. We will continue present treatment. We will follow up. Mariana Fernandez MD [facility] # [id number]
[2018-03-17] MEDS: Cefepime 1gm in NS 100ml 1 GM/100 ML BAG IVPB SCH ×3 (05:25→21:52)
[2018-03-17] MEDS: Budesonide 0.25 mg/2 ml Inhal Susp UD IH SCH ×2 (07:22→20:27)
[2018-03-17] MEDS: Arformoterol 15 mcg/2 ml Inh Sol IH SCH ×2 (07:22→20:27)
[2018-03-17] MEDS: levETIRAcetam 500 mg/5ml UD cups PEG SCH ×2 (10:54→18:00)
[2018-03-17] MEDS: Furosemide 40 mg/5 mL Oral Soln UD PO SCH (10:55)
[2018-03-17] MEDS: Magnesium Oxide 400 mg Tab UD PEG SCH ×2 (10:55→17:59)
[2018-03-17] MEDS: Collagenase 250 Units/gm Ointment(30 gm) TOP SCH (11:07)
--- NOTE | 2018-03-17 23:34 | PN ---
DATE: 03/17/2018 SUBJECTIVE: The patient is in bed, in no acute distress, nontoxic. No fevers. PHYSICAL EXAMINATION: VITAL SIGNS: On exam, temperature is 98, blood pressure is 106/70, respiratory rate of 18, heart rate of 111. HEENT: Examination of HEENT is unremarkable. NECK: Supple. LUNGS: Have decreased breath sounds. HEART: Normal S1, S2. ABDOMEN: Soft. LABORATORY DATA: Laboratory examination reveals a white count of 9.8, hemoglobin of 10, BUN 26, creatinine of 0.7. Urinalysis is noted. Microbiology is reviewed and Dr. Fernandez's note is reviewed. ASSESSMENT AND PLAN: A 72-year-old male with chronically ill, debilitated, change in mental status, tachycardia and dyspnea with systemic inflammatory response syndrome and multiple decubiti, on doxy and Maxipime. Today is day #3. We will give a short course of antibiotics. Cefepime is active as is the doxycycline. Efra Craig MD
[2018-03-18] MEDS: Cefepime 1gm in NS 100ml 1 GM/100 ML BAG IVPB SCH ×3 (05:45→22:04)
[2018-03-18] MEDS: Sodium Chloride 0.9% 1,000 ML IV SCH (05:47)
[2018-03-18] MEDS: Arformoterol 15 mcg/2 ml Inh Sol IH SCH ×2 (07:26→20:44)
[2018-03-18] MEDS: Budesonide 0.25 mg/2 ml Inhal Susp UD IH SCH ×2 (07:26→20:44)
[2018-03-18] MEDS: Furosemide 40 mg/5 mL Oral Soln UD PO SCH (09:53)
[2018-03-18] MEDS: levETIRAcetam 500 mg/5ml UD cups PEG SCH (09:53)
[2018-03-18] MEDS: Magnesium Oxide 400 mg Tab UD PEG SCH ×2 (09:54→17:17)
[2018-03-18] MEDS: Collagenase 250 Units/gm Ointment(30 gm) TOP SCH (13:06)
--- NOTE | 2018-03-18 21:06 | PN ---
DATE: 03/18/2018 SUBJECTIVE: The patient is in bed, in no acute distress, nontoxic. PHYSICAL EXAMINATION: VITAL SIGNS: Temperature is 98, blood pressure is 112/70, respiratory rate of 18. HEENT: Unremarkable. NECK: Supple. LUNGS: Have decreased breath sounds. HEART: Normal S1, S2. ABDOMINAL: Soft. LABORATORY EXAMINATION: Reveals a white count of 9.8. Chemistries are noted. Urinalysis is noted. Microbiology is noted. ASSESSMENT AND PLAN: A 72-year-old male with chronically ill debility change in mental status, tachycardia and dyspnea with systemic inflammatory response syndrome, multiple decubiti. Today is day #4 of cefepime and doxycycline. We would complete 4-7 days of antibiotics. Today is day #4 of 4-7 days. Efra Craig MD
--- NOTE | 2018-03-19 02:04 | PN ---
DATE: 03/18/2018 SUBJECTIVE: The patient is a 72-year-old male. Patient was seen and examined at the bedside on 03/18/2018, complaining about back pain. No nausea, vomiting or diarrhea. No hematuria. No hematochezia. No swelling of the legs. No chest pain. No palpitation. No headache. No dizziness. PHYSICAL EXAMINATION: VITAL SIGNS: Temperature 98.6, pulse 111, respiratory rate 18, blood pressure 106/70. HEENT: Head: Normocephalic, atraumatic. Eyes: PERRLA. Extraocular muscles intact. Conjunctivae clear. Nose patent. Mucous membrane moist. NECK: Supple. No carotid bruit. No JVD or thyromegaly. CHEST: Bilaterally symmetrical. HEART: S1 and S2 positive. LUNGS: Clear to auscultation. ABDOMEN: Soft. Bowel sounds positive. No organomegaly. EXTREMITIES: No edema. No cyanosis. NEUROLOGICAL: The patient is awake and alert. Obeys simple orders. MEDICATIONS: Brovana, Cardizem, doxycycline, Eliquis, Keppra, Lasix, Lopressor, magnesium oxide, Maxipime, Pepcid, Pulmicort, fentanyl patch and sodium chloride. LABORATORY DATA: White blood cell is 9.8, hemoglobin 10.8, hematocrit 35.2, platelets 415. Sodium 141, potassium 3.9, BUN 26, creatinine 0.7. Glucose 137. ASSESSMENT AND PLAN: Mr. Geo Ewing is a 72-year-old male with anemia, renal insufficiency, hyperglycemia, abnormal liver function test, proteinuria, urinary tract infection. Seen by Dr. Craig, Infectious Disease. Patient looks like chronically ill, debilitated. Came with change in mental status, tachycardia and dyspnea with systemic inflammatory response syndrome with multiple decubiti on the back. Dr. Guardado is the surgeon on the case, on doxycycline and Maxipime, today is day #3. We will give short course of antibiotics. Cefepime is active as the doxycycline. Patient was seen by Dr. Garcia Carson. Patient has history of throat cancer, atrial fibrillation on Eliquis, hypertension, chronic obstructive pulmonary disease, cirrhosis of the liver, dementia, transient ischemic attack, cerebrovascular accident with right-sided hemiparesis, history of right inguinal herniorrhaphy. The patient has unstageable left trochanteric ulcers and three right sacral decubitus ulcers. Need air mattress, wound nursing care consult. We will follow up. Mariana Fernandez MD
[2018-03-19] MEDS: Cefepime 1gm in NS 100ml 1 GM/100 ML BAG IVPB SCH (06:16)
[2018-03-19] MEDS: Arformoterol 15 mcg/2 ml Inh Sol IH SCH ×2 (07:26→20:53)
[2018-03-19] MEDS: Budesonide 0.25 mg/2 ml Inhal Susp UD IH SCH ×2 (07:26→20:53)
[2018-03-19 08:21] VITALS: RESP 20; O2SAT 100
--- NOTE | 2018-03-19 09:22 | PN ---
DATE: 03/18/2018 SUBJECTIVE: Patient is 72-year-old male. Patient was seen and examined at the bedside, looking comfortable. Not in acute distress, nontoxic looking. No fevers. No chills. No nausea, vomiting, or diarrhea. No hematuria or hematochezia. No swelling of the legs. Had chest pain. No palpitation. PHYSICAL EXAMINATION: VITAL SIGNS: Temperature 98, blood pressure 106/70, respiratory rate 18, heart rate 110. HEENT: Head: Normocephalic, atraumatic. Eyes: PERRLA. Extraocular muscles intact. Conjunctivae clear. Nose patent. Mucous membranes moist. NECK: Supple. No carotid bruit. No JVD or thyromegaly. CHEST: Bilaterally symmetrical. HEART: S1, S2 positive. LUNGS: Clear to auscultation. ABDOMEN: Soft. Bowel sounds present. No organomegaly. EXTREMITIES: No edema. No cyanosis. NEUROLOGICAL: Patient is awake and alert. Moving all four extremities. No focal deficit. LABORATORY DATA: White blood cells 9.3, hemoglobin 10, hematocrit 30, BUN 36, creatinine 0.7. Urinalysis is noted. Microbiology is reviewed and reviewed Dr. Craig's note ASSESSMENT AND PLAN: sepsis , htn, decubetus ulcers , dementia , anemia , dysphagia , had peg tube , bed ridden , getting anb, meds noted Repeat labs. We will follow up. Mariana Fernandez MD [facility]
[2018-03-19] MEDS: levETIRAcetam 500 mg/5ml UD cups PEG SCH ×2 (13:31→19:11)
[2018-03-19] MEDS: Magnesium Oxide 400 mg Tab UD PEG SCH ×2 (13:31→19:11)
[2018-03-19] MEDS: Furosemide 40 mg/5 mL Oral Soln UD PO SCH (13:32)
[2018-03-19 14:12] VITALS: PULSE 114; TEMP 97.6
[2018-03-19] MEDS: Collagenase 250 Units/gm Ointment(30 gm) TOP SCH (19:12)
[2018-03-19 19:14] VITALS: BP 140/80
--- NOTE | 2018-03-19 20:38 | PN ---
DATE: 03/19/2018 SUBJECTIVE: The patient is in bed in no acute distress, nontoxic. PHYSICAL EXAMINATION VITAL SIGNS: Temperature is 98, blood pressure is 149/90, respiratory rate of 20, heart rate of 110. HEENT: Unremarkable. NECK: Supple. LUNGS: Decreased breath sounds. HEART: Normal S1, S2. ABDOMEN: Soft. LABORATORY EXAMINATION: Reveals a white count of 9.8, hemoglobin of 10, platelets of 415. Coagulation is noted. Chemistries noted. Urinalysis is reviewed. ASSESSMENT AND PLAN: A 72-year-old with chronically ill, debilitated, change in mental status, tachycardia, dyspnea with systemic inflammatory response syndrome. Today is day #5 of cefepime and doxycycline, will complete in 4-7 days. The patient has had adequate therapy. Overall, prognosis is quite poor for this patient. Efra Craig MD
--- NOTE | 2018-03-20 02:15 | PN ---
DATE: 03/19/2018 SUBJECTIVE: Patient is 72-year-old male. Patient was seen and examined at the bedside on 03/19/2018. No big change of the status. No nausea, vomiting or diarrhea. No hematuria or hematochezia. No swelling of the legs. No chest pain. No palpitation. No headache. No dizziness. Patient is a very poor historian. Looks like he is comfortable. Don't look like toxic. PHYSICAL EXAMINATION: VITAL SIGNS: Temperature 98, blood pressure 140/90, respiratory rate 18, heart rate 110. HEENT: Head: Normocephalic, atraumatic. Eyes: PERRLA. Extraocular muscles intact. Conjunctivae clear. Nose patent. Mucous membrane moist. NECK: Supple. No carotid bruit. No JVD or thyromegaly. CHEST: Bilaterally symmetrical. HEART: S1 and S2 positive. LUNGS: Clear to auscultation. ABDOMEN: Soft. Bowel sounds positive. No organomegaly. EXTREMITIES: No edema. No cyanosis. NEUROLOGICAL: The patient is awake and alert. Follows simple commands. MEDICATIONS: Brovana, Cardizem, doxycycline, Eliquis, Keppra, Lasix, Lopressor, magnesium oxide. LABORATORY DATA: White blood cells 9.8, hemoglobin 10.8, hematocrit 35.2, platelets 415. Sodium 141, potassium 3.9, BUN 26, creatinine 0.7, glucose 137, AST 73. ASSESSMENT AND PLAN: Mr. Geo Ewing is a 72-year-old male with anemia, hyperglycemia, abnormal liver function test, urinary tract infection, proteinuria. Patient looks like chronically ill and debilitated. Change in mental status with tachycardia, dyspnea with systemic inflammatory response syndrome. Today is day 5 of the cefepime and doxycycline, will complete 4 to 7 days as per ID and according to ID, patient has adequate therapy. Overall prognosis is quite poor for this sick patient. We will continue present treatment. Gastrointestinal and deep venous thrombosis prophylaxes, repeat labs. We will follow up. Mariana Fernandez MD
--- NOTE | 2018-03-21 05:54 | DS ---
The patient was seen and examined at bedside on 03/19/2018. I am doing discharge summary for 03/19/2018. CHIEF COMPLAINT: Altered mental status. HISTORY OF PRESENT ILLNESS: Mr. Kaylin Guardado is 72 years old male with the past medical history of multiple medical problems, multiple medical admissions, atrial fibrillation on Eliquis, hypertension, COPD, throat cancer, cirrhosis of the liver, dementia, TIA, CVA, and we transferred the patient to [facility]. We admitted the patient and did CAT scan of the head and echocardiogram done. Seen by Dr. Craig, given a short course antibiotics, the patient improved. Came back to reasonable mental level. seen by Dr. Geo Zelaya for wound care. The patient is improved. The patient has PEG tube, cannot eat. Most of his nutrition goes with the PEG tube, he is like ill looking, very fragile patient in need of nutrition. We will write prescription. PAST MEDICAL HISTORY: Hypertension, COPD, left-sided weakness, anemia, throat cancer, multiple skin desquamation, urine incontinence and history of depression. FAMILY HISTORY: Father and mother, noncontributory. HABITS: No smoking. No drugs. No ethanol. ALLERGIES: THE PATIENT IS NOT ALLERGIC TO ANY MEDICATIONS. HOME MEDICATIONS: Reviewed by me. REVIEW OF SYSTEMS: For more detail, see the progress notes dated 03/19/2018 at 2251 and his note of discharge planning is on that paper. The patient was discharged home with daughter; daughter is working from home. She is able to take care of him and we have visiting nurse and homemaker services and discharge patient at home who are helping the patient and family. GI and DVT prophylaxis. Repeat labs. We will followup. Palliative admission should be approved by insurance nutrition for the patient Mariana Fernandez MD JAMES
== END 2018-03-19 22:58 | disposition home or self-care (01) | DRG 689 ==
LOC: ED 12:08 → ERH 14:15 → 5RNO 17:46 → OBSVTOIN 03-16 20:34
PROVIDERS: ADMIT Internal Medicine; ATTEND Internal Medicine
DX: N39.0 Urinary tract infection, site not specified (principal); L89.613 Pressure ulcer of right heel, stage 3; I69.351 Hemiplegia and hemiparesis following cerebral infarction affecting right dominant side; R65.10 Systemic inflammatory response syndrome (SIRS) of non-infectious origin without acute organ dysfunction; R44.1 Visual hallucinations; G93.89 Other specified disorders of brain; Z93.1 Gastrostomy status; L89.150 Pressure ulcer of sacral region, unstageable; E11.65 Type 2 diabetes mellitus with hyperglycemia; L89.220 Pressure ulcer of left hip, unstageable; L89.152 Pressure ulcer of sacral region, stage 2; J44.9 Chronic obstructive pulmonary disease, unspecified; R53.81 Other malaise; R00.0 Tachycardia, unspecified; Z85.819 Personal history of malignant neoplasm of unspecified site of lip, oral cavity, and pharynx; K74.60 Unspecified cirrhosis of liver; I48.91 Unspecified atrial fibrillation; I10 Essential (primary) hypertension; F03.90 Unspecified dementia, unspecified severity, without behavioral disturbance, psychotic disturbance, mood disturbance, and anxiety; N28.9 Disorder of kidney and ureter, unspecified; D64.9 Anemia, unspecified; R94.5 Abnormal results of liver function studies; R80.9 Proteinuria, unspecified; L89.109 Pressure ulcer of unspecified part of back, unspecified stage; E78.00 Pure hypercholesterolemia, unspecified; E86.0 Dehydration; Z79.01 Long term (current) use of anticoagulants

== ENCOUNTER 2018-03-24 13:11 | Inpatient (IN) | payer MEDICARE, OTHER ==
[2018-03-24 13:12] VITALS: PULSE 75
--- NOTE | 2018-03-24 13:25 | ED PDOC ---
Arrival/HPI - General Chief Complaint: GI Problem Time Seen by Provider: 03/24/18 13:18 Historian: Patient - History of Present Illness Narrative History of Present Illness (Text): 03/24/18 13:49 72 year old male, whose past medical history includes Atrial Fibrillation, hypertension, COPD, throat cancer, cirrhosis. dementia, TIA, and CVA, who presents to the ED complaining of rectal bleeding. Patient was discharged from the hospital on 03/19/2018 after being admitted for AMS. Patient denies any n/v/d, abdominal pain, sob, chest pain, or any other complaints. Time/Duration: Prior to Arrival Symptom Onset: Gradual Symptom Course: Unchanged Activities at Onset: Light Context: Home Past Medical History - Provider Review Nursing Documentation Reviewed: Yes - Infectious Disease Hx of Infectious Diseases: None - Cardiac Hx Hypertension: Yes - Pulmonary Hx Chronic Obstructive Pulmonary Disease (COPD): Yes - Neurological HX Cerebrovascular Accident: Yes (L sided weakness) Hx Dementia: Yes - HEENT Hx HEENT Disorder: No - Renal Hx Renal Disorder: No - Endocrine/Metabolic Hx Endocrine Disorders: No - Hematological/Oncological Hx Blood Disorders: Yes Hx Anemia: Yes Hx Cancer: Yes (throat) - Integumentary Other/Comment: multiple ble skin discolorations - Musculoskeletal/Rheumatological Hx Falls: Yes - Gastrointestinal Hx Gastrointestinal Disorders: Yes (L INGUINAL HERNIA) Hx Liver Failure: Yes (cirrhosis) - Genitourinary/Gynecological Hx Incontinence: Yes - Psychiatric Hx Psychophysiologic Disorder: Yes Hx Depression: Yes Hx Substance Use: No - Surgical History Hx Inguinal Hernia Repair: Yes (right) - Anesthesia Hx Anesthesia Reactions: No Hx Malignant Hyperthermia: No - Suicidal Assessment Feels Threatened In Home Enviroment: No Family/Social History - Physician Review Nursing Documentation Reviewed: Yes Family/Social History: Unknown Family HX Smoking Status: Unknown If Ever Smoked Hx Alcohol Use: No Hx Substance Use: No Allergies/Home Meds Allergies/Adverse Reactions: Allergies No Known Allergies Allergy (Verified 03/24/18 18:42) Review of Systems - Physician Review All systems were reviewed & negative as marked: Yes - Review of Systems Constitutional: Normal Eyes: Normal ENT: Normal Respiratory: Normal. absent: SOB, Cough Cardiovascular: Normal. absent: Chest Pain Gastrointestinal: Hematochezia. absent: Abdominal Pain, Diarrhea, Nausea, Vomiting Genitourinary Male: Normal. absent: Dysuria, Frequency Musculoskeletal: Normal. absent: Back Pain, Neck Pain Skin: Normal. absent: Rash Neurological: Normal. absent: Headache, Dizziness Endocrine: Normal Hemo/Lymphatic: Normal Psychiatric: Normal Physical Exam - Physical Exam Narrative Physical Exam (Text): 03/24/18 13:56 Gen: frail and cachetic. NAD, cooperative, ill appearing, non-toxic. Head: NCAT. EYES: PERRL, EOMI, conjunctiva clear, no pallor or icterus. MOUTH: dry MM. CV: (+) S1S2, RRR, no M/G/R LUNGS: CTA B/L, No W/R/R, good air movement Abd: Soft, NTTP, no guarding, rebound or rigidity. GI: hemocult positive. Skin: Left hip dq - large necrotic center. Sacrum dq - stage 3 or 4, malodorous. Right hip dq stage 1. skin breakdown on medial aspect of left knee. Neuro: AAO x 3, GCS 15, CN 2-12 grossly intact, motor and sensory grossly intact. ext: contracted. no cyanosis or edema. Vital Signs Reviewed: Yes Medical Decision Making ED Course and Treatment: 03/24/18 14:05 Impression: 72 year old male who presents to the ED complaining of rectal bleeding. Plan: -- CT abd/pelvis -- CXR -- EKG -- Labs -- Cardiac ISO -- UA Progress Notes: EKG reviewed, shows Sinus Tachycardia at 108 bpm. Short UT interval. Normal QRS. Normal QT. Normal axis. No ST elevations. ST depressions in inferior leads. Non- specific T wave changes. EKG compared to previos EKG performed on 03/15/18, shows no significant changes. 03/24/18 15:11 CXR reviewed, shows: IMPRESSION: No acute findings. 03/24/18 17:07 Nurse reports soft bowel movement in the ED. Labs significant for hbg 9.7, BUN 45, BNP 3200. Results of w/u d/w patient who is agreeable w/POC to admit for further evaluation and management. 03/24/18 17:[address] Fernandez, who accepts pt to her service. 03/24/18 17:52 CT abd/pelvis reviewed, shows: IMPRESSION: Severe constipation and fecal impaction in the rectum. No evidence for bowel obstruction. - Scribe Statement The provider has reviewed the documentation as recorded by the Scribe Lucia Momin All medical record entries made by the Scribe were at my direction and personally dictated by me. I have reviewed the chart and agree that the record accurately reflects my personal performance of the history, physical exam, medical decision making, and the department course for this patient. I have also personally directed, reviewed, and agree with the discharge instructions and disposition. Disposition/Present on Arrival - Present on Arrival Any Indicators Present on Arrival: Yes History of DVT/PE: No History of Uncontrolled Diabetes: No Urinary Catheter: No History of Decub. Ulcer: Yes History Surgical Site Infection Following: None - Disposition Have Diagnosis and Disposition been Completed?: Yes Diagnosis: Failure to thrive, Dehydration, GIB (gastrointestinal bleeding) Disposition: HOSPITALIZED Disposition Time: 17:20 Patient Plan: Admission Condition: FAIR
--- NOTE | 2018-03-24 14:11 | RAD ---
Date of service: 03/24/2018 HISTORY: gib COMPARISON: 03/14/2018. FINDINGS: LUNGS: The lungs are well inflated and clear. PLEURA: No pleural effusions or pneumothorax. CARDIOVASCULAR: There is mild cardiomegaly. Atherosclerotic aortic arch calcifications are present. There is stable position of left-sided AICD. OSSEOUS STRUCTURES: Within normal limits for the patient's age. VISUALIZED UPPER ABDOMEN: Normal. OTHER FINDINGS: None. IMPRESSION: No acute findings.
[2018-03-24 14:14] LABS: BASO # 0.02 K/mm3 (0.0-2.0); BASO % 0.2 % (0.0-3.0); EOS # 0.2 (0.0-0.7); EOS % 2.2 % (1.5-5.0); GRAN # 7.41 (1.4-6.5); GRAN % 80.5 % (50.0-68.0); HEMOGLOBIN 9.7 g/dL (14.0-18.0); LYMPH % 10.6 % (22.0-35.0); MEAN CELL VOLUME 82.1 fl (80.0-105.0); MEAN CORPUSCULAR HEMOGLOBIN 25.6 pg (25.0-35.0); MEAN CORPUSCULAR HGB CONC 31.2 g/dl (31.0-37.0); MEAN PLATELET VOLUME 9.6 fl (7.0-11.0); MONO # 0.6 (0.1-0.6); MONO % 6.5 % (1.0-6.0); RBC 3.79 10^6/uL (3.5-6.1); RED CELL DISTRIBUTION WIDTH 15.8 % (11.5-14.5); WHITE BLOOD COUNT 9.2 10^3/uL (4.5-11.0)
[2018-03-24 14:18] LABS: INR 1.85; PARTIAL THROMBOPLASTIN TIME 31.4 Seconds (25.1-36.5); PROTHROMBIN TIME 21.3 SECONDS (9.4-12.5)
[2018-03-24 14:26] LABS: BLOOD UREA NITROGEN 45 mg/dL (7-21)
[2018-03-24 14:33] LABS: B-TYPE NATRIURETIC PEPTIDE 3280 pg/mL (0-450)
[2018-03-24 14:38] LABS: TROPONIN I 0.01 ng/mL
[2018-03-24 14:40] LABS: ALB/GLOB RATIO 0.7 (1.1-1.8); ALBUMIN 2.9 g/dL (3.0-4.8); ALT/SGPT 23 U/L (7-56); AMYLASE 62 U/L (35-125); AST/SGOT 82 U/L (17-59); CALCIUM 8.5 mg/dL (8.4-10.5); GFR NON-AFRICAN AMERICAN > 60; LIPASE 99 U/L (23-300)
[2018-03-24] MEDS ORDERED: Iohexol 350 MG/100 ML VIAL ONE (14:57)
[2018-03-24 14:59] LABS: CK-MB 0.4 ng/mL (0.0-3.6)
--- NOTE | 2018-03-24 17:03 | CT ---
Date of service: 03/24/2018 PROCEDURE: CT Abdomen and Pelvis with contrast HISTORY: GIB COMPARISON: 02/07/2018. TECHNIQUE: Contrast dose: Radiation dose: Total exam DLP = 293.12 mGy-cm. This CT exam was performed using one or more of the following dose reduction techniques: Automated exposure control, adjustment of the mA and/or kV according to patient size, and/or use of iterative reconstruction technique. FINDINGS: LOWER THORAX: The visualized the right lung is clear. There is dependent atelectasis in the left lung base. There is moderate cardiomegaly. No atherosclerotic aortic calcifications. Small right pleural effusion. LIVER: Normal in size with homogeneous enhancement. No gross lesion or ductal dilatation. GALLBLADDER AND BILE DUCTS: No calcified gallstones. PANCREAS: Normal in size with homogeneous enhancement. No gross lesion or ductal dilatation. SPLEEN: Normal in size and appearance. ADRENALS: No discrete nodule. KIDNEYS AND URETERS: Normal in size with homogeneous enhancement. No hydronephrosis. No solid mass. Small simple cysts in the left kidney. VASCULATURE: Unremarkable. No aortic aneurysm. BOWEL: A gastrostomy remains in place the small bowel loops are normal in caliber. There is large amount of stool in the transverse, descending and sigmoid colon and fecal impaction in the rectum. No evidence for bowel obstruction. APPENDIX: Normal appendix. PERITONEUM: No free fluid. No free air. LYMPH NODES: No enlarged lymph nodes. BLADDER: Well distended and normal in appearance. REPRODUCTIVE: The prostate gland is normal in size. BONES: Old compression fracture deformities in the L1, L2 and L4 vertebral bodies. OTHER FINDINGS: None. IMPRESSION: Severe constipation and fecal impaction in the rectum. No evidence for bowel obstruction.
[2018-03-24] MEDS ORDERED: Arformoterol 15 mcg/2 ml Inh Sol IH SCH (20:00)
[2018-03-24] MEDS ORDERED: LACTOSE REDUCED FOOD PEG SCH (20:00)
[2018-03-25] VITALS: BMI 17.7
--- NOTE | 2018-03-25 05:40 | HP ---
DATE OF EXAM: 03/24/2018 The patient is 72 years old male. The patient was seen and examined on 03/24/2018. CHIEF COMPLAINT: Blood in the stool. HISTORY OF PRESENT ILLNESS: Mr. Geo Ewing, a 72 years old male with past medical history of atrial fibrillation, hypertension, COPD, throat cancer, cirrhosis of the liver, dementia, TIA, CVA, has multiple admissions, has decubitus ulcer, also came for rectal bleeding. Patient was discharged from the hospital around 03/19/2018 after being admitted for altered mental status. The patient denies any nausea, vomiting, diarrhea. No abdominal pain. No shortness of breath. No chest pain. No palpitations. PAST MEDICAL HISTORY: As above. COPD, throat cancer, multiple skin discolorations and left inguinal hernia. FAMILY HISTORY: Father and mother, noncontributory. HABITS: No smoking. No drugs. No ethanol. ALLERGIES: THE PATIENT IS NOT ALLERGIC WITH ANY MEDICATIONS. HOME MEDICATIONS: Reviewed by me. REVIEW OF SYSTEMS: The patient was seen and examined at the bedside, looking comfortable. No nausea, vomiting or diarrhea. No hematuria. No hematochezia. No swelling of the legs. No chest pain. No palpitations. No fever. No chills. No cough. No abdominal pain. No back pain. No dysuria. No neck pain. No headache. No dizziness. PHYSICAL EXAMINATION: VITALS: Temperature 98.6, pulse 101, blood pressure 122/68, and respiratory rate 22. HEENT: Head normocephalic, atraumatic. Eyes, PERRLA. Extraocular muscles intact. Conjunctivae clear. Nose patent. Mucous membranes moist. NECK: Supple. No carotid bruit. No JVD or thyromegaly. CHEST: Bilaterally symmetrical. HEART: S1 and S2 positive. LUNGS: Clear to auscultation. ABDOMEN; Soft Bowel sounds present. No organomegaly. EXTREMITIES: No edema. No cyanosis. NEUROLOGIC: The patient is awake and alert, follows simple commands. LABORATORY DATA: White blood cells 9.2, hemoglobin 9.7, hematocrit 31.1 and platelets 348. Sodium 137 and potassium 4.2. BUN 45 and creatinine 0.7. AST 82. ASSESSMENT AND PLAN: Mr. Geo Ewing a 72 years old male with anemia, renal insufficiency, abnormal liver function test and congestive heart failure. CAT scan of abdomen and pelvis reviewed by me. Gastroenterology with consult with Dr. Malik. The patient with history of atrial fibrillation, hypertension, chronic obstructive pulmonary disease, throat cancer, cirrhosis of the liver, dementia, transient ischemic attack and cerebrovascular accident, came to the emergency department complaining of rectal bleeding and came to know that the patient has lower gastrointestinal bleeding. Dr. Malik consult called. Repeat labs. We will follow up. Mariana Fernandez MD
[2018-03-25 08:02] LABS: HDL CHOLESTEROL 27 mg/dL (29-60)
[2018-03-25 08:10] LABS: IRON 24 ug/dL (45-180)
[2018-03-25 08:12] LABS: LDL CHOLESTEROL 50 mg/dL (0-129)
[2018-03-25 08:19] LABS: % IRON SATURATION 11 % (20-55); TOTAL IRON BINDING CAPACITY 211 ug/dL (261-462)
[2018-03-25] MEDS: Arformoterol 15 mcg/2 ml Inh Sol IH SCH ×2 (08:40→21:33)
[2018-03-25] MEDS: Budesonide 0.5 mg/2 ml Inhal Susp UD IH SCH ×2 (08:40→21:33)
[2018-03-25] MEDS: Magnesium Oxide 400 mg Tab UD PEG SCH ×2 (09:27→17:02)
[2018-03-25] MEDS: Collagenase 250 Units/gm Ointment(30 gm) TOP SCH (09:29)
--- NOTE | 2018-03-25 09:40 | CARD ---
APPROVED REPORT Date of service: 03/24/2018 EKG Measurement Heart [id number] <Conclusion> A. Flutter with2:1 conduction NSSSTW changes No change
[2018-03-25] MEDS ORDERED: POLYETHYLENE GLYCOL 3350 17 GM/Dose PACKET PEG SCH (10:00)
[2018-03-25] MEDS: Cefepime 1gm in NS 100ml 1 GM/100 ML BAG IVPB SCH ×3 (11:00→22:23)
[2018-03-25 12:38] LABS: FOLATE > 20.0 ng/mL
--- NOTE | 2018-03-25 14:05 | CP.PCM.CON ---
History of Present Illness - History of Present Illness History of Present Illness: Surgery: Dr. Carson Reason for consult: Sacral decubiti 72M with past medical history of throat CA, A-fib on Eliquis, HTN , COPD,ci rrhosis, dementia, TIA, and CVA with right sided hemiparesis, presents to [facility] [place] ED for rectal bleeding. General surgery was consulted for evaluation of sacral decubiti. Patient was recently admitted for altered mental status and dc'd on 03/19. Now returns with reports of bleeding per rectum. At time of evaluation patient denies fever/chills, chest pain, shortness of breath, abdominal pain, low back pain, or bloody stools. PMH: as stated above PSH: right inguinal herniorrhaphy All: NKDA Review of Systems - Review of Systems Systems not reviewed;Unavailable: Altered Mental Status Past Patient History - Infectious Disease Hx of Infectious Diseases: None - Past Medical History & Family History Past Medical History?: Yes - Past Social History Smoking Status: Unknown If Ever Smoked - CARDIAC Hx Hypertension: Yes - PULMONARY Hx Chronic Obstructive Pulmonary Disease (COPD): Yes - NEUROLOGICAL HX Cerebrovascular Accident: Yes (L sided weakness) Hx Dementia: Yes - HEENT Hx HEENT Problems: No - RENAL Hx Chronic Kidney Disease: No - ENDOCRINE/METABOLIC Hx Endocrine Disorders: No - HEMATOLOGICAL/ONCOLOGICAL Hx Blood Disorders: Yes Hx Anemia: Yes Hx Cancer: Yes (throat) - INTEGUMENTARY Other/Comment: multiple ble skin discolorations - MUSCULOSKELETAL/RHEUMATOLOGICAL Hx Falls: Yes - GASTROINTESTINAL Hx Gastrointestinal Disorders: Yes (L INGUINAL HERNIA) Hx Liver Failure: Yes (cirrhosis) - GENITOURINARY/GYNECOLOGICAL Hx Incontinence: Yes - PSYCHIATRIC Hx Psychophysiologic Disorder: Yes Hx Depression: Yes - SURGICAL HISTORY Hx Surgeries: Yes - ANESTHESIA Hx Anesthesia Reactions: No Hx Malignant Hyperthermia: No Meds Allergies/Adverse Reactions: Allergies Allergy/AdvReac Type Severity Reaction Status Date / Time No Known Allergies Allergy Verified 03/24/18 18:42 - Medications Medications: Current Medications Apixaban (Eliquis) 5 mg PEG BID HEIDE; Protocol Last Admin: 03/25/18 09:28 Dose: 5 mg Arformoterol Tartrate (Brovana) 15 mcg IH [id number] HEIDE Last Admin: 03/25/18 08:40 Dose: 15 mcg Budesonide (Pulmicort Respules) 0.5 mg IH [id number] HEIDE Last Admin: 03/25/18 08:40 Dose: 0.5 mg Collagenase (Santyl) 0 gm TOP DAILY [facility] Last Admin: 03/25/18 09:29 Dose: Not Given Diltiazem HCl (Cardizem) 30 mg PEG QID [facility] Last Admin: 03/25/18 09:24 Dose: 30 mg Famotidine (Pepcid) 40 mg PEG HS [facility] Last Admin: 03/25/18 00:49 Dose: 40 mg Furosemide (Lasix) 20 mg PEG DAILY [facility] Last Admin: 03/25/18 09:28 Dose: 20 mg Cefepime HCl (Maxipime 1gm) 1 gm in 100 mls @ 100 mls/hr IVPB Q8 [facility]; Protocol Stop: 04/03/18 11:49 Levetiracetam (Keppra) 500 mg PO Q12 [facility] Last Admin: 03/25/18 09:24 Dose: 500 mg Magnesium Oxide (Mag-Ox) 400 mg PEG BID [facility] Last Admin: 03/25/18 09:27 Dose: 400 mg Metoprolol Tartrate (Lopressor) 100 mg PEG BID [facility] Last Admin: 03/25/18 09:25 Dose: 100 mg Polyethylene Glycol (Miralax) 17 gm PEG BID [facility] Last Admin: 03/25/18 09:28 Dose: 17 gm Physical Exam - Constitutional Appears: Cachectic, Chronically Ill - Head Exam Head Exam: ATRAUMATIC, NORMOCEPHALIC - Eye Exam Eye Exam: EOMI, Normal appearance - ENT Exam ENT Exam: Mucous Membranes Moist - Respiratory Exam Respiratory Exam: absent: Respiratory Distress - Cardiovascular Exam Cardiovascular Exam: REGULAR RHYTHM. absent: Tachycardia - GI/Abdominal Exam GI & Abdominal Exam: Soft. absent: Distended, Tenderness Additional comments: G tube in place - Neurological Exam Neurological exam: Alert - Skin Skin Exam: Dry, Warm Additional comments: Right hip stage 1 pressure ulcer Left hip unstagable pressure ulcer Left Ischial ulcer stage 1 Results - Vital Signs Recent Vital Signs: Last Vital Signs Temp 98.8 F 03/25/18 06:00 Pulse 112 H 03/25/18 09:25 Resp 18 03/25/18 06:00 BP 107/66 03/25/18 09:28 Pulse Ox 97 03/25/18 06:00 - Labs Result Diagrams: 03/24/18 13:50 03/24/18 13:50 Labs: Laboratory Results - last 24 hr 03/24/18 03/24/18 03/24/18 13:50 13:50 13:50 WBC 9.2 RBC 3.79 Hgb 9.7 L Hct 31.1 L MCV 82.1 MCH 25.6 MCHC 31.2 RDW 15.8 H Plt Count 348 MPV 9.6 Gran % 80.5 H Lymph % (Auto) 10.6 L [place] % (Auto) 6.5 H Eos % (Auto) 2.2 Baso % (Auto) 0.2 Gran # 7.41 H Lymph # (Auto) 1.0 L [place] # (Auto) 0.6 Eos # (Auto) 0.2 Baso # (Auto) 0.02 PT 21.3 H INR 1.85 APTT 31.4 Sodium 137 Potassium 4.2 Chloride 100 Carbon Dioxide 33 Anion Gap 8 L BUN 45 H Creatinine 0.7 L Est GFR ( Amer) > 60 Est GFR (Non-Af Amer) > 60 Random Glucose 83 Hemoglobin A1c Calcium 8.5 Iron TIBC % Saturation Total Bilirubin 0.4 AST 82 H ALT 23 Alkaline Phosphatase 91 Lactate Dehydrogenase 684 Total Creatine Kinase 474 H CK-MB (CK-2) 0.4 CK-MB (CK-2) % Cancelled Troponin I 0.01 NT-Pro-B Natriuret Pep 3280 H Total Protein 6.9 Albumin 2.9 L Globulin 4.0 Albumin/Globulin Ratio 0.7 L Triglycerides Cholesterol LDL Cholesterol Direct HDL Cholesterol Amylase 62 Lipase 99 Vitamin B12 Folate Blood Type Antibody Screen BBK History Checked 03/24/18 03/25/18 03/25/18 13:50 07:00 07:00 WBC RBC Hgb Hct MCV MCH MCHC RDW Plt Count MPV Gran % Lymph % (Auto) [place] % (Auto) Eos % (Auto) Baso % (Auto) Gran # Lymph # (Auto) [place] # (Auto) Eos # (Auto) Baso # (Auto) PT INR APTT Sodium Potassium Chloride Carbon Dioxide Anion Gap BUN Creatinine Est GFR ( Amer) Est GFR (Non-Af Amer) Random Glucose Hemoglobin A1c Calcium Iron 24 L TIBC 211 L % Saturation 11 L Total Bilirubin AST ALT Alkaline Phosphatase Lactate Dehydrogenase Total Creatine Kinase CK-MB (CK-2) CK-MB (CK-2) % Troponin I NT-Pro-B Natriuret Pep Total Protein Albumin Globulin Albumin/Globulin Ratio Triglycerides 84 Cholesterol 80 L LDL Cholesterol Direct 50 HDL Cholesterol 27 L Amylase Lipase Vitamin B12 702 Folate > 20.0 Blood Type O POSITIVE Antibody Screen Negative BBK History Checked Patient has bt 03/25/18 07:15 WBC RBC Hgb Hct MCV MCH MCHC RDW Plt Count MPV Gran % Lymph % (Auto) [place] % (Auto) Eos % (Auto) Baso % (Auto) Gran # Lymph # (Auto) [place] # (Auto) Eos # (Auto) Baso # (Auto) PT INR APTT Sodium Potassium Chloride Carbon Dioxide Anion Gap BUN Creatinine Est GFR ( Amer) Est GFR (Non-Af Amer) Random Glucose Hemoglobin A1c 5.7 Calcium Iron TIBC % Saturation Total Bilirubin AST ALT Alkaline Phosphatase Lactate Dehydrogenase Total Creatine Kinase CK-MB (CK-2) CK-MB (CK-2) % Troponin I NT-Pro-B Natriuret Pep Total Protein Albumin Globulin Albumin/Globulin Ratio Triglycerides Cholesterol LDL Cholesterol Direct HDL Cholesterol Amylase Lipase Vitamin B12 Folate Blood Type Antibody Screen BBK History Checked Assessment & Plan - Assessment and Plan (Free Text) Assessment: 72 y/o male w/ unstageable Left hip pressure ulcer Plan: -needs debridement, can do in [place] but eliquis must be held for 48hrs prior to intervention -santyl to Left hip ulcer -optifoam to stage 1 pressure ulcers -turn Q2 -air mattress -wedge pillow to offload pressure points -maximize nutrition -for GI bleed, recommend holding eliquis if possible. CT scan reveiwed showing rectal impaction. Bleeding could be from stercoral ulcer. Recommend soap suds enema and avoiding constipation. GI consult. f/u recs. -patient seen and examined w/ Dr. Alli Estrada PGY4
[2018-03-25] MEDS ORDERED: Peg-Electrolyte Oral Soln 4L (Golytely) PO ONE (16:23)
--- NOTE | 2018-03-25 16:32 | CP.PCM.CON ---
<Brittany Dawn - Last Filed: 03/25/18 16:28> History of Present Illness - History of Present Illness History of Present Illness: GI Fellow PGY5 Consult Note Mr. Baker is a 72 y.o male with a PMH of Throat cancer, Atrial fibrillation on Eliquis,COPD, Dementia, and /CVA w/ left sided weakness,TIA was brought to ER from [place] for rectal bleeding. Patient is a poor historian. History obtained from medical chart and nursing staff. Patient has PEG tube. He had EGD/PEG on 07/[address] Caldwell and found gastritis. Pt found to have severe constipation and fecal impaction on CT imaging. ROS: A 12pt ROS was negative except as above PMH: as stated above PSH: egd/peg 07/2017 Social Hx: neg for tobacco, drugs or etoh now Family HX: noncontributory at this time Past Patient History - Infectious Disease Hx of Infectious Diseases: None - Past Medical History & Family History Past Medical History?: Yes - Past Social History Smoking Status: Unknown If Ever Smoked - CARDIAC Hx Hypertension: Yes - PULMONARY Hx Chronic Obstructive Pulmonary Disease (COPD): Yes - NEUROLOGICAL HX Cerebrovascular Accident: Yes (L sided weakness) Hx Dementia: Yes - HEENT Hx HEENT Problems: No - RENAL Hx Chronic Kidney Disease: No - ENDOCRINE/METABOLIC Hx Endocrine Disorders: No - HEMATOLOGICAL/ONCOLOGICAL Hx Blood Disorders: Yes Hx Anemia: Yes Hx Cancer: Yes (throat) - INTEGUMENTARY Other/Comment: multiple ble skin discolorations - MUSCULOSKELETAL/RHEUMATOLOGICAL Hx Falls: Yes - GASTROINTESTINAL Hx Gastrointestinal Disorders: Yes (L INGUINAL HERNIA) Hx Liver Failure: Yes (cirrhosis) - GENITOURINARY/GYNECOLOGICAL Hx Incontinence: Yes - PSYCHIATRIC Hx Psychophysiologic Disorder: Yes Hx Depression: Yes - SURGICAL HISTORY Hx Surgeries: Yes - ANESTHESIA Hx Anesthesia Reactions: No Hx Malignant Hyperthermia: No Meds Allergies/Adverse Reactions: Allergies Allergy/AdvReac Type Severity Reaction Status Date / Time No Known Allergies Allergy Verified 03/24/18 18:42 - Medications Medications: Current Medications Apixaban (Eliquis) 5 mg PEG BID HEIDE; Protocol Last Admin: 03/25/18 09:28 Dose: 5 mg Arformoterol Tartrate (Brovana) 15 mcg IH [id number] HEIDE Last Admin: 03/25/18 08:40 Dose: 15 mcg Budesonide (Pulmicort Respules) 0.5 mg IH [id number] [facility] Last Admin: 03/25/18 08:40 Dose: 0.5 mg Collagenase (Santyl) 0 gm TOP DAILY [facility] Last Admin: 03/25/18 09:29 Dose: Not Given Diltiazem HCl (Cardizem) 30 mg PEG QID [facility] Last Admin: 03/25/18 09:24 Dose: 30 mg Famotidine (Pepcid) 40 mg PEG HS [facility] Last Admin: 03/25/18 00:49 Dose: 40 mg Furosemide (Lasix) 20 mg PEG DAILY [facility] Last Admin: 03/25/18 09:28 Dose: 20 mg Cefepime HCl (Maxipime 1gm) 1 gm in 100 mls @ 100 mls/hr IVPB Q8 [facility]; Protocol Stop: 04/03/18 11:49 Levetiracetam (Keppra) 500 mg PO Q12 [facility] Last Admin: 03/25/18 09:24 Dose: 500 mg Magnesium Oxide (Mag-Ox) 400 mg PEG BID [facility] Last Admin: 03/25/18 09:27 Dose: 400 mg Metoprolol Tartrate (Lopressor) 100 mg PEG BID [facility] Last Admin: 03/25/18 09:25 Dose: 100 mg Physical Exam - Constitutional Appears: Confused, Cachectic, Chronically Ill - Head Exam Head Exam: ATRAUMATIC, NORMAL INSPECTION, NORMOCEPHALIC - Eye Exam Eye Exam: EOMI, Normal appearance, PERRL - ENT Exam ENT Exam: Mucous Membranes Dry - Respiratory Exam Respiratory Exam: NORMAL BREATHING PATTERN - Cardiovascular Exam Cardiovascular Exam: RRR - GI/Abdominal Exam GI & Abdominal Exam: Normal Bowel Sounds, Soft. absent: Distended, Tenderness Additional comments: PEG, with no blood on aspiration, gastric fluid - Rectal Exam Additional comments: brown stool - Neurological Exam Neurological exam: Alert - Psychiatric Exam Psychiatric exam: Agitated - Skin Skin Exam: Dry, Normal Color Results - Vital Signs Recent Vital Signs: Last Vital Signs Temp 97.9 F 03/25/18 14:00 Pulse 107 H 03/25/18 14:00 Resp 20 03/25/18 14:00 BP 108/67 03/25/18 14:00 Pulse Ox 100 03/25/18 14:00 - Labs Result Diagrams: 03/24/18 13:50 03/24/18 13:50 Labs: Laboratory Results - last 24 hr 03/25/18 03/25/18 03/25/18 07:00 07:00 07:15 Hemoglobin A1c 5.7 Iron 24 L TIBC 211 L % Saturation 11 L Triglycerides 84 Cholesterol 80 L LDL Cholesterol Direct 50 HDL Cholesterol 27 L Vitamin B12 702 Folate > 20.0 Assessment & Plan - Assessment and Plan (Free Text) Assessment: 1. Constipation, fecal impaction 2. Poor nutrition 3. Sacral decub ulcers Plan: -Continue supportive care with pain control -No active GI bleeding, PEG aspirated with gastric fluid, +brown stool -H/H stable -CT imaging reviewed with severe constipation -May have intermittent rectal bleeding from hemorrhoids vs sterocolic ulcers -Aggressive bowel regimen with 1/2 Golytely, if tolerates will give full dose -Diet as tolerated via peg -Will need to discuss with family about possible flex sig if no improvement -Continue to follow closely <Charley Malik V - Last Filed: 03/25/18 17:59> Meds - Medications Medications: Current Medications Apixaban (Eliquis) 5 mg PEG BID [facility]; Protocol Last Admin: 03/25/18 17:04 Dose: Not Given Arformoterol Tartrate (Brovana) 15 mcg IH [id number] [facility] Last Admin: 03/25/18 08:40 Dose: 15 mcg Budesonide (Pulmicort Respules) 0.5 mg IH [id number] [facility] Last Admin: 03/25/18 08:40 Dose: 0.5 mg Collagenase (Santyl) 0 gm TOP DAILY [facility] Last Admin: 03/25/18 09:29 Dose: Not Given Diltiazem HCl (Cardizem) 30 mg PEG QID [facility] Last Admin: 03/25/18 17:03 Dose: 30 mg Famotidine (Pepcid) 40 mg PEG HS [facility] Last Admin: 03/25/18 00:49 Dose: 40 mg Furosemide (Lasix) 20 mg PEG DAILY [facility] Last Admin: 03/25/18 09:28 Dose: 20 mg Cefepime HCl (Maxipime 1gm) 1 gm in 100 mls @ 100 mls/hr IVPB Q8 [facility]; Protocol Stop: 04/03/18 11:49 Last Admin: 03/25/18 16:28 Dose: 100 mls/hr Levetiracetam (Keppra) 500 mg PO Q12 [facility] Last Admin: 03/25/18 09:24 Dose: 500 mg Magnesium Oxide (Mag-Ox) 400 mg PEG BID [facility] Last Admin: 03/25/18 17:02 Dose: 400 mg Metoprolol Tartrate (Lopressor) 100 mg PEG BID [facility] Last Admin: 03/25/18 17:04 Dose: Not Given Results - Vital Signs Recent Vital Signs: Last Vital Signs Temp 97.9 F 03/25/18 14:00 Pulse 102 H 03/25/18 17:04 Resp 20 03/25/18 14:00 BP 108/67 03/25/18 17:04 Pulse Ox 100 03/25/18 14:00 - Labs Result Diagrams: 03/24/18 13:50 03/24/18 13:50 Labs: Laboratory Results - last 24 hr 03/25/18 03/25/18 03/25/18 07:00 07:00 07:15 Hemoglobin A1c 5.7 Iron 24 L TIBC 211 L % Saturation 11 L Triglycerides 84 Cholesterol 80 L LDL Cholesterol Direct 50 HDL Cholesterol 27 L Vitamin B12 702 Folate > 20.0 Attending/Attestation - Attestation I have personally seen and examined this patient.: Yes I have fully participated in the care of the patient.: Yes I have reviewed all pertinent clinical information: Yes Notes (Text): This is an addendum to GI consult report dictated by the GI Fellow.The patient was seen and examined earlier. Medical records, lab studies, imagings were reviewed. Last 24 hours events reviewed. Agreed with the above treatment plan as outlined in GI Fellow 's notes with the addition of the following This skilled nursing resident was transferredto [facility] with a history of bleeg per rectum. Tolerating PEG tu Lavage did not reveal coffee-ground material Rectal examination done by the fellow was noted. Brown stool The CT scan was reviewed Rectal wall thickening noticed The differential diagnosis should include stercoral ulceration, hemorrhoids, diverticulosis, neoplasia also should be considered We will start the patient on GoLYTELf a gallon be given through PEG tube We Would consider flex sig based on the clinical course after discussing with the PCP and family in view of his multiple his other comdities which carry significant risk 03/25/18 17:54
--- NOTE | 2018-03-25 21:46 | CON ---
DATE: 03/25/2018 The patient is in room 575, bed 1. CHIEF COMPLAINT: Weakness since several days. HISTORY OF PRESENT ILLNESS This is a 72-year-old male recently discharged from [facility], who has a history of atrial fibrillation, hypertension, COPD, TIA, dementia, CVA with right-sided hemiparesis, depression, cirrhosis, throat cancer and high cholesterol, who was recently discharged. The patient had multiple decubitus ulcers, now admitted through the emergency room with a diagnosis of gastroenteritis, bleed. The patient had completed short course of antibiotics just recently, was discharged on the . In the emergency room, Dr. Tenzin Perdue states the chief complaint is GI problem, rectal bleeding, but there has been no 12-point review systems is performed. There has been no nausea, vomiting, abdominal pain or chest pain. No fevers, no chills. PAST MEDICAL HISTORY: Significant for cerebrovascular accident with right hemiparesis, TIA, dementia, chronic obstructive lung disease, hypertension, depression, cirrhosis and atrial fibrillation. PAST SURGICAL HISTORY: Noncontributory. The patient did have an inguinal hernia repair. ALLERGIES: THE PATIENT HAS NO KNOWN ALLERGIES. MEDICATIONS AT HOME: Keppra, Lopressor, Pepcid and Eliquis. PHYSICAL EXAMINATION: VITAL SIGNS: The patient is in bed with a temperature of 98.6, heart rate of 112, respiratory rate of 18, it was up to 22; blood pressure is 102/66, it was as low as 92/56. The patient's BMI is only 17 and saturating at 97% room air. HEENT: Examination of HEENT is unremarkable. NECK: Supple. LUNGS: Have decreased breath sounds. HEART: Normal S1, S2. ABDOMEN: Soft, nontender. No rebound or guarding. SKIN: He has multiple decubitus ulcers. LABORATORY EXAMINATION: Reveals a white count of 9.2, hemoglobin of 9. Coagulation is noted. Chemistries reveal a BUN of 45, creatinine of 0.7. CK is 474. There is no urinalysis. The patient had a chest x-ray which is negative and no infiltrates, and CT of the abdomen and pelvis is noted. Severe constipation, fecal impaction. No evidence of bowel obstruction. Bases of the lungs are noted to be atelectasis. The right lung is clear. ASSESSMENT AND PLAN: This is a 72-year-old male with atrial fibrillation, hypertension, chronic obstructive pulmonary disease, throat cancer, transient ischemic attack, dementia, cerebrovascular accident, depression and cirrhosis, who is anticoagulated as an outpatient, now presents with systemic inflammatory response syndrome with gastrointestinal bleeding. In a patient with cirrhosis and recent hospitalization, we will treat the patient with Maxipime 1 g IV every 8 hours pending pancultures and clinical response. The overall prognosis is quite poor for this patient with minimal quality of life. We will follow closely with you. The patient is cachectic with syndrome. Efra Craig MD
--- NOTE | 2018-03-26 00:46 | PN ---
DATE: 03/25/2018 SUBJECTIVE: The patient is a 72-year-old male. The patient is seen and examined on the bedside on 03/25/2018, looking comfortable except that has a decubitus ulcer. No fever. No chills. No nausea, vomiting, or diarrhea. No hematuria or hematochezia. No headache or dizziness. The patient is a very poor historian. PHYSICAL EXAMINATION: VITAL SIGNS: Temperature 97.9, pulse 102, respiratory rate 18, blood pressure 108/67. HEENT: Head normocephalic and atraumatic. Eyes PERRLA. Extraocular muscles intact. Conjunctivae clear. Nose patent. Mucous membrane moist. NECK: Supple. No carotid bruit. No JVD or thyromegaly. CHEST: Bilaterally symmetrical. HEART: S1 and S2 positive. LUNGS: Clear to auscultation. ABDOMEN: Soft. Bowel sounds present. No organomegaly. EXTREMITIES: No edema and no cyanosis, but has multiple decubitus ulcers. NEUROLOGICAL: The patient is awake and alert. Follows simple commands. LABORATORY DATA: White blood cells 9.3, hemoglobin 9.7, hematocrit 31.1, and platelets 348. Sodium 157, potassium 4.2, BUN 45, creatinine 0.7, and glucose 83. ASSESSMENT AND PLAN: Mr. Geo Ewing is a 72-year-old male with anemia, renal sufficiency, iron deficiency, abnormal liver function tests, came with lower gastrointestinal bleeding as per daughter, history of throat cancer, atrial fibrillation and on Eliquis, chronic obstructive pulmonary disease, dementia, history of cerebrovascular accident with left-sided weakness, transient ischemic attack, constipation, fecal impaction, poor nutrition. Continue supportive care. No active gastrointestinal bleeding at bowel movement. Slight brown stool. CT scan is reviewed. The patient has intermittent rectal bleeding from hemorrhoids versus ulcers. Aggressive bowel regimen with one to two Colyte, he tolerated with the full dose. As per Gastroenterology, discussion done with Dr. Guardado. Need debridement as per Dr. Guardado signed doing operating room but Eliquis must be held for 48 hours prior to intervention as per Dr. Guardado. Air mattress wedge pillow to off load pressure points. Repeat labs. We will follow up. Mariana Jim, MD [facility] # [id number] MTDD
--- NOTE | 2018-03-26 06:20 | CON ---
DATE: 03/25/2018 REFERRING PHYSICIAN: Mariana Fernandez MD REASON FOR CONSULT: Chronic lung disease and history of head and neck cancer. HISTORY OF PRESENT ILLNESS: This is a 72 years old gentleman with a past medical history significant for atrial fibrillation, hypertension, chronic lung disease, history of throat cancer, cirrhotic liver, dementia, history of recurrent CVA, has decubiti ulcers, brought in by the family because of rectal bleed and recently was discharged from the hospital. No hemoptysis or emesis. No hematuria. No leg pain or leg swelling. PAST MEDICAL HISTORY: As per history of present illness. ALLERGIES: NONE KNOWN. SOCIAL HISTORY: Nonsmoker and nondrinker. FAMILY HISTORY: No significant cardiopulmonary disease reported. MEDICATIONS: He is on Brovana inhaled twice a day, diltiazem 30 mg G-tube q.i.d., Eliquis 5 mg twice a day, Keppra 500 mg twice a day, Lasix 20 mg daily, metoprolol tartrate 100 mg twice a day, mag oxide 400 mg twice a day, cefepime 1 g IV every 8 hours, Pepcid 40 mg daily, Pulmicort inhaled twice a day, and Santyl at affected area. REVIEW OF SYSTEMS: No headache. No rhinitis. Has shortness of breath with exertion. No chest pain. No nausea. No vomiting. No diarrhea. Has decubiti ulcer. No leg pain or leg swelling. PHYSICAL EXAMINATION: VITAL SIGNS: Temperature is 98, heart rate is 102, respiratory rate is 20, blood pressure 108/67, and pulse ox 100% on room air. HEENT: Small oral cavity. Crowded airway. NECK: Supple. No JVD. LUNGS: Fair airflow with rhonchi. HEART: S1 and S2. ABDOMEN: Soft and nontender. No organomegaly. EXTREMITIES: There is no edema, has decubiti ulcer. NEUROLOGIC: Awake and follows simple commands. LABORATORY DATA: Shows hemoglobin 9.7, hematocrit 31.1, WBC 9.2, and platelet is 348. INR 1.85. PTT 31. Sodium 137, potassium 4.2, chloride 100, bicarbonate 33, BUN 45, creatinine 0.7, and calcium is 8.5. Iron is 24, hemoglobin A1c 5.7, AST 82, ALT 23, and alk phos is 91. Albumin is 2.9 and triglycerides 84. Cholesterol is 80. Vitamin B12 is 702. Folate more than 20. IMPRESSION AND PLAN: Chronic obstructive lung disease, atrial fibrillation, history of cerebrovascular accident, head and neck cancer requiring resection in the past, admitted with rectal bleed. In the past, had esophagogastroduodenoscopy and colonoscopy and found to have gastritis and severe constipation. The patient's G-tube and stomach was lavaged without any bleed or coffee ground. Rectal exam by GI shows brown stool. Pulmonary point of view, doing well. Continue bronchodilator. Keep head at 45 degrees. Aspiration precaution. Pressure ulcer precaution. Seen by GI, workup in progress. The patient is on anticoagulation. Need to follow H and H closely. Thank you and we will follow with you. Fatoumata Cruz MD
[2018-03-26] MEDS: Cefepime 1gm in NS 100ml 1 GM/100 ML BAG IVPB SCH ×3 (06:31→22:00)
[2018-03-26 07:40] LABS: HEMOGLOBIN 9.5 g/dL (14.0-18.0); MEAN CELL VOLUME 80.5 fl (80.0-105.0); MEAN CORPUSCULAR HEMOGLOBIN 24.7 pg (25.0-35.0); MEAN CORPUSCULAR HGB CONC 30.7 g/dl (31.0-37.0); MEAN PLATELET VOLUME 9.1 fl (7.0-11.0); RBC 3.84 10^6/uL (3.5-6.1); RED CELL DISTRIBUTION WIDTH 15.7 % (11.5-14.5); WHITE BLOOD COUNT 7.5 10^3/uL (4.5-11.0)
[2018-03-26] MEDS: Budesonide 0.5 mg/2 ml Inhal Susp UD IH SCH ×2 (07:40→21:18)
[2018-03-26] MEDS: Arformoterol 15 mcg/2 ml Inh Sol IH SCH ×2 (07:40→21:17)
[2018-03-26 08:42] LABS: ALB/GLOB RATIO 0.7 (1.1-1.8); ALBUMIN 2.9 g/dL (3.0-4.8); ALT/SGPT 47 U/L (7-56); AST/SGOT 67 U/L (17-59); BLOOD UREA NITROGEN 29 mg/dL (7-21); CALCIUM 8.5 mg/dL (8.4-10.5); GFR NON-AFRICAN AMERICAN > 60
[2018-03-26] MEDS: Magnesium Oxide 400 mg Tab UD PEG SCH ×2 (10:09→18:30)
--- NOTE | 2018-03-26 11:08 | CP.PCM.PCO ---
Physician Communication Note - Physician Communication Note Physician Communication Note: OR WED-L Hip decubitus debride(Eliwallyis d/c)
--- NOTE | 2018-03-26 11:28 | PN ---
DATE: 03/26/2018 SUBJECTIVE: The patient is in bed, in no acute distress, was seen early this morning. Comfortable. Chronically debilitated. PHYSICAL EXAMINATION: VITAL SIGNS: Temperature of 97, blood pressure is 108/60, respiratory rate of 20 and heart rate of 107. BMI is 17. HEENT: Examination of HEENT is unremarkable. NECK: Supple. LUNGS: Have decreased breath sounds. HEART: Normal S1 and S2. ABDOMEN: Soft, nontender. LABORATORY DATA: Laboratory examination reveals a white count of 7.5, hemoglobin is noted. BUN of 29, creatinine of 0.7. Chemistries are noted. Microbiology was reviewed. ASSESSMENT AND PLAN: A 72-year-old male, recently discharged from our hospital with atrial fibrillation, hypertension, chronic obstructive lung disease, throat cancer, transient ischemic attack, dementia, cerebrovascular accident, depression, cirrhosis, who is anticoagulated as outpatient. Presents now with systemic inflammatory response syndrome with gastrointestinal bleeding in a patient with cirrhosis. Day #2 of Maxipime. Awaiting for culture results. Dr. Fernandez's note is reviewed. We will follow with you. Efra Craig MD
[2018-03-26] MEDS: Collagenase 250 Units/gm Ointment(30 gm) TOP SCH (17:35)
--- NOTE | 2018-03-27 00:20 | PN ---
DATE: 03/26/2018 PULMONARY PROGRESS NOTE REFERRING PHYSICIAN: Dr. Fernandez SUBJECTIVELY: He is lying in the bed head at 45 degrees. Night was unremarkable. No cough. No sputum production. No nausea, no vomiting, no diarrhea. No leg pain or leg swelling. Does have a decubiti ulcer. OBJECTIVE: GENERAL: In no acute distress. VITAL SIGNS: Temperature is 98, heart rate is 111, respiratory rate is 18, blood pressure 111/65, pulse ox 98% on nasal cannula. HEENT: Moist mucous membrane. Crowded airway. Small oral cavity. NECK: Supple. No JVD. LUNGS: Have a few scattered rhonchi. HEART: S1 and S2. ABDOMEN: Soft, nontender, no organomegaly. G-tube area looks okay. EXTREMITIES: There is no edema, has a decubiti ulcer. NEUROLOGIC: Awake and alert, follows simple command. MEDICATIONS: He is on Brovana inhaled twice a day, Cardizem 30 mg four times a day, iron IV sucrose 100 mg daily, Keppra 500 mg twice a day, Lasix 20 mg daily, metoprolol tartrate 100 mg twice a day, mag oxide 400 mg twice a day, cefepime 1 g IV every 8 hours, Pepcid 40 mg daily, Pulmicort inhaled twice a day, Santyl at affected area. LABORATORY DATA: Shows hemoglobin 9.5, hematocrit 30.9, WBC 7.5, platelet is 367. Sodium 140, potassium 3.8, chloride 101, bicarbonate 31, BUN 29, creatinine 0.7, glucose 103, calcium 8.5, AST 67, ALT 47, alk phos is 74. Albumin 2.9. TSH 4.06. Microbiology, blood culture has been negative. IMPRESSION AND PLAN: Chronic obstructive lung disease, atrial fibrillation, history of cerebrovascular accident, history of head and neck cancer requiring resection in the past, admitted with rectal bleed, decubiti ulcer, gastroesophageal reflux disease, has a gastritis, severe constipation, has a G-tube. Pulmonary point of view, doing okay. Keep head at 45 degrees. Bronchodilator, aspiration precaution. Gastric prophylaxis. Off anticoagulation because of the bleeding. Need to control the heart rate, may add metoprolol tartrate 12.5 mg twice a day. Had thromboembolic disease. Thank you and we will follow with you. Fatoumata Cruz MD [facility] # [id number]
--- NOTE | 2018-03-27 00:22 | PN ---
DATE: 03/26/2018 SUBJECTIVE: The patient was seen and examined on the bedside on 03/26/2018. No change in the status. Chronically debilitated. No fever. No chills. No hematuria or hematochezia. PHYSICAL EXAMINATION: VITAL SIGNS: Temperature 97, blood pressure 108/60, respiratory rate 20. HEENT: Head normocephalic, atraumatic. Eyes PERRLA. Extraocular muscles intact. Conjunctivae clear. Nose patent. NECK: Supple. No carotid bruit. No JVD or thyromegaly. CHEST: Bilaterally symmetrical. HEART: S1 and S2 positive. LUNGS: Clear to auscultation. ABDOMEN: Soft. Bowel sounds positive. No organomegaly. EXTREMITIES: No edema. No cyanosis. NEUROLOGICAL: The patient is awake and alert. MEDICATIONS: Reviewed by me. Brovana, Cardizem, normal saline, Lasix, Lopressor, magnesium oxide, cefepime, Pepcid, Pulmicort, Santyl. LABORATORY DATA: White blood cells 7.5, hemoglobin 9.5, hematocrit 30.9, platelets 367. Sodium 140, potassium 3.8, BUN 29, creatinine 0.7, glucose 103. ASSESSMENT AND PLAN: Mr. Geo Ewing, 72-year-old male with anemia, renal insufficiency, abnormal liver function tests, has decubitus ulcers at different stages of healing, history of atrial fibrillation, hypertension, chronic obstructive lung disease, throat cancer, transient ischemic attack, dementia, cerebrovascular accident, depression, cirrhosis, systemic inflammatory response syndrome, gastrointestinal bleeding. The patient with cirrhosis of the liver. Day 2 of Maxipime. Waiting for the cultures. Reviewed the Infectious Disease notes. Reviewed Dr. Carson' communication report. According to him, the patient will go to OR for decubitus debridement. Maurois is on hold. We will follow up. Mariana Fernandez MD MTDD
[2018-03-27] MEDS: Cefepime 1gm in NS 100ml 1 GM/100 ML BAG IVPB SCH ×3 (05:35→22:18)
[2018-03-27] MEDS: Budesonide 0.5 mg/2 ml Inhal Susp UD IH SCH ×2 (07:25→21:45)
[2018-03-27] MEDS: Arformoterol 15 mcg/2 ml Inh Sol IH SCH ×2 (07:25→21:39)
[2018-03-27 07:45] LABS: HEMOGLOBIN 10.2 g/dL (14.0-18.0); MEAN CELL VOLUME 80.2 fl (80.0-105.0); MEAN CORPUSCULAR HEMOGLOBIN 25.2 pg (25.0-35.0); MEAN CORPUSCULAR HGB CONC 31.5 g/dl (31.0-37.0); MEAN PLATELET VOLUME 8.9 fl (7.0-11.0); RBC 4.04 10^6/uL (3.5-6.1); RED CELL DISTRIBUTION WIDTH 15.8 % (11.5-14.5); WHITE BLOOD COUNT 9.3 10^3/uL (4.5-11.0)
[2018-03-27 08:03] LABS: ALB/GLOB RATIO 0.7 (1.1-1.8); ALT/SGPT 49 U/L (7-56); AST/SGOT 66 U/L (17-59); BLOOD UREA NITROGEN 24 mg/dL (7-21); CALCIUM 8.2 mg/dL (8.4-10.5); GFR NON-AFRICAN AMERICAN > 60
--- NOTE | 2018-03-27 09:25 | CP.PCM.PN ---
<Vicente Read - Last Filed: 03/27/18 11:02> Subjective - Date & Time of Evaluation Date of Evaluation: 03/27/18 Time of Evaluation: 09:20 - Subjective Subjective: PGY-2 GI progress note for Dr Malik No acute events noted overnight. Patient denied any discomfort or pain. Complained of urinary incontinence. PEG tube intact and capped. Patient maintained NPO. Had normal bowel movement yesterday. Denied any further rectal bleeding. Right-sided hemiparesis. Objective - Vital Signs/Intake and Output Vital Signs (last 24 hours): Temp Pulse Resp BP Pulse Ox 98.9 F 100 H 18 111/65 95 03/27/18 08:10 03/27/18 08:10 03/27/18 08:10 03/26/18 22:45 03/27/18 08:10 Intake and Output: 03/27/18 03/27/18 06:59 18:59 Intake Total 0 Balance 0 - Medications Medications: Current Medications Arformoterol Tartrate (Brovana) 15 mcg IH [id number] [facility] Last Admin: 03/27/18 07:25 Dose: 15 mcg Budesonide (Pulmicort Respules) 0.5 mg IH [id number] [facility] Last Admin: 03/27/18 07:25 Dose: 0.5 mg Collagenase (Santyl) 0 gm TOP DAILY [facility] Last Admin: 03/26/18 17:35 Dose: Not Given Diltiazem HCl (Cardizem) 30 mg PEG QID [facility] Last Admin: 03/26/18 21:24 Dose: 30 mg Famotidine (Pepcid) 40 mg PEG HS [facility] Last Admin: 03/26/18 21:23 Dose: 40 mg Furosemide (Lasix) 20 mg PEG DAILY [facility] Last Admin: 03/26/18 10:10 Dose: 20 mg Cefepime HCl (Maxipime 1gm) 1 gm in 100 mls @ 100 mls/hr IVPB Q8 [facility]; Protocol Stop: 04/03/18 11:49 Last Admin: 03/27/18 05:35 Dose: 100 mls/hr Iron Sucrose 100 mg/ Sodium (Chloride) 105 mls @ 210 mls/hr IVPB DAILY [facility] Stop: 03/28/18 10:29 Levetiracetam (Keppra) 500 mg PO Q12 [facility] Last Admin: 03/26/18 21:23 Dose: 500 mg Magnesium Oxide (Mag-Ox) 400 mg PEG BID [facility] Last Admin: 03/26/18 18:30 Dose: 400 mg Metoprolol Tartrate (Lopressor) 100 mg PEG BID [facility] Last Admin: 03/26/18 18:30 Dose: 100 mg - Labs Labs: 03/27/18 07:20 03/27/18 07:20 PT 21.3 SECONDS (9.4-12.5) H 03/24/18 13:50 INR 1.85 03/24/18 13:50 APTT 31.4 Seconds (25.1-36.5) 03/24/18 13:50 - Additional Findings Additional findings: - Constitutional Appears: Confused, Cachectic, Chronically Ill - Head Exam Head Exam: ATRAUMATIC, NORMAL INSPECTION, NORMOCEPHALIC - Eye Exam Eye Exam: EOMI, Normal appearance, PERRL - ENT Exam ENT Exam: Mucous Membranes Dry - Respiratory Exam Respiratory Exam: NORMAL BREATHING PATTERN - Cardiovascular Exam Cardiovascular Exam: RRR - GI/Abdominal Exam GI & Abdominal Exam: Normal Bowel Sounds, Soft. absent: Distended, Tenderness Additional comments: PEG, with no blood on aspiration, gastric fluid - Rectal Exam Additional comments: performed 03/25 by GI fellow - brown stool - Neurological Exam Neurological exam: Alert - Psychiatric Exam Psychiatric exam: Agitated - Skin Skin Exam: Dry, Normal Color Assessment and Plan - Assessment and Plan (Free Text) Plan: 1. Constipation, fecal impaction 2. Poor nutrition 3. Sacral decub ulcers Plan: -Continue supportive care with pain control -No active GI bleeding, PEG aspirated with gastric fluid, +brown stool -H/H stable -CT imaging reviewed with severe constipation -patient had multiple large bowel movements after 1/2 Golytely -May have intermittent rectal bleeding from hemorrhoids vs sterocolic ulcers -Diet as tolerated via peg - initial rate 15ml, goal rate 45ml -Will need to discuss with family about possible flex sig if no improvement -From GI perspective patient is okay to be restarted on eliquis. Patient to go for debridement with general surgery tomorrow - would recommend anticoagulation in the interim. Seen and discussed with Dr Malik. <Charley Malik V - Last Filed: 03/28/18 00:36> Objective - Vital Signs/Intake and Output Vital Signs (last 24 hours): Temp Pulse Resp BP Pulse Ox 97.7 F 110 H 20 127/76 98 03/27/18 23:11 03/27/18 23:11 03/27/18 23:11 03/27/18 23:11 03/27/18 23:11 - Medications Medications: Current Medications Arformoterol Tartrate (Brovana) 15 mcg IH [id number] [facility] Last Admin: 03/27/18 21:39 Dose: 15 mcg Budesonide (Pulmicort Respules) 0.5 mg IH [id number] [facility] Last Admin: 03/27/18 21:45 Dose: 0.5 mg Collagenase (Santyl) 0 gm TOP DAILY [facility] Last Admin: 03/27/18 14:49 Dose: 1 applic Diltiazem HCl (Cardizem) 30 mg PEG QID [facility] Last Admin: 03/27/18 22:17 Dose: 30 mg Famotidine (Pepcid) 40 mg PEG HS [facility] Last Admin: 03/27/18 22:17 Dose: 40 mg Furosemide (Lasix) 20 mg PEG DAILY [facility] Last Admin: 03/27/18 10:52 Dose: 20 mg Cefepime HCl (Maxipime 1gm) 1 gm in 100 mls @ 100 mls/hr IVPB Q8 [facility]; Protocol Stop: 04/03/18 11:49 Last Admin: 03/27/18 22:18 Dose: 100 mls/hr Iron Sucrose 100 mg/ Sodium (Chloride) 105 mls @ 210 mls/hr IVPB DAILY [facility] Stop: 03/28/18 10:29 Last Admin: 03/27/18 10:47 Dose: 210 mls/hr Lactated Ringer's (Lactated Ringer's) 1,000 mls @ 75 mls/hr IV .[id number] [facility] Last Admin: 03/28/18 00:09 Dose: 75 mls/hr Levetiracetam (Keppra) 500 mg PO Q12 [facility] Last Admin: 03/27/18 22:17 Dose: 500 mg Magnesium Oxide (Mag-Ox) 400 mg PEG BID [facility] Last Admin: 03/27/18 17:30 Dose: 400 mg Metoprolol Tartrate (Lopressor) 100 mg PEG BID [facility] Last Admin: 03/27/18 17:32 Dose: 100 mg - Labs Labs: 03/27/18 07:20 03/27/18 07:20 PT 21.3 SECONDS (9.4-12.5) H 03/24/18 13:50 INR 1.85 03/24/18 13:50 APTT 31.4 Seconds (25.1-36.5) 03/24/18 13:50 Attending/Attestation - Attestation I have personally seen and examined this patient.: Yes I have fully participated in the care of the patient.: Yes I have reviewed all pertinent clinical information, including history, physical exam and plan: Yes Notes (Text): This is an addendum to GI followup report dictated by the Materials Planner/Production Planner. The patient was seen and evaluated earlier. Medical records, lab studies, imagings were reviewed. Last 24 hours events reviewed. Agreed with the above treatment plan as outlined in Materials Planner/Production Planner 's notes with the addition of the following Hb remains stable No episode of bleeding per rectum or melena History of fecal impaction History of paroxysmal a.fib was on eliquis which has been on hold for surgical procedure - wound debridement gi perspective patient can be resumed on anticoagulation if significant drop in blood count or BRPR or melena Would consider colonoscopy and endoscopy evaluation 03/28/18 00:31
--- NOTE | 2018-03-27 10:27 | CP.PCM.PCO ---
Physician Communication Note - Physician Communication Note Physician Communication Note: OR Debridement tomorrow
[2018-03-27] MEDS: Magnesium Oxide 400 mg Tab UD PEG SCH ×2 (10:52→17:30)
[2018-03-27] MEDS: Collagenase 250 Units/gm Ointment(30 gm) TOP SCH (14:49)
--- NOTE | 2018-03-27 19:15 | PN ---
DATE: 03/27/2018 SUBJECTIVE: The patient is in bed, in no acute distress, nontoxic. PHYSICAL EXAMINATION: VITAL SIGNS: Temperature is 98, blood pressure is 130/70, respiratory rate of 16. HEENT: Examination of HEENT is unremarkable. NECK: Supple. LUNGS: Have decreased breath sounds. HEART: Normal S1 and S2. ABDOMEN: Soft. LABORATORY EXAMINATION: Reveals a white count of 9.3, hemoglobin of 10. Chemistries are noted with BUN of 24, creatinine of 0.7. Microbiology reveals the blood cultures are negative. Review of orders reveals the patient to be on cefepime. Dr. Carson' note is reviewed and is planned on debridement for tomorrow. ASSESSMENT AND PLAN: This is a 72-year-old who was just recently discharged with atrial fibrillation, hypertension, chronic obstructive lung disease, throat cancer, transient ischemic attack, dementia, cerebrovascular accident, depression, cirrhosis with systemic inflammatory response syndrome and gastrointestinal bleeding, on day #3 of Maxipime. The patient is decubitus debridement in a.m. We will check on the OR . Efra Craig MD
[2018-03-27] MEDS ORDERED: Phytonadione 10 mg/ml Inj (Adult) SC ONE (21:02)
--- NOTE | 2018-03-27 23:47 | PN ---
DATE: 03/27/2018 PULMONARY PROGRESS NOTE REFERRING PHYSICIAN: Mariana Fernandez MD. SUBJECTIVE: The patient is lying in the bed, head at 45 degrees. Night was unremarkable. Cough is better. No shortness of breath. No chest pain. No nausea. No vomiting, diarrhea, leg pain or leg swelling. OBJECTIVE: GENERAL: In no acute distress. VITAL SIGNS: Temperature is 98, heart rate is 99, respiratory rate is 18, blood pressure 121/81, pulse ox 100% on nasal cannula. HEENT: Moist mucous membrane. Crowded airway. NECK: Supple. No JVD. LUNGS: Have a fair airflow with rhonchi. HEART: S1 and S2. ABDOMEN: Soft, nontender. No organomegaly. EXTREMITIES: There is no edema. NEUROLOGICAL: Awake and alert. Follows simple command. MEDICATIONS: He is on Brovana inhaled twice a day, Cardizem 30 mg G-tube four times a day, iron sucrose IV 100 mg daily, Keppra 500 mg twice a day, Lasix 20 mg daily, metoprolol tartrate 100 mg twice a day, mag oxide 400 mg daily, cefepime 1 g IV every 8 hours, Pepcid 40 mg daily, Pulmicort inhaled twice a day. LABORATORY DATA: Shows hemoglobin 10.2, hematocrit 32.4, WBC 9.4, platelet count if 376. Sodium 139, potassium 4.1, chloride 104, bicarbonate 27, BUN 24, creatinine 0.7, glucose 104, calcium 8.2, AST 66, ALT 49, alk phos is 76, albumin 3. Microbiology: Blood culture, no growth. IMPRESSION AND PLAN: Chronic obstructive lung disease, atrial fibrillation, history of cerebrovascular accident, history of head and neck cancer, status post resection. Admitted with rectal bleed, decubiti ulcer, gastroesophageal reflux disease, gastritis, severe constipation, gastrostomy tube. Pulmonary point of view, doing okay. Continue bronchodilator. Keep head at 45 degrees. Gastric prophylaxis. Deep venous thrombosis prophylaxis. Infectious Disease followup. Seen by Surgery for possible debridement of the wound. Pulmonary status is optimized. Thank you and we will follow with you. Fatoumata Cruz MD
[2018-03-28] MEDS: Lactated Ringer's 1,000 ML IV SCH ×2 (00:09→20:37)
[2018-03-28] MEDS: Cefepime 1gm in NS 100ml 1 GM/100 ML BAG IVPB SCH ×3 (06:14→21:58)
[2018-03-28] MEDS: Budesonide 0.5 mg/2 ml Inhal Susp UD IH SCH ×2 (07:36→20:21)
[2018-03-28] MEDS: Arformoterol 15 mcg/2 ml Inh Sol IH SCH ×2 (07:36→20:21)
[2018-03-28 07:43] LABS: BASO # 0.01 K/mm3 (0.0-2.0); BASO % 0.1 % (0.0-3.0); EOS # 0.1 (0.0-0.7); EOS % 0.7 % (1.5-5.0); GRAN # 8.89 (1.4-6.5); GRAN % 82.4 % (50.0-68.0); HEMOGLOBIN 10.5 g/dL (14.0-18.0); LYMPH # 1.3 (1.2-3.4); LYMPH % 12.1 % (22.0-35.0); MEAN CELL VOLUME 80.3 fl (80.0-105.0); MEAN CORPUSCULAR HEMOGLOBIN 24.9 pg (25.0-35.0); MEAN CORPUSCULAR HGB CONC 31.1 g/dl (31.0-37.0); MEAN PLATELET VOLUME 8.9 fl (7.0-11.0); MONO # 0.5 (0.1-0.6); MONO % 4.7 % (1.0-6.0); RBC 4.21 10^6/uL (3.5-6.1); RED CELL DISTRIBUTION WIDTH 15.6 % (11.5-14.5); WHITE BLOOD COUNT 10.8 10^3/uL (4.5-11.0)
[2018-03-28 07:51] LABS: INR 1.31; PARTIAL THROMBOPLASTIN TIME 30.8 Seconds (25.1-36.5); PROTHROMBIN TIME 15.1 SECONDS (9.4-12.5)
[2018-03-28 08:15] LABS: BLOOD UREA NITROGEN 19 mg/dL (7-21); CALCIUM 9.1 mg/dL (8.4-10.5); GFR NON-AFRICAN AMERICAN > 60
--- NOTE | 2018-03-28 08:15 | PN ---
DATE: 03/27/2018 SUBJECTIVE: The patient was seen and examined on the bedside on 03/27/2018. Progress notes are for 03/27/2018. No change in the status, looking comfortable. No nausea, vomiting, diarrhea. No hematuria or hematochezia. No swelling of the legs. No chest pain. No palpitation. Do not look like in acute distress. PHYSICAL EXAMINATION: VITAL SIGNS: Temperature 98, blood pressure 130/79, respiratory rate 16, pulse is 80. HEENT: Head normocephalic, atraumatic. Eyes PERRLA. Extraocular muscles intact. Conjunctivae clear. Nose patent. NECK: Supple. No carotid bruit. No JVD or thyromegaly. CHEST: Bilaterally symmetrical. HEART: S1 and S2 positive. LUNGS: Clear to auscultation. ABDOMEN: Soft. Bowel sounds positive. No organomegaly. EXTREMITIES: No edema. No cyanosis. NEUROLOGICAL: The patient is awake, alert. Obeying simple orders. MEDICATIONS: Brovana, Cardizem, iron, Keppra, lactated Ringer, Lasix, Lopressor, magnesium oxide, Maxipime, Pepcid, Pulmicort. LABORATORY DATA: White blood cells 9.3, hemoglobin 10.2, hematocrit 32.4, platelets 376. Sodium 139, potassium 4.1, BUN 24, creatinine 0.7, glucose 104, calcium 8.2. ASSESSMENT AND PLAN: Mr. Geo Ewing, 72-year-old male with anemia, renal insufficiency, hypocalcemia, abnormal liver function test, has history of neck and tongue cancer, had dysphagia, having percutaneous endoscopic gastrostomy tube, history of atrial fibrillation, hypertension, chronic obstructive lung disease, transient ischemic attack, dementia, cerebrovascular accident, depression, cirrhosis of liver, systemic inflammatory response syndrome. Came with gastrointestinal bleeding . The patient is going for decubitus ulcer debridement tomorrow in OR. Meanwhile, continue present treatment. Gastrointestinal, deep venous thrombosis prophylaxis. Repeat labs. Appreciated Dr. Garcia Carson' communication report and Dr. Craig's and Dr. Cruz's notes. We will follow up. Mariana Fernandez MD [facility] # [id number] MTDJaclyn
--- NOTE | 2018-03-28 10:48 | PN ---
DATE: 03/28/2018 SUBJECTIVE: The patient is in bed in no acute distress, nontoxic. PHYSICAL EXAMINATION: VITAL SIGNS: Temperature is 97, blood pressure is 140/60, respiratory rate of 18, heart rate of 110. HEENT: Examination of HEENT is unremarkable. NECK: Supple. LUNGS: Have decreased breath sounds. HEART: Normal S1, S2. ABDOMEN: Soft, nontender. LABORATORY EXAMINATION: Reveals a white count of 10, hemoglobin of 10, platelets of 437. Chemistries are noted. BUN of 19, creatinine of 0.9 and microbiology reveals the blood cultures are negative and laboratory is noted. ASSESSMENT AND PLAN: A 72-year-old who was recently discharged with atrial fibrillation, hypertension, chronic obstructive lung disease, throat cancer, transient ischemic attack, dementia, cerebrovascular accident, depression, cirrhosis, systemic inflammatory response syndrome with gastrointestinal bleeding and day #4 of Maxipime and the patient is scheduled for OR debridement today as per Dr. Carson' note. We will follow with you. Efra Craig MD
[2018-03-28] MEDS: Magnesium Oxide 400 mg Tab UD PEG SCH ×2 (10:51→18:03)
[2018-03-28] MEDS: Collagenase 250 Units/gm Ointment(30 gm) TOP SCH (10:53)
--- NOTE | 2018-03-28 11:04 | CP.PCM.PN ---
<Vicente Read - Last Filed: 03/28/18 11:01> Subjective - Date & Time of Evaluation Date of Evaluation: 03/28/18 Time of Evaluation: 11:01 - Subjective Subjective: PGY-2 GI progress note for Dr Malik IV infiltrated overnight - restarted new IV. Patient denied any discomfort or pain. Complained of urinary incontinence. PEG tube intact and capped. Patient maintained NPO. Had normal bowel movement yesterday. Denied any further rectal bleeding. Right-sided hemiparesis. Objective - Vital Signs/Intake and Output Vital Signs (last 24 hours): Temp Pulse Resp BP Pulse Ox 97.5 F L 70 18 141/60 98 03/28/18 06:00 03/28/18 10:51 03/28/18 06:00 03/28/18 10:51 03/28/18 06:00 - Medications Medications: Current Medications Arformoterol Tartrate (Brovana) 15 mcg IH [id number] [facility] Last Admin: 03/28/18 07:36 Dose: 15 mcg Budesonide (Pulmicort Respules) 0.5 mg IH [id number] [facility] Last Admin: 03/28/18 07:36 Dose: 0.5 mg Collagenase (Santyl) 0 gm TOP DAILY [facility] Last Admin: 03/28/18 10:53 Dose: 1 applic Diltiazem HCl (Cardizem) 30 mg PEG QID [facility] Last Admin: 03/28/18 10:51 Dose: 30 mg Famotidine (Pepcid) 40 mg PEG HS [facility] Last Admin: 03/27/18 22:17 Dose: 40 mg Furosemide (Lasix) 20 mg PEG DAILY [facility] Last Admin: 03/28/18 10:51 Dose: 20 mg Cefepime HCl (Maxipime 1gm) 1 gm in 100 mls @ 100 mls/hr IVPB Q8 [facility]; Protocol Stop: 04/03/18 11:49 Last Admin: 03/28/18 06:14 Dose: 100 mls/hr Lactated Ringer's (Lactated Ringer's) 1,000 mls @ 75 mls/hr IV .[id number] [facility] Last Admin: 03/28/18 00:09 Dose: 75 mls/hr Levetiracetam (Keppra) 500 mg PO Q12 [facility] Last Admin: 03/28/18 10:51 Dose: 500 mg Magnesium Oxide (Mag-Ox) 400 mg PEG BID [facility] Last Admin: 03/28/18 10:51 Dose: 400 mg Metoprolol Tartrate (Lopressor) 100 mg PEG BID [facility] Last Admin: 03/28/18 10:50 Dose: 100 mg - Labs Labs: 03/28/18 07:00 03/28/18 07:00 PT 15.1 SECONDS (9.4-12.5) H 03/28/18 07:00 INR 1.31 03/28/18 07:00 APTT 30.8 Seconds (25.1-36.5) 03/28/18 07:00 - Additional Findings Additional findings: - Constitutional Appears: Confused, Cachectic, Chronically Ill - Head Exam Head Exam: ATRAUMATIC, NORMAL INSPECTION, NORMOCEPHALIC - Eye Exam Eye Exam: EOMI, Normal appearance, PERRL - ENT Exam ENT Exam: Mucous Membranes Dry - Respiratory Exam Respiratory Exam: NORMAL BREATHING PATTERN - Cardiovascular Exam Cardiovascular Exam: RRR - GI/Abdominal Exam GI & Abdominal Exam: Normal Bowel Sounds, Soft. absent: Distended, Tenderness Additional comments: PEG, with no blood on aspiration, gastric fluid - Rectal Exam Additional comments: performed 03/25 by GI fellow - brown stool - Neurological Exam Neurological exam: Alert - Psychiatric Exam Psychiatric exam: Agitated - Skin Skin Exam: Dry, Normal Color Assessment and Plan - Assessment and Plan (Free Text) Plan: 1. Constipation, fecal impaction 2. Poor nutrition 3. Sacral decub ulcers Plan: -Continue supportive care with pain control -No active GI bleeding, PEG aspirated with gastric fluid, +brown stool -H/H stable -CT imaging reviewed with severe constipation -patient had multiple large bowel movements after 1/2 Golytely -May have intermittent rectal bleeding from hemorrhoids vs sterocolic ulcers -Diet as tolerated via peg - initial rate 15ml, goal rate 45ml -Will need to discuss with family about possible flex sig if no improvement -From GI perspective patient is okay to be restarted on eliquis if no drop in Hgb or melena or BRBPR -Patient to go for debridement with general surgery today Seen and discussed with Dr Malik. <Charley Malik V - Last Filed: 03/29/18 01:23> Objective - Vital Signs/Intake and Output Vital Signs (last 24 hours): Temp Pulse Resp BP Pulse Ox 98.3 F 107 H 18 116/77 98 03/28/18 21:43 03/28/18 21:54 03/28/18 21:43 03/28/18 21:54 03/28/18 21:43 Intake and Output: 03/28/18 03/29/18 18:59 06:59 Intake Total 0 Output Total 75 Balance -75 - Medications Medications: Current Medications Arformoterol Tartrate (Brovana) 15 mcg IH [id number] [facility] Last Admin: 03/28/18 20:21 Dose: 15 mcg Budesonide (Pulmicort Respules) 0.5 mg IH [id number] [facility] Last Admin: 03/28/18 20:21 Dose: 0.5 mg Collagenase (Santyl) 0 gm TOP DAILY [facility] Last Admin: 03/28/18 10:53 Dose: 1 applic Diltiazem HCl (Cardizem) 30 mg PEG QID [facility] Last Admin: 03/28/18 21:54 Dose: 30 mg Famotidine (Pepcid) 40 mg PEG HS [facility] Last Admin: 03/28/18 21:54 Dose: 40 mg Furosemide (Lasix) 20 mg PEG DAILY [facility] Last Admin: 03/28/18 10:51 Dose: 20 mg Cefepime HCl (Maxipime 1gm) 1 gm in 100 mls @ 100 mls/hr IVPB Q8 [facility]; Protocol Stop: 04/03/18 11:49 Last Admin: 03/28/18 21:58 Dose: 100 mls/hr Levetiracetam (Keppra) 500 mg PO Q12 [facility] Last Admin: 03/28/18 21:57 Dose: 500 mg Magnesium Oxide (Mag-Ox) 400 mg PEG BID [facility] Last Admin: 03/28/18 18:03 Dose: 400 mg Metoprolol Tartrate (Lopressor) 100 mg PEG BID [facility] Last Admin: 03/28/18 18:03 Dose: Not Given Morphine Sulfate (Morphine) 2 mg IVP Q15M PRN PRN Reason: Pain, moderate (4-7) Ondansetron HCl (Zofran Inj) 4 mg IVP ONCE PRN PRN Reason: Nausea/Vomiting Silver Sulfadiazine (Silvadene 1% 25 Gm) 0 gm TP BID [facility] Last Admin: 03/28/18 18:04 Dose: Not Given - Labs Labs: 03/28/18 07:00 03/28/18 07:00 PT 15.1 SECONDS (9.4-12.5) H 03/28/18 07:00 INR 1.31 03/28/18 07:00 APTT 30.8 Seconds (25.1-36.5) 03/28/18 07:00 Attending/Attestation - Attestation I have personally seen and examined this patient.: Yes I have fully participated in the care of the patient.: Yes I have reviewed all pertinent clinical information, including history, physical exam and plan: Yes
[2018-03-28] MEDS ORDERED: Bupivacaine 0.5% 50 ML IJ ONE (11:22)
[2018-03-28] MEDS ORDERED: Lidocaine 1% Inj (20ml) ONE ×2 (11:22→12:44)
[2018-03-28] MEDS ORDERED: Dextrose 50% SYRINGE Inj (50 ml) ONE (12:07)
[2018-03-28] MEDS ORDERED: Dextrose 50% SYRINGE Inj (50 ml) IVP ONE (12:10)
[2018-03-28] MEDS ORDERED: Midazolam 2 MG/2 ML VIAL ONE (12:43)
[2018-03-28] MEDS ORDERED: Propofol 10 mg/ml Inj (20 ML) ONE (12:43)
--- NOTE | 2018-03-28 13:21 | PCM.SURG1 ---
Surgeon's Initial Post Op Note - Surgeon's Notes Surgeon: Dr. Carson Coding Clerk: Dr. Cota PGY23 Type of Anesthesia: IV Sedation, Local Pre-Operative Diagnosis: Left hip decubitus ulcer Operative Findings: See operative dictation Post-Operative Diagnosis: Left hip decubitus ulcer Operation Performed: Debridement of left hip decubitus ulcer Specimen/Specimens Removed: Necrotic tissue, Deep tissue culture Estimated Blood Loss: EBL {In ML}: 1 Blood Products Given: N/A Drains Used: No Drains Post-Op Condition: Good Date of Surgery/Procedure: 03/28/18 Time of Surgery/Procedure: 13:21
[2018-03-28] MEDS ORDERED: Morphine 2 mg/ml ISec IVP PRN (13:22)
[2018-03-28] MEDS ORDERED: Lactated Ringer's 1,000 ML IV SCH (13:30)
[2018-03-28] MEDS ORDERED: Silver Sulfadiazine 1% Cream (25 gm) TP SCH (18:00)
--- NOTE | 2018-03-28 22:42 | PN ---
DATE: 03/28/2018 PULMONARY PROGRESS NOTE REFERRING PHYSICIAN: Mariana Fernandez MD. SUBJECTIVE: He is lying in the bed, head at 45 degrees. Night was unremarkable. No headache, no rhinitis. No nausea, tolerated the G-tube feeding well. Has a decubiti ulcer. No leg swelling. PHYSICAL EXAMINATION: GENERAL: In no acute distress. VITAL SIGNS: Temperature is 98, heart rate is 105, respiratory rate is 18, blood pressure 108/68, pulse ox 100% nasal cannula. HEENT: Moist mucous membrane. Crowded airway. NECK: Supple. No JVD. LUNGS: Have fair airflow with rhonchi. HEART: S1 and S2. ABDOMEN: Soft, nontender. No organomegaly. G tube area looks okay. EXTREMITIES: There is no edema. Has some contracture. Has sacral decubiti. NEUROLOGIC: Awake, alert. MEDICATIONS: The patient is on Brovana inhaled twice a day, diltiazem 30 mg four times a day, Keppra 500 mg every 12 hours, IV fluids with lactated Ringer 75 mL per hour, Lasix 20 mg daily, mag oxide 400 mg twice a day, cefepime 1 g IV every 8 hours, morphine 2 mg IV every 50 minutes p.r.n., Pepcid 40 mg at bedtime, Pulmicort inhaled twice a day, Santyl at affected area, and Zofran p.r.n. basis. LABORATORY DATA: Shows hemoglobin 10.5, hematocrit 33.8, WBC 10.8, platelet is 437. INR 1.31, PTT 31. Sodium 139, potassium 3.5, chloride 104, bicarbonate 26, BUN 19, creatinine 0.7, glucose is 52, calcium 9.1, magnesium 2. Microbiology, blood culture has been negative. IMPRESSION AND PLAN: Chronic obstructive lung disease, atrial fibrillation, history of cerebrovascular accident, history of head and neck cancer requiring resection, decubiti ulcer, rectal bleed, gastroesophageal reflux disease, gastritis, constipation, status post wound debridement. Pulmonary point of view, doing okay. Continue bronchodilator. Keep head at 45 degrees. Antibiotics. Gastric prophylaxis, DVT prophylaxis. Will discontinue IV fluids. Pressure ulcer precaution. Follow up labs in the morning. Thank you and we will follow with you. Fatoumata Cruz MD [facility] # [id number]
--- NOTE | 2018-03-28 23:14 | PN ---
DATE: 03/28/2018 SUBJECTIVE: The patient was seen and examined on the bedside on 03/28/2018, looking comfortable, was ready to go to OR for wound debridement. No fever. No chills. No nausea or vomiting. No diarrhea. The patient is n.p.o. PHYSICAL EXAMINATION: VITAL SIGNS: Temperature 97.5, pulse 70, respiratory rate 18, blood pressure 140/60, pulse oximetry 98. HEENT: Head normocephalic, atraumatic. Eyes; PERRLA. Extraocular muscles intact. Conjunctivae clear. Nose patent. Mucous membrane moist. NECK: Supple. No carotid bruit. No JVD or thyromegaly. CHEST: Bilaterally symmetrical. HEART: S1 and S2 positive. LUNGS: Clear to auscultation. ABDOMEN: Soft. Bowel sounds positive. No organomegaly. EXTREMITIES: No edema. No cyanosis. NEUROLOGICAL: The patient is awake and alert. Moving all 4 extremities. No focal deficits. MEDICATIONS: Brovana, Pulmicort, Cardizem, Pepcid, Lasix, Maxipime, lactated Ringer's, Keppra, magnesium oxide, Lopressor. LABORATORY DATA: White blood cells 10.8, hemoglobin 10.5, hematocrit 33.8, platelets 437. Sodium 139, potassium 3.5, BUN 19, creatinine 0.7, glucose 89. ASSESSMENT AND PLAN: Mr. Geo Ewing, 72-year-old male with anemia, hypokalemia, has history of constipation, fecal impaction, poor nutrition, sacral decubitus ulcer, getting pain management, history of gastrointestinal bleeding, right now no active gastrointestinal bleeding, percutaneous endoscopic gastrostomy is intact. CT imaging reviewed with clear constipation. The patient has multiple large bowel movements after have GoLYTELY. The patient has intermittent rectal bleeding from hemorrhoids versus pericolic ulcers. According to GI, they will discuss with the patient's daughter, Eladia. If possible, then they will do flexible sigmoidoscopy. If improvement, will not happen. After procedure, we will restart Eliquis. Infectious Disease is on the case. Continue present treatment. The patient has systemic inflammatory response syndrome. Today is day 4 of Maxipime. We will follow up. Mariana Fernandez MD [facility] # [id number]
[2018-03-29] MEDS: Cefepime 1gm in NS 100ml 1 GM/100 ML BAG IVPB SCH ×3 (06:29→22:39)
[2018-03-29 07:11] LABS: HEMOGLOBIN 9.2 g/dL (14.0-18.0); MEAN CELL VOLUME 78.7 fl (80.0-105.0); MEAN CORPUSCULAR HEMOGLOBIN 25.1 pg (25.0-35.0); MEAN CORPUSCULAR HGB CONC 31.9 g/dl (31.0-37.0); MEAN PLATELET VOLUME 8.5 fl (7.0-11.0); RBC 3.66 10^6/uL (3.5-6.1); RED CELL DISTRIBUTION WIDTH 15.6 % (11.5-14.5); WHITE BLOOD COUNT 10.3 10^3/uL (4.5-11.0)
[2018-03-29] MEDS: Arformoterol 15 mcg/2 ml Inh Sol IH SCH ×2 (07:15→21:26)
[2018-03-29] MEDS: Budesonide 0.5 mg/2 ml Inhal Susp UD IH SCH ×2 (07:15→21:26)
[2018-03-29 07:27] LABS: ALB/GLOB RATIO 0.7 (1.1-1.8); ALBUMIN 2.6 g/dL (3.0-4.8); ALT/SGPT 47 U/L (7-56); AST/SGOT 73 U/L (17-59); BLOOD UREA NITROGEN 27 mg/dL (7-21); CALCIUM 8.5 mg/dL (8.4-10.5); GFR NON-AFRICAN AMERICAN > 60
--- NOTE | 2018-03-29 08:41 | CP.PCM.PN ---
Subjective - Date & Time of Evaluation Date of Evaluation: 03/29/18 Time of Evaluation: 08:37 - Subjective Subjective: General Surgery Progress Note for Dr. Carson 72M, seen and evaluated at bedside this morning. No acute events overnight. Patient resting comfortably in bed with no complaints. Patient continues NPO. Denies pain or discomfort. Bandages placed over wounds. Denies f/c, n/v/d, CP, SOB, or urinary symptoms. Objective - Vital Signs/Intake and Output Vital Signs (last 24 hours): Temp Pulse Resp BP Pulse Ox 98.3 F 107 H 18 116/77 98 03/28/18 21:43 03/28/18 21:54 03/28/18 21:43 03/28/18 21:54 03/28/18 21:43 Intake and Output: 03/29/18 03/29/18 06:59 18:59 Intake Total 1300 Output Total 75 Balance 1225 - Medications Medications: Current Medications Arformoterol Tartrate (Brovana) 15 mcg IH [id number] [facility] Last Admin: 03/29/18 07:15 Dose: 15 mcg Budesonide (Pulmicort Respules) 0.5 mg IH [id number] [facility] Last Admin: 03/29/18 07:15 Dose: 0.5 mg Collagenase (Santyl) 0 gm TOP DAILY [facility] Last Admin: 03/28/18 10:53 Dose: 1 applic Diltiazem HCl (Cardizem) 30 mg PEG QID [facility] Last Admin: 03/28/18 21:54 Dose: 30 mg Famotidine (Pepcid) 40 mg PEG HS [facility] Last Admin: 03/28/18 21:54 Dose: 40 mg Furosemide (Lasix) 20 mg PEG DAILY [facility] Last Admin: 03/28/18 10:51 Dose: 20 mg Cefepime HCl (Maxipime 1gm) 1 gm in 100 mls @ 100 mls/hr IVPB Q8 [facility]; Protocol Stop: 04/03/18 11:49 Last Admin: 03/29/18 06:29 Dose: 100 mls/hr Potassium Chloride (Potassium Chloride 20 Meq/100 Ml) 20 meq in 100 mls @ 50 mls/hr IVPB Q2H [facility] Stop: 03/29/18 12:44 Levetiracetam (Keppra) 500 mg PO Q12 [facility] Last Admin: 03/28/18 21:57 Dose: 500 mg Magnesium Oxide (Mag-Ox) 400 mg PEG BID [facility] Last Admin: 03/28/18 18:03 Dose: 400 mg Metoprolol Tartrate (Lopressor) 100 mg PEG BID [facility] Last Admin: 03/28/18 18:03 Dose: Not Given Morphine Sulfate (Morphine) 2 mg IVP Q15M PRN PRN Reason: Pain, moderate (4-7) Ondansetron HCl (Zofran Inj) 4 mg IVP ONCE PRN PRN Reason: Nausea/Vomiting Silver Sulfadiazine (Silvadene 1% 25 Gm) 0 gm TP BID [facility] Last Admin: 03/28/18 18:04 Dose: Not Given - Labs Labs: 03/29/18 06:50 03/29/18 06:50 PT 15.1 SECONDS (9.4-12.5) H 03/28/18 07:00 INR 1.31 03/28/18 07:00 APTT 30.8 Seconds (25.1-36.5) 03/28/18 07:00 - Constitutional Appears: Well, Non-toxic, No Acute Distress - Head Exam Head Exam: ATRAUMATIC, NORMAL INSPECTION, NORMOCEPHALIC - ENT Exam ENT Exam: Mucous Membranes Dry - Cardiovascular Exam Cardiovascular Exam: REGULAR RHYTHM - GI/Abdominal Exam GI & Abdominal Exam: Soft, Normal Bowel Sounds. absent: Tenderness - Neurological Exam Neurological Exam: Alert, Awake. absent: Oriented x3 - Skin Additional comments: Left hip ulcer and sacral ulcer improving, no necrosis, no drainage Assessment and Plan - Assessment and Plan (Free Text) Assessment: 72M s/p left hip decubitus ulcer debridement POD1 Plan: F/u wound cultures Blood cultures negative Monitor AM labs Replete electrolytes as needed Continue dressing changes and wound care Further recommendations per Dr. Alli Ramirez PGY1
--- NOTE | 2018-03-29 10:59 | CP.PCM.PN ---
<Vicente Read - Last Filed: 03/29/18 10:57> Subjective - Date & Time of Evaluation Date of Evaluation: 03/29/18 Time of Evaluation: 10:57 - Subjective Subjective: PGY-2 GI progress note for Dr Malik Patient denied any discomfort or pain. Complained of urinary incontinence. PEG tube intact and capped. Patient maintained NPO. Had normal bowel movement yesterday. Denied any further rectal bleeding. Right-sided hemiparesis. Objective - Vital Signs/Intake and Output Vital Signs (last 24 hours): Temp Pulse Resp BP Pulse Ox 98.1 F 99 H 18 117/68 95 03/29/18 07:00 03/29/18 07:00 03/29/18 07:00 03/29/18 07:00 03/29/18 07:00 Intake and Output: 03/29/18 03/29/18 06:59 18:59 Intake Total 1300 Output Total 75 Balance 1225 - Medications Medications: Current Medications Arformoterol Tartrate (Brovana) 15 mcg IH [id number] [facility] Last Admin: 03/29/18 07:15 Dose: 15 mcg Budesonide (Pulmicort Respules) 0.5 mg IH [id number] [facility] Last Admin: 03/29/18 07:15 Dose: 0.5 mg Collagenase (Santyl) 0 gm TOP DAILY [facility] Last Admin: 03/28/18 10:53 Dose: 1 applic Diltiazem HCl (Cardizem) 30 mg PEG QID [facility] Last Admin: 03/28/18 21:54 Dose: 30 mg Famotidine (Pepcid) 40 mg PEG HS [facility] Last Admin: 03/28/18 21:54 Dose: 40 mg Furosemide (Lasix) 20 mg PEG DAILY [facility] Last Admin: 03/28/18 10:51 Dose: 20 mg Cefepime HCl (Maxipime 1gm) 1 gm in 100 mls @ 100 mls/hr IVPB Q8 [facility]; Protocol Stop: 04/03/18 11:49 Last Admin: 03/29/18 06:29 Dose: 100 mls/hr Potassium Chloride (Potassium Chloride 20 Meq/100 Ml) 20 meq in 100 mls @ 50 mls/hr IVPB Q2H [facility] Stop: 03/29/18 12:44 Levetiracetam (Keppra) 500 mg PO Q12 [facility] Last Admin: 03/28/18 21:57 Dose: 500 mg Magnesium Oxide (Mag-Ox) 400 mg PEG BID [facility] Last Admin: 03/28/18 18:03 Dose: 400 mg Metoprolol Tartrate (Lopressor) 100 mg PEG BID [facility] Last Admin: 03/28/18 18:03 Dose: Not Given Morphine Sulfate (Morphine) 2 mg IVP Q15M PRN PRN Reason: Pain, moderate (4-7) Ondansetron HCl (Zofran Inj) 4 mg IVP ONCE PRN PRN Reason: Nausea/Vomiting Silver Sulfadiazine (Silvadene 1% 25 Gm) 0 gm TP BID [facility] Last Admin: 03/28/18 18:04 Dose: Not Given - Labs Labs: 03/29/18 06:50 03/29/18 06:50 PT 15.1 SECONDS (9.4-12.5) H 03/28/18 07:00 INR 1.31 03/28/18 07:00 APTT 30.8 Seconds (25.1-36.5) 03/28/18 07:00 - Additional Findings Additional findings: - Constitutional Appears: Confused, Cachectic, Chronically Ill - Head Exam Head Exam: ATRAUMATIC, NORMAL INSPECTION, NORMOCEPHALIC - Eye Exam Eye Exam: EOMI, Normal appearance, PERRL - ENT Exam ENT Exam: Mucous Membranes Dry - Respiratory Exam Respiratory Exam: NORMAL BREATHING PATTERN - Cardiovascular Exam Cardiovascular Exam: RRR - GI/Abdominal Exam GI & Abdominal Exam: Normal Bowel Sounds, Soft. absent: Distended, Tenderness Additional comments: PEG, with no blood on aspiration, gastric fluid - Rectal Exam Additional comments: performed 03/25 by GI fellow - brown stool - Neurological Exam Neurological exam: Alert - Psychiatric Exam Psychiatric exam: Agitated - Skin Skin Exam: Dry, Normal Color Assessment and Plan - Assessment and Plan (Free Text) Plan: 1. Constipation, fecal impaction 2. Poor nutrition 3. Sacral decub ulcers Plan: -Continue supportive care with pain control -No active GI bleeding, PEG aspirated with gastric fluid, +brown stool -H/H stable -CT imaging reviewed with severe constipation -patient had multiple large bowel movements after 1/2 Golytely -May have intermittent rectal bleeding from hemorrhoids vs sterocolic ulcers -Diet as tolerated via peg - initial rate 15ml, goal rate 45ml -Will need to discuss with family about possible flex sig if no improvement -From GI perspective patient is okay to be restarted on eliquis if no drop in Hgb or melena or BRBPR -S/p debridement with general surgery 03/28 Seen and discussed with Dr Malik. <Charley Malik V - Last Filed: 03/30/18 00:03> Objective - Vital Signs/Intake and Output Vital Signs (last 24 hours): Temp Pulse Resp BP Pulse Ox 98.1 F 111 H 18 100/60 100 03/29/18 22:20 03/29/18 22:39 03/29/18 22:20 03/29/18 22:39 03/29/18 22:20 Intake and Output: 03/29/18 03/30/18 18:59 06:59 Intake Total 0 Output Total 800 750 Balance -800 -750 - Medications Medications: Current Medications Apixaban (Eliquis) 5 mg PEG BID [facility]; Protocol Last Admin: 03/29/18 18:44 Dose: 5 mg Arformoterol Tartrate (Brovana) 15 mcg IH [id number] [facility] Last Admin: 03/29/18 21:26 Dose: 15 mcg Budesonide (Pulmicort Respules) 0.5 mg IH [id number] [facility] Last Admin: 03/29/18 21:26 Dose: 0.5 mg Collagenase (Santyl) 0 gm TOP DAILY [facility] Last Admin: 03/28/18 10:53 Dose: 1 applic Diltiazem HCl (Cardizem) 30 mg PEG QID [facility] Last Admin: 03/29/18 22:39 Dose: 30 mg Famotidine (Pepcid) 40 mg PEG HS [facility] Last Admin: 03/29/18 22:39 Dose: 40 mg Furosemide (Lasix) 20 mg PEG DAILY [facility] Last Admin: 03/29/18 11:12 Dose: 20 mg Cefepime HCl (Maxipime 1gm) 1 gm in 100 mls @ 100 mls/hr IVPB Q8 [facility]; Protocol Stop: 04/03/18 11:49 Last Admin: 03/29/18 22:39 Dose: 100 mls/hr Levetiracetam (Keppra) 500 mg PO Q12H [facility] Last Admin: 03/29/18 22:42 Dose: 500 mg Magnesium Oxide (Mag-Ox) 400 mg PEG BID [facility] Last Admin: 03/29/18 18:45 Dose: 400 mg Metoprolol Tartrate (Lopressor) 100 mg PEG BID [facility] Last Admin: 03/29/18 18:45 Dose: 100 mg Morphine Sulfate (Morphine) 2 mg IVP Q15M PRN PRN Reason: Pain, moderate (4-7) Ondansetron HCl (Zofran Inj) 4 mg IVP ONCE PRN PRN Reason: Nausea/Vomiting Silver Sulfadiazine (Silvadene 1% 25 Gm) 0 gm TP BID [facility] Last Admin: 03/28/18 18:04 Dose: Not Given - Labs Labs: 03/29/18 06:50 03/29/18 06:50 PT 15.1 SECONDS (9.4-12.5) H 03/28/18 07:00 INR 1.31 03/28/18 07:00 APTT 30.8 Seconds (25.1-36.5) 03/28/18 07:00 Attending/Attestation - Attestation I have personally seen and examined this patient.: Yes I have fully participated in the care of the patient.: Yes I have reviewed all pertinent clinical information, including history, physical exam and plan: Yes
[2018-03-29] MEDS: Magnesium Oxide 400 mg Tab UD PEG SCH ×2 (11:12→18:45)
--- NOTE | 2018-03-29 15:13 | PN ---
DATE: 03/29/2018 SUBJECTIVE: The patient is in bed, in no acute distress, nontoxic. PHYSICAL EXAMINATION: VITAL SIGNS: On exam, temperature is 98, blood pressure is 117/60, respiratory rate of 18. HEENT: Examination of HEENT is unremarkable. NECK: Supple. LUNGS: Have decreased breath sounds. HEART: Normal S1, S2. ABDOMEN: Soft, nontender. LABORATORY DATA: Laboratory examination reveals a white count of 10,000, hemoglobin of 9, platelets of 363. Chemistries reveals a BUN of 27, creatinine of 0.9. Microbiology reveals a gram-positive cocci, gram-negative vic. The blood cultures are negative. Gram-positive cocci, gram-negative vic from the wound. Review of orders reveals the patient to be on cefepime. ASSESSMENT AND PLAN: A 72-year-old male, recently discharged, history of atrial fibrillation, hypertension, chronic obstructive lung disease, throat cancer, transient ischemic attack, dementia, cerebrovascular accident, cirrhosis, systemic inflammatory response syndrome with gastrointestinal bleeding. Day #5 of Maxipime. The patient is status post surgery yesterday by with a left hip decubitus ulcer debridement. We will check on the cultures and we will follow with you. Efra Craig MD
[2018-03-29] MEDS ORDERED: levETIRAcetam Solution 100 MG/ML BOTTLE PO SCH (22:00)
[2018-03-29] MEDS: levETIRAcetam 500 mg/5ml UD cups PO SCH (22:42)
--- NOTE | 2018-03-30 00:15 | PN ---
DATE: 03/29/2018 SUBJECTIVE: The patient was seen and examined on the bedside on 03/29/2018. Looking comfortable. No nausea, vomiting, diarrhea. No hematuria or hematochezia. No swelling of the leg. No chest pain. No palpitation. No headache. No dizziness. PHYSICAL EXAMINATION: VITAL SIGNS: Temperature 98.3, pulse 107, respiratory rate 18, blood pressure 133/77. HEENT: Head normocephalic, atraumatic. Eyes PERRLA. Extraocular muscles intact. Conjunctivae clear. Nose patent. Mucous membrane moist. NECK: Supple. No carotid bruit. No JVD or thyromegaly. CHEST: Bilaterally symmetrical. HEART: S1 and S2 positive. LUNGS: Clear to auscultation. ABDOMEN: Soft. Bowel sounds positive. No organomegaly. EXTREMITIES: No edema. No cyanosis. NEUROLOGICAL: The patient is awake and alert. Moving all 4 extremities. No focal deficits. MEDICATIONS: Brovana, Pulmicort, Santyl, Cardizem, Pepcid, Lasix, potassium, Keppra, Lopressor, morphine, Zofran, silver sulfadiazine LABORATORY DATA: White blood cells 10.3, hemoglobin 9.2, hematocrit 28.8, platelets 363. Sodium 137, potassium 3, BUN 27, creatinine 0.9, glucose 122. ASSESSMENT AND PLAN: Mr. Geo Ewing has anemia; hypokalemia; hyperglycemia; has decubitus ulcer debridement, postoperative day 1. Seen by Infectious Disease, Dr. Craig. The patient has a history of atrial fibrillation, on Eliquis; hypertension; chronic obstructive lung disease; throat cancer; transient ischemic attack; dysphagia; percutaneous endoscopic gastrostomy tube; dementia; cerebrovascular accident; cirrhosis of the liver; systemic inflammatory response syndrome; gastrointestinal bleeding. Today is day 5 of Maxipime. The patient is status post surgery, stable. Repeat labs. Waiting for the cultures. We will follow up. Mariana Fernandez MD
--- NOTE | 2018-03-30 03:11 | PN ---
DATE: 03/29/2018 SUBJECTIVE: He is lying in the bed, head at 45 degrees. Night was unremarkable. No headache. No rhinitis. No chest pain. No nausea. No vomiting, diarrhea, leg pain, leg swelling. OBJECTIVE: GENERAL: In no acute distress. VITAL SIGNS: Temperature is 98, heart rate is 99, respiratory rate is 18, blood pressure 100/60, pulse ox 100% on nasal cannula. HEENT: Moist mucous membrane. No ulcer or thrush noted. NECK: Supple. No JVD. LUNGS: Have a fair airflow with few rhonchi. HEART: S1 and S2. ABDOMEN: Soft, nontender, no organomegaly. G tube area looks okay. Has decubitus ulcer. EXTREMITIES: Have no edema. NEUROLOGIC: Awake, alert. Follow simple command. MEDICATIONS: Brovana inhaled twice a day; Cardizem 30 mg 4 times daily; Eliquis 5 mg twice a day; Keppra 500 mg twice a day; Lasix 20 mEq daily; metoprolol tartarate 100 mg twice a day; magnesium oxide 400 mg twice a day; cefepime 1 gm IV every eight hours; morphine 2 mg IV every 50 minutes p.r.n.; Pepcid 40 mg on G-tube at bedtime, Pulmicort inhaled twice a day; Santyl p.r.n. basis; Zofran p.r.n. basis. Hemoglobin 9.2, hematocrit 28.8, WBC 10.3, platelets 363,000. Sodium 137, potassium 3, chloride 107, bicarbonate 29, BUN 27, creatinine 0.9, glucose 122, calcium 8.5, phosphorus is 2.6, magnesium 1.9, AST 73, ALT 47, alkaline phosphatase is 115, albumin is 2.6. Microbiology, blood culture negative. Wound has gram negative and gram positive organism. IMPRESSION AND PLAN: Chronic obstructive lung disease, atrial fibrillation, cerebrovascular accident, history of head and neck cancer requiring resection of decubitus ulcer, rectal bleed, gastroesophageal reflux disease, gastritis, constipation, status post wound debridement. Pulmonary point of view, doing okay. Continue bronchodilator. Keep head at 45 degrees, aspiration precaution. Replace potassium. Gastric and deep vein thrombosis prophylaxis. Thank you, and we will follow with you. Fatoumata Cruz MD [facility] # [id number]
[2018-03-30] MEDS: Cefepime 1gm in NS 100ml 1 GM/100 ML BAG IVPB SCH ×2 (05:50→13:23)
[2018-03-30 07:42] LABS: HEMOGLOBIN 9.2 g/dL (14.0-18.0); MEAN CELL VOLUME 79.1 fl (80.0-105.0); MEAN CORPUSCULAR HEMOGLOBIN 25.3 pg (25.0-35.0); MEAN CORPUSCULAR HGB CONC 32.1 g/dl (31.0-37.0); MEAN PLATELET VOLUME 8.5 fl (7.0-11.0); RBC 3.63 10^6/uL (3.5-6.1); RED CELL DISTRIBUTION WIDTH 15.6 % (11.5-14.5); WHITE BLOOD COUNT 9.2 10^3/uL (4.5-11.0)
[2018-03-30] MEDS: Arformoterol 15 mcg/2 ml Inh Sol IH SCH ×2 (07:51→19:36)
[2018-03-30] MEDS: Budesonide 0.5 mg/2 ml Inhal Susp UD IH SCH ×2 (07:51→19:37)
[2018-03-30 08:01] LABS: BLOOD UREA NITROGEN 26 mg/dL (7-21); CALCIUM 8.4 mg/dL (8.4-10.5); GFR NON-AFRICAN AMERICAN > 60
[2018-03-30] MEDS: Magnesium Oxide 400 mg Tab UD PEG SCH (10:34)
[2018-03-30] MEDS: levETIRAcetam 500 mg/5ml UD cups PO SCH (10:35)
--- NOTE | 2018-03-30 11:29 | CP.PCM.PN ---
<Vicente Read - Last Filed: 03/30/18 11:29> Subjective - Date & Time of Evaluation Date of Evaluation: 03/30/18 Time of Evaluation: 11:26 - Subjective Subjective: PGY-2 GI progress note for Dr Malik NO acute events overnight. Appeared a little confused this morning. Patient denied any discomfort or pain. PEG tube intact and capped. Patient maintained NPO. Had normal bowel movement yesterday. Denied any further rectal bleeding. Right-sided hemiparesis. Objective - Vital Signs/Intake and Output Vital Signs (last 24 hours): Temp Pulse Resp BP Pulse Ox 97.7 F 100 H 18 135/76 96 03/30/18 08:13 03/30/18 08:13 03/30/18 08:13 03/30/18 10:33 03/30/18 08:13 Intake and Output: 03/30/18 03/30/18 06:59 18:59 Intake Total 0 Output Total 750 Balance -750 - Medications Medications: Current Medications Apixaban (Eliquis) 5 mg PEG BID [facility]; Protocol Last Admin: 03/30/18 10:34 Dose: 5 mg Arformoterol Tartrate (Brovana) 15 mcg IH [id number] [facility] Last Admin: 03/30/18 07:51 Dose: 15 mcg Budesonide (Pulmicort Respules) 0.5 mg IH [id number] [facility] Last Admin: 03/30/18 07:51 Dose: 0.5 mg Collagenase (Santyl) 0 gm TOP DAILY [facility] Last Admin: 03/28/18 10:53 Dose: 1 applic Diltiazem HCl (Cardizem) 30 mg PEG QID [facility] Last Admin: 03/30/18 10:34 Dose: 30 mg Famotidine (Pepcid) 40 mg PEG HS [facility] Last Admin: 03/29/18 22:39 Dose: 40 mg Furosemide (Lasix) 20 mg PEG DAILY [facility] Last Admin: 03/30/18 10:33 Dose: 20 mg Cefepime HCl (Maxipime 1gm) 1 gm in 100 mls @ 100 mls/hr IVPB Q8 [facility]; Protocol Stop: 04/03/18 11:49 Last Admin: 03/30/18 05:50 Dose: 100 mls/hr Levetiracetam (Keppra) 500 mg PO Q12H [facility] Last Admin: 03/30/18 10:35 Dose: 500 mg Magnesium Oxide (Mag-Ox) 400 mg PEG BID [facility] Last Admin: 03/30/18 10:34 Dose: 400 mg Metoprolol Tartrate (Lopressor) 100 mg PEG BID [facility] Last Admin: 03/30/18 10:32 Dose: 100 mg Morphine Sulfate (Morphine) 2 mg IVP Q15M PRN PRN Reason: Pain, moderate (4-7) Ondansetron HCl (Zofran Inj) 4 mg IVP ONCE PRN PRN Reason: Nausea/Vomiting Silver Sulfadiazine (Silvadene 1% 25 Gm) 0 gm TP BID [facility] Last Admin: 03/28/18 18:04 Dose: Not Given - Labs Labs: 03/30/18 07:15 03/30/18 07:15 PT 15.1 SECONDS (9.4-12.5) H 03/28/18 07:00 INR 1.31 03/28/18 07:00 APTT 30.8 Seconds (25.1-36.5) 03/28/18 07:00 - Additional Findings Additional findings: - Constitutional Appears: Confused, Cachectic, Chronically Ill - Head Exam Head Exam: ATRAUMATIC, NORMAL INSPECTION, NORMOCEPHALIC - Eye Exam Eye Exam: EOMI, Normal appearance, PERRL - ENT Exam ENT Exam: Mucous Membranes Dry - Respiratory Exam Respiratory Exam: NORMAL BREATHING PATTERN - Cardiovascular Exam Cardiovascular Exam: RRR - GI/Abdominal Exam GI & Abdominal Exam: Normal Bowel Sounds, Soft. absent: Distended, Tenderness Additional comments: PEG, with no blood on aspiration, gastric fluid - Rectal Exam Additional comments: performed 03/25 by GI fellow - brown stool - Neurological Exam Neurological exam: Alert - Psychiatric Exam Psychiatric exam: Agitated - Skin Skin Exam: Dry, Normal Color Assessment and Plan - Assessment and Plan (Free Text) Plan: 1. Constipation, fecal impaction 2. Poor nutrition 3. Sacral decub ulcers Plan: -Continue supportive care with pain control -No active GI bleeding, PEG aspirated with gastric fluid, +brown stool -H/H stable -CT imaging reviewed with severe constipation -patient had multiple large bowel movements after 1/2 Golytely -May have intermittent rectal bleeding from hemorrhoids vs sterocolic ulcers -Diet as tolerated via peg - initial rate 15ml, goal rate 45ml -Will need to discuss with family about possible flex sig if no improvement -From GI perspective patient is okay to be restarted on eliquis if no drop in Hgb or melena or BRBPR -S/p debridement with general surgery 03/28 -wound cx of sacral decub grew enterococcus faecalis and gram negative rods, blood cx negative -on cefepime 1g ivp q8h per ID Seen and discussed with Dr Malik. <Charley Malik V - Last Filed: 03/30/18 22:42> Objective - Vital Signs/Intake and Output Vital Signs (last 24 hours): Temp Pulse Resp BP Pulse Ox 97.9 F 109 H 16 115/69 98 03/30/18 14:00 03/30/18 14:00 03/30/18 14:00 03/30/18 14:00 03/30/18 14:00 - Labs Labs: 03/30/18 07:15 03/30/18 07:15 PT 15.1 SECONDS (9.4-12.5) H 03/28/18 07:00 INR 1.31 03/28/18 07:00 APTT 30.8 Seconds (25.1-36.5) 03/28/18 07:00 Attending/Attestation - Attestation I have personally seen and examined this patient.: Yes I have fully participated in the care of the patient.: Yes I have reviewed all pertinent clinical information, including history, physical exam and plan: Yes Notes (Text): Notes (Text): This is an addendum to GI followup report dictated by the Greens Keeper. The patient was seen and evaluated earlier. Medical records, lab studies, imagings were reviewed. Last 24 hours events reviewed. Agreed with the above treatment plan as outlined in Greens Keeper 's notes with the addition of the following 03/30/18 22:41
--- NOTE | 2018-03-30 11:38 | CP.PCM.PCO ---
Physician Communication Note - Physician Communication Note Physician Communication Note: Wound clean:Enterococcus
[2018-03-30] MEDS ORDERED: Amoxicillin-Clav 875-125 mg Tab PO SCH (13:30)
--- NOTE | 2018-03-30 15:20 | PN ---
DATE: 03/30/2018 SUBJECTIVE: The patient is in bed, in no acute distress, nontoxic. PHYSICAL EXAMINATION: VITAL SIGNS: On exam, temperature is 97, blood pressure is 120/70, respiratory rate of 18. HEENT: Examination of HEENT is unremarkable. NECK: Supple. LUNGS: Have decreased breath sounds. HEART: Normal S1, S2. ABDOMEN: Soft. LABORATORY DATA: Laboratory examination reveals the patient's white count is 9.2 and the chemistries are noted. BUN of 26, creatinine of 0.7. Microbiology reveals Enterococcus faecalis and a gram-negative vic in the wound culture. Dr. Garcia Carson' note is reviewed. Wound is clean with Enterococcus and the Enterococcus is ampicillin sensitive. ASSESSMENT AND PLAN: A 72-year-old who was recently discharged, history of atrial fibrillation, hypertension, chronic obstructive lung disease, throat cancer, transient ischemic attacks, dementia, cerebrovascular accident, cirrhosis with sepsis with gastrointestinal bleed. We can switch to p.o. Augmentin 875 p.o. b.i.d. x5 days. Efra Craig MD
[2018-03-30 18:11] VITALS: BP 115/69; PULSE 109; RESP 16; TEMP 97.9; O2SAT 98
--- NOTE | 2018-03-30 22:48 | PN ---
DATE: 03/30/2018 PULMONARY PROGRESS NOTE REFERRING PHYSICIAN: Mariana Fernandez MD SUBJECTIVE: He is lying in the bed, head at 45 degrees. Night was unremarkable. Feels okay. Tolerating the G-tube feeding well, status post debridement of the decubiti ulcer. No leg pain or leg swelling. OBJECTIVE: GENERAL: No acute distress. VITAL SIGNS: Temperature is 98, heart rate is 109, respiratory rate is 18, blood pressure is 115/69, and pulse ox 98% room air. HEENT: Moist mucous membranes. Crowded airway. NECK: Supple. No JVD. LUNGS: Has a fair airflow with rhonchi. HEART: S1 and S2. ABDOMEN: Soft, nontender, and nondistended. G-tube area looks okay. Has a decubiti ulcer. EXTREMITIES: There is no edema. NEUROLOGIC: Awake, alert and follows simple command. MEDICATIONS: Reviewed and noted. No new change in medications reported since yesterday. LABORATORY DATA: Shows hemoglobin 9.2, hematocrit 28.7, WBC 9.2, and platelet is 375. Sodium 133, potassium 3.7, chloride 99, bicarbonate 29, BUN 26, creatinine 0.7, glucose 110, and calcium is 8.4. Wound culture has Enterococcus faecalis and Gram-negative rods. IMPRESSION AND PLAN: Chronic obstructive lung disease; atrial fibrillation; cerebrovascular accident; history of head and neck cancer, requiring resection; decubiti ulcer; rectal bleed; gastroesophageal reflux disease; gastritis; constipation; and status post wound debridement. I spoke to nursing staff and requested to discontinue IV fluids. Continue gastrostomy tube feeding. Antibiotics as per Infectious Diseases, inhaled bronchodilator, pressure ulcer precaution, and fall precaution. Thank you and we will follow with you. Fatoumata Cruz MD
--- NOTE | 2018-03-31 02:06 | DS ---
03/30/80 The patient was seen and examined at bedside, 03/30/2018. CHIEF COMPLAINT: Blood in the stool. HISTORY OF PRESENT ILLNESS: Mr. Geo Ewing is a 72-year-old male with past medical history of atrial fibrillation, hypertension, COPD, throat cancer, cirrhosis of the liver and other medical problem who came for blood in the stool and was admitted. We called GI consult. The patient's wound looks like needed debridement. Dr. Garcia Carson did wound debridement. ID called Dr. Efra Craig, gave IV antibiotics, and seen by maori physiotherapist. Now culture was negative and sensitivity came back. Dr. Craig made IV antibiotics to p.o., discharged home on 03/30/2018 with p.o. antibiotics, meds at the bedside and nurse practitioner called Dr. Tyler Mc to follow up patient as outpatient and normally Dr. Tyler Mc is doing house call. Family is aware of that also. PAST MEDICAL HISTORY: COPD, throat cancer, and multiple skin discoloration. FAMILY HISTORY: Father and mother, noncontributory. HABITS: No smoking. No drugs. No ethanol. ALLERGIES: THE PATIENT IS NOT ALLERGIC WITH ANY MEDICATIONS. HOME MEDICATIONS: Reviewed by me. REVIEW OF SYSTEMS: The patient was seen and examined at the bedside early in the morning and looking comfortable. No nausea, vomiting or diarrhea. No hematuria. No hematochezia. No swelling of the legs. No chest pain. No palpitation. No headache. No dizziness. No fever. No chills. No acute events happened overnight. Appeared a little better. PEG tube is working very well. PHYSICAL EXAMINATION: VITAL SIGNS: Temperature 97.7, pulse 100, respiratory rate 18, blood pressure 130/76, and pulse oximetry 96. HEENT: Head; normocephalic and atraumatic. Eyes; PERRLA. Extraocular muscles intact. Conjunctivae clear. Nose patent. Mucous membranes moist. NECK: Supple. No carotid bruit. No JVD or thyromegaly. CHEST: Bilaterally symmetrical. HEART: S1 and S2 positive. LUNGS: Clear to auscultation. ABDOMEN: Soft. Bowel sounds present. No organomegaly. EXTREMITIES: No edema. No cyanosis. NEUROLOGIC: The patient is awake and alert. Moving all 4 extremities. No focal deficits. MEDICATIONS: Eliquis, Brovana, Pulmicort, and Santyl. LABORATORY DATA: White blood cells 9.2, hemoglobin 9.2, hematocrit 28.7, and platelets 375. Sodium 139, potassium 3.7, BUN 26, creatinine 0.7, and glucose 110. ASSESSMENT AND PLAN: Mr. Geo Ewing with anemia, history of constipation, fecal impaction, poor nutrition, and sacral decubitus ulcer. Wound debridement is done. Continue supportive care. No active gastrointestinal bleeding. Percutaneous endoscopic gastrostomy is working very well. Repeat labs. Discharged the patient home. He is to follow up with Dr. Tyler Mc as house call. We will follow up. Mariana Fernandez MD MTDD
--- NOTE | 2018-03-31 15:45 | OP ---
PROCEDURE DATE: 03/28/2018 He is admitted on 03/24/2018, operated on 03/28/2018. SURGEON: Garcia Carson MD STEEL WHEEL ENGRAVER: Genaro Carson DO, PGY 3. ORE GRADER: Dr. Adrien Ayoub. ANESTHESIA: MAC - bupivacaine 0.5-14 mL. PREOPERATIVE DIAGNOSES: 1. Left hip decubitus, 3 x 3 inches, stage III with necrosis down to the musculature. 2. Altered mental status. POSTOPERATIVE DIAGNOSES: 1. Left hip decubitus, 3 x 3 inches, stage III with necrosis down to the musculature. 2. Altered mental status. PROCEDURE: Wide and deep excision of a left 3 x 3 inches stage III ulcer on the left hip OPERATIVE INDICATION: The patient is a 72-year-old male who has had multiple decubiti following cerebrovascular accidents in an altered mental status with contracture formation and subsequent ulceration from pressure sore. The patient has been admitted before with similar event, had also had GI bleeding at that time and at present is now brought with the permission of the power of attorney general, daughter Eladia Villalta, telephone #[phone] for definitive debridement of the infected necrotic left hip ulcer. The other ulcers are managed with conservative measures at this point. OPERATIVE NOTE: The patient is brought to the operating room. He is identified by his wrist band, undergoes time-out procedure. He is placed on the table in a right lateral position with the left hip exposed. He is sedated and monitored by the anesthesiologist and the area of the left hip and surrounding structures are prepped with Betadine and the patient is aseptically draped. Infiltration to completely surround the area in a field block technique is employed with the bupivacaine and following this, the necrotic ulcer was elevated with cautery scalpel and dissected free from the skin and subcutaneous tissues and some musculature below which was found to be partly necrotic. Cultures were taken at this point aerobically and anaerobically. The area is now lavaged with saline. Hemostasis is reconfirmed and the specimen is submitted to Pathology in formalin. A dry dressing is placed over this. The patient is transported to the recovery room in a satisfactory condition. Sponge, instrument and suture count were verified as correct at the end of the procedure. Estimated blood loss during the procedure was less than 10 mL of blood. This dictation will be electronically signed without being read. The surgical brace maker was present throughout the procedure from beginning to end and was very essential in the dissection performed. Garcia Carson MD
--- NOTE | 2018-04-03 10:33 | PQF ---
PROVIDER RESPONSE TEXT: Hip necrotic excisional soft tissue debridement to the muscle. Debridement was carried out using a don vie /electrocautery REVIEWER QUERY TEXT: Debridement Type Debridement is documented in the Medical Record. Please specify the type and extent of debridement to include the method and instruments used. Depth of tissue removed: Such as: -- Skin -- Subcutaneous tissue -- Fascia -- Muscle -- Bone -- Other, please specify The patient's Clinical Indicators include: Your post-surgery note from 03/28 showed that a debridement of left hip decubitus was done. Please specify if this was an excisional debridement, instrument used, specifics as listed below. Please note that Operative dictation was not available at time of query. Query created by: Cookie Deshpande on 03/29/2018 1:18 PM Electronically signed by: Genaro Cota 04/03/2018 10:30 AM
== END 2018-03-30 20:18 | disposition home or self-care (01) | DRG 981 ==
LOC: ED 13:11 → ERH 18:14 → 5RSO 22:16
PROVIDERS: ADMIT Internal Medicine; ATTEND Internal Medicine
PROC: 0KBG0ZZ Excision of Left Trunk Muscle, Open Approach (ICD-10-PCS; principal; 2018-03-28 10:30)
DX: K92.2 Gastrointestinal hemorrhage, unspecified (principal); L89.153 Pressure ulcer of sacral region, stage 3; I69.354 Hemiplegia and hemiparesis following cerebral infarction affecting left non-dominant side; R65.10 Systemic inflammatory response syndrome (SIRS) of non-infectious origin without acute organ dysfunction; R64 Cachexia; Z68.1 Body mass index [BMI] 19.9 or less, adult; J44.9 Chronic obstructive pulmonary disease, unspecified; I11.0 Hypertensive heart disease with heart failure; K74.60 Unspecified cirrhosis of liver; L89.220 Pressure ulcer of left hip, unstageable; E86.0 Dehydration; L89.211 Pressure ulcer of right hip, stage 1; F03.90 Unspecified dementia, unspecified severity, without behavioral disturbance, psychotic disturbance, mood disturbance, and anxiety; K29.70 Gastritis, unspecified, without bleeding; D50.9 Iron deficiency anemia, unspecified; K56.41 Fecal impaction; K64.9 Unspecified hemorrhoids; E83.51 Hypocalcemia; E87.6 Hypokalemia; R62.7 Adult failure to thrive; I48.0 Paroxysmal atrial fibrillation; F32.9 Major depressive disorder, single episode, unspecified; I50.9 Heart failure, unspecified; K21.9 Gastro-esophageal reflux disease without esophagitis; R32 Unspecified urinary incontinence; B95.2 Enterococcus as the cause of diseases classified elsewhere; Z79.01 Long term (current) use of anticoagulants; Z93.1 Gastrostomy status; Z85.819 Personal history of malignant neoplasm of unspecified site of lip, oral cavity, and pharynx

== ENCOUNTER 2018-04-01 02:16 | Inpatient (IN) | payer MEDICARE, OTHER ==
[2018-04-01 02:17] VITALS: PULSE 75
--- NOTE | 2018-04-01 02:31 | ED PDOC ---
Arrival/HPI - General Time Seen by Provider: 04/01/18 02:18 Historian: Patient EM Caveat: Acuity of Condition - Critical Care Critical Care Minutes: 30 minutes - History of Present Illness Narrative History of Present Illness (Text): 04/01/18 02:30 72 year old male, whose past medical history includes A-fib on Eliquis, hypertension, COPD, throat cancer, cirrhosis, dementia, TIA, and CVA (01/2017) with right sided hemiparesis, presents to the emergency department complaining of, as per EMS, cough and decrease activity according to daughter. According to history obtained, patient was recently discharged 2 days ago after being treated for AMS and SIRS/Sepsis with Maxipime. HPI and ROS limited due to patient's acuity of condition. PMD: Dr. Fernandez Past Medical History - Provider Review Nursing Documentation Reviewed: Yes - Infectious Disease Hx of Infectious Diseases: None - Cardiac Hx Pacemaker: Yes (L) - Pulmonary Hx Chronic Obstructive Pulmonary Disease (COPD): Yes - Neurological HX Cerebrovascular Accident: Yes (L sided weakness) Hx Dementia: Yes - HEENT Hx HEENT Disorder: No - Renal Hx Renal Disorder: No - Endocrine/Metabolic Hx Endocrine Disorders: No - Hematological/Oncological Hx Blood Transfusions: No Hx Blood Transfusion Reaction: No - Integumentary Other/Comment: multiple ble skin discolorations - Musculoskeletal/Rheumatological Hx Musculoskeletal Disorders: Yes - Gastrointestinal Hx Gastrointestinal Disorders: Yes (L INGUINAL HERNIA) Hx Liver Failure: Yes (cirrhosis) - Genitourinary/Gynecological Hx Incontinence: Yes - Psychiatric Hx Emotional Abuse: No Hx Physical Abuse: No Hx Substance Use: No - Surgical History Hx Inguinal Hernia Repair: Yes (right) - Anesthesia Hx Anesthesia Reactions: No Hx Malignant Hyperthermia: No - Suicidal Assessment Feels Threatened In Home Enviroment: No Family/Social History - Physician Review Nursing Documentation Reviewed: Yes Family/Social History: No Known Family HX Smoking Status: Unknown If Ever Smoked Hx Alcohol Use: No Hx Substance Use: No Allergies/Home Meds Allergies/Adverse Reactions: Allergies No Known Allergies Allergy (Verified 04/01/18 02:35) Review of Systems - Physician Review All systems were reviewed & negative as marked: Yes - Review of Systems Systems not reviewed;Unavailable: Acuity of Condition Respiratory: Cough Physical Exam Vital Signs Reviewed: Yes Temperature: Afebrile Blood Pressure: Hypotensive Pulse: Tachycardic Respiratory Rate: Normal Appearance: Positive for: Well-Appearing, Non-Toxic, Comfortable, Other (elderly male) Pain Distress: None Mental Status: Positive for: other (Alert and poorly communicative) - Systems Exam Head: Present: Atraumatic, Normocephalic Pupils: Present: PERRL Extroacular Muscles: Present: EOMI Conjunctiva: Present: Normal Mouth: Present: Moist Mucous Membranes Neck: Present: Normal Range of Motion Respiratory/Chest: Present: Rales (at right base). No: Respiratory Distress, Accessory Muscle Use Cardiovascular: Present: Tachycardic. No: Murmurs Abdomen: No: Tenderness, Distention, Peritoneal Signs Back: Present: Normal Inspection Upper Extremity: Present: Other (Postive contractures ). No: Cyanosis, Edema Lower Extremity: Present: Other (Postive contractures ). No: Edema Neurological: Present: GCS=15, CN II-XII Intact Skin: Present: Warm, Dry, Normal Color. No: Rashes Psychiatric: Present: Alert (and poorly communicative), Normal Insight, Normal Concentration Medical Decision Making ED Course and Treatment: 04/01/18 02:31 Impression: 72 year old male presents for complaints of cough and decrease activity according to daughter. Plan: -- VBG -- Labs -- EKG -- Chest X-ray -- Blood Culture, Urine Culture -- Oxygen Therapy , BiPAP Procedure -- Urinalysis -- Reassess and disposition Prior Visits: Notes and results from previous visits were reviewed. Progress Notes: 04/01/18 03:06 CXR Impression: As read by me, right lower lobe infiltrates 04/01/18 04:25 EKG shows atrial flutter at 122 BPM with variable AV block, ST/T changes inferiorly Interpreted by me. 04/01/18 04:34 Code sepsis called. 04/01/18 04:[address] Fernandez who is aware and agrees with the plan. Accepts patient into her service. Requests consults for Dr. Cruz, Dr. Craig, and Dr. Carson - Critical Care Critical Care Minutes: 30 minutes - Lab Interpretations I have reviewed the lab results: Yes - EKG Interpretation Interpreted by ED Physician: Yes Type: 12 lead EKG - Scribe Statement The provider has reviewed the documentation as recorded by the Fernando Ya Provider Scribe Attestation: All medical record entries made by the Scribe were at my direction and person ally dictated by me. I have reviewed the chart and agree that the record accurately reflects my personal performance of the history, physical exam, medical decision making, and the department course for this patient. I have also personally directed, reviewed, and agree with the discharge instructions and disposition. Disposition/Present on Arrival - Present on Arrival Any Indicators Present on Arrival: No History of DVT/PE: No History of Uncontrolled Diabetes: No Urinary Catheter: No History Surgical Site Infection Following: None - Disposition Have Diagnosis and Disposition been Completed?: Yes Diagnosis: Pneumonia, Sepsis Disposition: HOSPITALIZED Disposition Time: 05:02 Patient Plan: Admission Condition: GUARDED
[2018-04-01] MEDS ORDERED: Sodium Chloride 0.9% 1,000 ML IV STA ×2 (03:09→05:04)
[2018-04-01] MEDS ORDERED: Cefepime (Maxipime) 1 g Inj IVPB ONE (03:23)
[2018-04-01 03:46] LABS: BASO # 0.02 K/mm3 (0.0-2.0); BASO % 0.1 % (0.0-3.0); GRAN # 12.91 (1.4-6.5); GRAN % 91.7 % (50.0-68.0); LYMPH # 0.6 (1.2-3.4); LYMPH % 4.2 % (22.0-35.0); MEAN CELL VOLUME 81.1 fl (80.0-105.0); MEAN CORPUSCULAR HEMOGLOBIN 25.9 pg (25.0-35.0); MEAN PLATELET VOLUME 8.9 fl (7.0-11.0); MONO # 0.6 (0.1-0.6); PLATELET COUNT 484 10^3/uL (120.0-450.0); RBC 4.24 10^6/uL (3.5-6.1); RED CELL DISTRIBUTION WIDTH 16.6 % (11.5-14.5); WHITE BLOOD COUNT 14.1 10^3/uL (4.5-11.0)
[2018-04-01] MEDS ORDERED: Cefepime IV 2 gm in NS 2 GM/100 ML BAG IVPB STA (03:48)
[2018-04-01 04:00] LABS: BLOOD UREA NITROGEN 29 mg/dL (7-21); GFR NON-AFRICAN AMERICAN > 60
[2018-04-01 04:01] LABS: ALB/GLOB RATIO 0.8 (1.1-1.8); ALBUMIN 3.7 g/dL (3.0-4.8); ALT/SGPT 46 U/L (7-56); AST/SGOT 69 U/L (17-59)
[2018-04-01 04:02] LABS: INR 1.28; PARTIAL THROMBOPLASTIN TIME 30.3 Seconds (25.1-36.5); PROTHROMBIN TIME 14.7 SECONDS (9.4-12.5)
[2018-04-01 04:23] LABS: B-TYPE NATRIURETIC PEPTIDE 7190 pg/mL (0-450); TROPONIN I 0.09 ng/mL
[2018-04-01 04:24] LABS: BAND 2 % (0-2); LYMPHOCYTE 7 % (22.0-35.0); MONOCYTE 3 % (1.0-6.0); NEUTROPHIL 88 % (50.0-70.0)
[2018-04-01 04:25] LABS: PLATELET ESTIMATE HIGH (NORMAL)
[2018-04-01 04:27] LABS: VENOUS BLOOD GAS BASE EXCESS -0.4 mmol/L (0.0-2.0); VENOUS BLOOD GAS PO2 45 mm/Hg (30-55); VENOUS BLOOD PH 7.34 (7.32-7.43)
[2018-04-01] MEDS ORDERED: Vancomycin 1gm in NS 250ml 1 GM/250 ML BAG IVPB STA (04:40)
[2018-04-01 05:29] LABS: ARTERIAL BLOOD GAS HCO3 25.7 mmol/L (21-28); ARTERIAL BLOOD GAS HEMOGLOBIN 9.3 g/dL (11.7-17.4); ARTERIAL BLOOD GAS O2 CAPACITY 13.6 mL/dl (16-24); ARTERIAL BLOOD GAS O2 CONTENT 13.6 ML/dl (15-23); ARTERIAL BLOOD GAS PCO2 30 mm/Hg (35-45); ARTERIAL BLOOD GAS PH 7.54 (7.35-7.45); ARTERIAL BLOOD GAS TCO2 26.6 mmol.L (22-28)
[2018-04-01 05:54] LABS: URINE BILIRUBIN NEGATIVE (NEGATIVE); URINE BLOOD MODERATE (NEGATIVE); URINE GLUCOSE (UA) NEGATIVE (NEGATIVE); URINE LEUKOCYTE ESTERASE NEGATIVE Leu/uL (NEGATIVE); URINE PROTEIN 100 mg/dL (<30 mg/dL); URINE UROBILINOGEN 0.2 E.U./dL (<1 E.U./dL)
[2018-04-01 06:03] LABS: URINE APPEARANCE SL CLOUDY (CLEAR); URINE COLOR YELLOW (YELLOW)
[2018-04-01] MEDS ORDERED: LACTOSE REDUCED FOOD PEG SCH (07:00)
[2018-04-01] MEDS: diltiaZEM IVPB 100mg in NS 100 ML IV PRN (07:11)
[2018-04-01 07:14] LABS: URINE BACTERIA MOD (NEG); URINE EPITHELIAL CELLS 0 - 2 /hpf (0-5)
[2018-04-01] MEDS: Arformoterol 15 mcg/2 ml Inh Sol IH SCH ×3 (07:47→20:17)
[2018-04-01] MEDS: Budesonide 0.5 mg/2 ml Inhal Susp UD IH SCH ×2 (07:50→20:17)
--- NOTE | 2018-04-01 07:52 | CP.PCM.PCO ---
Physician Communication Note - Physician Communication Note Physician Communication Note: ESBL E Coli: Rx Cfepime/Mupirocin L Hip
[2018-04-01 08:09] LABS: VENOUS BLOOD GAS BASE EXCESS 1.7 mmol/L (0.0-2.0); VENOUS BLOOD GAS PO2 31 mm/Hg (30-55); VENOUS BLOOD PH 7.41 (7.32-7.43)
--- NOTE | 2018-04-01 09:12 | RAD ---
Date of service: 04/01/2018 HISTORY: Sepsis Patient COMPARISON: 03/24/2018 FINDINGS: LUNGS: There is a patchy infiltrate in the right lower lobe PLEURA: No significant pleural effusion identified, no pneumothorax apparent. CARDIOVASCULAR: Minimal aortic calcification Normal cardiac size. Minimal vascular congestion. Single lead pacemaker OSSEOUS STRUCTURES: No significant abnormalities. VISUALIZED UPPER ABDOMEN: Normal. OTHER FINDINGS: None. IMPRESSION: Patchy infiltrate in the right lower lobe
[2018-04-01 09:39] VITALS: BMI 17.6
[2018-04-01] MEDS: POLYETHYLENE GLYCOL 3350 17 GM/Dose PACKET PEG SCH ×2 (09:47→18:10)
[2018-04-01] MEDS: Collagenase 250 Units/gm Ointment(30 gm) TOP SCH (09:48)
[2018-04-01] MEDS: Mupirocin 2% Ointment 15 GM TUBE TOP SCH ×2 (09:49→18:01)
[2018-04-01] MEDS: Magnesium Oxide 400 mg Tab UD PEG SCH ×2 (09:51→18:08)
[2018-04-01] MEDS ORDERED: Cefepime 1gm in NS 100ml 1 GM/100 ML BAG IVPB SCH (10:00)
--- NOTE | 2018-04-01 10:00 | CARD ---
APPROVED REPORT Date of service: 04/01/2018 EKG Measurement Heart [id number] <Conclusion> Atrial flutter with variable AV block Nonspecific ST changes Abnormal ECG
[2018-04-01] MEDS: Vancomycin 750mg 750 MG/250 ML BAG IVPB SCH ×2 (11:11→23:29)
[2018-04-01] MEDS: Meropenem IV 1 gm in NS 1 GM/50 ML BAG IVPB SCH ×2 (11:17→22:23)
[2018-04-01 12:07] LABS: VENOUS BLOOD GAS BASE EXCESS 5.7 mmol/L (0.0-2.0); VENOUS BLOOD GAS PO2 51 mm/Hg (30-55); VENOUS BLOOD PH 7.52 (7.32-7.43)
--- NOTE | 2018-04-01 12:32 | CP.PCM.PCO ---
Physician Communication Note - Physician Communication Note Physician Communication Note: Dx:RLL Pneumonia/Hip clean-Rx Ab/bactroban
--- NOTE | 2018-04-01 14:34 | PCM.SEPTIC ---
Sepsis Progress Note - Reassessment Type Date of Evaluation: 04/01/18 Time of Evaluation: 10:10 Reassessment Type: Non-invasive reassessment - Non Invasive Reassessment Were the most recent vital sign reviewed: Yes Vital Sign (Latest): Temp Pulse Resp BP Pulse Ox 97 F L 108 H 18 142/85 100 04/01/18 11:53 04/01/18 11:53 04/01/18 11:53 04/01/18 11:53 04/01/18 06:22 Cardiovascular: Yes: Chest Non Tender, Tachycardia, Irregularly Irregular. No: Gallop, JVD, Murmur, Friction Rub Respiratory: Yes: Crackles. No: Accessory Muscle Use, Rales, Stridor, Wheezing, Respiratory Distress, Plerual Rub Capillary Refill: Normal (Less than 2 sec) Skin: Normal Color, Warm, Dry
--- NOTE | 2018-04-01 17:14 | CP.PCM.CON ---
<Azeem Henao - Last Filed: 04/01/18 17:21> History of Present Illness - History of Present Illness History of Present Illness: 72M with past medical history of throat CA, A-fib on Eliquis, HTN , COPD,cirrhosis, dementia, TIA, and CVA with right sided hemiparesis, [place] [facility] with cough and lethargy. General surgery was consulted for wound care. Patient is s/p left hip ulcer debridement POD4. PMH: as stated above PSH: right inguinal herniorrhaphy, left hip ulcer debridement All: NKDA Review of Systems - Review of Systems Systems not reviewed;Unavailable: Dementia Past Patient History - Infectious Disease Hx of Infectious Diseases: None - Past Medical History & Family History Past Medical History?: Yes - Past Social History Smoking Status: n/a - CARDIAC Hx Cardiac Disorders: Yes Hx Hypercholesterolemia: Yes Hx Hypertension: Yes - PULMONARY Hx Respiratory Disorders: Yes - NEUROLOGICAL Hx Neurological Disorder: Yes Hx Transient Ischemic Attacks (TIA): Yes - HEENT Hx Difficulty Chewing: Yes - RENAL Hx Chronic Kidney Disease: No - ENDOCRINE/METABOLIC Hx Endocrine Disorders: No - HEMATOLOGICAL/ONCOLOGICAL Hx Blood Transfusions: No Hx Blood Transfusion Reaction: No - INTEGUMENTARY Other/Comment: multiple ble skin discolorations - MUSCULOSKELETAL/RHEUMATOLOGICAL Hx Musculoskeletal Disorders: Yes Hx Falls: Yes - GASTROINTESTINAL Hx Gastrointestinal Disorders: Yes (L INGUINAL HERNIA) Hx Liver Failure: Yes (cirrhosis) - GENITOURINARY/GYNECOLOGICAL Hx Incontinence: Yes - PSYCHIATRIC Hx Emotional Abuse: No Hx Physical Abuse: No Hx Substance Use: No - SURGICAL HISTORY Hx Orthopedic Surgery: Yes - ANESTHESIA Hx Anesthesia Reactions: No Hx Malignant Hyperthermia: No Meds Allergies/Adverse Reactions: Allergies Allergy/AdvReac Type Severity Reaction Status Date / Time No Known Allergies Allergy Verified 04/01/18 02:35 - Medications Medications: Current Medications Apixaban (Eliquis) 5 mg PEG Q12 [facility]IDE; Protocol Last Admin: 04/01/18 09:50 Dose: 5 mg Arformoterol Tartrate (Brovana) 15 mcg IH [id number] HEIDE Last Admin: 04/01/18 07:47 Dose: Not Given Arformoterol Tartrate (Brovana) 15 mcg IH [id number] HEIDE Last Admin: 04/01/18 07:50 Dose: 15 mcg Budesonide (Pulmicort Respules) 0.5 mg IH [id number] HEIDE Last Admin: 04/01/18 07:50 Dose: 0.5 mg Collagenase (Santyl) 1 gm TOP DAILY [facility] Last Admin: 04/01/18 09:48 Dose: 1 applic Diltiazem HCl (Cardizem) 30 mg PEG QID [facility] Last Admin: 04/01/18 14:52 Dose: 30 mg Famotidine (Pepcid) 40 mg PEG HS [facility]IDE Furosemide (Lasix) 20 mg PEG DAILY [facility] Last Admin: 04/01/18 09:50 Dose: 20 mg diltiaZEM IVPB 100mg in NS (Cardizem 100mg In Ns) 100 mls @ 5 mls/hr IV .Q20H PRN; Protocol PRN Reason: TITRATE PER MD ORDER Last Admin: 04/01/18 07:11 Dose: 5 mg/hr, 5 mls/hr Meropenem (Merrem Iv 1 Gm Premix) 1 gm in 50 mls @ 100 mls/hr IVPB Q12 [facility]; Protocol Stop: 04/10/18 11:16 Last Admin: 04/01/18 11:17 Dose: 100 mls/hr Vancomycin HCl (Vancomycin 750 Mg In Ns) 750 mg in 250 mls @ 167 mls/hr IVPB Q12H [facility]; Protocol Stop: 04/10/18 11:16 Last Admin: 04/01/18 11:11 Dose: Not Given Levetiracetam (Keppra) 500 mg PO Q12 [facility] Last Admin: 04/01/18 09:50 Dose: 500 mg Magnesium Oxide (Mag-Ox) 400 mg PEG BID [facility] Last Admin: 04/01/18 09:51 Dose: 400 mg Metoprolol Tartrate (Lopressor) 100 mg PEG Q12 [facility] Last Admin: 04/01/18 09:51 Dose: 100 mg Mupirocin (Bactroban Ointment) 0 gm TOP BID [facility] Last Admin: 04/01/18 09:49 Dose: 1 applic Polyethylene Glycol (Miralax) 17 gm PEG BID [facility] Last Admin: 04/01/18 09:47 Dose: 17 gm Physical Exam - Constitutional Appears: No Acute Distress - Head Exam Head Exam: NORMOCEPHALIC - Eye Exam Eye Exam: Normal appearance - ENT Exam ENT Exam: Mucous Membranes Moist - Respiratory Exam Respiratory Exam: NORMAL BREATHING PATTERN - Cardiovascular Exam Cardiovascular Exam: +S1, +S2 - GI/Abdominal Exam GI & Abdominal Exam: Soft. absent: Tenderness - Extremities Exam Extremities exam: Negative for: pedal edema - Skin Skin Exam: Normal Color Results - Vital Signs Recent Vital Signs: Last Vital Signs Temp 97.8 F 04/01/18 17:02 Pulse 109 H 04/01/18 17:02 Resp 19 04/01/18 17:02 BP 92/59 L 04/01/18 17:02 Pulse Ox 100 04/01/18 17:02 - Labs Result Diagrams: 04/01/18 02:31 04/01/18 03:30 Labs: Laboratory Results - last 24 hr 04/01/18 04/01/18 04/01/18 02:31 03:30 03:30 WBC 14.1 H D RBC 4.24 Hgb 11.0 L Hct 34.4 L MCV 81.1 MCH 25.9 MCHC 32.0 RDW 16.6 H Plt Count 484 H MPV 8.9 Gran % 91.7 H Lymph % (Auto) 4.2 L Garfield % (Auto) 4.0 Eos % (Auto) 0.0 L Baso % (Auto) 0.1 Gran # 12.91 H Lymph # (Auto) 0.6 L Garfield # (Auto) 0.6 Eos # (Auto) 0.0 Baso # (Auto) 0.02 Neutrophils % (Manual) 88 H Band Neutrophils % 2 Lymphocytes % (Manual) 7 L Monocytes % (Manual) 3 Platelet Evaluation High PT 14.7 H INR 1.28 APTT 30.3 pCO2 pO2 HCO3 ABG pH ABG Total CO2 ABG O2 Saturation ABG O2 Content ABG Base Excess ABG Hemoglobin ABG Carboxyhemoglobin POC ABG HHb (Measured) ABG Methemoglobin ABG O2 Capacity VBG pH VBG pCO2 VBG HCO3 VBG Total CO2 VBG O2 Sat (Calc) VBG Base Excess VBG Potassium Hgb O2 Saturation Glucose Lactate FiO2 Sodium 135 Potassium 4.3 Chloride 97 L Carbon Dioxide 25 Anion Gap 17 BUN 29 H Creatinine 1.0 Est GFR ( Amer) > 60 Est GFR (Non-Af Amer) > 60 Random Glucose 139 H Calcium 10.0 Phosphorus 3.1 Magnesium 2.0 Total Bilirubin 0.6 AST 69 H ALT 46 Alkaline Phosphatase 116 Lactate Dehydrogenase 691 Total Creatine Kinase 145 Troponin I 0.09 D NT-Pro-B Natriuret Pep 7190 H Total Protein 8.4 H Albumin 3.7 Globulin 4.7 Albumin/Globulin Ratio 0.8 L Venous Blood Potassium Urine Color Urine Appearance Urine pH Ur Specific [place] Urine Protein Urine Glucose (UA) Urine Ketones Urine Blood Urine Nitrate Urine Bilirubin Urine Urobilinogen Ur Leukocyte Esterase Urine RBC Urine WBC Ur Epithelial Cells Urine Bacteria 04/01/18 04/01/18 04/01/18 03:40 05:00 05:15 WBC RBC Hgb Hct MCV MCH MCHC RDW Plt Count MPV Gran % Lymph % (Auto) Garfield % (Auto) Eos % (Auto) Baso % (Auto) Gran # Lymph # (Auto) Garfield # (Auto) Eos # (Auto) Baso # (Auto) Neutrophils % (Manual) Band Neutrophils % Lymphocytes % (Manual) Monocytes % (Manual) Platelet Evaluation PT INR APTT pCO2 30 L pO2 45 331.0 H HCO3 25.7 ABG pH 7.54 H ABG Total CO2 26.6 ABG O2 Saturation 100.0 H ABG O2 Content 13.6 L ABG Base Excess 3.3 H ABG Hemoglobin 9.3 L ABG Carboxyhemoglobin 1.6 H POC ABG HHb (Measured) 0 ABG Methemoglobin 0.9 ABG O2 Capacity 13.6 L VBG pH 7.34 VBG pCO2 48.0 VBG HCO3 25.9 VBG Total CO2 27.4 VBG O2 Sat (Calc) 80.2 H VBG Base Excess -0.4 L VBG Potassium 5.4 H Hgb O2 Saturation 97.5 Glucose 139 H Lactate 6.2 H* FiO2 21.0 100.0 Sodium 134.0 Potassium Chloride 96.0 L Carbon Dioxide Anion Gap BUN Creatinine Est GFR ( Amer) Est GFR (Non-Af Amer) Random Glucose Calcium Phosphorus Magnesium Total Bilirubin AST ALT Alkaline Phosphatase Lactate Dehydrogenase Total Creatine Kinase Troponin I NT-Pro-B Natriuret Pep Total Protein Albumin Globulin Albumin/Globulin Ratio Venous Blood Potassium 5.4 H Urine Color Yellow Urine Appearance Sl cloudy Urine pH 6.0 Ur Specific [place] >= 1.030 Urine Protein 100 H Urine Glucose (UA) Negative Urine Ketones Trace H Urine Blood Moderate H Urine Nitrate Negative Urine Bilirubin Negative Urine Urobilinogen 0.2 Ur Leukocyte Esterase Negative Urine RBC 1 - 3 Urine WBC 1 - 3 Ur Epithelial Cells 0 - 2 Urine Bacteria Mod 04/01/18 04/01/18 08:00 12:00 WBC RBC Hgb Hct MCV MCH MCHC RDW Plt Count MPV Gran % Lymph % (Auto) Garfield % (Auto) Eos % (Auto) Baso % (Auto) Gran # Lymph # (Auto) Garfield # (Auto) Eos # (Auto) Baso # (Auto) Neutrophils % (Manual) Band Neutrophils % Lymphocytes % (Manual) Monocytes % (Manual) Platelet Evaluation PT INR APTT pCO2 pO2 31 51 HCO3 ABG pH ABG Total CO2 ABG O2 Saturation ABG O2 Content ABG Base Excess ABG Hemoglobin ABG Carboxyhemoglobin POC ABG HHb (Measured) ABG Methemoglobin ABG O2 Capacity VBG pH 7.41 7.52 H VBG pCO2 42.0 35.0 L VBG HCO3 26.6 28.6 H VBG Total CO2 27.9 29.7 H VBG O2 Sat (Calc) 60.0 91.1 H VBG Base Excess 1.7 5.7 H VBG Potassium 4.3 3.9 Hgb O2 Saturation Glucose 98 106 Lactate 3.6 H 1.8 FiO2 21.0 21.0 Sodium 136.0 134.0 Potassium Chloride 101.0 105.0 Carbon Dioxide Anion Gap BUN Creatinine Est GFR ( Amer) Est GFR (Non-Af Amer) Random Glucose Calcium Phosphorus Magnesium Total Bilirubin AST ALT Alkaline Phosphatase Lactate Dehydrogenase Total Creatine Kinase Troponin I NT-Pro-B Natriuret Pep Total Protein Albumin Globulin Albumin/Globulin Ratio Venous Blood Potassium 4.3 3.9 Urine Color Urine Appearance Urine pH Ur Specific [place] Urine Protein Urine Glucose (UA) Urine Ketones Urine Blood Urine Nitrate Urine Bilirubin Urine Urobilinogen Ur Leukocyte Esterase Urine RBC Urine WBC Ur Epithelial Cells Urine Bacteria Assessment & Plan - Assessment and Plan (Free Text) Assessment: 72M s/p left hip debridement POD4 now with RLL pneumonia Plan: Left hip ulcer not source of sepsis RLL pneumonia ABx per ID Local wound care Apply Mupirocin to wound Medical management per primary Further recs per Dr. Geo Cardoza PGY3 <Garcia Carson - Last Filed: 04/08/18 18:09> Meds - Medications Medications: Current Medications Acetaminophen (Tylenol 325mg Tab) 650 mg PEG Q4H PRN PRN Reason: temp >99.5 Apixaban (Eliquis) 5 mg PEG Q12 HEIDE; Protocol Last Admin: 04/08/18 10:41 Dose: 5 mg Arformoterol Tartrate (Brovana) 15 mcg IH [id number] [facility] Last Admin: 04/08/18 07:42 Dose: 15 mcg Budesonide (Pulmicort Respules) 0.5 mg IH [id number] [facility] Last Admin: 04/08/18 07:41 Dose: 0.5 mg Ciprofloxacin (Ciloxan 0.3% Ophth Soln) 2 drop OD TID [facility] Last Admin: 04/08/18 17:55 Dose: 2 drop Collagenase (Santyl) 1 gm TOP DAILY [facility] Last Admin: 04/08/18 11:08 Dose: 1 applic Famotidine (Pepcid) 40 mg PEG HS [facility] Last Admin: 04/07/18 21:43 Dose: 40 mg Ferrous Sulfate (Feosol Liq) 300 mg PEG BID [facility] Last Admin: 04/08/18 17:55 Dose: 300 mg Furosemide (Lasix) 20 mg PEG DAILY [facility] Last Admin: 04/08/18 10:41 Dose: 20 mg Meropenem (Merrem Iv 1 Gm Premix) 1 gm in 50 mls @ 100 mls/hr IVPB Q12 [facility]; Protocol Last Admin: 04/08/18 10:42 Dose: 100 mls/hr Vancomycin HCl (Vancomycin 1gm) 1 gm in 250 mls @ 167 mls/hr IVPB Q12H [facility]; Protocol Last Admin: 04/08/18 14:35 Dose: 167 mls/hr Levetiracetam (Keppra) 500 mg PEG Q12 [facility] Magnesium Oxide (Mag-Ox) 400 mg PEG BID [facility] Last Admin: 04/08/18 17:55 Dose: 400 mg Metoprolol Tartrate (Lopressor) 100 mg PEG Q12 [facility] Last Admin: 04/08/18 10:41 Dose: 100 mg Mupirocin (Bactroban Ointment) 0 gm TOP BID [facility] Last Admin: 04/08/18 17:55 Dose: 1 applic Potassium Chloride (Potassium Chloride Oral Soln) 20 meq PO BRK [facility] Last Admin: 04/08/18 10:47 Dose: 20 meq Results - Vital Signs Recent Vital Signs: Last Vital Signs Temp 99.2 F 04/08/18 18:00 Pulse 111 H 04/08/18 18:00 Resp 18 04/08/18 18:00 BP 110/78 04/08/18 18:00 Pulse Ox 96 04/08/18 00:01 - Labs Result Diagrams: 04/08/18 07:30 04/07/18 08:15 Labs: Laboratory Results - last 24 hr 04/08/18 07:30 WBC 8.1 RBC 4.01 Hgb 10.1 L Hct 32.1 L MCV 80.0 MCH 25.2 MCHC 31.5 RDW 16.1 H Plt Count 453 H MPV 8.3 Assessment & Plan - Assessment and Plan (Free Text) Plan: This consult done under my direct supervision Ngoc Carson MD FACS
--- NOTE | 2018-04-01 18:34 | CON ---
DATE: 04/01/2018 LOCATION: The patient seen in room 276, bed 2. CHIEF COMPLAINT: Questionable change in mental status, low-grade fevers and decreased activity according to the patient's daughter x1 day duration. HISTORY OF PRESENT ILLNESS: This is a 72-year-old male with history of atrial fibrillation, recent hospitalization, was just discharged with history of hypertension, chronic obstructive lung disease, dementia, TIA, the patient with cerebrovascular accident with right-sided weakness, bedridden, contracted with throat cancer and cirrhosis. Does not verbalize well, who was just discharged, had left hip ulcer debridement on 03/28/2018, which had ESBL, now he was brought back by his daughter who states that the patient is having cough and according to the patient, the patient has decreased activity. REVIEW OF SYSTEMS: Reveals the patient does have low-grade fevers and he is bedridden and contracted in bed and difficult to evaluate activity parameters. He does have shortness of breath. Does not verbalize well. No diarrhea reported. No bright red blood per rectum reported. A 14-point review of systems is performed. PAST MEDICAL HISTORY: Significant for atrial fibrillation, hypertension, chronic obstructive lung disease, TIA, dementia, cerebrovascular accident, right-sided weakness, throat cancer, cirrhosis, bedridden, and contracted. PAST SURGICAL HISTORY: Significant for left hip ulcer debridement on 03/28/2018, the patient also had a right hernia repair in the past and the patient also suffers from depression. ALLERGIES: NO KNOWN ALLERGIES. MEDICATIONS AT HOME: Reveals the patient to be on Augmentin, Lasix, and famotidine. PHYSICAL EXAMINATION: GENERAL: The patient is in bed, in no acute distress. VITAL SIGNS: Temperature of 99, heart rate of 113, respiratory rate of 22 and blood pressure is 140/100 and on admission, it was 92/43. HEENT: Unremarkable. NECK: Supple. LUNGS: Have decreased breath sounds. HEART: Normal S1 and S2. ABDOMEN: Soft and nontender. EXTREMITIES: hip ulcers and multiple ulcers in the legs reveal mild erythema. LABORATORY DATA: Reveals a white count of 14,100, hemoglobin of 11 and platelets of 484. Coagulation is noted. Chemistries reveals a BUN of 29 and creatinine of 1. The BNP is 7190 and urinalysis is noted 1-3 wbc's. Microbiology is noted. The ESBL E. Coli and left hip cultures from 03/28/2018, the patient also had Enterococcus, Enterococcus is sensitive to vancomycin and ampicillin. ASSESSMENT AND PLAN: This is a 72-year-old male with atrial fibrillation, hypertension, chronic obstructive lung disease, dementia, depression, transient ischemic attack, cerebrovascular accident with right-sided weakness, throat cancer, cirrhosis, contracted, bedridden with a positive chest x-ray, leukocytosis, tachycardia, change in mental status with #1 is sepsis with right lower lobe healthcare-associated pneumonia with extended-spectrum beta-lactamase Escherichia coli from the wound of the left hip. We will treat the patient with vancomycin and meropenem, pending blood cultures, urine culture, repeat wound cultures, procalcitonin and nasal methicillin-sensitive Staphylococcus aureus screen. Overall, prognosis is quite poor for this patient with no quality of life, should consider supportive care and we will follow with you. Efra Craig MD
--- NOTE | 2018-04-01 22:44 | CON ---
DATE: 04/01/2018 REFERRING PHYSICIAN: Mariana Fernandez MD REASON FOR CONSULT: History of head and neck cancer, chronic lung disease, brought in by the family with change in mental status and sepsis. HISTORY OF PRESENT ILLNESS: This is a 72-year-old gentleman just recently discharged from the hospital, has a large decubiti ulcer which was debrided, was just sent home, brought in by the daughter because of fever and sepsis. He was admitted, started on antibiotics. Presently, he is on noninvasive ventilation. Feels okay, more awake and alert. He has not enough cough or sputum production. No hemoptysis. No hematemesis. He does have a decubiti ulcer and lower extremity contracture. PAST MEDICAL HISTORY: Head and neck cancer requiring resection, atrial fibrillation, hypertension, chronic lung disease, cirrhotic liver, dementia, TIAs and CVA with right-sided hemiparesis. ALLERGIES: NONE KNOWN. SOCIAL HISTORY: Stopped smoking. Denies any alcohol use. FAMILY HISTORY: No significant cardiopulmonary disease reported. MEDICATIONS: Bacitracin ointment to affected area, Brovana inhale twice a day, Cardizem 30 mg four times a day, also was given IV Cardizem, Eliquis 5 mg twice a day, Keppra 500 mEq twice a day, Lasix 20 mg daily, metoprolol tartrate 100 mg twice a day, magnesium oxide 400 mg twice a day, meropenem 1 g IV every 12 hours, MiraLAX 17 g twice a day, Pepcid 40 mg h.s., Pulmicort inhale twice a day, Santyl to affected area, sodium chloride normal saline 100 mL/hour, vancomycin 750 mg every 12 hours. REVIEW OF SYSTEMS: He is sleepy, arousable, not much verbal. Not much cough or sputum production. No hemoptysis. No hematemesis. No hematuria. No diarrhea. Has a decubiti ulcer. PHYSICAL EXAMINATION: VITAL SIGNS: On noninvasive ventilation, temperature is 98, heart is 108, respiratory rate is 18, blood pressure 142/85, pulse ox is 100% on face mask. HEENT: Small oral cavity. Crowded airway. NECK: Supple. No JVD. LUNGS: Fair airflow with rhonchi. HEART: S1 and S2. ABDOMEN: Soft, nontender, nondistended. G-tube area looks okay. EXTREMITIES: There is no edema. Has a pressure ulcer, some contracture of lower extremity, decubiti ulcer on the back and hip. NEUROLOGIC: Awake, alert. LABORATORY DATA: Shows hemoglobin 11.0, hematocrit 34.4, WBC 14, platelet count is 484. INR 1.28. PTT is 30. Had a ABG done yesterday, shows pH 7.54, pCO2 30, O2 331, this is on 100% oxygen, seems like on noninvasive ventilation. Sodium 135, potassium 4.3, chloride 97, bicarbonate 25, BUN 29, creatinine 1.0, glucose 139, calcium 10, phosphorus 3.1, magnesium 2.0, total bili 0.6, AST 69, ALT 46, alk phos is 116. Troponin less than 0.01. ProBNP is 7190. DIAGNOSTIC DATA: Had a chest x-ray done, shows patchy infiltrate on the right lower lobe area. IMPRESSION AND PLAN: Healthcare-associated pneumonia, obstructive lung disease, atrial fibrillation, cerebrovascular accident, history of head and neck cancer requiring resection, decubiti ulcer requiring debridement, history of rectal bleed, gastroesophageal reflux disease, gastritis, constipation. Pulmonary point of view, doing okay. Spoke to nursing staff and also spoke to respiratory therapist. We will try to switch to nasal cannula 3 to 4 L, titrate FiO2 to pulse ox 90. Keep head at 45 degrees. Continue bronchodilator, gastric prophylaxis, deep venous thrombosis prophylaxis. Follow hemoglobin and hematocrit. May use BiPAP if any respiratory distress. Thank you and we will follow with you Fatoumata Cruz MD
[2018-04-02] MEDS: diltiaZEM IVPB 100mg in NS 100 ML IV PRN ×2 (00:01→23:24)
--- NOTE | 2018-04-02 05:15 | HP ---
DATE OF EXAM: The patient was seen and examined at the bedside, 04/01/2018. CHIEF COMPLAINT: Coughing, fatigue and tried. HISTORY OF PRESENT ILLNESS: Mr. Geo Ewing 72 years old male with past medical history of atrial fibrillation, on Eliquis; hypertension, COPD, throat cancer, cirrhosis, dementia, TIA, CVA with right-sided hemiparesis, came to the emergency department complaining as per EMS as per daughter coughing and decrease activity according to family. According to history obtained, the patient was recently discharged 2 days ago after being treated for altered mental status and sepsis, on Maxipime. Wound debridement was done by Dr. Guardado. Wound culture was done yesterday. Lab called me that wound culture shows ESBL, I spoke to Dr. Guardado, he call the daughter, Eladia and the plan was to start antibiotics, but the patient came today over here and we will call consult with ID. PAST MEDICAL HISTORY: As above. Pacemaker, COPD, left-sided weakness, dementia, multiple skin discoloration, left inguinal hernia, cirrhosis of the liver, and inguinal hernia repair. FAMILY HISTORY: Father and mother, noncontributory. HABITS: No smoking. No drugs. No ethanol. ALLERGIES: THE PATIENT IS NOT ALLERGIC WITH ANY MEDICATIONS. REVIEW OF SYSTEMS: The patient was seen and examined at the bedside, looking comfortable, not much change in the status, having cough, and shortness of breath. No fever. No chills. No headache. No dizziness. No hematuria or hematochezia. PHYSICAL EXAMINATION: VITAL SIGNS: Temperature 97.8, pulse 109, and blood pressure 92/59. HEENT: Head; normocephalic, atraumatic. Eyes; PERRLA. Extraocular muscles intact. Conjunctivae clear. Nose patent. Mucous membranes moist. NECK: Supple. No carotid bruit. No JVD or thyromegaly. CHEST: Bilaterally symmetrical. HEART: S1 and S2 positive. LUNGS: Clear to auscultation. ABDOMEN: Soft. Bowel sounds present. No organomegaly. EXTREMITIES: No edema. No cyanosis. NEUROLOGIC: The patient is awake and alert. Moving all four extremities. No focal deficits. LABORATORY DATA: White blood cells 14.1, hemoglobin noted , hematocrit 34.4, and platelets 484. Sodium 135, potassium 4.3, BUN 29, creatinine 1, glucose 139, and AST 69. ASSESSMENT AND PLAN: Mr. Geo Ewing 72 years old male with leukocytosis, anemia, thrombocytosis, hypochloremia, increased BUN, hyperglycemia, abnormal liver function test, congestive heart failure, proteinuria, ketonuria, hematuria, seen by Dr. Garcia Guardado, now has left lower lobe pneumonia. Continue antibiotic as per ID. Seen by Dr. Craig and surgical team. Recent history of atrial fibrillation, on Eliquis. Recent hospitalization, wound debridement was done. Hypertension, chronic obstructive pulmonary disease, dementia, transient ischemic attack, history of cerebrovascular accident with right-sided weakness, bedridden, continue throat cancer and cirrhosis. Does not verbalize well, but discharged after debridement, came to know that the patient has extended-spectrum beta-lactamases, now brought back by the daughter for IV antibiotics. Discussion done with all consultants and with nursing staff. Repeat labs. We will follow up. Mariana Fernandez MD JAMES
[2018-04-02] MEDS: Arformoterol 15 mcg/2 ml Inh Sol IH SCH ×4 (07:36→20:09)
[2018-04-02] MEDS: Budesonide 0.5 mg/2 ml Inhal Susp UD IH SCH ×2 (07:38→20:07)
[2018-04-02 08:11] LABS: HEMOGLOBIN 9.5 g/dL (14.0-18.0); MEAN CELL VOLUME 80.2 fl (80.0-105.0); MEAN CORPUSCULAR HEMOGLOBIN 25.5 pg (25.0-35.0); MEAN CORPUSCULAR HGB CONC 31.8 g/dl (31.0-37.0); MEAN PLATELET VOLUME 8.4 fl (7.0-11.0); RBC 3.73 10^6/uL (3.5-6.1); RED CELL DISTRIBUTION WIDTH 16.5 % (11.5-14.5); WHITE BLOOD COUNT 14.9 10^3/uL (4.5-11.0)
[2018-04-02 08:18] LABS: IRON 22 ug/dL (45-180)
[2018-04-02 08:19] LABS: ALB/GLOB RATIO 0.8 (1.1-1.8); ALBUMIN 3.2 g/dL (3.0-4.8); ALT/SGPT 50 U/L (7-56); AST/SGOT 71 U/L (17-59); BLOOD UREA NITROGEN 23 mg/dL (7-21); CALCIUM 8.7 mg/dL (8.4-10.5); GFR NON-AFRICAN AMERICAN > 60; HDL CHOLESTEROL 32 mg/dL (29-60)
[2018-04-02 08:28] LABS: % IRON SATURATION 10 % (20-55); TOTAL IRON BINDING CAPACITY 210 ug/dL (261-462)
[2018-04-02 08:30] LABS: LDL CHOLESTEROL 46 mg/dL (0-129)
[2018-04-02] MEDS: Magnesium Oxide 400 mg Tab UD PEG SCH ×2 (12:02→17:21)
[2018-04-02] MEDS: Meropenem IV 1 gm in NS 1 GM/50 ML BAG IVPB SCH ×2 (12:04→23:24)
[2018-04-02] MEDS: POLYETHYLENE GLYCOL 3350 17 GM/Dose PACKET PEG SCH ×2 (12:04→17:21)
[2018-04-02] MEDS: Collagenase 250 Units/gm Ointment(30 gm) TOP SCH (12:05)
[2018-04-02] MEDS: Mupirocin 2% Ointment 15 GM TUBE TOP SCH ×2 (12:05→17:25)
[2018-04-02] MEDS: Vancomycin 750mg 750 MG/250 ML BAG IVPB SCH ×2 (13:12→23:31)
[2018-04-02 16:33] LABS: FOLATE 19.3 ng/mL
--- NOTE | 2018-04-02 17:11 | CP.PCM.PN ---
Subjective - Date & Time of Evaluation Date of Evaluation: 04/02/18 Time of Evaluation: 09:15 - Subjective Subjective: Afebrile, not in distress. Objective - Vital Signs/Intake and Output Vital Signs (last 24 hours): Temp Pulse Resp BP Pulse Ox 97.8 F 109 H 19 92/59 L 100 04/01/18 17:02 04/01/18 18:09 04/01/18 17:02 04/01/18 18:09 04/01/18 17:02 - Medications Medications: Current Medications Acetaminophen (Tylenol 325mg Tab) 650 mg PEG Q4H PRN PRN Reason: temp >99.5 Apixaban (Eliquis) 5 mg PEG Q12 [facility]; Protocol Last Admin: 04/01/18 09:50 Dose: 5 mg Arformoterol Tartrate (Brovana) 15 mcg IH [id number] [facility] Last Admin: 04/01/18 07:47 Dose: Not Given Arformoterol Tartrate (Brovana) 15 mcg IH [id number] [facility] Last Admin: 04/01/18 20:17 Dose: 15 mcg Budesonide (Pulmicort Respules) 0.5 mg IH [id number] [facility] Last Admin: 04/01/18 20:17 Dose: 0.5 mg Collagenase (Santyl) 1 gm TOP DAILY [facility] Last Admin: 04/01/18 09:48 Dose: 1 applic Diltiazem HCl (Cardizem) 30 mg PEG QID [facility] Last Admin: 04/01/18 18:09 Dose: Not Given Famotidine (Pepcid) 40 mg PEG HS [facility] Furosemide (Lasix) 20 mg PEG DAILY [facility] Last Admin: 04/01/18 09:50 Dose: 20 mg diltiaZEM IVPB 100mg in NS (Cardizem 100mg In Ns) 100 mls @ 5 mls/hr IV .Q20H PRN; Protocol PRN Reason: TITRATE PER MD ORDER Last Admin: 04/01/18 07:11 Dose: 5 mg/hr, 5 mls/hr Meropenem (Merrem Iv 1 Gm Premix) 1 gm in 50 mls @ 100 mls/hr IVPB Q12 [facility]; Protocol Stop: 04/10/18 11:16 Last Admin: 04/01/18 11:17 Dose: 100 mls/hr Vancomycin HCl (Vancomycin 750 Mg In Ns) 750 mg in 250 mls @ 167 mls/hr IVPB Q12H [facility]; Protocol Stop: 04/10/18 11:16 Last Admin: 04/01/18 11:11 Dose: Not Given Levetiracetam (Keppra) 500 mg PO Q12 [facility] Last Admin: 04/01/18 09:50 Dose: 500 mg Magnesium Oxide (Mag-Ox) 400 mg PEG BID [facility] Last Admin: 04/01/18 18:08 Dose: 400 mg Metoprolol Tartrate (Lopressor) 100 mg PEG Q12 [facility] Last Admin: 04/01/18 09:51 Dose: 100 mg Mupirocin (Bactroban Ointment) 0 gm TOP BID [facility] Last Admin: 04/01/18 18:01 Dose: 1 applic Polyethylene Glycol (Miralax) 17 gm PEG BID [facility] Last Admin: 04/01/18 18:10 Dose: 17 gm - Labs Labs: 04/01/18 02:31 04/01/18 03:30 PT 14.7 SECONDS (9.4-12.5) H 04/01/18 03:30 INR 1.28 04/01/18 03:30 APTT 30.3 Seconds (25.1-36.5) 04/01/18 03:30 - Constitutional Appears: Chronically Ill - Neck Exam Neck Exam: absent: Meningismus - Respiratory Exam Respiratory Exam: Decreased Breath Sounds - Cardiovascular Exam Cardiovascular Exam: +S1, +S2 - GI/Abdominal Exam GI & Abdominal Exam: Soft. absent: Tenderness Assessment and Plan - Assessment and Plan (Free Text) Plan: Assessment sepsis due to right lower lobe HCAP with ESBL E. coli left hip wound infection HTN COPD atrial fibrillation throat cancer dementia history of CVA of left frontal lobe liver cirrhosis Plan continue Vancomycin and Merrem day 2 for at least 7 days and will continue to monitor clinically
--- NOTE | 2018-04-03 00:26 | PN ---
DATE: 04/02/2018 PULMONARY PROGRESS NOTE SUBJECTIVE: He is lying in the bed, head at 45 degrees, requesting cigarette to smoke. Oxygenation is much better. Cough is better. No nausea. No vomiting. No diarrhea. Has a pressure ulcer, contracture of lower extremity. OBJECTIVE: GENERAL: In no acute distress. VITAL SIGNS: Temperature is 98, heart rate is 111, respiratory rate is 18, blood pressure is 122/74, and pulse ox 92% on room air. HEENT: Moist mucous membranes. Crowded airway. NECK: Supple. No JVD. LUNGS: Has a fair airflow with few rhonchi. HEART: S1 and S2. ABDOMEN: Soft, nontender, and nondistended. G-tube area looks okay. EXTREMITIES: Has a contracture, multiple pressure ulcers. NEUROLOGIC: Awake, alert, does follow simple commands, and confused. MEDICATIONS: He is on Brovana inhaled twice a day, Cardizem IV drip, Eliquis 5 mg twice a day, Keppra 500 mg twice a day, Lasix 20 mg daily, metoprolol tartrate 100 mg twice a day, mag oxide 400 mg twice a day, meropenem 1 g IV every 12 hours, MiraLax 17 g twice a day, Pepcid 40 mg at bedtime, Pulmicort inhaled twice a day, Santyl affected area, Tylenol p.r.n., and vancomycin 750 mg every 12 hours. LABORATORY DATA: Shows hemoglobin 9.5, hematocrit 29.9, WBC 14.9, and platelet is 381. Sodium 135, potassium 3.6, chloride 100, bicarbonate 27, BUN 23, creatinine 0.7, glucose 109, hemoglobin A1c 5.4, and calcium 8.7. Iron is 22, AST 71, ALT 50, and alk phos is 111. Albumin is 3.2. Procalcitonin yesterday 2.50. TSH 4.90. Cholesterol is 87. Microbiology; blood culture, urine culture, and nares culture is unremarkable. IMPRESSION AND PLAN: Healthcare-associated pneumonia; obstructive lung disease; atrial fibrillation; cerebrovascular accident; history of head and neck cancer, requiring resection; decubiti ulcer, requiring debridement; history of rectal bleed; gastroparesis; gastritis; and constipation. Pulmonary point of view, doing okay. Spoke to nursing staff. His oxygenation is much better, pulse ox 98% on 2 L nasal cannula, may titrate FiO2 to pulse ox 90 and above, bronchodilator, antibiotics, pressure ulcer precaution. Gastric prophylaxis, anticoagulation. Spoke to nursing staff. Thank you and we will follow with you. Fatoumata Cruz MD
[2018-04-03] MEDS: Budesonide 0.5 mg/2 ml Inhal Susp UD IH SCH ×2 (08:07→19:51)
[2018-04-03] MEDS: Arformoterol 15 mcg/2 ml Inh Sol IH SCH ×2 (08:08→19:51)
--- NOTE | 2018-04-03 10:02 | PN ---
DATE: 04/02/2018 SUBJECTIVE: The patient was seen and examined at the bedside on 04/02/2018. No changes , looking comfortable, afebrile. No fever, no chills. No nausea or vomiting. No hematuria, no hematochezia. No headache, no dizziness. No chest pain or palpations. PHYSICAL EXAMINATION: VITAL SIGNS: Temperature 97.8, pulse 109, respirations 19, blood pressure 92/59, pulse oximetry 100. HEENT: Head is normocephalic, atraumatic. Eyes: PERRLA. Extraocular muscles are intact. Conjunctivae clear. Nose patent. Mucous membrane moist. NECK: Supple. No carotid bruits. No JVD or thyromegaly. CHEST: Bilaterally symmetrical. HEART: S1 and S2, positive. LUNGS: Clear to auscultation. ABDOMEN: Soft, bowel sounds present. No organomegaly. EXTREMITIES: No edema. No cyanosis. NEUROLOGIC: The patient is awake, alert. MEDICATIONS: Tylenol, Eliquis, Brovana, Pulmicort, Cardizem, Pepcid, diltiazem, meropenem, Percocet, Keppra, metoprolol, Bactroban ointment, MiraLax. LABORATORY DATA: White blood cells 14.1, hemoglobin 11.0, hematocrit 34.4, platelets 484. Sodium 135, potassium 4.3, BUN 29, creatinine 1.0, glucose 139. ASSESSMENT AND PLAN: Mr. Geo Ewing is a 72-year-old male with leukocytosis, anemia, thrombocytosis, hyperglycemia, has sepsis due to right lower lobe HCAP with extended-spectrum beta-lactamase Escherichia coli, left hip wound infection, hypertension, chronic obstructive pulmonary disease, atrial fibrillation, history of throat and tonsil cancer, dementia, history of cerebrovascular accident with left lobe cirrhosis of the liver. Continue vancomycin and Merrem, day 2 of at least 7 days. We will continue monitoring clinically. Surgeon, ID and Pulmonary is on the case. Out of bed, physical therapy, repeat labs, we will follow up. Mariana Fernandez MD [facility] # [id number] MTDJaclyn
[2018-04-03] MEDS: Magnesium Oxide 400 mg Tab UD PEG SCH ×2 (10:27→18:25)
[2018-04-03] MEDS: Meropenem IV 1 gm in NS 1 GM/50 ML BAG IVPB SCH ×2 (10:27→22:31)
[2018-04-03] MEDS: POLYETHYLENE GLYCOL 3350 17 GM/Dose PACKET PEG SCH ×2 (10:28→17:15)
[2018-04-03] MEDS: Mupirocin 2% Ointment 15 GM TUBE TOP SCH ×2 (11:47→18:26)
--- NOTE | 2018-04-03 12:32 | CP.PCM.PN ---
Subjective - Date & Time of Evaluation Date of Evaluation: 04/03/18 Time of Evaluation: 09:50 - Subjective Subjective: No fevers, comfortable. Objective - Vital Signs/Intake and Output Vital Signs (last 24 hours): Temp Pulse Resp BP Pulse Ox 97.5 F L 108 H 18 130/72 99 04/02/18 12:00 04/02/18 12:03 04/02/18 12:00 04/02/18 12:03 04/02/18 06:00 Intake and Output: 04/02/18 04/02/18 06:59 18:59 Intake Total 460 410 Balance 460 410 - Medications Medications: Current Medications Acetaminophen (Tylenol 325mg Tab) 650 mg PEG Q4H PRN PRN Reason: temp >99.5 Apixaban (Eliquis) 5 mg PEG Q12 [facility]; Protocol Last Admin: 04/02/18 12:03 Dose: 5 mg Arformoterol Tartrate (Brovana) 15 mcg IH [id number] [facility] Last Admin: 04/02/18 07:36 Dose: Not Given Arformoterol Tartrate (Brovana) 15 mcg IH [id number] [facility] Last Admin: 04/02/18 07:38 Dose: 15 mcg Budesonide (Pulmicort Respules) 0.5 mg IH [id number] [facility] Last Admin: 04/02/18 07:38 Dose: 0.5 mg Collagenase (Santyl) 1 gm TOP DAILY [facility] Last Admin: 04/02/18 12:05 Dose: 1 applic Famotidine (Pepcid) 40 mg PEG HS [facility] Last Admin: 04/01/18 22:21 Dose: 40 mg Furosemide (Lasix) 20 mg PEG DAILY [facility] Last Admin: 04/02/18 12:03 Dose: 20 mg diltiaZEM IVPB 100mg in NS (Cardizem 100mg In Ns) 100 mls @ 5 mls/hr IV .Q20H PRN; Protocol PRN Reason: TITRATE PER MD ORDER Last Admin: 04/02/18 00:01 Dose: 5 mg/hr, 5 mls/hr Meropenem (Merrem Iv 1 Gm Premix) 1 gm in 50 mls @ 100 mls/hr IVPB Q12 [facility]; Protocol Stop: 04/10/18 11:16 Last Admin: 04/02/18 12:04 Dose: 100 mls/hr Vancomycin HCl (Vancomycin 750 Mg In Ns) 750 mg in 250 mls @ 167 mls/hr IVPB Q12H [facility]; Protocol Stop: 04/10/18 11:16 Last Admin: 04/02/18 13:12 Dose: 167 mls/hr Levetiracetam (Keppra) 500 mg PO Q12 [facility] Last Admin: 04/02/18 12:03 Dose: 500 mg Magnesium Oxide (Mag-Ox) 400 mg PEG BID [facility] Last Admin: 04/02/18 12:02 Dose: 400 mg Metoprolol Tartrate (Lopressor) 100 mg PEG Q12 [facility] Last Admin: 04/02/18 12:03 Dose: 100 mg Mupirocin (Bactroban Ointment) 0 gm TOP BID [facility] Last Admin: 04/02/18 12:05 Dose: 1 applic Polyethylene Glycol (Miralax) 17 gm PEG BID [facility] Last Admin: 04/02/18 12:04 Dose: 17 gm - Labs Labs: 04/02/18 07:55 04/02/18 07:55 PT 14.7 SECONDS (9.4-12.5) H 04/01/18 03:30 INR 1.28 04/01/18 03:30 APTT 30.3 Seconds (25.1-36.5) 04/01/18 03:30 - Constitutional Appears: Chronically Ill - Head Exam Head Exam: NORMAL INSPECTION - Respiratory Exam Respiratory Exam: Decreased Breath Sounds - Cardiovascular Exam Cardiovascular Exam: +S1, +S2 - GI/Abdominal Exam GI & Abdominal Exam: Soft. absent: Tenderness Assessment and Plan - Assessment and Plan (Free Text) Plan: Assessment sepsis due to right lower lobe HCAP with ESBL E. coli left hip wound infection HTN COPD atrial fibrillation throat cancer dementia history of CVA of left frontal lobe liver cirrhosis Plan continue Vancomycin and Merrem day 3 for at least 7 days and will continue to monitor clinically
[2018-04-03] MEDS: Collagenase 250 Units/gm Ointment(30 gm) TOP SCH (13:47)
[2018-04-03] MEDS: Vancomycin 750mg 750 MG/250 ML BAG IVPB SCH ×2 (13:47→22:31)
--- NOTE | 2018-04-03 21:42 | PN ---
DATE: 04/03/2018 pulmonary progress note REFERRING PHYSICIAN: Mariana Fernandez MD. SUBJECTIVE: He is lying in the bed, head at 45 degrees. No acute distress. No cough. No sputum production. No nausea. No vomiting. No diarrhea. Multiple pressure ulcers. Has a contracture of the lower extremity. OBJECTIVE: GENERAL: In no acute distress. VITAL SIGNS: Temperature is 98, heart rate is 110, respiratory rate is 18, blood pressure 129/76, pulse ox 99% on room air. HEENT: Moist mucous membrane. No ulcer or thrush noted. NECK: Supple. No JVD. LUNGS: Have a fair airflow with few rhonchi. HEART: S1 and S2. ABDOMEN: Soft, nontender and nondistended. G-tube area looks okay. EXTREMITY: Has multiple pressure ulcers, has a contracture of lower extremity. NEUROLOGICAL: Awake, alert, not much verbal. MEDICATIONS: He is on Bactroban ointment at affected area twice a day, Brovana inhaled twice a day, on IV Cardizem, Eliquis 5 mg twice a day, Keppra 500 mg twice a day, Lasix 20 mg daily, metoprolol tartrate is at 100 mg twice a day, mag oxide at 400 mg twice a day, meropenem 1 g IV every 12 hours, MiraLax 17 g G-tube twice a day, Pepcid 40 mg at bedtime, Pulmicort inhaled twice a day, Santyl 1 g daily, Tylenol p.r.n., vancomycin 750 mg every 12 hours. LABORATORY DATA: Reviewed, noted no new lab is available since yesterday. Microbiology: Blood culture, urine culture, nares culture are unremarkable. IMPRESSION AND PLAN: Cerebrovascular accident, history of head and neck cancer requiring resection, decubiti ulcer requiring debridement, history of rectal bleed, gastroparesis, gastritis, constipation, atrial fibrillation. Pulmonary point of view, doing okay. Continue bronchodilator. Keep head at 45 degrees. We will add the gastrostomy tube, Cardizem, gastric prophylaxis. On anticoagulation. Follow up labs in the morning. Pressure ulcer precaution. Thank you and we will follow with you. Fatoumata Cruz MD
[2018-04-04 07:21] LABS: HEMOGLOBIN 8.1 g/dL (14.0-18.0); MEAN CELL VOLUME 79.1 fl (80.0-105.0); MEAN CORPUSCULAR HEMOGLOBIN 25.2 pg (25.0-35.0); MEAN CORPUSCULAR HGB CONC 31.9 g/dl (31.0-37.0); MEAN PLATELET VOLUME 8.4 fl (7.0-11.0); RBC 3.21 10^6/uL (3.5-6.1); RED CELL DISTRIBUTION WIDTH 16.4 % (11.5-14.5); WHITE BLOOD COUNT 7.9 10^3/uL (4.5-11.0)
[2018-04-04] MEDS: Arformoterol 15 mcg/2 ml Inh Sol IH SCH ×4 (08:04→20:10)
[2018-04-04] MEDS: Budesonide 0.5 mg/2 ml Inhal Susp UD IH SCH ×2 (08:04→20:09)
--- NOTE | 2018-04-04 08:31 | PN ---
DATE: 04/03/2018 SUBJECTIVE: The patient is a 72-year-old male. The patient was seen and examined at the bedside on 04/03/2018. The patient's nurse was changing patient's dressing and looking comfortable. No nausea, vomiting or diarrhea. No hematuria. No hematochezia. No headache. No dizziness. No chest pain. No palpitations. No fever. No chills. The patient is a very poor historian. PHYSICAL EXAMINATION VITAL SIGNS: Temperature 97.5, pulse 108, respiratory rate 18, blood pressure 130/72, and pulse oximetry 99. HEENT: Head normocephalic, atraumatic. Eyes, PERRLA. Extraocular muscles intact. Conjunctivae clear. Nose patent. Mucous membranes moist. NECK: Supple. No carotid bruit. No JVD or thyromegaly. CHEST: Bilaterally symmetrical. HEART: S1 and S2 positive. LUNGS: Clear to auscultation. ABDOMEN: Soft. Bowel sounds positive. No organomegaly. EXTREMITIES: No edema. No cyanosis. NEUROLOGIC: The patient is awake and alert. Moving all 4 extremities. No focal deficits. MEDICATIONS: Eliquis, Brovana, Pulmicort, Pepcid, Lasix, vancomycin, Keppra, magnesium oxide, Lopressor, and MiraLax. LABORATORY DATA: White blood cells 14.9, hemoglobin 9.5, hematocrit 29.9, platelets 381. Sodium 135, potassium 3.6, BUN 26, creatinine 0.7, glucose 109. ASSESSMENT AND PLAN: Mr. Geo Ewing is a [id number] with leukocytosis, anemia, sepsis due to right lower lobe healthcare-associated pneumonia with extended spectrum beta lactamase Escherichia coli, left hip wound infection, hypertension, chronic obstructive pulmonary disease, atrial fibrillation, throat cancer, dementia, history of cerebrovascular accident with left frontal lobe, liver cirrhosis, decubitus ulcer at multiple places, history of throat cancer, has percutaneous endoscopic gastrostomy tube. Continue vancomycin and Merrem. Today is day 3 of 7 days. We will repeat labs. Bedside physical therapy. Nicole in patient's position more often. Tube feeding. We will follow up. Mariana Fernandez MD [facility] # [id number]
[2018-04-04 09:14] LABS: HEMOGLOBIN 9.4 g/dL (14.0-18.0)
[2018-04-04 09:31] LABS: ALB/GLOB RATIO 0.7 (1.1-1.8); ALBUMIN 2.4 g/dL (3.0-4.8); ALT/SGPT 44 U/L (7-56); AST/SGOT 53 U/L (17-59); BLOOD UREA NITROGEN 18 mg/dL (7-21); CALCIUM 8.1 mg/dL (8.4-10.5); GFR NON-AFRICAN AMERICAN > 60
[2018-04-04] MEDS: Ferrous Sulfate 300 mg/5 mL Liq UD PO SCH ×2 (10:48→17:35)
[2018-04-04] MEDS: Meropenem IV 1 gm in NS 1 GM/50 ML BAG IVPB SCH ×2 (10:51→22:07)
[2018-04-04] MEDS: Magnesium Oxide 400 mg Tab UD PEG SCH ×2 (10:51→17:35)
[2018-04-04] MEDS: POLYETHYLENE GLYCOL 3350 17 GM/Dose PACKET PEG SCH ×2 (10:52→17:36)
[2018-04-04] MEDS: Collagenase 250 Units/gm Ointment(30 gm) TOP SCH (10:53)
[2018-04-04] MEDS: Mupirocin 2% Ointment 15 GM TUBE TOP SCH ×2 (10:53→17:36)
--- NOTE | 2018-04-04 12:16 | CP.PCM.PN ---
Subjective - Date & Time of Evaluation Date of Evaluation: 04/04/18 Time of Evaluation: 09:40 - Subjective Subjective: Comfortable in bed, no fevers overnight. Objective - Vital Signs/Intake and Output Vital Signs (last 24 hours): Temp Pulse Resp BP Pulse Ox 97.6 F 109 H 18 99/61 L 100 04/04/18 06:00 04/04/18 06:00 04/04/18 06:00 04/04/18 06:00 04/04/18 00:01 Intake and Output: 04/04/18 04/04/18 06:59 18:59 Intake Total 747 Output Total 1950 Balance -1203 - Medications Medications: Current Medications Acetaminophen (Tylenol 325mg Tab) 650 mg PEG Q4H PRN PRN Reason: temp >99.5 Apixaban (Eliquis) 5 mg PEG Q12 [facility]; Protocol Last Admin: 04/03/18 22:30 Dose: 5 mg Arformoterol Tartrate (Brovana) 15 mcg IH [id number] [facility] Last Admin: 04/04/18 08:04 Dose: 15 mcg Arformoterol Tartrate (Brovana) 15 mcg IH [id number] [facility] Last Admin: 04/04/18 08:05 Dose: Not Given Budesonide (Pulmicort Respules) 0.5 mg IH [id number] [facility] Last Admin: 04/04/18 08:04 Dose: 0.5 mg Collagenase (Santyl) 1 gm TOP DAILY [facility] Last Admin: 04/03/18 13:47 Dose: 1 applic Diltiazem HCl (Cardizem) 60 mg PO QID [facility] Last Admin: 04/03/18 22:30 Dose: 60 mg Famotidine (Pepcid) 40 mg PEG HS [facility] Last Admin: 04/03/18 22:30 Dose: 40 mg Furosemide (Lasix) 20 mg PEG DAILY [facility] Last Admin: 04/03/18 10:27 Dose: 20 mg Meropenem (Merrem Iv 1 Gm Premix) 1 gm in 50 mls @ 100 mls/hr IVPB Q12 [facility]; P rotocol Stop: 04/10/18 11:16 Last Admin: 04/03/18 22:31 Dose: 100 mls/hr Vancomycin HCl (Vancomycin 750 Mg In Ns) 750 mg in 250 mls @ 167 mls/hr IVPB Q12H [facility]; Protocol Stop: 04/10/18 11:16 Last Admin: 04/03/18 22:31 Dose: 167 mls/hr Levetiracetam (Keppra) 500 mg PO Q12 [facility] Last Admin: 04/03/18 22:30 Dose: 500 mg Magnesium Oxide (Mag-Ox) 400 mg PEG BID [facility] Last Admin: 04/03/18 18:25 Dose: 400 mg Metoprolol Tartrate (Lopressor) 100 mg PEG Q12 [facility] Last Admin: 04/03/18 23:16 Dose: Not Given Mupirocin (Bactroban Ointment) 0 gm TOP BID [facility] Last Admin: 04/03/18 18:26 Dose: 1 applic Polyethylene Glycol (Miralax) 17 gm PEG BID [facility] Last Admin: 04/03/18 17:15 Dose: Not Given - Labs Labs: 04/04/18 06:30 04/02/18 07:55 PT 14.7 SECONDS (9.4-12.5) H 04/01/18 03:30 INR 1.28 04/01/18 03:30 APTT 30.3 Seconds (25.1-36.5) 04/01/18 03:30 - Constitutional Appears: No Acute Distress, Chronically Ill - Head Exam Head Exam: NORMAL INSPECTION - Respiratory Exam Respiratory Exam: Decreased Breath Sounds - Cardiovascular Exam Cardiovascular Exam: +S1, +S2 - GI/Abdominal Exam GI & Abdominal Exam: Soft. absent: Tenderness Assessment and Plan - Assessment and Plan (Free Text) Plan: Assessment sepsis due to right lower lobe HCAP with ESBL E. coli left hip wound infection HTN COPD atrial fibrillation throat cancer dementia history of CVA of left frontal lobe liver cirrhosis Plan continue Vancomycin and Merrem day 4 for at least 7 days and will continue to monitor clinically
[2018-04-04] MEDS: Vancomycin 750mg 750 MG/250 ML BAG IVPB SCH ×2 (14:30→22:26)
[2018-04-04] MEDS: Potassium Chloride 20 mEq ER Tab PO SCH (14:31)
[2018-04-04 17:38] LABS: FOLATE 14.7 ng/mL
--- NOTE | 2018-04-05 02:52 | PN ---
DATE: 04/04/2018 PULMONARY PROGRESS NOTE REFERRING PHYSICIAN: Mariana Fernandez MD SUBJECTIVE: He is lying in the bed and nursing staff is at bedside changing decubiti ulcer dressing, seen by dietitian today. Recommended to increase G-tube feeding can from 3-4. No cough. No sputum production. No vomiting. No hematuria. No diarrhea. No leg swelling. OBJECTIVE: GENERAL: In no acute distress. VITAL SIGNS: Temperature is 98, heart rate 84, respiratory rate is 20, blood pressure 89/62, pulse ox 100% on nasal cannula. HEENT: Moist mucous membranes. No ulcer or thrush. NECK: Supple. No JVD. LUNGS: Have fair airflow with rhonchi. HEART: S1 and S2. ABDOMEN: Soft, nontender, nondistended. G-tube area looks okay. EXTREMITIES: Has some contractures, pressure ulcers, has a dressing. NEUROLOGIC: Awake, alert, not much verbal. MEDICATIONS: He is on Brovana inhaled twice a day, Diltiazem 60 mg four times a day, Duragesic patch to every 72 hour our, Eliquis 5 mg twice a day, ferrous sulfate 300 mg twice a day, potassium 20 mEq daily, Keppra 500 mg twice a day, Lasix 20 mg daily, metoprolol tartrate 100 mg twice a day, Mag-oxide 400 mg twice a day, meropenem 1 g IV every 12 hour, MiraLax 17 g twice a day, Pepcid 40 mg at bedtime, Pulmicort inhaled twice a day, Tylenol p.r.n., vancomycin 750 mg twice a day. LABORATORY DATA: Shows hemoglobin 8.1, hematocrit 25.4, WBC 7.9, platelet is 361. Sodium 134, potassium 3.4, chloride 102, bicarbonate 28, BUN 18, creatinine 0.6, calcium 8.1, magnesium 1.8, TIBC 183, AST 53, ALT 44, alk phos is 90. Albumin is 2.4. Folate 14.7. TSH 4.9. Microbiology, blood culture, urine culture, there is no growth. IMPRESSION AND PLAN: CVA, history of head and neck cancer requiring resection, decubiti ulcers, status post debridement, history of rectal bleed, gastroparesis, gastritis, constipation, atrial fibrillation, resolving pneumonia, status post respiratory failure. Spoke to nursing staff. We will get wound care nurse to follow the patient. Aspiration precaution. Continue bronchodilator, antibiotics as per Infectious Disease. Gastric prophylaxis. On anticoagulation. Pressure ulcer precaution. Thank you and we will follow with you. Fatoumata Cruz MD
--- NOTE | 2018-04-05 03:39 | PN ---
DATE: 04/04/2018 SUBJECTIVE: Patient is a 72-year-old male. Patient was seen and examined at the bedside on 04/04/2018. Looking comfortable. No nausea, vomiting, or diarrhea. No hematuria or hematochezia. No swelling of legs. No chest pain, no palpitation. No headache, no dizziness. PHYSICAL EXAMINATION: VITAL SIGNS: Temperature 97.6, pulse 109, respirations 18, blood pressure 99/61, pulse oximetry 100. HEENT: Head normocephalic, atraumatic. Eyes, PERRLA. Extraocular muscles intact. Conjunctivae clear. Nose patent. Mucous membranes moist. NECK: Supple. No carotid bruit. No JVD, no thyromegaly. CHEST: Bilaterally symmetrical. HEART: S1 and S2 positive. LUNGS: Clear to auscultation. ABDOMEN: Soft. Bowel sounds present. No organomegaly. EXTREMITIES: No edema. No cyanosis. Has multiple decubitus ulcer. NEUROLOGIC: The patient is awake and alert. Follow simple commands. MEDICATIONS: Eliquis, Brovana, Pulmicort, Cardizem, Pepcid, Lasix, Merrem, vancomycin, Keppra, Mag, Lopressor, and MiraLax. LABORATORY DATA: White blood cells 7.9, hemoglobin 8.1, hematocrit 25.4, platelet count 361. Sodium 135, potassium 3.6, BUN 23, creatinine 0.7, glucose 109. ASSESSMENT AND PLAN: Mr. Geo Ewing, 72-year-old male with anemia, renal insufficiency, came with sepsis due to right lower lobe healthcare-associated pneumonia, with extended spectrum beta lactamase Escherichia coli left hip wound infection, hypertension, chronic obstructive pulmonary disease, atrial fibrillation, throat cancer, dementia, history of cerebrovascular accident of left frontal lobe, liver cirrhosis. Continue vancomycin and Merrem. Today is day #4 of day #7. We will continue monitor clinically. Getting wound treatment by wound team. Gastrointestinal, deep vein thrombosis prophylaxis. Repeat labs. We will follow up. Mariana Fernandez MD
[2018-04-05] MEDS: Budesonide 0.5 mg/2 ml Inhal Susp UD IH SCH ×2 (08:06→20:27)
[2018-04-05] MEDS: Arformoterol 15 mcg/2 ml Inh Sol IH SCH ×3 (08:06→20:28)
[2018-04-05 08:35] LABS: ALB/GLOB RATIO 0.7 (1.1-1.8); ALBUMIN 2.6 g/dL (3.0-4.8); ALT/SGPT 44 U/L (7-56); AST/SGOT 52 U/L (17-59); BLOOD UREA NITROGEN 16 mg/dL (7-21); CALCIUM 8.4 mg/dL (8.4-10.5); GFR NON-AFRICAN AMERICAN > 60
[2018-04-05] MEDS: Meropenem IV 1 gm in NS 1 GM/50 ML BAG IVPB SCH ×2 (10:45→21:14)
[2018-04-05] MEDS: Potassium Chloride 20 mEq ER Tab PO SCH (10:45)
[2018-04-05] MEDS: Magnesium Oxide 400 mg Tab UD PEG SCH ×2 (10:46→17:24)
[2018-04-05] MEDS: Ferrous Sulfate 300 mg/5 mL Liq UD PO SCH ×2 (10:46→19:13)
[2018-04-05] MEDS: POLYETHYLENE GLYCOL 3350 17 GM/Dose PACKET PEG SCH ×2 (10:57→17:24)
[2018-04-05] MEDS: Vancomycin 750mg 750 MG/250 ML BAG IVPB SCH (10:58)
[2018-04-05] MEDS: Mupirocin 2% Ointment 15 GM TUBE TOP SCH ×2 (11:04→19:09)
[2018-04-05] MEDS: Collagenase 250 Units/gm Ointment(30 gm) TOP SCH (11:04)
--- NOTE | 2018-04-05 11:56 | CP.PCM.PN ---
Subjective - Date & Time of Evaluation Date of Evaluation: 04/05/18 Time of Evaluation: 09:45 - Subjective Subjective: Comfortable in bed, afebrile, not in distress. Objective - Vital Signs/Intake and Output Vital Signs (last 24 hours): Temp Pulse Resp BP Pulse Ox 97.6 F 110 H 18 122/63 100 04/04/18 06:00 04/04/18 10:50 04/04/18 06:00 04/04/18 10:50 04/04/18 00:01 Intake and Output: 04/04/18 04/04/18 06:59 18:59 Intake Total 747 Output Total 1950 Balance -1203 - Medications Medications: Current Medications Acetaminophen (Tylenol 325mg Tab) 650 mg PEG Q4H PRN PRN Reason: temp >99.5 Apixaban (Eliquis) 5 mg PEG Q12 [facility]; Protocol Last Admin: 04/04/18 10:51 Dose: 5 mg Arformoterol Tartrate (Brovana) 15 mcg IH [id number] [facility] Last Admin: 04/04/18 08:04 Dose: 15 mcg Arformoterol Tartrate (Brovana) 15 mcg IH [id number] [facility] Last Admin: 04/04/18 08:05 Dose: Not Given Budesonide (Pulmicort Respules) 0.5 mg IH [id number] [facility] Last Admin: 04/04/18 08:04 Dose: 0.5 mg Collagenase (Santyl) 1 gm TOP DAILY [facility] Last Admin: 04/04/18 10:53 Dose: 1 applic Diltiazem HCl (Cardizem) 60 mg PO QID [facility] Last Admin: 04/04/18 10:48 Dose: 60 mg Famotidine (Pepcid) 40 mg PEG HS [facility] Last Admin: 04/03/18 22:30 Dose: 40 mg Ferrous Sulfate (Feosol Liq) 300 mg PO BID [facility] Last Admin: 04/04/18 10:48 Dose: 300 mg Furosemide (Lasix) 20 mg PEG DAILY [facility] Last Admin: 04/04/18 10:50 Dose: 20 mg Meropenem (Merrem Iv 1 Gm Premix) 1 gm in 50 mls @ 100 mls/hr IVPB Q12 [facility]; Protocol Stop: 04/10/18 11:16 Last Admin: 04/04/18 10:51 Dose: 100 mls/hr Vancomycin HCl (Vancomycin 750 Mg In Ns) 750 mg in 250 mls @ 167 mls/hr IVPB Q12H [facility]; Protocol Stop: 04/10/18 11:16 Last Admin: 04/03/18 22:31 Dose: 167 mls/hr Levetiracetam (Keppra) 500 mg PO Q12 [facility] Last Admin: 04/04/18 10:51 Dose: 500 mg Magnesium Oxide (Mag-Ox) 400 mg PEG BID [facility] Last Admin: 04/04/18 10:51 Dose: 400 mg Metoprolol Tartrate (Lopressor) 100 mg PEG Q12 [facility] Last Admin: 04/04/18 10:50 Dose: 100 mg Mupirocin (Bactroban Ointment) 0 gm TOP BID [facility] Last Admin: 04/04/18 10:53 Dose: 1 applic Polyethylene Glycol (Miralax) 17 gm PEG BID [facility] Last Admin: 04/04/18 10:52 Dose: Not Given Potassium Chloride (K-Dur 20 Meq Er Tab) 20 meq PO BRK [facility] - Labs Labs: 04/04/18 09:00 04/04/18 06:00 PT 14.7 SECONDS (9.4-12.5) H 04/01/18 03:30 INR 1.28 04/01/18 03:30 APTT 30.3 Seconds (25.1-36.5) 04/01/18 03:30 - Constitutional Appears: No Acute Distress, Chronically Ill - Head Exam Head Exam: NORMAL INSPECTION - Respiratory Exam Respiratory Exam: Decreased Breath Sounds - Cardiovascular Exam Cardiovascular Exam: +S1, +S2 - GI/Abdominal Exam GI & Abdominal Exam: Soft. absent: Tenderness Assessment and Plan - Assessment and Plan (Free Text) Plan: Assessment sepsis due to right lower lobe HCAP with ESBL E. coli left hip wound infection HTN COPD atrial fibrillation throat cancer dementia history of CVA of left frontal lobe liver cirrhosis Plan continue Vancomycin and Merrem day 5 for at least 7 days and will continue to monitor clinically
--- NOTE | 2018-04-05 22:32 | PN ---
DATE: 04/05/2018 PULMONARY PROGRESS NOTE REFERRING PHYSICIAN: Mariana Fernandez MD. SUBJECTIVE: He is lying in the bed, head at 45 degrees. Night was unremarkable. No headache. No rhinitis. No chest pain. No nausea. Has a decubiti ulcer. No leg swelling. PHYSICAL EXAMINATION: GENERAL: In no acute distress. VITAL SIGNS: Temperature is 99, heart rate is 74, respiratory rate is 20, blood pressure 100/62, pulse ox is 95% on 2 liters nasal cannula. HEENT: Moist mucous membranes. Crowded airway. NECK: Supple. No JVD. LUNGS: Have fair airflow with rhonchi. HEART: S1, S2. ABDOMEN: Soft, nontender. No organomegaly. G-tube area looks okay. EXTREMITIES: Have some contracture of lower extremities, has pressure ulcers. NEUROLOGIC: Awake, alert, not much verbal. MEDICATIONS: He is on Bactroban ointment to affected area twice a day, Brovana inhaled twice a day, Cardizem 60 mg four times a day, fentanyl one patch every 72 hours, Eliquis 5 mg every 12 hours, ferrous sulfate 300 mg twice a day, potassium 20 mEq daily, Keppra 500 mg twice a day, Lasix 20 mg daily, metoprolol tartrate 100 mg twice a day, mag oxide 400 mg twice a day, meropenem 1 g IV every 12 hours, MiraLax 17 g twice a day, Pepcid 40 mg daily, Pulmicort inhaled twice a day, Santyl to affected area, Tylenol p.r.n., and vancomycin 750 mg every 12 hours. LABORATORY DATA: Reviewed and noted. Sodium 133, potassium 3.6, chloride 100, bicarbonate 30, BUN 16, creatinine 0.6, glucose 100. TIBC 183, ferritin is 295. AST 52, AST 44, alk phos is 122. Albumin is 2.6. Microbiology, hip wound has gram-negative and gram-positive organism. IMPRESSION AND PLAN: Cerebrovascular accident; history of head and neck cancer, requiring resection; decubiti ulcers, status post debridement; history of rectal bleed; gastroparesis; gastritis; constipation; atrial fibrillation; resolving pneumonia, status post respiratory failure. Pulmonary point view, doing well. Keep head at 45 degrees. High risk for aspiration. Gastric prophylaxis, anticoagulation. Pressure ulcer precaution. We will discontinue Cardizem apparently today, both Cardizem and beta-yessenia have been on hold because of low blood pressure. We will follow hemodynamically closely. Thank you and we will follow with you. Fatoumata Cruz MD
--- NOTE | 2018-04-06 01:48 | PN ---
DATE: 04/05/2018 SUBJECTIVE: The patient is 72-year-old male. The patient was seen and examined at the bedside on 04/05/2018, looking comfortable, getting wound care. No fever. No chills. No hematuria, hematochezia. No swelling of the legs. No chest pain. No palpitations. PHYSICAL EXAMINATION: VITAL SIGNS: Temperature 99, heart rate 74, respiratory rate 20, blood pressure 120/80 . HEENT: Head is normocephalic, atraumatic. Eyes PERRLA. Extraocular muscles are intact. Conjunctivae clear. Nose patent. Mucous membranes moist. NECK: Supple. No carotid bruits. No JVD or thyromegaly. LUNGS: Has fair airflow with rhonchi. HEART: S1, S2 positive. ABDOMEN: Soft, nontender. No organomegaly. Has G-tube area looking okay. EXTREMITIES: Has contracture of the lower extremities and multiple decubitus ulcers. NEUROLOGIC: The patient is awake, alert. Not verbal. MEDICATIONS: Bactroban, Brovana, Cardizem, fentanyl patch, Eliquis, ferrous sulfate, potassium, Keppra, Lasix, metoprolol, magnesium oxide, meropenem, MiraLax, Pepcid, Pulmicort, Tylenol, vancomycin. ASSESSMENT AND PLAN: Mr. Kaylin Guardado is a 72-year-old male with multiple medical problems, had multiple decubitus ulcers and sepsis, brought multiple times for debridement. Cerebrovascular accident, history of head and neck cancer,requiring resection, decubitus ulcer, gastroparesis, gastritis, constipation, atrial fibrillation, pneumonia, history of respiratory failure. The patient high risk of aspiration, having percutaneous endoscopic gastrostomy tube still clear food. The patient is still having low blood pressure. Continue Cardizem today by the corn lab technician that beta-yessenia holding because of low blood pressure. Finish Mender is on the case. Appreciated Dr. Cruz and Dr. Huynh. Mariana Fernandez MD [facility]
[2018-04-06] MEDS: Vancomycin 750mg 750 MG/250 ML BAG IVPB SCH ×2 (02:04→10:30)
[2018-04-06] MEDS: Budesonide 0.5 mg/2 ml Inhal Susp UD IH SCH ×2 (08:23→21:43)
[2018-04-06] MEDS: Arformoterol 15 mcg/2 ml Inh Sol IH SCH ×4 (08:23→21:44)
[2018-04-06] MEDS: Potassium Chloride 20 mEq ER Tab PO SCH (09:00)
[2018-04-06] MEDS: Meropenem IV 1 gm in NS 1 GM/50 ML BAG IVPB SCH ×2 (10:00→21:06)
[2018-04-06] MEDS: Mupirocin 2% Ointment 15 GM TUBE TOP SCH ×2 (10:00→18:36)
[2018-04-06] MEDS: Ferrous Sulfate 300 mg/5 mL Liq UD PO SCH ×2 (10:00→18:45)
[2018-04-06] MEDS: POLYETHYLENE GLYCOL 3350 17 GM/Dose PACKET PEG SCH ×2 (11:00→18:46)
[2018-04-06] MEDS: Magnesium Oxide 400 mg Tab UD PEG SCH ×2 (11:00→18:45)
[2018-04-06] MEDS: Collagenase 250 Units/gm Ointment(30 gm) TOP SCH (12:40)
--- NOTE | 2018-04-06 14:23 | CP.PCM.PN ---
Subjective - Date & Time of Evaluation Date of Evaluation: 04/06/18 Time of Evaluation: 09:50 - Subjective Subjective: No fevers, not in distress. Objective - Vital Signs/Intake and Output Vital Signs (last 24 hours): Temp Pulse Resp BP Pulse Ox 98.5 F 109 H 20 116/65 95 04/05/18 06:00 04/05/18 10:55 04/05/18 06:00 04/05/18 10:55 04/05/18 00:01 Intake and Output: 04/05/18 04/05/18 06:59 18:59 Intake Total 587 Output Total 800 Balance -213 - Medications Medications: Current Medications Acetaminophen (Tylenol 325mg Tab) 650 mg PEG Q4H PRN PRN Reason: temp >99.5 Apixaban (Eliquis) 5 mg PEG Q12 [facility]; Protocol Last Admin: 04/05/18 10:56 Dose: 5 mg Arformoterol Tartrate (Brovana) 15 mcg IH [id number] [facility] Last Admin: 04/04/18 20:10 Dose: Not Given Budesonide (Pulmicort Respules) 0.5 mg IH [id number] [facility] Last Admin: 04/05/18 08:06 Dose: 0.5 mg Collagenase (Santyl) 1 gm TOP DAILY [facility] Last Admin: 04/05/18 11:04 Dose: 1 applic Diltiazem HCl (Cardizem) 60 mg PO QID [facility] Last Admin: 04/05/18 10:55 Dose: 60 mg Famotidine (Pepcid) 40 mg PEG HS [facility] Last Admin: 04/04/18 22:00 Dose: 40 mg Fentanyl (Duragesic) 1 patch TD Q72H [facility] Last Admin: 04/04/18 14:27 Dose: 1 patch Ferrous Sulfate (Feosol Liq) 300 mg PO BID [facility] Last Admin: 04/05/18 10:46 Dose: 300 mg Furosemide (Lasix) 20 mg PEG DAILY [facility] Last Admin: 04/05/18 10:46 Dose: 20 mg Meropenem (Merrem Iv 1 Gm Premix) 1 gm in 50 mls @ 100 mls/hr IVPB Q12 [facility]; Protocol Stop: 04/10/18 11:16 Last Admin: 04/05/18 10:45 Dose: 100 mls/hr Vancomycin HCl (Vancomycin 750 Mg In Ns) 750 mg in 250 mls @ 167 mls/hr IVPB Q12H [facility]; Protocol Stop: 04/10/18 11:16 Last Admin: 04/05/18 10:58 Dose: 167 mls/hr Levetiracetam (Keppra) 500 mg PO Q12 [facility] Last Admin: 04/05/18 10:45 Dose: 500 mg Magnesium Oxide (Mag-Ox) 400 mg PEG BID [facility] Last Admin: 04/05/18 10:46 Dose: 400 mg Metoprolol Tartrate (Lopressor) 100 mg PEG Q12 [facility] Last Admin: 04/04/18 22:34 Dose: Not Given Mupirocin (Bactroban Ointment) 0 gm TOP BID [facility] Last Admin: 04/05/18 11:04 Dose: 1 applic Polyethylene Glycol (Miralax) 17 gm PEG BID [facility] Last Admin: 04/05/18 10:57 Dose: 17 gm Potassium Chloride (K-Dur 20 Meq Er Tab) 20 meq PO BRK [facility] Last Admin: 04/05/18 10:45 Dose: 20 meq - Labs Labs: 04/04/18 09:00 04/05/18 08:00 PT 14.7 SECONDS (9.4-12.5) H 04/01/18 03:30 INR 1.28 04/01/18 03:30 APTT 30.3 Seconds (25.1-36.5) 04/01/18 03:30 - Constitutional Appears: Chronically Ill - Head Exam Head Exam: NORMAL INSPECTION - Respiratory Exam Respiratory Exam: Decreased Breath Sounds - Cardiovascular Exam Cardiovascular Exam: +S1, +S2 - GI/Abdominal Exam GI & Abdominal Exam: Soft. absent: Tenderness Assessment and Plan - Assessment and Plan (Free Text) Plan: Assessment sepsis due to right lower lobe HCAP with ESBL E. coli left hip wound infection HTN COPD atrial fibrillation throat cancer dementia history of CVA of left frontal lobe liver cirrhosis Plan continue Vancomycin and Merrem day 6 for at least 7 days and will continue to monitor clinically
[2018-04-06] MEDS: Vancomycin 1gm in NS 250ml 1 GM/250 ML BAG IVPB SCH (14:30)
--- NOTE | 2018-04-06 21:20 | PN ---
DATE: 04/06/2018 PULMONARY PROGRESS NOTE REFERRING PHYSICIAN: Dr. Fernandez SUBJECTIVE: The patient is lying in the bed, head 45 degrees. Night was unremarkable. No cough. No sputum production. No chest pain. No hematuria. No diarrhea. Has pressure ulcers. OBJECTIVE: GENERAL: In no acute distress. VITAL SIGNS: Temperature is 98, heart rate is 110, respiratory rate is 20, blood pressure 127/82, pulse ox 100% on nasal cannula. HEENT: Moist mucous membrane. No ulcer or thrush noted. NECK: Supple. No JVD. LUNGS: Have fair airflow, rhonchi. HEART: S1, S2. ABDOMEN: Soft, nontender. No organomegaly. G-tube area looks okay. EXTREMITIES: Have some contractures, pressure ulcers. NEUROLOGICAL: Awake, alert. MEDICATIONS: He is on Brovana inhaled twice a day, fentanyl one patch every 72 hours, Eliquis 5 mg twice a day, ferrous sulfate 300 mg twice a day, potassium 20 mEq daily, Keppra 500 mg twice a day, Lasix 20 mg daily, metoprolol tartrate 100 mg twice a day, mag oxide 400 mg twice a day, meropenem 1 g IV every 12 hours, MiraLax 17 g twice a day, Pepcid 40 mg daily, budesonide inhaled twice a day, Santyl to affected area, Tylenol p.r.n., vancomycin 1 g every 12 hours. LABORATORY DATA: Reviewed. No new lab is available since yesterday. Hip wound has Pseudomonas and Enterococcus faecalis. IMPRESSION AND PLAN: Cerebrovascular accident; history of head and neck cancer, requiring resection; decubiti ulcer, requiring debridement, presently infected, been on broad-spectrum antibiotics; history of gastroparesis, gastritis, constipation; atrial fibrillation status post pneumonia; high risk for aspiration. Continue bronchodilator. Keep head at 45 degrees. Gastric prophylaxis, anticoagulation, antibiotics as per Infectious Disease, pressure ulcer precaution. Thank you and we will follow with you. Fatoumata Cruz MD
--- NOTE | 2018-04-07 01:45 | PN ---
DATE: 04/06/2018 SUBJECTIVE: The patient is 72-year-old male. Patient was seen and examined at the bedside on 04/06/2018, looking comfortable. No change in the status. Wound care team is taking care of the wounds. Getting IV antibiotics. No fever. No chills. No hematuria. No hematochezia. PHYSICAL EXAMINATION VITAL SIGNS: Temperature 98.5, pulse 109, respiratory rate 20, blood pressure 115/65, pulse oximetry 95. HEENT: Head is normocephalic, atraumatic. Eyes PERRLA. Extraocular muscles are intact. Conjunctivae clear. Nose patent. NECK: Supple. No carotid bruits. No JVD, thyromegaly. CHEST: Bilateral symmetrical. HEART: S1, S2 positive. LUNGS: Clear to auscultation. ABDOMEN: Soft. Bowel sounds present. No organomegaly. EXTREMITIES: No edema. No cyanosis. NEUROLOGIC: The patient is awake, alert, moving all four extremities without focal deficits. MEDICATIONS: Eliquis, Brovana, Pulmicort, fentanyl, Cardizem, Pepcid, Duragesic, iron, Lasix, Merrem, vancomycin, Keppra, magnesium oxide, Lopressor, MiraLax, K-dur. LABORATORY DATA: Hemoglobin 9.4, hematocrit 29.4, platelets 133,000. cr 3.6, BUN 15, creatinine 0.3, glucose 100. ASSESSMENT AND PLAN: Mr. Kaylin Guardado is a 72-year-old male with anemia, sepsis due to right lower lobe healthcare-associated pneumonia with extended-spectrum beta-lactamases, Escherichia coli, left hip wound infection, hypertension, hypercholesterolemia, chronic obstructive pulmonary disease, atrial fibrillation, history of throat cancer, dysphagia, has PEG tube with dementia, history of cerebrovascular accident with left frontal lobe liver cirrhosis. Plan is continue vancomycin, at least 7 days and will continue monitoring clinically. Bedside physical therapy. Gastrointestinal and deep venous thrombosis prophylaxis. Repeat labs. Will follow up. Mariana Fernandez MD [facility]
[2018-04-07] MEDS: Vancomycin 1gm in NS 250ml 1 GM/250 ML BAG IVPB SCH ×2 (02:05→16:00)
[2018-04-07 08:34] LABS: HEMOGLOBIN 9.2 g/dL (14.0-18.0); MEAN CELL VOLUME 79.9 fl (80.0-105.0); MEAN CORPUSCULAR HEMOGLOBIN 25.3 pg (25.0-35.0); MEAN CORPUSCULAR HGB CONC 31.6 g/dl (31.0-37.0); MEAN PLATELET VOLUME 8.2 fl (7.0-11.0); RBC 3.64 10^6/uL (3.5-6.1); RED CELL DISTRIBUTION WIDTH 16.2 % (11.5-14.5); WHITE BLOOD COUNT 8.5 10^3/uL (4.5-11.0)
[2018-04-07 08:54] LABS: BLOOD UREA NITROGEN 23 mg/dL (7-21); CALCIUM 8.5 mg/dL (8.4-10.5); GFR NON-AFRICAN AMERICAN > 60
[2018-04-07] MEDS: Arformoterol 15 mcg/2 ml Inh Sol IH SCH ×3 (09:17→22:05)
[2018-04-07] MEDS: Budesonide 0.5 mg/2 ml Inhal Susp UD IH SCH ×2 (09:18→22:05)
[2018-04-07] MEDS: Mupirocin 2% Ointment 15 GM TUBE TOP SCH ×2 (10:54→20:11)
[2018-04-07] MEDS: Magnesium Oxide 400 mg Tab UD PEG SCH ×2 (10:55→18:45)
[2018-04-07] MEDS: Ferrous Sulfate 300 mg/5 mL Liq UD PO SCH ×2 (10:55→18:45)
[2018-04-07] MEDS: Potassium Chloride 20 mEq ER Tab PO SCH (10:55)
[2018-04-07] MEDS: Collagenase 250 Units/gm Ointment(30 gm) TOP SCH (10:56)
[2018-04-07] MEDS: Meropenem IV 1 gm in NS 1 GM/50 ML BAG IVPB SCH ×2 (10:56→21:42)
[2018-04-07] MEDS: POLYETHYLENE GLYCOL 3350 17 GM/Dose PACKET PEG SCH ×2 (10:56→18:45)
--- NOTE | 2018-04-07 12:06 | CP.PCM.PN ---
Subjective - Date & Time of Evaluation Date of Evaluation: 04/07/18 Time of Evaluation: 10:35 - Subjective Subjective: Comfortable, no fevers. Objective - Vital Signs/Intake and Output Vital Signs (last 24 hours): Temp Pulse Resp BP Pulse Ox 97.7 F 110 H 20 122/70 100 04/06/18 11:30 04/06/18 11:30 04/06/18 11:30 04/06/18 11:30 04/06/18 05:53 Intake and Output: 04/06/18 04/06/18 06:59 18:59 Intake Total 650 Output Total 550 Balance 100 - Medications Medications: Current Medications Acetaminophen (Tylenol 325mg Tab) 650 mg PEG Q4H PRN PRN Reason: temp >99.5 Apixaban (Eliquis) 5 mg PEG Q12 [facility]; Protocol Last Admin: 04/06/18 10:00 Dose: 5 mg Arformoterol Tartrate (Brovana) 15 mcg IH [id number] [facility] Last Admin: 04/06/18 08:23 Dose: 15 mcg Budesonide (Pulmicort Respules) 0.5 mg IH [id number] [facility] Last Admin: 04/06/18 08:23 Dose: 0.5 mg Collagenase (Santyl) 1 gm TOP DAILY [facility] Last Admin: 04/06/18 12:40 Dose: 1 applic Famotidine (Pepcid) 40 mg PEG HS [facility] Last Admin: 04/05/18 21:14 Dose: 40 mg Fentanyl (Duragesic) 1 patch TD Q72H [facility] Last Admin: 04/04/18 14:27 Dose: 1 patch Ferrous Sulfate (Feosol Liq) 300 mg PO BID [facility] Last Admin: 04/05/18 19:13 Dose: 300 mg Furosemide (Lasix) 20 mg PEG DAILY [facility] Last Admin: 04/06/18 10:00 Dose: 20 mg Levetiracetam (Keppra) 500 mg PO Q12 [facility] Last Admin: 04/06/18 11:00 Dose: 500 mg Magnesium Oxide (Mag-Ox) 400 mg PEG BID [facility] Last Admin: 04/06/18 11:00 Dose: 400 mg Metoprolol Tartrate (Lopressor) 100 mg PEG Q12 [facility] Last Admin: 04/06/18 11:00 Dose: 100 mg Mupirocin (Bactroban Ointment) 0 gm TOP BID [facility] Last Admin: 04/05/18 19:09 Dose: 1 applic Polyethylene Glycol (Miralax) 17 gm PEG BID [facility] Last Admin: 04/06/18 11:00 Dose: 17 gm Potassium Chloride (K-Dur 20 Meq Er Tab) 20 meq PO BRK [facility] Last Admin: 04/06/18 09:00 Dose: 20 meq - Labs Labs: 04/04/18 09:00 04/05/18 08:00 PT 14.7 SECONDS (9.4-12.5) H 04/01/18 03:30 INR 1.28 04/01/18 03:30 APTT 30.3 Seconds (25.1-36.5) 04/01/18 03:30 - Constitutional Appears: Chronically Ill - Head Exam Head Exam: NORMAL INSPECTION - Respiratory Exam Respiratory Exam: Decreased Breath Sounds - Cardiovascular Exam Cardiovascular Exam: +S1, +S2 - GI/Abdominal Exam GI & Abdominal Exam: Soft. absent: Tenderness Assessment and Plan - Assessment and Plan (Free Text) Plan: Assessment sepsis due to right lower lobe HCAP with ESBL E. coli left hip wound infection HTN COPD atrial fibrillation throat cancer dementia history of CVA of left frontal lobe liver cirrhosis Plan continue Vancomycin and Merrem day 7 for at least 7 days and will continue to monitor clinically
--- NOTE | 2018-04-08 01:43 | PN ---
DATE: 04/07/2018 SUBJECTIVE: He is lying in the bed, head 45 degrees. Night was unremarkable. No headache, no rhinitis, tachycardic, no nausea, no vomiting. Has pressure ulcers. OBJECTIVE: GENERAL: In no acute distress. VITAL SIGNS: Temperature is 98, heart rate 111, respiratory rate is 18, blood pressure 116/69, pulse ox 99% on 2 L nasal cannula. HEENT: Moist mucous membranes. Crowded airway. NECK: Supple, no JVD. LUNGS: Have a fair airflow with few rhonchi. HEART: S1 and S2, tachycardic. ABDOMEN: Soft, nontender, nondistended. G-tube area looks okay. EXTREMITIES: There is no edema, has pressure ulcers on the hip and sacral area. NEUROLOGIC: Awake, alert, follows simple commands. Right eye has hemorrhagic conjunctiva. MEDICATIONS: He is on bacitracin ointment to the affected area twice a day, Brovana inhaled twice a day, Duragesic patch every 72 hours, Eliquis 5 mg twice a day, ferrous sulfate 300 mg twice a day, potassium 20 mEq daily, Keppra 500 mg twice a day, Lasix 20 mg daily, metoprolol tartrate 100 mg twice a day, mag oxide 400 mg twice a day, meropenem 1 g IV every 12 hours, MiraLax 17 g p.o. twice a day, Pepcid 40 mg daily, Pulmicort inhaler twice a day, Santyl to affected area, Tylenol p.r.n. basis, vancomycin 1 g IV every 12 hours. LABORATORY DATA: Shows wound culture has Pseudomonas and Enterococcus faecalis. IMPRESSION AND PLAN: CVA; history of head and neck cancer, requiring resection; decubiti ulcers, requiring debridement, which is infected, on antibiotics; history of gastritis; constipation; atrial fibrillation; status post pneumonia. Pulmonary point view, doing well. Keep head at 45 degrees. Aspiration precaution, bronchodilator, anticoagulation. Gastric prophylaxis, pressure ulcer precaution. Spoke to nursing staff because he has a new finding, which is right conjunctival hemorrhage. Needs close followup. Thank you, and we will follow with you. Mohammad Anthony, MD [facility] # [id number]
[2018-04-08] MEDS: Vancomycin 1gm in NS 250ml 1 GM/250 ML BAG IVPB SCH ×2 (01:54→14:35)
--- NOTE | 2018-04-08 05:21 | PN ---
DATE: 04/07/2018 SUBJECTIVE: The patient is a 72-year-old male. The patient was seen and examined at the bedside on 04/07/2018, getting the wound care and comfortable. No fever, no chills. No nausea, vomiting, diarrhea. No hematuria, no hematochezia. The patient is a very poor historian. PHYSICAL EXAMINATION: VITAL SIGNS: Temperature is 97.7, pulse is 110, respiratory rate 20, blood pressure 120/70, pulse oximetry 100%. HEENT: Head normocephalic, atraumatic. Eyes PERRLA. Extraocular muscles intact. Conjunctivae clear. Nose patent. NECK: Supple. No carotid bruit. No JVD or thyromegaly. CHEST: Bilaterally symmetrical. HEART: S1, S2 positive. LUNGS: Clear to auscultation. ABDOMEN: Soft. Bowel sounds are present. No organomegaly. EXTREMITIES: No edema, no cyanosis. BACK: Multiple bilateral decubitus ulcers. LABORATORY DATA: We don't have recent laboratories, but reviewed old labs. Hemoglobin 9.4, hematocrit 29.4. Sodium 133, potassium 3.9, BUN 15, creatinine 0.6. MEDICATIONS: Eliquis, Brovana, Pulmicort, Santyl, Pepcid, Duragesic, iron, Lasix, Keppra, magnesium oxide, Lopressor. ASSESSMENT AND PLAN: Mr. Kaylin Guardado is a 72-year-old male with anemia, sepsis due to right lower lobe HCAP with ESBL E. coli left hip wound infection, hypertension, COPD, atrial fibrillation, throat cancer, dementia, history of CVA of left frontal lobe, liver cirrhosis, multiple sacral and lower extremity decubitus ulcers at different stages of healing, getting vancomycin and Merrem, day 7 of the 7 days. We will continue monitoring clinically. We will repeat lab. Bedside physical therapy. We will follow up. Mariana Fernandez MD
[2018-04-08] MEDS: Budesonide 0.5 mg/2 ml Inhal Susp UD IH SCH ×2 (07:41→21:08)
[2018-04-08] MEDS: Arformoterol 15 mcg/2 ml Inh Sol IH SCH ×2 (07:42→21:07)
[2018-04-08 08:10] LABS: HEMOGLOBIN 10.1 g/dL (14.0-18.0); MEAN CORPUSCULAR HEMOGLOBIN 25.2 pg (25.0-35.0); MEAN CORPUSCULAR HGB CONC 31.5 g/dl (31.0-37.0); MEAN PLATELET VOLUME 8.3 fl (7.0-11.0); RBC 4.01 10^6/uL (3.5-6.1); RED CELL DISTRIBUTION WIDTH 16.1 % (11.5-14.5); WHITE BLOOD COUNT 8.1 10^3/uL (4.5-11.0)
[2018-04-08] MEDS ORDERED: levETIRAcetam 500 mg/5ml UD cups PO SCH (10:00)
[2018-04-08] MEDS: Potassium Chloride 20 mEq ER Tab PO SCH (10:29)
[2018-04-08] MEDS: Ferrous Sulfate 300 mg/5 mL Liq UD PEG SCH ×2 (10:41→17:55)
[2018-04-08] MEDS: Magnesium Oxide 400 mg Tab UD PEG SCH ×2 (10:41→17:55)
[2018-04-08] MEDS: Meropenem IV 1 gm in NS 1 GM/50 ML BAG IVPB SCH ×2 (10:42→22:08)
[2018-04-08] MEDS: POLYETHYLENE GLYCOL 3350 17 GM/Dose PACKET PEG SCH (10:42)
[2018-04-08] MEDS: Potassium Chloride 20 mEq/15 ml LIQ UD PO SCH (10:47)
--- NOTE | 2018-04-08 11:06 | CP.PCM.PN ---
Subjective - Date & Time of Evaluation Date of Evaluation: 04/08/18 Time of Evaluation: 10:30 - Subjective Subjective: No fevers, not in distress. Objective - Vital Signs/Intake and Output Vital Signs (last 24 hours): Temp Pulse Resp BP Pulse Ox 99.2 F 106 H 18 113/74 99 04/07/18 06:00 04/07/18 10:54 04/07/18 06:00 04/07/18 10:56 04/07/18 06:00 Intake and Output: 04/07/18 04/07/18 06:59 18:59 Intake Total 0 Output Total 1000 Balance -1000 - Medications Medications: Current Medications Acetaminophen (Tylenol 325mg Tab) 650 mg PEG Q4H PRN PRN Reason: temp >99.5 Apixaban (Eliquis) 5 mg PEG Q12 [facility]; Protocol Last Admin: 04/07/18 10:57 Dose: 5 mg Arformoterol Tartrate (Brovana) 15 mcg IH [id number] [facility] Last Admin: 04/07/18 09:18 Dose: 15 mcg Budesonide (Pulmicort Respules) 0.5 mg IH [id number] [facility] Last Admin: 04/07/18 09:18 Dose: 0.5 mg Collagenase (Santyl) 1 gm TOP DAILY [facility] Last Admin: 04/07/18 10:56 Dose: 1 applic Famotidine (Pepcid) 40 mg PEG HS [facility] Last Admin: 04/06/18 21:06 Dose: 40 mg Fentanyl (Duragesic) 1 patch TD Q72H [facility] Last Admin: 04/04/18 14:27 Dose: 1 patch Ferrous Sulfate (Feosol Liq) 300 mg PO BID [facility] Last Admin: 04/07/18 10:55 Dose: 300 mg Furosemide (Lasix) 20 mg PEG DAILY [facility] Last Admin: 04/07/18 10:56 Dose: 20 mg Meropenem (Merrem Iv 1 Gm Premix) 1 gm in 50 mls @ 100 mls/hr IVPB Q12 [facility]; Protocol Last Admin: 04/07/18 10:56 Dose: 100 mls/hr Vancomycin HCl (Vancomycin 1gm) 1 gm in 250 mls @ 167 mls/hr IVPB Q12H [facility]; Protocol Last Admin: 04/07/18 02:05 Dose: 167 mls/hr Levetiracetam (Keppra) 500 mg PO Q12 [facility] Last Admin: 04/07/18 10:55 Dose: 500 mg Magnesium Oxide (Mag-Ox) 400 mg PEG BID [facility] Last Admin: 04/07/18 10:55 Dose: 400 mg Metoprolol Tartrate (Lopressor) 100 mg PEG Q12 [facility] Last Admin: 04/07/18 10:54 Dose: 100 mg Mupirocin (Bactroban Ointment) 0 gm TOP BID [facility] Last Admin: 04/07/18 10:54 Dose: 1 applic Polyethylene Glycol (Miralax) 17 gm PEG BID [facility] Last Admin: 04/07/18 10:56 Dose: 17 gm Potassium Chloride (K-Dur 20 Meq Er Tab) 20 meq PO BRK [facility] Last Admin: 04/07/18 10:55 Dose: 20 meq - Labs Labs: 04/07/18 08:15 04/07/18 08:15 PT 14.7 SECONDS (9.4-12.5) H 04/01/18 03:30 INR 1.28 04/01/18 03:30 APTT 30.3 Seconds (25.1-36.5) 04/01/18 03:30 - Constitutional Appears: Chronically Ill - Head Exam Head Exam: NORMAL INSPECTION - Respiratory Exam Respiratory Exam: Decreased Breath Sounds - Cardiovascular Exam Cardiovascular Exam: +S1, +S2 - GI/Abdominal Exam GI & Abdominal Exam: Soft. absent: Tenderness Assessment and Plan - Assessment and Plan (Free Text) Plan: Assessment sepsis due to right lower lobe HCAP with ESBL E. coli left hip wound infection, clinically improving HTN COPD atrial fibrillation throat cancer dementia history of CVA of left frontal lobe liver cirrhosis Plan continue Vancomycin and Merrem day 8 for 7-10 days and will continue to monitor clinically
[2018-04-08] MEDS: Mupirocin 2% Ointment 15 GM TUBE TOP SCH ×2 (11:08→17:55)
[2018-04-08] MEDS: Collagenase 250 Units/gm Ointment(30 gm) TOP SCH (11:08)
[2018-04-08] MEDS: Ciprofloxacin 0.3% OPTH SOLN OD SCH (17:55)
[2018-04-08] MEDS: levETIRAcetam 500 mg/5ml UD cups PEG SCH (22:05)
--- NOTE | 2018-04-08 22:10 | PN ---
DATE: 04/08/2018 PULMONARY PROGRESS NOTE REFERRING PHYSICIAN: Mariana Fernandez MD SUBJECTIVE: The patient is lying in the bed, head at 45 degrees. Night was unremarkable. No cough, no sputum production. No nausea, no vomiting, no diarrhea. Has multiple pressure ulcers, lower extremity some contractures. Right conjunctiva injected. OBJECTIVE: GENERAL: No acute distress. VITAL SIGNS: Temp is 99, heart rate is 111, respiratory rate is 18, blood pressure 110/78, pulse ox 96% on BiPAP this morning. HEENT: Moist mucous membranes. Crowded airway. NECK: Supple. No JVD. LUNGS: Has a fair airflow with few rhonchi. HEART: S1 and S2. ABDOMEN: Soft, nontender. G-tube looks okay. EXTREMITIES: There is no edema, has multiple pressure ulcers. NEUROLOGICAL: Awake and alert. MEDICATIONS: He is on Bactroban ointment to affected area twice a day, Brovana inhaled twice a day, started on Cipro ophthalmic solution 2 drops in the right eye 3 times a day, Eliquis 5 mg twice a day, ferrous sulfate 300 mg twice a day, Keppra 500 mg twice a day, Lasix 20 mg daily, metoprolol tartrate 100 mg twice a day, magnesium oxide 400 mg twice a day, meropenem 1 g IV every 12 hours, Pepcid 40 mg at bedtime, getting potassium chloride 20 mEq daily, Pulmicort inhaled twice a day, Santyl 1 g topically, Tylenol p.r.n. basis, and vancomycin 1 g IV every 12 hours. LABORATORY DATA: Shows hemoglobin 10.1, hematocrit 32.1, WBC 8.1, and platelet count is 453,000. IMPRESSION AND PLAN: History of cerebrovascular accident, head and neck cancer requiring surgery, decubiti ulcers requiring debridement, history of gastritis, constipation, atrial fibrillation, status post pneumonia. Pulmonary point of view, doing okay. Keep head at 45 degrees. Bronchodilator, gastric prophylaxis, pressure ulcer precaution. We will discontinue BiPAP at nighttime. Pulmonary status is much better. Thank you, and we will follow with you. Fatoumata Cruz MD [facility] # [id number]
[2018-04-09] MEDS: Vancomycin 1gm in NS 250ml 1 GM/250 ML BAG IVPB SCH (02:08)
[2018-04-09 06:44] VITALS: O2SAT 93
[2018-04-09 07:13] LABS: HEMOGLOBIN 9.3 g/dL (14.0-18.0); MEAN CELL VOLUME 79.4 fl (80.0-105.0); MEAN CORPUSCULAR HEMOGLOBIN 24.9 pg (25.0-35.0); MEAN CORPUSCULAR HGB CONC 31.3 g/dl (31.0-37.0); MEAN PLATELET VOLUME 8.3 fl (7.0-11.0); RBC 3.74 10^6/uL (3.5-6.1); RED CELL DISTRIBUTION WIDTH 16.3 % (11.5-14.5); WHITE BLOOD COUNT 9.8 10^3/uL (4.5-11.0)
[2018-04-09 07:30] LABS: BLOOD UREA NITROGEN 23 mg/dL (7-21); CALCIUM 8.5 mg/dL (8.4-10.5); GFR NON-AFRICAN AMERICAN > 60
--- NOTE | 2018-04-09 08:25 | PN ---
DATE: 04/08/2018 SUBJECTIVE: The patient is a 72-year-old male. The patient was seen and examined on the bedside on 04/08/2018. Right conjunctiva was pink and congested. No fever, no chills. No headache or dizziness. No chest pain or palpitation. No hematuria. No hematochezia. PHYSICAL EXAMINATION VITAL SIGNS: Temperature is 99.2, pulse 106, respiratory rate 18, blood pressure 113/74, pulse oximetry 99. HEENT: Head normocephalic, atraumatic. Eyes PERRLA. Extraocular muscles intact. Conjunctivae clear. Nose patent. Mucous membranes moist. NECK: Supple. No carotid bruits. No JVD or thyromegaly. CHEST: Bilaterally symmetrical. HEART: S1, S2 positive. LUNGS: Clear to auscultation. ABDOMEN: Soft. Bowel sounds positive. No organomegaly. EXTREMITIES: No edema, no cyanosis, but has multiple decubitus ulcer. MEDICATIONS: Eliquis, Brovana, Pulmicort, Santyl, Pepcid, Duragesic, Lasix, Keppra, magnesium oxide, Lopressor and MiraLax. LABORATORY DATA: White blood cells 8.5, hemoglobin 9.2, hematocrit 29.1, and platelets 409. Sodium 134, potassium 4.3, BUN 23, creatinine 0.6, glucose 107. ASSESSMENT AND PLAN: Mr. Geo Ewing is a 72-year-old male with renal insufficiency, anemia, has sepsis due to right lower lobe healthcare-associated pneumonia with extended spectrum beta lactamase Escherichia coli, left hip wound infection, clinically improved, hypertension, chronic obstructive pulmonary disease, atrial fibrillation, throat cancer, dementia, history of cerebrovascular accident of left frontal lobe, liver cirrhosis. Continue vancomycin and Merrem, day 8 of 7 to 10 days. We will continue monitoring. Air mattress. Change patient's position more often. Wound care. We will follow up. Mariana Fernandez MD
[2018-04-09] MEDS: Arformoterol 15 mcg/2 ml Inh Sol IH SCH (08:41)
[2018-04-09] MEDS: Budesonide 0.5 mg/2 ml Inhal Susp UD IH SCH (08:41)
[2018-04-09] MEDS: Magnesium Oxide 400 mg Tab UD PEG SCH ×2 (10:22→17:50)
[2018-04-09] MEDS: levETIRAcetam 500 mg/5ml UD cups PEG SCH (10:23)
[2018-04-09] MEDS: Potassium Chloride 20 mEq/15 ml LIQ UD PO SCH (10:23)
[2018-04-09] MEDS: Ferrous Sulfate 300 mg/5 mL Liq UD PEG SCH ×2 (10:23→17:48)
[2018-04-09] MEDS: Collagenase 250 Units/gm Ointment(30 gm) TOP SCH (10:28)
[2018-04-09] MEDS: Ciprofloxacin 0.3% OPTH SOLN OD SCH ×3 (10:28→18:00)
--- NOTE | 2018-04-09 12:39 | CP.PCM.PN ---
Subjective - Date & Time of Evaluation Date of Evaluation: 04/09/18 Time of Evaluation: 09:40 - Subjective Subjective: No fevers, not in distress. Objective - Vital Signs/Intake and Output Vital Signs (last 24 hours): Temp Pulse Resp BP Pulse Ox 98 F 111 H 18 115/88 96 04/08/18 06:00 04/08/18 10:41 04/08/18 06:00 04/08/18 10:41 04/08/18 00:01 Intake and Output: 04/08/18 04/08/18 06:59 18:59 Intake Total 350 Output Total 1999 Balance -1650 - Medications Medications: Current Medications Acetaminophen (Tylenol 325mg Tab) 650 mg PEG Q4H PRN PRN Reason: temp >99.5 Apixaban (Eliquis) 5 mg PEG Q12 [facility]; Protocol Last Admin: 04/08/18 10:41 Dose: 5 mg Arformoterol Tartrate (Brovana) 15 mcg IH [id number] HEIDE Last Admin: 04/08/18 07:42 Dose: 15 mcg Budesonide (Pulmicort Respules) 0.5 mg IH [id number] [facility] Last Admin: 04/08/18 07:41 Dose: 0.5 mg Collagenase (Santyl) 1 gm TOP DAILY [facility] Last Admin: 04/07/18 10:56 Dose: 1 applic Famotidine (Pepcid) 40 mg PEG HS [facility] Last Admin: 04/07/18 21:43 Dose: 40 mg Fentanyl (Duragesic) 1 patch TD Q72H [facility] Last Admin: 04/07/18 18:40 Dose: 1 patch Ferrous Sulfate (Feosol Liq) 300 mg PEG BID [facility] Last Admin: 04/08/18 10:41 Dose: 300 mg Furosemide (Lasix) 20 mg PEG DAILY [facility] Last Admin: 04/07/18 10:56 Dose: 20 mg Meropenem (Merrem Iv 1 Gm Premix) 1 gm in 50 mls @ 100 mls/hr IVPB Q12 [facility]; Protocol Last Admin: 04/08/18 10:42 Dose: 100 mls/hr Vancomycin HCl (Vancomycin 1gm) 1 gm in 250 mls @ 167 mls/hr IVPB Q12H [facility]; Protocol Last Admin: 04/08/18 01:54 Dose: 167 mls/hr Levetiracetam (Keppra) 500 mg PEG Q12 [facility] Magnesium Oxide (Mag-Ox) 400 mg PEG BID [facility] Last Admin: 04/08/18 10:41 Dose: 400 mg Metoprolol Tartrate (Lopressor) 100 mg PEG Q12 [facility] Last Admin: 04/08/18 10:41 Dose: 100 mg Mupirocin (Bactroban Ointment) 0 gm TOP BID [facility] Last Admin: 04/07/18 20:11 Dose: 1 applic Polyethylene Glycol (Miralax) 17 gm PEG BID [facility] Last Admin: 04/08/18 10:42 Dose: 17 gm Potassium Chloride (Potassium Chloride Oral Soln) 20 meq PO BRK [facility] Last Admin: 04/08/18 10:47 Dose: 20 meq - Labs Labs: 04/08/18 07:30 04/07/18 08:15 PT 14.7 SECONDS (9.4-12.5) H 04/01/18 03:30 INR 1.28 04/01/18 03:30 APTT 30.3 Seconds (25.1-36.5) 04/01/18 03:30 - Constitutional Appears: Chronically Ill - Head Exam Head Exam: NORMAL INSPECTION - Respiratory Exam Respiratory Exam: Decreased Breath Sounds - Cardiovascular Exam Cardiovascular Exam: +S1, +S2 - GI/Abdominal Exam GI & Abdominal Exam: Soft. absent: Tenderness Assessment and Plan - Assessment and Plan (Free Text) Plan: Assessment sepsis due to right lower lobe HCAP with ESBL E. coli left hip wound infection, clinically improved HTN COPD atrial fibrillation throat cancer dementia history of CVA of left frontal lobe liver cirrhosis Plan completed 8 days of Vancomycin and Merrem and we can d/c antibiotics and monitor clinically
[2018-04-09 12:51] VITALS: BP 97/55; PULSE 100; RESP 16; TEMP 97.3
[2018-04-09] MEDS: Mupirocin 2% Ointment 15 GM TUBE TOP SCH (14:55)
--- NOTE | 2018-04-09 21:23 | PN ---
DATE: 04/09/2018 PULMONARY PROGRESS NOTE REFERRING PHYSICIAN: Mariana Fernandez MD SUBJECTIVE: He is lying in the bed. Night was unremarkable. Comfortable. No cough. No sputum production. No vomiting. No hematuria. No diarrhea. Has a pressure ulcer. Some contractures. PHYSICAL EXAMINATION: GENERAL: In no acute distress. VITAL SIGNS: Temperature is 98, heart rate is , respiratory rate is 16, blood pressure 97/55, and pulse ox 93% on nasal cannula. HEENT: Moist mucous membranes. No ulcer or thrush noted. NECK: Supple. No JVD. LUNGS: Has a fair airflow with rhonchi. HEART: S1 and S2. ABDOMEN: Soft, nontender, and nondistended. G-tube area looks okay. EXTREMITIES: There is no edema. Multiple pressure ulcers. NEUROLOGIC: Awake and alert. MEDICATIONS: Reviewed and noted. No new change in medication reported since yesterday. LABORATORY DATA: Shows hemoglobin is 9.3, hematocrit is 29.7, WBC is 9.8, platelet count is 439,000. Sodium is 131, potassium is 4.5, chloride is 99, bicarbonate is 28, BUN is 23, creatinine is 0.7, glucose is 108, and calcium is 8.5. IMPRESSION AND PLAN: Chronic obstructive lung disease. Admitted with pneumonia. History of head and neck cancer, requiring resection. Multiple decubiti ulcers. Constipation. Atrial fibrillation. Pulmonary point of view, doing okay. Spoke to nursing staff, keep head at 45 degrees. Bronchodilator. Aspiration precaution. Gastric prophylaxis. Deep venous thrombosis prophylaxis. Pressure ulcer precaution. Thank you and we will follow with you. Fatoumata Cruz MD
== END 2018-04-09 18:22 | disposition home or self-care (01) | DRG 871 ==
LOC: ED 02:16 → ERH 05:02 → 2RSO 06:15
PROVIDERS: ADMIT Internal Medicine; ATTEND Internal Medicine
PROC: 5A09357 Assistance with Respiratory Ventilation, Less than 24 Consecutive Hours, Continuous Positive Airway Pressure (ICD-10-PCS; principal; 2018-04-01)
DX: A41.9 Sepsis, unspecified organism (principal); J18.1 Lobar pneumonia, unspecified organism; J44.0 Chronic obstructive pulmonary disease with (acute) lower respiratory infection; I48.92 Unspecified atrial flutter; I50.9 Heart failure, unspecified; K74.60 Unspecified cirrhosis of liver; I48.91 Unspecified atrial fibrillation; I11.0 Hypertensive heart disease with heart failure; F03.90 Unspecified dementia, unspecified severity, without behavioral disturbance, psychotic disturbance, mood disturbance, and anxiety; L89.222 Pressure ulcer of left hip, stage 2; L89.212 Pressure ulcer of right hip, stage 2; L89.152 Pressure ulcer of sacral region, stage 2; L89.892 Pressure ulcer of other site, stage 2; H11.31 Conjunctival hemorrhage, right eye; K31.84 Gastroparesis; B95.2 Enterococcus as the cause of diseases classified elsewhere; B96.5 Pseudomonas (aeruginosa) (mallei) (pseudomallei) as the cause of diseases classified elsewhere; Z95.0 Presence of cardiac pacemaker; Z85.819 Personal history of malignant neoplasm of unspecified site of lip, oral cavity, and pharynx; Z87.891 Personal history of nicotine dependence; Z74.01 Bed confinement status

== ENCOUNTER 2018-04-13 09:56 | Inpatient (IN) | payer MEDICARE, OTHER ==
--- NOTE | 2018-04-13 10:25 | ED PDOC ---
Arrival/HPI - General Chief Complaint: Altered Mental Status Time Seen by Provider: 04/13/18 10:11 Historian: Family, EMS EM Caveat: Dementia, Uncooperative - History of Present Illness Narrative History of Present Illness (Text): 04/13/18 11:33 72 year old male, with past medical history of A-fib on Eliquis, hypertension, COPD, throat cancer, cirrhosis, dementia, TIA, and CVA (01/2017) with right side d hemiparesis, presents to the Emergency department via EMS for reported visual hallucinations since today, per daughter. Patient is a poor historian. No physical complaints, pt states he "feels alright". Pt discharged from hospital on 04/01/18 after evaluation and treatment of Pneumonia. Patient denies any fever, cough, chest pain, shortness of breath or abdominal pain. HPI limited secondary to patient's limited response. Past Medical History - Provider Review Nursing Documentation Reviewed: Yes - Infectious Disease Hx of Infectious Diseases: None - Cardiac Hx Cardiac Disorders: Yes (A fib) Hx Hypertension: Yes - Pulmonary Hx Chronic Obstructive Pulmonary Disease (COPD): Yes - Neurological HX Cerebrovascular Accident: Yes - HEENT Hx HEENT Disorder: No - Renal Hx Renal Disorder: No - Endocrine/Metabolic Hx Endocrine Disorders: No - Hematological/Oncological Hx Blood Transfusions: No Hx Blood Transfusion Reaction: No - Integumentary Other/Comment: multiple ble skin discolorations - Musculoskeletal/Rheumatological Hx Musculoskeletal Disorders: Yes - Gastrointestinal Hx Gastrointestinal Disorders: Yes (L INGUINAL HERNIA) Hx Liver Failure: Yes (cirrhosis) - Genitourinary/Gynecological Hx Incontinence: Yes - Psychiatric Hx Emotional Abuse: No Hx Physical Abuse: No Hx Substance Use: No - Surgical History Hx Orthopedic Surgery: Yes - Anesthesia Hx Anesthesia: Yes Hx Anesthesia Reactions: No Hx Malignant Hyperthermia: No - Suicidal Assessment Feels Threatened In Home Enviroment: No Family/Social History - Physician Review Nursing Documentation Reviewed: Yes Family/Social History: No Known Family HX Smoking Status: Unknown If Ever Smoked Hx Alcohol Use: No Hx Substance Use: No Allergies/Home Meds Allergies/Adverse Reactions: Allergies No Known Allergies Allergy (Verified 04/01/18 02:35) Review of Systems - Physician Review All systems were reviewed & negative as marked: Yes - Review of Systems Systems not reviewed;Unavailable: Dementia Eyes: absent: Vision Changes Respiratory: absent: SOB, Cough Cardiovascular: absent: Chest Pain, Palpitations Gastrointestinal: absent: Abdominal Pain, Nausea Musculoskeletal: absent: Arthralgias Neurological: absent: Headache, Dizziness Physical Exam Vital Signs Reviewed: Yes Vital Signs Temp Pulse Resp BP Pulse Ox 04/13/18 10:10 98.3 F 109 H 18 114/72 100 Temperature: Afebrile Blood Pressure: Normal Pulse: Tachycardic Respiratory Rate: Normal Appearance: Positive for: Non-Toxic, Ill-Appearing (chronically ill) Pain Distress: None Mental Status: No: Alert and Oriented X 3 (Pt knows his name and that he is in the hospital. Unable to give day, month, year, or age.) - Systems Exam Head: Present: Atraumatic, Normocephalic Pupils: Present: PERRL Extroacular Muscles: Present: EOMI Conjunctiva: Present: Normal Ears: Present: Normal Mouth: Present: Moist Mucous Membranes Neck: Present: Normal Range of Motion Respiratory/Chest: Present: Clear to Auscultation, Good Air Exchange. No: Respiratory Distress, Accessory Muscle Use, Wheezes, Decreased Breath Sounds, Rales, Rhonchi Cardiovascular: Present: Regular Rate and Rhythm, Normal S1, S2, Peripheal Pulses Present. No: Murmurs Abdomen: Present: Normal Bowel Sounds, Feeding Tubes (in place). No: Tenderness, Distention, Peritoneal Signs, Rebound, Guarding Back: No: Midline Tenderness, Paraspinal Tenderness Upper Extremity: Present: NORMAL PULSES, Neurovascularly Intact, Capillary Refill < 2s, Other (contractures per baseline; decubitus ulcers). No: Cyanosis, Edema, Tenderness, Swelling, Erythema, Temperature Abnormalties Lower Extremity: Present: Normal Inspection, NORMAL PULSES, Neurovascularly Intact, Capillary Refill < 2 s, Other (contractures per baseline; decubitus ulcers). No: Edema, Tenderness, Swelling, Erythema, Temperature Abnormalties Neurological: Present: GCS=15, Normal Sensory Function. No: Gait Normal (bed bound) Skin: Present: Warm, Dry, Other (Decubitus ulcer on right shoulder, right and left hip, sacrum. Malodorous. No signs of surrounding cellulitis. ). No: Ra shes, Diaphoretic, Erythematous, Induration, Hot, Abscess Lymphatic: No: Cervical Adenopathy Psychiatric: Present: Alert Medical Decision Making ED Course and Treatment: Initial Plan: * EKG * CXR * Head CT * CBC, CMP, Coags * Troponin * UA, culture * IVF EKG: rate 109; atrial flutter; normal QT; questionable ST segment changes in V2, V3, no ST elevations Reviewed prior visits, patient regularly tachycardic CXR: No active disease Head CT: no change from previous studies, no acute intracranial abnormality CBC: hgb 9.5, hct 30.5 per baseline; otherwise wnl CMP: BUN 34, Creat 0.8 increased from baseline Troponin: negative UA: blood, protein 11:00 On re-evaluation, patient resting comfortably in stretcher. Exam remains unchanged. 12:[address] Curry, who accepted patient for inpatient observation med-surg for altered mental status, dehydration. - RAD Interpretation Radiology Orders: 04/13/18 10:16 CXR [CHEST PORTABLE] [RAD] Stat Disposition/Present on Arrival - Present on Arrival Any Indicators Present on Arrival: No History of DVT/PE: No History of Uncontrolled Diabetes: No Urinary Catheter: No History of Decub. Ulcer: Yes History Surgical Site Infection Following: None - Disposition Have Diagnosis and Disposition been Completed?: Yes Diagnosis: Altered mental status, Dehydration Disposition: HOSPITALIZED Disposition Time: 12:00 Patient Plan: Observation Condition: STABLE
--- NOTE | 2018-04-13 10:49 | RAD ---
Date of service: 04/13/2018 HISTORY: AMS COMPARISON: 04/02/2018 FINDINGS: LUNGS: No active pulmonary disease. PLEURA: No significant pleural effusion identified, no pneumothorax apparent. CARDIOVASCULAR: No aortic atherosclerotic calcification present. Mild cardiomegaly no pulmonary vascular congestion. OSSEOUS STRUCTURES: No significant abnormalities. VISUALIZED UPPER ABDOMEN: Normal. OTHER FINDINGS: Single lead pacemaker IMPRESSION: No active disease.
[2018-04-13 11:08] LABS: BASO # 0.02 K/mm3 (0.0-2.0); BASO % 0.2 % (0.0-3.0); EOS # 0.1 (0.0-0.7); EOS % 0.7 % (1.5-5.0); GRAN # 8.34 (1.4-6.5); GRAN % 82.4 % (50.0-68.0); HEMOGLOBIN 9.5 g/dL (14.0-18.0); LYMPH # 1.2 (1.2-3.4); LYMPH % 11.4 % (22.0-35.0); MEAN CELL VOLUME 80.5 fl (80.0-105.0); MEAN CORPUSCULAR HEMOGLOBIN 25.1 pg (25.0-35.0); MEAN CORPUSCULAR HGB CONC 31.1 g/dl (31.0-37.0); MEAN PLATELET VOLUME 8.6 fl (7.0-11.0); MONO # 0.5 (0.1-0.6); MONO % 5.3 % (1.0-6.0); RBC 3.79 10^6/uL (3.5-6.1); RED CELL DISTRIBUTION WIDTH 16.3 % (11.5-14.5); WHITE BLOOD COUNT 10.1 10^3/uL (4.5-11.0)
[2018-04-13 11:11] LABS: PH,URINE 8.5 (4.7-8.0); URINE BILIRUBIN NEGATIVE (NEGATIVE); URINE BLOOD SMALL (NEGATIVE); URINE GLUCOSE (UA) NEGATIVE (NEGATIVE); URINE LEUKOCYTE ESTERASE NEGATIVE Leu/uL (NEGATIVE); URINE PROTEIN 30 mg/dL (<30 mg/dL); URINE UROBILINOGEN 0.2 E.U./dL (<1 E.U./dL)
[2018-04-13 11:12] LABS: INR 1.42; PARTIAL THROMBOPLASTIN TIME 28.7 Seconds (25.1-36.5); PROTHROMBIN TIME 16.5 SECONDS (9.4-12.5)
[2018-04-13 11:14] LABS: URINE APPEARANCE CLEAR (CLEAR); URINE COLOR YELLOW (YELLOW)
[2018-04-13] MEDS ORDERED: Sodium Chloride 0.9% 1,000 ML IV STA (11:16)
[2018-04-13 11:18] LABS: URINE BACTERIA SMALL (NEG); URINE RBC 15 - 20 /hpf (0-2)
[2018-04-13 11:19] LABS: URINE CALCIUM OXALATE CRYSTALS MOD /hpf
[2018-04-13 11:44] LABS: ALB/GLOB RATIO 0.7 (1.1-1.8); ALBUMIN 3.2 g/dL (3.0-4.8); ALT/SGPT 41 U/L (7-56); AST/SGOT 67 U/L (17-59); BLOOD UREA NITROGEN 34 mg/dL (7-21); CALCIUM 8.8 mg/dL (8.4-10.5); GFR NON-AFRICAN AMERICAN > 60
--- NOTE | 2018-04-13 11:59 | CT ---
Date of service: 04/13/2018 PROCEDURE: CT HEAD WITHOUT CONTRAST. HISTORY: headache COMPARISON: 03/14/2018 TECHNIQUE: Axial computed tomography images were obtained through the head/brain without intravenous contrast. Radiation dose: Total exam DLP = 940.53 mGy-cm. This CT exam was performed using one or more of the following dose reduction techniques: Automated exposure control, adjustment of the mA and/or kV according to patient size, and/or use of iterative reconstruction technique. FINDINGS: HEMORRHAGE: No intracranial hemorrhage. BRAIN: No mass effect or edema. Extensive stable bilateral cerebral atrophy with areas of focal severe atrophy particularly in the right frontal lobe. VENTRICLES: Unremarkable. No hydrocephalus. CALVARIUM: Unremarkable. PARANASAL SINUSES: Unremarkable as visualized. No significant inflammatory changes. MASTOID AIR CELLS: Unremarkable as visualized. No inflammatory changes. OTHER FINDINGS: None. IMPRESSION: No change. No acute hemorrhage.
[2018-04-13 13:47] LABS: TROPONIN I 0.02 ng/mL
--- NOTE | 2018-04-13 19:48 | CARD ---
APPROVED REPORT Date of service: 04/13/2018 EKG Measurement Heart [id number] AL 60P [id number] <Conclusion> Atrial flutter with 2:[address] changes Abnormal ECG
[2018-04-14] MEDS ORDERED: Silver Sulfadiazine 1% Cream (25 gm) TP SCH (10:00)
[2018-04-14] MEDS: levETIRAcetam 500 mg/5ml UD cups PEG SCH ×2 (11:01→22:02)
[2018-04-14] MEDS: Magnesium Oxide 400 mg Tab UD PEG SCH ×2 (11:02→17:57)
[2018-04-14] MEDS: POLYETHYLENE GLYCOL 3350 17 GM/Dose PACKET PEG SCH ×2 (11:02→17:57)
[2018-04-14] MEDS: Collagenase 250 Units/gm Ointment(30 gm) TOP SCH (11:03)
[2018-04-14] MEDS ORDERED: Morphine 2 mg/ml ISec IVP PRN (11:46)
--- NOTE | 2018-04-14 14:52 | CP.PCM.CON ---
<Josr Pablo - Last Filed: 04/14/18 14:55> History of Present Illness - History of Present Illness History of Present Illness: 72M with past medical history of throat CA, A-fib on Eliquis, HTN , COPD,cirrhosis, dementia, TIA, and CVA with right sided hemiparesis, contracture, recently admitted for Pneumonia and AMS. Currently patient [place] [facility] [place] with AMS currently AAOx2 to person and place. General surgery was consulted for wound care. Of note patient was Patient is s/p left hip ulcer debridement on 03/28. PMH: as stated above PSH: right inguinal herniorrhaphy, left hip ulcer debridement, PEG All: NKDA POA: Eladia Villalta (POA) [phone] Review of Systems - Review of Systems All systems: reviewed and no additional remarkable complaints except - Constitutional Constitutional: As Per HPI Past Patient History - Infectious Disease Hx of Infectious Diseases: None - Past Medical History & Family History Past Medical History?: Yes - Past Social History Smoking Status: Unknown If Ever Smoked - CARDIAC Hx Cardiac Disorders: Yes (A fib) Hx Hypertension: Yes - PULMONARY Hx Chronic Obstructive Pulmonary Disease (COPD): Yes - NEUROLOGICAL HX Cerebrovascular Accident: Yes - HEENT Hx HEENT Problems: No - RENAL Hx Chronic Kidney Disease: No - ENDOCRINE/METABOLIC Hx Endocrine Disorders: No - HEMATOLOGICAL/ONCOLOGICAL Hx Blood Transfusions: No Hx Blood Transfusion Reaction: No - INTEGUMENTARY Other/Comment: multiple ble skin discolorations - MUSCULOSKELETAL/RHEUMATOLOGICAL Hx Musculoskeletal Disorders: Yes - GASTROINTESTINAL Hx Gastrointestinal Disorders: Yes (L INGUINAL HERNIA) Hx Liver Failure: Yes (cirrhosis) - GENITOURINARY/GYNECOLOGICAL Hx Incontinence: Yes - PSYCHIATRIC Hx Emotional Abuse: No Hx Physical Abuse: No Hx Substance Use: No - SURGICAL HISTORY Hx Orthopedic Surgery: Yes - ANESTHESIA Hx Anesthesia: Yes Hx Anesthesia Reactions: No Hx Malignant Hyperthermia: No Meds Allergies/Adverse Reactions: Allergies Allergy/AdvReac Type Severity Reaction Status Date / Time No Known Allergies Allergy Verified 04/01/18 02:35 - Medications Medications: Current Medications Apixaban (Eliquis) 5 mg PEG BID [facility]; Protocol Last Admin: 04/14/18 11:01 Dose: 5 mg Collagenase (Santyl) 1 gm TOP DAILY [facility] Last Admin: 04/14/18 11:03 Dose: 1 applic Famotidine (Pepcid) 40 mg PEG HS [facility] Levetiracetam (Keppra) 500 mg PEG Q12 [facility] Last Admin: 04/14/18 11:01 Dose: 500 mg Magnesium Oxide (Mag-Ox) 400 mg PEG BID [facility] Last Admin: 04/14/18 11:02 Dose: 400 mg Metoprolol Tartrate (Lopressor) 100 mg PEG BID [facility] Last Admin: 04/14/18 11:02 Dose: 100 mg Morphine Sulfate (Morphine) 2 mg IVP Q4H PRN PRN Reason: Pain, severe (8-10) Polyethylene Glycol (Miralax) 17 gm PEG BID [facility] Last Admin: 04/14/18 11:02 Dose: 17 gm Silver Sulfadiazine (Silvadene 1% 25 Gm) 1 gm TP BID [facility] Physical Exam - Head Exam Head Exam: ATRAUMATIC - Eye Exam Eye Exam: EOMI - ENT Exam ENT Exam: Mucous Membranes Moist - Neck Exam Additional comments: Pacemaker in place. wound well healed. - Respiratory Exam Respiratory Exam: NORMAL BREATHING PATTERN. absent: Accessory Muscle Use, Respiratory Distress - Cardiovascular Exam Cardiovascular Exam: +S1, +S2 - GI/Abdominal Exam GI & Abdominal Exam: Soft. absent: Distended, Firm, Guarding, Hernia, Rebound, Rigid, Tenderness Additional comments: PEG tube in place - Extremities Exam Additional comments: Left hip unstagable pressure ulcer. w/ necrotic areas stage 2 sacral ulcer - Neurological Exam Neurological exam: Alert Additional comments: AAOx2 person place GCS 15 residual left sided hemiparesis - Psychiatric Exam Psychiatric exam: Normal Affect - Skin Skin Exam: Intact, Warm Results - Vital Signs Recent Vital Signs: Last Vital Signs Temp 98.4 F 04/14/18 07:00 Pulse 105 H 04/14/18 11:02 Resp 18 04/14/18 07:00 BP 107/63 04/14/18 07:00 Pulse Ox 98 04/14/18 07:00 - Labs Result Diagrams: 04/13/18 10:50 04/13/18 10:50 Assessment & Plan - Assessment and Plan (Free Text) Assessment: 72M admitted for dehydration and AMS, w/ multiple decubiti s/p left hip debridement on 03/28/18 Plan: Left hip ulcer likely not source of sepsis Santyl over left hip Local wound care w/ mupirocin to other areas. Apply Mupirocin to wound Medical management per primary Further recs per Dr. Geo Pablo PGY2 <Garcia Carson - Last Filed: 04/24/18 12:27> Meds - Medications Medications: Current Medications Acetaminophen (Tylenol 650mg/20.3ml Solution Ud) 650 mg PEG Q6H PRN PRN Reason: Pain, Mild (1-3) Last Admin: 04/22/18 18:04 Dose: 650 mg Apixaban (Eliquis) 5 mg PEG BID [facility]; Protocol Last Admin: 04/24/18 11:22 Dose: 5 mg Collagenase (Santyl) 1 gm TOP DAILY [facility] Last Admin: 04/24/18 11:14 Dose: 1 applic Famotidine (Pepcid) 40 mg PEG HS [facility] Last Admin: 04/23/18 22:30 Dose: 40 mg Ferrous Gluconate (Fergon) 324 mg PO TID [facility] Last Admin: 04/24/18 11:21 Dose: 324 mg Sodium Chloride (Sodium Chloride 0.9%) 1,000 mls @ 100 mls/hr IV .Q10H [facility] Last Admin: 04/23/18 03:50 Dose: 100 mls/hr Vancomycin HCl (Vancomycin 1gm) 1 gm in 250 mls @ 167 mls/hr IVPB DAILY [facility]; Protocol Stop: 04/28/18 10:01 Last Admin: 04/24/18 11:20 Dose: 167 mls/hr Meropenem (Merrem Iv 1 Gm Premix) 1 gm in 50 mls @ 100 mls/hr IVPB Q8 [facility]; Protocol Last Admin: 04/24/18 05:49 Dose: 100 mls/hr Levetiracetam (Keppra) 500 mg PEG Q12 [facility] Last Admin: 04/24/18 11:21 Dose: 500 mg Magnesium Oxide (Mag-Ox) 400 mg PEG BID [facility] Last Admin: 04/24/18 11:21 Dose: 400 mg Metoprolol Tartrate (Lopressor) 100 mg PEG BID [facility] Last Admin: 04/24/18 11:21 Dose: 100 mg Mupirocin (Bactroban Ointment) 1 gm TOP BID [facility] Last Admin: 04/24/18 11:13 Dose: 1 applic Polyethylene Glycol (Miralax) 17 gm PEG BID [facility] Last Admin: 04/24/18 11:21 Dose: 17 gm Silver Sulfadiazine (Silvadene 1% 25 Gm) 1 gm TP BID [facility] Last Admin: 04/24/18 11:15 Dose: 1 gm Results - Vital Signs Recent Vital Signs: Last Vital Signs Temp 99.5 F 04/24/18 07:00 Pulse 100 H 04/24/18 11:21 Resp 20 04/24/18 07:00 BP 137/83 04/24/18 11:21 Pulse Ox 94 L 04/24/18 07:00 - Labs Result Diagrams: 04/24/18 07:00 04/24/18 07:00 Labs: Laboratory Results - last 24 hr 04/24/18 04/24/18 07:00 07:00 WBC 10.7 D RBC 3.77 Hgb 9.3 L Hct 29.4 L MCV 78.0 L MCH 24.7 L MCHC 31.6 RDW 16.8 H Plt Count 507 H MPV 8.4 Sodium 132 Potassium 4.1 Chloride 101 Carbon Dioxide 26 Anion Gap 9 L BUN 20 Creatinine 0.6 L Est GFR ( Amer) > 60 Est GFR (Non-Af Amer) > 60 Random Glucose 107 Calcium 8.3 L Assessment & Plan - Assessment and Plan (Free Text) Plan: This consult done under my direct supervision Ngoc Carson MD FACS
[2018-04-14] MEDS: Mupirocin 2% Ointment 15 GM TUBE TOP SCH (17:56)
--- NOTE | 2018-04-15 00:52 | PN ---
DATE: 04/14/2018 SUBJECTIVE: The patient is 72-year-old male. The patient was seen and examined at the bedside on 04/14/2018, looking comfortable, awake, alert, but confused. No fever. No chills. No headache. No dizziness. PHYSICAL EXAMINATION VITAL SIGNS: Temperature 98.7, T-max 100.0, pulse 117, blood pressure 96/51, respiratory rate 18. HEENT: Head is normocephalic, atraumatic. Eyes PERRLA. Extraocular muscles are intact. Conjunctivae clear. Nose patent. Mucous membranes moist. NECK: Supple. No carotid bruits. No JVD, thyromegaly. CHEST: Bilateral symmetrical. HEART: S1, S2 positive. LUNGS: Clear to auscultation. ABDOMEN: Soft. Bowel sounds present. No organomegaly. EXTREMITIES: No edema. No cyanosis. NEUROLOGIC: The patient is awake, alert, but confused. LABORATORY DATA: White blood cell 10.1, hemoglobin 9.5, hematocrit 30.5, platelets 420,000. Sodium 135, potassium 4.8, BUN 34, creatinine 0.8, glucose 192. MEDICATIONS: Bacitracin, Eliquis, Keppra, Lopressor, magnesium oxide, MiraLax, morphine, Pepcid, Santyl, Silvadene, Tylenol. ASSESSMENT AND PLAN: Mr. Geo Ewing is a 72-year-old male with anemia, hyperchloremia, increased BUN, hyperglycemia, abnormal liver function test, hematuria, proteinuria, had multiple decubitus ulcers, came with altered mental status. CAT scan of the head is done. History of throat CA . The patient on Eliquis. Hypertension, chronic obstructive pulmonary disease, cirrhosis of the liver, dementia, transient ischemic attack, history of cerebrovascular accident with right sided hemiparesis, contracture, history of pneumonia, have multiple admissions, lives with daughter, Eladia PADILLA, now he is admitted with dehydration also. Multiple decubiti, last hip debridement on 03/28/2018. Left hip ulcer most likely looks as there was some sepsis. Santyl over left hip. Local wound care. Appreciated Dr. Guardado's input. GI, DVT prophylaxis. Repeat labs. We will follow. Mariana Fernandez MD [facility] # [id number] JAMES
[2018-04-15 08:01] LABS: BLOOD UREA NITROGEN 28 mg/dL (7-21); CALCIUM 8.8 mg/dL (8.4-10.5); GFR NON-AFRICAN AMERICAN > 60; HEMOGLOBIN 8.7 g/dL (14.0-18.0); MEAN CELL VOLUME 77.8 fl (80.0-105.0); MEAN CORPUSCULAR HEMOGLOBIN 24.7 pg (25.0-35.0); MEAN CORPUSCULAR HGB CONC 31.8 g/dl (31.0-37.0); MEAN PLATELET VOLUME 8.7 fl (7.0-11.0); RBC 3.52 10^6/uL (3.5-6.1); WHITE BLOOD COUNT 9.7 10^3/uL (4.5-11.0)
[2018-04-15] MEDS: levETIRAcetam 500 mg/5ml UD cups PEG SCH ×2 (10:37→22:03)
[2018-04-15] MEDS: Magnesium Oxide 400 mg Tab UD PEG SCH ×2 (10:37→18:00)
[2018-04-15] MEDS: POLYETHYLENE GLYCOL 3350 17 GM/Dose PACKET PEG SCH ×2 (10:37→18:00)
[2018-04-15] MEDS: Collagenase 250 Units/gm Ointment(30 gm) TOP SCH ×2 (10:39→10:40)
[2018-04-15] MEDS: Silver Sulfadiazine 1% Cream (25 gm) TP SCH (10:40)
[2018-04-15] MEDS: Mupirocin 2% Ointment 15 GM TUBE TOP SCH (10:41)
--- NOTE | 2018-04-15 21:37 | PN ---
DATE: 04/15/2018 SUBJECTIVE: The patient is a 72 years old male. The patient was seen and examined at the bedside on 04/15/2018. No changing of status. Looks comfortable. No nausea, vomiting, or diarrhea. No hematuria or hematochezia. No swelling of the legs, but has legs contracture and multiple decubitus ulcers. PHYSICAL EXAMINATION: VITAL SIGNS: Temperature 98.6, pulse 100, blood pressure 107/78,respiratory rate 20. HEENT: Head; normocephalic, atraumatic. Eyes; PERRLA. Extraocular muscles are intact. Conjunctivae clear. Nose patent. Mucous membranes moist. NECK: Supple. No carotid bruits. No JVD or thyromegaly. CHEST: Bilaterally symmetrical. HEART: S1 and S2 positive. LUNGS: Clear to auscultation. ABDOMEN: Soft. Bowel sounds positive. No organomegaly. EXTREMITIES: No edema, no cyanosis, but has multiple decubitus ulcers. LABORATORY DATA: White blood cells 9.7, hemoglobin 8.7, hematocrit 27.4, platelets 461,000. Sodium 130, potassium 4.5, BUN noted , creatinine 0.7, glucose 192. MEDICATIONS: Bactroban, Eliquis, Keppra, Lopressor, magnesium oxide, MiraLax, morphine, Pepcid, Santyl, and Tylenol. ASSESSMENT AND PLAN: Mr. Geo Ewing is a 72 years old male with anemia, hyponatremia, renal insufficiency, hyperglycemia, abnormal liver function test, proteinuria, hematuria, has multiple medical problems, came with altered mental status and visual hallucinations. CAT scan of the head is done, reviewed by me. The patient has a history of hematuria and proteinuria. is on Eliquis. Chronic obstructive pulmonary disease, cirrhosis of the liver, transient ischemic attack, history of cerebrovascular accident. We will continue present treatment, antibiotics, wound care. Gastrointestinal and deep venous thrombosis prophylaxis. Repeat labs. We will follow up. Mariana Fernandez MD [facility]TDD
[2018-04-16 06:50] VITALS: BMI 15.7
--- NOTE | 2018-04-16 07:45 | HP ---
DATE OF EXAM: 04/13/2018 The patient was seen and examined at the bedside on 04/13/2018. History and physical is for 04/13/2018. CHIEF COMPLAINT: Altered mental status. HISTORY OF PRESENT ILLNESS: Mr. Geo Ewing is a 72 years old male with past medical history of atrial fibrillation on Eliquis, hypertension, COPD, throat cancer, cirrhosis of the liver, dementia, TIA, CVA, right-sided hemiparesis, PEG tube dysphagia, came to the emergency room with the complaints of hallucinations, as per daughter, RANDY Montilla. The patient is a poor historian. The patient is alert, awake, but confused. Meanwhile, recently discharged from the hospital after evaluation and treatment of pneumonia. No fever. No chills. No cough. No shortness of breath. No hematuria, hematochezia. We admitted the patient. ID, neurology consult called. PAST MEDICAL HISTORY: Hypertension, COPD, CVA, inguinal hernia, cirrhosis of the liver, incontinent, multiple decubitus ulcers. FAMILY HISTORY: Father and mother, noncontributory. HABITS: Never smoked. No drugs. No ethanol. ALLERGIES: THE PATIENT IS NOT ALLERGIC TO ANY MEDICATIONS. REVIEW OF SYSTEMS: The patient was seen and examined at the bedside, looking comfortable. No nausea, vomiting, diarrhea. No chest pain. No palpitation. PHYSICAL EXAMINATION VITAL SIGNS: Temperature 98.3, pulse 109, respiratory rate 18, blood pressure 114/72, pulse oximetry 100. HEENT: Head is normocephalic, atraumatic. Eyes PERRLA. Extraocular muscles are intact. Conjunctivae clear. Nose patent. Mucous membranes moist. NECK: Supple. No carotid bruits. No JVD, thyromegaly. CHEST: Bilaterally symmetrical. HEART: S1, S2 positive. LUNGS: Clear to auscultation. ABDOMEN: Soft. Bowel sounds present. No organomegaly. EXTREMITIES: No edema. No cyanosis. NEUROLOGIC: The patient is awake, alert, moving all four extremities. No focal deficits. LABORATORY DATA: White blood cell 10.1, hemoglobin 9.5, hematocrit 30.5, platelets 420,000. Sodium 134, potassium 4.8, BUN 34, creatinine 0.8, glucose 192. ASSESSMENT AND PLAN: Mr. Geo Ewing is a 72 years old male with anemia, hypochloremia, hyperglycemia, abnormal liver function test, proteinuria, hematuria, history of multiple decubitus ulcers. CAT scan of the head done reviewed by me. History of atrial fibrillation on Eliquis, hypertension, chronic obstructive pulmonary disease, throat cancer, cirrhosis of liver, dementia, transient ischemic attack, cerebrovascular accident, right-sided hemiparesis, came in the emergency room for hallucinations. CAT scan of the head done. Cultures done. Continue present treatment. Repeat labs. We will follow. Mariana Fernandez MD (Delete this signature block when dictator is a preceptor.) cc: MD Nona (Delete if not dictated.)
[2018-04-16 09:08] LABS: HEMOGLOBIN 8.6 g/dL (14.0-18.0); MEAN CELL VOLUME 76.9 fl (80.0-105.0); MEAN CORPUSCULAR HEMOGLOBIN 24.8 pg (25.0-35.0); MEAN CORPUSCULAR HGB CONC 32.2 g/dl (31.0-37.0); MEAN PLATELET VOLUME 8.3 fl (7.0-11.0); RBC 3.47 10^6/uL (3.5-6.1); WHITE BLOOD COUNT 10.8 10^3/uL (4.5-11.0)
[2018-04-16 09:16] LABS: BLOOD UREA NITROGEN 28 mg/dL (7-21); CALCIUM 8.8 mg/dL (8.4-10.5); GFR NON-AFRICAN AMERICAN > 60
[2018-04-16] MEDS: levETIRAcetam 500 mg/5ml UD cups PEG SCH ×2 (10:11→22:04)
[2018-04-16] MEDS: Magnesium Oxide 400 mg Tab UD PEG SCH ×2 (10:11→17:40)
[2018-04-16] MEDS: Collagenase 250 Units/gm Ointment(30 gm) TOP SCH ×2 (10:12→10:13)
[2018-04-16] MEDS: POLYETHYLENE GLYCOL 3350 17 GM/Dose PACKET PEG SCH ×2 (10:12→17:38)
[2018-04-16] MEDS: Mupirocin 2% Ointment 15 GM TUBE TOP SCH ×2 (10:14→20:41)
[2018-04-16] MEDS: Silver Sulfadiazine 1% Cream (25 gm) TP SCH ×2 (10:14→20:40)
--- NOTE | 2018-04-16 10:26 | CP.PCM.CON ---
History of Present Illness - History of Present Illness History of Present Illness: Palliative consult requested by Dr Romina Fernandez Reason: Goals of care 72 year old male with history of CVA, A Fib on Elequis,COPD, dementia, cirrhosis who presented to ED on 04/15 with AMS and left hip ulcer.Was recently admitted to acute care on 04/01 with pneumonia. Chest x ray: No active disease Head CT: No changes Labs: Wbc 10.1, Hgb 9.5, Plt 420, Na 134, K 4.8, Bun 34, Presidential Support Specialist 0.8,glucose 147, AST 67, LTt 41, Albumin 3.2, troponin 0.02. U/A and U/C yeast EKG: A flutter 2;[address] changes PMHX: Dementia, cirrhosis, CVA with right hemiparesis, dysphagia s/p PEG, bed bound,contracture's,left hip ulcer,bilateral inguinal hernia's,COPD,seizure disorder PSHX: L hip replacement, hernia repair PEG. Social History: Former smoker, no alcohol or drug use. Lives with daughter who is is multimedia instructional designer metalizing supervisor Family History: Non contributory. Advance Care Planning: The patient does not have an Advanced Directive Review of Systems: As per HPI, patient is altered unable to obtain Past Patient History - Infectious Disease Hx of Infectious Diseases: None - Past Medical History & Family History Past Medical History?: Yes - Past Social History Smoking Status: Unknown If Ever Smoked - CARDIAC Hx Cardiac Disorders: Yes (A fib) Hx Hypertension: Yes - PULMONARY Hx Chronic Obstructive Pulmonary Disease (COPD): Yes - NEUROLOGICAL HX Cerebrovascular Accident: Yes - HEENT Hx HEENT Problems: No - RENAL Hx Chronic Kidney Disease: No - ENDOCRINE/METABOLIC Hx Endocrine Disorders: No - HEMATOLOGICAL/ONCOLOGICAL Hx Blood Transfusions: No Hx Blood Transfusion Reaction: No - INTEGUMENTARY Other/Comment: multiple ble skin discolorations - MUSCULOSKELETAL/RHEUMATOLOGICAL Hx Musculoskeletal Disorders: Yes - GASTROINTESTINAL Hx Gastrointestinal Disorders: Yes (L INGUINAL HERNIA) Hx Liver Failure: Yes (cirrhosis) - GENITOURINARY/GYNECOLOGICAL Hx Incontinence: Yes - PSYCHIATRIC Hx Emotional Abuse: No Hx Physical Abuse: No Hx Substance Use: No - SURGICAL HISTORY Hx Orthopedic Surgery: Yes - ANESTHESIA Hx Anesthesia: Yes Hx Anesthesia Reactions: No Hx Malignant Hyperthermia: No Meds Allergies/Adverse Reactions: Allergies Allergy/AdvReac Type Severity Reaction Status Date / Time No Known Allergies Allergy Verified 04/01/18 02:35 - Medications Medications: Current Medications Acetaminophen (Tylenol 650mg/20.3ml Solution Ud) 650 mg PEG Q6H PRN PRN Reason: Pain, Mild (1-3) Apixaban (Eliquis) 5 mg PEG BID [facility]; Protocol Last Admin: 04/16/18 10:11 Dose: 5 mg Collagenase (Santyl) 1 gm TOP DAILY [facility] Last Admin: 04/16/18 10:12 Dose: 1 applic Collagenase (Santyl) 1 gm TOP DAILY [facility] Last Admin: 04/16/18 10:13 Dose: 2 applic Famotidine (Pepcid) 40 mg PEG HS [facility] Last Admin: 04/15/18 22:03 Dose: 40 mg Levetiracetam (Keppra) 500 mg PEG Q12 [facility] Last Admin: 04/16/18 10:11 Dose: 500 mg Magnesium Oxide (Mag-Ox) 400 mg PEG BID [facility] Last Admin: 04/16/18 10:11 Dose: 400 mg Metoprolol Tartrate (Lopressor) 100 mg PEG BID [facility] Last Admin: 04/16/18 10:14 Dose: Not Given Morphine Sulfate (Morphine) 2 mg IVP Q4H PRN PRN Reason: Pain, severe (8-10) Last Admin: 04/14/18 16:37 Dose: 2 mg Mupirocin (Bactroban Ointment) 1 gm TOP BID [facility] Last Admin: 04/16/18 10:14 Dose: 1 applic Polyethylene Glycol (Miralax) 17 gm PEG BID [facility] Last Admin: 04/16/18 10:12 Dose: Not Given Silver Sulfadiazine (Silvadene 1% 25 Gm) 1 gm TP BID [facility] Last Admin: 04/16/18 10:14 Dose: 1 gm Results - Vital Signs Recent Vital Signs: Last Vital Signs Temp 99.4 F 04/16/18 06:00 Pulse 113 H 04/16/18 06:00 Resp 18 04/16/18 06:00 BP 86/54 L 04/16/18 10:14 Pulse Ox 97 04/16/18 06:00 - Labs Result Diagrams: 04/16/18 08:50 04/16/18 08:50 Labs: Laboratory Results - last 24 hr 04/16/18 04/16/18 08:50 08:50 WBC 10.8 RBC 3.47 L Hgb 8.6 L Hct 26.7 L MCV 76.9 L MCH 24.8 L MCHC 32.2 RDW 16.0 H Plt Count 446 MPV 8.3 Sodium 132 Potassium 4.2 Chloride 100 Carbon Dioxide 26 Anion Gap 11 BUN 28 H Creatinine 0.7 L Est GFR ( Amer) > 60 Est GFR (Non-Af Amer) > 60 Random Glucose 105 Calcium 8.8 Assessment & Plan - Assessment and Plan (Free Text) Assessment: 72 year old male with history of HTN,pneumonia,dysphagia s/p PEG,CVA with right alfa paresis and dementia who is admitted with AMS, sacral and left hip ulcers. The patient responds to verbal command. He denies pain I spoke with Mr. Baker's daughter Eladia(POA) via phone. Advance care planning discussed. The patient does not have am Advanced Directive. Benefits and burdens of CPR/intubation explained. Eladia states that she wants "everything done". She states that if her father requires permanent mechanical ventilation/trach she will likely decide to withdraw care at that point in time Time spent in goals of care and advance care planning with daughters,20 minutes Plan: A Fib: Elequis HTN: Lopressor Wound care, Santyl, Silvadene, Bactroban. Surgery following Seizure disorder: Maheshppra twice dialy Goals of care and advance care planning
[2018-04-16 12:39] LABS: IRON 19 ug/dL (45-180)
[2018-04-16 12:49] LABS: % IRON SATURATION 10 % (20-55); TOTAL IRON BINDING CAPACITY 199 ug/dL (261-462)
[2018-04-16] MEDS: Sodium Chloride 0.9% 1,000 ML IV SCH (17:39)
--- NOTE | 2018-04-17 06:34 | PN ---
DATE: 04/16/2018 SUBJECTIVE: Patient is a 72-year-old male. Patient was seen and examined at the bedside on 04/16/2018. Looking comfortable. No change in the status. Seen by palliative nurse. No fever. No chills. No hematuria, no hematochezia. Legs have contractures. Patient is very poor historian. No headache. No dizziness. PHYSICAL EXAMINATION: VITAL SIGNS: Temperature 99.4, pulse 113, respiratory rate 18, blood pressure 83/54, pulse oximetry 97. HEENT: Head, normocephalic, atraumatic. Eyes, PERRLA. Extraocular muscles intact. Conjunctivae clear. Nose, patent. Mucous membrane moist. NECK: Supple. No carotid bruit. No JVD or thyromegaly. CHEST: Bilaterally symmetrical. HEART: S1 and S2 positive. LUNGS: Clear to auscultation. ABDOMEN: Soft. Bowel sounds positive. No organomegaly. EXTREMITIES: Trace edema. Has multiple decubitus ulcers and contractures. LABORATORY DATA: White blood cells 10.8, hemoglobin 8.6, hematocrit 26.7, platelets 446. Sodium 132, potassium 4.2, BUN 20, creatinine 0.7, glucose 105. ASSESSMENT AND PLAN: Mr. Geo Ewing, 72-year-old male with anemia, renal insufficiency, history of hypertension and pneumonia, dysphagia, status post percutaneous endoscopic gastrostomy placement, cerebrovascular accident, right hemiparesis, dementia, altered mental status, sacral decubitus ulcers. Patient is getting antibiotics and has multiple decubitus. We called comfort care consult nurse Florina Cleveland. She spoke to patient's daughter RANDY Montilla via phone. Advanced care planning discussed. The patient does not have any advance care directive. Benefits and burdens of cardiopulmonary resuscitation and intubation explained to the patient's daughter Eladia by Florina Cleveland. Eladia stated that she wants everything done. She want to make father full code. She states that if her father requires permanent mechanical ventilation, trach, she will likely decide to withdraw care at that point at that time, but right now, patient is full code. We will continue present treatment. Patient has atrial fibrillation. Continue Eliquis. For hypertension Lopressor, wound care. Seizure disorder, getting Keppra. Gastrointestinal, deep vein thrombosis prophylaxes. Repeat labs. We will follow up. Mariana Fernandez MD [facility] # [id number]
[2018-04-17 07:21] LABS: HEMOGLOBIN 9.2 g/dL (14.0-18.0); MEAN CELL VOLUME 77.9 fl (80.0-105.0); MEAN CORPUSCULAR HEMOGLOBIN 24.5 pg (25.0-35.0); MEAN CORPUSCULAR HGB CONC 31.5 g/dl (31.0-37.0); MEAN PLATELET VOLUME 8.4 fl (7.0-11.0); RBC 3.75 10^6/uL (3.5-6.1); RED CELL DISTRIBUTION WIDTH 16.2 % (11.5-14.5); WHITE BLOOD COUNT 11.3 10^3/uL (4.5-11.0)
[2018-04-17 07:40] LABS: BLOOD UREA NITROGEN 20 mg/dL (7-21); CALCIUM 8.7 mg/dL (8.4-10.5); GFR NON-AFRICAN AMERICAN > 60
[2018-04-17] MEDS: levETIRAcetam 500 mg/5ml UD cups PEG SCH ×2 (11:11→21:39)
[2018-04-17] MEDS: POLYETHYLENE GLYCOL 3350 17 GM/Dose PACKET PEG SCH ×2 (11:12→19:28)
[2018-04-17] MEDS: Magnesium Oxide 400 mg Tab UD PEG SCH ×2 (11:12→19:27)
[2018-04-17] MEDS: Mupirocin 2% Ointment 15 GM TUBE TOP SCH ×2 (11:15→19:28)
[2018-04-17] MEDS: Silver Sulfadiazine 1% Cream (25 gm) TP SCH ×3 (11:16→19:29)
[2018-04-17] MEDS: Collagenase 250 Units/gm Ointment(30 gm) TOP SCH ×2 (11:16→19:28)
--- NOTE | 2018-04-18 02:29 | PN ---
DATE: 04/17/2018 SUBJECTIVE: The patient is a 72 years old male. The patient was seen and examined at the bedside on 04/17/2018. Looking comfortable, no change in status , has decubitus ulcers, also had decubitus ulcer on the whole body. No fever. No chills. Having oxygen with nasal cannula. Has PEG tube. Daughter was at the bedside. Lots of time discussion done with the patient's daughter, Eladia. All questions answered. PHYSICAL EXAMINATION VITAL SIGNS: Temperature 98.1, pulse 113, blood pressure 128/74, respiratory rate 18. HEENT: Head normocephalic, atraumatic. Eyes, PERRLA. Extraocular muscles are intact. Conjunctivae clear. Nose patent. Mucous membranes moist. NECK: Supple. No carotid bruits. No JVD or thyromegaly. CHEST: Bilaterally symmetrical. HEART: S1, S2 positive. LUNGS: Clear to auscultation. ABDOMEN: Soft. Bowel sounds positive. No organomegaly. EXTREMITIES: Trace edema. Multiple stages decubitus ulcers. NEUROLOGIC: The patient is awake and alert. He is not able to follow commands. LABORATORY DATA: White blood cells 11.3, hemoglobin 9.2, hematocrit 29.2, platelet count 420,000. Sodium 135, potassium 4.2, BUN 20, creatinine 0.7, glucose 109. MEDICATIONS: Bactroban, Eliquis, iron, Keppra, Lopressor, magnesium oxide, MiraLax, morphine, Pepcid, NS, and Tylenol. ASSESSMENT AND PLAN: Mr. Geo Ewing is a 72 years old male with a history of hyponatremia, improved; renal insufficiency, improved; iron deficiency; abnormal liver function tests; leukocytosis; anemia; proteinuria; hematuria; has multiple medical problems. History of hypertension, multiple times pneumonia , dysphagia, status post percutaneous endoscopic gastrostomy placement, cerebrovascular accident, right hemiparesis, altered mental status,sacral decubitus ulcers, getting antibiotics, multiple decubitus ulcers. Infectious Disease is on the case. Discussion done with the patient's daughter, Eladia, power of air traffic control specialist center. Treatment plan made. All questions answered. Physical therapy at the bedside. Comfort care team, Florina Cleveland is on the case. We will follow up. Mariana Fernandez MD JAMES
[2018-04-18] MEDS: Sodium Chloride 0.9% 1,000 ML IV SCH ×2 (02:40→10:10)
[2018-04-18 09:53] LABS: HEMOGLOBIN 8.9 g/dL (14.0-18.0); MEAN CELL VOLUME 78.9 fl (80.0-105.0); MEAN CORPUSCULAR HEMOGLOBIN 24.7 pg (25.0-35.0); MEAN CORPUSCULAR HGB CONC 31.3 g/dl (31.0-37.0); MEAN PLATELET VOLUME 8.5 fl (7.0-11.0); RBC 3.6 10^6/uL (3.5-6.1); RED CELL DISTRIBUTION WIDTH 16.3 % (11.5-14.5); WHITE BLOOD COUNT 17.1 10^3/uL (4.5-11.0)
[2018-04-18] MEDS: Silver Sulfadiazine 1% Cream (25 gm) TP SCH ×2 (10:00→19:13)
[2018-04-18] MEDS: Collagenase 250 Units/gm Ointment(30 gm) TOP SCH ×2 (10:00)
[2018-04-18] MEDS: Mupirocin 2% Ointment 15 GM TUBE TOP SCH ×2 (10:00→19:11)
[2018-04-18 10:08] LABS: BLOOD UREA NITROGEN 22 mg/dL (7-21); CALCIUM 8.6 mg/dL (8.4-10.5); GFR NON-AFRICAN AMERICAN > 60
[2018-04-18] MEDS: Magnesium Oxide 400 mg Tab UD PEG SCH ×2 (10:10→19:10)
[2018-04-18] MEDS: levETIRAcetam 500 mg/5ml UD cups PEG SCH ×2 (10:10→21:52)
[2018-04-18] MEDS: POLYETHYLENE GLYCOL 3350 17 GM/Dose PACKET PEG SCH ×2 (10:10→19:12)
--- NOTE | 2018-04-18 11:08 | RAD ---
Date of service: 04/18/2018 HISTORY: r/o pne COMPARISON: 04/13/2018 FINDINGS: LUNGS: No active pulmonary disease. PLEURA: No significant pleural effusion identified, no pneumothorax apparent. CARDIOVASCULAR: No atherosclerotic calcification present No radiographic findings to suggest acute or significant cardiovascular disease.Position/ configuration of pacemaker device: Satisfactory. OSSEOUS STRUCTURES: No significant abnormalities. VISUALIZED UPPER ABDOMEN: Normal. OTHER FINDINGS: None. IMPRESSION: No active disease. No significant interval change compared to the prior examination(s).
--- NOTE | 2018-04-18 13:23 | CP.PCM.CON ---
<Rosendo Aguilera - Last Filed: 04/18/18 13:20> History of Present Illness - History of Present Illness History of Present Illness: Podiatry Consult Note for Dr. Herndon 72y/o male patient with PMHx of A fib, hypertension, COPD, throat cancer, cirrhosis, Dementia and TIA seen at bedside for multiple bilateral lower extremity wounds/blood blisters. Patient is asleep during visit but easily arous able. Per nursing no recent N/V/F/C/CP/SOB/D. Patient poor historian, unable to obtian history from patient. Patient has been admitted due to altered mental status and dehydration. Review of Systems - Review of Systems All systems: reviewed and no additional remarkable complaints except Review of Systems: As per HPI Past Patient History - Infectious Disease Hx of Infectious Diseases: None - Past Medical History & Family History Past Medical History?: Yes - Past Social History Smoking Status: Unknown If Ever Smoked - CARDIAC Hx Cardiac Disorders: Yes (A fib) Hx Hypertension: Yes - PULMONARY Hx Chronic Obstructive Pulmonary Disease (COPD): Yes - NEUROLOGICAL HX Cerebrovascular Accident: Yes - HEENT Hx HEENT Problems: No - RENAL Hx Chronic Kidney Disease: No - ENDOCRINE/METABOLIC Hx Endocrine Disorders: No - HEMATOLOGICAL/ONCOLOGICAL Hx Blood Transfusions: No Hx Blood Transfusion Reaction: No - INTEGUMENTARY Other/Comment: multiple ble skin discolorations - MUSCULOSKELETAL/RHEUMATOLOGICAL Hx Musculoskeletal Disorders: Yes - GASTROINTESTINAL Hx Gastrointestinal Disorders: Yes (L INGUINAL HERNIA) Hx Liver Failure: Yes (cirrhosis) - GENITOURINARY/GYNECOLOGICAL Hx Incontinence: Yes - PSYCHIATRIC Hx Emotional Abuse: No Hx Physical Abuse: No Hx Substance Use: No - SURGICAL HISTORY Hx Orthopedic Surgery: Yes - ANESTHESIA Hx Anesthesia: Yes Hx Anesthesia Reactions: No Hx Malignant Hyperthermia: No Meds Allergies/Adverse Reactions: Allergies Allergy/AdvReac Type Severity Reaction Status Date / Time No Known Allergies Allergy Verified 04/01/18 02:35 - Medications Medications: Current Medications Acetaminophen (Tylenol 650mg/20.3ml Solution Ud) 650 mg PEG Q6H PRN PRN Reason: Pain, Mild (1-3) Apixaban (Eliquis) 5 mg PEG BID [facility]; Protocol Last Admin: 04/18/18 10:09 Dose: 5 mg Collagenase (Santyl) 1 gm TOP DAILY [facility] Last Admin: 04/17/18 11:16 Dose: 1 applic Collagenase (Santyl) 1 gm TOP DAILY [facility] Last Admin: 04/17/18 19:28 Dose: 1 applic Famotidine (Pepcid) 40 mg PEG HS [facility] Last Admin: 04/17/18 21:39 Dose: 40 mg Ferrous Gluconate (Fergon) 324 mg PO TID [facility] Last Admin: 04/18/18 10:10 Dose: 324 mg Sodium Chloride (Sodium Chloride 0.9%) 1,000 mls @ 100 mls/hr IV .Q10H [facility] Last Admin: 04/18/18 10:10 Dose: 100 mls/hr Levetiracetam (Keppra) 500 mg PEG Q12 [facility] Last Admin: 04/18/18 10:10 Dose: 500 mg Magnesium Oxide (Mag-Ox) 400 mg PEG BID [facility] Last Admin: 04/18/18 10:10 Dose: 400 mg Metoprolol Tartrate (Lopressor) 100 mg PEG BID [facility] Last Admin: 04/18/18 10:10 Dose: 100 mg Mupirocin (Bactroban Ointment) 1 gm TOP BID [facility] Last Admin: 04/17/18 19:28 Dose: 1 applic Polyethylene Glycol (Miralax) 17 gm PEG BID [facility] Last Admin: 04/18/18 10:10 Dose: 17 gm Silver Sulfadiazine (Silvadene 1% 25 Gm) 1 gm TP BID [facility] Last Admin: 04/17/18 19:29 Dose: 1 gm Physical Exam - Constitutional Appears: Well, Non-toxic, No Acute Distress - Head Exam Head Exam: ATRAUMATIC, NORMOCEPHALIC - Extremities Exam Additional comments: LE focused exam: Vasc: DP/PT pulses faintly palpable 1/4 b/l. Skin temperature warm to warm from proximal to distal. CFT < 3 seconds to all digits b/l. No edema noted b/l Neuro: unable to assess Derm: R- multiple areas of superficial skin wounds noted thigh and the foot, no malodor, no drainage, no clinical signs of infection L- multiple areas of pressure hematomas noted to the lateral aspect of the 5th digit and dorso-lateral aspect of the foot along with a heel ulceration, No erythema, malodor, drainage, tracking, tunneling, undermining, probe to bone, or other clinical signs of infection noted MSK: Minimal tenderness on palpation to left heel. Rigid contractures of all digits 1-5 b/l. Otherwise, no gross deformities noted. Unable to assess muscle strength secondary to patient mental status - Psychiatric Exam Psychiatric exam: Normal Affect Results - Vital Signs Recent Vital Signs: Last Vital Signs Temp 98.4 F 04/18/18 06:00 Pulse 107 H 04/18/18 06:00 Resp 20 04/18/18 06:00 BP 118/79 04/18/18 06:00 Pulse Ox 95 04/18/18 06:00 - Labs Result Diagrams: 04/18/18 09:43 04/18/18 09:43 Labs: Laboratory Results - last 24 hr 04/18/18 04/18/18 09:43 09:43 WBC 17.1 H D RBC 3.60 Hgb 8.9 L Hct 28.4 L MCV 78.9 L MCH 24.7 L MCHC 31.3 RDW 16.3 H Plt Count 462 H MPV 8.5 Sodium 135 Potassium 4.0 Chloride 107 Carbon Dioxide 23 Anion Gap 8 L BUN 22 H Creatinine 0.6 L Est GFR ( Amer) > 60 Est GFR (Non-Af Amer) > 60 Random Glucose 83 Calcium 8.6 Assessment & Plan - Assessment and Plan (Free Text) Assessment: 72 y/o male patient seen and evaluated for bilateral lower extremity wounds Plan: Patient seen and evaluated plans discussed with Dr. Herndon Chart, labs and vitals were all reviewed- positive leukocytosis, afebrile at this time Right Lower Extremity Wounds- Exuderm patches applied to lower leg and foot, optiofoam applied to thigh wounds Left Lower Extremity Wounds- dry sterile dressing at this time Ordered Multipodus boots for patient, to be worn at all times Podiatry will change dressings every MWF and will continue to follow patient while in house Thank you for the consult - Date & Time Date: 04/18/18 Time: 13:33 <Mona Herndon - Last Filed: 04/21/18 14:50> Meds - Medications Medications: Current Medications Acetaminophen (Tylenol 650mg/20.3ml Solution Ud) 650 mg PEG Q6H PRN PRN Reason: Pain, Mild (1-3) Last Admin: 04/20/18 10:28 Dose: 650 mg Apixaban (Eliquis) 5 mg PEG BID [facility]; Protocol Last Admin: 04/21/18 12:29 Dose: 5 mg Collagenase (Santyl) 1 gm TOP DAILY [facility] Last Admin: 04/20/18 10:16 Dose: 1 applic Famotidine (Pepcid) 40 mg PEG HS [facility] Last Admin: 04/20/18 21:27 Dose: 40 mg Ferrous Gluconate (Fergon) 324 mg PO TID [facility] Last Admin: 04/21/18 12:30 Dose: 324 mg Sodium Chloride (Sodium Chloride 0.9%) 1,000 mls @ 100 mls/hr IV .Q10H [facility] Last Admin: 04/20/18 21:28 Dose: 100 mls/hr Vancomycin HCl (Vancomycin 1gm) 1 gm in 250 mls @ 167 mls/hr IVPB DAILY [facility]; Protocol Stop: 04/28/18 10:01 Last Admin: 04/21/18 12:30 Dose: 167 mls/hr Meropenem (Merrem Iv 1 Gm Premix) 1 gm in 50 mls @ 100 mls/hr IVPB Q8 [facility]; Protocol Last Admin: 04/21/18 05:13 Dose: 100 mls/hr Levetiracetam (Keppra) 500 mg PEG Q12 [facility] Last Admin: 04/21/18 12:29 Dose: 500 mg Magnesium Oxide (Mag-Ox) 400 mg PEG BID [facility] Last Admin: 04/21/18 12:29 Dose: 400 mg Metoprolol Tartrate (Lopressor) 100 mg PEG BID [facility] Last Admin: 04/21/18 12:29 Dose: 100 mg Mupirocin (Bactroban Ointment) 1 gm TOP BID [facility] Last Admin: 04/20/18 18:19 Dose: 1 applic Polyethylene Glycol (Miralax) 17 gm PEG BID [facility] Last Admin: 04/21/18 12:28 Dose: 17 gm Silver Sulfadiazine (Silvadene 1% 25 Gm) 1 gm TP BID [facility] Last Admin: 04/20/18 18:18 Dose: 1 gm Results - Vital Signs Recent Vital Signs: Last Vital Signs Temp 97.8 F 04/21/18 06:00 Pulse 91 H 04/21/18 06:00 Resp 18 04/21/18 06:00 BP 100/45 L 04/21/18 06:00 Pulse Ox 100 04/21/18 06:00 - Labs Result Diagrams: 04/21/18 07:00 04/21/18 07:00 Labs: Laboratory Results - last 24 hr 04/21/18 04/21/18 07:00 07:00 WBC 9.2 RBC 3.23 L Hgb 7.9 L Hct 25.8 L MCV 79.9 L MCH 24.5 L MCHC 30.6 L RDW 16.5 H Plt Count 459 H MPV 8.8 Sodium 139 Potassium 4.1 Chloride 110 H Carbon Dioxide 25 Anion Gap 9 L BUN 21 Creatinine 0.6 L Est GFR ( Amer) > 60 Est GFR (Non-Af Amer) > 60 Random Glucose 87 Calcium 8.2 L Total Bilirubin 0.2 AST 53 ALT 38 Alkaline Phosphatase 108 Total Protein 5.9 Albumin 2.4 L Globulin 3.5 Albumin/Globulin Ratio 0.7 L Attending/Attestation - Attestation I have personally seen and examined this patient.: Yes I have fully participated in the care of the patient.: Yes I have reviewed all pertinent clinical information: Yes
[2018-04-18] MEDS: Meropenem IV 1 gm in NS 1 GM/50 ML BAG IVPB SCH (21:52)
--- NOTE | 2018-04-19 03:56 | CON ---
DATE: 04/18/2018 The patient seen earlier today in room 574, bed 1. CHIEF COMPLAINT: Change in mental status x1 day duration. HISTORY OF PRESENT ILLNESS: This is a 72-year-old male with history of atrial fibrillation, recent hospitalization with HCAP, hypertension, chronic obstructive lung disease, dementia, TIA, cerebrovascular accident, right-sided weakness, cirrhosis, throat cancer, ESBL E. coli, wound infection, which was on 03/28/2018. The patient also with compression fractures in L2 and L4, is now admitted with a diagnosis of altered mental status, dehydration, decubitus ulcers. PAST MEDICAL HISTORY: Significant for atrial fibrillation, recent hospitalization, hypertension, chronic obstructive lung disease, dementia, TIA, cerebrovascular accident, cirrhosis, throat cancer, ESBL E. coli, and compression fracture in L2 and L4. PAST SURGICAL HISTORY: Significant for PEG tube placement, chronic Ann catheter, and the patient had left hip surgery. ALLERGIES: THE PATIENT HAS NO KNOWN ALLERGIES. MEDICATIONS AT HOME: Reveals the patient to be on Pepcid, Lasix, Eliquis, magnesium, Keppra, and Cardizem. REVIEW OF SYSTEMS: The patient is a poor historian. There have been no fevers documented. No chills documented. There is no abdominal pain, diarrhea, or constipation. Information is gathered from nurse. A 14-point review of systems is performed. PHYSICAL EXAMINATION: GENERAL: The patient is in bed, contracted, vegetative state; however, he does verbalize and he is communicating well. Although, he is not carrying on a conversation, he does give yes and no's, abrupt answers. VITAL SIGNS: Temperature of 98, T-max is 100.1, blood pressure is 107/57, respiratory rate of 18, heart rate of 113. HEENT: Unremarkable. NECK: Supple. LUNGS: Decreased breath sounds. HEART: Normal S1, S2. ABDOMEN: Soft. PEG tube site is clean. SKIN: He has multiple decubitus ulcers; right and left hip ulcers; sacral ulcer; left lower leg ulcer, both feet; right and left ____ ulcers, left more than right. LABORATORY DATA: Reveals the patient's white count is 17,000, hemoglobin of 8, platelets of 462. Chemistries reveal BUN 22, creatinine of 0.6. Procalcitonin is 0.28. LFTs are noted to be unremarkable, I believe that was on the 16th. Microbiology, he has yeast in the urine, few organisms. Chest x-ray is negative. ASSESSMENT AND PLAN: This is a 72-year-old male with atrial fibrillation, recent hospitalization, hypertension, chronic obstructive pulmonary disease, dementia, transient ischemic attack, cerebrovascular accident, cirrhosis, right-sided weakness, throat cancer, Extended-spectrum beta-lactamases Escherichia coli. Systemic inflammatory response syndrome, must rule out healthcare-associated pneumonia in the patient with tachycardia, leukocytosis. Although, he has multiple ulcers in the sacrum and hip and feet, vegetative state and contracted, able to communicate but poorly with chronic Ann catheter. The decubitus ulcers do not appear to be infected of the white count of 17,000. If there is any diarrhea, we will think of pseudomembranous colitis. We will treat the patient with vancomycin and meropenem. Pending blood culture, urine culture, and wound culture. Overall prognosis is quite poor for this patient. Efra Craig MD
--- NOTE | 2018-04-19 04:28 | PN ---
DATE: 04/18/2018 SUBJECTIVE: The patient was seen and examined at bedside on 04/18/2018, looking comfortable. No fever. No chills. No hematuria or hematochezia. No headache or dizziness. The patient is a poor historian. Has multiple decubitus ulcers. PHYSICAL EXAMINATION: VITAL SIGNS: Temperature 98.4, pulse 107, respiratory rate 20, blood pressure 118/79 and pulse oximetry 95%. HEENT: Head; normocephalic and atraumatic. Eyes, PERRLA. Extraocular muscles intact. Conjunctivae clear. Nose, patent. Mucous membrane moist. NECK: Supple. No carotid bruit. No JVD or thyromegaly. CHEST: Bilaterally symmetrical. HEART: S1 and S2 positive. LUNGS: Clear to auscultation. ABDOMEN: Soft. Bowel sounds positive. No organomegaly. EXTREMITIES: No edema. No cyanosis. NEUROLOGIC: The patient is awake and alert. Moving all four extremities. No focal deficits. LABORATORY DATA: White blood cell is 17.1, hemoglobin 8.9, hematocrit 28.4 and platelets 462,000. Sodium 135, potassium 4.0, BUN 22, creatinine 0.6, and glucose 83. ASSESSMENT AND PLAN: Mr. Geo Ewing is 72 years old male with leukocytosis, renal insufficiency, has bilateral extremity wounds. The patient has history of atrial fibrillation, hypertension, chronic obstruction pulmonary disease, throat cancer, cirrhosis of the liver, dementia, multiple bilateral lower extremity wounds and blisters. Getting IV antibiotics. Wound care. Gastrointestinal and deep venous thrombosis prophylaxes. Repeat labs. We will follow up. Mariana Fernandez MD
[2018-04-19] MEDS: Meropenem IV 1 gm in NS 1 GM/50 ML BAG IVPB SCH ×2 (05:37→22:27)
[2018-04-19 06:57] LABS: URINE BILIRUBIN NEGATIVE (NEGATIVE); URINE BLOOD MODERATE (NEGATIVE); URINE GLUCOSE (UA) NEGATIVE (NEGATIVE); URINE LEUKOCYTE ESTERASE LARGE Leu/uL (NEGATIVE); URINE PROTEIN 30 mg/dL (<30 mg/dL); URINE UROBILINOGEN 0.2 E.U./dL (<1 E.U./dL)
[2018-04-19 06:58] LABS: URINE APPEARANCE CLOUDY (CLEAR); URINE COLOR YELLOW (YELLOW)
[2018-04-19 07:07] LABS: URINE BACTERIA LARGE (NEG); URINE WBC TNTC /hpf (0-6)
--- NOTE | 2018-04-19 07:59 | CP.PCM.PCO ---
Physician Communication Note - Physician Communication Note Physician Communication Note: Concur with wound care Recommendations
[2018-04-19] MEDS: Mupirocin 2% Ointment 15 GM TUBE TOP SCH ×2 (10:46→17:55)
[2018-04-19] MEDS: levETIRAcetam 500 mg/5ml UD cups PEG SCH ×2 (10:46→22:26)
[2018-04-19] MEDS: Magnesium Oxide 400 mg Tab UD PEG SCH ×2 (10:46→17:54)
[2018-04-19] MEDS: Vancomycin 1gm in NS 250ml 1 GM/250 ML BAG IVPB SCH (10:46)
[2018-04-19] MEDS: Silver Sulfadiazine 1% Cream (25 gm) TP SCH ×2 (10:47→17:55)
[2018-04-19] MEDS: Collagenase 250 Units/gm Ointment(30 gm) TOP SCH (10:47)
[2018-04-19] MEDS: POLYETHYLENE GLYCOL 3350 17 GM/Dose PACKET PEG SCH ×2 (10:47→17:54)
--- NOTE | 2018-04-19 11:51 | CP.PCM.PN ---
Subjective - Date & Time of Evaluation Date of Evaluation: 04/19/18 Time of Evaluation: 11:46 - Subjective Subjective: Podiatry progress note for attending Dr Herndon: 72 y/o male patient seen and evaluated at bedside for multiple bilateral lower extremity wounds/blood blisters. Patient was awake during the visit. Patient is poor historian and his data obtained through the chart. As per his chart no overnight N/V/F/C/CP/SOB/D. Patient was in pain during his dressing change. Objective - Vital Signs/Intake and Output Vital Signs (last 24 hours): Temp Pulse Resp BP Pulse Ox 97.9 F 111 H 18 105/60 98 04/19/18 06:00 04/19/18 06:00 04/19/18 06:00 04/19/18 06:00 04/19/18 06:00 Intake and Output: 04/19/18 04/19/18 06:59 18:59 Output Total 400 Balance -400 - Medications Medications: Current Medications Acetaminophen (Tylenol 650mg/20.3ml Solution Ud) 650 mg PEG Q6H PRN PRN Reason: Pain, Mild (1-3) Apixaban (Eliquis) 5 mg PEG BID [facility]; Protocol Last Admin: 04/19/18 10:46 Dose: 5 mg Collagenase (Santyl) 1 gm TOP DAILY [facility] Last Admin: 04/19/18 10:47 Dose: 1 applic Famotidine (Pepcid) 40 mg PEG HS [facility] Last Admin: 04/18/18 21:52 Dose: 40 mg Ferrous Gluconate (Fergon) 324 mg PO TID [facility] Last Admin: 04/19/18 10:46 Dose: 324 mg Sodium Chloride (Sodium Chloride 0.9%) 1,000 mls @ 100 mls/hr IV .Q10H [facility] Last Admin: 04/18/18 10:10 Dose: 100 mls/hr Vancomycin HCl (Vancomycin 1gm) 1 gm in 250 mls @ 167 mls/hr IVPB DAILY [facility]; Protocol Stop: 04/28/18 10:01 Last Admin: 04/19/18 10:46 Dose: 167 mls/hr Levetiracetam (Keppra) 500 mg PEG Q12 [facility] Last Admin: 04/19/18 10:46 Dose: 500 mg Magnesium Oxide (Mag-Ox) 400 mg PEG BID [facility] Last Admin: 04/19/18 10:46 Dose: 400 mg Metoprolol Tartrate (Lopressor) 100 mg PEG BID [facility] Last Admin: 04/19/18 10:46 Dose: 100 mg Mupirocin (Bactroban Ointment) 1 gm TOP BID [facility] Last Admin: 04/18/18 19:11 Dose: Not Given Polyethylene Glycol (Miralax) 17 gm PEG BID [facility] Last Admin: 04/19/18 10:47 Dose: 17 gm Silver Sulfadiazine (Silvadene 1% 25 Gm) 1 gm TP BID [facility] Last Admin: 04/19/18 10:47 Dose: 1 gm - Labs Labs: 04/18/18 09:43 04/18/18 09:43 PT 16.5 SECONDS (9.4-12.5) H 04/13/18 10:50 INR 1.42 04/13/18 10:50 APTT 28.7 Seconds (25.1-36.5) 04/13/18 10:50 - Head Exam Head Exam: ATRAUMATIC - Extremities Exam Additional comments: LE focused exam: Vasc: DP/PT pulses faintly palpable 1/4 b/l. Skin temperature warm to warm from proximal to distal. Cap refill < 3 seconds to all digits b/l. No edema noted b/l Neuro: unable to assess. Patient is not cooperative Derm: R- multiple areas of superficial skin wounds noted thigh and the foot, no malodor, no drainage, no clinical signs of infection L- multiple areas of pressure hematomas noted to the lateral aspect of the 5th digit and dorso-lateral aspect of the foot along with a heel ulceration, No eryt julia, malodor, drainage, tracking, tunneling, undermining, probe to bone, or other clinical signs of infection noted MSK: Minimal tenderness on palpation to left heel. Rigid contracture of all digits 1-5 b/l. Otherwise, no gross deformities noted. Unable to assess muscle strength secondary to patient mental status. Pain with attempt to change the patient position to change the dressing - Neurological Exam Neurological Exam: Awake Assessment and Plan - Assessment and Plan (Free Text) Assessment: 72 y/o male patient seen and evaluated for bilateral lower extremity wounds Plan: Patient seen and evaluated at the bedside Plans discussed with Dr. Herndon Chart, labs and vitals were all reviewed- positive leukocytosis 17.1 (04/18), afebrile Right Lower Extremity Wounds- Exuderm patches applied to lower leg and foot, optiofoam applied to thigh wounds Left Lower Extremity Wounds- dry sterile dressing to his left foot Multipodus boots for patient, to continue being worn at all times Podiatry will change dressings every MWF and will continue to follow up the patient while in house
--- NOTE | 2018-04-19 12:22 | PN ---
DATE: 04/19/2018 SUBJECTIVE: The patient was seen and examined on the bedside on 04/19/2018, looking comfortable. Actually, no big change in the status. No fever. No chills. The patient is not a good historian, but looks like not in distress, but during dressing change, he has pain and he is on pain medication. PHYSICAL EXAMINATION: VITAL SIGNS: Temperature 97.9, pulse 111, respiratory rate 18, blood pressure 105/60, pulse oximetry 98. HEENT: Head normocephalic, atraumatic. Eyes PERRLA. Extraocular muscles intact. Conjunctivae clear. Nose patent. Mucous membrane moist. NECK: Supple. No carotid bruit. No JVD or thyromegaly. CHEST: Bilaterally symmetrical. HEART: S1 and S2 positive. LUNGS: Clear to auscultation. ABDOMEN: Soft. Bowel sounds positive. No organomegaly. EXTREMITIES: Trace edema. NEUROLOGICAL: The patient is awake, alert. Follows simple commands. SKIN: Multiple decubitus ulcers with different stages of healing. MEDICATIONS: Tylenol, Eliquis, Santyl, Pepcid, ferrous sulfate, NS, vancomycin, Keppra, magnesium oxide, Lopressor, MiraLax, Silvadene. LABORATORY DATA: White blood cells 7.1, hemoglobin 8.9, hematocrit 28.4, platelets 452. Sodium 135, potassium 4, BUN 22, creatinine 0.8, glucose 83. ASSESSMENT AND PLAN: Mr. Geo Ewing, 72-year-old male with leukocytosis, anemia, thrombocytosis, renal insufficiency, has bilateral lower extremity wounds, atrial fibrillation, hypertension, chronic obstructive pulmonary disease, throat cancer, cirrhosis of the liver, dementia, multiple bilateral lower extremity wounds and blisters. Getting IV antibiotics, wound care. Podiatry, Infectious Disease and Surgery is on the case. We will follow up. Mariana Fernandez MD
[2018-04-19] MEDS: Sodium Chloride 0.9% 1,000 ML IV SCH (17:56)
--- NOTE | 2018-04-19 23:34 | PN ---
DATE: 04/19/2018 SUBJECTIVE: The patient is in bed, in no acute distress, nontoxic. OBJECTIVE: VITAL SIGNS: On exam, temperature is 98, blood pressure is 120/70, respiratory rate of 16. HEENT: Examination of HEENT is unremarkable. NECK: Supple. LUNGS: Have decreased breath sounds. HEART: Normal S1, S2. ABDOMEN: Soft. LABORATORY DATA: Laboratory examination reveals a white count of 17,000, hemoglobin of 8, BUN of 22, creatinine of 0.6. ASSESSMENT AND PLAN: This is a 72-year-old male with atrial fibrillation, recent hospitalization, hypertension, chronic obstructive lung disease, dementia, transient ischemic attack, cerebrovascular accident with right-sided weakness, cirrhosis, throat cancer, history of extended-spectrum beta-lactamase Escherichia coli, now admitted with systemic inflammatory response syndrome and multiple ulcers in the sacrum, hip, lower extremity, and feet. No diarrhea reported. Thus far, the blood cultures are negative with hip wound cultures are pending, currently on vancomycin. Review of the medications reveals that meropenem was stopped by pharmacy, we will reorder it again. We will follow with you. Efra Craig MD
[2018-04-20] MEDS: Sodium Chloride 0.9% 1,000 ML IV SCH ×2 (01:39→21:28)
[2018-04-20] MEDS: Meropenem IV 1 gm in NS 1 GM/50 ML BAG IVPB SCH ×3 (05:03→21:27)
[2018-04-20 07:17] LABS: HEMOGLOBIN 7.9 g/dL (14.0-18.0); MEAN CELL VOLUME 79.6 fl (80.0-105.0); MEAN CORPUSCULAR HEMOGLOBIN 24.8 pg (25.0-35.0); MEAN CORPUSCULAR HGB CONC 31.2 g/dl (31.0-37.0); MEAN PLATELET VOLUME 8.4 fl (7.0-11.0); RBC 3.18 10^6/uL (3.5-6.1); RED CELL DISTRIBUTION WIDTH 16.5 % (11.5-14.5); WHITE BLOOD COUNT 9.6 10^3/uL (4.5-11.0)
[2018-04-20 07:41] LABS: ALB/GLOB RATIO 0.6 (1.1-1.8); ALBUMIN 2.4 g/dL (3.0-4.8); ALT/SGPT 40 U/L (7-56); AST/SGOT 64 U/L (17-59); BLOOD UREA NITROGEN 21 mg/dL (7-21); CALCIUM 8.3 mg/dL (8.4-10.5); GFR NON-AFRICAN AMERICAN > 60
[2018-04-20] MEDS: POLYETHYLENE GLYCOL 3350 17 GM/Dose PACKET PEG SCH ×2 (10:10→17:50)
[2018-04-20] MEDS: Magnesium Oxide 400 mg Tab UD PEG SCH ×2 (10:13→17:51)
[2018-04-20] MEDS: levETIRAcetam 500 mg/5ml UD cups PEG SCH ×2 (10:14→21:27)
[2018-04-20] MEDS: Silver Sulfadiazine 1% Cream (25 gm) TP SCH ×2 (10:15→18:18)
[2018-04-20] MEDS: Collagenase 250 Units/gm Ointment(30 gm) TOP SCH (10:16)
[2018-04-20] MEDS: Mupirocin 2% Ointment 15 GM TUBE TOP SCH ×2 (10:17→18:19)
[2018-04-20] MEDS: Acetaminophen 650mg/20.3ml solution UD PEG PRN (10:28)
[2018-04-20 10:59] LABS: HEMOGLOBIN 8.5 g/dL (14.0-18.0)
[2018-04-20] MEDS: Vancomycin 1gm in NS 250ml 1 GM/250 ML BAG IVPB SCH (11:00)
--- NOTE | 2018-04-20 13:41 | PN ---
DATE: 04/20/2018 SUBJECTIVE: The patient is in bed, in no acute distress, nontoxic. PHYSICAL EXAMINATION VITAL SIGNS: Temperature is 98, blood pressure is 125/60, and respiratory rate of 18. HEENT: Unremarkable. NECK: Supple. LUNGS: Decreased breath sounds. HEART: Normal S1 and S2. ABDOMEN: Soft. LABORATORY EXAMINATION: Reveals a white count of 9.6 and hemoglobin of 7. BUN of 21 and creatinine is noted. Microbiology is reviewed. Yeast in the urine. Blood cultures are negative. X-ray is noted. Communication report is reviewed. Dr. Fernandez's progress note from yesterday is reviewed. ASSESSMENT AND PLAN: This is a 72-year-old male with atrial fibrillation, recent hospitalization, chronic obstructive lung disease, dementia, transient ischemic attack, cerebrovascular accident with right-sided weakness, throat cancer, history of extended-spectrum beta-lactamase, admitted with systemic inflammatory response syndrome and multiple ulcers in the sacrum, bilateral hip, bilateral feet, currently the culture is negative, yeast in urine and now the white count is down to 9.6 today, currently on vancomycin and meropenem day number 2. We will follow with you. Efra Craig MD
--- NOTE | 2018-04-20 17:59 | CP.PCM.PN ---
<Jorden Rome - Last Filed: 04/20/18 17:57> Subjective - Date & Time of Evaluation Date of Evaluation: 04/20/18 Time of Evaluation: 17:57 - Subjective Subjective: Podiatry progress note for attending Dr Montero: 72 y/o male patient seen and evaluated at bedside for multiple bilateral lower extremity wounds/blood blisters. Patient was sleeping during the visit. Patient is poor historian and his data obtained through the chart. As per his chart no overnight N/V/F/C/CP/SOB/D. Patient was in pain during his dressing change. Objective - Vital Signs/Intake and Output Vital Signs (last 24 hours): Temp Pulse Resp BP Pulse Ox 98 F 116 H 18 102/61 100 04/20/18 14:52 04/20/18 14:52 04/20/18 14:52 04/20/18 17:52 04/20/18 14:52 - Medications Medications: Current Medications Acetaminophen (Tylenol 650mg/20.3ml Solution Ud) 650 mg PEG Q6H PRN PRN Reason: Pain, Mild (1-3) Last Admin: 04/20/18 10:28 Dose: 650 mg Apixaban (Eliquis) 5 mg PEG BID [facility]; Protocol Last Admin: 04/20/18 17:51 Dose: 5 mg Collagenase (Santyl) 1 gm TOP DAILY [facility] Last Admin: 04/20/18 10:16 Dose: 1 applic Famotidine (Pepcid) 40 mg PEG HS [facility] Last Admin: 04/19/18 22:26 Dose: 40 mg Ferrous Gluconate (Fergon) 324 mg PO TID [facility] Last Admin: 04/20/18 17:51 Dose: 324 mg Sodium Chloride (Sodium Chloride 0.9%) 1,000 mls @ 100 mls/hr IV .Q10H [facility] Last Admin: 04/20/18 01:39 Dose: 100 mls/hr Vancomycin HCl (Vancomycin 1gm) 1 gm in 250 mls @ 167 mls/hr IVPB DAILY [facility]; Protocol Stop: 04/28/18 10:01 Last Admin: 04/20/18 11:00 Dose: Not Given Meropenem (Merrem Iv 1 Gm Premix) 1 gm in 50 mls @ 100 mls/hr IVPB Q8 [facility]; Protocol Last Admin: 04/20/18 15:00 Dose: Not Given Levetiracetam (Keppra) 500 mg PEG Q12 [facility] Last Admin: 04/20/18 10:14 Dose: 500 mg Magnesium Oxide (Mag-Ox) 400 mg PEG BID [facility] Last Admin: 04/20/18 17:51 Dose: 400 mg Metoprolol Tartrate (Lopressor) 100 mg PEG BID [facility] Last Admin: 04/20/18 17:52 Dose: Not Given Mupirocin (Bactroban Ointment) 1 gm TOP BID [facility] Last Admin: 04/20/18 10:17 Dose: 1 applic Polyethylene Glycol (Miralax) 17 gm PEG BID [facility] Last Admin: 04/20/18 17:50 Dose: 17 gm Silver Sulfadiazine (Silvadene 1% 25 Gm) 1 gm TP BID [facility] Last Admin: 04/20/18 10:15 Dose: 1 gm - Labs Labs: 04/20/18 10:50 04/20/18 06:30 PT 16.5 SECONDS (9.4-12.5) H 04/13/18 10:50 INR 1.42 04/13/18 10:50 APTT 28.7 Seconds (25.1-36.5) 04/13/18 10:50 - Head Exam Head Exam: ATRAUMATIC, NORMOCEPHALIC - Extremities Exam Additional comments: LE focused exam: Vasc: DP/PT pulses faintly palpable 1/4 b/l. Skin temperature warm to warm from proximal to distal. Cap refill < 3 seconds to all digits b/l. No edema noted b/l Neuro: unable to assess. Patient is not cooperative Derm: R- multiple areas of superficial skin wounds noted thigh and the foot, no malodor, no drainage, no clinical signs of infection L- multiple areas of pressure hematomas noted to the lateral aspect of the 5th digit and dorso-lateral aspect of the foot along with a heel ulceration, No erythema, malodor, drainage, tracking, tunneling, undermining, probe to bone, or other clinical signs of infection noted MSK: Minimal tenderness on palpation to left heel. Rigid contracture of all digits 1-5 b/l. Otherwise, no gross deformities noted. Unable to assess muscle strength secondary to patient mental status. Pain with attempt to change the patient position to change the dressing - Neurological Exam Neurological Exam: Altered Assessment and Plan - Assessment and Plan (Free Text) Assessment: 72 y/o male patient seen and evaluated for bilateral lower extremity wounds Plan: Patient seen and evaluated at the bedside Plans discussed with Dr. Montero Chart, labs and vitals were all reviewed- No leukocytosis 9.6 afebrile Right Lower Extremity Wounds- Exuderm patches applied to lower leg and foot, optiofoam applied to thigh wounds Left Lower Extremity Wounds- dry sterile dressing to his left foot Multipodus boots for patient, to continue being worn at all times Podiatry will change dressings every MWF and will continue to follow up the patient while in house <Samuel Montero - Last Filed: 04/21/18 08:39> Objective - Vital Signs/Intake and Output Vital Signs (last 24 hours): Temp Pulse Resp BP Pulse Ox 98 F 116 H 18 102/61 100 04/20/18 14:52 04/20/18 14:52 04/20/18 14:52 04/20/18 17:52 04/20/18 14:52 Intake and Output: 04/21/18 04/21/18 06:59 18:59 Intake Total 0 Output Total 1000 Balance -1000 - Medications Medications: Current Medications Acetaminophen (Tylenol 650mg/20.3ml Solution Ud) 650 mg PEG Q6H PRN PRN Reason: Pain, Mild (1-3) Last Admin: 04/20/18 10:28 Dose: 650 mg Apixaban (Eliquis) 5 mg PEG BID [facility]; Protocol Last Admin: 04/20/18 17:51 Dose: 5 mg Collagenase (Santyl) 1 gm TOP DAILY [facility] Last Admin: 04/20/18 10:16 Dose: 1 applic Famotidine (Pepcid) 40 mg PEG HS [facility] Last Admin: 04/20/18 21:27 Dose: 40 mg Ferrous Gluconate (Fergon) 324 mg PO TID [facility] Last Admin: 04/20/18 17:51 Dose: 324 mg Sodium Chloride (Sodium Chloride 0.9%) 1,000 mls @ 100 mls/hr IV .Q10H [facility] Last Admin: 04/20/18 21:28 Dose: 100 mls/hr Vancomycin HCl (Vancomycin 1gm) 1 gm in 250 mls @ 167 mls/hr IVPB DAILY [facility]; Protocol Stop: 12/01/18 10:01 Last Admin: 04/20/18 11:00 Dose: Not Given Meropenem (Merrem Iv 1 Gm Premix) 1 gm in 50 mls @ 100 mls/hr IVPB Q8 [facility]; Protocol Last Admin: 04/21/18 05:13 Dose: 100 mls/hr Levetiracetam (Keppra) 500 mg PEG Q12 [facility] Last Admin: 04/20/18 21:27 Dose: 500 mg Magnesium Oxide (Mag-Ox) 400 mg PEG BID [facility] Last Admin: 04/20/18 17:51 Dose: 400 mg Metoprolol Tartrate (Lopressor) 100 mg PEG BID [facility] Last Admin: 04/20/18 17:52 Dose: Not Given Mupirocin (Bactroban Ointment) 1 gm TOP BID [facility] Last Admin: 04/20/18 18:19 Dose: 1 applic Polyethylene Glycol (Miralax) 17 gm PEG BID [facility] Last Admin: 04/20/18 17:50 Dose: 17 gm Silver Sulfadiazine (Silvadene 1% 25 Gm) 1 gm TP BID [facility] Last Admin: 04/20/18 18:18 Dose: 1 gm - Labs Labs: 04/21/18 07:00 04/21/18 07:00 PT 16.5 SECONDS (9.4-12.5) H 04/13/18 10:50 INR 1.42 04/13/18 10:50 APTT 28.7 Seconds (25.1-36.5) 04/13/18 10:50 Attending/Attestation - Attestation I have personally seen and examined this patient.: Yes I have fully participated in the care of the patient.: Yes I have reviewed all pertinent clinical information, including history, physical exam and plan: Yes
[2018-04-21] MEDS: Meropenem IV 1 gm in NS 1 GM/50 ML BAG IVPB SCH ×3 (05:13→22:34)
[2018-04-21 07:36] LABS: HEMOGLOBIN 7.9 g/dL (14.0-18.0); MEAN CELL VOLUME 79.9 fl (80.0-105.0); MEAN CORPUSCULAR HEMOGLOBIN 24.5 pg (25.0-35.0); MEAN CORPUSCULAR HGB CONC 30.6 g/dl (31.0-37.0); MEAN PLATELET VOLUME 8.8 fl (7.0-11.0); RBC 3.23 10^6/uL (3.5-6.1); RED CELL DISTRIBUTION WIDTH 16.5 % (11.5-14.5); WHITE BLOOD COUNT 9.2 10^3/uL (4.5-11.0)
[2018-04-21 08:10] LABS: ALB/GLOB RATIO 0.7 (1.1-1.8); ALBUMIN 2.4 g/dL (3.0-4.8); ALT/SGPT 38 U/L (7-56); AST/SGOT 53 U/L (17-59); BLOOD UREA NITROGEN 21 mg/dL (7-21); CALCIUM 8.2 mg/dL (8.4-10.5); GFR NON-AFRICAN AMERICAN > 60
--- NOTE | 2018-04-21 09:52 | PN ---
DATE: 04/21/2018 SUBJECTIVE: The patient is in bed in no acute distress, nontoxic. PHYSICAL EXAMINATION: VITAL SIGNS: Temperature is 98, blood pressure is 100/40, respiratory rate of 18. HEENT: Examination of HEENT is unremarkable. NECK: Supple. LUNGS: Have decreased breath sounds. HEART: Normal S1, S2. ABDOMEN: Soft. LABORATORY EXAMINATION: Reveals a white count of 9.2, hemoglobin of 7.9. Chemistries are noted. BUN of 21, creatinine of 0.6, procalcitonin 0.28 and microbiology reveals the patient's decubitus culture is gram-negative vic. Urine cultures gram-negative vic and another urine cultures have yeast. The blood cultures have no growth. ASSESSMENT AND PLAN: A 72-year-old male with atrial fibrillation, recent hospitalization, chronic obstructive lung disease, dementia, transient ischemic attack, cerebrovascular accident, right-sided weakness, throat cancer, history of extended-spectrum beta-lactamase, admitted with systemic inflammatory response syndrome, multiple ulcers in sacrum, multiple bilateral hip ulcer and feet ulcers, on day #3 of vancomycin and meropenem with gram-negative rods in the cultures and urine with yeast. The patient's white count is down to 9.2. Day #3 of antibiotics.. Overall prognosis is quite poor. Efra Craig MD
[2018-04-21] MEDS: POLYETHYLENE GLYCOL 3350 17 GM/Dose PACKET PEG SCH ×2 (12:28→17:28)
[2018-04-21] MEDS: levETIRAcetam 500 mg/5ml UD cups PEG SCH ×2 (12:29→22:34)
[2018-04-21] MEDS: Magnesium Oxide 400 mg Tab UD PEG SCH ×2 (12:29→17:27)
[2018-04-21] MEDS: Vancomycin 1gm in NS 250ml 1 GM/250 ML BAG IVPB SCH (12:30)
--- NOTE | 2018-04-22 00:44 | PN ---
DATE: 04/21/2018 SUBJECTIVE: Patient is a 72-year-old male. Patient was seen and examined at the bedside on 04/21/2018, looking comfortable. No change of the status. No shortness of breath. No nausea, vomiting, diarrhea. No hematuria or hematochezia. No headache. No dizziness. No chest pain or palpitation. No fever. No chills. PHYSICAL EXAMINATION VITAL SIGNS: Temperature 98.2, pulse 116, blood pressure 100/56, respiratory rate 18. HEENT: Head: Normocephalic, atraumatic. Eyes: PERRLA. Extraocular muscles are intact. Conjunctivae clear. Nose patent. NECK: Supple. No carotid bruit. No JVD or thyromegaly. CHEST: Bilaterally symmetrical. HEART: S1 and S2 positive. LUNGS: Clear to auscultation. ABDOMEN: Soft. Bowel sounds present. No organomegaly. EXTREMITIES: Trace edema. Has multiple decubitus ulcers. NEUROLOGICAL: Patient is awake, alert, follows simple commands. MEDICATIONS: Bactroban, Eliquis, ferrous gluconate, Keppra, Lopressor, magnesium oxide, Merrem, MiraLax, Pepcid, Silvadene cream. LABORATORY DATA: White blood cells 9.2, hemoglobin 7.9, hematocrit 25.8, platelets 459,000. Sodium 139, potassium 4.1, BUN 21, creatinine 0.6, glucose 8.2. ASSESSMENT AND PLAN: Mr. Geo Ewing 72-year-old male, with anemia; thrombocytosis; hyperchloremia; hypocalcemia; iron deficiency; abnormal liver function test; low albumin; proteinuria; hematuria; urinary tract infection; has history of atrial fibrillation, on Eliquis; chronic obstructive lung disease; dementia; transient ischemic attack; cerebrovascular accident; right-sided weakness; throat cancer; history of extended-spectrum beta-lactamase; admitted for systemic inflammatory response syndrome; multiple ulcers in sacral area; multiple bilateral hip ulcers and feet ulcers, day 3 of vancomycin and meropenem; gram-negative rods in the culture and urine with yeast. The patient's white blood cell is coming down, day 3 of antibiotics. Overall, prognosis is poor. Appreciated Dr. Craig's input. Repeat labs. We will follow up. Mariana Fernandez MD [facility] # [id number]
[2018-04-22] MEDS: Meropenem IV 1 gm in NS 1 GM/50 ML BAG IVPB SCH ×3 (05:09→22:57)
[2018-04-22] MEDS: Magnesium Oxide 400 mg Tab UD PEG SCH ×2 (10:43→18:08)
[2018-04-22] MEDS: levETIRAcetam 500 mg/5ml UD cups PEG SCH ×2 (10:44→22:57)
[2018-04-22] MEDS: POLYETHYLENE GLYCOL 3350 17 GM/Dose PACKET PEG SCH ×2 (10:45→18:08)
[2018-04-22] MEDS: Mupirocin 2% Ointment 15 GM TUBE TOP SCH ×2 (10:50→17:59)
[2018-04-22] MEDS: Vancomycin 1gm in NS 250ml 1 GM/250 ML BAG IVPB SCH (10:51)
[2018-04-22] MEDS: Silver Sulfadiazine 1% Cream (25 gm) TP SCH ×2 (10:51→18:00)
[2018-04-22] MEDS: Collagenase 250 Units/gm Ointment(30 gm) TOP SCH (10:51)
--- NOTE | 2018-04-22 13:04 | PN ---
DATE: 04/22/2018 SUBJECTIVE: The patient is in bed, in no acute distress, nontoxic. PHYSICAL EXAMINATION: VITAL SIGNS: Temperature is 98, blood pressure is 140/80 and respiratory rate of 18. HEENT: Unremarkable. NECK: Supple. LUNGS: Have decreased breath sound. HEART: Normal S1 and S2. ABDOMEN: Soft. LABORATORY EXAMINATION: Reveals a white count of 9.2 and hemoglobin of 7. Chemistries are noted. Microbiology is noted. ASSESSMENT AND PLAN: This is 72-year-old male with atrial fibrillation, recent hospitalization, chronic obstructive lung disease, dementia, transient ischemic attack, cerebrovascular accident, right-sided weakness, throat cancer, history of extended-spectrum beta-lactamase, admitted with systemic inflammatory response syndrome, multiple ulcers in the sacrum, multiple bilateral hip ulcers, bilateral feet ulcers; currently on vancomycin and meropenem day #4 with pseudomonas grown from the left hip, pseudomonas grown from the urine and blood cultures have no growth, initial urine cultures have yeast, but it was light growth. White count is now down to 9200. Dr. Fernandez's note is reviewed. Would complete a short course of antibiotics in 5-7 days, overall prognosis quite poor. Efra Craig MD
[2018-04-22] MEDS: Sodium Chloride 0.9% 1,000 ML IV SCH (14:29)
[2018-04-22] MEDS: Acetaminophen 650mg/20.3ml solution UD PEG PRN (18:04)
--- NOTE | 2018-04-22 19:18 | PN ---
DATE: 04/22/2018 SUBJECTIVE: The patient is a 72-year-old male. The patient was seen and examined at the bedside on 04/22/2018, looking comfortable. Actually, no change in the status. No fever. No chills. No nausea, vomiting, or diarrhea. in no acute distress, nontoxic. PHYSICAL EXAMINATION: VITAL SIGNS: Temperature 98, heart rate 80, respiratory rate 18, and blood pressure 140/80. HEENT: Head: Normocephalic, atraumatic. Eyes: PERRLA. Extraocular muscles are intact. Conjunctivae pale. Nose patent. Mucous membrane moist. NECK: Supple. No carotid bruit. No thyromegaly. CHEST: Bilaterally symmetrical. HEART: S1 and S2 positive. LUNGS: Clear to auscultation. ABDOMEN: Soft. Bowel sounds present. No organomegaly. EXTREMITIES: No edema, no cyanosis. NEUROLOGICAL: The patient is sleepy, is not able to follow command today. MEDICATIONS: Bactroban, Eliquis, ferrous gluconate, Keppra, Lopressor, magnesium oxide, meropenem, MiraLax, Pepcid, vancomycin, and Tylenol. ASSESSMENT AND PLAN: Mr. Kaylin Guardado is a 72-year-old male, with history of atrial fibrillation, chronic obstructive lung disease, dementia, transient ischemic attack, cerebrovascular accident, right-sided weakness, history of throat cancer, history or extended-spectrum beta-lactamase, systemic inflammatory response syndrome; multiple ulcers in the sacral area at different stages, multiple bilateral hip ulcers, bilateral feet ulcer, currently on vancomycin and meropenem day 4 with pseudomonas grown of around the left hip and urine and blood cultures had no growth. His urine culture had yeast. Dr. Craig is trying to complete a course of antibiotics 5 to 7 days. Overall, prognosis is poor. Family is noted at bed side . Continue antibiotics at beside. Physical therapy changing the patient's position. We will follow up. Mariana Fernandez MD [facility]
[2018-04-23] MEDS: Sodium Chloride 0.9% 1,000 ML IV SCH ×2 (03:47→03:50)
[2018-04-23] MEDS: Meropenem IV 1 gm in NS 1 GM/50 ML BAG IVPB SCH ×3 (05:29→22:30)
--- NOTE | 2018-04-23 08:21 | PN ---
DATE: 04/20/2018 SUBJECTIVE: The patient is a 72-year-old male. The patient was seen and examined at the bedside on 04/20/2018. Looking comfortable. No nausea, vomiting, or diarrhea. No hematuria or hematochezia. No change in the status. PHYSICAL EXAMINATION: VITAL SIGNS: Temperature 98, pulse 116, blood pressure 102/61, respiratory rate 18. HEENT: Head is normocephalic and atraumatic. Eyes PERRLA. Extraocular muscles intact. Conjunctivae clear. Nose patent. Mucous membranes moist. NECK: Supple. No carotid bruits, JVD or thyromegaly. CHEST: Bilaterally symmetrical. HEART: S1 and S2 positive. LUNGS: Clear to auscultation. ABDOMEN: Soft. Bowel sounds present. No organomegaly. EXTREMITIES: No edema. No cyanosis. NEUROLOGIC: The patient is awake and alert. Moving all four. Obeying simple orders. MEDICATIONS: Bactroban, Eliquis, Fergon, Keppra, magnesium , Merrem. LABORATORY DATA: White blood cells 9.6, hemoglobin 8.5, hematocrit 27.4. Sodium 140, potassium 4, BUN 21, creatinine 0.8, calcium 8.3. ASSESSMENT AND PLAN: The patient is a 72-year-old with hypocalcemia, abnormal liver function tests, hyperalbuminemia, hyperchloremia, leucocytosis, anemia, proteinuria, hematuria, urinary tract infection. Has multiple decubitus ulcers at different stages at different places, getting intravenous antibiotics as per Infectious Disease, Dr. Craig. History of atrial fibrillation, recent hospitalization, chronic obstructive lung disease, dementia, transient ischemic attack, cerebrovascular accident with right-sided weakness, history of throat cancer, Admitted for systemic inflammatory response syndrome. The patient is getting antibiotics. Gastrointestinal and deep venous thrombosis prophylaxis. Repeat labs. We will follow up. Mariana Fernandez MD [facility]
[2018-04-23] MEDS: Vancomycin 1gm in NS 250ml 1 GM/250 ML BAG IVPB SCH (09:23)
[2018-04-23] MEDS: levETIRAcetam 500 mg/5ml UD cups PEG SCH ×2 (09:24→22:31)
[2018-04-23] MEDS: POLYETHYLENE GLYCOL 3350 17 GM/Dose PACKET PEG SCH ×2 (09:24→18:51)
[2018-04-23] MEDS: Magnesium Oxide 400 mg Tab UD PEG SCH ×2 (09:24→18:51)
[2018-04-23] MEDS: Silver Sulfadiazine 1% Cream (25 gm) TP SCH ×2 (09:26→18:53)
[2018-04-23] MEDS: Collagenase 250 Units/gm Ointment(30 gm) TOP SCH (09:26)
[2018-04-23] MEDS: Mupirocin 2% Ointment 15 GM TUBE TOP SCH ×2 (09:27→18:53)
[2018-04-23 10:15] LABS: HEMOGLOBIN 9.6 g/dL (14.0-18.0); MEAN CELL VOLUME 79.3 fl (80.0-105.0); MEAN CORPUSCULAR HEMOGLOBIN 24.5 pg (25.0-35.0); MEAN CORPUSCULAR HGB CONC 30.9 g/dl (31.0-37.0); MEAN PLATELET VOLUME 8.4 fl (7.0-11.0); RBC 3.92 10^6/uL (3.5-6.1); RED CELL DISTRIBUTION WIDTH 16.5 % (11.5-14.5); WHITE BLOOD COUNT 8.7 10^3/uL (4.5-11.0)
[2018-04-23 10:23] LABS: BLOOD UREA NITROGEN 18 mg/dL (7-21); CALCIUM 8.2 mg/dL (8.4-10.5); GFR NON-AFRICAN AMERICAN > 60
--- NOTE | 2018-04-23 11:18 | CP.PCM.PN ---
<Rosendo Aguilera - Last Filed: 04/23/18 12:54> Subjective - Date & Time of Evaluation Date of Evaluation: 04/23/18 Time of Evaluation: 10:59 - Subjective Subjective: Podiatry progress note for attending Dr. Herndon, 72 y/o male patient seen and evaluated at bedside for multiple bilateral lower extremity wounds/blood blisters. Patient was alert during evaluation. As per his chart no overnight events. Patient is a poor historian. Patient was in pain during his dressing change. Patient is not wearing multipodus boots when evalua negrita Objective - Vital Signs/Intake and Output Vital Signs (last 24 hours): Temp Pulse Resp BP Pulse Ox 98 F 98 H 18 150/61 99 04/23/18 06:00 04/23/18 09:23 04/23/18 06:00 04/23/18 09:23 04/23/18 06:00 Intake and Output: 04/23/18 04/23/18 06:59 18:59 Output Total 2300 Balance -2300 - Medications Medications: Current Medications Acetaminophen (Tylenol 650mg/20.3ml Solution Ud) 650 mg PEG Q6H PRN PRN Reason: Pain, Mild (1-3) Last Admin: 04/22/18 18:04 Dose: 650 mg Apixaban (Eliquis) 5 mg PEG BID [facility]; Protocol Last Admin: 04/23/18 09:24 Dose: 5 mg Collagenase (Santyl) 1 gm TOP DAILY [facility] Last Admin: 04/23/18 09:26 Dose: 1 applic Famotidine (Pepcid) 40 mg PEG HS [facility] Last Admin: 04/22/18 22:58 Dose: 40 mg Ferrous Gluconate (Fergon) 324 mg PO TID [facility] Last Admin: 04/23/18 09:24 Dose: 324 mg Sodium Chloride (Sodium Chloride 0.9%) 1,000 mls @ 100 mls/hr IV .Q10H [facility] Last Admin: 04/23/18 03:50 Dose: 100 mls/hr Vancomycin HCl (Vancomycin 1gm) 1 gm in 250 mls @ 167 mls/hr IVPB DAILY [facility]; Protocol Stop: 04/28/18 10:01 Last Admin: 04/23/18 09:23 Dose: 167 mls/hr Meropenem (Merrem Iv 1 Gm Premix) 1 gm in 50 mls @ 100 mls/hr IVPB Q8 [facility]; Protocol Last Admin: 04/23/18 05:29 Dose: 100 mls/hr Levetiracetam (Keppra) 500 mg PEG Q12 [facility] Last Admin: 04/23/18 09:24 Dose: 500 mg Magnesium Oxide (Mag-Ox) 400 mg PEG BID [facility] Last Admin: 04/23/18 09:24 Dose: 400 mg Metoprolol Tartrate (Lopressor) 100 mg PEG BID [facility] Last Admin: 04/23/18 09:23 Dose: 100 mg Mupirocin (Bactroban Ointment) 1 gm TOP BID [facility] Last Admin: 04/23/18 09:27 Dose: 1 applic Polyethylene Glycol (Miralax) 17 gm PEG BID [facility] Last Admin: 04/23/18 09:24 Dose: 17 gm Silver Sulfadiazine (Silvadene 1% 25 Gm) 1 gm TP BID [facility] Last Admin: 04/23/18 09:26 Dose: 1 gm - Labs Labs: 04/23/18 10:00 04/23/18 10:00 PT 16.5 SECONDS (9.4-12.5) H 04/13/18 10:50 INR 1.42 04/13/18 10:50 APTT 28.7 Seconds (25.1-36.5) 04/13/18 10:50 - Constitutional Appears: Well, Non-toxic, No Acute Distress - Head Exam Head Exam: ATRAUMATIC, NORMOCEPHALIC - Extremities Exam Additional comments: LE focused exam: Vasc: DP/PT pulses faintly palpable 1/4 b/l. Skin temperature warm to warm from proximal to distal. Cap refill < 3 seconds to all digits b/l. No edema noted b/l Neuro: unable to assess. Patient is not cooperative Derm: R- multiple areas of superficial skin wounds noted thigh and the foot, no malodor, no drainage, no clinical signs of infection L- multiple areas of pressure hematomas noted to the lateral aspect of the 5th digit and dorso-lateral aspect of the foot along with a heel ulceration, No erythema, malodor, drainage, tracking, tunneling, undermining, probe to bone, or other clinical signs of infection noted MSK: Minimal tenderness on palpation to left heel. Rigid contracture of all digits 1-5 b/l. Otherwise, no gross deformities noted. Unable to assess muscle strength secondary to patient mental status. Pain with attempt to change the patient position to change the dressing - Neurological Exam Neurological Exam: Alert, Awake, Oriented x3 - Psychiatric Exam Psychiatric exam: Normal Affect, Normal Mood Assessment and Plan - Assessment and Plan (Free Text) Assessment: 72 y/o male patient seen and evaluated for bilateral lower extremity wounds Plan: Patient seen and evaluated at the bedside Plans discussed with Dr. Herndon Chart, labs and vitals were all reviewed- afebrile, absent leukocytosis Right Lower Extremity Wounds- Exuderm patches applied to lower leg and foot, optiofoam applied to thigh wounds Left Lower Extremity Wounds- dry sterile dressing to his left foot Multipodus boots for patient, to continue being worn at all times Podiatry will change dressings every MWF and will continue to follow up the patient while in house <Mona Herndon - Last Filed: 04/26/18 07:56> Objective - Vital Signs/Intake and Output Vital Signs (last 24 hours): Temp Pulse Resp BP Pulse Ox 99.5 F 115 H 20 91/55 L 99 04/25/18 22:08 04/25/18 22:08 04/25/18 22:08 04/25/18 22:08 04/25/18 22:08 Intake and Output: 04/26/18 04/26/18 06:59 18:59 Intake Total 650 Output Total 925 Balance -275 - Medications Medications: Current Medications Acetaminophen (Tylenol 650mg/20.3ml Solution Ud) 650 mg PEG Q6H PRN PRN Reason: Pain, Mild (1-3) Last Admin: 04/22/18 18:04 Dose: 650 mg Apixaban (Eliquis) 5 mg PEG BID [facility]; Protocol Last Admin: 04/25/18 17:59 Dose: 5 mg Collagenase (Santyl) 1 gm TOP DAILY [facility] Last Admin: 04/25/18 10:47 Dose: 1 applic Famotidine (Pepcid) 40 mg PEG HS [facility] Last Admin: 04/25/18 23:09 Dose: 40 mg Ferrous Gluconate (Fergon) 324 mg PO TID [facility] Last Admin: 04/25/18 17:59 Dose: 324 mg Sodium Chloride (Sodium Chloride 0.9%) 1,000 mls @ 100 mls/hr IV .Q10H [facility] Last Admin: 04/23/18 03:50 Dose: 100 mls/hr Vancomycin HCl (Vancomycin 1gm) 1 gm in 250 mls @ 167 mls/hr IVPB DAILY [facility]; Protocol Stop: 04/28/18 10:01 Last Admin: 04/25/18 10:44 Dose: 167 mls/hr Meropenem (Merrem Iv 1 Gm Premix) 1 gm in 50 mls @ 100 mls/hr IVPB Q8 [facility]; Pro tocol Last Admin: 04/26/18 05:21 Dose: 100 mls/hr Levetiracetam (Keppra) 500 mg PEG Q12 [facility] Last Admin: 04/25/18 23:09 Dose: 500 mg Magnesium Oxide (Mag-Ox) 400 mg PEG BID [facility] Last Admin: 04/25/18 17:59 Dose: 400 mg Metoprolol Tartrate (Lopressor) 100 mg PEG BID [facility] Last Admin: 04/25/18 18:00 Dose: 100 mg Mupirocin (Bactroban Ointment) 1 gm TOP BID [facility] Last Admin: 04/25/18 18:01 Dose: Not Given Polyethylene Glycol (Miralax) 17 gm PEG BID [facility] Last Admin: 04/25/18 17:59 Dose: 17 gm Silver Sulfadiazine (Silvadene 1% 25 Gm) 1 gm TP BID [facility] Last Admin: 04/25/18 18:01 Dose: Not Given - Labs Labs: 04/24/18 07:00 04/24/18 07:00 PT 16.5 SECONDS (9.4-12.5) H 04/13/18 10:50 INR 1.42 04/13/18 10:50 APTT 28.7 Seconds (25.1-36.5) 04/13/18 10:50 Attending/Attestation - Attestation I have personally seen and examined this patient.: Yes I have fully participated in the care of the patient.: Yes I have reviewed all pertinent clinical information, including history, physical exam and plan: Yes
--- NOTE | 2018-04-23 12:36 | CP.PCM.PN ---
Subjective - Date & Time of Evaluation Date of Evaluation: 04/23/18 Time of Evaluation: 08:55 - Subjective Subjective: No fevers, not in distress. Objective - Vital Signs/Intake and Output Vital Signs (last 24 hours): Temp Pulse Resp BP Pulse Ox 98 F 114 H 18 150/61 99 04/23/18 06:00 04/23/18 06:00 04/23/18 06:00 04/23/18 06:00 04/23/18 06:00 Intake and Output: 04/23/18 04/23/18 06:59 18:59 Output Total 2300 Balance -2300 - Medications Medications: Current Medications Acetaminophen (Tylenol 650mg/20.3ml Solution Ud) 650 mg PEG Q6H PRN PRN Reason: Pain, Mild (1-3) Last Admin: 04/22/18 18:04 Dose: 650 mg Apixaban (Eliquis) 5 mg PEG BID [facility]; Protocol Last Admin: 04/22/18 18:08 Dose: 5 mg Collagenase (Santyl) 1 gm TOP DAILY [facility] Last Admin: 04/22/18 10:51 Dose: 1 applic Famotidine (Pepcid) 40 mg PEG HS [facility] Last Admin: 04/22/18 22:58 Dose: 40 mg Ferrous Gluconate (Fergon) 324 mg PO TID [facility] Last Admin: 04/22/18 18:00 Dose: 324 mg Sodium Chloride (Sodium Chloride 0.9%) 1,000 mls @ 100 mls/hr IV .Q10H [facility] Last Admin: 04/23/18 03:50 Dose: 100 mls/hr Vancomycin HCl (Vancomycin 1gm) 1 gm in 250 mls @ 167 mls/hr IVPB DAILY [facility]; Protocol Stop: 04/28/18 10:01 Last Admin: 04/22/18 10:51 Dose: 167 mls/hr Meropenem (Merrem Iv 1 Gm Premix) 1 gm in 50 mls @ 100 mls/hr IVPB Q8 [facility]; Protocol Last Admin: 04/23/18 05:29 Dose: 100 mls/hr Levetiracetam (Keppra) 500 mg PEG Q12 [facility] Last Admin: 04/22/18 22:57 Dose: 500 mg Magnesium Oxide (Mag-Ox) 400 mg PEG BID [facility] Last Admin: 11/25/18 18:08 Dose: 400 mg Metoprolol Tartrate (Lopressor) 100 mg PEG BID [facility] Last Admin: 04/22/18 18:06 Dose: 100 mg Mupirocin (Bactroban Ointment) 1 gm TOP BID COUNT INCLUDES [facility] Last Admin: 04/22/18 17:59 Dose: 1 applic Polyethylene Glycol (Miralax) 17 gm PEG BID COUNT [facility]CLUDES [facility] Last Admin: 04/22/18 18:08 Dose: 17 gm Silver Sulfadiazine (Silvadene 1% 25 Gm) 1 gm TP BID COUNT [facility]CLUDES [facility] Last Admin: 04/22/18 18:00 Dose: 1 gm - Labs Labs: 04/21/18 07:00 04/21/18 07:00 PT 16.5 SECONDS (9.4-12.5) H 04/13/18 10:50 INR 1.42 04/13/18 10:50 APTT 28.7 Seconds (25.1-36.5) 04/13/18 10:50 - Constitutional Appears: Chronically Ill - Head Exam Head Exam: NORMAL INSPECTION - Respiratory Exam Respiratory Exam: Decreased Breath Sounds - Cardiovascular Exam Cardiovascular Exam: +S1, +S2 - GI/Abdominal Exam GI & Abdominal Exam: Soft. absent: Tenderness Assessment and Plan - Assessment and Plan (Free Text) Plan: Assessment systemic inflammatory response syndrome due to multiple sacral ulcers, growing Pseudomonas history of sepsis due to right lower lobe HCAP with ESBL E. coli left hip wound infection HTN COPD atrial fibrillation throat cancer dementia history of CVA of left frontal lobe liver cirrhosis Plan continue Vancomycin and Merrem day 5 (of 5-7 days) overall prognosis is poor
--- NOTE | 2018-04-24 04:04 | PN ---
DATE: 04/23/2018 SUBJECTIVE: The patient is a 72-year-old male. The patient was seen and examined at bedside on 04/23/2018. Looking comfortable. No change in the status. No fever. No chills. No nausea, vomiting, or diarrhea. No hematuria or hematochezia. No swelling of the legs. No chest pain or palpitation. PHYSICAL EXAMINATION: VITAL SIGNS: Temperature 98, pulse 114, respirations 18, blood pressure 160/65, and pulse oximetry 99. HEENT: Head: Normocephalic and atraumatic. Eyes: PERRLA. Extraocular muscles are intact. Conjunctivae clear. Nose patent. NECK: Supple. No carotid bruits, JVD, or thyromegaly. CHEST: Bilaterally symmetrical. HEART: S1 and S2 positive. LUNGS: Clear to auscultation. ABDOMEN: Soft. Bowel sounds present. No organomegaly. EXTREMITIES: Trace edema. Multiple decubitus ulcers. MEDICATIONS: Eliquis, Pepcid, iron, NS, vancomycin, Merrem, Keppra, magnesium oxide, metoprolol, glycol. LABORATORY DATA: White blood cell 9.2, hemoglobin 7.9, hematocrit 25.8, platelets 459,000. Sodium 139, potassium 4.1, BUN 21, creatinine 0.6, glucose 87. ASSESSMENT AND PLAN: Mr. Geo Ewing is a 72-year-old male with anemia, thrombocytosis, hyperchloremia, systemic inflammatory response syndrome due to multiple sacral ulcers, growing Pseudomonas, history of sepsis due to right lower lobe healthcare-associated pneumonia with extended-spectrum beta-lactamase Escherichia coli, left hip wound infection, hypertension, chronic obstructive pulmonary disease, atrial fibrillation, throat cancer, dementia, history of cerebrovascular accident , cirrhosis of the liver. Continue vancomycin as per Infectious Disease. Overall prognosis is poor. Wound care team is on the case. Infectious Disease on the case. Waiting for placement. We will follow up. Mariana Fernandez MD [facility] CENTERJaclyn
[2018-04-24] MEDS: Meropenem IV 1 gm in NS 1 GM/50 ML BAG IVPB SCH ×3 (05:49→21:43)
[2018-04-24 07:21] LABS: HEMOGLOBIN 9.3 g/dL (14.0-18.0); MEAN CORPUSCULAR HEMOGLOBIN 24.7 pg (25.0-35.0); MEAN CORPUSCULAR HGB CONC 31.6 g/dl (31.0-37.0); MEAN PLATELET VOLUME 8.4 fl (7.0-11.0); RBC 3.77 10^6/uL (3.5-6.1); RED CELL DISTRIBUTION WIDTH 16.8 % (11.5-14.5); WHITE BLOOD COUNT 10.7 10^3/uL (4.5-11.0)
[2018-04-24 07:36] LABS: BLOOD UREA NITROGEN 20 mg/dL (7-21); CALCIUM 8.3 mg/dL (8.4-10.5); GFR NON-AFRICAN AMERICAN > 60
[2018-04-24] MEDS: Mupirocin 2% Ointment 15 GM TUBE TOP SCH (11:13)
[2018-04-24] MEDS: Collagenase 250 Units/gm Ointment(30 gm) TOP SCH (11:14)
[2018-04-24] MEDS: Silver Sulfadiazine 1% Cream (25 gm) TP SCH (11:15)
[2018-04-24] MEDS: Vancomycin 1gm in NS 250ml 1 GM/250 ML BAG IVPB SCH (11:20)
[2018-04-24] MEDS: Magnesium Oxide 400 mg Tab UD PEG SCH ×2 (11:21→18:22)
[2018-04-24] MEDS: POLYETHYLENE GLYCOL 3350 17 GM/Dose PACKET PEG SCH ×2 (11:21→18:23)
[2018-04-24] MEDS: levETIRAcetam 500 mg/5ml UD cups PEG SCH ×2 (11:21→21:44)
--- NOTE | 2018-04-24 11:40 | CP.PCM.PN ---
Subjective - Date & Time of Evaluation Date of Evaluation: 04/24/18 Time of Evaluation: 08:00 - Subjective Subjective: Clinical Care Coordination Note: Seen and examined pt at bedside. Responds to verbal and tactile stimuli. In no acute distress. Objective - Vital Signs/Intake and Output Vital Signs (last 24 hours): Temp Pulse Resp BP Pulse Ox 99.5 F 100 H 20 137/83 94 L 04/24/18 07:00 04/24/18 11:21 04/24/18 07:00 04/24/18 11:21 04/24/18 07:00 Intake and Output: 04/24/18 04/24/18 06:59 18:59 Output Total 900 Balance -900 - Medications Medications: Current Medications Acetaminophen (Tylenol 650mg/20.3ml Solution Ud) 650 mg PEG Q6H PRN PRN Reason: Pain, Mild (1-3) Last Admin: 04/22/18 18:04 Dose: 650 mg Apixaban (Eliquis) 5 mg PEG BID [facility]; Protocol Last Admin: 04/24/18 11:22 Dose: 5 mg Collagenase (Santyl) 1 gm TOP DAILY [facility] Last Admin: 04/24/18 11:14 Dose: 1 applic Famotidine (Pepcid) 40 mg PEG HS [facility] Last Admin: 04/23/18 22:30 Dose: 40 mg Ferrous Gluconate (Fergon) 324 mg PO TID [facility] Last Admin: 04/24/18 11:21 Dose: 324 mg Sodium Chloride (Sodium Chloride 0.9%) 1,000 mls @ 100 mls/hr IV .Q10H [facility] Last Admin: 04/23/18 03:50 Dose: 100 mls/hr Vancomycin HCl (Vancomycin 1gm) 1 gm in 250 mls @ 167 mls/hr IVPB DAILY [facility]; Protocol Stop: 04/28/18 10:01 Last Admin: 04/24/18 11:20 Dose: 167 mls/hr Meropenem (Merrem Iv 1 Gm Premix) 1 gm in 50 mls @ 100 mls/hr IVPB Q8 [facility]; Protocol Last Admin: 04/24/18 05:49 Dose: 100 mls/hr Levetiracetam (Keppra) 500 mg PEG Q12 [facility] Last Admin: 04/24/18 11:21 Dose: 500 mg Magnesium Oxide (Mag-Ox) 400 mg PEG BID [facility] Last Admin: 04/24/18 11:21 Dose: 400 mg Metoprolol Tartrate (Lopressor) 100 mg PEG BID [facility] Last Admin: 04/24/18 11:21 Dose: 100 mg Mupirocin (Bactroban Ointment) 1 gm TOP BID [facility] Last Admin: 04/24/18 11:13 Dose: 1 applic Polyethylene Glycol (Miralax) 17 gm PEG BID [facility] Last Admin: 04/24/18 11:21 Dose: 17 gm Silver Sulfadiazine (Silvadene 1% 25 Gm) 1 gm TP BID [facility] Last Admin: 04/24/18 11:15 Dose: 1 gm - Labs Labs: 04/24/18 07:00 04/24/18 07:00 PT 16.5 SECONDS (9.4-12.5) H 04/13/18 10:50 INR 1.42 04/13/18 10:50 APTT 28.7 Seconds (25.1-36.5) 04/13/18 10:50 - Constitutional Appears: No Acute Distress, Cachectic - Head Exam Head Exam: ATRAUMATIC, NORMAL INSPECTION, NORMOCEPHALIC - Eye Exam Eye Exam: Normal appearance, PERRL - ENT Exam ENT Exam: Normal Exam - Neck Exam Neck Exam: Normal Inspection - Respiratory Exam Respiratory Exam: Clear to Ausculation Bilateral, NORMAL BREATHING PATTERN - Cardiovascular Exam Cardiovascular Exam: Irregular Rhythm, +S1, +S2 - GI/Abdominal Exam GI & Abdominal Exam: Soft, Normal Bowel Sounds Additional comments: +feeding tube - Rectal Exam Rectal Exam: Deferred - Exam Additional comments: + patton draining clear mikal urine - Extremities Exam Additional comments: lower extremities contracted - Neurological Exam Neurological Exam: Awake - Skin Additional comments: multiple sacral ulcers Assessment and Plan - Assessment and Plan (Free Text) Assessment: pt is a 72 y.o. male with PMHx of HTN, COPD, afib, throat ca, dementia, CVA and liver cirrhosis who was brought in ED for evaluation of hallucinations. Today, pt responds to verbal and tactile stimuli. He is not in acute distress. ID on board for SIRS 2/2 multiple sacral ulcers growing pseudomonas - to complete Merrem and Vanco day 6 (of 5 to 7 days). Plan: C/W antibiotics per ID recs Turn and reposition q2h C/W local wound care Podiatry, Palliative, Surgery and ID on consult SW for discharge planning Will continue to follow clinically
--- NOTE | 2018-04-25 01:37 | PN ---
DATE: 04/24/2018 SUBJECTIVE: The patient is in bed, in no acute distress, nontoxic. PHYSICAL EXAMINATION VITAL SIGNS: Temperature is 98, blood pressure is 119/40, and respiratory rate of 18. HEENT: Unremarkable. NECK: Supple. LUNGS: Have decreased breath sounds. HEART: Normal S1 and S2. ABDOMEN: Soft and nontender. LABORATORY EXAMINATION: Noted and white count of 10,000, hemoglobin of 9, and platelets of 507,000. Chemistries reveal a BUN of 20 and creatinine of 0.6. Urinalysis is noted and microbiology is noted. Review of orders reveals the patient is on meropenem which requires renewal, which we will do so and the patient is also on vancomycin. ASSESSMENT AND PLAN: This is a 72-year-old with systemic inflammatory response syndrome, multiple sacral ulcers, growing Pseudomonas, history of sepsis in a patient with hypertension and chronic obstructive lung disease, atrial fibrillation, on vancomycin and meropenem day #6 with complete 5-7 days of antibiotics. We will follow closely with you Efra Craig MD
--- NOTE | 2018-04-25 05:10 | PN ---
DATE: 04/24/2018 SUBJECTIVE: The patient is a 72-year-old male. The patient was seen and examined at bedside on 04/24/2018. Looking comfortable, no big change of the status, responded to verbal and tactile stimuli, not in acute distress. PHYSICAL EXAMINATION: VITAL SIGNS: Temperature 98.5, pulse 100, respiratory rate 20, blood pressure 130/80, and pulse oximetry 94. HEENT: Head: Normocephalic and atraumatic. Eyes: PERRLA. Extraocular muscles are intact. Conjunctivae clear. Nose patent. Mucous membranes are moist. NECK: Supple. No carotid bruits. No JVD or thyromegaly. CHEST: Bilaterally symmetrical. HEART: S1 and S2 positive. LUNGS: Clear to auscultation. ABDOMEN: Soft. Bowel sounds present. No organomegaly. EXTREMITIES: No edema. No cyanosis. NEUROLOGIC: The patient is sleepy and arousable. SKIN: Has multiple decubitus ulcers on the extremities. MEDICATIONS: Eliquis, Santyl, Pepcid, ferrous gluconate, sodium chloride, vancomycin, Merrem, Keppra, magnesium oxide, Lopressor, MiraLax, Silvadene cream. LABORATORY DATA: White blood cell 10.7, hemoglobin 9.3, hematocrit 29.4, platelets 507. Sodium 132, potassium 4.1, BUN 17, creatinine 1.6, glucose 107. ASSESSMENT AND PLAN: Mr. Geo Ewing is a 72-year-old male with anemia, hyperglycemia, history of chronic obstructive pulmonary disease exacerbation, throat cancer, dementia, cerebrovascular accident , multiple sacral decubitus ulcer, growing Pseudomonas, to complete Merrem and vancomycin, day #6 of 5 to 7 days. patient's position every 2 hour, local wound care, Podiatry is on the case. Palliative team is trying to talk to the patient's daughter, Eladia. stock house worker working for discharge planning. The patient needs placement. Social workers are working. Meanwhile, continue present treatment. Repeat labs. We will follow up. Mariana Fernandez MD [facility]
[2018-04-25] MEDS: Meropenem IV 1 gm in NS 1 GM/50 ML BAG IVPB SCH ×3 (05:52→23:07)
[2018-04-25] MEDS: Magnesium Oxide 400 mg Tab UD PEG SCH ×2 (10:43→17:59)
[2018-04-25] MEDS: levETIRAcetam 500 mg/5ml UD cups PEG SCH ×2 (10:44→23:09)
[2018-04-25] MEDS: POLYETHYLENE GLYCOL 3350 17 GM/Dose PACKET PEG SCH ×2 (10:44→17:59)
[2018-04-25] MEDS: Vancomycin 1gm in NS 250ml 1 GM/250 ML BAG IVPB SCH (10:44)
[2018-04-25] MEDS: Silver Sulfadiazine 1% Cream (25 gm) TP SCH ×2 (10:45→18:01)
[2018-04-25] MEDS: Mupirocin 2% Ointment 15 GM TUBE TOP SCH ×2 (10:46→18:01)
[2018-04-25] MEDS: Collagenase 250 Units/gm Ointment(30 gm) TOP SCH (10:47)
--- NOTE | 2018-04-25 10:48 | CP.PCM.PN ---
Subjective - Date & Time of Evaluation Date of Evaluation: 04/25/18 Time of Evaluation: 10:45 - Subjective Subjective: Clinical Care Coordination Note: pt seen and examined at bedside. He denies any pain and states that he wanted to rest. Objective - Vital Signs/Intake and Output Vital Signs (last 24 hours): Temp Pulse Resp BP Pulse Ox 97.9 F 105 H 18 132/67 100 04/25/18 08:13 04/25/18 08:13 04/25/18 08:13 04/25/18 08:13 04/25/18 08:13 Intake and Output: 04/25/18 04/25/18 06:59 18:59 Output Total 1300 Balance -1300 - Medications Medications: Current Medications Acetaminophen (Tylenol 650mg/20.3ml Solution Ud) 650 mg PEG Q6H PRN PRN Reason: Pain, Mild (1-3) Last Admin: 04/22/18 18:04 Dose: 650 mg Apixaban (Eliquis) 5 mg PEG BID [facility]; Protocol Last Admin: 04/24/18 18:22 Dose: 5 mg Collagenase (Santyl) 1 gm TOP DAILY [facility] Last Admin: 04/24/18 11:14 Dose: 1 applic Famotidine (Pepcid) 40 mg PEG HS [facility] Last Admin: 04/24/18 21:44 Dose: 40 mg Ferrous Gluconate (Fergon) 324 mg PO TID [facility] Last Admin: 04/24/18 18:22 Dose: 324 mg Sodium Chloride (Sodium Chloride 0.9%) 1,000 mls @ 100 mls/hr IV .Q10H [facility] Last Admin: 04/23/18 03:50 Dose: 100 mls/hr Vancomycin HCl (Vancomycin 1gm) 1 gm in 250 mls @ 167 mls/hr IVPB DAILY [facility]; Protocol Stop: 04/28/18 10:01 Last Admin: 04/24/18 11:20 Dose: 167 mls/hr Meropenem (Merrem Iv 1 Gm Premix) 1 gm in 50 mls @ 100 mls/hr IVPB Q8 [facility]; Protocol Last Admin: 04/25/18 05:52 Dose: 100 mls/hr Levetiracetam (Keppra) 500 mg PEG Q12 [facility] Last Admin: 04/24/18 21:44 Dose: 500 mg Magnesium Oxide (Mag-Ox) 400 mg PEG BID [facility] Last Admin: 04/24/18 18:22 Dose: 400 mg Metoprolol Tartrate (Lopressor) 100 mg PEG BID [facility] Last Admin: 04/24/18 18:21 Dose: 100 mg Mupirocin (Bactroban Ointment) 1 gm TOP BID [facility] Last Admin: 04/24/18 11:13 Dose: 1 applic Polyethylene Glycol (Miralax) 17 gm PEG BID [facility] Last Admin: 04/24/18 18:23 Dose: 17 gm Silver Sulfadiazine (Silvadene 1% 25 Gm) 1 gm TP BID [facility] Last Admin: 04/24/18 11:15 Dose: 1 gm - Labs Labs: 04/24/18 07:00 04/24/18 07:00 PT 16.5 SECONDS (9.4-12.5) H 04/13/18 10:50 INR 1.42 04/13/18 10:50 APTT 28.7 Seconds (25.1-36.5) 04/13/18 10:50 - Constitutional Appears: Cachectic - Head Exam Head Exam: ATRAUMATIC, NORMAL INSPECTION - Eye Exam Eye Exam: Normal appearance, PERRL - ENT Exam ENT Exam: Normal Exam - Neck Exam Neck Exam: Normal Inspection - Respiratory Exam Respiratory Exam: Clear to Ausculation Bilateral, NORMAL BREATHING PATTERN - Cardiovascular Exam Cardiovascular Exam: Irregular Rhythm, +S1, +S2 - GI/Abdominal Exam Additional comments: + feeding tube - Rectal Exam Rectal Exam: Deferred - Extremities Exam Additional comments: + contracted, sanchez lower extremity wounds - Neurological Exam Neurological Exam: Alert, Awake - Skin Additional comments: multiple sacral ulcers Assessment and Plan - Assessment and Plan (Free Text) Assessment: pt is a 72 y.o. male with PMHx of HTN, COPD, afib, throat ca, dementia, CVA and liver cirrhosis who was brought in ED for evaluation of hallucinations. Today, pt responds to verbal and tactile stimuli. He denies any pain and states that he just wants to rest. ID on board for SIRS 2/2 multiple sacral ulcers growing pseudomonas - to complete Merrem and Vanco day 7 (of 5 to 7 days). Plan: C/W antibiotics per ID recs Turn and reposition q2h C/W local wound care Podiatry, Palliative, Surgery and ID on consult SW for discharge planning - pending NH placement Will continue to follow clinically
--- NOTE | 2018-04-25 15:43 | CP.PCM.PN ---
<WillyRosendo - Last Filed: 04/25/18 15:40> Subjective - Date & Time of Evaluation Date of Evaluation: 04/25/18 Time of Evaluation: 15:40 - Subjective Subjective: Podiatry progress note for attending Dr. Herndon, 72 y/o male patient seen and evaluated at bedside for multiple bilateral lower extremity wounds/blood blisters. Patient was awake during evaluation. As per his chart no overnight events. Patient is a poor historian. Patient was in pain during his dressing change. Patient is not wearing multipodus boots when evalua negrita. Patient in a contracted position Objective - Vital Signs/Intake and Output Vital Signs (last 24 hours): Temp Pulse Resp BP Pulse Ox 97.9 F 105 H 18 132/67 100 04/25/18 08:13 04/25/18 10:43 04/25/18 08:13 04/25/18 08:13 04/25/18 08:13 Intake and Output: 04/25/18 04/25/18 06:59 18:59 Output Total 1300 Balance -1300 - Medications Medications: Current Medications Acetaminophen (Tylenol 650mg/20.3ml Solution Ud) 650 mg PEG Q6H PRN PRN Reason: Pain, Mild (1-3) Last Admin: 04/22/18 18:04 Dose: 650 mg Apixaban (Eliquis) 5 mg PEG BID [facility]; Protocol Last Admin: 04/25/18 10:43 Dose: 5 mg Collagenase (Santyl) 1 gm TOP DAILY [facility] Last Admin: 04/25/18 10:47 Dose: 1 applic Famotidine (Pepcid) 40 mg PEG HS [facility] Last Admin: 04/24/18 21:44 Dose: 40 mg Ferrous Gluconate (Fergon) 324 mg PO TID [facility] Last Admin: 04/25/18 13:38 Dose: 324 mg Sodium Chloride (Sodium Chloride 0.9%) 1,000 mls @ 100 mls/hr IV .Q10H [facility] Last Admin: 04/23/18 03:50 Dose: 100 mls/hr Vancomycin HCl (Vancomycin 1gm) 1 gm in 250 mls @ 167 mls/hr IVPB DAILY [facility]; Protocol Stop: 04/28/18 10:01 Last Admin: 04/25/18 10:44 Dose: 167 mls/hr Meropenem (Merrem Iv 1 Gm Premix) 1 gm in 50 mls @ 100 mls/hr IVPB Q8 [facility]; Protocol Last Admin: 04/25/18 13:38 Dose: 100 mls/hr Levetiracetam (Keppra) 500 mg PEG Q12 [facility] Last Admin: 04/25/18 10:44 Dose: 500 mg Magnesium Oxide (Mag-Ox) 400 mg PEG BID [facility] Last Admin: 04/25/18 10:43 Dose: 400 mg Metoprolol Tartrate (Lopressor) 100 mg PEG BID [facility] Last Admin: 04/25/18 10:43 Dose: 100 mg Mupirocin (Bactroban Ointment) 1 gm TOP BID [facility] Last Admin: 04/25/18 10:46 Dose: 1 applic Polyethylene Glycol (Miralax) 17 gm PEG BID [facility] Last Admin: 04/25/18 10:44 Dose: 17 gm Silver Sulfadiazine (Silvadene 1% 25 Gm) 1 gm TP BID [facility] Last Admin: 04/25/18 10:45 Dose: 1 gm - Labs Labs: 04/24/18 07:00 04/24/18 07:00 PT 16.5 SECONDS (9.4-12.5) H 04/13/18 10:50 INR 1.42 04/13/18 10:50 APTT 28.7 Seconds (25.1-36.5) 04/13/18 10:50 - Constitutional Appears: Well, Non-toxic, No Acute Distress - Head Exam Head Exam: ATRAUMATIC, NORMOCEPHALIC - Extremities Exam Additional comments: LE focused exam: Vasc: DP/PT pulses faintly palpable 1/4 b/l. Skin temperature warm to warm from proximal to distal. Cap refill < 3 seconds to all digits b/l. No edema noted b/l Neuro: unable to assess. Patient is not cooperative Derm: R- multiple areas of superficial skin wounds noted thigh and the foot, no malodor, no drainage, no clinical signs of infection L- multiple areas of pressure blisters noted to the lateral aspect of the 5th digit and dorso-lateral aspect of the foot along with a heel ulceration, No erythema, malodor, drainage, tracking, tunneling, undermining, probe to bone, or other clinical signs of infection noted MSK: Minimal tenderness on palpation to left heel. Rigid contracture of all digits 1-5 b/l. Otherwise, no gross deformities noted. Unable to assess muscle strength secondary to patient mental status. Pain with attempt to change the patient position to change the dressing - Neurological Exam Neurological Exam: Awake - Psychiatric Exam Psychiatric exam: Normal Affect, Normal Mood Assessment and Plan - Assessment and Plan (Free Text) Assessment: 72 y/o male patient seen and evaluated for bilateral lower extremity wounds Plan: Patient seen and evaluated at the bedside Plans discussed with Dr. Herndon Chart, labs and vitals were all reviewed- afebrile, absent leukocytosis Right Lower Extremity Wounds- Exuderm discontinued at this time, optiofoam applied to all wounds Left Lower Extremity Wounds- optifoam applied to all wounds Multipodus boots recommended for patient, however, patient refuses to wear them at this time Podiatry will change dressings every MWF and will continue to follow up the patient while in house <Mona Herndon - Last Filed: 04/26/18 07:47> Objective - Vital Signs/Intake and Output Vital Signs (last 24 hours): Temp Pulse Resp BP Pulse Ox 99.5 F 115 H 20 91/55 L 99 04/25/18 22:08 04/25/18 22:08 04/25/18 22:08 04/25/18 22:08 04/25/18 22:08 Intake and Output: 04/26/18 04/26/18 06:59 18:59 Intake Total 650 Output Total 925 Balance -275 - Medications Medications: Current Medications Acetaminophen (Tylenol 650mg/20.3ml Solution Ud) 650 mg PEG Q6H PRN PRN Reason: Pain, Mild (1-3) Last Admin: 04/22/18 18:04 Dose: 650 mg Apixaban (Eliquis) 5 mg PEG BID [facility]; Protocol Last Admin: 04/25/18 17:59 Dose: 5 mg Collagenase (Santyl) 1 gm TOP DAILY [facility] Last Admin: 04/25/18 10:47 Dose: 1 applic Famotidine (Pepcid) 40 mg PEG HS [facility] Last Admin: 04/25/18 23:09 Dose: 40 mg Ferrous Gluconate (Fergon) 324 mg PO TID [facility] Last Admin: 04/25/18 17:59 Dose: 324 mg Sodium Chloride (Sodium Chloride 0.9%) 1,000 mls @ 100 mls/hr IV .Q10H [facility] Last Admin: 04/23/18 03:50 Dose: 100 mls/hr Vancomycin HCl (Vancomycin 1gm) 1 gm in 250 mls @ 167 mls/hr IVPB DAILY [facility]; Protocol Stop: 04/28/18 10:01 Last Admin: 04/25/18 10:44 Dose: 167 mls/hr Meropenem (Merrem Iv 1 Gm Premix) 1 gm in 50 mls @ 100 mls/hr IVPB Q8 [facility]; Protocol Last Admin: 04/26/18 05:21 Dose: 100 mls/hr Levetiracetam (Keppra) 500 mg PEG Q12 [facility] Last Admin: 04/25/18 23:09 Dose: 500 mg Magnesium Oxide (Mag-Ox) 400 mg PEG BID [facility] Last Admin: 04/25/18 17:59 Dose: 400 mg Metoprolol Tartrate (Lopressor) 100 mg PEG BID [facility] Last Admin: 04/25/18 18:00 Dose: 100 mg Mupirocin (Bactroban Ointment) 1 gm TOP BID [facility] Last Admin: 04/25/18 18:01 Dose: Not Given Polyethylene Glycol (Miralax) 17 gm PEG BID [facility] Last Admin: 04/25/18 17:59 Dose: 17 gm Silver Sulfadiazine (Silvadene 1% 25 Gm) 1 gm TP BID [facility] Last Admin: 04/25/18 18:01 Dose: Not Given - Labs Labs: 04/24/18 07:00 04/24/18 07:00 PT 16.5 SECONDS (9.4-12.5) H 04/13/18 10:50 INR 1.42 04/13/18 10:50 APTT 28.7 Seconds (25.1-36.5) 04/13/18 10:50 Attending/Attestation - Attestation I have personally seen and examined this patient.: Yes I have fully participated in the care of the patient.: Yes I have reviewed all pertinent clinical information, including history, physical exam and plan: Yes Notes (Text): 04/26/18 07:46 palliative care rendered
--- NOTE | 2018-04-25 16:26 | CP.PCM.PN ---
Subjective - Date & Time of Evaluation Date of Evaluation: 04/25/18 Time of Evaluation: 08:50 - Subjective Subjective: No fevers, not in distress. Objective - Vital Signs/Intake and Output Vital Signs (last 24 hours): Temp Pulse Resp BP Pulse Ox 97.9 F 105 H 18 132/67 100 04/25/18 08:13 04/25/18 08:13 04/25/18 08:13 04/25/18 08:13 04/25/18 08:13 Intake and Output: 04/25/18 04/25/18 06:59 18:59 Output Total 1300 Balance -1300 - Medications Medications: Current Medications Acetaminophen (Tylenol 650mg/20.3ml Solution Ud) 650 mg PEG Q6H PRN PRN Reason: Pain, Mild (1-3) Last Admin: 04/22/18 18:04 Dose: 650 mg Apixaban (Eliquis) 5 mg PEG BID [facility]; Protocol Last Admin: 04/24/18 18:22 Dose: 5 mg Collagenase (Santyl) 1 gm TOP DAILY [facility] Last Admin: 04/24/18 11:14 Dose: 1 applic Famotidine (Pepcid) 40 mg PEG HS [facility] Last Admin: 04/24/18 21:44 Dose: 40 mg Ferrous Gluconate (Fergon) 324 mg PO TID [facility] Last Admin: 04/24/18 18:22 Dose: 324 mg Sodium Chloride (Sodium Chloride 0.9%) 1,000 mls @ 100 mls/hr IV .Q10H [facility] Last Admin: 04/23/18 03:50 Dose: 100 mls/hr Vancomycin HCl (Vancomycin 1gm) 1 gm in 250 mls @ 167 mls/hr IVPB DAILY [facility]; Protocol Stop: 04/28/18 10:01 Last Admin: 04/24/18 11:20 Dose: 167 mls/hr Meropenem (Merrem Iv 1 Gm Premix) 1 gm in 50 mls @ 100 mls/hr IVPB Q8 [facility]; Protocol Last Admin: 04/25/18 05:52 Dose: 100 mls/hr Levetiracetam (Keppra) 500 mg PEG Q12 [facility] Last Admin: 04/24/18 21:44 Dose: 500 mg Magnesium Oxide (Mag-Ox) 400 mg PEG BID [facility] Last Admin: 11/27/18 18:22 Dose: 400 mg Metoprolol Tartrate (Lopressor) 100 mg PEG BID [facility] Last Admin: 04/24/18 18:21 Dose: 100 mg Mupirocin (Bactroban Ointment) 1 gm TOP BID [facility] Last Admin: 04/24/18 11:13 Dose: 1 applic Polyethylene Glycol (Miralax) 17 gm PEG BID [facility] Last Admin: 04/24/18 18:23 Dose: 17 gm Silver Sulfadiazine (Silvadene 1% 25 Gm) 1 gm TP BID [facility] Last Admin: 04/24/18 11:15 Dose: 1 gm - Labs Labs: 04/24/18 07:00 04/24/18 07:00 PT 16.5 SECONDS (9.4-12.5) H 04/13/18 10:50 INR 1.42 04/13/18 10:50 APTT 28.7 Seconds (25.1-36.5) 04/13/18 10:50 - Constitutional Appears: Chronically Ill - Head Exam Head Exam: NORMAL INSPECTION - Respiratory Exam Respiratory Exam: Decreased Breath Sounds - Cardiovascular Exam Cardiovascular Exam: +S1, +S2 - GI/Abdominal Exam GI & Abdominal Exam: Soft. absent: Tenderness Assessment and Plan - Assessment and Plan (Free Text) Plan: Assessment systemic inflammatory response syndrome due to multiple sacral ulcers, growing Pseudomonas history of sepsis due to right lower lobe HCAP with ESBL E. coli left hip wound infection HTN COPD atrial fibrillation throat cancer dementia history of CVA of left frontal lobe liver cirrhosis Plan continue Vancomycin and Merrem day 7 (of 5-7 days) overall prognosis is poor
--- NOTE | 2018-04-26 00:14 | PN ---
DATE: 04/25/2018 SUBJECTIVE: The patient is a 72-year-old male. The patient was seen and examined at the bedside on 04/25/2018. No change in the status. No fever. No chills. No nausea, vomiting, or diarrhea. No hematuria or hematochezia. The patient is a poor historian. PHYSICAL EXAMINATION: VITAL SIGNS: Temperature 97.9, pulse 105, respiratory rate 18, blood pressure 130/67, pulse oximetry 100. HEENT: Head, normocephalic and atraumatic. Eyes PERRLA. Extraocular movements intact. Conjunctivae clear. Nose patent. Mucous membrane moist. NECK: Supple. No carotid bruit, JVD or thyromegaly. CHEST: Bilaterally symmetrical. HEART: S1 and S2 are positive. LUNGS: Clear to auscultation. ABDOMEN: Soft. Bowel sound present. No organomegaly. EXTREMITIES: No edema. No cyanosis. NEUROLOGIC: The patient was sleeping, arousable MEDICATIONS: Eliquis, collagenase, Pepcid, Fergon, NS, vancomycin, Merrem, Keppra, magnesium oxide, Lopressor, Bactroban, MiraLax, Silvadene. LABORATORY DATA: White blood cells 10.7, hemoglobin 9.2, hematocrit 29.4, platelets 517. Sodium 132, potassium 4.1, BUN 20, creatinine 0.6, glucose 107. ASSESSMENT AND PLAN: Mr. Geo Ewing is a 72-year-old male with anemia, hyperglycemia, renal insufficiency, multiple sacral decubitus ulcers, systemic inflammatory response syndrome with multiple sacral ulcers growing Pseudomonas, history of sepsis due to right lower lobe healthcare-associated pneumonia with extended-spectrum beta-lactamase Escherichia coli, left hip wound infection, hypertension, chronic obstructive pulmonary disease exacerbation, throat cancer, dementia, history of cerebrovascular accident with left weakness , liver cirrhosis. Continue vancomycin and Merrem. Overall prognosis is poor. Family has known about the patient's condition. Discussed with nurse practitioner and social workers. Working on further placement. We will follow up. Mariana Fernandez MD JAMES
[2018-04-26] MEDS: Meropenem IV 1 gm in NS 1 GM/50 ML BAG IVPB SCH (05:21)
--- NOTE | 2018-04-26 10:30 | PN ---
DATE: 04/26/2018 SUBJECTIVE: The patient is in bed, in no acute distress, nontoxic. PHYSICAL EXAMINATION: VITAL SIGNS: On exam, temperature is 99, blood pressure is 91/50, respiratory rate of 20, heart rate of 115. HEENT: Examination of HEENT is unremarkable. NECK: Supple. LUNGS: Have decreased breath sounds. HEART: Normal S1, S2. ABDOMEN: Soft, nontender. LABORATORY DATA: Laboratory examination reveals the white count is 10.7, hemoglobin of 9. Chemistries are noted. Urinalysis is noted. Microbiology is reviewed and review of orders reveals the patient to be on meropenem and vancomycin. ASSESSMENT AND PLAN: A 72-year-old male who was seen earlier this morning in room 570. He is awake and alert with systemic inflammatory response syndrome due to multiple sacral ulcers growing Pseudomonas in the face of history of sepsis with a right lower lobe healthcare-associated pneumonia in the past with extended-spectrum beta-lactamase from the left hip and wound infection, hypertension, history of throat cancer, dementia, cerebrovascular accident, liver cirrhosis, has completed 7 days of vancomycin, meropenem. We will discontinue the antibiotics at this point. The patient is at risk for developing nosocomial infections. Overall prognosis is poor for this patient, who is bedridden with minimal quality of life. Efra Craig MD
[2018-04-26] MEDS: levETIRAcetam 500 mg/5ml UD cups PEG SCH ×2 (10:54→23:17)
[2018-04-26] MEDS: POLYETHYLENE GLYCOL 3350 17 GM/Dose PACKET PEG SCH ×2 (10:54→17:39)
[2018-04-26] MEDS: Magnesium Oxide 400 mg Tab UD PEG SCH ×2 (10:55→17:39)
[2018-04-26] MEDS: Collagenase 250 Units/gm Ointment(30 gm) TOP SCH (10:55)
[2018-04-26] MEDS: Silver Sulfadiazine 1% Cream (25 gm) TP SCH ×2 (10:55→17:39)
[2018-04-26] MEDS: Mupirocin 2% Ointment 15 GM TUBE TOP SCH ×2 (10:55→17:40)
--- NOTE | 2018-04-27 02:46 | PN ---
DATE: 04/26/2018 SUBJECTIVE: The patient is a 72-year-old male. The patient was seen and examined at the bedside on 04/26/2018, looking comfortable. No change in the status. Seen by Infectious Disease. Awake, alert, in no acute distress. PHYSICAL EXAMINATION: VITAL SIGNS: Temperature 99, blood pressure 91/50, respiratory rate 20, heart rate 115. HEENT: Head, normocephalic and atraumatic. Eyes PERRLA. Extraocular movements intact. Conjunctivae clear. Nose patent. Mucous membranes moist. NECK: Supple. No carotid bruit, JVD or thyromegaly. LUNGS: Decreased breath sounds. HEART: Normal S1 and S2 are positive. ABDOMEN: Soft. Bowel sound present. No organomegaly. LABORATORY DATA: White blood cells 10.7, hemoglobin 9.2, hematocrit 29.4, platelets 507. Sodium 132, potassium 4.1, BUN 20, creatinine 0.6, calcium 8.3. ASSESSMENT AND PLAN: Mr. Geo Ewing is a 72-year-old male with history of leukocytosis, improved; anemia; thrombocytosis; renal insufficiency; hypocalcemia; abnormal liver function tests, improved; hematuria; urinary tract infection. Seen by Infectious Disease, Dr. Craig. Has systemic inflammatory response syndrome due to multiple sacral ulcers, slowly growing Pseudomonas, history of sepsis due to right lower lobe healthcare-associated pneumonia in the past with extended-spectrum beta-lactamase from the left hip and wound infection, hypertension, history of throat cancer, dementia, cerebrovascular accident, liver cirrhosis. Completed a course of antibiotics, vancomycin and meropenem. Discontinued the antibiotics by the Infectious Disease. Awaiting for transfer to [facility]. Prognosis is poor, family knows. Gastrointestinal and deep venous thrombosis prophylaxis. Repeat labs. We will follow up. Mariana Fernandez MD MTDD
[2018-04-27] MEDS: Magnesium Oxide 400 mg Tab UD PEG SCH ×2 (10:41→18:13)
[2018-04-27] MEDS: POLYETHYLENE GLYCOL 3350 17 GM/Dose PACKET PEG SCH ×2 (10:44→18:16)
[2018-04-27] MEDS: levETIRAcetam 500 mg/5ml UD cups PEG SCH ×2 (10:44→21:51)
[2018-04-27] MEDS: Mupirocin 2% Ointment 15 GM TUBE TOP SCH ×2 (10:45→18:16)
[2018-04-27] MEDS: Silver Sulfadiazine 1% Cream (25 gm) TP SCH ×2 (10:45→18:16)
[2018-04-27] MEDS: Collagenase 250 Units/gm Ointment(30 gm) TOP SCH (10:45)
--- NOTE | 2018-04-27 11:08 | CP.PCM.PN ---
<WillyRosendo - Last Filed: 04/27/18 11:06> Subjective - Date & Time of Evaluation Date of Evaluation: 04/27/18 Time of Evaluation: 11:07 - Subjective Subjective: Podiatry progress note for attending Dr. Montero, 72 y/o male patient seen and evaluated at bedside for multiple bilateral lower extremity wounds/blood blisters. Patient was awake during evaluation. As per his chart no overnight events. Patient is a poor historian. Patient was in pain during his dressing change. Patient is not wearing multipodus boots when evaluat ed. Patient in a contracted position Objective - Vital Signs/Intake and Output Vital Signs (last 24 hours): Temp Pulse Resp BP Pulse Ox 97.8 F 111 H 18 135/50 L 96 04/27/18 06:00 04/27/18 06:00 04/27/18 06:00 04/27/18 06:00 04/27/18 06:00 Intake and Output: 04/27/18 04/27/18 06:59 18:59 Output Total 300 Balance -300 - Medications Medications: Current Medications Acetaminophen (Tylenol 650mg/20.3ml Solution Ud) 650 mg PEG Q6H PRN PRN Reason: Pain, Mild (1-3) Last Admin: 04/22/18 18:04 Dose: 650 mg Apixaban (Eliquis) 5 mg PEG BID [facility]; Protocol Last Admin: 04/27/18 10:44 Dose: 5 mg Collagenase (Santyl) 1 gm TOP DAILY [facility] Last Admin: 04/27/18 10:45 Dose: 1 applic Famotidine (Pepcid) 40 mg PEG HS [facility] Last Admin: 04/26/18 23:17 Dose: 40 mg Ferrous Gluconate (Fergon) 324 mg PO TID [facility] Last Admin: 04/27/18 10:44 Dose: 324 mg Levetiracetam (Keppra) 500 mg PEG Q12 [facility] Last Admin: 04/27/18 10:44 Dose: 500 mg Magnesium Oxide (Mag-Ox) 400 mg PEG BID [facility] Last Admin: 04/27/18 10:41 Dose: 400 mg Metoprolol Tartrate (Lopressor) 100 mg PEG BID [facility] Last Admin: 04/27/18 10:45 Dose: 100 mg Mupirocin (Bactroban Ointment) 1 gm TOP BID [facility] Last Admin: 04/27/18 10:45 Dose: 1 applic Polyethylene Glycol (Miralax) 17 gm PEG BID [facility] Last Admin: 04/27/18 10:44 Dose: 17 gm Silver Sulfadiazine (Silvadene 1% 25 Gm) 1 gm TP BID [facility] Last Admin: 04/27/18 10:45 Dose: 1 gm - Labs Labs: 04/24/18 07:00 04/24/18 07:00 PT 16.5 SECONDS (9.4-12.5) H 04/13/18 10:50 INR 1.42 04/13/18 10:50 APTT 28.7 Seconds (25.1-36.5) 04/13/18 10:50 - Constitutional Appears: Well, Non-toxic, No Acute Distress - Head Exam Head Exam: ATRAUMATIC, NORMOCEPHALIC - Extremities Exam Additional comments: LE focused exam: Vasc: DP/PT pulses faintly palpable 1/4 b/l. Skin temperature warm to warm from proximal to distal. Cap refill < 3 seconds to all digits b/l. No edema noted b/l Neuro: unable to assess. Patient is not cooperative Derm: R- multiple areas of superficial skin wounds noted thigh and the foot, no malodor, no drainage, no clinical signs of infection L- multiple areas of pressure blisters noted to the lateral aspect of the 5th digit and dorso-lateral aspect of the foot along with a heel ulceration, No erythema, malodor, drainage, tracking, tunneling, undermining, probe to bone, or other clinical signs of infection noted MSK: Minimal tenderness on palpation to left heel. Rigid contracture of all digits 1-5 b/l. Otherwise, no gross deformities noted. Unable to assess muscle strength secondary to patient mental status. Pain with attempt to change the patient position to change the dressing - Neurological Exam Neurological Exam: Awake - Psychiatric Exam Psychiatric exam: Normal Affect, Normal Mood Assessment and Plan - Assessment and Plan (Free Text) Assessment: 72 y/o male patient seen and evaluated for bilateral lower extremity wounds Plan: Patient seen and evaluated at the bedside Plans discussed with Dr. Montero Chart, labs and vitals were all reviewed- afebrile, absent leukocytosis Right Lower Extremity Wounds- Exuderm discontinued at this time, optiofoam applied to all wounds Left Lower Extremity Wounds- optifoam applied to all wounds with DSD Multipodus boots recommended for patient, however, patient refuses to wear them at this time Podiatry will change dressings every MWF and will continue to follow up the patient while in house <Samuel Montero - Last Filed: 04/27/18 16:18> Objective - Vital Signs/Intake and Output Vital Signs (last 24 hours): Temp Pulse Resp BP Pulse Ox 97.8 F 111 H 18 135/50 L 96 04/27/18 06:00 04/27/18 06:00 04/27/18 06:00 04/27/18 06:00 04/27/18 06:00 Intake and Output: 04/27/18 04/27/18 06:59 18:59 Output Total 300 Balance -300 - Medications Medications: Current Medications Acetaminophen (Tylenol 650mg/20.3ml Solution Ud) 650 mg PEG Q6H PRN PRN Reason: Pain, Mild (1-3) Last Admin: 04/22/18 18:04 Dose: 650 mg Apixaban (Eliquis) 5 mg PEG BID [facility]; Protocol Last Admin: 04/27/18 10:44 Dose: 5 mg Collagenase (Santyl) 1 gm TOP DAILY [facility] Last Admin: 04/27/18 10:45 Dose: 1 applic Famotidine (Pepcid) 40 mg PEG HS [facility] Last Admin: 04/26/18 23:17 Dose: 40 mg Ferrous Gluconate (Fergon) 324 mg PO TID [facility] Last Admin: 04/27/18 10:44 Dose: 324 mg Levetiracetam (Keppra) 500 mg PEG Q12 [facility] Last Admin: 04/27/18 10:44 Dose: 500 mg Magnesium Oxide (Mag-Ox) 400 mg PEG BID [facility] Last Admin: 04/27/18 10:41 Dose: 400 mg Metoprolol Tartrate (Lopressor) 100 mg PEG BID [facility] Last Admin: 04/27/18 10:45 Dose: 100 mg Mupirocin (Bactroban Ointment) 1 gm TOP BID [facility] Last Admin: 04/27/18 10:45 Dose: 1 applic Polyethylene Glycol (Miralax) 17 gm PEG BID [facility] Last Admin: 04/27/18 10:44 Dose: 17 gm Silver Sulfadiazine (Silvadene 1% 25 Gm) 1 gm TP BID [facility] Last Admin: 04/27/18 10:45 Dose: 1 gm - Labs Labs: 04/24/18 07:00 04/24/18 07:00 PT 16.5 SECONDS (9.4-12.5) H 04/13/18 10:50 INR 1.42 04/13/18 10:50 APTT 28.7 Seconds (25.1-36.5) 04/13/18 10:50 Attending/Attestation - Attestation I have personally seen and examined this patient.: Yes I have fully participated in the care of the patient.: Yes I have reviewed all pertinent clinical information, including history, physical exam and plan: Yes
--- NOTE | 2018-04-27 21:35 | CP.PCM.PN ---
Subjective - Date & Time of Evaluation Date of Evaluation: 04/27/18 Time of Evaluation: 09:15 - Subjective Subjective: Comfortable, not in distress, afebrile. Objective - Vital Signs/Intake and Output Vital Signs (last 24 hours): Temp Pulse Resp BP Pulse Ox 97.8 F 111 H 18 135/50 L 96 04/27/18 06:00 04/27/18 06:00 04/27/18 06:00 04/27/18 06:00 04/27/18 06:00 Intake and Output: 04/27/18 04/27/18 06:59 18:59 Output Total 300 Balance -300 - Medications Medications: Current Medications Acetaminophen (Tylenol 650mg/20.3ml Solution Ud) 650 mg PEG Q6H PRN PRN Reason: Pain, Mild (1-3) Last Admin: 04/22/18 18:04 Dose: 650 mg Apixaban (Eliquis) 5 mg PEG BID [facility]; Protocol Last Admin: 04/26/18 17:39 Dose: 5 mg Collagenase (Santyl) 1 gm TOP DAILY [facility] Last Admin: 04/26/18 10:55 Dose: 1 applic Famotidine (Pepcid) 40 mg PEG HS [facility] Last Admin: 04/26/18 23:17 Dose: 40 mg Ferrous Gluconate (Fergon) 324 mg PO TID [facility] Last Admin: 04/26/18 17:39 Dose: 324 mg Levetiracetam (Keppra) 500 mg PEG Q12 [facility] Last Admin: 04/26/18 23:17 Dose: 500 mg Magnesium Oxide (Mag-Ox) 400 mg PEG BID [facility] Last Admin: 04/26/18 17:39 Dose: 400 mg Metoprolol Tartrate (Lopressor) 100 mg PEG BID [facility] Last Admin: 04/26/18 17:39 Dose: 100 mg Mupirocin (Bactroban Ointment) 1 gm TOP BID [facility] Last Admin: 04/26/18 17:40 Dose: 1 applic Polyethylene Glycol (Miralax) 17 gm PEG BID [facility] Last Admin: 04/26/18 17:39 Dose: 17 gm Silver Sulfadiazine (Silvadene 1% 25 Gm) 1 gm TP BID [facility] Last Admin: 04/26/18 17:39 Dose: 1 gm - Labs Labs: 04/24/18 07:00 04/24/18 07:00 PT 16.5 SECONDS (9.4-12.5) H 04/13/18 10:50 INR 1.42 04/13/18 10:50 APTT 28.7 Seconds (25.1-36.5) 04/13/18 10:50 - Constitutional Appears: Cachectic, Chronically Ill - Respiratory Exam Respiratory Exam: Decreased Breath Sounds - Cardiovascular Exam Cardiovascular Exam: +S1, +S2 - GI/Abdominal Exam GI & Abdominal Exam: Soft. absent: Tenderness Assessment and Plan - Assessment and Plan (Free Text) Plan: Assessment S/P systemic inflammatory response syndrome due to multiple sacral ulcers, grew Pseudomonas history of sepsis due to right lower lobe HCAP with ESBL E. coli left hip wound infection HTN COPD atrial fibrillation throat cancer dementia history of CVA of left frontal lobe liver cirrhosis Plan completed 7 days of Vancomycin and Merrem - will continue to monitor off antibiotics since he is at risk for nosocomial infections overall prognosis is poor
--- NOTE | 2018-04-28 00:49 | PN ---
DATE: 04/27/2018 SUBJECTIVE: The patient is a 72-year-old male. The patient was seen and examined at the bedside on 04/27/2018, looking comfortable. No fever. No chills. No nausea, vomiting, or diarrhea. No hematuria or hematochezia. No headache or dizziness. No chest pain or palpitation. The patient is a poor historian. PHYSICAL EXAMINATION: VITAL SIGNS: Temperature 97.8, pulse 111, respiratory rate 18, blood pressure 135/50, pulse oximetry 96. HEENT: Head, normocephalic and atraumatic. Eyes PERRLA. Extraocular movements intact. Conjunctivae clear. Nose patent. NECK: Supple. No carotid bruit. No JVD or thyromegaly. CHEST: Bilaterally symmetrical. HEART: S1 and S2 are positive. LUNGS: Clear to auscultation. ABDOMEN: Soft. Bowel sounds present. No organomegaly. EXTREMITIES: Trace edema. Multiple decubitus ulcers. MEDICATIONS: Tylenol, Eliquis, Santyl, Pepcid, ferrous sulfate, Keppra, magnesium oxide, Lopressor, MiraLax, Silvadene. LABORATORY DATA: White blood cells 10.7, hemoglobin 9.2, hematocrit 29.4, platelets 507. Sodium 132, potassium 4.1, BUN 20, creatinine 0.6, glucose 107. ASSESSMENT AND PLAN: Mr. Geo Ewing is a 72-year-old male with anemia, thrombocytosis. The patient has bilateral lower extremity multiple decubitus wounds. Podiatry is on the case. History of dementia, anemia, coronary artery disease, contractures of the extremities, systemic inflammatory response syndrome due to multiple sacral ulcers, growing Pseudomonas in the face of the history of sepsis with right lower lobe healthcare-associated pneumonia, liver cirrhosis, cerebrovascular accident, dementia, history of throat cancer. Has percutaneous endoscopic gastrostomy tube. Completed a 7-day course of antibiotics. As per Infectious Disease, no more antibiotics. Awaiting for placement. Gastrointestinal and deep venous thrombosis prophylaxis. Repeat labs. We will follow up. Mariana Fernandez MD
--- NOTE | 2018-04-28 09:11 | CP.PCM.PN ---
<Harish Benjamin - Last Filed: 04/28/18 09:09> Subjective - Date & Time of Evaluation Date of Evaluation: 04/28/18 Time of Evaluation: 09:09 - Subjective Subjective: Podiatry progress note for attending Dr. Winston BeckhamM seen and evaluated at bedside for multiple bilateral lower extremity wounds/blood blisters. Patient was awake during evaluation. As per his chart no overnight events. Patient is a poor historian. Patient was in pain during his dressing change. Patient in a contracted position Objective - Vital Signs/Intake and Output Vital Signs (last 24 hours): Temp Pulse Resp BP Pulse Ox 99 F 111 H 18 141/55 L 99 04/28/18 07:00 04/28/18 07:00 04/28/18 07:00 04/28/18 07:00 04/28/18 07:00 Intake and Output: 04/28/18 04/28/18 06:59 18:59 Output Total 1590 Balance -1590 - Medications Medications: Current Medications Acetaminophen (Tylenol 650mg/20.3ml Solution Ud) 650 mg PEG Q6H PRN PRN Reason: Pain, Mild (1-3) Last Admin: 04/22/18 18:04 Dose: 650 mg Apixaban (Eliquis) 5 mg PEG BID [facility]; Protocol Last Admin: 04/27/18 18:12 Dose: 5 mg Collagenase (Santyl) 1 gm TOP DAILY [facility] Last Admin: 04/27/18 10:45 Dose: 1 applic Famotidine (Pepcid) 40 mg PEG HS [facility] Last Admin: 04/27/18 21:51 Dose: 40 mg Ferrous Gluconate (Fergon) 324 mg PO TID [facility] Last Admin: 04/27/18 18:13 Dose: 324 mg Levetiracetam (Keppra) 500 mg PEG Q12 [facility] Last Admin: 04/27/18 21:51 Dose: 500 mg Magnesium Oxide (Mag-Ox) 400 mg PEG BID [facility] Last Admin: 04/27/18 18:13 Dose: 400 mg Metoprolol Tartrate (Lopressor) 100 mg PEG BID [facility] Last Admin: 04/27/18 18:13 Dose: 100 mg Mupirocin (Bactroban Ointment) 1 gm TOP BID [facility] Last Admin: 04/27/18 18:16 Dose: 1 applic Polyethylene Glycol (Miralax) 17 gm PEG BID [facility] Last Admin: 04/27/18 18:16 Dose: Not Given Silver Sulfadiazine (Silvadene 1% 25 Gm) 1 gm TP BID [facility] Last Admin: 04/27/18 18:16 Dose: 1 gm - Labs Labs: 04/24/18 07:00 04/24/18 07:00 PT 16.5 SECONDS (9.4-12.5) H 04/13/18 10:50 INR 1.42 04/13/18 10:50 APTT 28.7 Seconds (25.1-36.5) 04/13/18 10:50 - Constitutional Appears: Well, Non-toxic, No Acute Distress - Head Exam Head Exam: ATRAUMATIC, NORMOCEPHALIC - Extremities Exam Additional comments: LE focused exam: Vasc: DP/PT pulses faintly palpable 1/4 b/l. Skin temperature warm to warm from proximal to distal. Cap refill < 3 seconds to all digits b/l. No edema noted b/l Neuro: unable to assess. Patient is not cooperative Derm: R- multiple areas of superficial skin wounds noted thigh and the foot, no malodor, no drainage, no clinical signs of infection L- multiple areas of pressure blisters noted to the lateral aspect of the 5th digit and dorso-lateral aspect of the foot along with a heel ulceration, No erythema, malodor, drainage, tracking, tunneling, undermining, probe to bone, or other clinical signs of infection noted MSK: Minimal tenderness on palpation to left heel. Rigid contracture of all digits 1-5 b/l. Otherwise, no gross deformities noted. Unable to assess muscle strength secondary to patient mental status. Pain with attempt to change the patient position to change the dressing - Neurological Exam Neurological Exam: Alert, Awake, Oriented x3 - Psychiatric Exam Psychiatric exam: Normal Affect, Normal Mood Assessment and Plan - Assessment and Plan (Free Text) Assessment: 72M with bilateral lower extremity wounds Plan: Patient seen and evaluated at the bedside Plans discussed with Dr. Montero Afebrile, absent leukocytosis Right Lower Extremity Wounds- Exuderm discontinued at this time, optiofoam applied to all wounds Left Lower Extremity Wounds- optifoam applied to all wounds with DSD Multipodus boots recommended for patient, however, patient refuses to wear them at this time Podiatry will change dressings every MWF and will continue to follow up the patient while in house <Luisa Monterojen - Last Filed: 04/28/18 11:43> Objective - Vital Signs/Intake and Output Vital Signs (last 24 hours): Temp Pulse Resp BP Pulse Ox 99 F 112 H 18 115/72 99 04/28/18 07:00 04/28/18 10:37 04/28/18 07:00 04/28/18 10:37 04/28/18 07:00 Intake and Output: 04/28/18 04/28/18 06:59 18:59 Output Total 1590 Balance -1590 - Medications Medications: Current Medications Acetaminophen (Tylenol 650mg/20.3ml Solution Ud) 650 mg PEG Q6H PRN PRN Reason: Pain, Mild (1-3) Last Admin: 04/22/18 18:04 Dose: 650 mg Apixaban (Eliquis) 5 mg PEG BID [facility]; Protocol Last Admin: 04/28/18 10:32 Dose: 5 mg Collagenase (Santyl) 1 gm TOP DAILY [facility] Last Admin: 04/27/18 10:45 Dose: 1 applic Famotidine (Pepcid) 40 mg PEG HS [facility] Last Admin: 04/27/18 21:51 Dose: 40 mg Ferrous Gluconate (Fergon) 324 mg PO TID [facility] Last Admin: 04/28/18 10:32 Dose: 324 mg Levetiracetam (Keppra) 500 mg PEG Q12 [facility] Last Admin: 04/28/18 10:32 Dose: 500 mg Magnesium Oxide (Mag-Ox) 400 mg PEG BID [facility] Last Admin: 04/28/18 10:32 Dose: 400 mg Metoprolol Tartrate (Lopressor) 100 mg PEG BID [facility] Last Admin: 04/28/18 10:37 Dose: 50 mg Mupirocin (Bactroban Ointment) 1 gm TOP BID [facility] Last Admin: 04/27/18 18:16 Dose: 1 applic Polyethylene Glycol (Miralax) 17 gm PEG BID [facility] Last Admin: 04/28/18 10:32 Dose: 17 gm Silver Sulfadiazine (Silvadene 1% 25 Gm) 1 gm TP BID [facility] Last Admin: 04/27/18 18:16 Dose: 1 gm - Labs Labs: 04/24/18 07:00 04/24/18 07:00 PT 16.5 SECONDS (9.4-12.5) H 04/13/18 10:50 INR 1.42 04/13/18 10:50 APTT 28.7 Seconds (25.1-36.5) 04/13/18 10:50 Attending/Attestation - Attestation I have personally seen and examined this patient.: Yes I have fully participated in the care of the patient.: Yes I have reviewed all pertinent clinical information, including history, physical exam and plan: Yes
[2018-04-28] MEDS: POLYETHYLENE GLYCOL 3350 17 GM/Dose PACKET PEG SCH ×2 (10:32→18:05)
[2018-04-28] MEDS: Magnesium Oxide 400 mg Tab UD PEG SCH ×2 (10:32→18:05)
[2018-04-28] MEDS: levETIRAcetam 500 mg/5ml UD cups PEG SCH ×2 (10:32→21:14)
[2018-04-28] MEDS: Mupirocin 2% Ointment 15 GM TUBE TOP SCH ×2 (10:53→18:10)
[2018-04-28] MEDS: Silver Sulfadiazine 1% Cream (25 gm) TP SCH ×2 (10:54→18:08)
[2018-04-28] MEDS: Collagenase 250 Units/gm Ointment(30 gm) TOP SCH (10:54)
--- NOTE | 2018-04-28 12:27 | PN ---
DATE: 04/28/2018 SUBJECTIVE: The patient is in bed in no acute distress, nontoxic. PHYSICAL EXAMINATION: VITAL SIGNS: Temperature 99, blood pressure 140/50, respiratory rate 18. HEENT: Examination of HEENT is unremarkable. NECK: Supple. LUNGS: Decreased breath sounds. HEART: Normal S1, S2. ABDOMEN: Soft, nontender. LABORATORY DATA: Laboratory examination reveals the white count is 10,000, hemoglobin of 9, platelets of 507. Chemistries reveals a BUN of 20, creatinine of 0.6. Procalcitonin is noted. Microbiology is reviewed. ASSESSMENT AND PLAN: This is a 72-year-old male with status post systemic inflammatory response syndrome with multiple sacral colon ulcers growing pseudomonas, history of sepsis, hypertension, chronic obstructive pulmonary disease, atrial fibrillation, has completed 7 days of vancomycin, meropenem, currently off antibiotics, afebrile. The patient is at risk for developing nosocomial infections. Overall prognosis is quite poor. Efra Craig MD
--- NOTE | 2018-04-28 20:36 | PN ---
DATE: 04/28/2018 SUBJECTIVE: Patient is a 72-year-old male. Patient was seen and examined at the bedside on 04/28/2018, looking comfortable. No change in the status. No fever. No chills. No hematuria, hematochezia. PHYSICAL EXAMINATION VITAL SIGNS: Temperature 99, pulse 114, blood pressure 117/71, respiratory rate 18. HEENT: Head: Normocephalic, atraumatic. Eyes: PERRLA. Extraocular muscles are intact. Conjunctivae clear. Nose patent. Mucous membranes moist. NECK: Supple. No carotid bruit. No JVD, thyromegaly. CHEST: Bilaterally symmetrical. HEART: S1 and S2 positive. LUNGS: Clear to auscultation. ABDOMEN: Soft. Bowel sounds present. No organomegaly. EXTREMITIES: Multiple decubitus ulcers. NEUROLOGIC: Patient is awake, alert, but is not able to follow the command. MEDICATIONS: Bactroban, Eliquis, ferrous sulfate, Keppra, Lopressor, magnesium oxide, MiraLax, Pepcid, Santyl, Tylenol. LABORATORY DATA: White blood cells 10.7, hemoglobin 9.3, hematocrit 29.4, platelets 507. Sodium 132, potassium 4.1, BUN 20, creatinine 0.6, glucose 107, calcium 8.3. ASSESSMENT AND PLAN: Mr. Geo Ewing, 72-year-old male, with anemia, thrombocytosis, hypocalcemia, history of abnormal liver function test, proteinuria, hematuria, urinary tract infection, seen by Podiatry and Infectious Disease, status post systemic inflammatory response syndrome with multiple sacral decubitus ulcers, growing Pseudomonas, history of sepsis, hypertension, chronic obstructive pulmonary disease, atrial fibrillation. Completed 7 days of vancomycin, meropenem, currently off his antibiotics, afebrile. Overall prognosis is quite poor. Family, Eladia, daughter, knows that. [facility]ing [facility] the [facility]. Meanwhile, continue present treatment. Repeat labs. We will follow up. Mariana Fernandez MD
[2018-04-29] MEDS: Acetaminophen 650mg/20.3ml solution UD PEG PRN (05:41)
[2018-04-29 08:08] LABS: HEMOGLOBIN 8.3 g/dL (14.0-18.0); MEAN CELL VOLUME 76.8 fl (80.0-105.0); MEAN CORPUSCULAR HEMOGLOBIN 24.1 pg (25.0-35.0); MEAN CORPUSCULAR HGB CONC 31.3 g/dl (31.0-37.0); MEAN PLATELET VOLUME 8.5 fl (7.0-11.0); RBC 3.45 10^6/uL (3.5-6.1); RED CELL DISTRIBUTION WIDTH 16.6 % (11.5-14.5); WHITE BLOOD COUNT 21.4 10^3/uL (4.5-11.0)
[2018-04-29 08:16] LABS: BLOOD UREA NITROGEN 34 mg/dL (7-21); CALCIUM 8.3 mg/dL (8.4-10.5); GFR NON-AFRICAN AMERICAN > 60
--- NOTE | 2018-04-29 10:16 | RAD ---
Date of service: 04/29/2018 HISTORY: TEMP 102. COMPARISON: Comparison chest 04/18/2018. FINDINGS: LUNGS: Atelectasis and/or infiltrate right mid to lower lung field questionable small effusion PLEURA: No significant pleural effusion identified, no pneumothorax apparent. CARDIOVASCULAR: No discernible aortic atherosclerotic calcification present. Normal cardiac size. No pulmonary vascular congestion. OSSEOUS STRUCTURES: No significant abnormalities. VISUALIZED UPPER ABDOMEN: Normal. OTHER FINDINGS: Situ angiocatheter right antecubital IMPRESSION: Atelectasis and/or infiltrate right mid to lower lung field questionable small effusion
[2018-04-29] MEDS: Silver Sulfadiazine 1% Cream (25 gm) TP SCH ×2 (11:00→19:05)
[2018-04-29] MEDS: Collagenase 250 Units/gm Ointment(30 gm) TOP SCH (11:00)
[2018-04-29] MEDS: Mupirocin 2% Ointment 15 GM TUBE TOP SCH ×2 (11:00→19:04)
[2018-04-29] MEDS: levETIRAcetam 500 mg/5ml UD cups PEG SCH ×2 (11:02→21:29)
[2018-04-29] MEDS: POLYETHYLENE GLYCOL 3350 17 GM/Dose PACKET PEG SCH ×2 (11:03→19:02)
[2018-04-29] MEDS: Magnesium Oxide 400 mg Tab UD PEG SCH ×2 (11:03→19:03)
--- NOTE | 2018-04-29 15:04 | CP.PCM.PN ---
<Harish Benjamin - Last Filed: 04/29/18 15:02> Subjective - Date & Time of Evaluation Date of Evaluation: 04/29/18 Time of Evaluation: 15:02 - Subjective Subjective: Podiatry progress note for attending Dr. Herndon 72M seen and evaluated at bedside for multiple bilateral lower extremity wounds/blood blisters. Patient was awake during evaluation. As per his chart no overnight events. Patient is a poor historian. Patient denies pain during dressing change. Patient in a contracted position. Objective - Vital Signs/Intake and Output Vital Signs (last 24 hours): Temp Pulse Resp BP Pulse Ox 98.5 F 111 H 21 116/66 92 L 04/29/18 08:06 04/29/18 11:07 04/29/18 07:00 04/29/18 11:07 04/29/18 07:00 Intake and Output: 04/29/18 04/29/18 06:59 18:59 Intake Total 0 Output Total 300 Balance -300 - Medications Medications: Current Medications Acetaminophen (Tylenol 650mg/20.3ml Solution Ud) 650 mg PEG Q6H PRN PRN Reason: Pain, Mild (1-3) Last Admin: 04/29/18 05:41 Dose: 650 mg Apixaban (Eliquis) 5 mg PEG BID [facility]; Protocol Last Admin: 04/29/18 11:01 Dose: 5 mg Collagenase (Santyl) 1 gm TOP DAILY [facility] Last Admin: 04/29/18 11:00 Dose: 1 applic Famotidine (Pepcid) 40 mg PEG HS [facility] Last Admin: 04/28/18 21:14 Dose: 40 mg Ferrous Gluconate (Fergon) 324 mg PO TID [facility] Last Admin: 04/29/18 14:37 Dose: 324 mg Levetiracetam (Keppra) 500 mg PEG Q12 [facility] Last Admin: 04/29/18 11:02 Dose: 500 mg Magnesium Oxide (Mag-Ox) 400 mg PEG BID [facility] Last Admin: 04/29/18 11:03 Dose: 400 mg Metoprolol Tartrate (Lopressor) 100 mg PEG BID [facility] Last Admin: 04/29/18 11:07 Dose: 50 mg Mupirocin (Bactroban Ointment) 1 gm TOP BID [facility] Last Admin: 04/29/18 11:00 Dose: 1 applic Polyethylene Glycol (Miralax) 17 gm PEG BID [facility] Last Admin: 04/29/18 11:03 Dose: 17 gm Silver Sulfadiazine (Silvadene 1% 25 Gm) 1 gm TP BID [facility] Last Admin: 04/29/18 11:00 Dose: 1 gm - Labs Labs: 04/29/18 07:45 04/29/18 07:45 PT 16.5 SECONDS (9.4-12.5) H 04/13/18 10:50 INR 1.42 04/13/18 10:50 APTT 28.7 Seconds (25.1-36.5) 04/13/18 10:50 - Constitutional Appears: Well, Non-toxic, No Acute Distress - Head Exam Head Exam: ATRAUMATIC, NORMOCEPHALIC - Extremities Exam Additional comments: Vasc: DP/PT pulses faintly palpable 1/4 b/l. Skin temperature warm to warm from proximal to distal. Cap refill < 3 seconds to all digits b/l. No edema noted b/l Neuro: unable to assess. Patient is not cooperative Derm: R- multiple areas of superficial skin wounds noted thigh and the foot, no malodor, no drainage, no clinical signs of infection L- multiple areas of pressure blisters noted to the lateral aspect of the 5th digit and dorso-lateral aspect of the foot along with a heel ulceration, No erythema, malodor, drainage, tracking, tunneling, undermining, probe to bone, or other clinical signs of infection noted MSK: Minimal tenderness on palpation to left heel. Rigid contracture of all digits 1-5 b/l. Otherwise, no gross deformities noted. Unable to assess muscle strength secondary to patient mental status. Pain with attempt to change the patient position to change the dressing - Neurological Exam Neurological Exam: Alert, Awake - Psychiatric Exam Psychiatric exam: Normal Affect, Normal Mood Assessment and Plan - Assessment and Plan (Free Text) Assessment: 72M with bilateral lower extremity wounds Plan: Patient seen and evaluated at the bedside Plans discussed with Dr. Herndon Afebrile, absent leukocytosis Right Lower Extremity Wounds- Exuderm discontinued at this time, optiofoam applied to all wounds Left Lower Extremity Wounds- optifoam applied to all wounds with DSD Multipodus boots recommended for patient, however, patient refuses to wear them at this time Podiatry will change dressings every MWF and will continue to follow up the patient while in house <RyanMona ac Sindy - Last Filed: 05/04/18 15:18> Objective - Vital Signs/Intake and Output Vital Signs (last 24 hours): Temp Pulse Resp BP Pulse Ox 101.1 F H 129 H 18 101/53 L 92 L 05/04/18 14:00 05/04/18 14:00 05/04/18 14:00 05/04/18 14:00 05/04/18 14:00 Intake and Output: 05/04/18 05/04/18 06:59 18:59 Intake Total 0 Output Total 2300 Balance -2300 - Medications Medications: Current Medications Acetaminophen (Tylenol 650mg/20.3ml Solution Ud) 650 mg PO Q6H PRN PRN Reason: Pain, Mild (1-3) Acetaminophen (Tylenol 650mg/20.3ml Solution Ud) 650 mg PO Q6H PRN PRN Reason: fever Last Admin: 05/01/18 04:39 Dose: 650 mg Acetylcysteine (Acetylcysteine 20%) 4 ml IH Q8H [facility] Last Admin: 05/04/18 14:27 Dose: 4 ml Apixaban (Eliquis) 5 mg PEG BID [facility]; Protocol Last Admin: 05/04/18 10:43 Dose: 5 mg Budesonide (Pulmicort Respules) 0.5 mg IH Q8 [facility] Last Admin: 05/04/18 14:28 Dose: 0.5 mg Digoxin (Lanoxin) 0.25 mg PO 1400 [facility] Diltiazem HCl (Cardizem) 30 mg PEG Q6H [facility] Last Admin: 05/03/18 12:07 Dose: 30 mg Famotidine (Pepcid) 40 mg PEG HS [facility] Last Admin: 05/03/18 21:44 Dose: 40 mg Ferrous Gluconate (Fergon) 324 mg PO TID [facility] Last Admin: 05/04/18 10:43 Dose: 324 mg Furosemide (Lasix) 40 mg IVP DAILY [facility] Last Admin: 05/04/18 10:44 Dose: 40 mg Meropenem (Merrem Iv 1 Gm Premix) 1 gm in 50 mls @ 100 mls/hr IVPB Q8 [facility]; Protocol Stop: 05/08/18 15:53 Last Admin: 05/04/18 05:32 Dose: 100 mls/hr Vancomycin HCl (Vancomycin 1gm) 1 gm in 250 mls @ 167 mls/hr IVPB 1000,2200 [facility]; Protocol Stop: 05/08/18 16:01 Last Admin: 05/04/18 10:45 Dose: 167 mls/hr Ipratropium [place] (Atrovent) 0.5 mg IH TIDRESP [facility] Last Admin: 05/04/18 14:28 Dose: 0.5 mg Levalbuterol HCl (Xopenex) 1.25 mg IH [id number] PRN PRN Reason: Shortness of Breath Last Admin: 05/04/18 11:31 Dose: 1.25 mg Levetiracetam (Keppra) 500 mg PEG Q12 [facility] Last Admin: 05/04/18 10:43 Dose: 500 mg Magnesium Oxide (Mag-Ox) 400 mg PEG BID [facility] Last Admin: 05/04/18 10:44 Dose: 400 mg Metoprolol Tartrate (Lopressor) 100 mg PEG BID [facility] Last Admin: 05/03/18 11:08 Dose: 100 mg Mupirocin (Bactroban Ointment) 0 gm NS BID [facility] Stop: 05/07/18 18:01 Last Admin: 05/04/18 10:44 Dose: 1 appl Sodium Hypochlorite (Dakins Solution 0.25%) 0 ml TOP DAILY [facility] Last Admin: 05/04/18 10:44 Dose: 1 appl Verapamil HCl (Calan Tab) 40 mg PO TID [facility] Last Admin: 05/04/18 10:47 Dose: 40 mg - Labs Labs: 05/04/18 06:45 05/04/18 06:45 PT 16.5 SECONDS (9.4-12.5) H 04/13/18 10:50 INR 1.42 04/13/18 10:50 APTT 28.7 Seconds (25.1-36.5) 04/13/18 10:50 Attending/Attestation - Attestation I have personally seen and examined this patient.: Yes I have fully participated in the care of the patient.: Yes I have reviewed all pertinent clinical information, including history, physical exam and plan: Yes
[2018-04-29] MEDS: Meropenem IV 1 gm in NS 1 GM/50 ML BAG IVPB SCH ×2 (16:28→21:30)
[2018-04-29 16:32] LABS: URINE BILIRUBIN NEGATIVE (NEGATIVE); URINE BLOOD LARGE (NEGATIVE); URINE GLUCOSE (UA) NEGATIVE (NEGATIVE); URINE LEUKOCYTE ESTERASE LARGE Leu/uL (NEGATIVE); URINE PROTEIN 100 mg/dL (<30 mg/dL); URINE UROBILINOGEN 0.2 E.U./dL (<1 E.U./dL)
[2018-04-29 16:38] LABS: URINE APPEARANCE TURBID (CLEAR); URINE COLOR LIGHT YELLOW (YELLOW)
[2018-04-29 17:19] LABS: URINE BACTERIA MANY (NEG); URINE RBC TNTC /hpf (0-2); URINE WBC 25 - 30 /hpf (0-6)
[2018-04-29] MEDS: Vancomycin 1gm in NS 250ml 1 GM/250 ML BAG IVPB SCH (19:06)
--- NOTE | 2018-04-29 21:44 | PN ---
DATE: 04/29/2018 PHYSICAL EXAMINATION: GENERAL: The patient is in bed, in no acute distress. VITAL SIGNS: The patient has a new fever on exam, temperature of 102, blood pressure is 104/50, respiratory rate of 21, heart rate of 111. HEENT: Unremarkable. NECK: Supple. LUNGS: Have decreased breath sounds. HEART: Normal S1, S2. ABDOMEN: Soft. LABORATORY EXAMINATION: Reveals a white count of 21,000, hemoglobin of 8, platelets of 514. BUN of 34, creatinine of 0.7. Urinalysis is noted. Microbiology is noted to have Pseudomonas and yeast. The patient had a chest x-ray today. There is a questionable atelectasis, infiltrate in the right lower lung, questionable effusion, and review of orders reveals that blood cultures have been ordered, urine cultures have been ordered by me, also had sputum cultures and a MRSA nasal screen and procalcitonin. We will start the patient on empiric vancomycin and meropenem. Now the patient has new fevers and tachycardia and new infiltrate and dyspnea with sepsis with Healthcare-associated pneumonia. Pending repeat blood cultures, urine cultures, sputum cultures, procalcitonin. We will make further recommendations. We will follow closely. Efra Craig MD
--- NOTE | 2018-04-29 23:35 | PN ---
DATE: 04/29/2018 SUBJECTIVE: The patient is a 72-year-old male. The patient was seen and examined at the bedside on 04/29/2018, looking comfortable. Has multiple bilateral lower extremity wounds, blood blisters. Awake and alert. No fever. No chills. No hematuria or hematochezia. No headache or dizziness. No chest pain or palpitation. PHYSICAL EXAMINATION: VITAL SIGNS: Temperature 98.5, pulse 111, respiratory rate 20, blood pressure 116/66, pulse oximetry 92. HEENT: Head: Normocephalic, atraumatic. Eyes: PERRLA. Extraocular muscles intact. Conjunctivae clear. Nose patent. Mucous membranes moist. NECK: Supple. No carotid bruit. No thyromegaly. CHEST: Bilaterally symmetrical. HEART: S1 and S2 positive. LUNGS: Clear to auscultation. ABDOMEN: Soft. Bowel sounds present. No organomegaly. EXTREMITIES: Multiple decubitus ulcers. MEDICATIONS: Tylenol, Eliquis, Pepcid, Fergon, Keppra, magnesium oxide, Lopressor, Bactroban, MiraLax, and silver sulfadiazine. LABORATORY DATA: White blood cells 21.4, hemoglobin 8.3, hematocrit 26.5, platelets 514. Sodium 130, potassium 4.5, BUN 34, creatinine 0.7, glucose 114. ASSESSMENT AND PLAN: Mr. Geo Ewing is a 72-year-old male with leukocytosis, anemia, thrombocytosis, hyponatremia, renal insufficiency, hyperglycemia. Has bilateral lower extremity wounds. Podiatry is on the case. The patient has a fever last night. Chest x-ray was done, looks like rule out pneumonia. History of systemic inflammatory response syndrome with multiple sacral decubitus ulcers, growing Pseudomonas, sepsis, hypertension, chronic obstructive pulmonary disease, atrial fibrillation. Completed seven days of vancomycin and Merrem. He is not on antibiotics. We will reconsult with Infectious Disease and Pulmonary to rule out pneumonia, may be aspiration pneumonia. Continue present treatment. Gastrointestinal and deep vein thrombosis. Repeat labs. We will follow up. Mariana Fernandez MD
[2018-04-30] MEDS: Meropenem IV 1 gm in NS 1 GM/50 ML BAG IVPB SCH ×3 (05:40→21:27)
[2018-04-30] MEDS: Vancomycin 1gm in NS 250ml 1 GM/250 ML BAG IVPB SCH ×2 (05:42→16:17)
[2018-04-30 06:49] LABS: BLOOD UREA NITROGEN 35 mg/dL (7-21); CALCIUM 8.2 mg/dL (8.4-10.5); GFR NON-AFRICAN AMERICAN > 60; HEMOGLOBIN 8.6 g/dL (14.0-18.0); MEAN CELL VOLUME 76.8 fl (80.0-105.0); MEAN CORPUSCULAR HGB CONC 31.3 g/dl (31.0-37.0); MEAN PLATELET VOLUME 8.5 fl (7.0-11.0); RBC 3.58 10^6/uL (3.5-6.1); RED CELL DISTRIBUTION WIDTH 16.8 % (11.5-14.5); WHITE BLOOD COUNT 17.3 10^3/uL (4.5-11.0)
[2018-04-30] MEDS: POLYETHYLENE GLYCOL 3350 17 GM/Dose PACKET PEG SCH ×2 (10:36→18:20)
[2018-04-30] MEDS: levETIRAcetam 500 mg/5ml UD cups PEG SCH ×2 (10:36→21:27)
[2018-04-30] MEDS: Magnesium Oxide 400 mg Tab UD PEG SCH ×2 (10:36→18:13)
--- NOTE | 2018-04-30 10:36 | CP.PCM.PN ---
<Jorden Rome - Last Filed: 04/30/18 19:45> Subjective - Date & Time of Evaluation Date of Evaluation: 04/30/18 Time of Evaluation: 10:36 - Subjective Subjective: Podiatry progress note for attending Dr. Herndon 72 y/o M patient seen and evaluated at the bedside for bilateral lower extremity wounds and blisters. Patient was awake during evaluation. As per his chart has fever overnight and today. Patient is a poor historian. Patient shows some pain during dressing change. Patient in a contracted position. Patient was not wearing his multipodus boot during exam time. Objective - Vital Signs/Intake and Output Vital Signs (last 24 hours): Temp Pulse Resp BP Pulse Ox 97 F L 116 H 20 127/52 L 91 L 04/30/18 06:00 04/30/18 06:00 04/30/18 06:00 04/30/18 06:00 04/30/18 06:00 Intake and Output: 04/30/18 04/30/18 06:59 18:59 Intake Total 450 Output Total 500 Balance -50 - Medications Medications: Current Medications Apixaban (Eliquis) 5 mg PEG BID HEIDE; Protocol Last Admin: 04/29/18 19:03 Dose: 5 mg Collagenase (Santyl) 1 gm TOP DAILY HEIDE Last Admin: 04/29/18 11:00 Dose: 1 applic Famotidine (Pepcid) 40 mg PEG HS HEIDE Last Admin: 04/29/18 21:29 Dose: 40 mg Ferrous Gluconate (Fergon) 324 mg PO TID [facility] Last Admin: 04/29/18 19:02 Dose: 324 mg Meropenem (Merrem Iv 1 Gm Premix) 1 gm in 50 mls @ 100 mls/hr IVPB Q8 HEIDE; Protocol Stop: 05/08/18 15:53 Last Admin: 04/30/18 05:40 Dose: 100 mls/hr Vancomycin HCl (Vancomycin 1gm) 1 gm in 250 mls @ 167 mls/hr IVPB Q12H HEIDE; Protocol Stop: 05/08/18 16:01 Last Admin: 04/30/18 05:42 Dose: 167 mls/hr Levetiracetam (Keppra) 500 mg PEG Q12 HEIDE Last Admin: 04/29/18 21:29 Dose: 500 mg Magnesium Oxide (Mag-Ox) 400 mg PEG BID [facility] Last Admin: 04/29/18 19:03 Dose: 400 mg Metoprolol Tartrate (Lopressor) 100 mg PEG BID [facility] Last Admin: 04/29/18 21:29 Dose: 100 mg Polyethylene Glycol (Miralax) 17 gm PEG BID [facility] Last Admin: 04/29/18 19:02 Dose: 17 gm Silver Sulfadiazine (Silvadene 1% 25 Gm) 1 gm TP BID [facility] Last Admin: 04/29/18 19:05 Dose: 1 gm - Labs Labs: 04/30/18 06:20 04/30/18 06:20 PT 16.5 SECONDS (9.4-12.5) H 04/13/18 10:50 INR 1.42 04/13/18 10:50 APTT 28.7 Seconds (25.1-36.5) 04/13/18 10:50 - Head Exam Head Exam: ATRAUMATIC - Extremities Exam Additional comments: B/L LE focused exam: Vasc: DP/PT pulses faintly palpable 1/4 b/l. Skin temperature warm to warm from proximal to distal. Cap refill < 3 seconds to all digits b/l. No edema noted b/l Neuro: unable to assess. Patient is not cooperative Derm: R- multiple areas of superficial skin wounds noted thigh and the foot, no malodor, no drainage, no clinical signs of infection L- multiple areas of pressure blisters noted to the lateral aspect of the 5th digit and dorso-lateral aspect of the foot along with a heel ulceration, No erythema, malodor, drainage, tracking, tunneling, undermining, probe to bone, or other clinical signs of infection noted MSK: Minimal tenderness on palpation to left heel. Rigid contracture of all digits 1-5 b/l. Otherwise, no gross deformities noted. Unable to assess muscle strength secondary to patient mental status. Pain with attempt to change the patient position to change the dressing Assessment and Plan - Assessment and Plan (Free Text) Assessment: 72 y/o M patient seen and evaluated at the bedside for bilateral lower extremity wounds and blisters Plan: Patient seen and evaluated at the bedside with Yanick Her Plans discussed with Dr. Herndon Charts, labs and vitals reviewed; Patient is febrile 101.3, WBCs 17.3 Right Lower Extremity Wounds- Exuderm discontinued at this time, optiofoam applied to all wounds Left Lower Extremity Wounds- optifoam applied to all wounds with DSD Multipodus boots recommended for patient at all times Podiatry will change dressings every MWF and will continue to follow up the p atient while in house <Mona Herndon - Last Filed: 05/04/18 15:12> Objective - Vital Signs/Intake and Output Vital Signs (last 24 hours): Temp Pulse Resp BP Pulse Ox 101.1 F H 129 H 18 101/53 L 92 L 05/04/18 14:00 05/04/18 14:00 05/04/18 14:00 05/04/18 14:00 05/04/18 14:00 Intake and Output: 05/04/18 05/04/18 06:59 18:59 Intake Total 0 Output Total 2300 Balance -2300 - Medications Medications: Current Medications Acetaminophen (Tylenol 650mg/20.3ml Solution Ud) 650 mg PO Q6H PRN PRN Reason: Pain, Mild (1-3) Acetaminophen (Tylenol 650mg/20.3ml Solution Ud) 650 mg PO Q6H PRN PRN Reason: fever Last Admin: 05/01/18 04:39 Dose: 650 mg Acetylcysteine (Acetylcysteine 20%) 4 ml IH Q8H [facility] Last Admin: 05/04/18 14:27 Dose: 4 ml Apixaban (Eliquis) 5 mg PEG BID [facility]; Protocol Last Admin: 05/04/18 10:43 Dose: 5 mg Budesonide (Pulmicort Respules) 0.5 mg IH Q8 [facility] Last Admin: 05/04/18 14:28 Dose: 0.5 mg Digoxin (Lanoxin) 0.25 mg PO 1400 HEIDE Diltiazem HCl (Cardizem) 30 mg PEG Q6H [facility] Last Admin: 05/03/18 12:07 Dose: 30 mg Famotidine (Pepcid) 40 mg PEG HS [facility] Last Admin: 05/03/18 21:44 Dose: 40 mg Ferrous Gluconate (Fergon) 324 mg PO TID [facility] Last Admin: 05/04/18 10:43 Dose: 324 mg Furosemide (Lasix) 40 mg IVP DAILY [facility] Last Admin: 05/04/18 10:44 Dose: 40 mg Meropenem (Merrem Iv 1 Gm Premix) 1 gm in 50 mls @ 100 mls/hr IVPB Q8 [facility]; Protocol Stop: 05/08/18 15:53 Last Admin: 05/04/18 05:32 Dose: 100 mls/hr Vancomycin HCl (Vancomycin 1gm) 1 gm in 250 mls @ 167 mls/hr IVPB 1000,2200 HEIDE; Protocol Stop: 05/08/18 16:01 Last Admin: 05/04/18 10:45 Dose: 167 mls/hr Ipratropium Brohard (Atrovent) 0.5 mg IH TIDRESP [facility] Last Admin: 05/04/18 14:28 Dose: 0.5 mg Levalbuterol HCl (Xopenex) 1.25 mg IH [id number] PRN PRN Reason: Shortness of Breath Last Admin: 05/04/18 11:31 Dose: 1.25 mg Levetiracetam (Keppra) 500 mg PEG Q12 HEIDE Last Admin: 05/04/18 10:43 Dose: 500 mg Magnesium Oxide (Mag-Ox) 400 mg PEG BID [facility] Last Admin: 05/04/18 10:44 Dose: 400 mg Metoprolol Tartrate (Lopressor) 100 mg PEG BID [facility] Last Admin: 05/03/18 11:08 Dose: 100 mg Mupirocin (Bactroban Ointment) 0 gm NS BID HEIDE Stop: 05/07/18 18:01 Last Admin: 05/04/18 10:44 Dose: 1 appl Sodium Hypochlorite (Dakins Solution 0.25%) 0 ml TOP DAILY [facility] Last Admin: 05/04/18 10:44 Dose: 1 appl Verapamil HCl (Calan Tab) 40 mg PO TID [facility] Last Admin: 05/04/18 10:47 Dose: 40 mg - Labs Labs: 05/04/18 06:45 05/04/18 06:45 PT 16.5 SECONDS (9.4-12.5) H 04/13/18 10:50 INR 1.42 04/13/18 10:50 APTT 28.7 Seconds (25.1-36.5) 04/13/18 10:50 Attending/Attestation - Attestation I have personally seen and examined this patient.: Yes I have fully participated in the care of the patient.: Yes I have reviewed all pertinent clinical information, including history, physical exam and plan: Yes
[2018-04-30] MEDS: Collagenase 250 Units/gm Ointment(30 gm) TOP SCH (10:37)
[2018-04-30] MEDS: Silver Sulfadiazine 1% Cream (25 gm) TP SCH ×2 (10:38→18:21)
[2018-04-30] MEDS ORDERED: Acetaminophen 650mg/20.3ml solution UD PEG ONE (16:11)
--- NOTE | 2018-04-30 21:26 | CP.PCM.PN ---
Subjective - Date & Time of Evaluation Date of Evaluation: 04/30/18 Time of Evaluation: 08:45 - Subjective Subjective: Still having fevers, no diarrhea, no vomiting, not in distress. Objective - Vital Signs/Intake and Output Vital Signs (last 24 hours): Temp Pulse Resp BP Pulse Ox 101.3 F H 117 H 20 108/51 L 97 04/29/18 23:28 04/29/18 23:28 04/29/18 23:28 04/29/18 23:28 04/29/18 23:28 Intake and Output: 04/30/18 04/30/18 06:59 18:59 Intake Total 450 Output Total 500 Balance -50 - Medications Medications: Current Medications Apixaban (Eliquis) 5 mg PEG BID HEIDE; Protocol Last Admin: 04/29/18 19:03 Dose: 5 mg Collagenase (Santyl) 1 gm TOP DAILY [facility] Last Admin: 04/29/18 11:00 Dose: 1 applic Famotidine (Pepcid) 40 mg PEG HS [facility]IDE Last Admin: 04/29/18 21:29 Dose: 40 mg Ferrous Gluconate (Fergon) 324 mg PO TID [facility] Last Admin: 04/29/18 19:02 Dose: 324 mg Meropenem (Merrem Iv 1 Gm Premix) 1 gm in 50 mls @ 100 mls/hr IVPB Q8 HEIDE; Protocol Stop: 05/08/18 15:53 Last Admin: 04/30/18 05:40 Dose: 100 mls/hr Vancomycin HCl (Vancomycin 1gm) 1 gm in 250 mls @ 167 mls/hr IVPB Q12H HEIDE; Protocol Stop: 05/08/18 16:01 Last Admin: 04/30/18 05:42 Dose: 167 mls/hr Levetiracetam (Keppra) 500 mg PEG Q12 [facility] Last Admin: 04/29/18 21:29 Dose: 500 mg Magnesium Oxide (Mag-Ox) 400 mg PEG BID [facility] Last Admin: 04/29/18 19:03 Dose: 400 mg Metoprolol Tartrate (Lopressor) 100 mg PEG BID [facility] Last Admin: 04/29/18 21:29 Dose: 100 mg Polyethylene Glycol (Miralax) 17 gm PEG BID [facility] Last Admin: 04/29/18 19:02 Dose: 17 gm Silver Sulfadiazine (Silvadene 1% 25 Gm) 1 gm TP BID [facility] Last Admin: 04/29/18 19:05 Dose: 1 gm - Labs Labs: 04/30/18 06:20 04/30/18 06:20 PT 16.5 SECONDS (9.4-12.5) H 04/13/18 10:50 INR 1.42 04/13/18 10:50 APTT 28.7 Seconds (25.1-36.5) 04/13/18 10:50 - Constitutional Appears: Chronically Ill - Head Exam Head Exam: NORMAL INSPECTION - Respiratory Exam Respiratory Exam: Decreased Breath Sounds - Cardiovascular Exam Cardiovascular Exam: +S1, +S2 - GI/Abdominal Exam GI & Abdominal Exam: Soft. absent: Tenderness Assessment and Plan - Assessment and Plan (Free Text) Plan: Assessment systemic inflammatory response syndrome consider sepsis due to HCAP and UTI with gram negative bacilli due to multiple sacral ulcers, grew Pseudomonas history of sepsis due to right lower lobe HCAP with ESBL E. coli left hip wound infection HTN COPD atrial fibrillation throat cancer dementia history of CVA of left frontal lobe liver cirrhosis Plan continue Vancomycin and Merrem day 2 and follow up identification and sensitivities of the gram negative bacilli in the urine will trend fever curve will get Rapid Influenza test overall prognosis is poor
--- NOTE | 2018-05-01 02:32 | PN ---
DATE: 04/30/2018 SUBJECTIVE: Geo Ewing is still having fever, this is a second day. No diarrhea. No vomiting. No headache. No dizziness. No hematuria. No hematochezia. The patient is a very poor historian. PHYSICAL EXAMINATION: VITAL SIGNS: T-max is 101.3, temperature 99.4, pulse 115, blood pressure 90/36, and respiratory rate 20. HEENT: Head; normocephalic and atraumatic. Eyes; PERRLA. Extraocular muscles intact. Conjunctivae clear. Nose patent. Mucous membranes moist. NECK: Supple. No carotid bruits. No JVD or thyromegaly. CHEST: Bilaterally symmetrical. HEART: S1 and S2 positive. LUNGS: Clear to auscultation. ABDOMEN: Soft. Bowel sounds present. No organomegaly. EXTREMITIES: The patient has multiple decubitus ulcers. NEUROLOGIC: Awake and alert. Follows simple commands. MEDICATIONS: Ipratropium, Brovana, Eliquis, ferrous gluconate, Keppra, Lopressor, magnesium oxide, meropenem, MiraLax, Pepcid, Pulmicort, collagenase, silver sulfadiazine, Tylenol, and vancomycin. LABORATORY DATA: White blood cells 12.3, hemoglobin 8.6, hematocrit 27.5, and platelets 483. Sodium 135, potassium 4.7, BUN 35, creatinine 0.7, and glucose noted ASSESSMENT AND PLAN: Mr. Geo Ewing is a 72-year-old male with leukocytosis, anemia, thrombocytosis, renal insufficiency, hypocalcemia, looks like has sepsis, proteinuria, hematuria, and urinary tract infection. Influenza type B is negative and seen by Dr. Deo Rodas, Infectious Disease. Has systemic inflammatory response syndrome. Sepsis due to healthcare-associated pneumonia and urinary tract infection with Gram-negative bacilli due to multiple sacral ulcers that grew Pseudomonas. History of sepsis due to right lower lobe healthcare-associated pneumonia with extended-spectrum beta-lactamase Escherichia coli left hip wound infection. Hypertension, chronic obstructive pulmonary disease, atrial fibrillation, history of throat cancer, dementia, dysphagia, has percutaneous endoscopic gastrostomy tube, history of cerebrovascular accident of left frontal lobe, and liver cirrhosis. Continue vancomycin and Merrem day 2 and follow up identification and sensitivity of the Gram-negative bacilli of the urine. Overall prognosis is poor, but getting antibiotics. Repeat labs. We will follow up. Mariana Fernandez MD JAMES
--- NOTE | 2018-05-01 04:25 | CON ---
DATE OF CONSULTATION: 04/30/2018 REFERRING PHYSICIAN: Mariana Fernandez MD REASON FOR CONSULTATION: Chronic lung disease, history of head and neck cancer, has been in the hospital for a while with a sepsis with severe pressure wounds. HISTORY OF PRESENT ILLNESS: This is a 72-year-old gentleman well known to me from previous admissions with multiple medical issues. He has a history of head and neck cancer, requiring a resection; chronic obstructive lung disease; feeding difficulty, requiring G-tube; aphasic; cirrhotic liver; multiple decubiti ulcers; has a foot ulcer, followed by Podiatry; atrial fibrillation, on anticoagulation; hypertension; history of stroke with right-sided hemiparesis. Originally, he has been admitted with change in mental status. He has been seen by Infectious Diseases, treated for Pseudomonas in the wound, also was treated for Gram-positive, again has some fever. Chest x-ray was done, which showed some atelectasis versus infiltrate. He is lying in the bed. He has right foot contractures with dressing underneath on it. No significant cough or sputum production. No hemoptysis or emesis. No hematuria, no diarrhea reported. PAST MEDICAL HISTORY: As per history of present illness. SOCIAL HISTORY: Nonsmoker, nondrinker. FAMILY HISTORY: No significant cardiopulmonary disease reported. MEDICATIONS: He is on Eliquis 5 mg G-tube twice a day, ferrous gluconate 325 mg three times a day, levetiracetam 500 mg every 12 hours, metoprolol tartrate 100 mg twice a day, Mag-Oxide 400 mg twice a day, meropenem 1 g IV every eight hours, MiraLax 17 g twice a day, Pepcid 40 mg h.s., Santyl 1 g topically daily, vancomycin 1 g IV every 12 hours. ALLERGIES: NONE KNOWN. REVIEW OF SYSTEMS: No headache, no rhinitis. No cough or sputum production. No chest pain, no nausea, no vomiting. G-tube area looks okay. Has multiple pressure ulcers on the extremities. Has contractures of the lower extremities. Neurologically, awake, alert, occasionally verbal. LABORATORY DATA: Hemoglobin 8.6, hematocrit 27.5, WBC 17.3, platelet count is 483. Last INR 1.42. PTT 29. Sodium 135, potassium 4.6, chloride 103, bicarbonate 29, BUN 35, creatinine 0.7, glucose 100, calcium is 8.2, procalcitonin 3.62. Microbiology: Last urine culture has Gram-negative rods. Nasal MRSA is negative. Repeat blood culture on 04/29/2018 is no growth. Decubiti ulcer had a Pseudomonas aeruginosa. Urine on 04/19/2018 had a Pseudomonas aeruginosa. He had a chest x-ray done yesterday, which is 04/29/2018, shows atelectasis and infiltrate right mid to lower lung field with probably a small effusion. IMPRESSION AND PLAN: Healthcare-associated pneumonia, status post urinary tract infection, treated, which was Pseudomonas organism. He also has multiple decubiti ulcers with lower extremity contractures, history of head and neck cancer requiring surgery in the past, also had a stroke with hemiparesis, feeding difficulty requiring G-tube, recurrent urinary tract infections, history of cirrhotic liver, electrolyte imbalance, renal insufficiency, diabetes. Spoke to nursing staff and requested to relieve some pressure from his right foot and right leg. Needs frequent change in position. Also, we will get decubiti wound care nurses follow with us. The patient has been seen by Surgery, also seen by Podiatry. Pulmonary point of view, I already started him on meropenem and vancomycin, which are broad-spectrum antibiotics covering healthcare-associated organism. We will add inhaled bronchodilators. Overall poor prognosis. Thank you and we will follow. Fatoumata Cruz MD
[2018-05-01] MEDS: Vancomycin 1gm in NS 250ml 1 GM/250 ML BAG IVPB SCH ×4 (04:36→22:01)
[2018-05-01] MEDS: Acetaminophen 650mg/20.3ml solution UD PO PRN (04:39)
[2018-05-01] MEDS: Meropenem IV 1 gm in NS 1 GM/50 ML BAG IVPB SCH ×3 (05:08→21:35)
[2018-05-01 06:57] LABS: HEMOGLOBIN 7.2 g/dL (14.0-18.0); MEAN CELL VOLUME 77.6 fl (80.0-105.0); MEAN CORPUSCULAR HEMOGLOBIN 24.1 pg (25.0-35.0); MEAN PLATELET VOLUME 8.6 fl (7.0-11.0); RBC 2.99 10^6/uL (3.5-6.1); RED CELL DISTRIBUTION WIDTH 16.9 % (11.5-14.5); WHITE BLOOD COUNT 21.7 10^3/uL (4.5-11.0)
[2018-05-01] MEDS: Ipratropium 0.02% Inhal Soln (0.5 mg/2.5 ml) UD IH SCH ×3 (07:26→22:03)
[2018-05-01] MEDS: Arformoterol 15 mcg/2 ml Inh Sol IH SCH ×2 (07:26→22:03)
[2018-05-01] MEDS: Budesonide 0.5 mg/2 ml Inhal Susp UD IH SCH ×2 (07:26→22:03)
[2018-05-01 07:35] LABS: BLOOD UREA NITROGEN 35 mg/dL (7-21); CALCIUM 8.2 mg/dL (8.4-10.5); GFR NON-AFRICAN AMERICAN > 60
[2018-05-01 08:50] LABS: HEMOGLOBIN 7.8 g/dL (14.0-18.0)
[2018-05-01 09:04] LABS: IRON 18 ug/dL (45-180)
[2018-05-01] MEDS: Mupirocin 2% Ointment 15 GM TUBE TOP SCH (10:11)
[2018-05-01] MEDS: Silver Sulfadiazine 1% Cream (25 gm) TP SCH (10:12)
[2018-05-01] MEDS: levETIRAcetam 500 mg/5ml UD cups PEG SCH ×2 (10:12→21:34)
[2018-05-01] MEDS: Collagenase 250 Units/gm Ointment(30 gm) TOP SCH (10:12)
[2018-05-01] MEDS: Magnesium Oxide 400 mg Tab UD PEG SCH ×2 (10:13→17:34)
[2018-05-01] MEDS: POLYETHYLENE GLYCOL 3350 17 GM/Dose PACKET PEG SCH ×2 (10:14→17:37)
[2018-05-01 10:23] LABS: % IRON SATURATION 11 % (20-55); TOTAL IRON BINDING CAPACITY 166 ug/dL (261-462)
--- NOTE | 2018-05-01 10:39 | CP.PCM.CON ---
<Walter Monreal - Last Filed: 05/01/18 12:47> History of Present Illness - History of Present Illness History of Present Illness: Walter Monreal DO PGY1 - Internal medicine [employer] - Surgery Consult Note As per previous surgery consult note 04/14/2018: 72M with past medical history of throat CA, A-fib on Eliquis, HTN , COPD,cirrhosis, dementia, TIA, and CVA with right sided hemiparesis, contr acture, recently admitted for Pneumonia and AMS. Currently patient presents to [facility] ED with AMS currently AAOx2 to person and place. General surgery was consulted for wound care. Of note patient was Patient is s/p left hip ulcer debridement on 03/28. PMH: as stated above PSH: right inguinal herniorrhaphy, left hip ulcer debridement, PEG All: NKDA ------ Surgery was reconsulted today 05/01 as patient was noted to be febrile. Patient denies any tenderness or change in sensation regarding ulceration of his left hip. Remainder ROS unobtainable due to AMS. Review of Systems - Review of Systems Systems not reviewed;Unavailable: Altered Mental Status Past Patient History - Infectious Disease Hx of Infectious Diseases: None - Past Medical History & Family History Past Medical History?: Yes - Past Social History Smoking Status: Unknown If Ever Smoked - CARDIAC Hx Pacemaker: No - PULMONARY Hx Chronic Obstructive Pulmonary Disease (COPD): Yes - NEUROLOGICAL HX Cerebrovascular Accident: Yes - HEENT Hx HEENT Problems: No - RENAL Hx Chronic Kidney Disease: No - ENDOCRINE/METABOLIC Hx Endocrine Disorders: No - HEMATOLOGICAL/ONCOLOGICAL Hx Cancer: No - INTEGUMENTARY Other/Comment: multiple ble skin discolorations - MUSCULOSKELETAL/RHEUMATOLOGICAL Hx Musculoskeletal Disorders: Yes - GASTROINTESTINAL Hx Gastrointestinal Disorders: Yes (L INGUINAL HERNIA) Hx Liver Failure: Yes (cirrhosis) - GENITOURINARY/GYNECOLOGICAL Hx Incontinence: Yes - PSYCHIATRIC Hx Emotional Abuse: No Hx Physical Abuse: No Hx Substance Use: No - SURGICAL HISTORY Hx Mastectomy: No - ANESTHESIA Hx Anesthesia: Yes Hx Anesthesia Reactions: No Hx Malignant Hyperthermia: No Meds Allergies/Adverse Reactions: Allergies Allergy/AdvReac Type Severity Reaction Status Date / Time No Known Allergies Allergy Verified 04/01/18 02:35 - Medications Medications: Current Medications Acetaminophen (Tylenol 650mg/20.3ml Solution Ud) 650 mg PO Q6H PRN PRN Reason: Pain, Mild (1-3) Acetaminophen (Tylenol 650mg/20.3ml Solution Ud) 650 mg PO Q6H PRN PRN Reason: fever Last Admin: 05/01/18 04:39 Dose: 650 mg Apixaban (Eliquis) 5 mg PEG BID [facility]; Protocol Last Admin: 05/01/18 10:12 Dose: 5 mg Arformoterol Tartrate (Brovana) 15 mcg I[facility] [id number] [facility] Last Admin: 05/01/18 07:26 Dose: 15 mcg Budesonide (Pulmicort Respules) 0.5 mg IH [id number] [facility] Last Admin: 05/01/18 07:26 Dose: 0.5 mg Collagenase (Santyl) 1 gm TOP DAILY [facility] Last Admin: 05/01/18 10:12 Dose: 1 applic Famotidine (Pepcid) 40 mg PEG HS [facility] Last Admin: 04/30/18 21:27 Dose: 40 mg Ferrous Gluconate (Fergon) 324 mg PO TID [facility] Last Admin: 05/01/18 10:12 Dose: 324 mg Meropenem (Merrem Iv 1 Gm Premix) 1 gm in 50 mls @ 100 mls/hr IVPB Q8 [facility]; Protocol Stop: 05/08/18 15:53 Last Admin: 05/01/18 05:08 Dose: 100 mls/hr Vancomycin HCl (Vancomycin 1gm) 1 gm in 250 mls @ 167 mls/hr IVPB Q12H [facility]; Protocol Stop: 05/08/18 16:01 Last Admin: 05/01/18 04:36 Dose: 167 mls/hr Ipratropium [place] (Atrovent) 0.5 mg IH Q12 [facility] Last Admin: 05/01/18 07:26 Dose: 0.5 mg Levetiracetam (Keppra) 500 mg PEG Q12 [facility] Last Admin: 05/01/18 10:12 Dose: 500 mg Magnesium Oxide (Mag-Ox) 400 mg PEG BID [facility] Last Admin: 05/01/18 10:13 Dose: 400 mg Metoprolol Tartrate (Lopressor) 100 mg PEG BID [facility] Last Admin: 05/01/18 10:15 Dose: 100 mg Polyethylene Glycol (Miralax) 17 gm PEG BID [facility] Last Admin: 05/01/18 10:14 Dose: Not Given Silver Sulfadiazine (Silvadene 1% 25 Gm) 1 gm TP BID [facility] Last Admin: 05/01/18 10:12 Dose: 1 gm Physical Exam - Constitutional Appears: Well, Non-toxic, Confused - Head Exam Head Exam: ATRAUMATIC, NORMOCEPHALIC - Eye Exam Eye Exam: EOMI, PERRL - ENT Exam ENT Exam: Mucous Membranes Moist - Respiratory Exam Respiratory Exam: Clear to Auscultation Bilateral, NORMAL BREATHING PATTERN - Cardiovascular Exam Cardiovascular Exam: RRR, +S1, +S2 - GI/Abdominal Exam GI & Abdominal Exam: Soft. absent: Tenderness Additional comments: Peg in place; functioning well; no erythema/discharge - Extremities Exam Additional comments: Stage 3 ulceration noted on left hip measuring 13cm x 6cm No significant discharge noted; Good granulation tissue appreciated on wound. Some fibrosing in center of ulcer appreciated; - Neurological Exam Neurological exam: Alert - Skin Skin Exam: Dry, Normal Color, Warm Results - Vital Signs Recent Vital Signs: Last Vital Signs Temp 102.4 F H 05/01/18 07:00 Pulse 116 H 05/01/18 10:15 Resp 18 05/01/18 07:00 BP 120/73 05/01/18 10:15 Pulse Ox 95 05/01/18 07:00 - Labs Result Diagrams: 05/01/18 08:05 05/01/18 06:30 Labs: Laboratory Results - last 24 hr 04/30/18 04/30/18 05/01/18 08:28 21:52 06:30 WBC 21.7 H D RBC 2.99 L Hgb 7.2 L Hct 23.2 L MCV 77.6 L MCH 24.1 L MCHC 31.0 RDW 16.9 H Plt Count 417 MPV 8.6 Sodium Potassium Chloride Carbon Dioxide Anion Gap BUN Creatinine Est GFR ( Amer) Est GFR (Non-Af Amer) Random Glucose Calcium Iron TIBC % Saturation Procalcitonin 3.62 H Influenza Typ A,B (EIA) Negative for flu a/b Blood Type Antibody Screen Crossmatch BBK History Checked 05/01/18 05/01/18 05/01/18 06:30 08:05 08:05 WBC RBC Hgb 7.8 L Hct 24.5 L MCV MCH MCHC RDW Plt Count MPV Sodium 136 Potassium 4.2 Chloride 106 Carbon Dioxide 26 Anion Gap 7 L BUN 35 H Creatinine 0.7 L Est GFR ( Amer) > 60 Est GFR (Non-Af Amer) > 60 Random Glucose 110 Calcium 8.2 L Iron TIBC % Saturation Procalcitonin Influenza Typ A,B (EIA) Blood Type O POSITIVE Antibody Screen Negative Crossmatch See Detail BBK History Checked Patient has bt 05/01/18 08:05 WBC RBC Hgb Hct MCV MCH MCHC RDW Plt Count MPV Sodium Potassium Chloride Carbon Dioxide Anion Gap BUN Creatinine Est GFR ( Amer) Est GFR (Non-Af Amer) Random Glucose Calcium Iron 18 L TIBC 166 L % Saturation 11 L Procalcitonin Influenza Typ A,B (EIA) Blood Type Antibody Screen Crossmatch BBK History Checked Assessment & Plan - Assessment and Plan (Free Text) Assessment: 72M admitted for dehydration and AMS, w/ multiple decubiti s/p left hip debride ment on 03/28/18. Surgery consulted for evaluation of left hip ulceration Plan: Left hip is less likely source of fevers; No erythema, edema, discharge, or tenderness appreciated around wound site. C/w local wound care over area; Wet to dry dressings w/ Datkins solution; Applied today 04/30 Remainder of management as per primary / podiatry Further reccs as per Dr. Alli Monreal DO PGY1 - Internal Medicine [employer] - Surgical Consult Note for Dr. Carson - Date & Time Date: 05/01/18 Time: 12:48 <Garcia Carson - Last Filed: 05/03/18 10:41> Meds - Medications Medications: Current Medications Acetaminophen (Tylenol 650mg/20.3ml Solution Ud) 650 mg PO Q6H PRN PRN Reason: Pain, Mild (1-3) Acetaminophen (Tylenol 650mg/20.3ml Solution Ud) 650 mg PO Q6H PRN PRN Reason: fever Last Admin: 05/01/18 04:39 Dose: 650 mg Acetylcysteine (Acetylcysteine 20%) 4 ml IH Q8H [facility] Last Admin: 05/03/18 08:18 Dose: 4 ml Apixaban (Eliquis) 5 mg PEG BID [facility]; Protocol Last Admin: 05/02/18 18:42 Dose: 5 mg Budesonide (Pulmicort Respules) 0.5 mg IH Q8 [facility] Last Admin: 05/03/18 08:19 Dose: 0.5 mg Collagenase (Santyl) 1 gm TOP DAILY [facility] Last Admin: 05/02/18 09:45 Dose: 1 applic Diltiazem HCl (Cardizem) 30 mg PEG Q6H [facility] Last Admin: 05/03/18 05:13 Dose: 30 mg Famotidine (Pepcid) 40 mg PEG HS [facility] Last Admin: 05/02/18 21:29 Dose: 40 mg Ferrous Gluconate (Fergon) 324 mg PO TID [facility] Last Admin: 05/02/18 18:37 Dose: 324 mg Furosemide (Lasix) 40 mg IVP DAILY [facility] Meropenem (Merrem Iv 1 Gm Premix) 1 gm in 50 mls @ 100 mls/hr IVPB Q8 [facility]; Protocol Stop: 05/08/18 15:53 Last Admin: 05/03/18 05:13 Dose: 100 mls/hr Vancomycin HCl (Vancomycin 1gm) 1 gm in 250 mls @ 167 mls/hr IVPB 1000,2200 [facility]; Protocol Stop: 05/08/18 16:01 Last Admin: 05/02/18 21:29 Dose: 167 mls/hr Ipratropium [place] (Atrovent) 0.5 mg IH TIDRESP [facility] Last Admin: 05/03/18 08:19 Dose: 0.5 mg Levalbuterol HCl (Xopenex) 1.25 mg IH [id number] PRN PRN Reason: Shortness of Breath Last Admin: 05/02/18 21:30 Dose: 1.25 mg Levetiracetam (Keppra) 500 mg PEG Q12 [facility] Last Admin: 05/02/18 21:29 Dose: 500 mg Magnesium Oxide (Mag-Ox) 400 mg PEG BID [facility] Last Admin: 05/02/18 18:40 Dose: 400 mg Metoprolol Tartrate (Lopressor) 100 mg PEG BID [facility] Last Admin: 05/02/18 18:41 Dose: 100 mg Polyethylene Glycol (Miralax) 17 gm PEG BID [facility] Last Admin: 05/02/18 18:43 Dose: Not Given Silver Sulfadiazine (Silvadene 1% 25 Gm) 1 gm TP BID [facility] Last Admin: 05/02/18 18:43 Dose: 1 gm Sodium Hypochlorite (Dakins Solution 0.25%) 0 ml TOP DAILY [facility] Last Admin: 05/02/18 09:40 Dose: 1 appl Results - Vital Signs Recent Vital Signs: Last Vital Signs Temp 98.2 F 05/03/18 06:00 Pulse 125 H 05/03/18 06:00 Resp 20 05/03/18 06:00 BP 128/63 05/03/18 06:00 Pulse Ox 94 L 05/03/18 06:00 - Labs Result Diagrams: 05/02/18 06:30 05/02/18 06:30 Labs: Laboratory Results - last 24 hr 05/02/18 05/03/18 06:30 06:20 NT-Pro-B Natriuret Pep 6680 H Procalcitonin 2.08 H Assessment & Plan - Assessment and Plan (Free Text) Plan: Dx Sepsis(UTI-Pneunomitis/Mult decubiti No evidence the decubiti are the source of the spiking temps-cons Rx recommended This consult done under my direct supervision Ngoc Carson MD FACS
[2018-05-01] MEDS: Dakin's Topical 0.25%-Half Strength (480 ml) TOP SCH (11:45)
--- NOTE | 2018-05-01 11:56 | PN ---
PULMONARY PROGRESS NOTE DATE: 05/01/2018 REFERRING PHYSICIAN: Dr. Fernandez. SUBJECTIVE: The patient is lying in bed, awake and alert, verbally responsive with some aphasia. No cough, sputum production, hemoptysis, emesis, hematuria, diarrhea reported. OBJECTIVE: VITAL SIGNS: Blood pressure 120/73, pulse 116, temperature 102.4, respirations 18 and oxygen saturation 95% on room air. GENERAL: No acute distress. HEENT: Moist mucous membranes. NECK: Supple. No JVD. CARDIOVASCULAR: S1 and S2. LUNGS: Few rhonchi bilaterally. ABDOMEN: Soft. Nontender. No organomegaly. G-tube in place. EXTREMITIES: No edema. Multiple pressure ulcer sites with dressing in place. NEUROLOGIC: Awake, alert, minimally verbal and aphasic. LABORATORY DATA: Reviewed. WBC 21.7, RBC 2.99, hemoglobin 7.2, hematocrit 23.2 and platelets 417. Sodium 136, potassium 4.2, chloride 106, carbon dioxide 26, anion gap 7, BUN 35, creatinine 0.7, GFR is greater than 60, random glucose 110, calcium 8.2, iron 18, TIBC 166, percent saturation 11. MEDICATIONS: Reviewed. Tylenol 650 mg every 6 hours p.r.n., Eliquis 5 mg twice a day, Brovana 15 mcg every 12 hours, Pulmicort 0.5 mg inhalation every 12 hours, Santyl to affected area daily, Pepcid 40 mg at bedtime, ferrous gluconate 324 mg three times a day, Atrovent 0.5 mg inhalation every 12 hours, Keppra 500 mg every 12 hours, magnesium oxide 400 mg twice a day, meropenem 1 g IV every 8 hours, metoprolol tartrate 100 mg twice a day, MiraLax 17 g twice a day, Silvadene 1 g twice a day to affected area, Dakin's solution daily to affected area, vancomycin 1 g IV every 12 hours. IMPRESSION AND PLAN: Healthcare-associated pneumonia, status post urinary tract infection. The patient also has multiple decubitus ulcers with lower extremity contractures, history of head and neck cancer requiring surgery in the past, stroke with hemiparesis, feeding difficulty requiring gastrostomy tube, recurrent urinary tract infection, history of cirrhotic liver, electrolyte imbalance, renal insufficiency, diabetes. The patient needs frequent repositioning while in bed, needs wound care followup, pulmonary point of view. Continue antibiotic therapy. Continue inhaled bronchodilators, pressure ulcer precaution, gastric prophylaxis, DVT prophylaxis, head of bed elevated 45 degrees. Overall prognosis is poor. The patient was seen and examined with Dr. Cruz. Discussed assessment and plan as described as above. Thank you for this consult. We will follow with you. Patient examined and chart reviewed. agree with assessmant and plan Bryn Rosa APN JAMES
--- NOTE | 2018-05-01 22:30 | PN ---
DATE: 05/01/2018 SUBJECTIVE: The patient is in bed, in no acute distress. When seen earlier today, the patient had a fever. PHYSICAL EXAMINATION: VITAL SIGNS: Temperature of 100.7, blood pressure is 101/50, respiratory rate of 18, heart rate of 121. HEENT: Unremarkable. NECK: Supple. LUNGS: Have decreased breath sounds. HEART: Normal S1, S2. ABDOMEN: Soft. LABORATORY EXAMINATION: Reveals a white count of 21,000, hemoglobin of 7. Chemistries reveal a BUN of 35, creatinine of 0.7. Urinalysis is noted. Serology is noted. Microbiology is reviewed. ASSESSMENT AND PLAN: This is a 72-year-old male with systemic inflammatory response syndrome, sepsis, healthcare-associated pneumonia, urinary tract infection with Pseudomonas aeruginosa from the urine, sensitive to piperacillin and sensitive to Cipro, intermediate to cefepime. The patient is currently on meropenem and vancomycin. We will continue the present course and we will follow with you. The patient with multiple medical problems. Efra Craig MD
--- NOTE | 2018-05-02 03:28 | PN ---
DATE: 05/01/2018 SUBJECTIVE: The patient was seen and examined at the bedside on 05/01/2018. The patient is looking comfortable. No cough. No sputum production. No hemoptysis. No hematemesis. No hematuria or diarrhea. The patient is awake and alert. Answering few questions. PHYSICAL EXAMINATION: VITAL SIGNS: Temperature 102.4, pulse 116, blood pressure 120/78, respiratory rate 18, oxygen saturation 95% on room air. HEENT: Head normocephalic, atraumatic. Eyes: PERRLA. Extraocular muscles are intact. Conjunctivae clear. Nose patent. NECK: Supple. No carotid bruit. No JVD or thyromegaly. CHEST: Bilaterally symmetrical. HEART: S1, S2 positive. LUNGS: Clear to auscultation. ABDOMEN: Soft, bowel sounds present. No organomegaly. EXTREMITIES: Multiple pressure ulcers with dressing in the place and has contractures. NEUROLOGIC: Awake, alert, answers few questions. LABORATORY DATA: White blood cells 21.7, hemoglobin 7.2, hematocrit 23.2, platelets 417. Sodium 136, potassium 4.2, BUN 35, creatinine 0.7, calcium 8.2. Iron 18. MEDICATIONS: Tylenol, Eliquis, Brovana, Pulmicort, Pepcid, ferrous gluconate, Atrovent, Keppra, magnesium oxide, meropenem, MiraLax, Silvadene, vancomycin. ASSESSMENT AND PLAN: Mr. Geo Ewing 72 years old male with multiple medical problems; healthcare-associated pneumonia, status post urinary tract infection; multiple decubitus ulcers with contracted lower extremities; history of cancer of the neck, has dysphagia, had a gastrostomy tube placement; history of stroke; history of cirrhotic liver; electrolytes imbalance and insufficiency; diabetes mellitus; anemia, acute on chronic, got blood transfusion. The patient needs frequent repositioning while in the bed, needs wound care followup. Continue antibiotics as per Infectious Disease; went for Doppler of the leg; we will do followup. I appreciated the input from filler room attendant and Infectious Disease. We will continue further treatment. Mariana Fernandez MD [facility] # [id number]
[2018-05-02] MEDS: Meropenem IV 1 gm in NS 1 GM/50 ML BAG IVPB SCH ×3 (05:03→21:28)
[2018-05-02] MEDS: Ipratropium 0.02% Inhal Soln (0.5 mg/2.5 ml) UD IH SCH ×4 (05:04→21:30)
[2018-05-02] MEDS: Silver Sulfadiazine 1% Cream (25 gm) TP SCH ×3 (05:31→18:43)
[2018-05-02 07:08] LABS: MEAN CELL VOLUME 79.6 fl (80.0-105.0); MEAN CORPUSCULAR HEMOGLOBIN 25.3 pg (25.0-35.0); MEAN CORPUSCULAR HGB CONC 31.7 g/dl (31.0-37.0); MEAN PLATELET VOLUME 8.7 fl (7.0-11.0); RBC 3.88 10^6/uL (3.5-6.1); RED CELL DISTRIBUTION WIDTH 17.5 % (11.5-14.5); WHITE BLOOD COUNT 18.7 10^3/uL (4.5-11.0)
[2018-05-02 07:15] LABS: HEMOGLOBIN 9.8 g/dL (14.0-18.0)
[2018-05-02] MEDS: Arformoterol 15 mcg/2 ml Inh Sol IH SCH (07:38)
[2018-05-02] MEDS: Budesonide 0.5 mg/2 ml Inhal Susp UD IH SCH ×3 (07:38→21:30)
[2018-05-02 07:40] LABS: BLOOD UREA NITROGEN 45 mg/dL (7-21); CALCIUM 8.9 mg/dL (8.4-10.5); GFR NON-AFRICAN AMERICAN > 60
--- NOTE | 2018-05-02 09:18 | RAD ---
Date of service: 05/02/2018 HISTORY: follow up infiltrate COMPARISON: 04/29/2018 FINDINGS: LUNGS: Increasing infiltrate at the left lung base. Improved infiltrate on the right PLEURA: No significant pleural effusion identified, no pneumothorax apparent. CARDIOVASCULAR: No aortic atherosclerotic calcification present. Mild to moderate cardiomegaly no pulmonary vascular congestion. OSSEOUS STRUCTURES: No significant abnormalities. VISUALIZED UPPER ABDOMEN: Normal. OTHER FINDINGS: None. IMPRESSION: Increasing infiltrate at the left lung base. Improved infiltrate on the right
[2018-05-02] MEDS: levETIRAcetam 500 mg/5ml UD cups PEG SCH ×2 (09:39→21:29)
[2018-05-02] MEDS: Magnesium Oxide 400 mg Tab UD PEG SCH ×2 (09:40→18:40)
[2018-05-02] MEDS: Dakin's Topical 0.25%-Half Strength (480 ml) TOP SCH (09:40)
[2018-05-02] MEDS: Vancomycin 1gm in NS 250ml 1 GM/250 ML BAG IVPB SCH ×2 (09:44→21:29)
[2018-05-02] MEDS: Collagenase 250 Units/gm Ointment(30 gm) TOP SCH (09:45)
[2018-05-02] MEDS: POLYETHYLENE GLYCOL 3350 17 GM/Dose PACKET PEG SCH ×2 (09:46→18:43)
--- NOTE | 2018-05-02 10:14 | US ---
HISTORY: Leg pain and swelling. Evaluate for DVT PHYSICIAN(S): Taye Meraz MD. TECHNIQUE: Duplex sonography and color-flow Doppler with graded compression were used to evaluate the deep venous systems of both lower extremities. The exam is limited by edema in the patient's inability to cooperate. FINDINGS: The visualized deep venous systems of both lower extremities are sonographically normal and compressible. Normal wave forms and augmentation are seen. There is no sonographic evidence for deep venous thrombosis in the visualized segments of both lower extremities. IMPRESSION: No sonographic evidence for deep venous thrombosis in the visualized segments of both lower extremities. Limited study.
--- NOTE | 2018-05-02 11:47 | CP.PCM.PN ---
Subjective - Date & Time of Evaluation Date of Evaluation: 05/02/18 Time of Evaluation: 11:46 - Subjective Subjective: Walter Monreal DO PGY1 - Internal Medicine Curriculum Consultant - Surgical Progress Note Patient was seen and examined at the bedside this morning. No acute events overnight; Afebrile overnight Nursing did report patient was febrile yesterday afternoon. No changes reported regarding sacral decubitus ulcer ROS unobtainable 2/2 AMS. Objective - Vital Signs/Intake and Output Vital Signs (last 24 hours): Temp Pulse Resp BP Pulse Ox 98.7 F 123 H 18 140/89 96 05/02/18 06:00 05/02/18 09:41 05/02/18 06:00 05/02/18 09:41 05/02/18 06:00 Intake and Output: 05/02/18 05/02/18 06:59 18:59 Intake Total 0 Output Total 1020 Balance -1020 - Medications Medications: Current Medications Acetaminophen (Tylenol 650mg/20.3ml Solution Ud) 650 mg PO Q6H PRN PRN Reason: Pain, Mild (1-3) Acetaminophen (Tylenol 650mg/20.3ml Solution Ud) 650 mg PO Q6H PRN PRN Reason: fever Last Admin: 05/01/18 04:39 Dose: 650 mg Apixaban (Eliquis) 5 mg PEG BID [facility]; Protocol Last Admin: 05/02/18 09:40 Dose: 5 mg Arformoterol Tartrate (Brovana) 15 mcg IH [id number] [facility] Last Admin: 05/02/18 07:38 Dose: 15 mcg Budesonide (Pulmicort Respules) 0.5 mg IH [id number] [facility] Last Admin: 05/02/18 07:38 Dose: 0.5 mg Collagenase (Santyl) 1 gm TOP DAILY [facility] Last Admin: 05/02/18 09:45 Dose: 1 applic Famotidine (Pepcid) 40 mg PEG HS [facility] Last Admin: 05/01/18 21:34 Dose: 40 mg Ferrous Gluconate (Fergon) 324 mg PO TID [facility] Last Admin: 05/02/18 09:39 Dose: 324 mg Meropenem (Merrem Iv 1 Gm Premix) 1 gm in 50 mls @ 100 mls/hr IVPB Q8 [facility]; Protocol Stop: 05/08/18 15:53 Last Admin: 05/02/18 05:03 Dose: 100 mls/hr Vancomycin HCl (Vancomycin 1gm) 1 gm in 250 mls @ 167 mls/hr IVPB 1000,2200 [facility]; Protocol Stop: 05/08/18 16:01 Last Admin: 05/02/18 09:44 Dose: 167 mls/hr Ipratropium [place] (Atrovent) 0.5 mg IH Q12 [facility] Last Admin: 05/02/18 07:38 Dose: 0.5 mg Levetiracetam (Keppra) 500 mg PEG Q12 [facility] Last Admin: 05/02/18 09:39 Dose: 500 mg Magnesium Oxide (Mag-Ox) 400 mg PEG BID [facility] Last Admin: 05/02/18 09:40 Dose: 400 mg Metoprolol Tartrate (Lopressor) 100 mg PEG BID [facility] Last Admin: 05/02/18 09:41 Dose: 100 mg Polyethylene Glycol (Miralax) 17 gm PEG BID [facility] Last Admin: 05/02/18 09:46 Dose: Not Given Silver Sulfadiazine (Silvadene 1% 25 Gm) 1 gm TP BID [facility] Last Admin: 05/02/18 09:45 Dose: 1 gm Sodium Hypochlorite (Dakins Solution 0.25%) 0 ml TOP DAILY [facility] Last Admin: 05/02/18 09:40 Dose: 1 appl - Labs Labs: 05/02/18 06:30 05/02/18 06:30 PT 16.5 SECONDS (9.4-12.5) H 04/13/18 10:50 INR 1.42 04/13/18 10:50 APTT 28.7 Seconds (25.1-36.5) 04/13/18 10:50 Physical Exam - Constitutional Appears: Well, Non-toxic, Confused - Head Exam Head Exam: ATRAUMATIC, NORMOCEPHALIC - Eye Exam Eye Exam: EOMI, PERRL - ENT Exam ENT Exam: Mucous Membranes Moist - Respiratory Exam Respiratory Exam: Clear to Auscultation Bilateral, NORMAL BREATHING PATTERN - Cardiovascular Exam Cardiovascular Exam: RRR, +S1, +S2 - GI/Abdominal Exam GI & Abdominal Exam: Soft. absent: Tenderness Additional comments: Peg in place; functioning well; no erythema/discharge - Extremities Exam Additional comments: Stage 3 ulceration noted on left hip measuring 13cm x 6cm No significant discharge noted; Good granulation tissue appreciated on wound. Some fibrosing in center of ulcer appreciated; - Neurological Exam Neurological exam: Alert - Skin Skin Exam: Dry, Normal Color, Warm Assessment and Plan - Assessment and Plan (Free Text) Assessment: 72M admitted for dehydration and AMS, w/ multiple decubiti s/p left hip debridement on 03/28/18. Surgery consulted for evaluation of left hip ulceration Plan: Left hip is less likely source of fevers; No erythema, edema, discharge, or tenderness appreciated around wound site. C/w local wound care over area; C/w Wet to dry dressings w/ Datkins solution; Will change dressing today. Remainder of management as per primary / podiatry Further reccs as per Dr. Alli Monreal DO PGY1 - Internal Medicine Curriculum Consultant - Surgical Consult Note for Dr. Carson
--- NOTE | 2018-05-02 13:18 | PN ---
DATE: 05/02/2018 SUBJECTIVE: Patient is sitting up in bed. No acute distress. Nursing staff reports that patient received 1 unit of blood yesterday. No overnight events reported. No headache, rhinitis, shortness of breath, chest pain, abdominal pain, nausea, vomiting, diarrhea, leg pain, leg swelling reported. Nursing staff does report that the patient has moist nonproductive cough. OBJECTIVE: GENERAL: No acute distress. VITAL SIGNS: Blood pressure 140/89, pulse 123, temperature 98.7, pulse ox 96% on room air. HEENT: Moist mucous membranes. NECK: Supple. No JVD. CARDIOVASCULAR: Tachycardic. S1, S2 audible. LUNGS: Few rhonchi bilaterally. ABDOMEN: Soft, nontender. Gastrostomy tube in place. No organomegaly. EXTREMITIES: No edema. Multiple pressure ulcer sites with dressing in place. NEUROLOGIC: Awake, alert, verbal, has aphasia. LABORATORY DATA: Reviewed. WBC 18.7, hemoglobin 9.8, hematocrit 30.9, platelets 421. Sodium 141, potassium 4.3, chloride 110, carbon dioxide 29, anion gap 7. BUN 45, creatinine 0.7, GFR is greater than 60, random glucose 113. Calcium 8.9. Stool for occult blood negative. Chest x-ray showed increasing infiltrate at the left lung base, improved infiltrate on the right. Ultrasound of the extremities shows no sonographic evidence of deep venous thrombosis in both lower extremities. MEDICATIONS: Reviewed. Tylenol 650 mg every 6 hours as needed for mild pain, Tylenol 650 mg every 6 hours as needed for fever, Eliquis 5 mg twice a day, Brovana 15 mcg inhalation every 12 hours, Pulmicort 0.5 mg inhalation every 12 hours, Santyl topically to affected area daily, Pepcid 40 mg at bedtime, ferrous gluconate 324 mg three times a day, Atrovent 0.5 mg inhalation every 12 hours, Keppra 500 mg every 12 hours, magnesium oxide 400 mg twice a day, meropenem 1 g IV every 8 hours, metoprolol tartrate 100 mg twice a day, MiraLax 17 g twice a day, Silvadene topically twice a day to affected area, Dakin's solution topically to affected area, vancomycin 1 g twice a day IV. IMPRESSION AND PLAN: Healthcare-associated pneumonia, status post urinary tract infection. Patient also has multiple decubitus ulcers with lower extremity contractures, history of head and neck cancer requiring surgery in the past, stroke with hemiparesis, feeding difficulty requiring gastrostomy tube, recurrent urinary tract infection, history of cirrhotic liver, electrolyte imbalance, renal insufficiency, diabetes. From pulmonary point of view; we will discontinue Brovana and change Atrovent, Pulmicort, Mucomyst to every 8 hours. We will add Cardizem 30 mg every 6 hours for tachycardia, atrial flutter. Patient needs frequent repositioning while in bed. Needs wound care followup. Continue antibiotic therapy. Continue inhaled bronchodilators, pressure ulcer precaution, gastric prophylaxis, deep venous thrombosis prophylaxis, head of bed elevated 45 degrees. This patient was seen and examined with Dr. Cruz. Discussed assessment and plan as described above. Thank you for this consult. We will follow with you. Bryn Rosa APN Fatoumata Cruz MD
--- NOTE | 2018-05-02 13:25 | CP.PCM.PN ---
<Jorden Rome - Last Filed: 05/02/18 13:18> Subjective - Date & Time of Evaluation Date of Evaluation: 05/02/18 Time of Evaluation: 13:18 - Subjective Subjective: Podiatry progress note for attending Dr. Herndon 72 y/o M patient seen and evaluated at the bedside for bilateral lower extremity wounds and blisters. Patient was awake during evaluation. As per his nurse he didn't have any fever overnight and today. Patient is a poor historian. As per his nurse patient seen by his medicine team who changed his dressing today. Patient in a contracted position. Patient was not wearing his multipodus boot during exam time. B/L LE focused exam: Vasc: DP/PT pulses faintly palpable 1/4 b/l. Skin temperature warm to warm from proximal to distal. Cap refill < 3 seconds to all digits b/l. No edema noted b/l Neuro: unable to assess. Patient is not cooperative Derm: Dressing left intact as it was changed today by the medicine team. MSK: Minimal tenderness on palpation to left heel. Rigid contracture of all digits 1-5 b/l. Otherwise, no gross deformities noted. Unable to assess muscle strength secondary to patient mental status. Pain with attempt to change the patient position to change the dressing 72 y/o M patient seen and evaluated at the bedside for bilateral lower extremity wounds and blisters Patient seen and evaluated at the bedside with Yanick Her Plans discussed with Dr. Herndon Charts, labs and vitals reviewed; Patient is febrile 101.3, WBCs 17.3 Dressing left intact as it was changed today by the medicine team. Multipodus boots recommended for patient at all times Podiatry will change dressings every MWF and will continue to follow up the patient while in house Objective - Vital Signs/Intake and Output Vital Signs (last 24 hours): Temp Pulse Resp BP Pulse Ox 98.7 F 123 H 18 140/89 96 05/02/18 06:00 05/02/18 09:41 05/02/18 06:00 05/02/18 09:41 05/02/18 06:00 Intake and Output: 05/02/18 05/02/18 06:59 18:59 Intake Total 0 Output Total 1020 Balance -1020 - Medications Medications: Current Medications Acetaminophen (Tylenol 650mg/20.3ml Solution Ud) 650 mg PO Q6H PRN PRN Reason: Pain, Mild (1-3) Acetaminophen (Tylenol 650mg/20.3ml Solution Ud) 650 mg PO Q6H PRN PRN Reason: fever Last Admin: 05/01/18 04:39 Dose: 650 mg Acetylcysteine (Acetylcysteine 20%) 4 ml IH Q8H [facility] Apixaban (Eliquis) 5 mg PEG BID [facility]; Protocol Last Admin: 05/02/18 09:40 Dose: 5 mg Budesonide (Pulmicort Respules) 0.5 mg IH Q8 [facility] Collagenase (Santyl) 1 gm TOP DAILY [facility] Last Admin: 05/02/18 09:45 Dose: 1 applic Diltiazem HCl (Cardizem) 30 mg PEG Q6H [facility] Famotidine (Pepcid) 40 mg PEG HS [facility] Last Admin: 05/01/18 21:34 Dose: 40 mg Ferrous Gluconate (Fergon) 324 mg PO TID [facility] Last Admin: 05/02/18 09:39 Dose: 324 mg Meropenem (Merrem Iv 1 Gm Premix) 1 gm in 50 mls @ 100 mls/hr IVPB Q8 [facility]; Protocol Stop: 05/08/18 15:53 Last Admin: 05/02/18 05:03 Dose: 100 mls/hr Vancomycin HCl (Vancomycin 1gm) 1 gm in 250 mls @ 167 mls/hr IVPB 1000,2200 [facility]; Protocol Stop: 05/08/18 16:01 Last Admin: 05/02/18 09:44 Dose: 167 mls/hr Ipratropium [place] (Atrovent) 0.5 mg IH TIDRESP [facility] Levalbuterol HCl (Xopenex) 1.25 mg IH [id number] PRN PRN Reason: Shortness of Breath Levetiracetam (Keppra) 500 mg PEG Q12 [facility] Last Admin: 05/02/18 09:39 Dose: 500 mg Magnesium Oxide (Mag-Ox) 400 mg PEG BID [facility] Last Admin: 05/02/18 09:40 Dose: 400 mg Metoprolol Tartrate (Lopressor) 100 mg PEG BID [facility] Last Admin: 05/02/18 09:41 Dose: 100 mg Polyethylene Glycol (Miralax) 17 gm PEG BID [facility] Last Admin: 05/02/18 09:46 Dose: Not Given Silver Sulfadiazine (Silvadene 1% 25 Gm) 1 gm TP BID [facility] Last Admin: 05/02/18 09:45 Dose: 1 gm Sodium Hypochlorite (Dakins Solution 0.25%) 0 ml TOP DAILY [facility] Last Admin: 05/02/18 09:40 Dose: 1 appl - Labs Labs: 05/02/18 06:30 05/02/18 06:30 PT 16.5 SECONDS (9.4-12.5) H 04/13/18 10:50 INR 1.42 04/13/18 10:50 APTT 28.7 Seconds (25.1-36.5) 04/13/18 10:50 - Head Exam Head Exam: ATRAUMATIC, NORMOCEPHALIC - Extremities Exam Additional comments: B/L LE focused exam: Vasc: DP/PT pulses faintly palpable 1/4 b/l. Skin temperature warm to warm from proximal to distal. Cap refill < 3 seconds to all digits b/l. No edema noted b/l Neuro: unable to assess. Patient is not cooperative Derm: Dressing left intact as it was changed today by the medicine team. MSK: Minimal tenderness on palpation to left heel. Rigid contracture of all digits 1-5 b/l. Otherwise, no gross deformities noted. Unable to assess muscle strength secondary to patient mental status. Pain with attempt to change the patient position to change the dressing - Neurological Exam Neurological Exam: Alert, Awake Assessment and Plan - Assessment and Plan (Free Text) Assessment: 72 y/o M patient seen and evaluated at the bedside for bilateral lower extremity wounds and blisters Plan: Patient seen and evaluated at the bedside with Yanick Her Plans discussed with Dr. Herndon Charts, labs and vitals reviewed; Patient is febrile 101.3, WBCs 18.7 Dressing left intact as it was changed today by the medicine team. Multipodus boots recommended for patient at all times Podiatry will change dressings every MWF and will continue to follow up the patient while in house <Mona Herndon - Last Filed: 05/04/18 15:06> Objective - Vital Signs/Intake and Output Vital Signs (last 24 hours): Temp Pulse Resp BP Pulse Ox 101.1 F H 129 H 18 101/53 L 92 L 05/04/18 14:00 05/04/18 14:00 05/04/18 14:00 05/04/18 14:00 05/04/18 14:00 Intake and Output: 05/04/18 05/04/18 06:59 18:59 Intake Total 0 Output Total 2300 Balance -2300 - Medications Medications: Current Medications Acetaminophen (Tylenol 650mg/20.3ml Solution Ud) 650 mg PO Q6H PRN PRN Reason: Pain, Mild (1-3) Acetaminophen (Tylenol 650mg/20.3ml Solution Ud) 650 mg PO Q6H PRN PRN Reason: fever Last Admin: 05/01/18 04:39 Dose: 650 mg Acetylcysteine (Acetylcysteine 20%) 4 ml IH Q8H [facility] Last Admin: 05/04/18 14:27 Dose: 4 ml Apixaban (Eliquis) 5 mg PEG BID [facility]; Protocol Last Admin: 05/04/18 10:43 Dose: 5 mg Budesonide (Pulmicort Respules) 0.5 mg IH Q8 [facility] Last Admin: 05/04/18 14:28 Dose: 0.5 mg Digoxin (Lanoxin) 0.25 mg PO 1400 [facility] Diltiazem HCl (Cardizem) 30 mg PEG Q6H [facility] Last Admin: 05/03/18 12:07 Dose: 30 mg Famotidine (Pepcid) 40 mg PEG HS [facility] Last Admin: 05/03/18 21:44 Dose: 40 mg Ferrous Gluconate (Fergon) 324 mg PO TID [facility] Last Admin: 05/04/18 10:43 Dose: 324 mg Furosemide (Lasix) 40 mg IVP DAILY [facility] Last Admin: 05/04/18 10:44 Dose: 40 mg Meropenem (Merrem Iv 1 Gm Premix) 1 gm in 50 mls @ 100 mls/hr IVPB Q8 [facility]; Protocol Stop: 05/08/18 15:53 Last Admin: 05/04/18 05:32 Dose: 100 mls/hr Vancomycin HCl (Vancomycin 1gm) 1 gm in 250 mls @ 167 mls/hr IVPB 1000,2200 [facility]; Protocol Stop: 05/08/18 16:01 Last Admin: 05/04/18 10:45 Dose: 167 mls/hr Ipratropium [place] (Atrovent) 0.5 mg IH TIDRESP [facility] Last Admin: 05/04/18 14:28 Dose: 0.5 mg Levalbuterol HCl (Xopenex) 1.25 mg IH [id number] PRN PRN Reason: Shortness of Breath Last Admin: 05/04/18 11:31 Dose: 1.25 mg Levetiracetam (Keppra) 500 mg PEG Q12 [facility] Last Admin: 05/04/18 10:43 Dose: 500 mg Magnesium Oxide (Mag-Ox) 400 mg PEG BID [facility] Last Admin: 05/04/18 10:44 Dose: 400 mg Metoprolol Tartrate (Lopressor) 100 mg PEG BID [facility] Last Admin: 05/03/18 11:08 Dose: 100 mg Mupirocin (Bactroban Ointment) 0 gm NS BID [facility] Stop: 05/07/18 18:01 Last Admin: 05/04/18 10:44 Dose: 1 appl Sodium Hypochlorite (Dakins Solution 0.25%) 0 ml TOP DAILY [facility] Last Admin: 05/04/18 10:44 Dose: 1 appl Verapamil HCl (Calan Tab) 40 mg PO TID [facility] Last Admin: 05/04/18 10:47 Dose: 40 mg - Labs Labs: 05/04/18 06:45 05/04/18 06:45 PT 16.5 SECONDS (9.4-12.5) H 04/13/18 10:50 INR 1.42 04/13/18 10:50 APTT 28.7 Seconds (25.1-36.5) 04/13/18 10:50 Attending/Attestation - Attestation I have personally seen and examined this patient.: Yes I have fully participated in the care of the patient.: Yes I have reviewed all pertinent clinical information, including history, physical exam and plan: Yes
[2018-05-02] MEDS: Acetylcysteine 20% Inhal Soln (4ml) IH SCH ×2 (13:34→21:30)
[2018-05-02] MEDS: Levalbuterol 1.25 MG/3 ML Inhal Soln UD IH PRN ×2 (13:34→21:30)
--- NOTE | 2018-05-02 16:29 | CP.PCM.PN ---
Subjective - Date & Time of Evaluation Date of Evaluation: 05/02/18 Time of Evaluation: 08:50 - Subjective Subjective: No fevers this morning, not in distress, more awake today. Objective - Vital Signs/Intake and Output Vital Signs (last 24 hours): Temp Pulse Resp BP Pulse Ox 99 F 121 H 20 116/60 98 05/02/18 13:34 05/02/18 14:38 05/02/18 13:34 05/02/18 14:38 05/02/18 13:34 Intake and Output: 05/02/18 05/02/18 06:59 18:59 Intake Total 0 Output Total 1020 Balance -1020 - Medications Medications: Current Medications Acetaminophen (Tylenol 650mg/20.3ml Solution Ud) 650 mg PO Q6H PRN PRN Reason: Pain, Mild (1-3) Acetaminophen (Tylenol 650mg/20.3ml Solution Ud) 650 mg PO Q6H PRN PRN Reason: fever Last Admin: 05/01/18 04:39 Dose: 650 mg Acetylcysteine (Acetylcysteine 20%) 4 ml IH Q8H [facility] Last Admin: 05/02/18 13:34 Dose: 4 ml Apixaban (Eliquis) 5 mg PEG BID [facility]; Protocol Last Admin: 05/02/18 09:40 Dose: 5 mg Budesonide (Pulmicort Respules) 0.5 mg IH Q8 [facility] Last Admin: 05/02/18 13:34 Dose: 0.5 mg Collagenase (Santyl) 1 gm TOP DAILY [facility] Last Admin: 05/02/18 09:45 Dose: 1 applic Diltiazem HCl (Cardizem) 30 mg PEG Q6H [facility] Last Admin: 05/02/18 14:38 Dose: 30 mg Famotidine (Pepcid) 40 mg PEG HS [facility] Last Admin: 05/01/18 21:34 Dose: 40 mg Ferrous Gluconate (Fergon) 324 mg PO TID [facility] Last Admin: 05/02/18 14:39 Dose: 324 mg Meropenem (Merrem Iv 1 Gm Premix) 1 gm in 50 mls @ 100 mls/hr IVPB Q8 [facility]; Protocol Stop: 05/08/18 15:53 Last Admin: 05/02/18 14:39 Dose: 100 mls/hr Vancomycin HCl (Vancomycin 1gm) 1 gm in 250 mls @ 167 mls/hr IVPB 1000,2200 [facility]; Protocol Stop: 05/08/18 16:01 Last Admin: 05/02/18 09:44 Dose: 167 mls/hr Ipratropium [place] (Atrovent) 0.5 mg IH TIDRESP [facility] Last Admin: 05/02/18 13:34 Dose: 0.5 mg Levalbuterol HCl (Xopenex) 1.25 mg IH [id number] PRN PRN Reason: Shortness of Breath Last Admin: 05/02/18 13:34 Dose: 1.25 mg Levetiracetam (Keppra) 500 mg PEG Q12 [facility] Last Admin: 05/02/18 09:39 Dose: 500 mg Magnesium Oxide (Mag-Ox) 400 mg PEG BID [facility] Last Admin: 05/02/18 09:40 Dose: 400 mg Metoprolol Tartrate (Lopressor) 100 mg PEG BID [facility] Last Admin: 05/02/18 09:41 Dose: 100 mg Polyethylene Glycol (Miralax) 17 gm PEG BID [facility] Last Admin: 05/02/18 09:46 Dose: Not Given Silver Sulfadiazine (Silvadene 1% 25 Gm) 1 gm TP BID [facility] Last Admin: 05/02/18 09:45 Dose: 1 gm Sodium Hypochlorite (Dakins Solution 0.25%) 0 ml TOP DAILY [facility] Last Admin: 05/02/18 09:40 Dose: 1 appl - Labs Labs: 05/02/18 06:30 05/02/18 06:30 PT 16.5 SECONDS (9.4-12.5) H 04/13/18 10:50 INR 1.42 04/13/18 10:50 APTT 28.7 Seconds (25.1-36.5) 04/13/18 10:50 - Constitutional Appears: Cachectic, Chronically Ill - Head Exam Head Exam: NORMAL INSPECTION - Neck Exam Neck Exam: absent: Meningismus - Respiratory Exam Respiratory Exam: Decreased Breath Sounds - Cardiovascular Exam Cardiovascular Exam: +S1, +S2 - GI/Abdominal Exam GI & Abdominal Exam: Soft. absent: Tenderness Assessment and Plan - Assessment and Plan (Free Text) Plan: Assessment systemic inflammatory response syndrome consider sepsis due to HCAP and UTI with Pseudomonas due to multiple sacral ulcers, grew Pseudomonas history of sepsis due to right lower lobe HCAP with ESBL E. coli left hip wound infection HTN COPD atrial fibrillation throat cancer dementia history of CVA of left frontal lobe liver cirrhosis Plan continue Vancomycin and Merrem day 4 up to 7 days of therapy - continue to trend fever curve overall prognosis is poor
--- NOTE | 2018-05-03 02:37 | PN ---
DATE: 05/02/2018 SUBJECTIVE: The patient is a 72-year-old male. The patient was seen and examined at the bedside on 05/02/2018, looking comfortable. No change in the status. No headache. No dizziness. No nausea, vomiting, diarrhea. PHYSICAL EXAMINATION VITAL SIGNS: Temperature 98.6, blood pressure 130/80, pulse 120, pulse oximetry noted on room air. HEENT: Head: Normocephalic, atraumatic. Eyes: PERRLA. Extraocular muscles are intact. Conjunctivae clear. Nose patent. Mucous membranes moist. NECK: Supple. No carotid bruit. No JVD or thyromegaly. CHEST: Bilaterally symmetrical. HEART: S1 and S2 positive. LUNGS: Clear to auscultation. ABDOMEN: Soft. Bowel sounds present. No organomegaly. EXTREMITIES: No edema. No cyanosis. NEUROLOGIC: The patient is awake, alert. The patient does not follow command. LABORATORY DATA: White blood cells 18.7, hemoglobin 9.8, hematocrit 30.6, platelets 421. Sodium 141, potassium 4.3, BUN 45, creatinine 0.7, calcium 8.9. ASSESSMENT AND PLAN: Mr. Geo Ewing, 72-year-old male, with multiple medical problems: Healthcare-associated pneumonia, status post urinary tract infection; multiple decubitus ulcers in the lower extremity and in the sacral area; has lower extremity contractures; history of head and neck cancer, requiring surgery in the past; stroke with hemiparesis; feeding difficulty, requiring gastrostomy tube; recurrent urinary tract infection; history of cirrhotic liver; electrolyte imbalance; renal insufficiency; diabetes mellitus. Continue Keppra, magnesium oxide, meropenem, metoprolol, MiraLax, Silvadene. Gastrointestinal, deep venous thrombosis prophylaxis. Appreciated Dr. Cruz's input. Repeat labs. Reviewed Infectious Disease notes also. We will follow up. Mariana Fernandez MD MTDJaclyn
[2018-05-03] MEDS: Meropenem IV 1 gm in NS 1 GM/50 ML BAG IVPB SCH ×3 (05:13→21:44)
[2018-05-03] MEDS: Acetylcysteine 20% Inhal Soln (4ml) IH SCH ×3 (08:18→21:07)
[2018-05-03] MEDS: Budesonide 0.5 mg/2 ml Inhal Susp UD IH SCH ×2 (08:19→21:07)
[2018-05-03] MEDS: Ipratropium 0.02% Inhal Soln (0.5 mg/2.5 ml) UD IH SCH ×3 (08:19→21:07)
[2018-05-03] MEDS: levETIRAcetam 500 mg/5ml UD cups PEG SCH ×2 (11:03→21:44)
[2018-05-03] MEDS: Magnesium Oxide 400 mg Tab UD PEG SCH ×2 (11:04→18:39)
[2018-05-03] MEDS: Dakin's Topical 0.25%-Half Strength (480 ml) TOP SCH (11:06)
[2018-05-03] MEDS: Collagenase 250 Units/gm Ointment(30 gm) TOP SCH (11:06)
[2018-05-03] MEDS: Silver Sulfadiazine 1% Cream (25 gm) TP SCH (11:07)
[2018-05-03] MEDS: Vancomycin 1gm in NS 250ml 1 GM/250 ML BAG IVPB SCH ×2 (11:07→22:34)
[2018-05-03] MEDS: POLYETHYLENE GLYCOL 3350 17 GM/Dose PACKET PEG SCH ×2 (11:08→18:41)
--- NOTE | 2018-05-03 11:23 | CP.PCM.PCO ---
Physician Communication Note - Physician Communication Note Physician Communication Note: Simplifying wound Rx:Bactroban to ALL decubiti
[2018-05-03] MEDS: Mupirocin 2% Ointment 15 GM TUBE NS SCH ×2 (12:08→18:40)
--- NOTE | 2018-05-03 12:52 | PN ---
DATE: 05/03/2018 PULMONARY PROGRESS NOTE REFERRING PHYSICIAN: Dr Fernandez. SUBJECTIVE: The patient is sitting up in bed, in no acute distress. Moist cough continues. No overnight events reported. No headache, rhinitis, shortness of breath, chest pain, abdominal pain, nausea, vomiting, diarrhea, leg pain or leg swelling reported. OBJECTIVE: VITAL SIGNS: Blood pressure 110/65, pulse rate 115, respiratory rate 20, oxygen saturation 94 percent on room air. GENERAL: No acute distress. HEENT: Moist mucous membranes. NECK: Supple. No JVD. CARDIOVASCULAR: Tachycardic. LUNGS: Rhonchi bilaterally. No wheeze audible. ABDOMEN: Soft and nontender. Gastrostomy tube in place. No organomegaly. EXTREMITIES: No edema bilaterally. Multiple wound sites with dressing in place. NEUROLOGIC: Awake, alert, aphasic. LABORATORY DATA: Reviewed. Sodium 141, potassium 4.3, chloride 110, carbon dioxide 29, anion gap 7, BUN 45, creatinine 0.7, random glucose 113, GFR is greater than 60. Calcium 8.9; proBNP 6680; procalcitonin 2.08. MEDICATIONS: Reviewed. Tylenol 650 mg every 6 hours as needed for fever, Mucomyst 4 mL inhalation every 8 hours, Eliquis 5 mg twice a day, Pulmicort 0.5 mg inhalation every 8 hours, Cardizem 30 mg every 6 hours, Pepcid 40 mg at bedtime, ferrous gluconate 324 mg three times a day, Lasix 40 mg IV push daily, Ativan 0.5 mg inhalation three times a day, Xopenex 1.25 mg inhalation every 6 hours as needed, Keppra 500 mg every 12 hours, magnesium oxide 400 mg twice a day, meropenem 1 g every 8 hours, metoprolol tartrate 100 mg twice a day, Bactroban twice a day for affected area, MiraLax 17 g twice a day, Dakin's solution daily to affected area, vancomycin 1 g twice a day. IMPRESSION AND PLAN: Healthcare-associated pneumonia, status post urinary tract infection. The patient has multiple decubitus ulcers to lower extremities with lower extremity contractures, history of head and neck cancer requiring surgery in the past, stroke with hemiparesis, feeding difficulty requiring gastrostomy tube, recurrent urinary tract infection, history of cirrhotic liver, electrolyte imbalance, renal insufficiency, diabetes mellitus. Pulmonary point of view, continue inhaled bronchodilators. The patient needs frequent repositioning while in bed, wound care followup, continue antibiotic therapy, pressure ulcer precaution, gastric prophylaxis, deep venous thrombosis prophylaxis, head of bed elevated at 45 degrees. Echo from 07/2017 reviewed showing ejection fraction 25 percent, RVSP 48. Due to elevated proBNP, we recommend not continue with IV fluids at this time. Continue with Lasix. Need to monitor BUN and creatinine. This patient was seen and examined with Dr. Cruz. Discussed assessment and plan as described above. Thank you for this consult. We will follow with you. Bryn Rosa APN JAMES
[2018-05-03] MEDS ORDERED: Albumin Human 25% (12.5 gm/50 ml) IV ONE ×2 (12:57→13:30)
[2018-05-03] MEDS ORDERED: Digoxin 500 mcg/2ml (0.5 mg/2ml) Inj IVP ONE ×2 (12:57→16:00)
--- NOTE | 2018-05-03 15:37 | RAD ---
Date of service: 05/03/2018 PROCEDURE: CHEST RADIOGRAPH, 1 VIEW HISTORY: F/U pneumonia and compare COMPARISON: 05/02/2018 FINDINGS: LUNGS: Significant improvement in left-sided infiltrate. Minimal infiltrate at the right lung base. PLEURA: No pneumothorax or pleural fluid seen. CARDIOVASCULAR: No aortic atherosclerotic calcification present. Mild cardiomegaly. Patient is rotated to the left OSSEOUS STRUCTURES: No significant abnormalities. VISUALIZED UPPER ABDOMEN: Normal. OTHER FINDINGS: None. IMPRESSION: No active disease.
--- NOTE | 2018-05-03 19:23 | CON ---
DATE: 05/03/2018 REASON FOR CONSULTATION: Elevated BNP level. BRIEF CLINICAL HISTORY: This is a 72-year-old male with recurrent urinary tract infection, multiple decubitus ulcers, CVA, sacral decubitus, lower extremity contracture, history of head and neck cancer requiring surgery in the past, swallowing difficulty, history of feeding tube in place, right hemiparesis, history of gastrostomy tube, history of cirrhosis of liver, history of sick sinus syndrome, status post pacemaker, history of seizure disorder, who was initially brought with altered mental status and possible treatment for the pneumonia on date 04/15/2018. History of atrial fibrillation on Eliquis. Now, the patient is in the floor 561, bed 2. Cardiology consult was called because of elevated BNP. The patient denies any chest pain, denies any shortness of breath. Denies any palpitation. PAST HISTORY: Significant for atrial fibrillation, sick sinus syndrome, pacemaker, on Eliquis for atrial fibrillation. History of hypertension, history of CVA, left-sided weakness, throat cancer, history of head and neck cancer, history of surgery, recent history of PEG placement, history of left inguinal hernia, recurrent UTI, liver cirrhosis, depression. History of tachycardia-bradycardia syndrome status post pacemaker. Difficulty swallowing. PAST SURGICAL HISTORY: Significant for status post permanent pacemaker on 08/01/2017, history of head and neck cancer, throat surgery, head and neck surgery, and history of PEG placement. Head and neck cancer status post radical resection of the neck, status post PEG placement, 07/2017. SOCIAL HISTORY: Nonsmoker. Denies any history of alcohol abuse. Recently in the past, the patient was a smoker. PREVIOUS CARDIAC WORKUP: As follows: The patient's echo 08/01/2017, severely impaired systolic dysfunction, ejection fraction 25%, mild mitral regurgitation, mild tricuspid regurgitation, moderate pulmonary hypertension. History of pacemaker, , [employer], tachycardia-bradycardia syndrome. Last echo showed decreased LV function, ejection fraction around 25%. CURRENT MEDICATIONS: The patient at home was taking Keppra, Cardizem, Eliquis 5 mg, Lasix, metoprolol, polyethylene glycol, silver sulfadiazine. REVIEW OF SYSTEMS: As per HPI. ALLERGIES: NO KNOWN DRUG ALLERGY. PHYSICAL EXAMINATION: GENERAL: Height of the patient 5 feet 10 inches, weight of the patient 121 pounds, body mass index 18 kg/m2. VITAL SIGNS: Temperature afebrile, heart rate 123, blood pressure 101/86. HEENT: PERRLA. Extraocular muscles intact. NECK: Supple. No carotid bruit. No thyromegaly. CHEST: Clear to auscultation. HEART: S1, S2 regular. ABDOMEN: Soft. EXTREMITIES: Clubbing and cyanosis negative. LABORATORY DATA: Blood workup as follows: WBC 18.6, hemoglobin 9.8, hematocrit 38.7, platelet count 421,000. Chemistry shows sodium 141, potassium 4.3, chloride 110, carbon dioxide 29, anion gap of 7, BUN 45, creatinine 0.7, BNP 6680. Total protein 4.5 and albumin 2.4 as on 04/21/2018. IMPRESSION: Severe protein-calorie malnutrition, which was not present on admission. Last albumin reported as 2.4 on 04/21/2018, while the patient was on admission, normal albumin. So, severe protein-calorie malnutrition, which was not present on admission. Atrial fibrillation with rapid ventricular rate, anemia, history of head and neck cancer, history of sick sinus syndrome, tachycardia-bradycardia syndrome, history of chronic atrial fibrillation on Eliquis, history of pacemaker, history of cerebrovascular accident with spastic paralysis, multiple bedsores and decubitus ulcers, elevated BNP, severely decreased left ventricular function, ejection fraction 25%, mitral regurgitation, tricuspid regurgitation. RECOMMENDATION: We will discontinue; the patient is currently on 100 mg of IV Lopressor twice a day. We will cut down because of the low blood pressure. I will start low-dose verapamil, start digoxin as well as low dose of beta yessenia. Continue gentle diuretics, increase nutritional support, and we will give three doses of IV albumin to increase plasma on a cardiac patient. We will give some Lasix. We will follow with you. Continue Eliquis for atrial fibrillation and the patient does not need DVT prophylaxis because the patient is on Eliquis. Thank you Dr. Fernandez for providing us the opportunity in taking care of the patient, Geo Kaylin. Fatoumata Huynh MD [facility] # [id number]
--- NOTE | 2018-05-03 22:47 | PN ---
DATE: 05/03/2018 SUBJECTIVE: The patient is in bed, in no acute distress. PHYSICAL EXAMINATION: VITAL SIGNS: Temperature of 100.3, blood pressure is 115/40, respiratory rate of 20, and heart rate of 120. HEENT: Unremarkable. NECK: Supple. LUNGS: Have decreased breath sounds. HEART: Normal S1 and S2. ABDOMEN: Soft. LABORATORY EXAMINATION: Reveals white count of 18,700 and hemoglobin of 9. BUN is 45 and creatinine 0.7. Procalcitonin is 2. Urinalysis is noted. Urine culture is Pseudomonas. Review of orders reveals the on vancomycin and meropenem. ASSESSMENT AND PLAN: This is a 72-year-old male with systemic inflammatory response syndrome. Consider sepsis due to healthcare-associated pneumonia and urinary tract infection with Pseudomonas and multiple sacral ulcers which grew Pseudomonas, currently on vancomycin and meropenem. Overall prognosis is quite poor. Today is day #5 and we treat up to 7 days. Efra Craig MD
--- NOTE | 2018-05-04 02:17 | PN ---
DATE: 05/03/2018 SUBJECTIVE: The patient is a 72-year-old male. The patient was seen and examined at the bedside on 05/03/2018. The patient is looking comfortable. No change in the status. . No shortness of breath. No hematuria. No hematochezia. No headache or dizziness. PHYSICAL EXAMINATION: VITAL SIGNS: Temperature 98.6, blood pressure 110/55, pulse 115, and respiratory rate 20. HEENT: Head is normocephalic and atraumatic. Extraocular muscles are intact. Conjunctivae clear. Nose patent. Mucous membranes moist. NECK: Supple. No carotid bruit, JVD, or thyromegaly. CHEST: Bilaterally symmetrical. HEART: S1, S2 positive. LUNGS: Clear. ABDOMEN: Soft. Bowel sounds present. No organomegaly. EXTREMITIES: Multiple wound sites with dressing in place. NEUROLOGIC: The patient is awake and alert. He is not able to follow simple commands. LABORATORY DATA: Sodium 141, potassium 4.3, BUN 45, creatinine 0.7, and calcium 8.9. ASSESSMENT AND PLAN: Mr. Geo Penaloza is a 72-year-old male with multiple medical problems, has health care-associated pneumonia, status post urinary tract infection, multiple decubitus ulcers in the lower extremities and sacral area, history of head and neck cancer requiring surgery in the past, stroke with hemiparesis, feeding difficulty requiring a gastrotomy tube, recent urinary tract infection, history of cirrhotic liver and electrolyte imbalance, renal insufficiency, diabetes mellitus, pulmonary hypertension, need repositioning, seen by Dr. Carson. We will continue Tylenol, Mucomyst, Eliquis, and Pulmicort. Continue Lasix, Ativan, and Xopenex. Repeat laboratories. Infectious Disease is on the case. Antibiotics. . Mariana Fernandez MD
[2018-05-04] MEDS: Meropenem IV 1 gm in NS 1 GM/50 ML BAG IVPB SCH ×3 (05:32→21:17)
[2018-05-04 07:27] LABS: BASO # 0.02 K/mm3 (0.0-2.0); BASO % 0.1 % (0.0-3.0); EOS # 0.1 (0.0-0.7); EOS % 0.4 % (1.5-5.0); GRAN # 13.88 (1.4-6.5); GRAN % 87.7 % (50.0-68.0); HEMOGLOBIN 9.3 g/dL (14.0-18.0); LYMPH % 6.2 % (22.0-35.0); MEAN CELL VOLUME 81.3 fl (80.0-105.0); MEAN CORPUSCULAR HEMOGLOBIN 24.5 pg (25.0-35.0); MEAN CORPUSCULAR HGB CONC 30.2 g/dl (31.0-37.0); MONO # 0.9 (0.1-0.6); MONO % 5.6 % (1.0-6.0); RBC 3.79 10^6/uL (3.5-6.1); RED CELL DISTRIBUTION WIDTH 18.2 % (11.5-14.5); WHITE BLOOD COUNT 15.8 10^3/uL (4.5-11.0)
[2018-05-04 07:44] LABS: ALB/GLOB RATIO 0.7 (1.1-1.8); ALBUMIN 2.8 g/dL (3.0-4.8); ALT/SGPT 63 U/L (7-56); AST/SGOT 91 U/L (17-59); BLOOD UREA NITROGEN 62 mg/dL (7-21); CALCIUM 9.2 mg/dL (8.4-10.5); GFR NON-AFRICAN AMERICAN > 60; HDL CHOLESTEROL 23 mg/dL (29-60)
[2018-05-04] MEDS: Ipratropium 0.02% Inhal Soln (0.5 mg/2.5 ml) UD IH SCH ×3 (07:44→19:29)
[2018-05-04] MEDS: Acetylcysteine 20% Inhal Soln (4ml) IH SCH ×3 (07:44→19:29)
[2018-05-04] MEDS: Budesonide 0.5 mg/2 ml Inhal Susp UD IH SCH ×4 (07:45→23:14)
[2018-05-04 07:47] LABS: LDL CHOLESTEROL 31 mg/dL (0-129)
--- NOTE | 2018-05-04 08:06 | CP.PCM.PN ---
Subjective - Date & Time of Evaluation Date of Evaluation: 05/04/18 Time of Evaluation: 06:55 - Subjective Subjective: Awake, no distress Reason for consultation and follow up:Cardiac evaluation of elevated BNP, history of PPM, atrial fibrillation on Eliquis Seen and examined by me and Dr. Huynh Objective - Vital Signs/Intake and Output Vital Signs (last 24 hours): Temp Pulse Resp BP Pulse Ox 99.7 F H 126 H 18 126/73 94 L 05/03/18 22:40 05/03/18 22:40 05/03/18 22:40 05/03/18 22:40 05/03/18 22:40 Intake and Output: 05/04/18 05/04/18 06:59 18:59 Intake Total 0 Output Total 2300 Balance -2300 - Medications Medications: Current Medications Acetaminophen (Tylenol 650mg/20.3ml Solution Ud) 650 mg PO Q6H PRN PRN Reason: Pain, Mild (1-3) Acetaminophen (Tylenol 650mg/20.3ml Solution Ud) 650 mg PO Q6H PRN PRN Reason: fever Last Admin: 05/01/18 04:39 Dose: 650 mg Acetylcysteine (Acetylcysteine 20%) 4 ml IH Q8H [facility] Last Admin: 05/04/18 07:44 Dose: 4 ml Apixaban (Eliquis) 5 mg PEG BID [facility]; Protocol Last Admin: 05/03/18 18:39 Dose: 5 mg Budesonide (Pulmicort Respules) 0.5 mg IH Q8 [facility] Last Admin: 05/04/18 07:45 Dose: 0.5 mg Digoxin (Lanoxin) 0.25 mg PO 1400 [facility]IDE Diltiazem HCl (Cardizem) 30 mg PEG Q6H [facility] Last Admin: 05/03/18 12:07 Dose: 30 mg Famotidine (Pepcid) 40 mg PEG HS [facility] Last Admin: 05/03/18 21:44 Dose: 40 mg Ferrous Gluconate (Fergon) 324 mg PO TID [facility] Last Admin: 05/03/18 18:39 Dose: 324 mg Furosemide (Lasix) 40 mg IVP DAILY [facility] Last Admin: 05/03/18 11:03 Dose: 40 mg Meropenem (Merrem Iv 1 Gm Premix) 1 gm in 50 mls @ 100 mls/hr IVPB Q8 [facility]; Protocol Stop: 05/08/18 15:53 Last Admin: 05/04/18 05:32 Dose: 100 mls/hr Vancomycin HCl (Vancomycin 1gm) 1 gm in 250 mls @ 167 mls/hr IVPB 1000,2200 [facility]; Protocol Stop: 05/08/18 16:01 Last Admin: 05/03/18 22:34 Dose: 167 mls/hr Ipratropium [place] (Atrovent) 0.5 mg IH TIDRESP [facility] Last Admin: 05/04/18 07:44 Dose: 0.5 mg Levalbuterol HCl (Xopenex) 1.25 mg IH [id number] PRN PRN Reason: Shortness of Breath Last Admin: 05/02/18 21:30 Dose: 1.25 mg Levetiracetam (Keppra) 500 mg PEG Q12 [facility] Last Admin: 05/03/18 21:44 Dose: 500 mg Magnesium Oxide (Mag-Ox) 400 mg PEG BID [facility] Last Admin: 05/03/18 18:39 Dose: 400 mg Metoprolol Tartrate (Lopressor) 100 mg PEG BID [facility] Last Admin: 05/03/18 11:08 Dose: 100 mg Mupirocin (Bactroban Ointment) 0 gm NS BID [facility] Stop: 05/07/18 18:01 Last Admin: 05/03/18 18:40 Dose: 1 appl Sodium Hypochlorite (Dakins Solution 0.25%) 0 ml TOP DAILY [facility] Last Admin: 05/03/18 11:06 Dose: 1 appl Verapamil HCl (Calan Tab) 40 mg PO TID [facility] Last Admin: 05/03/18 18:50 Dose: 40 mg - Labs Labs: 05/04/18 06:45 05/04/18 06:45 PT 16.5 SECONDS (9.4-12.5) H 04/13/18 10:50 INR 1.42 04/13/18 10:50 APTT 28.7 Seconds (25.1-36.5) 04/13/18 10:50 - Constitutional Appears: Non-toxic, No Acute Distress - ENT Exam ENT Exam: Mucous Membranes Dry - Respiratory Exam Respiratory Exam: Decreased Breath Sounds, Rhonchi, NORMAL BREATHING PATTERN - Cardiovascular Exam Cardiovascular Exam: +S1, +S2 Additional comments: PPM - GI/Abdominal Exam GI & Abdominal Exam: Soft, Normal Bowel Sounds Additional comments: PEG intact - Exam Additional comments: patton catheter - Extremities Exam Additional comments: contracted upper and lower extremities - Neurological Exam Neurological Exam: Alert, Awake - Psychiatric Exam Psychiatric exam: Normal Affect, Normal Mood - Skin Skin Exam: Dry, Normal Color, Warm Additional comments: multiple skin breakdown Assessment and Plan - Assessment and Plan (Free Text) Assessment: A 72 year old male who was transferred from correction due to altered mental status. He is known to service for multiple admissions to [facility] [place]. History of recurrent urinary tract ifection, multiple decubitus ulcers, CVA,right sided hemiparesis, lower and upper extremities contracture, sacral decubitus,throat cancer,swallowing difficulty failed swallowing evalution requiring PEG insertion, sick sinus syndrome requiring PPM, seizure disorder,liver cirrhosis, depression,atrial fibrillation on Eliquis, hypertension. Consult was called to evaluate elevated BNP. Severe malnutrition.Chest Xray-left sided infiltrate. Plan: Denies shortness of breath Held Lopressor due to hypotension Rapid heart rate Atrial fibrillation 120's Started on Verapamil and Digoxin Blood pressure stable On Eliquis 5 mg BID, Digoxin 0.25 mg daily, Cardizem 30 mg every 6 hours Lasix 40 mg daily,Keppra 500 mg every 12 hours,Lopressor 100 mg BID Calan 40 mg TID Continue IV antibiotics as ordered Continue current treatment Continue current medications Will follow up Plan and treatment discussed with Dr. Huynh
[2018-05-04] MEDS: levETIRAcetam 500 mg/5ml UD cups PEG SCH ×2 (10:43→21:18)
[2018-05-04] MEDS: Magnesium Oxide 400 mg Tab UD PEG SCH ×2 (10:44→18:25)
[2018-05-04] MEDS: Dakin's Topical 0.25%-Half Strength (480 ml) TOP SCH (10:44)
[2018-05-04] MEDS: Mupirocin 2% Ointment 15 GM TUBE NS SCH (10:44)
[2018-05-04] MEDS: Vancomycin 1gm in NS 250ml 1 GM/250 ML BAG IVPB SCH ×2 (10:45→22:37)
[2018-05-04] MEDS: Levalbuterol 1.25 MG/3 ML Inhal Soln UD IH PRN ×2 (11:31→19:29)
--- NOTE | 2018-05-04 12:57 | PN ---
PULMONARY PROGRESS NOTE DATE: 05/04/2018 REFERRING PHYSICIAN: Mariana Fernandez MD SUBJECTIVE: The patient lying in bed, awake, alert and verbally responsive. No overnight events reported. No headache, rhinitis, shortness of breath, chest pain, abdominal pain, nausea, vomiting, diarrhea, leg pain or leg swelling reported. Staff does report occasional cough. OBJECTIVE: VITAL SIGNS: Blood pressure 127/70, pulse 125, oxygen saturation 95% on room air and temperature 98.3. GENERAL: No acute distress. HEENT: Moist mucous membrane. NECK: Supple. No JVD. CARDIOVASCULAR: Tachycardic. LUNGS: Rhonchi bilaterally, no audible wheeze. ABDOMEN: Soft and nontender. Gastrostomy tube in place. No organomegaly. EXTREMITIES: No bilateral edema, multiple wound sites with dressing in place. NEUROLOGIC: Awake, alert, verbal and aphasic. LABORATORY DATA: Reviewed. WBC 15.8, RBC 3.79, hemoglobin 9.3, hematocrit 30.8 and platelets 416. Sodium 146, potassium 3.7, chloride 112, carbon dioxide 32, anion gap 6, BUN 62, creatinine 0.7, GFR is greater than 60, random glucose 110, calcium 9.2, phosphorous 2.3, magnesium 2.2, total bilirubin 0.7, AST 91, ALT 63, alkaline phosphatase 128, proBNP 6680, total protein 6.8, albumin 2.8, globulin 3.9 and albumin-globulin ratio 0.7. Triglycerides 72, cholesterol less than 50, LDL 31 and HDL 23. TSH 4.05. Electrocardiogram report pending. Chest x-ray shows significant improvement in left-sided infiltrate, minimal infiltrate at the right lung base. No active disease. MEDICATIONS: Reviewed. Tylenol 650 mg every 6 hours p.r.n. for mild pain, Tylenol 650 mg every 6 hours p.r.n. for fever, Mucomyst 4 mL inhalation every 8 hours, Eliquis 5 mg twice a day, Pulmicort 0.5 mg inhalation every 8 hours, digoxin 0.25 mg p.o. daily, Cardizem 30 mg every 6 hours on hold, Pepcid 40 mg at bedtime, ferrous gluconate 324 mg p.o. three times a day, Lasix 40 mg IV push daily, Ativan 0.5 mg inhalation three times a day, Xopenex 1.25 mg inhalation every 6 hours p.r.n., Keppra 500 mg every 12 hours, magnesium oxide 400 mg twice a day, meropenem 1 g IV every 8 hours, metoprolol tartrate 100 mg twice a day, Bactroban topically twice a day for affected area, Dakin's solution topically daily affected area, vancomycin 1 g twice a day and verapamil 40 mg three times a day. IMPRESSION AND PLAN: Healthcare associated pneumonia, status post urinary tract infection. The patient had multiple decubitus ulcers to lower extremity with lower extremity contractures. The patient had a neck cancer requiring surgery in the past, stroke with hemiparesis, feeding difficulty requiring gastrostomy tube, recurrent urinary tract infection, history of cirrhotic liver, electrolyte imbalance, renal insufficiency and diabetes mellitus. Pulmonary point of view, continue pulmonary toileting. The patient needs frequent repositioning while in bed. Wound care followup. Continue antibiotic therapy, pressure ulcer precaution, gastric prophylaxis, deep venous thrombosis prophylaxis, head of bed elevated at 45 degrees and continue to monitor BUN and creatinine. This patient was seen and examined with Dr. Cruz. Discussed assessment and plan as described above. Thank you for this consult. We will follow with you. Bryn Rosa APN Fatoumata Cruz MD JAMES
--- NOTE | 2018-05-04 13:59 | CP.PCM.PN ---
Subjective - Date & Time of Evaluation Date of Evaluation: 05/04/18 Time of Evaluation: 09:15 - Subjective Subjective: Still having low grade fevers but not in distress. Objective - Vital Signs/Intake and Output Vital Signs (last 24 hours): Temp Pulse Resp BP Pulse Ox 98.3 F 125 H 18 127/70 95 05/04/18 06:00 05/04/18 06:00 05/04/18 06:00 05/04/18 10:44 05/04/18 06:00 Intake and Output: 05/04/18 05/04/18 06:59 18:59 Intake Total 0 Output Total 2300 Balance -2300 - Medications Medications: Current Medications Acetaminophen (Tylenol 650mg/20.3ml Solution Ud) 650 mg PO Q6H PRN PRN Reason: Pain, Mild (1-3) Acetaminophen (Tylenol 650mg/20.3ml Solution Ud) 650 mg PO Q6H PRN PRN Reason: fever Last Admin: 05/01/18 04:39 Dose: 650 mg Acetylcysteine (Acetylcysteine 20%) 4 ml IH Q8H [facility] Last Admin: 05/04/18 07:44 Dose: 4 ml Apixaban (Eliquis) 5 mg PEG BID [facility]; Protocol Last Admin: 05/04/18 10:43 Dose: 5 mg Budesonide (Pulmicort Respules) 0.5 mg IH Q8 [facility] Last Admin: 05/04/18 07:45 Dose: 0.5 mg Digoxin (Lanoxin) 0.25 mg PO 1400 HEIDE Diltiazem HCl (Cardizem) 30 mg PEG Q6H [facility] Last Admin: 05/03/18 12:07 Dose: 30 mg Famotidine (Pepcid) 40 mg PEG HS [facility] Last Admin: 05/03/18 21:44 Dose: 40 mg Ferrous Gluconate (Fergon) 324 mg PO TID [facility] Last Admin: 05/04/18 10:43 Dose: 324 mg Furosemide (Lasix) 40 mg IVP DAILY [facility] Last Admin: 05/04/18 10:44 Dose: 40 mg Meropenem (Merrem Iv 1 Gm Premix) 1 gm in 50 mls @ 100 mls/hr IVPB Q8 [facility]; Protocol Stop: 05/08/18 15:53 Last Admin: 05/04/18 05:32 Dose: 100 mls/hr Vancomycin HCl (Vancomycin 1gm) 1 gm in 250 mls @ 167 mls/hr IVPB 1000,2200 [facility]; Protocol Stop: 05/08/18 16:01 Last Admin: 05/04/18 10:45 Dose: 167 mls/hr Ipratropium [place] (Atrovent) 0.5 mg IH TIDRESP [facility] Last Admin: 05/04/18 07:44 Dose: 0.5 mg Levalbuterol HCl (Xopenex) 1.25 mg IH [id number] PRN PRN Reason: Shortness of Breath Last Admin: 05/04/18 11:31 Dose: 1.25 mg Levetiracetam (Keppra) 500 mg PEG Q12 [facility] Last Admin: 05/04/18 10:43 Dose: 500 mg Magnesium Oxide (Mag-Ox) 400 mg PEG BID [facility] Last Admin: 05/04/18 10:44 Dose: 400 mg Metoprolol Tartrate (Lopressor) 100 mg PEG BID [facility] Last Admin: 05/03/18 11:08 Dose: 100 mg Mupirocin (Bactroban Ointment) 0 gm NS BID [facility] Stop: 05/07/18 18:01 Last Admin: 05/04/18 10:44 Dose: 1 appl Sodium Hypochlorite (Dakins Solution 0.25%) 0 ml TOP DAILY [facility] Last Admin: 05/04/18 10:44 Dose: 1 appl Verapamil HCl (Calan Tab) 40 mg PO TID [facility] Last Admin: 05/04/18 10:47 Dose: 40 mg - Labs Labs: 05/04/18 06:45 05/04/18 06:45 PT 16.5 SECONDS (9.4-12.5) H 04/13/18 10:50 INR 1.42 04/13/18 10:50 APTT 28.7 Seconds (25.1-36.5) 04/13/18 10:50 - Constitutional Appears: Cachectic, Chronically Ill - Head Exam Head Exam: NORMAL INSPECTION - Respiratory Exam Respiratory Exam: Decreased Breath Sounds - Cardiovascular Exam Cardiovascular Exam: +S1, +S2 - GI/Abdominal Exam GI & Abdominal Exam: Soft. absent: Tenderness Assessment and Plan - Assessment and Plan (Free Text) Plan: Assessment systemic inflammatory response syndrome consider sepsis due to HCAP and UTI with Pseudomonas due to multiple sacral ulcers, grew Pseudomonas history of sepsis due to right lower lobe HCAP with ESBL E. coli left hip wound infection HTN COPD atrial fibrillation throat cancer dementia history of CVA of left frontal lobe liver cirrhosis Plan continue Vancomycin and Merrem day 6 up to 7 days of therapy - continue to trend fever curve overall prognosis is poor
[2018-05-04] MEDS: Digoxin 250 mcg (0.25 mg) Tab PO SCH (14:00)
--- NOTE | 2018-05-04 15:24 | CP.PCM.PN ---
<Jorden Rome - Last Filed: 05/04/18 15:22> Subjective - Date & Time of Evaluation Date of Evaluation: 05/04/18 Time of Evaluation: 15:22 - Subjective Subjective: Podiatry progress note for attending Dr. Montero; 72 y/o M patient seen and evaluated at the bedside for bilateral lower extremity wounds. Patient was awake during evaluation. As per his chart has fever overnight and today. Patient is a poor historian. Patient shows some pain during dressing change. Patient in a contracted position. Patient was not wearing his m ultipodus boot during exam time. Objective - Vital Signs/Intake and Output Vital Signs (last 24 hours): Temp Pulse Resp BP Pulse Ox 101.1 F H 129 H 18 101/53 L 92 L 05/04/18 14:00 05/04/18 14:00 05/04/18 14:00 05/04/18 14:00 05/04/18 14:00 Intake and Output: 05/04/18 05/04/18 06:59 18:59 Intake Total 0 Output Total 2300 Balance -2300 - Medications Medications: Current Medications Acetaminophen (Tylenol 650mg/20.3ml Solution Ud) 650 mg PO Q6H PRN PRN Reason: Pain, Mild (1-3) Acetaminophen (Tylenol 650mg/20.3ml Solution Ud) 650 mg PO Q6H PRN PRN Reason: fever Last Admin: 05/01/18 04:39 Dose: 650 mg Acetylcysteine (Acetylcysteine 20%) 4 ml IH Q8H [facility] Last Admin: 05/04/18 14:27 Dose: 4 ml Apixaban (Eliquis) 5 mg PEG BID [facility]; Protocol Last Admin: 05/04/18 10:43 Dose: 5 mg Budesonide (Pulmicort Respules) 0.5 mg IH Q8 [facility] Last Admin: 05/04/18 14:28 Dose: 0.5 mg Digoxin (Lanoxin) 0.25 mg PO 1400 [facility] Diltiazem HCl (Cardizem) 30 mg PEG Q6H [facility] Last Admin: 05/03/18 12:07 Dose: 30 mg Famotidine (Pepcid) 40 mg PEG HS [facility] Last Admin: 05/03/18 21:44 Dose: 40 mg Ferrous Gluconate (Fergon) 324 mg PO TID [facility] Last Admin: 12/07/18 10:43 Dose: 324 mg Furosemide (Lasix) 40 mg IVP DAILY [facility] Last Admin: 05/04/18 10:44 Dose: 40 mg Meropenem (Merrem Iv 1 Gm Premix) 1 gm in 50 mls @ 100 mls/hr IVPB Q8 [facility]; Protocol Stop: 05/08/18 15:53 Last Admin: 05/04/18 05:32 Dose: 100 mls/hr Vancomycin HCl (Vancomycin 1gm) 1 gm in 250 mls @ 167 mls/hr IVPB 1000,2200 [facility]; Protocol Stop: 05/08/18 16:01 Last Admin: 05/04/18 10:45 Dose: 167 mls/hr Ipratropium [place] (Atrovent) 0.5 mg IH TIDRESP [facility] Last Admin: 05/04/18 14:28 Dose: 0.5 mg Levalbuterol HCl (Xopenex) 1.25 mg IH [id number] PRN PRN Reason: Shortness of Breath Last Admin: 05/04/18 11:31 Dose: 1.25 mg Levetiracetam (Keppra) 500 mg PEG Q12 [facility] Last Admin: 05/04/18 10:43 Dose: 500 mg Magnesium Oxide (Mag-Ox) 400 mg PEG BID [facility] Last Admin: 05/04/18 10:44 Dose: 400 mg Metoprolol Tartrate (Lopressor) 100 mg PEG BID [facility] Last Admin: 05/03/18 11:08 Dose: 100 mg Mupirocin (Bactroban Ointment) 0 gm NS BID [facility] Stop: 05/07/18 18:01 Last Admin: 05/04/18 10:44 Dose: 1 appl Sodium Hypochlorite (Dakins Solution 0.25%) 0 ml TOP DAILY [facility] Last Admin: 05/04/18 10:44 Dose: 1 appl Verapamil HCl (Calan Tab) 40 mg PO TID [facility] Last Admin: 05/04/18 10:47 Dose: 40 mg - Labs Labs: 05/04/18 06:45 05/04/18 06:45 PT 16.5 SECONDS (9.4-12.5) H 04/13/18 10:50 INR 1.42 04/13/18 10:50 APTT 28.7 Seconds (25.1-36.5) 04/13/18 10:50 - Constitutional Appears: Well - Head Exam Head Exam: ATRAUMATIC - Extremities Exam Additional comments: B/L LE focused exam: Vasc: DP/PT pulses faintly palpable 1/4 b/l. Skin temperature warm to warm from proximal to distal. Cap refill < 3 seconds to all digits b/l. No edema noted b/l Neuro: unable to assess. Patient is not cooperative Derm: R- multiple areas of superficial skin wounds noted thigh and the foot, no malodor, no drainage, no clinical signs of infection L- multiple areas of pressure blisters noted to the lateral aspect of the 5th digit and dorso-lateral aspect of the foot along with a heel ulceration, No erythema, malodor, drainage, tracking, tunneling, undermining, probe to bone, or other clinical signs of infection noted MSK: Minimal tenderness on palpation to left heel. Rigid contracture of all digits 1-5 b/l. Otherwise, no gross deformities noted. Unable to assess muscle strength secondary to patient mental status. Pain with attempt to change the patient position to change the dressing - Neurological Exam Neurological Exam: Awake Assessment and Plan - Assessment and Plan (Free Text) Assessment: 72 y/o M patient seen and evaluated at the bedside for bilateral lower extremity wounds Plan: Patient seen and evaluated at the bedside Plans discussed with Dr. Montero Charts, labs and vitals reviewed; Patient is febrile 101.1, WBCs 15.8 Right Lower Extremity Wounds- optiofoam applied to all wounds Left Lower Extremity Wounds- optifoam applied to all wounds Multipodus boots recommended for patient at all times Podiatry will change dressings every MWF and will continue to follow up the patient while in house <Samuel Montero - Last Filed: 05/05/18 08:23> Objective - Vital Signs/Intake and Output Vital Signs (last 24 hours): Temp Pulse Resp BP Pulse Ox 98.6 F 126 H 20 111/74 98 05/05/18 06:00 05/05/18 06:00 05/05/18 06:00 05/05/18 06:00 05/05/18 06:00 Intake and Output: 05/05/18 05/05/18 06:59 18:59 Intake Total 0 Output Total 1400 Balance -1400 - Medications Medications: Current Medications Acetaminophen (Tylenol 650mg/20.3ml Solution Ud) 650 mg PO Q6H PRN PRN Reason: Pain, Mild (1-3) Acetaminophen (Tylenol 650mg/20.3ml Solution Ud) 650 mg PO Q6H PRN PRN Reason: fever Last Admin: 05/01/18 04:39 Dose: 650 mg Acetylcysteine (Acetylcysteine 20%) 4 ml IH Q8H [facility] Last Admin: 05/04/18 19:29 Dose: 4 ml Apixaban (Eliquis) 5 mg PEG BID [facility]; Protocol Last Admin: 05/04/18 18:25 Dose: 5 mg Budesonide (Pulmicort Respules) 0.5 mg IH Q8 [facility] Last Admin: 05/04/18 23:14 Dose: Not Given Digoxin (Lanoxin) 0.25 mg PO 1400 [facility] Last Admin: 05/04/18 14:00 Dose: 0.25 mg Diltiazem HCl (Cardizem) 30 mg PEG Q6H [facility] Last Admin: 05/03/18 12:07 Dose: 30 mg Famotidine (Pepcid) 40 mg PEG HS [facility] Last Admin: 05/04/18 21:18 Dose: 40 mg Ferrous Gluconate (Fergon) 324 mg PO TID [facility] Last Admin: 05/04/18 18:25 Dose: 324 mg Furosemide (Lasix) 40 mg IVP DAILY [facility] Last Admin: 05/04/18 10:44 Dose: 40 mg Meropenem (Merrem Iv 1 Gm Premix) 1 gm in 50 mls @ 100 mls/hr IVPB Q8 [facility]; Protocol Stop: 05/08/18 15:53 Last Admin: 05/05/18 05:18 Dose: 100 mls/hr Vancomycin HCl (Vancomycin 1gm) 1 gm in 250 mls @ 167 mls/hr IVPB 1000,2200 [facility]; Protocol Stop: 05/08/18 16:01 Last Admin: 05/04/18 22:37 Dose: 167 mls/hr Ipratropium [place] (Atrovent) 0.5 mg IH TIDRESP [facility] Last Admin: 05/04/18 19:29 Dose: 0.5 mg Levalbuterol HCl (Xopenex) 1.25 mg IH [id number] PRN PRN Reason: Shortness of Breath Last Admin: 05/04/18 19:29 Dose: 1.25 mg Levetiracetam (Keppra) 500 mg PEG Q12 [facility] Last Admin: 05/04/18 21:18 Dose: 500 mg Magnesium Oxide (Mag-Ox) 400 mg PEG BID [facility] Last Admin: 05/04/18 18:25 Dose: 400 mg Metoprolol Tartrate (Lopressor) 100 mg PEG BID [facility] Last Admin: 05/03/18 11:08 Dose: 100 mg Mupirocin (Bactroban Ointment) 0 gm NS BID [facility] Stop: 05/07/18 18:01 Last Admin: 05/04/18 10:44 Dose: 1 appl Sodium Hypochlorite (Dakins Solution 0.25%) 0 ml TOP DAILY [facility] Last Admin: 05/04/18 10:44 Dose: 1 appl Verapamil HCl (Calan Tab) 40 mg PO TID [facility] Last Admin: 05/04/18 21:17 Dose: 40 mg - Labs Labs: 05/04/18 06:45 05/04/18 06:45 PT 16.5 SECONDS (9.4-12.5) H 04/13/18 10:50 INR 1.42 04/13/18 10:50 APTT 28.7 Seconds (25.1-36.5) 04/13/18 10:50 Attending/Attestation - Attestation I have personally seen and examined this patient.: Yes I have fully participated in the care of the patient.: Yes I have reviewed all pertinent clinical information, including history, physical exam and plan: Yes
--- NOTE | 2018-05-04 16:20 | CARD ---
APPROVED REPORT Date of service: 05/04/2018 EKG Measurement Heart [id number] <Conclusion> Atrial flutter with 2:1 AV conduction Anterolateral infarct, age undetermined Abnormal ECG
[2018-05-04] MEDS ORDERED: Potassium Chloride 40 mEq/30 ml LIQ UD PO STA (17:00)
[2018-05-04] MEDS ORDERED: Digoxin 500 mcg/2ml (0.5 mg/2ml) Inj IVP ONE (23:43)
--- NOTE | 2018-05-05 02:46 | PN ---
DATE: 05/04/2018 SUBJECTIVE: The patient is a 72-year-old male. Looking comfortable. Having low-grade fever. Does not look like in distress. No nausea, vomiting or diarrhea. No hematuria or hematochezia. No headache or dizziness. PHYSICAL EXAMINATION: VITAL SIGNS: Temperature 98.3, pulse 125, respiratory rate 18, blood pressure 127/70, pulse oximetry 95. HEENT: Head is normocephalic and atraumatic. Eyes, PERRLA. Extraocular muscles intact. Conjunctivae clear. Nose patent. Mucous membranes moist. NECK: Supple. No carotid bruit, JVD, or thyromegaly. CHEST: Bilaterally symmetrical. HEART: S1 and S2 positive. LUNGS: Clear to auscultation. ABDOMEN: Soft. Bowel sounds present. No organomegaly. EXTREMITIES: Having dressing and multiple decubitus ulcers. NEUROLOGIC: The patient is awake and alert, but is not obeying order. MEDICATIONS: Tylenol, Eliquis, Pulmicort, Cardizem, Pepcid, Lasix, Merrem, vancomycin, and Lopressor. LABORATORY DATA: White blood cells 15.8, hemoglobin 9.3, hematocrit 30.8, and platelet 116. Sodium 146, potassium 3.7, BUN 62, creatinine 0.7, and glucose 110. ASSESSMENT AND PLAN: Mr. Geo Ewing is a 72-year-old male with leukocytosis, anemia, hyperchloremia, and renal insufficiency. Has systemic inflammatory response syndrome, sepsis due to health care-associated pneumonia and urinary tract infection with Pseudomonas due to multiple sacral ulcers, grew Pseudomonas. History of sepsis due to right lower lobe health care-associated pneumonia with extended-spectrum beta-lactamase and Escherichia coli, left hip wound infection, hypertension, chronic obstructive pulmonary disease, atrial fibrillation, since throat cancer having gastrotomy tube, dementia, history of severe left frontal lobe liver cirrhosis. Continue vancomycin and Merrem, day 6 out of 7 days of therapy. Continue . Overall prognosis is poor. Discussion done with nursing staff. Family persistently does not want the patient to be Do Not Resuscitate or Do Not Intubate. They want full code. We will follow up. Mariana Fernandez MD
[2018-05-05] MEDS: Meropenem IV 1 gm in NS 1 GM/50 ML BAG IVPB SCH ×3 (05:18→22:55)
--- NOTE | 2018-05-05 08:41 | CP.PCM.PN ---
Subjective - Date & Time of Evaluation Date of Evaluation: 05/05/18 Time of Evaluation: 07:35 - Subjective Subjective: Awake, no distress, denies chest pain or shortness of breath Reason for consultation and follow up:Cardiac evaluation of elevated BNP, history of PPM, atrial fibrillation on Eliquis Seen and examined by me and Objective - Vital Signs/Intake and Output Vital Signs (last 24 hours): Temp Pulse Resp BP Pulse Ox 98.6 F 126 H 20 111/74 98 05/05/18 06:00 05/05/18 06:00 05/05/18 06:00 05/05/18 06:00 05/05/18 06:00 Intake and Output: 05/05/18 05/05/18 06:59 18:59 Intake Total 0 Output Total 1400 Balance -1400 - Medications Medications: Current Medications Acetaminophen (Tylenol 650mg/20.3ml Solution Ud) 650 mg PO Q6H PRN PRN Reason: Pain, Mild (1-3) Acetaminophen (Tylenol 650mg/20.3ml Solution Ud) 650 mg PO Q6H PRN PRN Reason: fever Last Admin: 05/01/18 04:39 Dose: 650 mg Acetylcysteine (Acetylcysteine 20%) 4 ml IH Q8H [facility] Last Admin: 05/04/18 19:29 Dose: 4 ml Apixaban (Eliquis) 5 mg PEG BID [facility]; Protocol Last Admin: 05/04/18 18:25 Dose: 5 mg Budesonide (Pulmicort Respules) 0.5 mg IH Q8 [facility] Last Admin: 05/04/18 23:14 Dose: Not Given Digoxin (Lanoxin) 0.25 mg PO 1400 [facility] Last Admin: 05/04/18 14:00 Dose: 0.25 mg Diltiazem HCl (Cardizem) 30 mg PEG Q6H [facility] Last Admin: 05/03/18 12:07 Dose: 30 mg Famotidine (Pepcid) 40 mg PEG HS [facility] Last Admin: 05/04/18 21:18 Dose: 40 mg Ferrous Gluconate (Fergon) 324 mg PO TID [facility] Last Admin: 05/04/18 18:25 Dose: 324 mg Furosemide (Lasix) 40 mg IVP DAILY [facility] Last Admin: 05/04/18 10:44 Dose: 40 mg Meropenem (Merrem Iv 1 Gm Premix) 1 gm in 50 mls @ 100 mls/hr IVPB Q8 [facility]; Protocol Stop: 05/08/18 15:53 Last Admin: 05/05/18 05:18 Dose: 100 mls/hr Vancomycin HCl (Vancomycin 1gm) 1 gm in 250 mls @ 167 mls/hr IVPB 1000,2200 [facility]; Protocol Stop: 05/08/18 16:01 Last Admin: 05/04/18 22:37 Dose: 167 mls/hr Ipratropium [place] (Atrovent) 0.5 mg IH TIDRESP [facility] Last Admin: 05/04/18 19:29 Dose: 0.5 mg Levalbuterol HCl (Xopenex) 1.25 mg IH [id number] PRN PRN Reason: Shortness of Breath Last Admin: 05/04/18 19:29 Dose: 1.25 mg Levetiracetam (Keppra) 500 mg PEG Q12 [facility] Last Admin: 05/04/18 21:18 Dose: 500 mg Magnesium Oxide (Mag-Ox) 400 mg PEG BID [facility] Last Admin: 05/04/18 18:25 Dose: 400 mg Metoprolol Tartrate (Lopressor) 100 mg PEG BID [facility] Last Admin: 05/03/18 11:08 Dose: 100 mg Mupirocin (Bactroban Ointment) 0 gm NS BID [facility] Stop: 05/07/18 18:01 Last Admin: 05/04/18 10:44 Dose: 1 appl Sodium Hypochlorite (Dakins Solution 0.25%) 0 ml TOP DAILY [facility] Last Admin: 05/04/18 10:44 Dose: 1 appl Verapamil HCl (Calan Tab) 40 mg PO TID [facility] Last Admin: 05/04/18 21:17 Dose: 40 mg - Labs Labs: 05/04/18 06:45 05/04/18 06:45 PT 16.5 SECONDS (9.4-12.5) H 04/13/18 10:50 INR 1.42 04/13/18 10:50 APTT 28.7 Seconds (25.1-36.5) 04/13/18 10:50 - Constitutional Appears: Non-toxic, No Acute Distress - Head Exam Head Exam: NORMAL INSPECTION, NORMOCEPHALIC - ENT Exam ENT Exam: Mucous Membranes Dry - Respiratory Exam Respiratory Exam: Decreased Breath Sounds, Rhonchi, NORMAL BREATHING PATTERN - Cardiovascular Exam Cardiovascular Exam: +S1, +S2 Additional comments: PPM - GI/Abdominal Exam GI & Abdominal Exam: Soft, Normal Bowel Sounds Additional comments: PEG - Exam Additional comments: patton catheter - Extremities Exam Additional comments: contracted arms and legs - Neurological Exam Neurological Exam: Alert, Awake - Psychiatric Exam Psychiatric exam: Normal Affect, Normal Mood - Skin Skin Exam: Dry, Normal Color, Warm Additional comments: multiple skin breakdown sacral decubitus Assessment and Plan - Assessment and Plan (Free Text) Assessment: A 72 year old male who was transferred from [facility] due to altered mental status. He is known to service for multiple admissions to [facility]. History of recurrent urinary tract ifection, multiple decubitus ulcers, CVA,right sided hemiparesis, lower and upper extremities contracture, sacral decubitus,throat cancer,swallowing difficulty failed swallowing evalution requiring PEG insertion, sick sinus syndrome requiring PPM, seizure disorder,liver cirrhosis, depression,atrial fibrillation on Eliquis, hypertension. Consult was called to evaluate elevated BNP. Severe malnutrition.Chest Xray-left sided infiltrate. Urine positive for pseudomonas and also left hip decubitus positive for pseudomonas. On IV antibiotics. ID on consult. Plan: Comfortable,Denies shortness of breath Heart rate 120's Will increase Verapamil Blood pressure stable On Eliquis 5 mg BID, Digoxin 0.25 mg daily, Verapamil 40 mg TID, Lasix 40 mg daily,Keppra 500 mg every 12 hours Lopressor held due to episode of hypotension Continue IV antibiotics as ordered Continue current treatment Continue current medications Will follow up Plan and treatment discussed with Dr. Huynh
[2018-05-05] MEDS: Acetylcysteine 20% Inhal Soln (4ml) IH SCH ×2 (09:12→20:15)
[2018-05-05] MEDS: Budesonide 0.5 mg/2 ml Inhal Susp UD IH SCH (09:13)
[2018-05-05] MEDS: Ipratropium 0.02% Inhal Soln (0.5 mg/2.5 ml) UD IH SCH ×2 (09:17→20:15)
[2018-05-05] MEDS: Mupirocin 2% Ointment 15 GM TUBE NS SCH ×2 (11:54→17:30)
[2018-05-05] MEDS: Magnesium Oxide 400 mg Tab UD PEG SCH ×2 (11:58→17:34)
[2018-05-05] MEDS: levETIRAcetam 500 mg/5ml UD cups PEG SCH ×2 (12:00→22:54)
[2018-05-05] MEDS: Dakin's Topical 0.25%-Half Strength (480 ml) TOP SCH (12:01)
[2018-05-05] MEDS: Vancomycin 1gm in NS 250ml 1 GM/250 ML BAG IVPB SCH ×2 (12:02→22:55)
--- NOTE | 2018-05-05 12:35 | PN ---
DATE: 05/05/2018 PULMONARY PROGRESS NOTE REFERRING PHYSICIAN: Mariana Fernandez MD SUBJECTIVE: The patient is lying in bed. No acute distress. No overnight events reported by nursing staff. No hemoptysis, hematemesis, hematuria, or diarrhea reported. PHYSICAL EXAMINATION: GENERAL: No acute distress. VITAL SIGNS: Blood pressure 111/74, pulse 126, temp 98.6, oxygen saturation 98% on room air. HEENT: Dry mucous membranes. NECK: Supple. No JVD. RESPIRATORY: Rhonchi bilaterally, nonlabored breathing. Decreased breath sounds bases. CARDIOVASCULAR: S1 and S2 audible. ABDOMEN: Soft and nontender. Gastrostomy tube in place. No organomegaly. EXTREMITIES: No bilateral edema. Multiple wound sites with dressing in place. NEUROLOGIC: Awake, alert, aphasic. LABORATORY DATA: Reviewed. Digoxin 1.4. MEDICATIONS: Reviewed. Tylenol 650 mg every 6 hours p.r.n. mild pain, Tylenol 650 every 6 hours p.r.n. fever, Mucomyst 4 mL inhalation every 8 hours, Eliquis 5 mg twice a day, Pulmicort 0.5 mg inhalation every 8 hours, digoxin 0.25 mg daily, Cardizem 30 mg every 6 hours, Pepcid 40 mg h.s., ferrous gluconate 324 mg three times a day, Lasix 40 mg IV push daily, Atrovent 0.5 mg inhalation three times a day, Xopenex 1.25 mg inhalation every 6 hours p.r.n., Keppra 500 mg every 12 hours, magnesium oxide 400 mg twice a day, meropenem 1 g every 8 hours, metoprolol tartrate 100 mg twice a day, Bactroban apply topically twice a day, Dakin's solution topically daily to affected area, vancomycin 1 g twice a day, verapamil 80 mg three times a day. IMPRESSION AND PLAN: Healthcare-associated pneumonia, status post urinary tract infection, multiple decubitus ulcers to lower extremity with lower extremity contractures. The patient has a history of neck cancer requiring surgery in the past, stroke with hemiparesis, feeding difficulty requiring gastrostomy tube, recurrent urinary tract infection, history of cirrhotic liver, electrolyte imbalance, renal insufficiency and diabetes mellitus. Pulmonary point of view, need to continue pulmonary toileting, needs frequent repositioning while in bed. Wound care followup. Continue antibiotic therapy, pressure ulcer precaution, gastric prophylaxis, deep venous thrombosis prophylaxis, head of bed elevated at 45 degrees and continue to monitor labs, BUN and creatinine. We will add order to start suctioning every 4 hours nasal and oral deep suctioning. Case discussed with Dr. Fernandez. This patient was seen and examined with Dr. Cruz. Discussed assessment and plan as described above. Thank you for this consult. We will follow. Bryn Rosa APN Fatoumata Cruz MD MTDJaclyn
[2018-05-05] MEDS: Digoxin 250 mcg (0.25 mg) Tab PO SCH (16:29)
[2018-05-05] MEDS: Acetaminophen 650mg/20.3ml solution UD PO PRN (22:54)
--- NOTE | 2018-05-06 00:33 | PN ---
DATE: 05/05/2018 SUBJECTIVE: The patient is in bed, in no acute distress. PHYSICAL EXAMINATION VITAL SIGNS: The patient has a fever with 101.3, blood pressure is 96/50, respiratory rate of 18, and heart rate of 120. HEENT: Unremarkable. NECK: Supple. LUNGS: Have decreased breath sounds. HEART: Normal S1 and S2. ABDOMEN: Soft. LABORATORY DATA: Reveals white count of 15,800 and hemoglobin of 9. Chemistry reveals a BUN of 52 and creatinine of 0.7. Procalcitonin is 2.08. Urinalysis is noted. Serology is noted. Microbiology reveals blood culture are negative and Gram-negative rods in sputum. Urine cultures; Pseudomonas. Review of orders reveals the patient to be on vancomycin and meropenem. ASSESSMENT AND PLAN: This is a 72-year-old male with systemic inflammatory response syndrome, sepsis secondary to healthcare-associated pneumonia, urinary tract infection with Pseudomonas, multiple decubitus ulcers, history of healthcare-associated pneumonia and history of extended-spectrum beta-lactamases, on day #7 of vancomycin and meropenem. The patient with hypertension, chronic obstructive pulmonary disease, atrial fibrillation, dementia and liver cirrhosis. Overall prognosis is quite poor. The patient have intermittent fevers. We will follow with you. Thus far the patient has Gram-negative vic in sputum and an elevated procalcitonin. Chest x-ray from the 6th and bilateral right-sided and left-sided infiltrates. Overall prognosis is poor. Efra Craig MD
--- NOTE | 2018-05-06 06:02 | PN ---
DATE: 05/05/2018 SUBJECTIVE: The patient is a 72-year-old male. Looking comfortable. No fever. No chills. No nausea, vomiting, or diarrhea. No hematuria or hematochezia, but looks little bit slow. PHYSICAL EXAMINATION VITAL SIGNS: The patient has fever 101.3, blood pressure 96/50, respiratory rate 18. HEENT: Head is normocephalic and atraumatic. Eyes, PERRLA. Extraocular muscles intact. Conjunctivae clear. Nose patent. NECK: Supple. No carotid bruit, JVD, or thyromegaly. CHEST: Bilaterally symmetrical. HEART: S1 and S2 positive. LUNGS: Clear to auscultation. ABDOMEN: Soft. Bowel sounds present. No organomegaly. EXTREMITIES: No edema. No cyanosis. NEUROLOGIC: The patient is awake, alert, but is not very talkative. MEDICATIONS: Acetylcysteine, Atrovent, Calan, Eliquis, ferrous gluconate, Keppra, Lanoxin, Lasix, magnesium oxide, Merrem, Pepcid, Pulmicort, Tenormin, Tylenol, vancomycin. LABORATORY DATA: White cells 16.8, hemoglobin 9.2, hematocrit 38.8, platelets 417. Sodium 146, potassium 3.7, BUN 62, creatinine 8.7, phosphorus 2.3, AST 91, ALT 63. ASSESSMENT AND PLAN: Mr. Geo Ewing is a 72-year-old male with leukocytosis, anemia, thrombocytosis, hyperchloremia, renal insufficiency, hyperphosphatemia, abnormal liver function test, sepsis, hematuria, urinary tract infection, seen by Dr. Craig, Infectious Disease; has systemic inflammatory response syndrome; sepsis secondary to healthcare-associated pneumonia; urinary tract infection with pseudomonas; multiple decubitus ulcer; extended-spectrum beta-lactamase associated pneumonia; the patient is on the , vancomycin, Merrem; chronic obstructive pulmonary disease; hypertension; atrial fibrillation; dementia; liver cirrhosis. Overall, prognosis is very poor. Family knows about that. Meanwhile, continue present treatment. Repeat labs. Mariana Fernandez MD
[2018-05-06] MEDS: Meropenem IV 1 gm in NS 1 GM/50 ML BAG IVPB SCH ×3 (06:38→21:32)
[2018-05-06] MEDS: Acetylcysteine 20% Inhal Soln (4ml) IH SCH ×3 (07:20→20:44)
[2018-05-06] MEDS: Budesonide 0.5 mg/2 ml Inhal Susp UD IH SCH ×3 (07:21→20:45)
[2018-05-06] MEDS: Ipratropium 0.02% Inhal Soln (0.5 mg/2.5 ml) UD IH SCH ×3 (07:21→20:44)
--- NOTE | 2018-05-06 10:19 | CP.PCM.PN ---
Subjective - Date & Time of Evaluation Date of Evaluation: 05/06/18 Time of Evaluation: 07:10 - Subjective Subjective: Awake, no distress, comfortable Reason for consultation and follow up:Cardiac evaluation of elevated BNP, history of PPM, atrial fibrillation on Eliquis Seen and examined by me and Objective - Vital Signs/Intake and Output Vital Signs (last 24 hours): Temp Pulse Resp BP Pulse Ox 97.5 F L 125 H 20 121/77 95 05/06/18 06:00 05/06/18 06:00 05/06/18 06:00 05/06/18 06:00 05/06/18 06:00 Intake and Output: 05/06/18 05/06/18 06:59 18:59 Output Total 300 Balance -300 - Medications Medications: Current Medications Acetaminophen (Tylenol 650mg/20.3ml Solution Ud) 650 mg PO Q6H PRN PRN Reason: Pain, Mild (1-3) Last Admin: 05/05/18 22:54 Dose: 650 mg Acetaminophen (Tylenol 650mg/20.3ml Solution Ud) 650 mg PO Q6H PRN PRN Reason: fever Last Admin: 05/01/18 04:39 Dose: 650 mg Acetylcysteine (Acetylcysteine 20%) 4 ml IH TIDRESP [facility] Last Admin: 05/06/18 07:20 Dose: 4 ml Apixaban (Eliquis) 5 mg PEG BID [facility]; Protocol Last Admin: 05/05/18 19:50 Dose: 5 mg Atenolol (Tenormin) 12.5 mg PO DAILY [facility] Last Admin: 05/05/18 16:29 Dose: 12.5 mg Budesonide (Pulmicort Respules) 0.5 mg IH TIDRESP [facility] Last Admin: 05/06/18 07:21 Dose: 0.5 mg Digoxin (Lanoxin) 0.25 mg PO 1400 [facility] Last Admin: 05/05/18 16:29 Dose: 0.25 mg Famotidine (Pepcid) 40 mg PEG HS [facility] Last Admin: 05/05/18 22:54 Dose: 40 mg Ferrous Gluconate (Fergon) 324 mg PO TID [facility] Last Admin: 05/05/18 17:30 Dose: 324 mg Furosemide (Lasix) 40 mg IVP DAILY [facility] Last Admin: 05/05/18 12:01 Dose: 40 mg Meropenem (Merrem Iv 1 Gm Premix) 1 gm in 50 mls @ 100 mls/hr IVPB Q8 [facility]; Protocol Stop: 05/08/18 15:53 Last Admin: 05/06/18 06:38 Dose: 100 mls/hr Vancomycin HCl (Vancomycin 1gm) 1 gm in 250 mls @ 167 mls/hr IVPB 1000,2200 [facility]; Protocol Stop: 05/08/18 16:01 Last Admin: 05/05/18 22:55 Dose: 167 mls/hr Ipratropium [place] (Atrovent) 0.5 mg IH TIDRESP [facility] Last Admin: 05/06/18 07:21 Dose: 0.5 mg Levalbuterol HCl (Xopenex) 1.25 mg IH [id number] PRN PRN Reason: Shortness of Breath Last Admin: 05/04/18 19:29 Dose: 1.25 mg Levetiracetam (Keppra) 500 mg PEG Q12 [facility] Last Admin: 05/05/18 22:54 Dose: 500 mg Magnesium Oxide (Mag-Ox) 400 mg PEG BID [facility] Last Admin: 05/05/18 17:34 Dose: 400 mg Mupirocin (Bactroban Ointment) 0 gm NS BID [facility] Stop: 05/07/18 18:01 Last Admin: 05/05/18 17:30 Dose: 1 appl Sodium Hypochlorite (Dakins Solution 0.25%) 0 ml TOP DAILY [facility] Last Admin: 05/05/18 12:01 Dose: 1 appl Verapamil HCl (Calan Tab) 40 mg PO TID [facility] Last Admin: 05/05/18 19:49 Dose: 40 mg - Labs Labs: 05/04/18 06:45 05/04/18 06:45 PT 16.5 SECONDS (9.4-12.5) H 04/13/18 10:50 INR 1.42 04/13/18 10:50 APTT 28.7 Seconds (25.1-36.5) 04/13/18 10:50 - Constitutional Appears: Non-toxic, No Acute Distress - Head Exam Head Exam: NORMAL INSPECTION - ENT Exam ENT Exam: Mucous Membranes Dry - Respiratory Exam Respiratory Exam: Decreased Breath Sounds, NORMAL BREATHING PATTERN - Cardiovascular Exam Cardiovascular Exam: +S1, +S2 Additional comments: PPM - GI/Abdominal Exam GI & Abdominal Exam: Soft, Normal Bowel Sounds Additional comments: PEG - Exam Additional comments: patton catheter - Extremities Exam Additional comments: contracted - Neurological Exam Neurological Exam: Alert, Awake - Psychiatric Exam Psychiatric exam: Normal Affect, Normal Mood - Skin Skin Exam: Normal Color, Warm Additional comments: multiple skin breakdown Assessment and Plan - Assessment and Plan (Free Text) Assessment: A 72 year old male who was transferred from [facility] due to altered mental status. He is known to service for multiple admissions to [facility] [place]. History of recurrent urinary tract ifection, multiple decubitus ulcers, CVA,right sided hemiparesis, lower and upper extremities contracture, sacral decubitus,throat cancer,swallowing difficulty failed swallowing evalution requiring PEG insertion, sick sinus syndrome requiring PPM, seizure disorder,liver cirrhosis, depression,atrial fibrillation on Eliquis, hypertension. Consult was called to evaluate elevated BNP. Severe malnutrition.Chest Xray-left sided infiltrate. Urine positive for pseudomonas and also left hip decubitus positive for pseudomonas. On IV antibiotics. ID on consult.Heart rate 120's, Will add Atenolol. Plan: No distress, comfortable Heart rate 120's, added Atenolol Blood pressure stable On Eliquis 5 mg BID, Digoxin 0.25 mg daily, Verapamil 40 mg TID, Lasix 40 mg daily,Keppra 500 mg every 12 hours Continue IV antibiotics as ordered Continue current treatment Continue current medications Nutritional support Will follow up Plan and treatment discussed with Dr. Huynh
[2018-05-06] MEDS: Mupirocin 2% Ointment 15 GM TUBE NS SCH ×3 (11:14→18:57)
[2018-05-06] MEDS: Magnesium Oxide 400 mg Tab UD PEG SCH ×2 (11:16→19:40)
[2018-05-06] MEDS: levETIRAcetam 500 mg/5ml UD cups PEG SCH ×2 (11:18→22:30)
[2018-05-06] MEDS: Vancomycin 1gm in NS 250ml 1 GM/250 ML BAG IVPB SCH ×2 (11:18→21:37)
[2018-05-06] MEDS: Acetaminophen 650mg/20.3ml solution UD PO PRN (16:11)
[2018-05-06] MEDS: Digoxin 250 mcg (0.25 mg) Tab PO SCH (16:14)
[2018-05-06] MEDS: Dakin's Topical 0.25%-Half Strength (480 ml) TOP SCH (16:14)
--- NOTE | 2018-05-06 17:45 | PN ---
DATE: 05/06/2018 SUBJECTIVE: The patient is seen earlier today in bed in no acute distress. The patient did have a fever yesterday. The patient's status is unchanged. PHYSICAL EXAMINATION: VITAL SIGNS: temperature is 97, blood pressure is 121/70, respiratory rate of 20, heart rate of 125. HEENT: Unremarkable. NECK: Supple. LUNGS: Have decreased breath sounds. HEART: Normal S1 and S2. ABDOMEN: Soft. LABORATORY DATA: Reveals a white count of 15,800. Hemoglobin of 9, BUN of 62 and creatinine 0.7. Urinalysis is noted.. Stool cultures negative. Serology is negative. Influenza is negative. Microbiology reveals the sputum has gram-negative rods; identification and sensitivity is pending. The urine has Pseudomonas aeruginosa sensitive to Cipro and Zosyn, intermediate to cefepime and that was in the urine. The blood cultures are negative. Review of orders reveals that the patient is on meropenem and vancomycin and Zosyn. The patient did have a new fever last night. ASSESSMENT AND PLAN: This is a 72-year-old male who was seen earlier today in 561 whose status is unchanged. She is responsive, did have a new fever last night. The patient is with systemic inflammatory response syndrome and sepsis secondary to healthcare-associated pneumonia and Pseudomonas urinary tract infection, multiple decubitus ulcers, history of , history of ESBL, day #8 of vancomycin and meropenem, chronic obstructive lung disease, hypertension, dementia, liver cirrhosis. We will repeat blood cultures, blood, urine and sputum, urinalysis, procalcitonin and the patient's last procalcitonin was on 05/02/2018, which was 2.08, and creatinine of 0.7 with an elevated BNP of over 6000 on vancomycin and meropenem. Repeat blood cultures, urine cultures, sputum culture, urinalysis, procalcitonin and the patient's last chest x-ray was on the 05/03/2018. We will follow with you. Overall prognosis is quite poor for this patient. Efra Craig MD
--- NOTE | 2018-05-07 01:34 | PN ---
DATE: 05/06/2018 REFERRING PHYSICIAN: Dr. Fernandez. SUBJECTIVE: Sitting up in bed with multiple obvious lower extremity pressure ulcers, developing contractures. Pulmonary status is a little better after suctioning. No nausea, no vomiting, no diarrhea. OBJECTIVE: GENERAL: No acute distress. VITAL SIGNS: Temperature is 98, heart rate 126, respiratory rate is 20, blood pressure 119/69, pulse ox 95% on nasal cannula. HEENT: Small oral cavity. NECK: Supple. No JVD. LUNGS: Have a scattered rhonchi but fair airflow than yesterday. HEART: S1 and S2. ABDOMEN: Soft, nontender. No organomegaly. EXTREMITIES: No edema. There are multiple pressure ulcers, developing contracture of lower extremity. NEUROLOGICAL: Awake, alert, not much verbal today. MEDICATIONS: He is on Mucomyst inhaled three times a day, Atrovent inhaled three times a day, Calan 40 mg three times a day, digoxin 0.125 mg daily, Eliquis 5 mg twice a day, ferrous gluconate 325 mg three times a day, Keppra 500 mg every 12 hours, Lasix 20 mg daily, magnesium oxide 400 mg G-tube, meropenem 1 g IV every 8 hours, Pepcid 40 mg daily, Pulmicort inhaled three times a day, Tylenol 25 mg daily, vancomycin 1 g IV twice a day, Xopenex inhaled every 6 hours p.r.n. LABORATORY DATA: Reviewed. No new labs available since yesterday. Microbiology, sputum culture has gram-negative rods and yeast. Urine catheter had Pseudomonas aeruginosa. IMPRESSION AND PLAN: Healthcare-associated pneumonia, urinary tract infection, multiple pressure decubitus ulcer, history of head and neck cancer, chronic lung disease, oropharyngeal dysphagia, has a G-tube, history of stroke, cirrhotic liver, diabetes. Pulmonary point of view, is doing okay. Continue antibiotics as per Infectious Diseases., p.r.n. mouth and nasal suction. Concerning tachycardia, I feel probably he has a chronic pain depending on his position. Overall poor prognosis. We will try to place on Duragesic patch small dose and see how he does. Aspiration precaution, pressure ulcer precaution. Being followed by wound care nurse as well as surgical team. Follow up labs in the morning. Thank you, and we will follow with you. Fatoumata Cruz MD
--- NOTE | 2018-05-07 03:29 | PN ---
DATE: 05/06/2018 SUBJECTIVE: The patient is a 72-year-old male. The patient was seen and examined at bedside on 05/06/2018. No change in the status. No headache. No dizziness. No chest pain. No palpitation. The patient is a very poor historian. PHYSICAL EXAMINATION: VITAL SIGNS: Temperature 97.5, pulse 125, respiratory rate 20, blood pressure is 125/77, pulse oximetry 95. HEENT: Head normocephalic, atraumatic. Eyes: PERRLA. Extraocular muscles are intact. Conjunctivae clear. Nose patent. Mucous membrane moist. NECK: Supple. No carotid bruit, JVD, or thyromegaly. CHEST: Bilaterally symmetrical. HEART: S1 and S2 positive. LUNGS: Clear to auscultation. ABDOMEN: Soft. Bowel sound present. No organomegaly. EXTREMITIES: Multiple decubitus ulcers. MEDICATIONS: Tylenol, acetylcysteine, Eliquis, atenolol, Pulmicort, digoxin, Pepcid, iron, Lasix, Merrem, vancomycin, atorvastatin, Xopenex, Keppra. LABORATORY DATA: White blood cells 15.8, hemoglobin 9.3, hematocrit 30.8, platelets 416. Sodium 146, potassium 3.7, BUN 62, creatinine 0.7, glucose 110. ASSESSMENT AND PLAN: Mr. Geo Ewing is a 72-year-old male with leukocytosis, anemia, renal insufficiency, hyperchloremia, recurrent urinary tract infection, multiple decubitus ulcer, cerebrovascular accident with right-sided hemiparesis, lower and upper extremity contractures, sacral decubitus ulcer, throat cancer and swallowing difficulty, having a PEG tube, sick sinus syndrome requiring permanent pacemaker, seizure disorder, liver cirrhosis, depression, atrial fibrillation on Eliquis, hypertension, getting fever, urine positive pseudomonas and also left hip decubitus. Positive for pseudomonas on IV antibiotics. Continue antibiotics as per Infectious Disease. Prognosis poor. Gastrointestinal and deep venous thrombosis prophylaxis. Repeat labs. We will follow up. Mariana Fernandez MD
[2018-05-07] MEDS: Levalbuterol 1.25 MG/3 ML Inhal Soln UD IH PRN ×4 (04:10→20:10)
[2018-05-07] MEDS ORDERED: MethylPREDNISolone 40 mg Vial IVP STA (04:29)
[2018-05-07 04:38] LABS: ARTERIAL BLOOD GAS HCO3 30.5 mmol/L (21-28); ARTERIAL BLOOD GAS HEMOGLOBIN 9.2 g/dL (11.7-17.4); ARTERIAL BLOOD GAS O2 CAPACITY 12.5 mL/dl (16-24); ARTERIAL BLOOD GAS O2 CONTENT 10.2 ML/dl (15-23); ARTERIAL BLOOD GAS O2 SAT 81.5 % (95-98); ARTERIAL BLOOD GAS PCO2 41 mm/Hg (35-45); ARTERIAL BLOOD GAS PH 7.48 (7.35-7.45); ARTERIAL BLOOD GAS TCO2 31.8 mmol.L (22-28)
[2018-05-07] MEDS: Meropenem IV 1 gm in NS 1 GM/50 ML BAG IVPB SCH ×3 (05:15→22:28)
--- NOTE | 2018-05-07 06:49 | CP.PCM.PN ---
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 Huynh Objective - Vital Signs/Intake and Output Vital Signs (last 24 hours): Temp Pulse Resp BP Pulse Ox 98.1 F 121 H 18 120/64 96 05/06/18 22:00 05/06/18 22:00 05/06/18 22:00 05/06/18 22:00 05/06/18 22:00 Intake and Output: 05/06/18 05/07/18 18:59 06:59 Intake Total 0 Output Total 400 Balance -400 - Medications Medications: Current Medications Acetaminophen (Tylenol 650mg/20.3ml Solution Ud) 650 mg PO Q6H PRN PRN Reason: Pain, Mild (1-3) Last Admin: 05/06/18 16:11 Dose: 650 mg Acetaminophen (Tylenol 650mg/20.3ml Solution Ud) 650 mg PO Q6H PRN PRN Reason: fever Last Admin: 05/01/18 04:39 Dose: 650 mg Acetylcysteine (Acetylcysteine 20%) 4 ml IH TIDRESP [facility] Last Admin: 05/06/18 20:44 Dose: 4 ml Apixaban (Eliquis) 5 mg PEG BID [facility]; Protocol Last Admin: 05/06/18 19:37 Dose: 5 mg Atenolol (Tenormin) 25 mg PO DAILY [facility] Last Admin: 05/06/18 15:16 Dose: Not Given Budesonide (Pulmicort Respules) 0.5 mg IH TIDRESP [facility] Last Admin: 05/06/18 20:45 Dose: 0.5 mg Digoxin (Digoxin) 0.125 mg PO 1400 [facility] Famotidine (Pepcid) 40 mg PEG HS [facility] Last Admin: 05/06/18 21:36 Dose: 40 mg Fentanyl (Duragesic) 1 patch TD Q72H [facility] Last Admin: 05/06/18 21:31 Dose: 1 patch Ferrous Gluconate (Fergon) 324 mg PO TID [facility] Last Admin: 05/06/18 19:37 Dose: 324 mg Furosemide (Lasix) 20 mg PO DAILY [facility] Meropenem (Merrem Iv 1 Gm Premix) 1 gm in 50 mls @ 100 mls/hr IVPB Q8 [facility]; Protocol Stop: 05/08/18 15:53 Last Admin: 05/07/18 05:15 Dose: 100 mls/hr Vancomycin HCl (Vancomycin 1gm) 1 gm in 250 mls @ 167 mls/hr IVPB 1000,2200 [facility]; Protocol Stop: 05/08/18 16:01 Last Admin: 05/06/18 21:37 Dose: 167 mls/hr Ipratropium [place] (Atrovent) 0.5 mg IH TIDRESP [facility] Last Admin: 05/06/18 20:44 Dose: 0.5 mg Levalbuterol HCl (Xopenex) 1.25 mg IH [id number] PRN PRN Reason: Shortness of Breath Last Admin: 05/07/18 04:10 Dose: 1.25 mg Levetiracetam (Keppra) 500 mg PEG Q12 [facility] Last Admin: 05/06/18 22:30 Dose: 500 mg Magnesium Oxide (Mag-Ox) 400 mg PEG BID [facility] Last Admin: 05/06/18 19:40 Dose: 400 mg Mupirocin (Bactroban Ointment) 0 gm NS BID [facility] Stop: 05/07/18 18:01 Last Admin: 05/06/18 18:57 Dose: 2 appl Sodium Hypochlorite (Dakins Solution 0.25%) 0 ml TOP DAILY [facility] Last Admin: 05/06/18 16:14 Dose: 2 appl Verapamil HCl (Calan Tab) 40 mg PO TID [facility] Last Admin: 05/06/18 19:37 Dose: 40 mg - Labs Labs: 05/04/18 06:45 05/04/18 06:45 PT 16.5 SECONDS (9.4-12.5) H 04/13/18 10:50 INR 1.42 04/13/18 10:50 APTT 28.7 Seconds (25.1-36.5) 04/13/18 10:50 - Constitutional Appears: Non-toxic, No Acute Distress - Eye Exam Eye Exam: Normal appearance Pupil Exam: NORMAL ACCOMODATION - ENT Exam ENT Exam: Mucous Membranes Dry - Respiratory Exam Respiratory Exam: Decreased Breath Sounds, NORMAL BREATHING PATTERN Additional comments: NRM saturation 96% - Cardiovascular Exam Cardiovascular Exam: +S1, +S2 Additional comments: PPM - GI/Abdominal Exam GI & Abdominal Exam: Soft, Normal Bowel Sounds Additional comments: PEG - Extremities Exam Additional comments: contracted extremities - Neurological Exam Neurological Exam: Alert, Awake - Psychiatric Exam Psychiatric exam: Normal Affect, Normal Mood - Skin Skin Exam: Normal Color, Warm Additional comments: multiple skin breakdown Assessment and Plan - Assessment and Plan (Free Text) Assessment: A 72 year old male who was [facility] due to altered mental status. He is known to service for multiple admissions to [facility] [place]. History of recurrent urinary tract ifection, multiple decubitus ulcers, CVA,right sided hemiparesis, lower and upper extremities contracture, sacral decubitus,throat cancer,swallowing difficulty failed swallowing evalution requiring PEG insertion, sick sinus syndrome requiring PPM, seizure disorder,liver cirrhosis, depression,atrial fibrillation on Eliquis, hypertension. Consult was called to evaluate elevated BNP. Severe malnutrition.Chest Xray-left sided infiltrate. Uri ne positive for pseudomonas and also left hip decubitus positive for pseudomonas. On IV antibiotics. ID on consult. Heart rate 120's, Added Atenolol. Episode of saturation down to 70%, NRM 100% and nebulizer treatment with resolution. Plan: No distress, comfortable, episode of oxygen saturation at 70's last night placed on NRM at 100%. Saturation improved to 96%, nebulizer and steroids given Heart rate 120's, still elevated inspite of adding atenolol, Will increase Calan Blood pressure stable On Eliquis 5 mg BID, Digoxin 0.25 mg daily, Verapamil 40 mg TID, Lasix 40 mg daily,Keppra 500 mg every 12 hours Continue IV antibiotics as ordered Continue current treatment Continue current medications Nutritional support Will follow up Plan and treatment discussed with Dr. Huynh
--- NOTE | 2018-05-07 07:00 | CP.PCM.PCO ---
<Gem Franks - Last Filed: 05/07/18 06:57> Physician Communication Note - Physician Communication Note Physician Communication Note: O2 sat dropped to 70s overnight. Given duonebs, steroids with improvement <Sun Blake - Last Filed: 05/07/18 19:41> Attending/Attestation - Attestation I have personally seen and examined this patient.: No I have fully participated in the care of the patient.: No I have reviewed all pertinent clinical information: Yes Notes (Text): 05/07/18 19:40 I had opened chart to sign the document. Chart reviewed.
[2018-05-07 07:10] LABS: BASO # 0.02 K/mm3 (0.0-2.0); BASO % 0.1 % (0.0-3.0); EOS # 0.2 (0.0-0.7); EOS % 1.4 % (1.5-5.0); GRAN # 15.48 (1.4-6.5); HEMOGLOBIN 9.3 g/dL (14.0-18.0); LYMPH # 0.9 (1.2-3.4); MEAN CELL VOLUME 84.2 fl (80.0-105.0); MEAN CORPUSCULAR HEMOGLOBIN 24.9 pg (25.0-35.0); MEAN CORPUSCULAR HGB CONC 29.5 g/dl (31.0-37.0); MEAN PLATELET VOLUME 9.3 fl (7.0-11.0); MONO # 0.6 (0.1-0.6); MONO % 3.5 % (1.0-6.0); PLATELET COUNT 456 10^3/uL (120.0-450.0); RBC 3.74 10^6/uL (3.5-6.1); RED CELL DISTRIBUTION WIDTH 18.5 % (11.5-14.5); WHITE BLOOD COUNT 17.2 10^3/uL (4.5-11.0)
[2018-05-07 07:25] LABS: BLOOD UREA NITROGEN 66 mg/dL (7-21); CALCIUM 8.9 mg/dL (8.4-10.5); GFR NON-AFRICAN AMERICAN > 60
[2018-05-07] MEDS: Ipratropium 0.02% Inhal Soln (0.5 mg/2.5 ml) UD IH SCH ×3 (07:33→20:10)
[2018-05-07] MEDS: Acetylcysteine 20% Inhal Soln (4ml) IH SCH ×3 (07:33→20:10)
[2018-05-07] MEDS: Budesonide 0.5 mg/2 ml Inhal Susp UD IH SCH ×2 (07:34→20:10)
--- NOTE | 2018-05-07 07:51 | PN ---
DATE: 05/04/2018 SEX OF THE PATIENT: Male. AGE OF THE PATIENT: 72. TYPE OF DICTATION: Progress note. REFERRING PHYSICIAN: REASON FOR CONSULTATION: Followup, cardiac evaluation, elevated BNP, history of pacemaker, history atrial fibrillation and on Eliquis, multiple bed sores. This note is in addition to dictated by our nurse practitioner, Suzan Ceaj. LABORATORY DATA: Hemoglobin today is 9.3 and hematocrit 30.8. Chemistry shows sodium 124 and potassium 3.7. IMPRESSION: A 72-year-old male with past medical history of head and neck cancer, status post surgery, difficulty in swallowing evaluation, status post percutaneous endoscopic gastrostomy, status post permanent pacemaker in 07/2017 for atrial fibrillation. RECOMMENDATIONS: Continue Eliquis. Increase nutritional support. We will start free water through the PEG and start digoxin as well as verapamil. The patient is prerenal azotemic. Increase nutritional support. Overall, the patient's clinical long-term prognosis is guarded. We will follow with you. We will start free water 200 mL through the PEG. Also supplement potassium elixir. Thank you Dr. Fernandez for providing us the opportunity in taking care of the patient. Fatoumata Huynh MD
[2018-05-07 08:01] LABS: BAND 1 % (0-2); EOSINOPHIL 1 % (0.0-3.0); LYMPHOCYTE 9 % (22.0-35.0); MONOCYTE 2 % (1.0-6.0); NEUTROPHIL 87 % (50.0-70.0); PLATELET ESTIMATE NORMAL (NORMAL)
--- NOTE | 2018-05-07 08:34 | PN ---
DATE: 05/06/2018 LOCATION: The patient in room 561, bed 2. Detailed note has been written by Suzan Ceja. The patient still has sinus tachycardia around 120 per minute, so we are going to increase atenolol to 25 mg daily to try to control the heart rate, and we will continue to monitor the heart rate and adjust the medication. Yesterday, we started with atenolol 12.5 mg, but today we are going to start with 25 mg. He is also on digoxin 0.25 mg daily, verapamil 40 mg t.i.d., We will also discontinue IV Lasix, and we will put him on Lasix 40 mg p.o. daily at this moment. Clinically, the patient is not in CHF. We will also cut down digoxin 0.125 mg daily because BUN is elevated. We will follow. Fatoumata Torres MD
--- NOTE | 2018-05-07 09:51 | RAD ---
Date of service: 05/07/2018 HISTORY: shortness of breath COMPARISON: Comparison is made with 05/03/2018 FINDINGS: LUNGS: Interval appearance of heterogeneous opacity at the right lower lobe since the previous exam. PLEURA: There is suspicious for right pleural effusion. CARDIOVASCULAR: No aortic atherosclerotic calcification present. Normal cardiac size. Mild pulmonary vascular congestion is noted more prominent compared to the previous exam. Single wire left-sided defibrillator or AICD is again seen in place. OSSEOUS STRUCTURES: No significant abnormalities. VISUALIZED UPPER ABDOMEN: Normal. OTHER FINDINGS: None. IMPRESSION: Interval appearance of heterogeneous opacity at the right lower lung associated with right pleural effusion. Please correlate clinically for pneumonia. [id number] pulmonary vascular congestion.
[2018-05-07] MEDS: Mupirocin 2% Ointment 15 GM TUBE NS SCH ×2 (12:00→18:02)
[2018-05-07] MEDS: Dakin's Topical 0.25%-Half Strength (480 ml) TOP SCH (12:00)
--- NOTE | 2018-05-07 13:12 | CP.PCM.PN ---
Subjective - Date & Time of Evaluation Date of Evaluation: 05/07/18 Time of Evaluation: 12:48 - Subjective Subjective: Podiatry progress note for attending Dr. Herndon; 72 y/o M patient seen and evaluated at the bedside for bilateral lower extremity wounds. Patient was sleeping during evaluation. As per his chart has fever today. Patient is a poor historian. Patient shows some pain during dressing change. Patient in a contracted position. Patient was not wearing his multipodus boot during exam time. Objective - Vital Signs/Intake and Output Vital Signs (last 24 hours): Temp Pulse Resp BP Pulse Ox 100.2 F H 124 H 22 94/57 L 0 L 05/07/18 06:00 05/07/18 06:00 05/07/18 06:00 05/07/18 06:00 05/07/18 06:00 Intake and Output: 05/07/18 05/07/18 06:59 18:59 Intake Total 0 Output Total 400 Balance -400 - Medications Medications: Current Medications Acetaminophen (Tylenol 650mg/20.3ml Solution Ud) 650 mg PO Q6H PRN PRN Reason: Pain, Mild (1-3) Last Admin: 05/06/18 16:11 Dose: 650 mg Acetaminophen (Tylenol 650mg/20.3ml Solution Ud) 650 mg PO Q6H PRN PRN Reason: fever Last Admin: 05/01/18 04:39 Dose: 650 mg Acetylcysteine (Acetylcysteine 20%) 4 ml IH TIDRESP [facility] Last Admin: 05/07/18 07:33 Dose: 4 ml Apixaban (Eliquis) 5 mg PEG BID [facility]; Protocol Last Admin: 05/06/18 19:37 Dose: 5 mg Atenolol (Tenormin) 25 mg PO DAILY [facility] Last Admin: 05/06/18 15:16 Dose: Not Given Budesonide (Pulmicort Respules) 0.5 mg IH TIDRESP [facility] Last Admin: 05/07/18 07:34 Dose: 0.5 mg Digoxin (Digoxin) 0.125 mg PO 1400 [facility] Famotidine (Pepcid) 40 mg PEG HS [facility] Last Admin: 05/06/18 21:36 Dose: 40 mg Ferrous Gluconate (Fergon) 324 mg PO TID [facility] Last Admin: 05/06/18 19:37 Dose: 324 mg Furosemide (Lasix) 20 mg PO DAILY [facility] Meropenem (Merrem Iv 1 Gm Premix) 1 gm in 50 mls @ 100 mls/hr IVPB Q8 [facility]; Protocol Stop: 05/08/18 15:53 Last Admin: 05/07/18 05:15 Dose: 100 mls/hr Vancomycin HCl (Vancomycin 1gm) 1 gm in 250 mls @ 167 mls/hr IVPB 1000,2200 [facility]; Protocol Stop: 05/08/18 16:01 Last Admin: 05/06/18 21:37 Dose: 167 mls/hr Ipratropium [place] (Atrovent) 0.5 mg IH TIDRESP [facility] Last Admin: 05/07/18 07:33 Dose: 0.5 mg Levalbuterol HCl (Xopenex) 1.25 mg IH [id number] PRN PRN Reason: Shortness of Breath Last Admin: 05/07/18 07:34 Dose: 1.25 mg Levetiracetam (Keppra) 500 mg PEG Q12 [facility] Last Admin: 05/06/18 22:30 Dose: 500 mg Magnesium Oxide (Mag-Ox) 400 mg PEG BID [facility] Last Admin: 05/06/18 19:40 Dose: 400 mg Mupirocin (Bactroban Ointment) 0 gm NS BID [facility] Stop: 05/07/18 18:01 Last Admin: 05/06/18 18:57 Dose: 2 appl Sodium Hypochlorite (Dakins Solution 0.25%) 0 ml TOP DAILY [facility] Last Admin: 05/06/18 16:14 Dose: 2 appl Verapamil HCl (Calan Tab) 80 mg PO TID [facility] - Labs Labs: 05/07/18 06:30 05/07/18 06:30 PT 16.5 SECONDS (9.4-12.5) H 04/13/18 10:50 INR 1.42 04/13/18 10:50 APTT 28.7 Seconds (25.1-36.5) 04/13/18 10:50 - Head Exam Head Exam: ATRAUMATIC - Extremities Exam Additional comments: B/L LE focused exam: Vasc: DP/PT pulses faintly palpable 1/4 b/l. Skin temperature warm to warm from proximal to distal. Cap refill < 3 seconds to all digits b/l. No edema noted b/l Neuro: unable to assess. Patient is not cooperative Derm: R- multiple areas of superficial skin wounds noted thigh and the foot, no malodor, no drainage, no clinical signs of infection L- multiple areas of dried blisters and superficial ulcers noted to the lateral aspect of the 5th digit and dorso-lateral aspect of the foot along with a heel ulceration, No erythema, malodor, drainage, tracking, tunneling, undermining, probe to bone, or other clinical signs of infection noted MSK: Minimal tenderness on palpation to left heel. Rigid contracture of all digits 1-5 b/l. Otherwise, no gross deformities noted. Unable to assess muscle strength secondary to patient mental status. Pain with attempt to change the patient position to change the dressing Assessment and Plan - Assessment and Plan (Free Text) Assessment: 72 y/o M patient seen and evaluated at the bedside for bilateral lower extremity wounds Plan: Patient seen and evaluated at the bedside Plans discussed with Dr. Herndon Charts, labs and vitals reviewed; Patient is febrile 101.1, WBCs 17.2 Right Lower Extremity Wounds- optiofoam applied to all wounds Left Lower Extremity Wounds- optifoam applied to all wounds Multipodus boots recommended for patient at all times Podiatry will change dressings every MWF and will continue to follow up the patient while in house
[2018-05-07] MEDS: Magnesium Oxide 400 mg Tab UD PEG SCH ×2 (13:29→18:01)
[2018-05-07] MEDS: Vancomycin 1gm in NS 250ml 1 GM/250 ML BAG IVPB SCH ×2 (13:30→22:30)
--- NOTE | 2018-05-07 14:26 | PN ---
DATE: 05/07/2018 PULMONARY PROGRESS NOTE REFERRING PHYSICIAN: Mariana Fernandez MD. SUBJECTIVE: The patient in bed, awake, nonrebreather mask in place, spoke with inhouse nurse practitioner who reported that the patient was lethargic this morning and desaturating into the 70s; therefore, nonrebreather was placed. Chest x-ray and echo were ordered. The patient also noted to be febrile this morning. PHYSICAL EXAMINATION: GENERAL: No acute distress. VITAL SIGNS: Blood pressure 94/57; pulse 124; temperature 100.2; oxygen saturation 96, nonrebreather. HEENT: Small oral cavity. NECK: Supple. No JVD. LUNGS: Scattered rhonchi bilaterally. CARDIOPULMONARY: S1 and S2 audible. ABDOMEN: Soft and nontender. No organomegaly. Gastrostomy tube in place. EXTREMITIES: No bilateral lower extremities edema. Multiple pressure ulcers contractures of lower extremity. NEUROLOGIC: Awake, alert, nonverbal. MEDICATIONS: Tylenol 650 mg p.o. every 6 hours p.r.n., Tylenol 650 mg p.o. every 6 hours p.r.n. for fever, Mucomyst 4 mL inhalation 3 times a day, Eliquis 5 mg twice a day, atenolol 25 mg daily, Pulmicort 0.5 mg inhalation 3 times a day, digoxin 0.125 mg daily, Pepcid 40 mg at bedtime, ferrous gluconate 324 mg 3 times a day, Lasix 20 mg daily, Atrovent 0.5 mg inhalation 3 times a day, Xopenex 1.25 mg inhalation every 6 hours p.r.n., Keppra 500 mg every 12 hours, magnesium oxide 400 mg twice a day, meropenem 1 g IV piggyback every 8 hours, Bactroban topically twice a day, Dakin's solution topically daily, vancomycin 1 g IV piggyback twice a day, verapamil 80 mg p.o. 3 times a day. LABORATORY DATA: Reviewed. WBC 17.2, RBC 3.74, hemoglobin 9.3, hematocrit 31.5, platelets 456. PCO2 41, pO2 45, HCO3 of 30. ABG: pH 7.48. Sodium 151, potassium 3.9, chloride 117, carbon dioxide 33, anion gap 6, BUN 66, creatinine 0.9. GFR greater than 60. Random glucose 109, calcium 8.9, phosphorus 3.5, magnesium 2.4, procalcitonin 0.54, digoxin 1.8. Influenza type A and B negative for flu A and B. Chest x-ray: Interval appearance of heterogenous opacity at the right lower lung associated with right pleural effusion. Please correlate clinically for pneumonia, mild to moderate pulmonary vascular congestion. IMPRESSION AND PLAN: Healthcare-associated pneumonia, urinary tract infection, multiple pressure decubitus ulcers, history of head and neck cancer, chronic lung disease, oropharyngeal dysphasia, has gastrostomy tube, history of stroke, psoriatic liver, diabetes. Pulmonary point of view, we will discontinue Duragesic patch, may be source of the patient's lethargy. Continue broad-spectrum antibiotic. We will add BiPAP at night. We will start the patient on high-flow oxygen during the daytime. Spoke to inhouse nurse practitioner, who reports that palliative care consult was done previously and family wants full treatment for the patient. At this time, we will recommend another palliative care consult. We will start remote telemetry due to tachycardia. Overall, prognosis is poor. Aspiration precaution, pressure ulcer precaution, wound care. This patient was seen and examined with Dr. Cruz. Discussed assessment and plan as described above. Thank you for this consult. We will follow with you. Bryn Rosa APN Fatoumata Cruz MD
--- NOTE | 2018-05-07 14:56 | CP.PCM.PN ---
Subjective - Date & Time of Evaluation Date of Evaluation: 05/07/18 Time of Evaluation: 15:00 - Subjective Subjective: Lethargic, weak Objective - Vital Signs/Intake and Output Vital Signs (last 24 hours): Temp Pulse Resp BP Pulse Ox 98.3 F 110 H 20 108/44 L 94 L 05/07/18 14:41 05/07/18 14:41 05/07/18 14:41 05/07/18 14:41 05/07/18 14:41 Intake and Output: 05/07/18 05/07/18 06:59 18:59 Intake Total 0 Output Total 400 Balance -400 - Medications Medications: Current Medications Acetaminophen (Tylenol 650mg/20.3ml Solution Ud) 650 mg PO Q6H PRN PRN Reason: Pain, Mild (1-3) Last Admin: 05/06/18 16:11 Dose: 650 mg Acetaminophen (Tylenol 650mg/20.3ml Solution Ud) 650 mg PO Q6H PRN PRN Reason: fever Last Admin: 05/01/18 04:39 Dose: 650 mg Acetylcysteine (Acetylcysteine 20%) 4 ml IH TIDRESP [facility] Last Admin: 05/07/18 13:30 Dose: 4 ml Apixaban (Eliquis) 5 mg PEG BID [facility]; Protocol Last Admin: 05/06/18 19:37 Dose: 5 mg Atenolol (Tenormin) 25 mg PO DAILY [facility] Last Admin: 05/07/18 10:00 Dose: Not Given Budesonide (Pulmicort Respules) 0.5 mg IH TIDRESP [facility] Last Admin: 05/07/18 07:34 Dose: 0.5 mg Digoxin (Digoxin) 0.125 mg PO 1400 [facility] Famotidine (Pepcid) 40 mg PEG HS [facility] Last Admin: 05/06/18 21:36 Dose: 40 mg Ferrous Gluconate (Fergon) 324 mg PO TID [facility] Last Admin: 05/07/18 13:28 Dose: 324 mg Furosemide (Lasix) 20 mg PO DAILY [facility] Last Admin: 05/07/18 10:00 Dose: Not Given Meropenem (Merrem Iv 1 Gm Premix) 1 gm in 50 mls @ 100 mls/hr IVPB Q8 [facility]; Protocol Stop: 05/08/18 15:53 Last Admin: 05/07/18 05:15 Dose: 100 mls/hr Vancomycin HCl (Vancomycin 1gm) 1 gm in 250 mls @ 167 mls/hr IVPB 1000,2200 [facility]; Protocol Stop: 05/08/18 16:01 Last Admin: 05/07/18 13:30 Dose: 167 mls/hr Ipratropium [place] (Atrovent) 0.5 mg IH TIDRESP [facility] Last Admin: 05/07/18 13:31 Dose: 0.5 mg Levalbuterol HCl (Xopenex) 1.25 mg IH [id number] PRN PRN Reason: Shortness of Breath Last Admin: 05/07/18 13:31 Dose: 1.25 mg Levetiracetam (Keppra) 500 mg PEG Q12 [facility] Last Admin: 05/06/18 22:30 Dose: 500 mg Magnesium Oxide (Mag-Ox) 400 mg PEG BID [facility] Last Admin: 05/07/18 13:29 Dose: 400 mg Mupirocin (Bactroban Ointment) 0 gm NS BID [facility] Stop: 05/07/18 18:01 Last Admin: 05/06/18 18:57 Dose: 2 appl Sodium Hypochlorite (Dakins Solution 0.25%) 0 ml TOP DAILY [facility] Last Admin: 05/06/18 16:14 Dose: 2 appl Verapamil HCl (Calan Tab) 80 mg PO TID [facility] Last Admin: 05/07/18 10:00 Dose: Not Given - Labs Labs: 05/07/18 06:30 05/07/18 06:30 PT 16.5 SECONDS (9.4-12.5) H 04/13/18 10:50 INR 1.42 04/13/18 10:50 APTT 28.7 Seconds (25.1-36.5) 04/13/18 10:50 - Constitutional Appears: Cachectic, Chronically Ill - Eye Exam Eye Exam: Normal appearance, PERRL - ENT Exam ENT Exam: Mucous Membranes Moist - Respiratory Exam Respiratory Exam: Decreased Breath Sounds, Rhonchi - Cardiovascular Exam Cardiovascular Exam: REGULAR RHYTHM, +S1, +S2 - GI/Abdominal Exam GI & Abdominal Exam: Soft, Normal Bowel Sounds - Skin Skin Exam: Pallor, Petechiae Assessment and Plan - Assessment and Plan (Free Text) Assessment: 72 year old male with history of A Fib, dementia, HTN, CVA, right alfa paresis,cirrhosis, dyspahgia s/p PEG placement who is admitted with CAP, sepsis,SIRS, UTI, multiple deucbitis ulcers, contracture of all extremities. I spoke with patients daughter Eladia via phone. Reviewed benefits and burdens of CPR/intubation, as I had done with her earlier this admission. Eladia verbalized understanding of the ramifications of CPR/intubation. I also initiated conversation regarding goals of care, option for hospice presented. Eladia not interested in hospice at this time. She wants her father to remain full code. Time spent with daughter Eladia in goals of care and advance care planning conversation, 20 minutes Plan: Goals of care and advance care planning Wound care daily, air mattress, frequent repositioning Sepsis/CAP/UTI: Continue Merrem, ID following Continue Elliquis,Verapamil, enormin,Lasix, Digoxin, ECHO results pending Respiratory insufficiency: Xopenex, Pulmicort, solumedrol, Atrovent, Acetylcysteine
--- NOTE | 2018-05-07 15:20 | CARD ---
APPROVED REPORT Date of service: 05/07/2018 EXAM: Two-dimensional and M-mode echocardiogram with Doppler and color Doppler. INDICATION Infection:Rule out subacute bacterial endocarditis 2D DIMENSIONS Left Atrium (2D)4.5 (1.6-4.0cm)IVSd0.9 (0.7-1.1cm) LVDd3.1 (3.9-5.9cm)PWd1.1 (0.7-1.1cm) M-Mode DIMENSIONS Aortic Root3.80 (2.2-3.7cm)Aortic Cusp Exc.2.00 (1.5-2.0cm) Aortic Valve AoV Peak Nuccvnpi96.0cm/Dianne Peak GR.4mmHg Mitral Valve E/A ratio0.0 TDI E/Lateral E'0.0E/Medial E'0.0 Pulmonary Valve PV Peak Joxdntzb12.5cm/sPV Peak Grad.2mmHg Tricuspid Valve TR Peak [id number]/sRAP [id number] Peak Gr.40mmHg [id number] LEFT VENTRICLE The left ventricle is normal size. There is normal left ventricular wall thickness. The left ventricle is hyperdynamic. There is normal LV segmental wall motion. RIGHT VENTRICLE The right ventricle is normal size. There is normal right ventricular wall thickness. The right ventricular systolic function is normal. There is a pacemaker lead in the right ventricle. ATRIA The left atrium is mildly dilated. The right atrium is mildly dilated. AORTIC VALVE The aortic valve is not well visualized. No aortic regurgitation is present. There is no aortic valvular stenosis. MITRAL VALVE The mitral valve is mildly thickened. There is no mitral valve regurgitation noted. There is no mitral valve stenosis. TRICUSPID VALVE There is mild tricuspid regurgitation. There is mild to moderate pulmonary hypertension. GREAT VESSELS The aortic root is mildly enlarged. PERICARDIAL EFFUSION There is a trace pericardial effusion. <Conclusion> The left ventricle is normal size. There is normal left ventricular wall thickness. The left ventricle is hyperdynamic. There is normal LV segmental wall motion. There is mild tricuspid regurgitation. There is mild to moderate pulmonary hypertension. There is a pacemaker lead in the right ventricle. No clear vegitation seen, However, Consider SHANDRA if there is a high clinical suspicion
[2018-05-07] MEDS ORDERED: Digoxin 500 mcg/2ml (0.5 mg/2ml) Inj IVP ONE (15:26)
[2018-05-07] MEDS: levETIRAcetam 500 mg/5ml UD cups PEG SCH ×2 (18:01→22:29)
[2018-05-07] MEDS: Digoxin 125 mcg (0.125 mg) Tab PO SCH (18:07)
--- NOTE | 2018-05-07 20:13 | CP.PCM.PN ---
Subjective - Date & Time of Evaluation Date of Evaluation: 05/07/18 Time of Evaluation: 08:30 - Subjective Subjective: Somewhat lethargic, still with low grade fevers. Objective - Vital Signs/Intake and Output Vital Signs (last 24 hours): Temp Pulse Resp BP Pulse Ox 97.5 F L 126 H 20 119/69 95 05/06/18 06:00 05/06/18 19:37 05/06/18 06:00 05/06/18 19:37 05/06/18 06:00 - Medications Medications: Current Medications Acetaminophen (Tylenol 650mg/20.3ml Solution Ud) 650 mg PO Q6H PRN PRN Reason: Pain, Mild (1-3) Last Admin: 05/06/18 16:11 Dose: 650 mg Acetaminophen (Tylenol 650mg/20.3ml Solution Ud) 650 mg PO Q6H PRN PRN Reason: fever Last Admin: 05/01/18 04:39 Dose: 650 mg Acetylcysteine (Acetylcysteine 20%) 4 ml IH TIDRESP [facility] Last Admin: 05/06/18 20:44 Dose: 4 ml Apixaban (Eliquis) 5 mg PEG BID [facility]; Protocol Last Admin: 05/06/18 19:37 Dose: 5 mg Atenolol (Tenormin) 25 mg PO DAILY [facility] Last Admin: 05/06/18 15:16 Dose: Not Given Budesonide (Pulmicort Respules) 0.5 mg IH TIDRESP [facility] Last Admin: 05/06/18 20:45 Dose: 0.5 mg Digoxin (Digoxin) 0.125 mg PO 1400 [facility] Famotidine (Pepcid) 40 mg PEG HS [facility] Last Admin: 05/06/18 21:36 Dose: 40 mg Fentanyl (Duragesic) 1 patch TD Q72H [facility] Last Admin: 05/06/18 21:31 Dose: 1 patch Ferrous Gluconate (Fergon) 324 mg PO TID [facility] Last Admin: 05/06/18 19:37 Dose: 324 mg Furosemide (Lasix) 20 mg PO DAILY [facility] Meropenem (Merrem Iv 1 Gm Premix) 1 gm in 50 mls @ 100 mls/hr IVPB Q8 [facility]; Protocol Stop: 05/08/18 15:53 Last Admin: 05/06/18 21:32 Dose: 100 mls/hr Vancomycin HCl (Vancomycin 1gm) 1 gm in 250 mls @ 167 mls/hr IVPB 1000,2200 [facility]; Protocol Stop: 05/08/18 16:01 Last Admin: 05/06/18 21:37 Dose: 167 mls/hr Ipratropium [place] (Atrovent) 0.5 mg IH TIDRESP [facility] Last Admin: 05/06/18 20:44 Dose: 0.5 mg Levalbuterol HCl (Xopenex) 1.25 mg IH [id number] PRN PRN Reason: Shortness of Breath Last Admin: 05/04/18 19:29 Dose: 1.25 mg Levetiracetam (Keppra) 500 mg PEG Q12 [facility] Last Admin: 05/06/18 11:18 Dose: 500 mg Magnesium Oxide (Mag-Ox) 400 mg PEG BID [facility] Last Admin: 05/06/18 19:40 Dose: 400 mg Mupirocin (Bactroban Ointment) 0 gm NS BID [facility] Stop: 05/07/18 18:01 Last Admin: 05/06/18 18:57 Dose: 2 appl Sodium Hypochlorite (Dakins Solution 0.25%) 0 ml TOP DAILY [facility] Last Admin: 05/06/18 16:14 Dose: 2 appl Verapamil HCl (Calan Tab) 40 mg PO TID [facility] Last Admin: 05/06/18 19:37 Dose: 40 mg - Labs Labs: 05/04/18 06:45 05/04/18 06:45 PT 16.5 SECONDS (9.4-12.5) H 04/13/18 10:50 INR 1.42 04/13/18 10:50 APTT 28.7 Seconds (25.1-36.5) 04/13/18 10:50 - Constitutional Appears: Cachectic, Chronically Ill, Other (somewhat lethargic) - Head Exam Head Exam: NORMAL INSPECTION - Respiratory Exam Respiratory Exam: Decreased Breath Sounds - Cardiovascular Exam Cardiovascular Exam: +S1, +S2 - GI/Abdominal Exam GI & Abdominal Exam: Soft. absent: Tenderness Assessment and Plan - Assessment and Plan (Free Text) Plan: Assessment new onset systemic inflammatory response syndrome while treating sepsis due to HCAP and UTI with Pseudomonas, R/O another source of sepsis due to multiple sacral ulcers, grew Pseudomonas history of sepsis due to right lower lobe HCAP with ESBL E. coli left hip wound infection HTN COPD atrial fibrillation throat cancer dementia history of CVA of left frontal lobe liver cirrhosis Plan continue Vancomycin and Merrem day 9 and follow up repeat blood, sputum cx, CXR, PCT overall prognosis is poor will get rapid flu test since patient continues to be febrile
--- NOTE | 2018-05-07 20:19 | PN ---
DATE: 05/07/2018 SEX OF THE PATIENT: Male. AGE OF THE PATIENT: 72. TYPE OF DICTATION: Progress note. REFERRING PHYSICIAN: . REASON FOR CONSULTATION: Cardiac evaluation, BNP, history of pacemaker, history atrial fibrillation, on Eliquis. This note is in addition to dictated by nurse practitioner. The patient is fairly stable. History of atrial fibrillation, on pacemaker. History of protein-calorie malnutrition, history of cirrhosis, depression, atrial fibrillation. Heart rate is at 120s. RECOMMENDATIONS: We will increase verapamil to 80 mg p.o. t.i.d. as his blood pressure tolerates. Continue digoxin. We will give one dose of digoxin extra and increase to 0.25 mg from tomorrow. Repeat the digoxin level in two days. Last digoxin was 1.8 today. Repeat the digoxin level in the morning. Thank you Dr. Fernandez for providing us the opportunity in taking care of the patient, Geo Ewing. Fatoumata Huynh MD
[2018-05-08] MEDS ORDERED: Metoprolol 1 mg/ml Inj IVP STA ×2 (02:01→03:06)
[2018-05-08 03:30] LABS: HEMOGLOBIN 8.7 g/dL (14.0-18.0); MEAN CELL VOLUME 84.5 fl (80.0-105.0); MEAN CORPUSCULAR HEMOGLOBIN 24.9 pg (25.0-35.0); MEAN CORPUSCULAR HGB CONC 29.5 g/dl (31.0-37.0); MEAN PLATELET VOLUME 8.8 fl (7.0-11.0); RBC 3.49 10^6/uL (3.5-6.1); RED CELL DISTRIBUTION WIDTH 18.7 % (11.5-14.5)
--- NOTE | 2018-05-08 03:37 | PN ---
DATE: 05/07/2018 SUBJECTIVE: The patient is a 72-year-old male. The patient was seen and examined at bedside on 05/07/2018. Looks lethargic. Looks chronically ill. Having low-grade fever, getting oxygen with Ventimask. He is not able to give review of systems. PHYSICAL EXAMINATION: VITAL SIGNS: Temperature 97.5, pulse 126, respiratory rate 20, blood pressure 120/60, pulse oximetry 95. HEENT: Head normocephalic, atraumatic. Eyes: PERRLA. Extraocular muscles are intact. Conjunctivae clear. Nose patent. Mucous membranes moist. NECK: Supple. No carotid bruit, JVD, or thyromegaly. CHEST: Bilaterally symmetrical. HEART: S1 and S2 positive. LUNGS: Clear to auscultation. ABDOMEN: Soft. Bowel sounds present. No organomegaly. EXTREMITIES: No edema. No cyanosis. NEUROLOGIC: The patient is awake and alert. Follows simple commands. MEDICATIONS: Tylenol, acetylcysteine, Eliquis, atenolol, Pulmicort, digoxin, Duragesic, iron, Lasix, vancomycin, atorvastatin, Xopenex, Keppra, magnesium oxide, , and vancomycin. LABORATORY DATA: We do not has lab today but review old labs. ASSESSMENT AND PLAN: Mr. Geo Ewing is a 72-year-old male with leukocytosis, anemia, hyperchloremia, renal insufficiency, has systemic inflammatory response syndrome while treating sepsis due to healthcare-associated pneumonia and urinary tract infection with pseudomonas, rule out another source of sepsis, due to multiple sacral decubitus ulcers, grew pseudomonas. History of sepsis due to right lower lobe healthcare-associated pneumonia with extended-spectrum beta-lactamase Escherichia coli, left hip wound infection, hypertension, chronic obstructive pulmonary disease exacerbation, history of throat cancer, dysphagia, getting percutaneous endoscopic gastrostomy tube, dementia, history of cerebrovascular accident, left frontal lobe liver cirrhosis. Length of time discussion done with the nursing staff. According to Infectious Disease, continue vancomycin and Merrem, day 9 and follow up repeat blood culture. Infectious Disease will get rapid flu test, seen by Florina Cleveland, comfort care nurse. Continue present treatment. I spoke to patient's daughter, Eladia, via phone the importance of cardiopulmonary resuscitation intubation. This is actually the second time Florina is calling Eladia. Eladia said that she understands the ramification of cardiopulmonary resuscitation intubation. I also initiated conversion regarding goals of care options for hospice presentation. Eladia not interested in hospice at this time. She wanted her father to remain full code. Maybe we will try to transfer the patient to long-term acute acre. We will follow up. Mariana Fernandez MD
[2018-05-08 03:41] LABS: WHITE BLOOD COUNT 28.1 10^3/uL (4.5-11.0)
[2018-05-08 03:43] LABS: BLOOD UREA NITROGEN 75 mg/dL (7-21); CALCIUM 8.8 mg/dL (8.4-10.5); GFR NON-AFRICAN AMERICAN > 60
[2018-05-08 03:54] LABS: TROPONIN I 0.08 ng/mL
[2018-05-08] MEDS: Meropenem IV 1 gm in NS 1 GM/50 ML BAG IVPB SCH ×2 (05:15→14:26)
[2018-05-08] MEDS: Acetylcysteine 20% Inhal Soln (4ml) IH SCH ×3 (07:53→19:56)
[2018-05-08] MEDS: Ipratropium 0.02% Inhal Soln (0.5 mg/2.5 ml) UD IH SCH ×3 (07:54→19:57)
[2018-05-08] MEDS: Budesonide 0.5 mg/2 ml Inhal Susp UD IH SCH ×2 (07:54→19:57)
--- NOTE | 2018-05-08 09:07 | CARD ---
APPROVED REPORT Date of service: 05/08/2018 EKG Measurement Heart [id number] <Conclusion> Atrial flutter with 2:[address] and T wave abnormality Abnormal ECG
[2018-05-08 10:43] LABS: ARTERIAL BLOOD GAS HEMOGLOBIN 8.7 g/dL (11.7-17.4); ARTERIAL BLOOD GAS O2 CAPACITY 12.6 mL/dl (16-24); ARTERIAL BLOOD GAS O2 CONTENT 12.6 ML/dl (15-23); ARTERIAL BLOOD GAS PCO2 43 mm/Hg (35-45); ARTERIAL BLOOD GAS PH 7.48 (7.35-7.45); ARTERIAL BLOOD GAS TCO2 33.3 mmol.L (22-28)
--- NOTE | 2018-05-08 11:25 | CP.PCM.APN ---
Subjective - Date & Time of Evaluation Date of Evaluation: 05/08/18 Time of Evaluation: 10:00 - Subjective Subjective: Pt seen and examined at bedside. He is lethargic but opens his eyes on verbal and tactile stimuli. In no acute respiratory distress. Objective - Vital Signs/Intake and Output Vital Signs (last 24 hours): Temp Pulse Resp BP Pulse Ox 98.1 F 121 H 19 111/59 L 96 05/08/18 09:01 05/08/18 09:01 05/08/18 11:00 05/08/18 09:01 05/08/18 09:01 Intake and Output: 05/08/18 05/08/18 06:59 18:59 Intake Total 0 Output Total 325 Balance -325 - Medications Medications: Current Medications Acetaminophen (Tylenol 650mg/20.3ml Solution Ud) 650 mg PO Q6H PRN PRN Reason: Pain, Mild (1-3) Last Admin: 05/06/18 16:11 Dose: 650 mg Acetaminophen (Tylenol 650mg/20.3ml Solution Ud) 650 mg PO Q6H PRN PRN Reason: fever Last Admin: 05/01/18 04:39 Dose: 650 mg Acetylcysteine (Acetylcysteine 20%) 4 ml IH TIDRESP [facility] Last Admin: 05/08/18 07:53 Dose: 4 ml Apixaban (Eliquis) 5 mg PEG BID [facility]; Protocol Last Admin: 05/07/18 18:01 Dose: 5 mg Atenolol (Tenormin) 25 mg PO DAILY [facility] Last Admin: 05/07/18 10:00 Dose: Not Given Budesonide (Pulmicort Respules) 0.5 mg IH TIDRESP [facility] Last Admin: 05/08/18 07:54 Dose: 0.5 mg Digoxin (Digoxin) 0.125 mg PO 1400 [facility] Last Admin: 05/07/18 18:07 Dose: 0.125 mg Famotidine (Pepcid) 40 mg PEG HS [facility] Last Admin: 05/07/18 22:29 Dose: 40 mg Ferrous Gluconate (Fergon) 324 mg PO TID [facility] Last Admin: 05/07/18 18:00 Dose: 324 mg Furosemide (Lasix) 20 mg PO DAILY [facility] Last Admin: 05/07/18 10:00 Dose: Not Given Meropenem (Merrem Iv 1 Gm Premix) 1 gm in 50 mls @ 100 mls/hr IVPB Q8 [facility]; Protocol Stop: 05/08/18 15:53 Last Admin: 05/08/18 05:15 Dose: 100 mls/hr Vancomycin HCl (Vancomycin 1gm) 1 gm in 250 mls @ 167 mls/hr IVPB 1000,2200 [facility]; Protocol Stop: 05/08/18 16:01 Last Admin: 05/07/18 22:30 Dose: 167 mls/hr Ipratropium [place] (Atrovent) 0.5 mg IH TIDRESP [facility] Last Admin: 05/08/18 07:54 Dose: 0.5 mg Levalbuterol HCl (Xopenex) 1.25 mg IH [id number] PRN PRN Reason: Shortness of Breath Last Admin: 05/07/18 20:10 Dose: 1.25 mg Levetiracetam (Keppra) 500 mg PEG Q12 [facility] Last Admin: 05/07/18 22:29 Dose: 500 mg Magnesium Oxide (Mag-Ox) 400 mg PEG BID [facility] Last Admin: 05/07/18 18:01 Dose: 400 mg Sodium Hypochlorite (Dakins Solution 0.25%) 0 ml TOP DAILY [facility] Last Admin: 05/07/18 12:00 Dose: 1 appl Verapamil HCl (Calan Tab) 80 mg PO TID [facility] Last Admin: 05/07/18 18:03 Dose: Not Given - Labs Labs: 05/08/18 03:20 05/08/18 03:20 PT 16.5 SECONDS (9.4-12.5) H 04/13/18 10:50 INR 1.42 04/13/18 10:50 APTT 28.7 Seconds (25.1-36.5) 04/13/18 10:50 - Constitutional Appears: No Acute Distress, Cachectic, Chronically Ill - Head Exam Head Exam: ATRAUMATIC - Respiratory Exam Respiratory Exam: Decreased Breath Sounds, NORMAL BREATHING PATTERN - Cardiovascular Exam Cardiovascular Exam: Tachycardia, +S1, +S2 - GI/Abdominal Exam Additional comments: +PEG - Rectal Exam Rectal Exam: Deferred - Skin Additional comments: multiple sacral and lower ext ulcers Assessment and Plan - Assessment and Plan (Free Text) Assessment: Pt is a 72 y.o. male with PMHx of HTN, COPD, afib, throat ca, dementia, CVA and liver cirrhosis who was brought in ED for evaluation of hallucinations. He was treated for SIRS 2/2 multiple sacral ulcers with pseudomonas. Now with new onset SIRS while treating sepsis 2/2 HCAP and UTI. Plan: C/W IV Abx per ID recs On high flow O2 in AM and BIPAP at HS per Pulm recs Repeat CXR ECHO - mild to moderate pulmonary HTN. No clear vegetation seen Palliative on board - d/w PMD and will contact daughter for possible hospice care ID, Pulm, Cardio, Surgery on consult Pt referred to LTACH Meds per JUL Will continue to follow
[2018-05-08] MEDS: Magnesium Oxide 400 mg Tab UD PEG SCH ×2 (11:42→17:55)
[2018-05-08] MEDS: levETIRAcetam 500 mg/5ml UD cups PEG SCH ×2 (11:43→21:57)
[2018-05-08] MEDS: Vancomycin 1gm in NS 250ml 1 GM/250 ML BAG IVPB SCH (11:43)
--- NOTE | 2018-05-08 11:48 | RAD ---
Date of service: 05/08/2018 HISTORY: congestion COMPARISON: May 07, 2018. FINDINGS: LUNGS: Near complete collapse of the left lung a new/acute finding compared to the most recent study. Shift of mediastinal structures to the upset lateral side, improved aeration of the right lung. PLEURA: No significant pleural effusion identified, no pneumothorax apparent. CARDIOVASCULAR: No atherosclerotic calcification present No significant interval change compared to the prior examination(s). OSSEOUS STRUCTURES: No significant abnormalities. VISUALIZED UPPER ABDOMEN: Normal. OTHER FINDINGS: None. IMPRESSION: Acute/abrupt opacification left lung. Mucous plugging/endobronchial etiology is most likely.
[2018-05-08] MEDS: Digoxin 125 mcg (0.125 mg) Tab PO SCH (14:23)
[2018-05-08 14:28] VITALS: PULSE 113
--- NOTE | 2018-05-08 15:26 | PN ---
DATE: 05/08/2018 PULMONARY PROGRESS NOTE REFERRING PHYSICIAN: Mariana Fernandez MD SUBJECTIVE: The patient is lying in bed, lethargic, high flow oxygen ongoing, remote telemetry ongoing. No hemoptysis, hematuria, hematosis, diarrhea, leg pain and leg swelling reported. PHYSICAL EXAMINATION: GENERAL: Lethargic. VITAL SIGNS: Blood pressure 111/59, pulse 121, temperature 98.1, oxygen saturation 96% on high flow oxygen. HEENT: Mucous membranes dry. Conjunctivae clear. NECK: Supple. No JVD. No carotid bruits. CHEST: Crackles bilateral basis and rhonchi bilaterally. Poor airflow. CARDIOVASCULAR: S1 and S2, tachycardic. ABDOMEN: Soft. No distention. No organomegaly. Gastrostomy tube in place. EXTREMITIES: No bilateral lower extremity edema. Multiple pressure ulcers to lower extremity. Bilateral lower extremity contractures. NEUROLOGIC: Sleepy, lethargic, nonverbal. Arousable to painful stimuli. MEDICATIONS: Reviewed. Tylenol 650 mg every 6 hours p.r.n. mild pain, Tylenol 650 mg every 6 hours p.r.n. for fever, Mucomyst 4 mL inhalation three times a day, Eliquis 5 mg twice a day, atenolol 25 mg daily, Pulmicort 0.5 mg inhalation three times a day, digoxin 0.125 mg daily, Pepcid 40 mg at bedtime, ferrous gluconate 324 mg three times a day, Lasix 20 mg daily, Atrovent 0.5 mg inhalation three times a day, Xopenex 1.25 mg inhalation every 6 hours p.r.n., Keppra 500 mg every 12 hours, magnesium oxide 400 mg twice a day, meropenem 1 g every 8 hours, Dakin's solution topically to affected areas, vancomycin 1 g twice a day, verapamil 80 mg three times a day. LABORATORY DATA: Reviewed. WBC 28.1, RBC 3.49, hemoglobin 8.7, hematocrit 29.5, platelets 425. Sodium 152, potassium 4.2, chloride 119, carbon dioxide 33, anion gap 4, BUN 75, creatinine 0.9. GFR greater than 60. Random glucose 126, calcium 8.8, troponin 0.08, digoxin 1.7. Electrocardiogram shows atrial flutter with two to one block, nonspecific ST and T-wave abnormality and abnormal ECG. IMPRESSION AND PLAN: Healthcare-associated pneumonia, urinary tract infection, multiple pressure decubitus ulcers, history of head and neck cancer, chronic lung disease, oropharyngeal dysphagia, has gastrostomy tube, history of stroke, psoriatic liver, diabetes, leukocytosis present. Pulmonary point of view, discussed with nursing staff to increase high flow oxygen to 50 L with fraction of inspired oxygen of 100%. Order given for planer operator / grader's evaluation. Order given to transfer the patient to intensive care unit. At this time, high risk for respiratory failure. Order given to repeat arterial blood gases in one hour after increase in oxygen. Discussed with nurse to order a portable chest x-ray. Continue inhaled bronchodilators. Continue antibiotic therapy. Overall, prognosis is poor. Aspiration precaution, pressure ulcer precaution, wound care followup. Case discussed with planer operator / grader. This patient was seen and examined with Dr. Cruz. Discussed assessment and plan as described above. Thank you for this consult. We will follow with you. Bryn Rosa APN Fatoumata Cruz MD MTDJaclyn
--- NOTE | 2018-05-08 16:30 | CP.PCM.CON ---
History of Present Illness - History of Present Illness History of Present Illness: MICU CONSULT NOTE HPI Patient is 72yo male with extensive PMHx including, throat CA, A-fib on Eliquis, HTN , COPD,cirrhosis, dementia, TIA, and CVA with right sided hemiparesis, contracture, admitted since 04/14/18, for PNA, severe sepsis, multiple ulcers/wounds. Pt has been steadily declining over last few months. ICU called for evaluation of worsening mental status. As per staff mental status has not changed in comparison to few days ago. Pt is non verbal, contracted, unable to provide history. Palliative care following PMHx as above PSHx as above Allergies NKDA Meds as per EMR Social Hx cannot obtain FHx NC Review of Systems - Review of Systems Review of Systems: as per HPI Past Patient History - Infectious Disease Hx of Infectious Diseases: None - Past Medical History & Family History Past Medical History?: Yes - Past Social History Smoking Status: Unknown If Ever Smoked - CARDIAC Hx Pacemaker: No - PULMONARY Hx Chronic Obstructive Pulmonary Disease (COPD): Yes - NEUROLOGICAL HX Cerebrovascular Accident: Yes - HEENT Hx HEENT Problems: No - RENAL Hx Chronic Kidney Disease: No - ENDOCRINE/METABOLIC Hx Endocrine Disorders: No - HEMATOLOGICAL/ONCOLOGICAL Hx Cancer: No - INTEGUMENTARY Other/Comment: multiple ble skin discolorations - MUSCULOSKELETAL/RHEUMATOLOGICAL Hx Musculoskeletal Disorders: Yes - GASTROINTESTINAL Hx Gastrointestinal Disorders: Yes (L INGUINAL HERNIA) Hx Liver Failure: Yes (cirrhosis) - GENITOURINARY/GYNECOLOGICAL Hx Incontinence: Yes - PSYCHIATRIC Hx Emotional Abuse: No Hx Physical Abuse: No Hx Substance Use: No - SURGICAL HISTORY Hx Mastectomy: No - ANESTHESIA Hx Anesthesia: Yes Hx Anesthesia Reactions: No Hx Malignant Hyperthermia: No Meds Allergies/Adverse Reactions: Allergies Allergy/AdvReac Type Severity Reaction Status Date / Time No Known Allergies Allergy Verified 04/01/18 02:35 - Medications Medications: Current Medications Acetaminophen (Tylenol 650mg/20.3ml Solution Ud) 650 mg PO Q6H PRN PRN Reason: Pain, Mild (1-3) Last Admin: 05/06/18 16:11 Dose: 650 mg Acetaminophen (Tylenol 650mg/20.3ml Solution Ud) 650 mg PO Q6H PRN PRN Reason: fever Last Admin: 05/01/18 04:39 Dose: 650 mg Acetylcysteine (Acetylcysteine 20%) 4 ml IH TIDRESP [facility] Last Admin: 05/08/18 14:05 Dose: 4 ml Apixaban (Eliquis) 5 mg PEG BID [facility]; Protocol Last Admin: 05/08/18 11:42 Dose: 5 mg Atenolol (Tenormin) 25 mg PO DAILY [facility] Last Admin: 05/08/18 11:43 Dose: 25 mg Budesonide (Pulmicort Respules) 0.5 mg IH TIDRESP [facility] Last Admin: 05/08/18 07:54 Dose: 0.5 mg Digoxin (Digoxin) 0.125 mg PO 1400 [facility] Last Admin: 05/08/18 14:23 Dose: 0.125 mg Famotidine (Pepcid) 40 mg PEG HS [facility] Last Admin: 05/07/18 22:29 Dose: 40 mg Ferrous Gluconate (Fergon) 324 mg PO TID [facility] Last Admin: 05/08/18 14:26 Dose: Not Given Furosemide (Lasix) 20 mg PO DAILY [facility] Last Admin: 05/08/18 11:42 Dose: Not Given Ipratropium [place] (Atrovent) 0.5 mg IH TIDRESP [facility] Last Admin: 05/08/18 14:05 Dose: 0.5 mg Levalbuterol HCl (Xopenex) 1.25 mg IH [id number] PRN PRN Reason: Shortness of Breath Last Admin: 05/07/18 20:10 Dose: 1.25 mg Levetiracetam (Keppra) 500 mg PEG Q12 [facility] Last Admin: 05/08/18 11:43 Dose: 500 mg Magnesium Oxide (Mag-Ox) 400 mg PEG BID [facility] Last Admin: 05/08/18 11:42 Dose: 400 mg Sodium Hypochlorite (Dakins Solution 0.25%) 0 ml TOP DAILY [facility] Last Admin: 05/07/18 12:00 Dose: 1 appl Verapamil HCl (Calan Tab) 80 mg PO TID [facility] Last Admin: 05/08/18 14:21 Dose: Not Given Physical Exam - Constitutional Appears: Toxic, In Acute Distress, Older Than Stated Age, Confused, Cachectic, Chronically Ill - Head Exam Head Exam: NORMAL INSPECTION - ENT Exam ENT Exam: Mucous Membranes Dry - Neck Exam Neck exam: Positive for: Full Rom - Respiratory Exam Respiratory Exam: Decreased Breath Sounds, Rhonchi, NORMAL BREATHING PATTERN - Cardiovascular Exam Cardiovascular Exam: Tachycardia, REGULAR RHYTHM, +S1, +S2 - GI/Abdominal Exam GI & Abdominal Exam: Normal Bowel Sounds, Soft Additional comments: +PEG - Extremities Exam Extremities exam: Positive for: normal inspection Results - Vital Signs Recent Vital Signs: Last Vital Signs Temp 98.1 F 05/08/18 09:01 Pulse 113 H 05/08/18 14:21 Resp 23 05/08/18 14:00 BP 82/38 L 05/08/18 14:21 Pulse Ox 88 L 05/08/18 14:00 - Labs Result Diagrams: 05/08/18 03:20 05/08/18 03:20 Labs: Laboratory Results - last 24 hr 05/08/18 05/08/18 05/08/18 03:20 03:20 03:20 WBC 28.1 H* D RBC 3.49 L Hgb 8.7 L Hct 29.5 L MCV 84.5 MCH 24.9 L MCHC 29.5 L RDW 18.7 H Plt Count 425 MPV 8.8 pCO2 pO2 HCO3 ABG pH ABG Total CO2 ABG O2 Saturation ABG O2 Content ABG Base Excess ABG Hemoglobin ABG Carboxyhemoglobin POC ABG HHb (Measured) ABG Methemoglobin ABG O2 Capacity Hgb O2 Saturation FiO2 Sodium 152 H Potassium 4.2 Chloride 119 H Carbon Dioxide 33 Anion Gap 4 L BUN 75 H Creatinine 0.9 Est GFR ( Amer) > 60 Est GFR (Non-Af Amer) > 60 Random Glucose 126 H Calcium 8.8 Troponin I 0.08 D Digoxin 1.7 05/08/18 05/08/18 08:54 10:35 WBC RBC Hgb Hct MCV MCH MCHC RDW Plt Count MPV pCO2 43 pO2 263.0 H HCO3 32.0 H ABG pH 7.48 H ABG Total CO2 33.3 H ABG O2 Saturation 100.0 H ABG O2 Content 12.6 L ABG Base Excess 7.7 H ABG Hemoglobin 8.7 L ABG Carboxyhemoglobin 2.0 H POC ABG HHb (Measured) 0 ABG Methemoglobin 0.8 ABG O2 Capacity 12.6 L Hgb O2 Saturation 97.3 FiO2 100.0 Sodium Potassium Chloride Carbon Dioxide Anion Gap BUN Creatinine Est GFR ( Amer) Est GFR (Non-Af Amer) Random Glucose Calcium Troponin I 0.07 Digoxin - Imaging and Cardiology Chest x-ray Status: Image reviewed by me, Report reviewed by me Assessment & Plan - Assessment and Plan (Free Text) Assessment: 72yo male with PMHx throat CA, A-fib on Eliquis, HTN , COPD,cirrhosis, dementia, TIA, and CVA with right sided hemiparesis, contracture with severe sepsis lung collapse likely 2/2 mucus plugging, worsening mental status - currently afebrile, BP stable, comfortable, on high flow 50% ,50LPM, - chronically ill, cachectic, +PEG - Pallaitive care following, Pulm following - labs, imaging, chart reviewed; CXR with L lung collapse, likely 2/2 mucus plugging Recommend: - cont with supp o2, goal sat 90%, wena off high flow, aggressive chest PT, IV steroids, follow up pulm, may need bronchoscopy - Broad spectrum abx as per ID, follow up cultures - IVF - Follow up surgery - Eliquis - FS control - monitor LFTs - pallaitive care follow up, extremely poor prognosis - GI ppx - DVT ppx - Monitor in MICU critical care time 35 minutes
--- NOTE | 2018-05-08 17:17 | CP.PCM.PN ---
Subjective - Date & Time of Evaluation Date of Evaluation: 05/08/18 Time of Evaluation: 08:25 - Subjective Subjective: Patient is lethargic, no fevers, but in mild distress. Objective - Vital Signs/Intake and Output Vital Signs (last 24 hours): Temp Pulse Resp BP Pulse Ox 98.3 F 110 H 20 96/50 L 94 L 05/07/18 14:41 05/07/18 14:41 05/07/18 16:11 05/07/18 18:03 05/07/18 14:41 - Medications Medications: Current Medications Acetaminophen (Tylenol 650mg/20.3ml Solution Ud) 650 mg PO Q6H PRN PRN Reason: Pain, Mild (1-3) Last Admin: 05/06/18 16:11 Dose: 650 mg Acetaminophen (Tylenol 650mg/20.3ml Solution Ud) 650 mg PO Q6H PRN PRN Reason: fever Last Admin: 05/01/18 04:39 Dose: 650 mg Acetylcysteine (Acetylcysteine 20%) 4 ml IH TIDRESP [facility] Last Admin: 05/07/18 13:30 Dose: 4 ml Apixaban (Eliquis) 5 mg PEG BID [facility]; Protocol Last Admin: 05/07/18 18:01 Dose: 5 mg Atenolol (Tenormin) 25 mg PO DAILY [facility] Last Admin: 05/07/18 10:00 Dose: Not Given Budesonide (Pulmicort Respules) 0.5 mg IH TIDRESP [facility] Last Admin: 05/07/18 07:34 Dose: 0.5 mg Digoxin (Digoxin) 0.125 mg PO 1400 [facility] Last Admin: 05/07/18 18:07 Dose: 0.125 mg Famotidine (Pepcid) 40 mg PEG HS [facility] Last Admin: 05/06/18 21:36 Dose: 40 mg Ferrous Gluconate (Fergon) 324 mg PO TID [facility] Last Admin: 05/07/18 18:00 Dose: 324 mg Furosemide (Lasix) 20 mg PO DAILY [facility] Last Admin: 05/07/18 10:00 Dose: Not Given Meropenem (Merrem Iv 1 Gm Premix) 1 gm in 50 mls @ 100 mls/hr IVPB Q8 [facility]; Protocol Stop: 05/08/18 15:53 Last Admin: 12/10/18 18:00 Dose: 100 mls/hr Vancomycin HCl (Vancomycin 1gm) 1 gm in 250 mls @ 167 mls/hr IVPB 1000,2200 [facility]; Protocol Stop: 05/08/18 16:01 Last Admin: 05/07/18 13:30 Dose: 167 mls/hr Ipratropium [place] (Atrovent) 0.5 mg IH TIDRESP [facility] Last Admin: 05/07/18 13:31 Dose: 0.5 mg Levalbuterol HCl (Xopenex) 1.25 mg IH [id number] PRN PRN Reason: Shortness of Breath Last Admin: 05/07/18 13:31 Dose: 1.25 mg Levetiracetam (Keppra) 500 mg PEG Q12 [facility] Last Admin: 05/07/18 18:01 Dose: 500 mg Magnesium Oxide (Mag-Ox) 400 mg PEG BID [facility] Last Admin: 05/07/18 18:01 Dose: 400 mg Sodium Hypochlorite (Dakins Solution 0.25%) 0 ml TOP DAILY [facility] Last Admin: 05/07/18 12:00 Dose: 1 appl Verapamil HCl (Calan Tab) 80 mg PO TID [facility] Last Admin: 05/07/18 18:03 Dose: Not Given - Labs Labs: 05/07/18 06:30 05/07/18 06:30 PT 16.5 SECONDS (9.4-12.5) H 04/13/18 10:50 INR 1.42 04/13/18 10:50 APTT 28.7 Seconds (25.1-36.5) 04/13/18 10:50 - Constitutional Appears: Cachectic, Chronically Ill - Head Exam Head Exam: NORMAL INSPECTION - Respiratory Exam Respiratory Exam: Decreased Breath Sounds - Cardiovascular Exam Cardiovascular Exam: +S1, +S2 - GI/Abdominal Exam GI & Abdominal Exam: Soft. absent: Tenderness Assessment and Plan - Assessment and Plan (Free Text) Plan: Assessment new onset systemic inflammatory response syndrome while treating sepsis due to HCAP and UTI with Pseudomonas, now with left lung collapse probablhy from mucus plugging due to multiple sacral ulcers, grew Pseudomonas history of sepsis due to right lower lobe HCAP with ESBL E. coli left hip wound infection HTN COPD atrial fibrillation throat cancer dementia history of CVA of left frontal lobe liver cirrhosis Plan continue Vancomycin and Merrem day 10 overall prognosis is poor patient now in the ICU for closer observation and critical management
[2018-05-08] MEDS: Levalbuterol 1.25 MG/3 ML Inhal Soln UD IH PRN (19:30)
[2018-05-08] MEDS: Acetaminophen 650mg/20.3ml solution UD PO PRN (20:30)
[2018-05-08 22:42] LABS: PH,URINE 5.5 (4.7-8.0); URINE BILIRUBIN NEGATIVE (NEGATIVE); URINE BLOOD LARGE (NEGATIVE); URINE GLUCOSE (UA) NEGATIVE (NEGATIVE); URINE LEUKOCYTE ESTERASE LARGE Leu/uL (NEGATIVE); URINE PROTEIN 100 mg/dL (<30 mg/dL); URINE UROBILINOGEN 0.2 E.U./dL (<1 E.U./dL)
[2018-05-08 22:43] LABS: URINE APPEARANCE TURBID (CLEAR); URINE COLOR YELLOW (YELLOW)
[2018-05-08 22:46] LABS: URINE BACTERIA FEW (NEG); URINE WBC TNTC /hpf (0-6)
--- NOTE | 2018-05-09 00:43 | PN ---
DATE: 05/08/2018 SUBJECTIVE: The patient is a 72 years old male. The patient was seen and examined at the bedside on 05/08/2018, looking lethargic, is transferred to the unit. Open the eyes on verbal and tactile stimuli, but he is not able to give a review of system, in no acute respiratory distress, lying down in a contracted form. PHYSICAL EXAMINATION: VITAL SIGNS: Temperature 98.1, pulse 121, respiratory rate 19, blood pressure 111/59. HEENT: Head: Normocephalic, atraumatic. Eyes: PERRLA. Nose patent. Mucous membranes moist. NECK: Supple. No carotid bruit. No JVD or thyromegaly. CHEST: Bilaterally symmetrical. HEART: S1 and S2 positive. LUNGS: Clear to auscultation. ABDOMEN: Soft. Bowel sounds present. No organomegaly. EXTREMITIES: Multiple decubitus ulcers. Legs are contracted. NEUROLOGIC: The patient is very lethargic. MEDICATIONS: Tylenol, acetylcysteine, Eliquis, atenolol, Pulmicort, digoxin, Pepcid, Lasix, Merrem, vancomycin, Atrovent, Xopenex, Keppra, magnesium oxide, Dakin's solution and Calan. LABORATORY DATA: White blood cell is 28.1, hemoglobin 8.7, hematocrit 29.5, platelets 425. Sodium 152, potassium 4.2, BUN 75, creatinine 0.9, glucose 126. ASSESSMENT AND PLAN: Mr. Geo Ewing is a 72-year-old male with leukocytosis, anemia, hypernatremia, hyperchloremia, looks like dehydrated, hyperglycemia with history of hypertension, chronic obstructive pulmonary disease, atrial fibrillation, throat cancer, dementia, severe liver cirrhosis, has history of evaluation, history of treatment of the systemic inflammatory response, multiple sacral decubitus ulcer infected with pseudomonas, now new-onset systemic inflammatory response syndrome while treating sepsis, healthcare-associated pneumonia and urinary tract infection. Continue IV antibiotics. Infectious Disease is on the case. The patient is on high flow oxygen and BiPAP. Transfer Professor is on the case. Repeat chest x-ray. Echocardiogram to monitor his pulmonary hypertension. No clear vegetations are seen. Dr. Florina Cleveland spoke to the patient daughter Eladia, but Eladia still wants patient full code. I called Eladia by myself, but was not able to reach, I will try again. We will transfer the patient to Long-Term Acute Care if Eladia will not be of make decision. Continue medications, lab, and we will follow up. Mariana Fernandez MD
[2018-05-09 06:51] LABS: BASO # 0.02 K/mm3 (0.0-2.0); BASO % 0.1 % (0.0-3.0); EOS # 0.2 (0.0-0.7); EOS % 0.5 % (1.5-5.0); GRAN # 27.82 (1.4-6.5); GRAN % 92.1 % (50.0-68.0); HEMOGLOBIN 9.3 g/dL (14.0-18.0); LYMPH # 1.6 (1.2-3.4); LYMPH % 5.4 % (22.0-35.0); MEAN CELL VOLUME 86.1 fl (80.0-105.0); MEAN CORPUSCULAR HEMOGLOBIN 25.4 pg (25.0-35.0); MEAN CORPUSCULAR HGB CONC 29.5 g/dl (31.0-37.0); MEAN PLATELET VOLUME 9.5 fl (7.0-11.0); MONO # 0.6 (0.1-0.6); MONO % 1.9 % (1.0-6.0); RBC 3.66 10^6/uL (3.5-6.1); RED CELL DISTRIBUTION WIDTH 18.8 % (11.5-14.5)
[2018-05-09 06:58] LABS: ALB/GLOB RATIO 0.7 (1.1-1.8); ALBUMIN 2.7 g/dL (3.0-4.8); ALT/SGPT 42 U/L (7-56); AST/SGOT 53 U/L (17-59); BLOOD UREA NITROGEN 76 mg/dL (7-21); CALCIUM 9.1 mg/dL (8.4-10.5); GFR NON-AFRICAN AMERICAN > 60
[2018-05-09 07:16] LABS: WHITE BLOOD COUNT 30.2 10^3/uL (4.5-11.0)
[2018-05-09] MEDS: Acetylcysteine 20% Inhal Soln (4ml) IH SCH (07:43)
[2018-05-09] MEDS: Ipratropium 0.02% Inhal Soln (0.5 mg/2.5 ml) UD IH SCH (07:43)
[2018-05-09] MEDS: Budesonide 0.5 mg/2 ml Inhal Susp UD IH SCH (07:44)
--- NOTE | 2018-05-09 08:04 | CP.CCUPN ---
<Jayson Becerril L - Last Filed: 05/09/18 12:49> CCU Subjective - Physician Review Subjective (Free Text): Resident Progress Note for CCU Patient examined at bedside. No acute events overnight. Patient is resting comfortably in bed in no acute distress. Patient is alert, however is a poor historian as he is nonverbal. Plan for discharge to LTAC today. Critical Care Time Spent (in minutes): 35 CCU Objective - Vital Signs / Intake & Output Vital Signs (Last 4 hours): Vital Signs Temp Pulse Resp BP Pulse Ox 05/09/18 07:49 97.1 F L 05/09/18 07:29 123 H 05/09/18 07:00 123 H 24 102/68 97 05/09/18 06:41 123 H 18 05/09/18 06:39 123 H 17 05/09/18 06:31 124 H 19 05/09/18 06:23 123 H 125 H 05/09/18 06:20 110 H 95 H 05/09/18 06:19 123 H 44 H 05/09/18 06:18 124 H 05/09/18 06:17 123 H 22 05/09/18 06:16 124 H 12 05/09/18 06:15 123 H 82 H 05/09/18 06:14 124 H 33 H 05/09/18 06:00 120 H 18 97/65 L 100 05/09/18 05:00 123 H 16 112/54 L 100 Intake and Output (Last 8hrs): Intake & Output 05/08/18 05/09/18 05/09/18 22:59 06:59 14:59 Intake Total 350 Output Total 550 400 Balance -200 -400 Intake: IV 50 Left Forearm 50 Tube Feeding 200 Other 100 Output: Urine 550 400 Urethral ([place]) 550 400 - Physical Exam Head: Positive for: Atraumatic, Normocephalic Pupils: Positive for: PERRL Extroacular Muscles: Positive for: EOMI Conjunctiva: Positive for: Normal Ears: Positive for: Normal Mouth: Positive for: Moist Mucous Membranes Neck: Positive for: Normal Range of Motion Respiratory/Chest: Positive for: Clear to Auscultation, Good Air Exchange. Nega tive for: Respiratory Distress, Accessory Muscle Use, Wheezes, Decreased Breath Sounds, Rales, Rhonchi Cardiovascular: Positive for: Regular Rate and Rhythm, Normal S1, S2, Peripheal Pulses Present. Negative for: Murmurs Abdomen: Positive for: Normal Bowel Sounds, Feeding Tubes (in place). Negative for: Tenderness, Distention, Peritoneal Signs, Rebound, Guarding Back: Negative for: Midline Tenderness, Paraspinal Tenderness Upper Extremity: Positive for: NORMAL PULSES, Neurovascularly Intact, Capillary Refill < 2s, Other (contractures per baseline; decubitus ulcers). Negative for: Cyanosis, Edema, Tenderness, Swelling, Erythema, Temperature Abnormalties Lower Extremity: Positive for: Normal Inspection, NORMAL PULSES, Neurovascularly Intact, Capillary Refill < 2 s, Other (contractures per baseline; decubitus ulcers). Negative for: Edema, Tenderness, Swelling, Erythema, Temperature Abnormalties Neurological: Positive for: GCS=15 Skin: Positive for: Warm, Dry, Other (Decubitus ulcer on right shoulder, right and left hip, sacrum ). Negative for: Rashes, Diaphoretic, Erythematous, Induration, Hot, Abscess Lymphatic: Negative for: Cervical Adenopathy Psychiatric: Positive for: Alert - Medications Active Medications: Active Medications Generic Name Dose Route Start Last Admin Trade Name Freq PRN Reason Stop Dose Admin Acetaminophen 650 mg 04/30/18 21:28 05/06/18 16:11 Tylenol 650mg/20.3ml Solution Ud PO 650 mg Q6H PRN Administration Pain, Mild (1-3) Acetaminophen 650 mg 04/30/18 21:38 05/08/18 20:30 Tylenol 650mg/20.3ml Solution Ud PO 650 mg Q6H PRN Administration fever Acetylcysteine 4 ml 05/05/18 12:29 05/09/18 07:43 Acetylcysteine 20% IH 4 ml TIDRESP HEIDE Administration Apixaban 5 mg 04/14/18 10:00 05/08/18 17:56 Eliquis PEG 5 mg BID HEIDE Administration Protocol Atenolol 25 mg 05/06/18 13:15 05/08/18 11:43 Tenormin PO 25 mg DAILY HEIDE Administration Budesonide 0.5 mg 05/05/18 12:30 05/09/18 07:44 Pulmicort Respules IH 0.5 mg TIDRESP HEIDE Administration Digoxin 0.125 mg 05/07/18 14:00 05/08/18 14:23 Digoxin PO 0.125 mg 1400 HEIDE Administration Famotidine 40 mg 04/14/18 22:00 05/08/18 21:57 Pepcid PEG 40 mg HS HEIDE Administration Ferrous Gluconate 324 mg 04/16/18 14:00 05/08/18 17:53 Fergon PO Not Given TID HEIDE Furosemide 20 mg 05/07/18 10:00 05/08/18 11:42 Lasix PO Not Given DAILY HEIDE Ipratropium [place] 0.5 mg 05/02/18 14:00 05/09/18 07:43 Atrovent IH 0.5 mg TIDRESP HEIDE Administration Levalbuterol HCl 1.25 mg 05/02/18 12:08 05/08/18 19:30 Xopenex IH 1.25 mg [id number] PRN Administration Shortness of Breath Levetiracetam 500 mg 04/14/18 10:00 05/08/18 21:57 Keppra PEG 500 mg Q12 HEIDE Administration Magnesium Oxide 400 mg 04/14/18 10:00 05/08/18 17:55 Mag-Ox PEG 400 mg BID HEIDE Administration Sodium Hypochlorite 0 ml 05/01/18 10:45 05/07/18 12:00 Dakins Solution 0.25% TOP 1 appl DAILY EHIDE Administration Verapamil HCl 80 mg 05/07/18 10:00 05/08/18 17:56 Calan Tab PO Not Given TID HEIDE - Patient Studies Lab Studies: Microbiology Studies 05/06/18 11:45 Blood Culture - Preliminary Blood NO GROWTH AFTER 48 HOURS 05/06/18 12:15 Blood Culture - Preliminary Blood NO GROWTH AFTER 48 HOURS Lab Studies 05/09/18 05/09/18 05/08/18 Range/Units 05:20 05:20 22:34 WBC 30.2 H* (4.5-11.0) 10^3/uL RBC 3.66 (3.5-6.1) 10^6/uL Hgb 9.3 L (14.0-18.0) g/dL Hct 31.5 L (42.0-52.0) % MCV 86.1 (80.0-105.0) fl MCH 25.4 (25.0-35.0) pg MCHC 29.5 L (31.0-37.0) g/dl RDW 18.8 H (11.5-14.5) % Plt Count 462 H (120.0-450.0) 10^3/uL MPV 9.5 (7.0-11.0) fl Gran % 92.1 H (50.0-68.0) % Lymph % (Auto) 5.4 L (22.0-35.0) % [place] % (Auto) 1.9 (1.0-6.0) % Eos % (Auto) 0.5 L (1.5-5.0) % Baso % (Auto) 0.1 (0.0-3.0) % Gran # 27.82 H (1.4-6.5) Lymph # (Auto) 1.6 (1.2-3.4) [place] # (Auto) 0.6 (0.1-0.6) Eos # (Auto) 0.2 (0.0-0.7) Baso # (Auto) 0.02 (0.0-2.0) K/mm3 pCO2 (35-45) mm/Hg pO2 (80-100) mm/Hg HCO3 (21-28) mmol/L ABG pH (7.35-7.45) ABG Total CO2 (22-28) mmol.L ABG O2 Saturation (95-98) % ABG O2 Content (15-23) ML/dl ABG Base Excess (-2.0-3.0) mmol/L ABG Hemoglobin (11.7-17.4) g/dL ABG Carboxyhemoglobin (0.5-1.5) % POC ABG HHb (Measured) (0-5) % ABG Methemoglobin (0.0-3.0) % ABG O2 Capacity (16-24) mL/dl Hgb O2 Saturation (95.0-98.0) % FiO2 % Sodium 154 H (132-148) mmol/L Potassium 4.2 (3.6-5.0) mmol/L Chloride 118 H (98-107) mmol/L Carbon Dioxide 34 H (21-33) mmol/L Anion Gap 6 L (10-20) BUN 76 H (7-21) mg/dL Creatinine 0.9 (0.8-1.5) mg/dl Est GFR ( Amer) > 60 Est GFR (Non-Af Amer) > 60 Random Glucose 104 (70-110) mg/dL Calcium 9.1 (8.4-10.5) mg/dL Phosphorus 3.4 (2.5-4.5) mg/dL Magnesium 2.9 H (1.7-2.2) mg/dL Total Bilirubin 0.4 (0.2-1.3) mg/dL AST 53 (17-59) U/L ALT 42 (7-56) U/L Alkaline Phosphatase 125 (38-126) U/L Troponin I ng/mL Total Protein 6.5 (5.8-8.3) g/dL Albumin 2.7 L (3.0-4.8) g/dL Globulin 3.9 gm/dL Albumin/Globulin Ratio 0.7 L (1.1-1.8) Urine Color Yellow (YELLOW) Urine Appearance Turbid (CLEAR) Urine pH 5.5 (4.7-8.0) Ur Specific [place] 1.025 (1.005-1.035) Urine Protein 100 H (<30 mg/dL) mg/dL Urine Glucose (UA) Negative (NEGATIVE) mg/dL Urine Ketones Negative (NEGATIVE) mg/dL Urine Blood Large H (NEGATIVE) Urine Nitrate Negative (NEGATIVE) Urine Bilirubin Negative (NEGATIVE) Urine Urobilinogen 0.2 (<1 E.U./dL) E.U./dL Ur Leukocyte Esterase Large H (NEGATIVE) Nia/uL Urine RBC 2 - 5 (0-2) /hpf Urine WBC Tntc (0-6) /hpf Urine Bacteria Few (NEG) 05/08/18 05/08/18 Range/Units 10:35 08:54 WBC (4.5-11.0) 10^3/uL RBC (3.5-6.1) 10^6/uL Hgb (14.0-18.0) g/dL Hct (42.0-52.0) % MCV (80.0-105.0) fl MCH (25.0-35.0) pg MCHC (31.0-37.0) g/dl RDW (11.5-14.5) % Plt Count (120.0-450.0) 10^3/uL MPV (7.0-11.0) fl Gran % (50.0-68.0) % Lymph % (Auto) (22.0-35.0) % [place] % (Auto) (1.0-6.0) % Eos % (Auto) (1.5-5.0) % Baso % (Auto) (0.0-3.0) % Gran # (1.4-6.5) Lymph # (Auto) (1.2-3.4) [place] # (Auto) (0.1-0.6) Eos # (Auto) (0.0-0.7) Baso # (Auto) (0.0-2.0) K/mm3 pCO2 43 (35-45) mm/Hg pO2 263.0 H (80-100) mm/Hg HCO3 32.0 H (21-28) mmol/L ABG pH 7.48 H (7.35-7.45) ABG Total CO2 33.3 H (22-28) mmol.L ABG O2 Saturation 100.0 H (95-98) % ABG O2 Content 12.6 L (15-23) ML/dl ABG Base Excess 7.7 H (-2.0-3.0) mmol/L ABG Hemoglobin 8.7 L (11.7-17.4) g/dL ABG Carboxyhemoglobin 2.0 H (0.5-1.5) % POC ABG HHb (Measured) 0 (0-5) % ABG Methemoglobin 0.8 (0.0-3.0) % ABG O2 Capacity 12.6 L (16-24) mL/dl Hgb O2 Saturation 97.3 (95.0-98.0) % FiO2 100.0 % Sodium (132-148) mmol/L Potassium (3.6-5.0) mmol/L Chloride (98-107) mmol/L Carbon Dioxide (21-33) mmol/L Anion Gap (10-20) BUN (7-21) mg/dL Creatinine (0.8-1.5) mg/dl Est GFR ( Amer) Est GFR (Non-Af Amer) Random Glucose (70-110) mg/dL Calcium (8.4-10.5) mg/dL Phosphorus (2.5-4.5) mg/dL Magnesium (1.7-2.2) mg/dL Total Bilirubin (0.2-1.3) mg/dL AST (17-59) U/L ALT (7-56) U/L Alkaline Phosphatase (38-126) U/L Troponin I 0.07 ng/mL Total Protein (5.8-8.3) g/dL Albumin (3.0-4.8) g/dL Globulin gm/dL Albumin/Globulin Ratio (1.1-1.8) Urine Color (YELLOW) Urine Appearance (CLEAR) Urine pH (4.7-8.0) Ur Specific [place] (1.005-1.035) Urine Protein (<30 mg/dL) mg/dL Urine Glucose (UA) (NEGATIVE) mg/dL Urine Ketones (NEGATIVE) mg/dL Urine Blood (NEGATIVE) Urine Nitrate (NEGATIVE) Urine Bilirubin (NEGATIVE) Urine Urobilinogen (<1 E.U./dL) E.U./dL Ur Leukocyte Esterase (NEGATIVE) Nia/uL Urine RBC (0-2) /hpf Urine WBC (0-6) /hpf Urine Bacteria (NEG) Laboratory Results - last 24 hr 05/08/18 05/08/18 05/08/18 08:54 10:35 22:34 WBC RBC Hgb Hct MCV MCH MCHC RDW Plt Count MPV Gran % Lymph % (Auto) [place] % (Auto) Eos % (Auto) Baso % (Auto) Gran # Lymph # (Auto) [place] # (Auto) Eos # (Auto) Baso # (Auto) pCO2 43 pO2 263.0 H HCO3 32.0 H ABG pH 7.48 H ABG Total CO2 33.3 H ABG O2 Saturation 100.0 H ABG O2 Content 12.6 L ABG Base Excess 7.7 H ABG Hemoglobin 8.7 L ABG Carboxyhemoglobin 2.0 H POC ABG HHb (Measured) 0 ABG Methemoglobin 0.8 ABG O2 Capacity 12.6 L Hgb O2 Saturation 97.3 FiO2 100.0 Sodium Potassium Chloride Carbon Dioxide Anion Gap BUN Creatinine Est GFR ( Amer) Est GFR (Non-Af Amer) Random Glucose Calcium Phosphorus Magnesium Total Bilirubin AST ALT Alkaline Phosphatase Troponin I 0.07 Total Protein Albumin Globulin Albumin/Globulin Ratio Urine Color Yellow Urine Appearance Turbid Urine pH 5.5 Ur Specific [place] 1.025 Urine Protein 100 H Urine Glucose (UA) Negative Urine Ketones Negative Urine Blood Large H Urine Nitrate Negative Urine Bilirubin Negative Urine Urobilinogen 0.2 Ur Leukocyte Esterase Large H Urine RBC 2 - 5 Urine WBC Tntc Urine Bacteria Few 05/09/18 05/09/18 05:20 05:20 WBC 30.2 H* RBC 3.66 Hgb 9.3 L Hct 31.5 L MCV 86.1 MCH 25.4 MCHC 29.5 L RDW 18.8 H Plt Count 462 H MPV 9.5 Gran % 92.1 H Lymph % (Auto) 5.4 L [place] % (Auto) 1.9 Eos % (Auto) 0.5 L Baso % (Auto) 0.1 Gran # 27.82 H Lymph # (Auto) 1.6 [place] # (Auto) 0.6 Eos # (Auto) 0.2 Baso # (Auto) 0.02 pCO2 pO2 HCO3 ABG pH ABG Total CO2 ABG O2 Saturation ABG O2 Content ABG Base Excess ABG Hemoglobin ABG Carboxyhemoglobin POC ABG HHb (Measured) ABG Methemoglobin ABG O2 Capacity Hgb O2 Saturation FiO2 Sodium 154 H Potassium 4.2 Chloride 118 H Carbon Dioxide 34 H Anion Gap 6 L BUN 76 H Creatinine 0.9 Est GFR ( Amer) > 60 Est GFR (Non-Af Amer) > 60 Random Glucose 104 Calcium 9.1 Phosphorus 3.4 Magnesium 2.9 H Total Bilirubin 0.4 AST 53 ALT 42 Alkaline Phosphatase 125 Troponin I Total Protein 6.5 Albumin 2.7 L Globulin 3.9 Albumin/Globulin Ratio 0.7 L Urine Color Urine Appearance Urine pH Ur Specific [place] Urine Protein Urine Glucose (UA) Urine Ketones Urine Blood Urine Nitrate Urine Bilirubin Urine Urobilinogen Ur Leukocyte Esterase Urine RBC Urine WBC Urine Bacteria Fingerstick Blood Sugar Results: 110 Review of Systems - Review of Systems Systems not reviewed;Unavailable: Other (nonverbal) Critical Care Progress Note - Prophylaxis GI Prophylaxis GI: Pepsid - Prophylaxis DVT Prophylaxis DVT: SCDs Assessment/Plan - Assessment and Plan (Free Text) Assessment: Patient is a 72 year old male with past medical history of afib on eliquis, HTN, COPD, throat cancer, CVA with right sided hemiparesis, cirrhosis admitted for workup and management of sepsis likely secondary to pneumonia and decubitus ulcers. Plan: Neuro - alert - maintain normothermia - Keppra 500 mg PEG Q12 Cardio - hemodynamically stable - Eliquis 5 mg PEG BID - atenolol 25 mg PO daily - digoxin 0.125 mg PO daily - verapamil 80 mg PO TID - maintain MAP>65 mm Hg Pulm - 05/08 CXR showed opacification left lung, likely due to mucous plugging - CXR this AM shows re-expansion of left lung, pulmonary venous congestion - currently on high flow 50 LPM - mucomyst, pulmicort, atrovent, xopenex - Eliquis 5 mg PEG BID - Digoxin 0.125 mg daily - Verapamil 80 mg PO TID - Lasix 20 mg PO daily - maintain SaO2>92% GI - tube feeds - Pepcid 40 mg PEG HS Renal - pt has chronic patton Heme - ferrous gluconate 324 mg PO TID Endo - maintain euglycemia ID - ID consulted. Recs appreciated - positive leukocytosis, procal elevated - flu negative - 04/29 UCx and 04/19 wound culture grew pseudomonas - 05/04 sputum culture grew stenotrophomonas maltophila, yeast - 05/06 BCx neg x2 - Vancomycin 1 gm IV Q12 - Merrem 1 gm IV Q8 - wound care Dispo: Labs and imaging reviewed. Patient optimized for transfer to LTAC. Case discussed with attending Dr. José Manuel Becerril PGY-1 - Date & Time Date: 05/09/18 Time: 09:39 <Rodriguez Georges - Last Filed: 05/09/18 16:56> CCU Objective - Vital Signs / Intake & Output Vital Signs (Last 4 hours): Vital Signs Pulse Resp BP Pulse Ox 05/09/18 14:08 16 97 05/09/18 14:00 107/61 94 L 05/09/18 13:00 126 H 13 120/100 H 100 Intake and Output (Last 8hrs): Intake & Output 05/09/18 05/09/18 05/09/18 06:59 14:59 22:59 Intake Total 1755 Output Total 400 300 Balance -400 1455 Intake: IV 300 IVPB 300 Oral 1035 Tube Feeding 420 Output: Urine 400 300 Urethral ([place]) 400 300 - Patient Studies Lab Studies: Microbiology Studies 05/06/18 11:45 Blood Culture - Preliminary Blood NO GROWTH AFTER 3 DAYS 05/06/18 12:15 Blood Culture - Preliminary Blood NO GROWTH AFTER 3 DAYS Lab Studies 05/09/18 05/09/18 05/08/18 Range/Units 05:20 05:20 22:34 WBC 30.2 H* (4.5-11.0) 10^3/uL RBC 3.66 (3.5-6.1) 10^6/uL Hgb 9.3 L (14.0-18.0) g/dL Hct 31.5 L (42.0-52.0) % MCV 86.1 (80.0-105.0) fl MCH 25.4 (25.0-35.0) pg MCHC 29.5 L (31.0-37.0) g/dl RDW 18.8 H (11.5-14.5) % Plt Count 462 H (120.0-450.0) 10^3/uL MPV 9.5 (7.0-11.0) fl Gran % 92.1 H (50.0-68.0) % Lymph % (Auto) 5.4 L (22.0-35.0) % [place] % (Auto) 1.9 (1.0-6.0) % Eos % (Auto) 0.5 L (1.5-5.0) % Baso % (Auto) 0.1 (0.0-3.0) % Gran # 27.82 H (1.4-6.5) Lymph # (Auto) 1.6 (1.2-3.4) [place] # (Auto) 0.6 (0.1-0.6) Eos # (Auto) 0.2 (0.0-0.7) Baso # (Auto) 0.02 (0.0-2.0) K/mm3 Sodium 154 H (132-148) mmol/L Potassium 4.2 (3.6-5.0) mmol/L Chloride 118 H (98-107) mmol/L Carbon Dioxide 34 H (21-33) mmol/L Anion Gap 6 L (10-20) BUN 76 H (7-21) mg/dL Creatinine 0.9 (0.8-1.5) mg/dl Est GFR ( Amer) > 60 Est GFR (Non-Af Amer) > 60 Random Glucose 104 (70-110) mg/dL Calcium 9.1 (8.4-10.5) mg/dL Phosphorus 3.4 (2.5-4.5) mg/dL Magnesium 2.9 H (1.7-2.2) mg/dL Total Bilirubin 0.4 (0.2-1.3) mg/dL AST 53 (17-59) U/L ALT 42 (7-56) U/L Alkaline Phosphatase 125 (38-126) U/L Total Protein 6.5 (5.8-8.3) g/dL Albumin 2.7 L (3.0-4.8) g/dL Globulin 3.9 gm/dL Albumin/Globulin Ratio 0.7 L (1.1-1.8) Urine Color Yellow (YELLOW) Urine Appearance Turbid (CLEAR) Urine pH 5.5 (4.7-8.0) Ur Specific [place] 1.025 (1.005-1.035) Urine Protein 100 H (<30 mg/dL) mg/dL Urine Glucose (UA) Negative (NEGATIVE) mg/dL Urine Ketones Negative (NEGATIVE) mg/dL Urine Blood Large H (NEGATIVE) Urine Nitrate Negative (NEGATIVE) Urine Bilirubin Negative (NEGATIVE) Urine Urobilinogen 0.2 (<1 E.U./dL) E.U./dL Ur Leukocyte Esterase Large H (NEGATIVE) Nia/uL Urine RBC 2 - 5 (0-2) /hpf Urine WBC Tntc (0-6) /hpf Urine Bacteria Few (NEG) Laboratory Results - last 24 hr 05/08/18 05/09/18 05/09/18 22:34 05:20 05:20 WBC 30.2 H* RBC 3.66 Hgb 9.3 L Hct 31.5 L MCV 86.1 MCH 25.4 MCHC 29.5 L RDW 18.8 H Plt Count 462 H MPV 9.5 Gran % 92.1 H Lymph % (Auto) 5.4 L [place] % (Auto) 1.9 Eos % (Auto) 0.5 L Baso % (Auto) 0.1 Gran # 27.82 H Lymph # (Auto) 1.6 [place] # (Auto) 0.6 Eos # (Auto) 0.2 Baso # (Auto) 0.02 Sodium 154 H Potassium 4.2 Chloride 118 H Carbon Dioxide 34 H Anion Gap 6 L BUN 76 H Creatinine 0.9 Est GFR ( Amer) > 60 Est GFR (Non-Af Amer) > 60 Random Glucose 104 Calcium 9.1 Phosphorus 3.4 Magnesium 2.9 H Total Bilirubin 0.4 AST 53 ALT 42 Alkaline Phosphatase 125 Total Protein 6.5 Albumin 2.7 L Globulin 3.9 Albumin/Globulin Ratio 0.7 L Urine Color Yellow Urine Appearance Turbid Urine pH 5.5 Ur Specific [place] 1.025 Urine Protein 100 H Urine Glucose (UA) Negative Urine Ketones Negative Urine Blood Large H Urine Nitrate Negative Urine Bilirubin Negative Urine Urobilinogen 0.2 Ur Leukocyte Esterase Large H Urine RBC 2 - 5 Urine WBC Tntc Urine Bacteria Few Radiology Impressions: Radiology Impressions Chest X-Ray 05/09/18 08:00 IMPRESSION: No acute findings. Interval re-expansion of the left lung. Moderate pulmonary venous congestion and small right pleural effusion. Attending/Attestation - Attestation I have personally seen and examined this patient.: Yes I have fully participated in the care of the patient.: Yes I have reviewed all pertinent clinical information: Yes Notes (Text): 05/09/18 16:54 72 yo male with throat cancer, cachectic, admitted to icu for hypoxemic repsiratory failure. on high flow 50%, 50L/min. abx, nebs, ivf, 02 supplementation. patient was approved for LTAC prior to admission to ICU, stable for transfer to LTAC ccm time 40 min
[2018-05-09] MEDS ORDERED: Meropenem IV 1 gm in NS 1 GM/50 ML BAG IVPB SCH (08:45)
[2018-05-09] MEDS ORDERED: Vancomycin 1gm in NS 250ml 1 GM/250 ML BAG IVPB SCH (08:45)
--- NOTE | 2018-05-09 09:23 | RAD ---
Date of service: 05/09/2018 HISTORY: follow up COMPARISON: 05/08/2018 FINDINGS: LUNGS: The lungs are well inflated. There is interval complete re-expansion and aeration in the left lung. PLEURA: Small right pleural effusion. Interval. Pneumothorax CARDIOVASCULAR: Mild cardiomegaly and prominent central vasculature. There are aortic atherosclerotic calcification present there is stable position of left-sided unipolar permanent pacing device OSSEOUS STRUCTURES: Within normal limits for the patient's age. VISUALIZED UPPER ABDOMEN: Normal. OTHER FINDINGS: None. IMPRESSION: No acute findings. Interval re-expansion of the left lung. Moderate pulmonary venous congestion and small right pleural effusion.
[2018-05-09] MEDS: levETIRAcetam 500 mg/5ml UD cups PEG SCH (09:37)
[2018-05-09] MEDS: Magnesium Oxide 400 mg Tab UD PEG SCH (09:38)
[2018-05-09] MEDS: Dakin's Topical 0.25%-Half Strength (480 ml) TOP SCH (10:13)
--- NOTE | 2018-05-09 10:54 | PN ---
DATE: 05/09/2018 REFERRING PHYSICIAN: Dr. Mariana Fernandez REASON FOR CONSULTATION: Cardiac evaluation, chronic atrial fibrillation, elevated BNP, history of pacemaker, atrial fibrillation, and collapse of the left lung. Even noted yesterday, the patient had collapsed, moved to ICU, decreased oxygen saturation. The patient is in intensive care 129, bed 3. Very lethargic on waking up, denies any chest pain, shortness of breath, or any palpitation. Discussed with Dr. Georges, dry kiln worker. SUBJECTIVE: The patient denies any chest pain, shortness of breath, or any palpitation. OBJECTIVE: GENERAL: Not in apparent distress. VITAL SIGNS: On examination; temperature afebrile, heart rate 123, and blood pressure 102/68. HEENT: PERRLA. Extraocular muscles intact. NECK: Supple. No carotid bruit or thyromegaly. LUNGS: Clear to auscultation. HEART: S1 and S2 regular. ABDOMEN: Soft. EXTREMITIES: Clubbing and cyanosis negative. LABORATORY DATA: WBC 30.2, hemoglobin 9.7, hematocrit 31.5, and platelet count 462. Chemistry shows sodium 154, potassium 4.2, chloride 118, carbon dioxide 34, anion gap 6, BUN 76, and creatinine 0.9. Troponin remains flat 0.08. IMPRESSION: A 72-year-old male with past medical history of chronic atrial fibrillation status post pacemaker in August this year, history of transient ischemic attack, history of cardiovascular accident, history of chronic obstructive pulmonary disease, history of head and neck cancer status post surgery status post radiation, status post percutaneous endoscopic gastrostomy, difficulty in swallowing, status post percutaneous endoscopic gastrostomy. Yesterday, had more altered mental status, collapse of the left lung, moved to Intensive Care Unit. RECOMMENDATIONS: Possible thoracentesis, possible bronchoscopy, continue verapamil, continue dig, the tachycardia is secondary to underlying lung problem and collapse of the lung as well as possible poor oxygenation and tachycardiac. Overall, the patient's condition is critical. Prognosis is extremely guarded. Considered DNR/DNI. Continue NG feeding, continue increase free water because of the hyponatremia to 300 mL every 6 hours. Significant improvement on chest x-ray from yesterday. Thank you Dr. Fernandez for providing us the opportunity in taking care of the patient, Geo Kaylin. Fatoumata Huynh MD [facility] # [id number]
--- NOTE | 2018-05-09 11:29 | CP.PCM.PN ---
Subjective - Date & Time of Evaluation Date of Evaluation: 05/09/18 Time of Evaluation: 10:00 - Subjective Subjective: alert, offers no complaints Objective - Vital Signs/Intake and Output Vital Signs (last 24 hours): Temp Pulse Resp BP Pulse Ox 97.1 F L 122 H 20 106/66 96 05/09/18 07:49 05/09/18 10:25 05/09/18 10:25 05/09/18 10:00 05/09/18 10:00 Intake and Output: 05/09/18 05/09/18 06:59 18:59 Intake Total 1035 Output Total 400 Balance -400 1035 - Medications Medications: Current Medications Acetaminophen (Tylenol 650mg/20.3ml Solution Ud) 650 mg PO Q6H PRN PRN Reason: Pain, Mild (1-3) Last Admin: 05/06/18 16:11 Dose: 650 mg Acetaminophen (Tylenol 650mg/20.3ml Solution Ud) 650 mg PO Q6H PRN PRN Reason: fever Last Admin: 05/08/18 20:30 Dose: 650 mg Acetylcysteine (Acetylcysteine 20%) 4 ml IH TIDRESP [facility] Last Admin: 05/09/18 07:43 Dose: 4 ml Apixaban (Eliquis) 5 mg PEG BID [facility]; Protocol Last Admin: 05/09/18 09:37 Dose: 5 mg Atenolol (Tenormin) 25 mg PO DAILY [facility] Last Admin: 05/09/18 09:38 Dose: 25 mg Budesonide (Pulmicort Respules) 0.5 mg IH TIDRESP [facility] Last Admin: 05/09/18 07:44 Dose: 0.5 mg Digoxin (Digoxin) 0.125 mg PO 1400 [facility] Last Admin: 05/08/18 14:23 Dose: 0.125 mg Famotidine (Pepcid) 40 mg PEG HS [facility] Last Admin: 05/08/18 21:57 Dose: 40 mg Ferrous Gluconate (Fergon) 324 mg PO TID [facility] Last Admin: 05/09/18 09:38 Dose: 324 mg Furosemide (Lasix) 20 mg PO DAILY [facility] Last Admin: 05/09/18 09:38 Dose: 20 mg Meropenem (Merrem Iv 1 Gm Premix) 1 gm in 50 mls @ 100 mls/hr IVPB Q8 [facility]; Protocol Last Admin: 05/09/18 09:38 Dose: 100 mls/hr Vancomycin HCl (Vancomycin 1gm) 1 gm in 250 mls @ 167 mls/hr IVPB Q12H [facility]; Protocol Last Admin: 05/09/18 09:39 Dose: 167 mls/hr Ipratropium [place] (Atrovent) 0.5 mg IH TIDRESP [facility] Last Admin: 05/09/18 07:43 Dose: 0.5 mg Levalbuterol HCl (Xopenex) 1.25 mg IH [id number] PRN PRN Reason: Shortness of Breath Last Admin: 05/08/18 19:30 Dose: 1.25 mg Levetiracetam (Keppra) 500 mg PEG Q12 [facility] Last Admin: 05/09/18 09:37 Dose: 500 mg Magnesium Oxide (Mag-Ox) 400 mg PEG BID [facility] Last Admin: 05/09/18 09:38 Dose: Not Given Sodium Hypochlorite (Dakins Solution 0.25%) 0 ml TOP DAILY [facility] Last Admin: 05/09/18 10:13 Dose: 1 appl Verapamil HCl (Calan Tab) 80 mg PO TID [facility] Last Admin: 05/09/18 09:44 Dose: Not Given - Labs Labs: 05/09/18 05:20 05/09/18 05:20 PT 16.5 SECONDS (9.4-12.5) H 04/13/18 10:50 INR 1.42 04/13/18 10:50 APTT 28.7 Seconds (25.1-36.5) 04/13/18 10:50 - Constitutional Appears: Cachectic, Chronically Ill - Eye Exam Eye Exam: Normal appearance, PERRL - ENT Exam ENT Exam: Mucous Membranes Moist - Respiratory Exam Respiratory Exam: Decreased Breath Sounds, NORMAL BREATHING PATTERN - Cardiovascular Exam Cardiovascular Exam: REGULAR RHYTHM, +S1, +S2 - GI/Abdominal Exam GI & Abdominal Exam: Soft, Hypoactive Bowel Sounds - Extremities Exam Additional comments: contractures - Neurological Exam Neurological Exam: Alert - Skin Skin Exam: Pallor, Warm Assessment and Plan - Assessment and Plan (Free Text) Assessment: 72 year old female with history of dementia, HTN,CVA right alfa paresis,liver cirrhosis, anemia, A Fib,multiple decubiti of sacrum, hip and heels, sepsis who is admitted with sepsis due to HCAP ,UTI, anemia, respiratory insufficiency secondary to mucus plugging Patient more alert, responding to simple command . No events overnight. Discussed with Dr Fernandez, plan is to discharge to [facility] Plan: as per Dr Fernandez, discharge today
[2018-05-09 12:41] VITALS: TEMP 98
--- NOTE | 2018-05-09 14:05 | PN ---
DATE: 05/09/2018 PULMONARY PROGRESS NOTE REFERRING PHYSICIAN: Mariana Fernandez MD SUBJECTIVE: The patient is lying in bed, no acute distress, appears to be doing much better than yesterday, high-flow oxygen ongoing via high flow nasal cannula. No overnight events reported. No respiratory distress, hemoptysis, hematosis, hematuria, diarrhea, leg pain or leg swelling reported. OBJECTIVE: GENERAL: No acute distress. VITAL SIGNS: Blood pressure 114/62, pulse 122, oxygen saturation 100%, temperature 97.1. HEENT: Moist mucous membranes. NECK: Supple. No JVD. CHEST: Diminished breath sounds, rhonchi bilaterally. CARDIOVASCULAR: S1, S2, tachycardic. ABDOMEN: Soft. No distension. No organomegaly. Gastrostomy tube in place. EXTREMITIES: No bilateral lower extremity edema. Multiple pressure ulcers to lower extremity. Bilateral lower extremity contractures. NEUROLOGIC: Awake, nonverbal. MEDICATIONS: Reviewed. Tylenol 650 mg every 6 hours p.r.n., mild pain, Tylenol 650 mg every 6 hours p.r.n. for fever, Mucomyst 4 mL inhalation 3 times a day, Eliquis 5 mg twice a day, atenolol 25 mg daily, Pulmicort 0.5 mg inhalation 3 times a day, digoxin 0.125 mg p.o. daily, Pepcid 40 mg at bedtime, ferrous gluconate 324 mg p.o. 3 times a day, Lasix 20 mg p.o. daily, Atrovent 0.5 mg inhalation 3 times a day, Xopenex 1.25 mg every 6 hours p.r.n., Keppra 500 mg every 12 hours, magnesium oxide 400 mg twice a day, meropenem 1 g every 8 hours, Dakin's Solution topically to affected area, vancomycin 1 g every 12 hours, verapamil 80 mg p.o. 3 times a day. LABORATORY DATA: Reviewed. WBC 30.2, RBC 3.66, hemoglobin 9.3, hematocrit 31.5, platelets 462. PCO2 43, PO2 263, HCO3 is 32. ABG, pH 7.48. Sodium 124, potassium 4.2, chloride 118, carbon dioxide 34, anion gap 6, BUN 76, creatinine 0.6, GFR greater than 60, random glucose 104, calcium 9.1, phosphorus 3.4, magnesium 2.9, total bilirubin 0.4. AST 53, ALT 42, alkaline phosphatase 125, total protein 6.5, albumin 2.7, globulin 3.9, albumin-globulin ratio 0.7. Urinalysis; urine protein 100, urine blood large, urine leukocyte esterase large. DIAGNOSTIC DATA: Chest x-ray shows no acute findings, interval re-expansion of the left lung, moderate pulmonary venous congestion and small right pleural effusion. IMPRESSION AND PLAN: Healthcare-associated pneumonia, urinary tract infection, multiple pressure decubitus ulcers, history of head and neck cancer, chronic lung disease, oropharyngeal dysphagia, had gastrostomy tube, history of stroke, cirrhotic liver, diabetes, leukocytosis present. Pulmonary point of view, continue high-flow oxygen, continue inhaled bronchodilators, continue antibiotic therapy. The patient will need follow up chest x-ray to follow up on pleural effusion. The patient does appear to be doing better today. Case discussed with Dr. Fernandez; sketch artist, Dr. Georges. Case also discussed with palliative care nurse practitioner. The patient is to be discharged to long-term acute care hospital today for continuation of care. This patient was seen and examined with Dr. Cruz. Discussed assessment and plan as described above. Thank you for this consult and we will follow with you. Bryn Rosa APN Fatoumata Cruz MD
[2018-05-09 14:09] VITALS: BP 107/61; PULSE 126; RESP 16; O2SAT 97
--- NOTE | 2018-05-09 14:41 | PQF ---
PROVIDER RESPONSE TEXT: Aspiration pneumonia REVIEWER QUERY TEXT: Pneumonia Specificity Pneumonia is documented in the Medical Record. Please specify the type of pneumonia and the causative organism (includes probable or suspected) Such as: Type: -- Aspiration pneumonia (please also specify the aspirate) - [place] (please specify cause) - Please indicate if the aspiration is postprocedure -- Bacterial (please document suspected or probable organism) -- Bronchopneumonia (please document suspected or probable organism) -- Interstitial pneumonia -- Organizing pneumonia / BOOP -- Pneumonia with influenza, phong flu, or H1N1 flu -- RSV -- Tuberculosis, pulmonary -- Viral -- Other, please specify The patient's Clinical Indicators include: Documentation of HCAP requires clarification of TYPE or CAUSE. Hx CVA, feeding difficulty w/ G-tube. CXR 04/29 w/ infiltrates Rt mid to lower lung field. Is this possible ASPIRATION PNA Query created by: Florina Kraus on 05/01/2018 9:38 AM Electronically signed by: Fatoumata Cruz MD 05/09/2018 2:37 PM
--- NOTE | 2018-05-09 14:58 | CP.PCM.PN ---
Subjective - Date & Time of Evaluation Date of Evaluation: 05/09/18 Time of Evaluation: 10:30 - Subjective Subjective: No fevers, but patient had severe mucus plugging and patient is now in the ICU. Awake but feels weak. Objective - Vital Signs/Intake and Output Vital Signs (last 24 hours): Temp Pulse Resp BP Pulse Ox 98.1 F 113 H 23 82/38 L 88 L 05/08/18 09:01 05/08/18 14:21 05/08/18 14:00 05/08/18 14:21 05/08/18 14:00 Intake and Output: 05/08/18 05/08/18 06:59 18:59 Intake Total 0 Output Total 325 Balance -325 - Medications Medications: Current Medications Acetaminophen (Tylenol 650mg/20.3ml Solution Ud) 650 mg PO Q6H PRN PRN Reason: Pain, Mild (1-3) Last Admin: 05/06/18 16:11 Dose: 650 mg Acetaminophen (Tylenol 650mg/20.3ml Solution Ud) 650 mg PO Q6H PRN PRN Reason: fever Last Admin: 05/01/18 04:39 Dose: 650 mg Acetylcysteine (Acetylcysteine 20%) 4 ml IH TIDRESP [facility] Last Admin: 05/08/18 14:05 Dose: 4 ml Apixaban (Eliquis) 5 mg PEG BID [facility]; Protocol Last Admin: 05/08/18 11:42 Dose: 5 mg Atenolol (Tenormin) 25 mg PO DAILY [facility] Last Admin: 05/08/18 11:43 Dose: 25 mg Budesonide (Pulmicort Respules) 0.5 mg IH TIDRESP [facility] Last Admin: 05/08/18 07:54 Dose: 0.5 mg Digoxin (Digoxin) 0.125 mg PO 1400 [facility] Last Admin: 05/08/18 14:23 Dose: 0.125 mg Famotidine (Pepcid) 40 mg PEG HS [facility] Last Admin: 05/07/18 22:29 Dose: 40 mg Ferrous Gluconate (Fergon) 324 mg PO TID [facility] Last Admin: 05/08/18 14:26 Dose: Not Given Furosemide (Lasix) 20 mg PO DAILY [facility] Last Admin: 05/08/18 11:42 Dose: Not Given Ipratropium [place] (Atrovent) 0.5 mg IH TIDRESP [facility] Last Admin: 05/08/18 14:05 Dose: 0.5 mg Levalbuterol HCl (Xopenex) 1.25 mg IH S1STNDN PRN PRN Reason: Shortness of Breath Last Admin: 05/07/18 20:10 Dose: 1.25 mg Levetiracetam (Keppra) 500 mg PEG Q12 [facility] Last Admin: 05/08/18 11:43 Dose: 500 mg Magnesium Oxide (Mag-Ox) 400 mg PEG BID [facility] Last Admin: 05/08/18 11:42 Dose: 400 mg Sodium Hypochlorite (Dakins Solution 0.25%) 0 ml TOP DAILY [facility] Last Admin: 05/07/18 12:00 Dose: 1 appl Verapamil HCl (Calan Tab) 80 mg PO TID [facility] Last Admin: 05/08/18 14:21 Dose: Not Given - Labs Labs: 05/08/18 03:20 05/08/18 03:20 PT 16.5 SECONDS (9.4-12.5) H 04/13/18 10:50 INR 1.42 04/13/18 10:50 APTT 28.7 Seconds (25.1-36.5) 04/13/18 10:50 - Constitutional Appears: Cachectic, Chronically Ill - Head Exam Head Exam: NORMAL INSPECTION - Respiratory Exam Respiratory Exam: Decreased Breath Sounds - Cardiovascular Exam Cardiovascular Exam: +S1, +S2 - GI/Abdominal Exam GI & Abdominal Exam: Soft. absent: Tenderness Assessment and Plan - Assessment and Plan (Free Text) Plan: Assessment new onset systemic inflammatory response syndrome from probable mucus plugging while treating sepsis due to HCAP and UTI with Pseudomonas, at high risk for ongoing aspiration due to multiple sacral ulcers, grew Pseudomonas history of sepsis due to right lower lobe HCAP with ESBL E. coli left hip wound infection HTN COPD atrial fibrillation throat cancer dementia history of CVA of left frontal lobe liver cirrhosis Plan continue Vancomycin and Merrem day 11 - will repeat blood, sputum cx, PCT; CXR from yesterday showed whiteout of left lung and today's CXR looks better overall prognosis is poor patient now in the ICU for closer observation and critical management
--- NOTE | 2018-05-09 15:59 | PN ---
DATE: 05/08/2018 SEX OF THE PATIENT: Male. AGE OF THE PATIENT: 72. REFERRING PHYSICIAN: Mariana Fernandez MD REASON FOR CONSULTATION: Cardiac evaluation, elevated BNP, history of pacemaker, history of atrial fibrillation, on Eliquis. The patient has a contracted upper extremity, lying flat on the bed. SUBJECTIVE: Denies any chest pain or shortness of breath. No palpitations. OBJECTIVE: GENERAL: Not in apparent distress though has a contracted upper extremity. VITAL SIGNS: Heart rate 120, blood pressure 105/65. HEENT: PERRLA. Extraocular muscles intact. NECK: Supple. No carotid bruit or thyromegaly. CHEST: Clear to auscultation. HEART: S1 and S2, regular. ABDOMEN: Soft. EXTREMITIES: Clubbing and cyanosis negative. LABORATORY DATA: WBC 28.1, hemoglobin 8.7, hematocrit 28.9, platelet count 425. Chemistry shows sodium 152, potassium 4.2, chloride 119, carbon dioxide 33, anion gap of 4, BUN 75, creatinine 0.9. Chest x-ray shows left white out. EKG showed A-flutter, 2:1, rate 119. IMPRESSION: A 72-year-old male with past medical history significant for atrial fibrillation/flutter, sick sinus syndrome, cerebrovascular accident, contracted upper extremity, probably left sided white out, possibly pneumonia or occlusion of the bronchus with large mucous plug. Probably this is secondary to tachycardia; is secondary to collapse of the lung. Recent echocardiogram done that shows left ventricular hyperdynamic mild tricuspid regurgitation, moderate pulmonary hypertension, pacemaker noted, no clear vegetation noted. Blood culture remains negative since admission on 04/18/2018. The patient has a percutaneous endoscopic gastrostomy placement, history of head and neck cancer, status post radiation chemotherapy. RECOMMENDATIONS: Consider bronchoscopy, aggressive pulmonary toilet in the interim. Continue broad-spectrum antibiotics. Continue digoxin. Continue Eliquis. Continue metoprolol. Continue atenolol and continue broad-spectrum antibiotics but needs probably bronchoscopy and pulmonary toilet to pull the possible mucous plug with collapse of the lung. That is why probably the patient has tachycardia. We will put Dr. Cruz for reevaluation. Probably these are all tachycardia secondary to mucous plug and obstructing of the left bronchus. Thank you Dr. Fernandez for providing us the opportunity in taking care of the patient. We will put Dr. Cruz for reevaluation for possible bronchoscopy of because the elevated WBC of 28,000 and collapse of the lung. We will also increase free fluid through the PEG for hypernatremia. Fatoumata Huynh MD
== END 2018-05-09 14:53 | DRG 871 ==
LOC: ED 09:56 → ERH 12:20 → 5RSO 14:51 → OBSVTOIN 04-15 18:15 → 5RSO 04-22 22:37 → 5RNO 04-27 08:45 → 3RSO 05-08 00:21 → CCU 05-08 13:28
PROVIDERS: ADMIT Internal Medicine; ATTEND Internal Medicine
PROC: 05H533Z Insertion of Infusion Device into Right Subclavian Vein, Percutaneous Approach (ICD-10-PCS; principal; 2018-04-20)
PROC: 05H533Z Insertion of Infusion Device into Right Subclavian Vein, Percutaneous Approach (ICD-10-PCS; 2018-05-01)
PROC: 30233N1 Transfusion of Nonautologous Red Blood Cells into Peripheral Vein, Percutaneous Approach (ICD-10-PCS; 2018-05-01)
PROC: 3E0F7GC Introduction of Other Therapeutic Substance into Respiratory Tract, Via Natural or Artificial Opening (ICD-10-PCS; 2018-05-01)
DX: A41.9 Sepsis, unspecified organism (principal); L89.153 Pressure ulcer of sacral region, stage 3; L89.223 Pressure ulcer of left hip, stage 3; E43 Unspecified severe protein-calorie malnutrition; J96.91 Respiratory failure, unspecified with hypoxia; J69.0 Pneumonitis due to inhalation of food and vomit; I69.351 Hemiplegia and hemiparesis following cerebral infarction affecting right dominant side; J44.0 Chronic obstructive pulmonary disease with (acute) lower respiratory infection; N39.0 Urinary tract infection, site not specified; Z68.1 Body mass index [BMI] 19.9 or less, adult; E87.1 Hypo-osmolality and hyponatremia; I48.92 Unspecified atrial flutter; R64 Cachexia; J98.19 Other pulmonary collapse; L89.629 Pressure ulcer of left heel, unspecified stage; E86.0 Dehydration; E87.8 Other disorders of electrolyte and fluid balance, not elsewhere classified; B96.5 Pseudomonas (aeruginosa) (mallei) (pseudomallei) as the cause of diseases classified elsewhere; R44.1 Visual hallucinations; K74.60 Unspecified cirrhosis of liver; I10 Essential (primary) hypertension; D64.9 Anemia, unspecified; F03.90 Unspecified dementia, unspecified severity, without behavioral disturbance, psychotic disturbance, mood disturbance, and anxiety; G40.909 Epilepsy, unspecified, not intractable, without status epilepticus; L98.429 Non-pressure chronic ulcer of back with unspecified severity; Y95 Nosocomial condition; M24.574 Contracture, right foot; I48.2 Chronic atrial fibrillation; F32.9 Major depressive disorder, single episode, unspecified; Z96.642 Presence of left artificial hip joint; I08.1 Rheumatic disorders of both mitral and tricuspid valves; E11.65 Type 2 diabetes mellitus with hyperglycemia; R13.12 Dysphagia, oropharyngeal phase; M24.575 Contracture, left foot; I27.20 Pulmonary hypertension, unspecified; Z87.440 Personal history of urinary (tract) infections; T17.990A Other foreign object in respiratory tract, part unspecified in causing asphyxiation, initial encounter; Z79.01 Long term (current) use of anticoagulants; Z87.01 Personal history of pneumonia (recurrent); Z93.1 Gastrostomy status; Z85.819 Personal history of malignant neoplasm of unspecified site of lip, oral cavity, and pharynx; Z74.01 Bed confinement status; Z95.810 Presence of automatic (implantable) cardiac defibrillator; Z92.3 Personal history of irradiation; Z87.891 Personal history of nicotine dependence